=== PATIENT | female | born 1965 | race Caucasian/White ===

== ENCOUNTER 2020-07-26 12:52 | Outpatient (CLI) | payer OTHER, SELFPAY ==
--- NOTE | ~2020-07-26 | XR_ITS ---
EXAMINATION: XR chest 2V EXAM DATE: 07/26/2020 13:35 INDICATION: Post COVID. TECHNIQUE: Frontal and lateral projections of the chest obtained and reviewed. Comparison is made to prior examination from 02/17/2018. FINDINGS: The lungs are clear. There are no pleural effusions. The cardiomediastinal silhouette is within normal limits. There is no pneumothorax suspected. Patient has diffuse idiopathic skeletal h yperostosis (DISH). IMPRESSION: No acute cardiopulmonary findings. Reviewed, dictated and finalized at location A. YTICAL ENGINEER
== END 2020-07-26 12:53 | disposition home or self-care (01) ==
LOC: CHSIMG 12:56
PROVIDERS: PCP Internal Medicine; Visit Provider Internal Medicine
DX: R06.00 Dyspnea, unspecified (principal); Z09 Encounter for follow-up examination after completed treatment for conditions other than malignant neoplasm; Z86.16 Personal history of COVID-19; R52 Pain, unspecified
CPT/HCPCS: 71046

== ENCOUNTER 2020-07-27 08:25 | Outpatient (CLI) | payer OTHER, SELFPAY ==
[2020-07-27 10:32] LABS: Estimated Glomerular Filt Rate > 60
== END 2020-07-27 08:26 | disposition home or self-care (01) ==
PROVIDERS: PCP Internal Medicine; Visit Provider Internal Medicine
DX: R06.02 Shortness of breath (principal); R79.1 Abnormal coagulation profile; Z86.16 Personal history of COVID-19
CPT/HCPCS: 94060; 94726; 94729; 95012

== ENCOUNTER 2020-07-27 14:29 | Emergency (ER) | payer OTHER, SELFPAY ==
--- NOTE | ~2020-07-27 | CT_ITS ---
EXAMINATION: CTA chest PE protocol DATE: 07/27/2020 16:47 INDICATION: Shortness of breath TECHNIQUE: Computed tomography angiography (CTA) of the chest was performed with 100 mL Omnipaque-350 intravenous contrast timed to evaluate the pulmonary arteries. Coronal maximum intensity projection 3D-reconstructions were created by the technologist. The dose-length product (DLP) was 1160.04 mGy-cm . Automated exposure control and iterative reconstruction technique were employed. COMPARISON: None. FINDINGS: The pulmonary arteries are poorly opacified limiting sensitivity for pulmonary embolism. No central pulmonary emboli are identified. There is mild dependent atelectasis. A 3 mm nodule of the l eft lower lobe likely reflects old granulomatous disease. There is no pleural effusion or pneumothora x. No pathologically enlarged thoracic lymph nodes are identified. The heart size is normal. There is moderate thoracic spondylosis. IMPRESSION: 1. No pulmonary embolism identified, sensitivity limited by poor opacification of the pulmonary arter ies. No acute cardiopulmonary abnormality identified. Reviewed, dictated and finalized at location A. E ATTENDANT IMPRESSION: 1. No pulmonary embolism identified, sensitivity limited by poor opacification of the pulmonary arteries. No acute cardiopulmonary abnormality identified.
[2020-07-27] MEDS: LORazepam INJ (*CRX) 2 MG/ML VIAL 1 MG IV PUSH (15:02)
[2020-07-27 15:05] VITALS: BP 116/105; PULSE 72; RESP 20; TEMP 36.3; O2SAT 100
[2020-07-27 15:06] LABS: Basophils Absolute Auto 0.04 K/mm3 (0.00-0.10); Basophils Percent Auto 0.6 % (0.0-1.0); Eosinophils Absolute Auto 0.04 K/mm3 (0.02-0.50); Eosinophils Percent Auto 0.6 % (1.0-6.0); Hematocrit 37.4 % (35.0-49.0); Hemoglobin 12.3 g/dL (12.0-15.0); Immature Granulocyte Absolute 0.02 K/mm3 (0.00-0.00); Immature Granulocyte Percent A 0.3 % (0.0-0.0); Lymphocytes Absolute Auto 1.55 K/mm3 (1.10-4.50); Lymphocytes Percent Auto 23.9 % (18.0-42.0); Mean Corpuscular HGB Conc 32.9 g/dL (32.0-36.0); Mean Corpuscular Hemoglobin 29.5 pg (27.0-31.0); Mean Corpuscular Volume 89.7 fL (78.0-102.0); Mean Platelet Volume 10.8 fl (9.2-11.8); Monocytes Absolute Auto 0.37 K/mm3 (0.10-0.90); Monocytes Percent Auto 5.7 % (2.0-11.0); Neutrophils Absolute Auto 4.5 K/mm3 (1.7-7.2); Neutrophils Percent Auto 68.9 % (50.0-70.0); Platelet Count Result 321 K/mm3 (150-420); Red Blood Count 4.17 M/mm3 (4.20-5.40); Red Cell Distribution Width 13.3 % (11.6-14.4); White Blood Count 6.5 K/mm3 (4.8-10.8)
[2020-07-27 15:20] LABS: Partial Thromboplastin Time 25.5 SEC (23.90-30.70); Prothrombin Time 11.1 Seconds (9.50-12.10)
--- NOTE | 2020-07-27 17:19 | ED.ANXIETY ---
HPI - Anxiety General Chief Complaint: Anxiety Stated Complaint: ?blood clot Source: patient Mode of arrival: wheelchair Limitations: no limitations History of Present Illness HPI narrative: this is a 55 old female that presents with shortness of breath and sharp pain in her right mid back area patient is status post COVID was diagnosed back in approximately 2 months ago and was in [facility] and treated currently has seen her primary care physician and was having episodes of shortness of breath her primary care physician ordered a D-dimer and was sent for a CT a. The patient during the CT I had developed severe anxiety and was unable to go through with the procedure even though she was given p.o. Ativan. Her primary care physician was concerned and sent to the emergency room for further evaluation. Patient appears stable O2 sats 100% on room air, patient is afebrile and her blood pressure is 116/105, currently there is no cough no congestion no chest tightness no chest pain no fever chills no nausea vomiting. Patient has pain in her right mid back area is reproducible with palpation, patient is also having some numbness and tingling radiating down into her right arm. No neurological deficits patient appears comfortable at this time was given 1 mg Ativan IV and was able to perform the CT to rule out a pulmonary embolism. complaint: anxiety and shortness of breath Onset (ago): day(s) Symptoms: dyspnea Severity: moderate Quality: constant Place: home History of similar episodes: Yes Provoking factors: emotional stress Relieving factors: nothing Exacerbating factors: thinking about event Associated symptoms: shortness of breath Related Data Allergies Allergy/AdvReac Type Severity Reaction Status Date / Time No Known Allergies Allergy Mild Unverified 08/22/06 13:30 Review of Systems Review of Systems: All systems reviewed & are unremarkable except as noted in HPI and below PMFSH Past Medical History Medical History Anxiety Fibromyalgia HTN (hypertension) Family History Family History Other Family history of arthritis Hypertension Social History Social History Smoking status: Never smoker Alcohol intake: current Gender identity (if verbalized by the patient): Male Exam Const: General: no acute distress and alert Orientation/consciousness: patient oriented x3 HENMT: Head: normal to inspection Eyes: Conjunctivae: conjunctivae normal Pupils: Equal, round and reactive pupils present EOM: EOMs intact bilaterally Neck: Neck: normal visual inspection, no lymphadenopathy and no meningeal signs Chest: Chest palpation & inspection: normal inspection of the chest Resp: Effort & Inspection: normal respiratory effort Auscultation: clear to auscultation bilaterally Cardio: Rate: regular rate Rhythm: regular rhythm GI: GI Palp: Yes Soft to palpation : General: Yes no CVA tenderness Urinary Catheter: Urinary Catheter: patent and draining Back/Spine/Pelvis: Back: no CVA tenderness Skin: General skin exam: normal color Rashes: no rashes Neuro: General: moves all extremities, no meningeal signs and no focal motor deficits Extrem: General: normal to inspection Course Course Emergency Course: reassessment patient doing well currently minimal shortness of breath no cough no chest pain her anxiety is has improved with some IV Ativan, reviewed CT scan which showed no pulmonary embolism, advised patient to follow-up with primary care physician and will prescribed Xanax for anxiety. Vital Signs Vital signs: Vital Signs Temperature 36.3 C L 07/27/20 15:05 Pulse Rate 72 07/27/20 15:05 Respiratory Rate 20 07/27/20 15:05 Blood Pressure 116/105 H 07/27/20 15:05 Pulse Oximetry 100 07/27/20 15:05 Temperature 36
[2020-07-27 17:50] VITALS: BP 140/88; PULSE 79; RESP 20; O2SAT 95
== END 2020-07-27 17:50 | disposition home or self-care (01) ==
PROVIDERS: Emergency Provider Emergency Medicine; PCP Internal Medicine
DX: F41.9 Anxiety disorder, unspecified (principal)
CPT/HCPCS: 36415; 71275; 85025; 85610; 85730; 96374; 99283; 99284; J2060; Q9967

== ENCOUNTER 2022-08-27 15:35 | Outpatient (CLI) | payer OTHER, SELFPAY ==
--- NOTE | ~2022-08-27 | XR_ITS ---
EXAMINATION: XR chest 2V Exam Date/Time: 08/27/2022 16:15 WORKERS COMPENSATION LEGAL SECRETARY HISTORY: Dyspnea, HTN, elevated pulse rate today. Comparison: 07/26/2020, CTPA 07/27/2020. RESULT: Lines, tubes, and devices: None. Lungs and pleura: Clear. Cardiomediastinal silhouette: Stable. Dilated central pulmonary arteries as can be seen with pulmona ry arterial hypertension. Other: No acute osseous or upper abdominal finding. 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 IMPRESSION: No acute cardiopulmonary process. Findings suggestive of pulmonary arterial hypertension Reviewed, dictated and finalized at location K. ERS COMPENSATION LEGAL SECRETARY IMPRESSION: No acute cardiopulmonary process. Findings suggestive of pulmonary arterial hyp ertension
--- NOTE | ~2022-08-27 | XR_ITS ---
EXAM: XR knee RT 3V DATE: 08/27/2022 17:02 HISTORY: Chronic right knee pain, no injury. . COMPARISON: 02/17/2018. FINDINGS: Normal mineralization. No fracture or dislocation. No lytic or blastic lesion. Severe medi al and lateral joint space narrowing. Severe tricompartmental osteophytosis. No erosion or periosteal change. Soft tissues within normal limits. IMPRESSION: Severe right knee osteoarthritis. Reviewed, dictated and finalized at location K. GER PAYROLL
[2022-08-27 16:30] LABS: Add Urine Microscopic? NO; Appearance Urine Clear (Clear); Basophils Absolute Auto 0.06 K/mm3 (0.00-0.10); Basophils Percent Auto 0.9 % (0.0-1.0); Bilirubin Urine Negative (Negative); Blood Urine Negative (Negative); Color Urine Yellow (Yellow); Eosinophils Absolute Auto 0.11 K/mm3 (0.02-0.50); Eosinophils Percent Auto 1.6 % (1.0-6.0); Glucose Urine UA Negative (Negative); Hematocrit 38.1 % (35.0-49.0); Hemoglobin 12.5 g/dL (12.0-15.0); Immature Granulocyte Absolute 0.02 K/mm3 (0.00-0.00); Immature Granulocyte Percent A 0.3 % (0.0-0.0); Ketones Urine Negative (Negative); Leukocyte Esterase Ur Negative (Negative); Lymphocytes Absolute Auto 1.73 K/mm3 (1.10-4.50); Lymphocytes Percent Auto 24.7 % (18.0-42.0); Mean Corpuscular HGB Conc 32.8 g/dL (32.0-36.0); Mean Corpuscular Hemoglobin 30.5 pg (27.0-31.0); Mean Corpuscular Volume 92.9 fL (78.0-102.0); Mean Platelet Volume 11.3 fl (9.2-11.8); Monocytes Absolute Auto 0.49 K/mm3 (0.10-0.90); Neutrophils Absolute Auto 4.6 K/mm3 (1.7-7.2); Neutrophils Percent Auto 65.5 % (50.0-70.0); Nitrate Urine Negative (Negative); Platelet Count Result 266 K/mm3 (150-420); Protein Urine Negative (Negative); Red Cell Distribution Width 13.3 % (11.6-14.4); Specific Grav Ur >= 1.030 (1.010-1.020); Urobilinogen Urine 0.2 mg/dL (0.2-1.0); pH Urine 5.5 (5.0-8.0)
[2022-08-27 16:57] LABS: Alanine Aminotransferase 34 U/L (14-59); Alkaline Phosphatase 70 U/L (46-116); Anion Gap 11 mmol/L (8-16); Aspartate Amino Transferase 18 U/L (15-37); Bilirubin,Total 0.7 mg/dL (0.00-1.00); Blood Urea Nitrogen 12 mg/dL (7-18); Calcium 9.4 mg/dL (8.5-10.1); Carbon Dioxide 27 mmol/L (21-32); Chloride 103 mmol/L (98-108); Cholesterol 229 mg/dL (0-200); Estimated Glomerular Filt Rate > 60; Free T3 2.24 pg/mL (2.18-3.98); Free T4 Free Thyroxine 0.99 ng/dL (0.76-1.46); Glucose 96 mg/dL (70-99); HDL Direct 53 mg/dL (40-60); LDL Cholesterol Calculated 144 mg/dL (<130); NT Pro B Type Natriuretic Pept 109 pg/mL (0-125); Osmolality Calculated 291 mOsm/kg (285-295); Sodium 141 mmol/L (136-145); Thyroid Stimulating Hormone 2.69 uIU/mL (0.36-3.74); Total Protein 7.7 g/dL (6.4-8.2); Triglycerides 159 mg/dL (0-150)
[2022-08-27 17:01] LABS: CRP < 0.5 mg/dL (0.0-0.9)
== END 2022-08-27 15:36 | disposition home or self-care (01) ==
PROVIDERS: PCP Internal Medicine; Visit Provider Internal Medicine
DX: R06.00 Dyspnea, unspecified (principal); I10 Essential (primary) hypertension; M25.561 Pain in right knee; M17.11 Unilateral primary osteoarthritis, right knee
CPT/HCPCS: 36415; 71046; 73562; 80053; 80061; 81003; 83880; 84439; 84443; 84481; 84550; 85025; 86140

== ENCOUNTER 2022-09-09 12:10 | Outpatient (CLI) | payer OTHER, SELFPAY ==
--- NOTE | 2022-09-09 01:00 | ECHO_ITS ---
Patient Info Name: Olga Kong Age: 57 years : 1965 Gender: Female Ht: 64 in Wt: 407 lbs BSA: 3.02 m2 HR: 76 bpm BP: 191 / 110 mmHg Heart Rhythm: Sinus Rhythm Technical Quality: Fair Exam Date: 09/09/2022 1:06 PM Exam Location: [facility] Patient Status: Outpatient Admit Date: 09/09/2022 Staff Ordering Physician: Tushar West MD Customer Service Assistant: Malika Rodriguez RDCS Attending Provider: Tushar West MD Exam Type: CA echo doppler color flow Study Info Indications - pulmonary arterial HTN Complete two-dimensional, color flow and Doppler transthoracic echocardiogram is performed. Summary 1. Complete two-dimensional, color flow and Doppler transthoracic echocardiogram is performed. 2. Left ventricular chamber dimension is normal. 3. Left ventricular systolic function is normal, estimated at 60-65%. 4. The left ventricular diastolic function is grade II diastolic dysfunction. 5. There is trace mitral valve regurgitation. 6. No pulmonary hypertension, estimated pulmonary arterial systolic pressure is 21 mmHg. 7. There is mild pulmonic regurgitation. Left Ventricle Tissue doppler E/e' was not calculated. Left ventricular chamber dimension is normal. Left ventricular systolic function is normal, estimated at 60-65%. The left ventricular diastolic function is grade II diastolic dysfunction. Right Ventricle Right ventricular systolic function is normal and with normal TAPSE 2.2 cm. Right ventricular chamber dimension is normal. Left Atria Left atrial chamber dimension is normal. Right Atria Right atrial chamber dimension is normal. Aortic Valve The aortic valve is trileaflet. There is no aortic valve stenosis. There is no aortic valve regurgitation. Pulmonic Valve There is mild pulmonic regurgitation. Mitral Valve There is no mitral valve stenosis. There is trace mitral valve regurgitation. Tricuspid Valve There is no tricuspid valve regurgitation. No pulmonary hypertension, estimated pulmonary arterial systolic pressure is 21 mmHg. Pericardium/Pleural There is no pericardial effusion. Inferior Vena Cava Normal inferior vena cava with >50% collapse upon inspiration consistent with normal right atrial pressure, 5 mmHg. Aorta The aortic root size at the sinus of Valsalva is normal. Left Ventricular Outflow Tract Name Value Normal LVOT 2D LVOT Diameter 2.0 cm LVOT Doppler LVOT Peak Velocity 87 cm/s LVOT Peak Gradient 3 mmHg LVOT Mean Gradient 2 mmHg LVOT VTI 21 cm LVOT VTI/AV VTI Ratio 0.6 LVOT Stroke Volume 64 ml Pulmonic Valve Name Value Normal RVOT Doppler RVOT Peak Gradient 2 mmHg PV Doppler --------
--- NOTE | 2022-09-09 12:27 | ECG_ITS ---
Measurements Intervals [place] Rate: 58 P: 28 [place]: 184 QRS: -38 QRSD: 105 T: 49 QT: 429 QTc: 422 Interpretive Statements SINUS BRADYCARDIA LEFT AXIS DEVIATION BASELINE ARTIFACT- II, III, AVL, AVF BORDERLINE ECG NO PREVIOUS ECG AVAILABLE FOR COMPARISON Electronically Signed On 09-09-2022 13:19:28 LOCAL TELEPHONE OPERATOR by Surinder Young D.O.
== END 2022-09-09 12:11 | disposition home or self-care (01) ==
LOC: CHSIMG 12:13
PROVIDERS: PCP Internal Medicine; Visit Provider Internal Medicine
DX: I27.0 Primary pulmonary hypertension (principal); R00.1 Bradycardia, unspecified; I37.1 Nonrheumatic pulmonary valve insufficiency
CPT/HCPCS: 93005; 93306

== ENCOUNTER 2022-09-30 08:26 | Outpatient (CLI) | payer OTHER, SELFPAY ==
--- NOTE | 2022-10-14 20:33 | WPDHOMESLEEP ---
Sleep Study - Home Unattended Date of Study: 09/30/22 Ordering Provider: Tushar West MD Interpreting Provider: Olga Yusuf MD Home Sleep Study Type: Apnea Link Air Height: 1.63 m Weight: 179.623 kg Body Mass Index: 67.9 Neck Circumference (inches): 18.5 [place]: 4 Reason for Sleep Study Obstructive sleep apnea on BiPAP, needs repeat testing, equipment is old. Sleep History Olga Kong is a 57-year-old woman who has sleep apnea, currently on BiPAP. She is having retesting due her diagnosis of obstructive sleep apnea in 2006, need for new equipment and possibly oxygen. She is having some intolerance with her BiPAP machine. She has increasing dyspnea which she attributes to her COVID-19 illness in 2019. At that time she spent 12 days in an ICU but was not on a ventilator. She use BiPAP and was treated with remdesivir and convalescent plasma. She has long-haul COVID. She has fatigue, paresthesias and anxiety. There is a family history of sleep disordered breathing. She frequently has trouble sleeping with a cold. She occasionally wakes up gasping for breath at night. She frequently has breathing problems at night observed by others. She rarely sweats excessively at night. She rarely notices her heart pounding or beating irregularly at night. She rarely falls asleep during the day, never involuntarily or while driving. She occasionally has loss of muscle tone with strong emotion. She frequently has daytime difficulties due to excessive sleepiness. she is unable to work and is applying for disability. She rarely feels paralyzed on waking or falling asleep. She does not have vivid dreamlike scenes on waking or falling asleep. She is always afraid to go to sleep. She rarely has nightmares. She frequently remembers her dreams. She constantly has racing thoughts. She constantly has feelings of sadness, depression and anxiety. She occasionally has muscular tension. She occasionally notices parts of her body jerking. She occasionally kicks at night. She frequently has crawling and aching feelings in her legs and leg pain during the night. She does not have morning jaw pain. She does not grind her teeth during sleep. She constantly is bothered by pain during the day. She frequently is awakened by pain at night. She constantly wakes up feeling stiff in the morning with sore achy muscles and pain in the neck and spine. She has fatigue, memory problems, concentration difficulties, depression and insomnia. Normal bedtime is 10:00 p.m.. On some nights it may take hours to fall asleep. She typically wakes 2-3 times at night to go to the bathroom and get a drink. She is able to return to sleep usually within 15-30 minutes. She wakes the morning between 7 and 8:00 a.m.. On weekends bedtime is later, between 10:00 p.m. and 12 midnight, waking later, between 8:00 a.m. and 10:00 a.m.. She sometimes takes a nap in the afternoon or evening. A short nap is not refreshing. She is usually drowsy for an hour or longer after waking. She feels better in the evening compared to other times of day. Habits: Never smoked tobacco. Caffeine 2-3 servings a day, hot or cold T. No alcohol or recreational substances. [facility] Past Medical History Medical History (Updated 10/14/22 @ 20:58 by Olga Yusuf MD) Anxiety COVID-19 long hauler Fibromyalgia HTN (hypertension) Obstructive sleep apnea Primary osteoarthritis of right knee Seasonal asthma Surgical History Surgical History (Updated 10/14/22 @ 20:46 by Olga Yusuf MD) History of section Family History Family History Other Family history of arthritis Hypertension Social History Social History Smoking status: Never smoker Alcohol intake: current Gender identity (if verbalized by the patient): Male Medications Home Medications
[2022-10-14 20:59] VITALS: BMI 67.9
--- NOTE | 2022-11-08 17:20 | P.SLEEP_ITS ---
Sleep Study Date of Study: 11/03/2022 Ordering Provider: Tushar West MD Interpreting Physician: Olga Yusuf MD Sleep Study Type: CPAP Titration Height: 1.63 m Weight: 179.623 kg Body Mass Index: 67.9 Neck Circumference (inches): 18.5 [place]: 4 PMFSH Past Medical History Medical History (Updated 10/14/22 @ 20:58 by Olga Yusuf MD) Anxiety COVID-19 long hauler Fibromyalgia HTN (hypertension) Obstructive sleep apnea Primary osteoarthritis of right knee Seasonal asthma Surgical History Surgical History (Updated 10/14/22 @ 20:46 by Olga Yusuf MD) History of section Family History Family History Other Family history of arthritis Hypertension Social History Social History Smoking status: Never smoker Alcohol intake: current Gender identity (if verbalized by the patient): Male Medications Home Medications Medication Instructions Recorded Confirmed Type alprazolam 0.5 mg tablet (Xanax) 0.5 mg PO BID PRN anxiety #20 tabs 07/27/20 Rx Assessment and Plan Data The data obtained during this sleep study is adequate for interpretation. Certification This sleep study has been reviewed by a board certified sleep medicine physician.
== END 2022-10-02 09:50 | disposition home or self-care (01) ==
PROVIDERS: PCP Internal Medicine; Visit Provider Internal Medicine
DX: G47.33 Obstructive sleep apnea (adult) (pediatric) (principal)
CPT/HCPCS: 95806

== ENCOUNTER 2022-11-03 19:35 | Outpatient (CLI) | payer OTHER, SELFPAY ==
--- NOTE | 2022-11-11 19:34 | WPDSLEEPSTUD ---
Sleep Study Date of Study: 11/03/22 Ordering Provider: Tushar West MD Interpreting Physician: Olga Yusuf MD Sleep Study Type: CPAP Titration Height: 1.63 m Weight: 179.623 kg Body Mass Index: 67.9 Neck Circumference (inches): 19 [place]: 4 Reason for Sleep Study * 09/30/2022 Home sleep test with ApneaLink showing severe obstructive sleep apnea, apnea-hypopnea index is 36.9, with mild central sleep apnea.?Patient desaturated 83% and spent 4 minutes below 88%.? Snoring was present.? The patient had a central apnea index of 5.3 which is mild but it is greater than 5, elevated. She presents for a CPAP titration. She had an echocardiogram 09/09/2022 with a normal left ventricular ejection fraction of 60-65%.? Sleep History Olga Kong is a 57-year-old woman who has sleep apnea, currently on BiPAP.? She is having retesting due her diagnosis of obstructive sleep apnea in 2006, need for new equipment and possibly oxygen. ? She is having some intolerance with her BiPAP machine.? She has increasing dyspnea which she attributes to her COVID-19 illness in 2019.? ? At that time ,she spent 12 days in an ICU but was not on a ventilator.? She use BiPAP and was treated with remdesivir and convalescent plasma.? She has long-haul COVID. ? She has fatigue, paresthesias and anxiety.? There is a family history of sleep disordered breathing.? She frequently has trouble sleeping with a cold.? She occasionally wakes up gasping for breath at night.? She frequently has breathing problems at night observed by others.? She rarely sweats excessively at night.? She rarely notices her heart pounding or beating irregularly at night.? She rarely falls asleep during the day, never involuntarily or while driving.? She occasionally has loss of muscle tone with strong emotion.? She frequently has daytime difficulties due to excessive sleepiness.? she is unable to work and is applying for disability. ? She rarely feels paralyzed on waking or falling asleep.? She does not have vivid dreamlike scenes on waking or falling asleep.? She is always afraid to go to sleep.? She rarely has nightmares.? She frequently remembers her dreams.? She constantly has racing thoughts.? She constantly has feelings of sadness, depression and anxiety.? She occasionally has muscular tension.? She occasionally notices parts of her body jerking.? She occasionally kicks at night.??She frequently has crawling and aching feelings in her legs and leg pain during the night.? She does not have morning jaw pain.? She does not grind her teeth during sleep.? She constantly is bothered by pain during the day.? She frequently is awakened by pain at night.? She constantly wakes up feeling stiff in the morning with sore achy muscles and pain in the neck and spine.? She has fatigue, memory problems, concentration difficulties, depression and insomnia. Normal bedtime is 10:00 p.m..? On some nights it may take hours to fall asleep.? She typically wakes 2-3 times at night to go to the bathroom and get a drink.? She is able to return to sleep usually within 15-30 minutes.? She wakes the morning between 7 and 8:00 a.m..? On weekends bedtime is later, between 10:00 p.m. and 12 midnight, waking later, between 8:00 a.m. and 10:00 a.m..? She sometimes takes a nap in the afternoon or evening.? A short nap is not refreshing.? She is usually drowsy for an hour or longer after waking.? She feels better in the evening compared to other times of day. Habits: ? Never smoked tobacco.? Caffeine 2-3 servings a day, hot or cold tea. No alcohol or recreational substances. [facility] Past Medical History Medical History Anxiety COVID-19 long hauler Fibromyalgia HTN (hypertension) Obstructive sleep apnea Primary osteoarthritis of right knee Seasonal asthma Surgical History Surgical History History of section Family History Fam
[2022-11-11 19:37] VITALS: BMI 67.9
== END 2022-11-04 06:44 | disposition home or self-care (01) ==
PROVIDERS: PCP Internal Medicine; Visit Provider Internal Medicine
DX: G25.81 Restless legs syndrome (principal); G47.33 Obstructive sleep apnea (adult) (pediatric); Z68.44 Body mass index [BMI] 60.0-69.9, adult
CPT/HCPCS: 95811

== ENCOUNTER 2024-07-02 10:16 | Outpatient (CLI) | payer MEDICARE, SELFPAY ==
--- NOTE | ~2024-07-02 | XR_ITS ---
XR chest 2V Ordering provider: Tushar West MD History: 59 years Female with . htn, dyspnea/sob x1 week . Comparison: August 27, 2022 FINDINGS: MEDIASTINUM: The cardiac silhouette is not enlarged. LUNGS: No infiltrates, effusions or pneumothorax. OTHER: No free air under the diaphragm. Degenerative changes of the spine patent hepatic. IMPRESSION: No acute cardiopulmonary pathology. Reviewed, dictated and finalized at location A. AL TRAM OPERATOR
--- NOTE | 2024-07-02 10:36 | ECG_ITS ---
Test Date: 2024-07-02 11:01:22 Measurements Intervals [place] Rate: 62 P: 40 AL: 178 QRS: -19 QRSD: 101 T: 78 QT: 388 QTc: 396 Interpretive Statements SINUS RHYTHM WITH MARKED SINUS ARRHYTHMIA NONSPECIFIC T-WAVE ABNORMALITY ABNORMAL ECG Electronically Signed On 07-02-2024 17:31:14 EXPLOSIVES HANDLER by Rashid Godoy M.D.
[2024-07-02 10:53] LABS: Basophils Absolute Auto 0.05 K/mm3 (0.00-0.10); Eosinophils Absolute Auto 0.07 K/mm3 (0.02-0.50); Eosinophils Percent Auto 1.4 % (1.0-6.0); Hemoglobin 12.5 g/dL (12.0-15.0); Immature Granulocyte Absolute 0.01 K/mm3 (0.00-0.00); Immature Granulocyte Percent A 0.2 % (0.0-0.0); Lymphocytes Absolute Auto 1.54 K/mm3 (1.10-4.50); Lymphocytes Percent Auto 30.4 % (18.0-42.0); Mean Corpuscular HGB Conc 32.9 g/dL (32-36); Mean Corpuscular Hemoglobin 30.3 pg (27.0-31.0); Mean Corpuscular Volume 92.2 fL (78.0-102.0); Mean Platelet Volume 10.7 fl (9.2-11.8); Monocytes Absolute Auto 0.36 K/mm3 (0.10-0.90); Monocytes Percent Auto 7.1 % (2.0-11.0); Neutrophils Absolute Auto 3.04 K/mm3 (1.70-7.20); Neutrophils Percent Auto 59.9 % (50.0-70.0); Platelet Count Result 244 K/mm3 (150-420); Red Blood Count 4.12 M/mm3 (4.20-5.40); Red Cell Distribution Width 13.2 % (11.6-14.4); White Blood Count 5.1 K/mm3 (4.8-10.8)
[2024-07-02 10:57] LABS: Bilirubin Urine Negative (Negative); Blood Urine Negative (Negative); Color Urine Light Yellow (Yellow); Glucose Urine UA Negative (Negative); Ketones Urine Negative (Negative); Leukocyte Esterase Ur Negative (Negative); Nitrate Urine Negative (Negative); Protein Urine Negative (Negative); Specific Grav Ur 1.025 (1.010-1.020); Urobilinogen Urine 0.2 mg/dL (0.2-1.0)
[2024-07-02 11:09] LABS: Add Urine Microscopic? NO; Appearance Urine Clear (Clear)
[2024-07-02 12:01] LABS: Alanine Aminotransferase 34 U/L (14-59); Albumin Level 3.6 g/dL (3.4-5.0); Alkaline Phosphatase 57 U/L (46-116); Anion Gap 12 mmol/L (4-12); Aspartate Amino Transferase 11 U/L (15-37); Bilirubin,Total 0.8 mg/dL (0.00-1.00); Blood Urea Nitrogen 12 mg/dL (7-18); Calcium 9.2 mg/dL (8.5-10.1); Carbon Dioxide 27 mmol/L (21-32); Chloride 101 mmol/L (98-108); Cholesterol 245 mg/dL (0-200); Creatine Kinase 51 U/L (26-192); Estimated Glomerular Filt Rate > 60; Glucose 99 mg/dL (70-99); HDL Direct 57 mg/dL (40-60); LDL Cholesterol Calculated 166 mg/dL (<130); NT Pro B Type Natriuretic Pept 65 pg/mL (0-125); Osmolality Calculated 289 mOsm/kg (285-295); Potassium 3.7 mmol/L (3.5-5.1); Sodium 140 mmol/L (136-145); Thyroid Stimulating Hormone 4.03 uIU/mL (0.36-3.74); Total Protein 6.8 g/dL (6.4-8.2); Triglycerides 112 mg/dL (0-150); Troponin I 7.7 ng/L (0.00-60.4)
[2024-07-02 12:05] LABS: CRP < 0.5 mg/dL (0.0-0.9); Creatine Kinase MB < 0.50 ng/mL (0.00-5.00)
== END 2024-07-02 10:17 | disposition home or self-care (01) ==
LOC: CHSLAB 10:21
PROVIDERS: PCP Internal Medicine; Visit Provider Internal Medicine
DX: I10 Essential (primary) hypertension (principal); R06.00 Dyspnea, unspecified; R00.1 Bradycardia, unspecified; R94.31 Abnormal electrocardiogram [ECG] [EKG]
CPT/HCPCS: 36415; 71046; 80053; 80061; 81003; 82550; 82553; 83880; 84443; 84484; 85025; 86140; 93005

== ENCOUNTER 2024-07-08 09:40 | Outpatient (CLI) | payer MEDICARE, SELFPAY ==
--- OUTSIDE RECORDS SUMMARY | 2024-07-15 23:56 | XMS_ITS | Encounter Summary ---
Author Organization [facility] Address [facility] [facility] [address] [place] [address] Care Team Providers Care Information Coder Name Role Phone Tushar West MD Primary Care Provider [phone] Nsa Arndt MD Unavailable Pascual Mccullough MD Unavailable [phone] Reason for Visit * Reason Comments Edema * Physical Therapy (Routine) - Closed Specialty Diagnoses / Procedures Referred By Contrenato schwartz Referred To Contact [facility] Physical Therapy Diagnoses Lipedema Lymphedema of left lower extremity Procedures OFFICE/OUTPT VISIT,NEW,LEVL III OFFICE/OUTPT VISIT,NEW,LEVL IV OFFICE/OUTPT VISIT,NEW,LEVL V OFFICE/OUTPT VISIT,EST,LEVL III OFFICE/OUTPT VISIT,EST,LEVL IV OFFICE/OUTPT VISIT,EST,LEVL V Mariola Mo, FAMILY PRACTICE MEDICAL DOCTOR-BC [address] [facility] [place] [address] Phone: tel: fax: [facility] [address] [place] [address] Phone: tel: fax: Referral ID Status Reason Start Date Expiration Date Visits Re quested Visits Authorized [id number] Closed 09/06/2022 10/06/2023 30 30 Encounter Details Date Type Department Care Team (Late st Contact Info) Description 10/21/2022 2:30 PM CDT - 10/21/2022 11:59 PM CDT Hospital Encounter [facility] [address] [place] [address] Mariola Mo, [facility]- [address] [place] [address] Nia Hale, VICE CHAIR Edema Discharge Disposition: Home or Self Care (Routine Discharge) Social History Tobacco Use Types Packs/Day Years Used Date Smoking Tobacco: Never Smokeless Tobacco: Never Alcohol Use Standard Drinks/Week Comments Never 0 (1 standard drink = 0.6 oz pur e alcohol) AUDIT-C Answer Date Recorded Frequency of Alcohol Consumption Never 11/21/2019 Average Number of Drinks Not on file 020 Frequency of Binge Drinking Not on file 11/04 Comments No Sex and Gender Information Value Date Recorded Sex Assigned at Not on file 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 No / Unsure 10/21/2022 2:30 PM CDT documented as of this encounter Functional Status * RETIRED Are you deaf or do you have serious difficulty hearing Answer Date of Assessment Author Status No 11/21/2019 9:39 AM CDT Activ e * RETIRED Are you blind or do you have serious difficulty seeing, even when wearing glasses? Answer Date of Assessment Author Status No 11/21/2019 9:39 AM CDT Activ e * Do you have serious difficulty walking or climbing stairs? Answer Date of Assessment Author Status No 11/21/2019 9:39 AM CDT Corrina Gordon RN Active * Do you have difficulty dressing or bathing? Answer Date of Assessment Author Status No 11/21/2019 9:39 AM CDT Corrina Gordon RN Active * Because of a physical, mental, or emotional condition, do you have difficulty doing errands alone such as visiting a doctor's office or shopping? Answer Date of Assessment Author Status No 11/21/2019 9:39 AM Corrina Arteaga RN Active documented as of this encounter Mental Status * Because of a physical, mental, or emotional condition, do you have serious difficulty concentrating, remembering, or making decisions? Answer Entry Date Author Status No 11/21/2019 9:39 AM Corrina Arteaga RN Active documented in this encounter Medications at Time of Discharge albuterol sulfate HFA 108 (90 Base) MCG/ACT inhaler inhale 1 to 2 puffs by mouth every 4 hours as needed 08/27/2022 aspirin 81 MG chewable tablet Chew 1 tablet (81 mg total) by mouth daily. busPIRone (BUSPAR) 10 MG tablet Take 1 tablet (10 mg total) by mouth 3 (three) times daily. 08/31/2022 trpyuxp-[id number]-fm nc 333-133-5 MG Tab Take 1 tablet by mouth daily. escitalopram (LEXAPRO) 10 MG tablet Take 1 tablet (10 mg total) by mouth daily. 08/31/2022 gabapentin 300 MG capsule Take 1 capsule (300 mg total) by mouth 2 (two) times a day. losartan-hydroCHLORO thiazide (HYZAAR) 100-12.5 MG tablet Take 1 tablet by mouth daily. 08/31/2022 omega-3 fatty acid (FISH OIL) 500 MG capsule Take 1 capsule (500 mg total) by mouth daily. vitamin D2, ergocalciferol, (DRISDOL) 1.25 mg capsule Take 1 capsule (1.25 mg total) by mouth. carvedilol (COREG) 12.5 MG tablet Take 12.5 mg by mouth 2 (two) times daily with meals. 08/31/2022 3 diclofenac EC (VOLTAREN) 75 MG tabletIndications:Pr imary osteoarthritis of right knee Take 1 tablet (75 mg total) by mouth 2 (two) times daily. 60 tablet 2 09/06/2022 3 LORazepam 0.5 MG tablet Take 1-2 tablets (0.5-1 mg total) by mouth nightly as needed for Anxiety. 07/30/202 4 oxybutynin 5 MG tablet Take 2 tablets (10 mg total) by mouth 2 (two) times daily. 4 traMADol (ULTRAM) 50 MG tabletIndications:Ac danyelle Pain < 3 Day Supply Take 1 tablet (50 mg total) by mouth every 6 (six) hours as needed for Pain. Indications: Acute Pain < 3 Day Supply 10 tablet 10/05/2022 3 documented as of this encounter Progress Notes * Nia Hale, VICE CHAIR - 10/21/2022 3:00 PM CDT PHYSICAL THERAPY TREATMENT NOTE Time In: 1500 Time Out: 1553 Total Time: 53 minutes Name: Olga Kong : 1965 Past Medical History: Diagnosis Date ??? Allergies ??? Anxiety ??? Depression ??? Hypertension ??? Lipedema ??? Lymphedema ??? Neuropathy ??? Obesity ??? Sleep apnea ??? Urinary bladder incontinence Past Surgical History: Procedure Laterality Date ??? SECTION, CLASSIC ??? HYSTERECTOMY Subjective: Diagnosis:Secondary LLE Lymphedema/ B Lipidemia Referring Physician: VILMA Su-BC Onset Date: Chronic-Childhood Treatment Day: 10 Total Approved Visits: 20 Therapy Plan of Care: 5x/week with decreasing frequency as patient becomes more independent with self-MLD and applying SS bandaging. Return to MD: As needed Subjective Note: Pt states that her right leg is hurting today from the colder weather. Pt states that her left leg continues to feel good. Pt states that they called her about her garments and that they would cost close to $350 and patient states that she is going to see if she can get them elsewhere for cheaper. Location of Pain: BLEs Pre-treatment Pain: 0/10 Post-treatment Pain: 0/10 Restriction/Precaution: No short neck sequence unable to tolerate prone Objective: Treatment Performed: Therapeutic Exercise - 50600 Minutes Performed: Intervention: Manual Therapy - 54224 Minutes Performed: 53 minutes Intervention: -Opened left inguinal lymph nodes, followed by MLD down L LE in recumbent -SS multi-layered wrap applied to LLE following MLD -kathya H-rosidal soft H-6in artiflex H-2 kidney foam -8cm, 10cm, 12cm SS bandage Neuromuscular Reeducation - 51897 Minutes Performed: Intervention: Therapeutic Activities - 06359 Minutes Performed: H-Measurement of L LE and trunk for garments H-Self-MLD H- Measuring for garments and pump trial Modalities Minutes Performed: Intervention: Total Treatment Time: 53 minutes Education Performed: ASSESSMENT: Note: Pt continues to tolerate MLD well without any reverse reactions or pain this date. Pt presents with decrease in edema and softer skin. Pt then wrapped with SS bandages for the continuation of lymphatic drainage. Pt states that she was approved for the lymphatic pump from [employer], so patient will await for that and until then will continue with self MLD and wrapping at home. Will see patientone more time next week so see how things are going and then will probably discharge from therapy. PLAN: Pt will complete one more visit in [facility] for further education on HEP, review of self-MLD, and wrapping. documented in this encounter Plan of Treatment Not on file documented as of this encounter Visit Diagnoses Diagnosis Lipedema- Primary Lymphedema of left leg Other lymphedema documented in this encounter Care Teams Information Coder Relationship Specialty Start Date End Date Tushar West MD [address] [place] [address] PCP - General INTERNAL MEDICINE 11/21/19 Nas Arndt MD [address] [place] [address] Consulting Physician INTERNAL MEDICINE 09/13/22 Pascual Mccullough MD [address] [place] [address] [place] [address] ORTHOPAEDIC SURGERY 09/13/22 documented as of this encounter
--- OUTSIDE RECORDS SUMMARY | 2024-07-15 23:56 | XMS_ITS | Encounter Summary ---
Author Organization [facility] Address [facility] [place] [address] [place] [address] Care Team Providers Care Chief Petroleum Engineer Name Role Phone Tushar West MD Primary Care Provider [phone] Nas Arndt MD Unavailable Pascual Mccullough MD Unavailable [phone] Reason for Visit * Reason Comments Injection RIGHT knee Encounter Details Date Type Department Care Team (Late st Contact Info) Description 04/14/2023 10:15 AM CDT Office Visit [facility] [address] [address] Mariola Mo, [facility] [address] [place] [place] [address] Injection (RIGHT knee) Social History Tobacco Use Types Packs/Day Years Used Date Smoking Tobacco: Never Smokeless Tobacco: Never Tobacco Cessation:Counseling Given: Not Answered Alcohol Use Standard Drinks/Week Comments Not Currently 0 (1 standard drink = 0.6 oz pur e alcohol) AUDIT-C Answer Date Recorded Frequency of Alcohol Consumption Never 11/21/2019 Average Number of Drinks Not on file 020 Frequency of Binge Drinking Not on file 11/04 Comments No Sex and Gender Information Value Date Recorded Sex Assigned at Not on file 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 Gender Identity Not on file Sexual Orientation Not on file documented as of this encounter Last Filed Vital Signs Vital Sign Reading Time Taken Comments Blood Pressure - - Pulse - - Temperature - - Respiratory Rate - - Oxygen Saturation - - Inhaled Oxygen Concentration - - Weight 169.6 kg (374 lb) 04/14/2023 10:24 AM CDT Height 154.9 cm (5' 1 ) 04/14/2023 10:24 AM CDT Body Mass Index 70.67 04/14/2023 10:24 AM CDT documented in this encounter Functional Status * RETIRED Are [...] 9:39 AM CDT Corrina Gordon RN Active documented as of this encounter Mental Status * Because of a physical, mental, or emotional condition, do you have serious difficulty concentrating, remembering, or making decisions? Answer Entry Date Author Status No 11/21/2019 9:39 AM MADDYT Corrina Gordon RN Active documented in this encounter Progress Notes * Pearl Molina MA - 04/14/2023 10:15 AM CDT Olga is a 58-year-old female who presents for Injection (RIGHT knee) Patient reports to office today for RIGHT knee injection. Patients last injection was 12/13/22 withwith good relief for 4 months. Patient reports pain above the patella and to the medial knee. She reports some swelling. Denies numbness, tingling and bruising. Patient reports pain worsens with prolonged standing. She does report night pain. Patient takes ibuprofen for pain with some relief. Patient does not us ice.heat. Patient uses rolling walker. Patient has not been to physical therapy for RIGHT knee. Patient is not employed. No additional nursing task documentation needed. Vitals: 04/14/23 1024 Weight: (!) 169.6 kg (374 lb) Height: 5' 1 (1.549 m) Current Outpatient Medications Medication Sig albuterol sulfate HFA 108 (90 Base) MCG/ACT inhaler inhale 1 to 2 puffs by mouth every 4 hours as needed aspirin 81 MG chewable tablet Chew 1 tablet (81 mg total) by mouth daily. busPIRone (BUSPAR) 10 MG tablet Take 1 tablet (10 mg total) by mouth 3 (three) times daily. bsjkoai-oehwwrsza-dqvb 333-133-5 MG Tab Take 1 tablet by mouth daily. carvedilol (COREG) 25 MG tablet COMPRESSION STOCKINGS 20-30 MMHG Compression stockings, knee-high, open or closed toe Dx: I83.893 escitalopram (LEXAPRO) 10 MG tablet Take 1 tablet (10 mg total) by mouth daily. gabapentin 300 MG capsule Take 1 capsule (300 mg total) by mouth 2 (two) times a day. LORazepam 0.5 MG tablet Take 1-2 tablets (0.5-1 mg total) by mouth nightly as needed for Anxiety. losartan-hydroCHLOROthiazide (HYZAAR) 100-12.5 MG tablet Take 1 tablet by mouth daily. omega-3 fatty acid (FISH OIL) 500 MG capsule Take 1 capsule (500 mg total) by mouth daily. oxybutynin 5 MG tablet Take 2 tablets (10 mg total) by mouth 2 (two) times daily. vitamin D2, ergocalciferol, (DRISDOL) 1.25 mg capsule Take 1 capsule (1.25 mg total) by mouth. Past Surgical History: Procedure Laterality Date SECTION, CLASSIC HYSTERECTOMY Allergies Patient has no known allergies. [x] Total Ecyc-xv-Eeay Assessment Time: 0-15 minutes Additional Contributory Factors NONE * Mariola Mo, CARTON CATCHER-BC - 04/14/2023 10:15 AM CDT Chief Complaint: Injection (RIGHT knee) History of Present Illness: Olga Kong is a 58-year-old female who presents to the office for Injection (RIGHT knee) Patient reports to office today for RIGHT knee injection. Patients last injection was 12/13/22 withwith good relief for 4 months. Patient reports pain above the patella and to the medial knee. She reports some swelling. Denies numbness, tingling and bruising. Patient reports pain worsens with prolonged standing. She does report night pain. Patient takes ibuprofen for pain with some relief. Patient does not us ice.heat. Patient uses rolling walker. Patient has not been to physical therapy for RIGHT knee. Patient is not employed. While speaking with patient she voices that she is also starting to have increased LEFT knee pain and is wanting to know if she can receive an injection on her LEFT today as well. She states that LEFT is not as bad as her RIGHT but is starting to increase with activities and prolonged weight bearing. She denies any injury to LEFT knee. She also has seen good results with her lower leg swelling and has been using compression socks and also working on weight loss. PREVIOUS HPI:12/13/22 Patient in clinic today with RIGHT knee pain. Denies injury. Patient denies radiation, numbness, tingling, or swelling. Pain worse with weight bearing. Describes the pain above the patella. Pain disrupts sleep. Patient takes diclofenac along with ice, with good relief. Patient had cortisone injection on last visit with good results, lasting approx. 2 months. Patient is not employed. PREVIOUS HPI: 09/06/2022 Patient is in clinic today for pain in the RIGHT knee. She locates the pain in the medial aspect ofthe RIGHT knee without radiation. She is having occasional night pain. She states that it is Hot to the touch. She states swelling noted at times. She states no numbness or tingling noted. She states that she has had prior injections to the RIGHT knee but it has been approximately more than 10 years ago. She has not had any PT for the RIGHT knee. She is in clinic today with a wheeled walker forambulation. During discussion she does report chronic lower leg swelling and having difficulty with weight loss. She reports that she has always had lower leg swelling for as long as she can remember and her mother had struggled with lower leg swelling as well. She has tried weight loss diets without success. She reports no treatment of her lower leg swelling. She denies any known injury and states she was just recently diagnosed with pulmonary edema. ROS: See HPI for pertinent positives Problem List: Patient Active Problem List Diagnosis Elevated CO2 level Respiratory failure (HHS/HCC) ([facility]) Primary osteoarthritis of right knee Lymphedema of right lower extremity Lipedema Lymphedema Class 3 severe obesity due to excess calories without serious comorbidity with body mass index (BMI) of 60.0 to 69.9 in adult ([facility]) Primary osteoarthritis of left knee History: Past Medical History: Diagnosis Date Allergies Anxiety Depression Hypertension Lipedema Lymphedema Neuropathy Obesity Sleep apnea Urinary bladder incontinence Past Surgical History: Procedure Laterality Date SECTION, CLASSIC HYSTERECTOMY Family History Problem Relation Name Age of Onset Heart Disease Mother Kidney Disease Mother Heart Disease Father Diabetes Brother Family Status Relation Name Status Mother Alive Father Brother (Not Specified) MGM MGF PGM PGF Social History Socioeconomic History Marital status: Tobacco Use Smoking status: Never Smokeless tobacco: Never Vaping Use Vaping Use: Never used Substance and Sexual Activity Alcohol use: Not Currently Drug use: Never Sexual activity: Not Currently Other Topics Concern Exercise No Special Diet No Caffeine Concern No Service No Blood Transfusions No Occupational Exposure No Hobby Hazards No Sleep Concern No Stress Concern No Weight Concern No Back Care No Bike Helmet No Seat Belt Yes Self-Exams Yes Wheelchair No Walker No Upper extremity braces/slings No Lower extermity braces/slings No Self Care No Medications: Current Outpatient Medications: albuterol sulfate HFA 108 (90 Base) MCG/ACT inhaler, inhale 1 to 2 puffs by mouth every 4 hours as needed, Disp: , Rfl: aspirin 81 MG chewable tablet, Chew 1 tablet (81 mg total) by mouth daily., Disp: , Rfl: busPIRone (BUSPAR) 10 MG tablet, Take 1 tablet (10 mg total) by mouth 3 (three) times daily., Disp:, Rfl: eingafo-srknvbglc-znqn 333-133-5 MG Tab, Take 1 tablet by mouth daily., Disp: , Rfl: carvedilol (COREG) 25 MG tablet, , Disp: , Rfl: COMPRESSION STOCKINGS, 20-30 MMHG Compression stockings, knee-high, open or closed toe Dx: I83.893,Disp: 2 Container, Rfl: 5 escitalopram (LEXAPRO) 10 MG tablet, Take 1 tablet (10 mg total) by mouth daily., Disp: , Rfl: gabapentin 300 MG capsule, Take 1 capsule (300 mg total) by mouth 2 (two) times a day., Disp: , Rfl: LORazepam 0.5 MG tablet, Take 1-2 tablets (0.5-1 mg total) by mouth nightly as needed for Anxiety.,Disp: , Rfl: losartan-hydroCHLOROthiazide (HYZAAR) 100-12.5 MG tablet, Take 1 tablet by mouth daily., Disp: , Rfl: omega-3 fatty acid (FISH OIL) 500 MG capsule, Take 1 capsule (500 mg total) by mouth daily., Disp: , Rfl: oxybutynin 5 MG tablet, Take 2 tablets (10 mg total) by mouth 2 (two) times daily., Disp: , Rfl: vitamin D2, ergocalciferol, (DRISDOL) 1.25 mg capsule, Take 1 capsule (1.25 mg total) by mouth., Disp: , Rfl: Current Facility-Administered Medications: lidocaine (XYLOCAINE) 1 % injection SOLN 8 mL, 8 mL, Other, Once, PRINCE MiP-SRIRAM methylPREDNISolone acetate (DEPO-Medrol) injection 80 mg, 80 mg, Other, Once, VILMA Mi-BC Review of patient's allergies indicates: No Known Allergies Objective: Body mass index is 70.67 kg/m??. Last Recorded Weight 04/14/23 1024 Weight: (!) 169.6 kg (374 lb) Physical exam: Constitutional: Alert and in no acute distress. Neurological: The patient was oriented to person, place, and time. Eyes: The sclera and conjunctiva were normal ENT: Hearing was normal. Neck: The appearance of the neck was normal. Cardiovascular: Normal pulses. Pulmonary: No respiratory distress. Skin: No injuries or skin lesion. Musculoskeletal: EXAM of BILATERAL knees today reveal medial joint line tenderness with palpation, no groin pain with hip rotation, range of motion 0-95 on RIGHT and 0-100 on LEFT, range of motion islimited secondary to body habitus, improved lower swelling compared to previous visit, antalgic gait, palpable pedal pulses. Results: X-ray of bilateral knees today demonstrate rvbc-cf-jyvy medial compartment space narrowing osteoarthritis consistent with end-stage osteoarthritis and mild varus deformity and no acute or healing bony injury or dislocation. Procedure: Procedure: Injection of the Knee Joint on the bilateral. Indications for the procedure include Osteoarthritis and Joint Pain. The procedure's were discussed with the patient. Verbal consent was obtained prior to the procedure. Procedure Note: Olga was prepped and draped in the usual sterile fashion using alcohol and usingbetadine. Anesthesia: Ethyl chloride spray was used as a topical anesthetic. A 22 gauge and 1.5 Inch needle was used to inject 8 mL lidocaine 1% and 1 mL methylprednisolone 80 mg/mL. Dressing: A bandage was applied. Post-Procedure: the patient tolerated the procedure well. Complications: there were no complications. Follow-up in the office prn. Assessment: Encounter Diagnose(s) ICD-10-CM SNOMED CT(R) 1. Primary osteoarthritis of right knee M17.11 OSTEOARTHRITIS OF RIGHT KNEE JOINT methylPREDNISolone acetate (DEPO-Medrol) injection 80 mg lidocaine (XYLOCAINE) 1 % injection SOLN 8 mL methylPREDNISolone acetate (DEPO-Medrol) injection 80 mg lidocaine (XYLOCAINE) 1 % injection SOLN 8 mL 2. Primary osteoarthritis of left knee M17.12 OSTEOARTHRITIS OF LEFT KNEE JOINT XR KNEE LT 2V methylPREDNISolone acetate (DEPO-Medrol) injection 80 mg lidocaine (XYLOCAINE) 1 % injection SOLN 8 mL Plan: Reviewed images with patient in the office today. She is working on her weight loss as well as her lower leg swelling which has improved and has been compliant with wearing a compression style socks which she reports does feel better after prolonged activities. To provide her some relief in her knee pain she was given bilateral knee injections in the office today and tolerated well. Patient is aware that she may receive these injections every 3 months as needed for pain. Activity as tolerated. She will continue to work on her weight loss and keep her mobility. She will follow up as needed forher knee pain. Follow up: Return if symptoms worsen or fail to improve. DONNA MI documented in this encounter Plan of Treatment Not on file documented as of this encounter Results * XR KNEE LT 2V (04/14/2023 1:28 PM CDT) Anatomical Region Laterality Modality Knee Radiographic Kathleen ging 04/15/2023 6:57 AM CDT Impressions 04/15/2023 6:59 AM CDT IMPRESSION: Severe medial femoral tibial compartment osteoarthritis Referred By: ?? Interpreted By: Mio Brooks MD, 04/15/2023 6:57 AM Narrative 04/15/2023 6:59 AM CDT Indication: Knee pain FINDINGS: 3 views left knee demonstrate tricompartmental osteophytes. ??There is a small joint effusion. ??No acute fracture, dislocation, or subluxation is seen. ??Chondrocalcinosis is noted with severe osteoarthritic changes in the medial femoral tibial compartment. Procedure Note Terell Brooks MD - 04/15/2023 Indication: Knee pain FINDINGS: 3 views left knee demonstrate tricompartmental osteophytes.There is a small joint effusion. No acute fracture, dislocation, orsubluxation is seen. Chondrocalcinosis is noted with severeosteoarthritic changes in the medial femoral tibial compartment. IMPRESSION: Severe medial femoral tibial compartment osteoarthritis Referred By: Interpreted By: Mio Brooks MD, 04/15/2023 6:57 AM Mariola Mo CARTON CATCHER-BC GENERAL IMAGING Final Resu lt documented in this encounter Visit Diagnoses Diagnosis Primary osteoarthritis of right knee- Primary Primary localized osteoarthrosis, lower leg Primary osteoarthritis of left knee Primary localized osteoarthrosis, lower leg documented in this encounter Administered Medications Inactive Administered Medications - up to 3 most recent administrations Medication Order MAR Action Action Date Dose Rate Site lidocaine (XYLOCAINE) 1 % injection SOLN 8 mL 8 mL, Other, Once, 1 dose, On 04/14/23 at 1130Indications:Primary osteoarthritis of right knee Given 04/14/2023 11:05 AM CDT 8 mLs lidocaine (XYLOCAINE) 1 % injection SOLN 8 mL 8 mL, Other, Once, 1 dose, On Fri04/14/23 at 1145Indications:Primary osteoarthritis of right knee Given 04/14/2023 11:45 AM CDT 8 mLs methylPREDNISolone acetate (DEPO-Medrol) injection 80 mg 80 mg, Other, Once, 1 dose, On Fri04/14/23 at 1130, Shake WellIndications:Primary osteoarthritis of right knee Given 04/14/2023 11:06 AM CDT 80 mg methylPREDNISolone acetate (DEPO-Medrol) injection 80 mg 80 mg, Other, Once, 1 dose, On Fri04/14/23 at 1145, Shake WellIndications:Primary osteoarthritis of right knee Given 04/14/2023 11:45 AM CDT 80 mg documented in this encounter Care Teams Chief Petroleum Engineer Relationship Specialty Start Date End Date Tushar West MD [address] [place] [address] PCP - General INTERNAL MEDICINE 11/21/19 Nas Arndt MD [address] [place] [address] Consulting Physician INTERNAL MEDICINE 09/13/22 Pascual Mccullough MD [address] [facility] [place] [address] ORTHOPAEDIC SURGERY 09/13/22 documented as of this encounter
--- OUTSIDE RECORDS SUMMARY | 2024-07-15 23:56 | XMS_ITS | Encounter Summary ---
Author Organization [facility] Address [facility] [place] [address] [place] [address] Care Team Providers Care Machine Marker Name Role Phone Tushar West MD Primary Care Provider [phone] aNs Arndt MD Unavailable Pascual Mccullough MD Unavailable [phone] Encounter Details Date Type Department Care Team (Late st Contact Info) Description 10/06/2023 General Cyberneticst Message Enc [facility] [address] [address] Mariola Mo, DIRECTOR UTILIZATION MANAGEMENT- [address] [facility] [place] [id number] Visit Follow Up Social History Tobacco Use Types Packs/Day Years Used Date Smoking Tobacco: Never Smokeless Tobacco: Never Alcohol Use Standard Drinks/Week Comments Not Currently 0 (1 standard drink = 0.6 oz pur e alcohol) AUDIT-C Answer Date Recorded Frequency of Alcohol Consumption Never 11/21/2019 Average Number of Drinks Not on file 020 Frequency of Binge Drinking Not on file 11/04 Comments No Sex and Gender Information Value Date Recorded Sex Assigned at Not on file Legal Sex Female 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 Answer Date of Assessment Author Status No 11/21/2019 9:39 AM Corrina Arteaga RN Active * Because of a physical, [...] Arteaga RN Active documented in this encounter Plan of Treatment Not on file documented as of this encounter Visit Diagnoses Not on filedocumented in this encounter Care Teams Machine Marker Relationship Specialty Start Date End Date Tushar West MD [address] [place] [address] PCP - General INTERNAL MEDICINE 11/21/19 Nas Arndt MD [address] [place] [address] Consulting Physician INTERNAL MEDICINE 09/13/22 Pascual Mccullough MD [address] [facility] [place] [address] ORTHOPAEDIC SURGERY 09/13/22 documented as of this encounter
--- OUTSIDE RECORDS SUMMARY | 2024-07-15 23:56 | XMS_ITS | Encounter Summary ---
Author Organization [facility] Address [facility] [facility] [place] [address] [place] [address] Care Team Providers Care Record Press Tender Name Role Phone Tushar West MD Primary Care Provider [phone] Nas Arndt MD Unavailable Pascual Mccullough MD Unavailable [phone] Reason for Visit * Reason Comments Edema * Physical Therapy (Routine) - Closed Specialty Diagnoses / Procedures Referred By Contrenato schwartz Referred To Contact [facility] Physical Therapy Diagnoses Lipedema Lymphedema of left lower extremity Procedures OFFICE/OUTPT VISIT,NEW,LEVL III OFFICE/OUTPT VISIT,NEW,LEVL IV OFFICE/OUTPT VISIT,NEW,LEVL V OFFICE/OUTPT VISIT,EST,LEVL III OFFICE/OUTPT VISIT,EST,LEVL IV OFFICE/OUTPT VISIT,EST,LEVL V Mariola Mo, SOCIAL SECURITY BENEFITS INTERVIEWER-BC [address] [facility] [place] [address] Phone: tel: fax: [facility] [address] [place] [address] Phone: tel: fax: Referral ID Status Reason Start Date Expiration Date Visits Re quested Visits Authorized [id number] Closed 09/06/2022 10/06/2023 30 30 Encounter Details Date Type Department Care Team (Late st Contact Info) Description 10/02/2022 4:00 PM CDT - 10/02/2022 11:59 PM CDT Hospital Encounter [facility] [address] [place] [address] Mariola Mo, SOCIAL SECURITY BENEFITS INTERVIEWER- [address] [facility] [place] [address] Ania Awan, PT [address] [place] [address] Edema Discharge Disposition: Home or Self Care [...] on file 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 No / Unsure 10/02/2022 4:05 PM CDT documented as of this encounter [...] by mouth 3 (three) times daily. 08/31/2022 fexjaub-rygirekrd-nc nc 333-133-5 MG Tab Take 1 tablet [...] by mouth nightly as needed for Anxiety. 4 oxybutynin 5 MG tablet Take 2 tablets (10 mg total) by mouth 2 (two) times daily. 4 documented as of this encounter Progress Notes * Ania Roper Awan, PT - 10/02/2022 4:00 PM CDT PHYSICAL THERAPY TREATMENT NOTE Time In: 1430 Time Out: 1525 Total Time: 55 minutes Name: Olga Kong : 1965 Past Medical History: Diagnosis Date ??? Allergies ??? Anxiety ??? Depression ??? Hypertension ??? Lipedema ??? Lymphedema ??? Neuropathy ??? Obesity ??? Sleep apnea ??? Urinary bladder incontinence Past Surgical History: Procedure Laterality Date ??? SECTION, CLASSIC ??? HYSTERECTOMY Subjective: Diagnosis: LLE Lymphedema/ B Lipidemia Referring Physician: DONNA Su Onset Date: Chronic-Childhood Treatment Day: 7 Total Approved Visits: 20 Therapy Plan of Care: 5x/week with decreasing frequency as patient becomes more independent with self-MLD and applying SS bandaging. Return to MD: As needed Subjective Note: Pt states that her left leg was hurting a little yesterday, but is feeling fine today and denies any pain pre treatment. Location of Pain: BLEs Pre-treatment Pain: 0/10 Post-treatment Pain: 0/10 Restriction/Precaution: No short neck sequence unable to tolerate prone Objective: Treatment Performed: Therapeutic Exercise - 47333 Minutes Performed: Intervention: Manual Therapy - 76129 Minutes Performed: 45 minutes Intervention: -Opened left inguinal lymph nodes, followed by MLD down L LE in recumbent -SS multi-layered wrap applied to LLE following MLD -stockinemartell H-rosidal soft H-6in artiflex H-2 kidney foam -8cm, 10cm, 12cm SS bandage Neuromuscular Reeducation - 09433 Minutes Performed: Intervention: Therapeutic Activities - 93552 Minutes Performed: 10 -Self-MLD - Measuring for garments and pump trial Modalities Minutes Performed: Intervention: Total Treatment Time: 55 minutes Education Performed: ASSESSMENT: Note: Pt presents with noticeable softness present in entire LLE. She will be decreases to once a week starting next week. PT issued instructions for patient to perform self MLD on days she is not attherapy and to continue wrapping leg throughout the day. PLAN: Plan for next visit: MLD with abdominal sequence, opening left inguinal lymph nodes followed by MLDdown LLE. SS multi layered wrap applied after MLD to lower left leg. Measure for compression garments and assess for tactile medical vaso pump after completion of 4 weeks of treatment. documented in this encounter Plan of Treatment Not on file documented as of this encounter Visit Diagnoses Diagnosis Lipedema- Primary Lymphedema of left leg Other lymphedema documented in this encounter Care Teams Record Press Tender Relationship Specialty Start Date End Date Tushar West MD [address] [place] [address] PCP - General INTERNAL MEDICINE 11/21/19 Nas Arndt MD [address] [place] [address] Consulting Physician INTERNAL MEDICINE 09/13/22 Pascual Mccullough MD [address] [facility] [place] [address] ORTHOPAEDIC SURGERY 09/13/22 documented as of this encounter
--- OUTSIDE RECORDS SUMMARY | 2024-07-15 23:56 | XMS_ITS | Clinical Summary ---
Author Organization [facility] Address [facility] [place] [address] [place] [address] Care Team Providers Care Rehabilitation Therapist Name Role Phone Tushar West MD Primary Care Provider [phone] Nas Arndt MD Unavailable Pascual Mccullough MD Unavailable [phone] Allergies No known active allergies Medications gabapentin 300 MG capsule Take 1 capsule (300 mg total) by mouth 2 (two) times a day. Active aspirin 81 MG chewable tablet Chew 1 tablet (81 mg total) by mouth daily. Active busPIRone (BUSPAR) 10 MG tablet Take 1 tablet (10 mg total) by mouth 3 (three) times daily. 3 Active albuterol sulfate HFA 108 (90 Base) MCG/ACT inhaler inhale 1 to 2 puffs by mouth every 4 hours as needed 3 Active losartan-hydroC HLOROthiazide (HYZAAR) 100-12.5 MG tablet Take 1 tablet by mouth daily. 3 Active escitalopram (LEXAPRO) 10 MG tablet Take 1 tablet (10 mg total) by mouth daily. 3 Active omega-3 fatty acid (FISH OIL) 500 MG capsule Take 1 capsule (500 mg total) by mouth daily. Active vitamin D2, ergocalciferol, (DRISDOL) 1.25 mg capsule Take 1 capsule (1.25 mg total) by mouth. Active calcium-magnesi um-zinc 333-133-5 MG Tab Take 1 tablet by mouth daily. Active carvedilol (COREG) 25 MG tablet 3 Active COMPRESSION STOCKINGSIndica tions:Lipedema 20-30 MMHG Compression stockings, knee-high, open or closed toe Dx: I83.893 2 Container 5 3 Active oxybutynin XL (DITROPAN-XL) 10 MG 24 hr tablet Take 1 tablet (10 mg total) by mouth 2 (two) times daily. 3 Active LORazepam (ATIVAN) 1 MG tablet Take 1 tablet (1 mg total) by mouth. 4 Active Hospital, Clinic, or Other Facility Administered Medication Ordered Dose Route Frequency Start Date End Date Status methylPREDNISolone acetate (DEPO-Medrol) injection 80 mgIndications:Primary osteoarthritis of left knee 80 mg Other Once 04/14/2023 Active lidocaine (XYLOCAINE) 1 % injection SOLN 8 mLIndications:Primary osteoarthritis of left knee 8 mL Other Once 04/14/2023 Active Active Problems Problem Noted Date Diagnosed Date Primary osteoarthritis of left knee 04/22/2023 Class 3 severe obesity due t o excess calories without serious comorbidity with body mass index (BMI) of 60.0 to 69.9 in adult ([facility]) 10/01/2022 Lymphedema 09/16/2022 Primary osteoarthritis of right knee 09/06/2022 Lymphedema of right lower extremity 09/06/2022 Lipedema 09/06/2022 Respiratory failure ([facility]) 02/29/2020 Elevated CO2 level 11/23/2019 Resolved Problems Problem Noted Date Diagnosed Date Resolved Date Gastroenteritis 11/21/2019 11/23/2019 Lactic acid acidosis 11/21/2019 020 Positive D dimer 11/21/2019 11/23/2019 Dizziness of unknown cause 11/21/2019 0 11/23/2019 Diarrhea 11/21/2019 11/23/2019 Vomiting 11/21/2019 11/23/2019 EKG, abnormal 11/21/2019 11/23/2019 Overview (11/21/2019): Left axis deviation reported as unchange from a prior ekg. Possible normal variant. Encounters Date Type Department Care Team Description 06/07/2024 9:45 AM PET CARE ATTENDANT Office Visit [address] [address] Mariola Mo, DRYWALL TAPER-BC Injection (BILATERAL #2 Euflexxa) 06/07/2024 Travel 05/28/2024 9:45 AM PET CARE ATTENDANT Office Visit [address] [address] Mariola Mo DRYWALL TAPER-BC Injection; Knee Pain (BILATERAL) 05/28/2024 Travel 05/14/2024 10:00 AM PET CARE ATTENDANT Office Visit [address] [address] Mariola Mo, DRYWALL TAPER-BC Knee Pain (BILATERAL) 05/14/2024 Travel from Last 3 Months Family History Medical History Relation Comments Diabetes Brother Heart Disease Father Heart Disease Mother Kidney Disease Mother Relation Status Comments Brother Father Maternal Grandfather Maternal Grandmother Mother Alive Paternal Grandfather Paternal Grandmother Social History Tobacco Use Types Packs/Day Years [...] on file Legal Sex Female 5:52 PM PET CARE ATTENDANT Gender Identity Not on file Sexual Orientation Not on file Last Filed Vital Signs Vital Sign Reading Time Taken Comments Blood Pressure 138/82 12/10/2022 8:59 AM CDT Pulse 69 12/10/2022 8:59 AM CDT Temperature 36.6 ??C (97.8 ??F) 10/05/2022 4:43 PM CD T Respiratory Rate 16 12/10/2022 8:59 AM CDT Oxygen Saturation 97% 10/05/2022 4:43 PM CDT Inhaled Oxygen Concentration - - Weight 176.9 kg (390 lb) 06/07/2024 9:37 AM PET CARE ATTENDANT Height 165.1 cm (5' 5 ) 06/07/2024 9:37 AM PET CARE ATTENDANT Body Mass Index 64.9 06/07/2024 9:37 AM PET CARE ATTENDANT Plan of Treatment Health Maintenance Due Date Last Done Comments Colorectal Cancer Screening Colonoscopy (10 Years) 1965 Annual Physical 1968 Hepatitis C 1983 DTaP, Tdap and Td Vaccines ( 1 - Tdap) 1984 Mammogram Screening 2005 Zoster Vaccines (1 of 2) 2015 COVID-19 Vaccine (2023-2 5 season) 2024 Influenza Adult (#1) 2024 Meningococcal Vaccine Aged Out No yaa iris eligible based on patient's age to complete this topic Pneumococcal Vaccine: Pediat rics (0 to 5 Years) and At-Risk Patients (6 to 64 Years) Aged Out No longer eligible b ased on patient's age to complete this topic RSV Immunizations Under 20 Months Aged Out No longer eligible based on patient's age to complete this topic Insurance [facility] Advance Directives * Full Code (Latest Code Status on File) Date Activated Date Inactivated Comments 03/03/2020 10:14 AM 03/12/2020 4:48 PM * Full Code Date Activated Date Inactivated Comments 02/29/2020 4:28 PM 03/03/2020 10:14 AM * Full Code Date Activated Date Inactivated Comments 11/21/2019 11:56 AM 11/23/2019 4:51 PM Care Teams Rehabilitation Therapist Relationship Specialty Start Date End Date Tushar West MD [address] [place] [address] PCP - General INTERNAL MEDICINE 11/21/19 Nas Arndt MD [address] [place] [address] Consulting Physician INTERNAL MEDICINE 09/13/22 Pascual Mccullough MD [address] [place] [address] ORTHOPAEDIC SURGERY 09/13/22
--- OUTSIDE RECORDS SUMMARY | 2024-07-15 23:56 | XMS_ITS | Encounter Summary ---
Author Organization [facility] Address Critical access hospital6 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
--- OUTSIDE RECORDS SUMMARY | 2024-07-15 23:56 | XMS_ITS | Encounter Summary ---
Author Organization [facility] Address [facility] 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 No / Unsure 09/25/2022 3:02 PM CDT documented as of this encounter [...] on filedocumented in this encounter Care Teams Pet Care Worker Relationship Specialty Start Date End Date Tushar West MD [address] [place] [address] PCP - General INTERNAL MEDICINE 11/21/19 Nas Arndt MD [address] [place] [address] Consulting Physician INTERNAL MEDICINE 09/13/22 Pascual Mccullough MD [address] [place] [address] ORTHOPAEDIC SURGERY 09/13/22 documented as of this encounter
--- OUTSIDE RECORDS SUMMARY | 2024-07-15 23:56 | XMS_ITS | Encounter Summary ---
Author Organization [facility] Address [facility]6 [facility] 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 No / Unsure 09/30/2022 2:25 PM CDT documented as of this encounter [...] on filedocumented in this encounter Care Teams Rn Clinical Appeals Relationship Specialty Start Date End Date Tushar West MD [address] [place] [address] PCP - General INTERNAL MEDICINE 11/21/19 Nas Arndt MD [address] [place] [address] Consulting Physician INTERNAL MEDICINE 09/13/22 Pascual Mccullough MD [address] [place] [address] ORTHOPAEDIC SURGERY 09/13/22 documented as of this encounter
--- OUTSIDE RECORDS SUMMARY | 2024-07-15 23:56 | XMS_ITS | Encounter Summary ---
Author Organization [facility] Address [facility]6 [facility] [place] [address] [place] [address] Care Team Providers Care Statistical Secretary Name Role Phone Tushar West MD Primary Care Provider [phone] Nas Arndt MD Unavailable Pascual Mccullough MD Unavailable Reason for Visit * Reason Comments Edema * Physical Therapy (Routine) - Closed Specialty Diagnoses / Procedures Referred By Contrenato schwartz Referred To Contact [facility] Physical Therapy Diagnoses Lipedema Lymphedema of left lower extremity Procedures OFFICE/OUTPT VISIT,NEW,LEVL III OFFICE/OUTPT VISIT,NEW,LEVL IV OFFICE/OUTPT VISIT,NEW,LEVL V OFFICE/OUTPT VISIT,EST,LEVL III OFFICE/OUTPT VISIT,EST,LEVL IV OFFICE/OUTPT VISIT,EST,LEVL V Mariola Mo, TRAINING DEVELOPMENT MANAGER-BC [address] [facility] [place] [address] Phone: tel: fax: [facility] [address] [place] [address] Phone: tel: fax: Referral ID Status Reason Start Date Expiration Date Visits Re quested Visits Authorized [id number] Closed 09/06/2022 10/06/2023 30 30 Encounter Details Date Type Department Care Team (Late st Contact Info) Description 09/26/2022 3:30 PM CDT - 09/26/2022 11:59 PM CDT Hospital Encounter [facility] [address] [place] [address] Ania Awan, PT [address] [place] [address] Mariola Mo, TRAINING DEVELOPMENT MANAGER- [address] [facility] [place] [address] Edema Discharge Disposition: Home or Self Care [...] on file Legal Sex Female 5: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 No / Unsure 09/26/2022 3:32 PM CDT documented as of this encounter [...] by mouth 3 (three) times daily. 08/31/2022 escitalopram (LEXAPRO) 10 MG tablet Take 1 tablet (10 mg total) by mouth daily. 08/31/2022 gabapentin 300 MG capsule Take 1 capsule (300 mg total) by mouth 2 (two) times a day. losartan-hydroCHLORO thiazide (HYZAAR) 100-12.5 MG tablet Take 1 tablet by mouth daily. 08/31/2022 atenolol (TENORMIN) 50 MG tablet Take 1 tablet (50 mg total) by mouth nightly at bedtime. at bedtime. 08/05/2022 3 carvedilol (COREG) 12.5 MG tablet Take 12.5 mg by mouth 2 (two) times daily with meals. 08/31/2022 3 diclofenac EC (VOLTAREN) 75 MG tabletIndications:Pr imary osteoarthritis of right knee Take 1 tablet (75 mg total) by mouth 2 (two) times daily. 60 tablet 2 09/06/2022 3 escitalopram 5 MG tablet Take 5 mg by mouth daily. 3 LORazepam 0.5 MG tablet Take 1-2 tablets (0.5-1 mg total) by mouth nightly as needed for Anxiety. 4 losartan 100 MG tablet Take 100 mg by mouth daily. 3 oxybutynin 5 MG tablet Take 2 tablets (10 mg total) by mouth 2 (two) times daily. 4 documented as of this encounter Progress Notes * Ania Awan, PT - 09/26/2022 3:30 PM CDT .. PHYSICAL THERAPY TREATMENT NOTE Time In: 1531 Time Out: 163 Total Time: 60 minutes Name: Olga Kong : 1965 Past Medical History: Diagnosis Date ??? Allergies ??? Anxiety ??? Depression ??? Hypertension ??? Lipedema ??? Lymphedema ??? Neuropathy ??? Obesity ??? Sleep apnea ??? Urinary bladder incontinence Past Surgical History: Procedure Laterality Date ??? SECTION, CLASSIC ??? HYSTERECTOMY Subjective: Diagnosis: LLE Lymphedema/ B Lipidemia Referring Physician: VILMA Su- Onset Date: Chronic-Childhood Treatment Day: 5 Total Approved Visits: 20 Therapy Plan of Care: 5x/week with decreasing frequency as patient becomes more independent with self-MLD and applying SS bandaging. Return to MD: As needed Subjective Note: Pt reports her bandaging stayed on until about 3:00 am. She woke up and they had fallen down. Pt does feel her edema has improved. She has noticed Location of Pain: BLEs Pre-treatment Pain: 0/10 Post-treatment Pain: 0/10 Restriction/Precaution: No short neck sequence unable to tolerate prone Objective: Treatment Performed: Therapeutic Exercise - 87735 Minutes Performed: Intervention: Manual Therapy - 51302 Minutes Performed: 60 minutes Intervention: -Opened left inguinal lymph nodes, followed by MLD down L LE in recumbent -SS multi-layered wrap applied to LLE following MLD -kathya H-rosidal soft H-6in artiflex H-2 kidney foam -8cm, 10cm, 12cm SS bandage Neuromuscular Reeducation - 24439 Minutes Performed: Intervention: Therapeutic Activities - 41132 Minutes Performed: 0 -Pt educated on a Jobst Farrow Wrap Classic to be worn instead of SS multi layered bandaging as it fell down last night. Will see how bandage stays up after this session. Modalities Minutes Performed: Intervention: Total Treatment Time: 60 minutes Education Performed: Pt instructed to keep SS multi layered bandage on until two hours prior to next visit unless it became too tight or if patient wasn't able to tolerate it. ASSESSMENT: Note: Pt presents with improving edema this date. There is noticeable improvement in her tendernesswith palpation in her lower leg. PT again used only SS bandaging during wrapping at end of treatment. PLAN: Plan for next visit: MLD with [...] lymphedema documented in this encounter Care Teams Statistical Secretary Relationship Specialty Start Date End Date Tushar West MD [address] [place] [phone] PCP - General INTERNAL MEDICINE 11/21/19 Nas Arndt MD [address] [place] [address] Consulting Physician INTERNAL MEDICINE 09/13/22 Pascual Mccullough MD [address] [facility] [address] ORTHOPAEDIC SURGERY 09/13/22 documented as of this encounter
--- OUTSIDE RECORDS SUMMARY | 2024-07-15 23:56 | XMS_ITS | Encounter Summary ---
Author Organization [facility] Address [facility]6 [facility] 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 No / Unsure 10/05/2022 4:48 PM CDT documented as of this encounter [...] on filedocumented in this encounter Care Teams Ocean Export Agent Relationship Specialty Start Date End Date Tushar West MD [address] [place] [address] PCP - General INTERNAL MEDICINE 11/21/19 Nas Arndt MD [address] [place] [address] Consulting Physician INTERNAL MEDICINE 09/13/22 Pascual Mccullough MD [address] [place] [address] ORTHOPAEDIC SURGERY 09/13/22 documented as of this encounter
--- OUTSIDE RECORDS SUMMARY | 2024-07-15 23:56 | XMS_ITS | Encounter Summary ---
Author Organization [facility] Address [facility]6 [place] [address] [place] [address] Care Team Providers Care Speech Teacher Name Role Phone Tushar West MD Primary Care Provider [phone] Nas Arndt MD Unavailable Pascual Mccullough MD Unavailable [phone] Reason for Visit * Reason Onset Date Comments Question 08/27/2023 Encounter Details Date Type Department Care Team (Late st Contact Info) Description 08/27/2023 Telephone [facility] [address] [address] Mariola Mo, [facility] [address] [facility] [place] [id number] Question Social History Tobacco Use Types Packs/Day Years [...] on file 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 Answer Date of Assessment Author Status No 11/21/2019 9:39 AM CDCorrina Posada RN Active documented as of this encounter Mental Status * Because of a physical, mental, or emotional condition, do you have serious difficulty concentrating, remembering, or making decisions? 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 ING MACHINE OPERATOR * Amy Segal RN - 08/27/2023 8:36 AM CST Rosmery's Brendan called in wanting to talk to Mariola. He said Rosmery's insurance has and will not be active again until October. In the meantime she is in pretty bad shape without getting theshots Mariola typically gives her. They were wanting to know if there is anything else that they could do in the meantime or another place they could go to try and get some shots that does not cost asmuch. The said that Mariola and Rosmery have similar leg issues and Mariola has spent a lot of time talking to her about it. Rosmery -[phone] Brendan -[phone] ING MACHINE OPERATOR documented in this encounter Plan of Treatment Not on file documented as of this encounter Visit Diagnoses Not on filedocumented in this encounter Care Teams Speech Teacher Relationship Specialty Start Date End Date Tushar West MD [address] [place] [address] PCP - General INTERNAL MEDICINE 11/21/19 Nas Arndt MD [address] [place] [address] Consulting Physician INTERNAL MEDICINE 09/13/22 Pascual Mccullough MD [address] [facility] [place] [address] ORTHOPAEDIC SURGERY 09/13/22 documented as of this encounter
--- OUTSIDE RECORDS SUMMARY | 2024-07-15 23:56 | XMS_ITS | Encounter Summary ---
Author Organization [facility] Address [facility] [place] [address] [place] [address] Care Team Providers Care Mold Sprayer Name Role Phone Tushar Guan MD Primary Care Provider [phone] Nas Arndt MD Unavailable Pascual Mccullough MD Unavailable [phone] Reason for Visit * Reason Comments Follow Up Lipedema Encounter Details Date Type Department Care Team (Latest Contact Info) Description 12/10/2022 9:00 AM CDT Office Visit [facility] [place] [address] Nas Arndt MD [address] 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 No / Unsure 12/10/2022 8:50 AM CDT documented as of this encounter Last Filed Vital Signs Vital Sign Reading Time Taken Comments Blood Pressure 138/82 12/10/2022 8:59 AM CDT Pulse 69 12/10/2022 8:59 AM CDT Temperature - - Respiratory Rate 16 12/10/2022 8:59 AM CDT Oxygen Saturation - - Inhaled Oxygen Concentration - - Weight 177.3 kg (390 lb 12.8 oz) 12/10/2022 8:59 AM CDT Height 162.6 cm (5' 4 ) 12/10/2022 8:59 AM CDT Body Mass Index 67.08 12/10/2022 8:59 AM CDT documented in this encounter Functional [...] Date Author Status No 11/21/2019 9:39 AM CDT Corrina Gordon RN Active documented in this encounter Progress Notes * Nas Arndt MD - 12/10/2022 9:00 AM CDT Reason for Visit: Follow Up (Lipedema ) History of Present Illness: 57-year-old female whose cardiovascular history consists of: 1. Bilateral lipo-lymphedema. 2. Morbid obesity. 3. Hypertension. 4. Advanced osteoarthritis. Patient is doing better though still not wearing the right stockings as she cannot afford $400 Jobst Elvarex. Lymphedema pump denied by insurance. Has lost approximately 20 pounds since last visit. The patient tells me that she has been having swelling in her legs for many years, in fact, since her teenager years. She tells me that she used to weigh 150 pounds, but had big legs at that time also. She would not wear shorts or skirts due to embarrassment of having big legs. She recently startedgoing to physical therapy and has started receiving it seems lymphedema treatment and her legs are getting wrapped and has come 2 cm down on left leg. She has had kind of tender legs for many years. She has unfortunately gained weight for a long time. She also tells me that she has family members who especially involving bigger legs since their younger years. She does not have any large varicose veins. ASSESSMENT AND PLAN: 1. Bilateral lipo-lymphedema. I suspect the patient has lipedema and early progression to lymphedema. I discussed with the patient that the main issue with lipedema treatments are somewhat limited further exacerbated by the effects of obesity. Discussed with her regarding swelling and water-based aerobic exercises, cycling, but I was upfront with her regarding lipedema. Continue daily stockings and I discussed with her that she may use 20-30 mmHg compression stockings. 2. Morbid obesity. Patient has lost close to 20 pounds since last visit and I congratulated her that. She is also on some Voltaren and Diclofenac, which could be also causing issues. 3. Hypertension. Blood pressure is well controlled. 4. Advanced osteoarthritis. Weight loss would be significantly helpful. Still weighs 390 pounds. Follow up in 3 months. Medications: Current Outpatient Medications: COMPRESSION STOCKINGS, 20-30 MMHG Compression stockings, knee-high, open or closed toe Dx: I83.893,Disp: 2 Container, Rfl: 5 albuterol sulfate HFA 108 (90 Base) MCG/ACT inhaler, inhale 1 to 2 puffs by mouth every 4 hours as needed, Disp: , Rfl: aspirin 81 MG chewable tablet, Chew 81 mg by mouth daily., Disp: , Rfl: busPIRone (BUSPAR) 10 MG tablet, Take 10 mg by mouth 3 (three) times daily., Disp: , Rfl: zeeecuy-barozpsgl-hxhf 333-133-5 MG Tab, Take 1 tablet by mouth daily., Disp: , Rfl: carvedilol (COREG) 25 MG tablet, , Disp: , Rfl: diclofenac EC (VOLTAREN) 75 MG tablet, Take 1 tablet (75 mg total) by mouth 2 (two) times daily., Disp: 60 tablet, Rfl: 2 escitalopram (LEXAPRO) 10 MG tablet, Take 1 tablet (10 mg total) by mouth daily., Disp: , Rfl: gabapentin 300 MG capsule, Take 1 capsule (300 mg total) by mouth 2 (two) times a day., Disp: , Rfl: LORazepam 0.5 MG tablet, Take 0.5-1 mg by mouth nightly as needed for Anxiety. , Disp: , Rfl: losartan-hydroCHLOROthiazide (HYZAAR) 100-12.5 MG tablet, Take 1 tablet by mouth daily., Disp: , Rfl: omega-3 fatty acid (FISH OIL) 500 MG capsule, Take 1 capsule (500 mg total) by mouth daily., Disp: , Rfl: oxybutynin 5 MG tablet, Take 10 mg by mouth 2 (two) times daily., Disp: , Rfl: vitamin D2, ergocalciferol, (DRISDOL) 1.25 mg capsule, Take 1 capsule (1.25 mg total) by mouth., Disp: , Rfl: Review of patient's allergies indicates: No Known Allergies Past Medical History: Diagnosis Date Allergies Anxiety Depression Hypertension Lipedema Lymphedema Neuropathy Obesity Sleep apnea Urinary bladder incontinence Past Surgical History: Procedure Laterality Date SECTION, CLASSIC HYSTERECTOMY Social History Tobacco Use Smoking status: Never Smokeless tobacco: Never Substance Use Topics Alcohol use: Never Drug use: Never Family History Problem Relation Name Age of Onset Heart Disease Mother Kidney Disease Mother Heart Disease Father Diabetes Brother Family Status Relation Name Status Mother Alive Father Brother (Not Specified) MGM MGF PGM PGF Review of Systems Constitutional: Negative for recent unintentional weight gain, recent unintentional weight loss andnew or significant fatigue. HENT: Negative for new or significant hearing loss. Eyes: Negative for blurred vision and double vision. Respiratory: Negative for cough, new or significant shortness of breath and snoring. Cardiovascular: See HPI. Positive for leg swelling. Gastrointestinal: Negative for blood in stool and melena. Genitourinary: Negative for dysuria. Musculoskeletal: Negative for myalgias and new or worsening joint stiffness/pain. Skin: Negative for rash. Neurological: Positive for dizziness. Negative for tingling/numbness and focal weakness. Endo/Heme/Allergies: Negative for new or significant bruising/bleeding and polydipsia. Psychiatric/Behavioral: Negative for depression and new or significant memory loss. Vitals: 12/10/22 0859 BP: 138/82 BP Location: Right arm Pulse: 69 Weight: (!) 177.3 kg (390 lb 12.8 oz) Height: 5' 4 (1.626 m) Body mass index is 67.08 kg/m??. Cardiac Exam Rate/Rhythm: Normal rate and regular rhythm. PMI: PMI is not displaced. Pulses: Normal pulses. Femoral pulses are 2+ on the right side and 2+ on the left side. Heart Sounds: Normal heart sounds. Normal S1 sounds. Normal S2 sounds. No gallop present. No S3. NoS4. Murmurs: Physical Exam Constitutional: No distress. Healthy Appearance. HENT: Oropharynx clear. Eyes: Pupils equal, round, and reactive to light. Conjunctivae normal. Neck: Neck supple. No JVD. Abdomen: Abdomen soft. Bowel sounds normal. No tenderness. No mass. No hepatomegaly. No splenomegaly. Abdominal aorta not palpably enlarged. No abdominal bruit present. Pulmonary: Effort normal. Breath sounds normal. Skin: No rash. No cyanosis. No clubbing. No xanthoma. Musculoskeletal: No kyphosis. Normal ROM. Neurological: Alert. Oriented x 3. Appropriate mood and affect. Normal motor skills. Normal gait. Comments: Bilateral lower extremity 2-3+ nonpitting edema with fibrofatty feel to both legs with somewhat hard to feel to bilateral calves. Swelling stops at ankle and some amount of swelling noted at foot with mild dorsal hump though negative Stemmer sign. Mild tenderness on palpation of fibrofatty tissue in legs. No large varicose veins noted. Diagnoses/Impression: 1. Lipedema COMPRESSION STOCKINGS 2. Lymphedema Referring Provider: No ref. provider found PCP: TUSHAR GUAN MD documented in this encounter Plan of Treatment Not on file documented as of this encounter Visit Diagnoses Diagnosis Lipedema- Primary Lymphedema Other lymphedema documented in this encounter Care Teams Mold Sprayer Relationship Specialty Start Date End Date Tushar Guan MD [address] [place] [id number] PCP - General INTERNAL MEDICINE 11/21/19 Nas Arndt MD [address] [place] [address] Consulting Physician INTERNAL MEDICINE 09/13/22 Pascual Mccullough MD [address] [facility] [place] [address] ORTHOPAEDIC SURGERY 09/13/22 documented as of this encounter
--- OUTSIDE RECORDS SUMMARY | 2024-07-15 23:56 | XMS_ITS | Encounter Summary ---
Author Organization [facility] Address Counts include 234 beds at the [facility] [place] [address] [place] [address] Care Team Providers Care Coding And Reimbursement Specialist Name Role Phone Cristy Guan MD Primary Care Provider [phone] Nas Arndt MD Unavailable Pascual Mccullough MD Unavailable [phone] Reason for Visit * Reason Onset Date Comments Called To Cancel Office Appt. 08/13/2023 Encounter Details Date Type Department Care Team (Late st Contact Info) Description 08/13/2023 Telephone [facility] [address] [place] [address] Nas Arndt MD [address] [place], [place] [address] Called To Cancel Office Appt. 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 APPT PROV/DATE/TIME: Dr. Hair Leach - 12/02/2023 at 1100 TESTING NEEDED/SCHEDULED: n/a STAFF MSG SENT: no COVID+TEST/EXPOSURE IN LAST 14 DAYS: n/a RECORDS NEEDED: no MYCHART OFFERED: active LETTER SENT: yes CARE TEAM: notified Patient expresses understanding, questions answered. * Shayna Carpenter - 08/13/2023 9:54 AM CST ----- Message from Nik Weaver RN sent at 08/04/2023 7:03 AM CURTAIN DRIER ----- Regarding: FW: Appointment canceled Contact: ----- Message ----- From: Olga Kong Sent: 08/02/2023 10:24 AM CURTAIN DRIER To: [facility] Subject: Appointment canceled Appointment canceled for Olga Pan Luann ([id number]) Visit Type: FOLLOW UP Date Time Length Provider Department 08/05/2023 10:[address] Nas Arndt MD [facility] Reason for Cancellation: Patient Cancelled Insurance Reasons Patient Comments: I have no insurance until October 05 AIN DRIER documented in this encounter Plan of Treatment Not on file documented as of this encounter Visit Diagnoses Not on filedocumented in this encounter Care Teams Coding And Reimbursement Specialist Relationship Specialty Start Date End Date Cristy Guan MD [address] [place] [phone] PCP - General INTERNAL MEDICINE 11/21/19 Nas Arndt MD [address] [place] [address] Consulting Physician INTERNAL MEDICINE 09/13/22 Pascual Mccullough MD [address] [facility] [place] [address] ORTHOPAEDIC SURGERY 09/13/22 documented as of this encounter
--- OUTSIDE RECORDS SUMMARY | 2024-07-15 23:56 | XMS_ITS | Encounter Summary ---
Author Organization [facility] Address [facility] 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
--- OUTSIDE RECORDS SUMMARY | 2024-07-15 23:56 | XMS_ITS | Encounter Summary ---
Author Organization [facility] Address [facility], [id number] [facility] 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
--- OUTSIDE RECORDS SUMMARY | 2024-07-15 23:56 | XMS_ITS | Encounter Summary ---
Author Organization [facility] Address [facility] 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
--- OUTSIDE RECORDS SUMMARY | 2024-07-15 23:56 | XMS_ITS | Encounter Summary ---
Author Organization [facility] Address [facility]6 [facility] [place] [address] [place] [address] Care Team Providers Care Pit Steward Name Role Phone Tushar West MD Primary Care Provider [phone] Nas Arndt MD Unavailable Pascual Mccullough MD Unavailable [phone] Reason for Visit * Reason Comments Dental Pain Encounter Details Date Type Department Care Team (Late st Contact Info) Description 10/05/2022 4:35 PM CDT - 10/05/2022 5:28 PM T Emergency [facility] [address] [place] [address] [place] [address] Johanna Wolf MD [address] [place] [address] Dental Pain Discharge Disposition: Home or Self Care (Routine [...] on file 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 No / Unsure 10/05/2022 4:48 PM CDT documented as of this encounter Last Filed Vital Signs Vital Sign Reading Time Taken Comments Blood Pressure 159/66 10/05/2022 4:43 PM CDT Pulse 80 10/05/2022 4:43 PM CDT Temperature 36.6 ??C (97.8 ??F) 10/05/2022 4:43 PM CD T Respiratory Rate 16 10/05/2022 4:43 PM CDT Oxygen Saturation 97% 10/05/2022 4:43 PM CDT Inhaled Oxygen Concentration - - Weight 183.5 kg (404 lb 8.7 oz) 10/05/2022 4:43 PM CDT Height 162.6 cm (5' 4 ) 10/05/2022 4:43 PM CDT Body Mass Index 69.44 10/05/2022 4:43 PM CDT documented in this encounter Functional Status [...] Gordon RN Active documented in this encounter Discharge Instructions * Discharge Instructions* Johanna Wolf MD - 10/05/2022 5:12 PM CDT Take antibiotics as prescribed. Take tramadol for severe pain. Continue your routine medications. Follow-up with a dentist soon as within 1-2 days. * Attachments The following attachments cannot be sent through Care Everywhere. * Tooth Abscess ED ([place]imbabwean) documented in this encounter Medications at Time of Discharge albuterol sulfate HFA 108 (90 Base) MCG/ACT inhaler inhale 1 to 2 puffs by mouth every 4 hours as needed 08/27/2022 aspirin 81 MG chewable tablet Chew 1 tablet (81 mg total) by mouth daily. busPIRone (BUSPAR) 10 MG tablet Take 1 tablet (10 mg total) by mouth 3 (three) times daily. 08/31/2022 akrrnuv-wxxborggp-zv nc 333-133-5 MG Tab Take 1 tablet [...] 10/05/2022 3 documented as of this encounter ED Notes * Johanna Wolf MD - 10/05/2022 5:02 PM CDT Chief Complaint Chief Complaint Patient presents with ??? Dental Pain History of Present Illness Patient is a 57 yo female who presents with complaints of pain and swelling to the right lower jaw which began today. Her last visit to the dentist was about a year ago. Since then she has developed a broken molar tooth in the right lower jaw area. Medical History ALLERGIES: No Known Allergies MEDICATIONS: Prior to Admission medications Medication Sig Start Date End Date Taking? Authorizing Provider amoxicillin-clavulanate (AUGMENTIN) 875-125 MG tablet Take 1 tablet (875 mg total) by mouth 2 (two)times daily for 10 days. 10/05/22 10/15/22 Yes Johanna Heller MD traMADol (ULTRAM) 50 MG tablet Take 1 tablet (50 mg total) by mouth every 6 (six) hours as needed for Pain. Indications: Acute Pain < 3 Day Supply 10/05/22 Yes Johanna Wolf MD albuterol sulfate HFA 108 (90 Base) MCG/ACT inhaler inhale 1 to 2 puffs by mouth every 4 hours as needed 08/27/22 GENERICPROVIDER, DEFAULT HISTORY aspirin 81 MG chewable tablet Chew 81 mg by mouth daily. Doc [facility] busPIRone (BUSPAR) 10 MG tablet Take 10 mg by mouth 3 (three) times daily. 08/31/22 GENERICPROVIDER,DEFAULT HISTORY cvjozks-ndxxbziic-vwqd 333-133-5 MG Tab Take 1 tablet by mouth daily. GENERICPROVIDER, DEFAULT HISTORY carvedilol (COREG) 12.5 MG tablet Take 12.5 mg by mouth 2 (two) times daily with meals. 08/31/22 GENERICPROVIDER, DEFAULT HISTORY diclofenac EC (VOLTAREN) 75 MG tablet Take 1 tablet (75 mg total) by mouth 2 (two) times daily. 09/06/22 Mariola Mo, INDOOR LANDSCAPE ARCHITECT- escitalopram (LEXAPRO) 10 MG tablet Take 1 tablet (10 mg total) by mouth daily. 08/31/22 GENERICPROVIDER, DEFAULT HISTORY gabapentin 300 MG capsule Take 1 capsule (300 mg total) by mouth 2 (two) times a day. Doc [facility] LORazepam 0.5 MG tablet Take 0.5-1 mg by mouth nightly as needed for Anxiety. Doc [facility] losartan-hydroCHLOROthiazide (HYZAAR) 100-12.5 MG tablet Take 1 tablet by mouth daily. 08/31/22 GENERICPROVIDER, DEFAULT HISTORY omega-3 fatty acid (FISH OIL) 500 MG capsule Take 1 capsule (500 mg total) by mouth daily. GENERICPROVIDER, DEFAULT HISTORY oxybutynin 5 MG tablet Take 10 mg by mouth 2 (two) times daily. Doc [facility] vitamin D2, ergocalciferol, (DRISDOL) 1.25 mg capsule Take 1 capsule (1.25 mg total) by mouth. GENERICPROVIDER, DEFAULT HISTORY PAST MEDICAL HISTORY: Past Medical History: Diagnosis Date ??? Allergies ??? Anxiety ??? Depression ??? Hypertension ??? Lipedema ??? Lymphedema ??? Neuropathy ??? Obesity ??? Sleep apnea ??? Urinary bladder incontinence PAST SURGICAL HISTORY: Past Surgical History: Procedure Laterality Date ??? SECTION, CLASSIC ??? HYSTERECTOMY FAMILY HISTORY: Family History Problem Relation Name Age of Onset ??? Heart Disease Mother ??? Kidney Disease Mother ??? Heart Disease Father ??? Diabetes Brother SOCIAL HISTORY: Social History Tobacco Use ??? Smoking status: Never ??? Smokeless tobacco: Never Substance Use Topics ??? Alcohol use: Never ??? Drug use: Never Review of Systems Review of Systems HENT: Positive for dental problem. All other systems reviewed and are negative. Physical Exam Filed Vitals: 10/05/22 1643 BP: (!) 159/66 Pulse: 80 Resp: 16 Temp: 97.8 ??F (36.6 ??C) SpO2: 97% Weight: (!) 183.5 kg (404 lb 8.7 oz) Height: 5' 4 (1.626 m) Physical Exam Vitals and nursing note reviewed. Constitutional: Appearance: Normal appearance. HENT: Head: Normocephalic. Mouth/Throat: Mouth: Mucous membranes are moist. Comments: Large cavitation of molar in the right lower jaw. Eyes: Conjunctiva/sclera: Conjunctivae normal. Cardiovascular: Rate and Rhythm: Normal rate. Pulmonary: Effort: Pulmonary effort is normal. Musculoskeletal: General: Normal range of motion. Cervical back: Normal range of motion. Neurological: General: No focal deficit present. Mental Status: She is alert. Psychiatric: Mood and Affect: Mood normal. Diagnostic Studies / Procedures ELECTROCARDIOGRAMS: No results found for this visit on 10/05/22. LABORATORY STUDIES: No results found for this visit on 10/05/22. IMAGING STUDIES No orders to display ED Course / Medical Decision Making Patient will be commenced on antibiotic therapy and strongly encouraged to follow-up with a dentist. MDM Clinical Impression Dental abscess (Primary) Disposition: Discharge Johanna Wolf MD 10/10/22 1304 * Nelida Diaz RN - 10/05/2022 4:42 PM CDT Pt arrives per pov from home. Pt c/o r sided mouth pain and swelling x 2 days. documented in this encounter Plan of Treatment Not on file documented as of this encounter Visit Diagnoses Diagnosis Dental abscess- Primary Periapical abscess without sinus documented in this encounter Administered Medications Inactive Administered Medications - up to 3 most recent administrations Medication Order MAR Action Action Date Dose Rate Site amoxicillin-clavulanate (AUGMENTIN) 875-125 MG tablet 875 mg 875 mg, Oral, Once, 1 dose, On 10/05/22 at 1715 Given 10/05/2022 5:24 PM CDT 875 mg HYDROmorphone (DILAUDID) injection 1 mg 1 mg, Intramuscular, Once, 1 dose, On 10/05/22 at 1715, Administer slowly over at least 2-3 minutes. Given 10/05/2022 5:23 PM CDT 1 mg Left Deltoid documented in this encounter Active and Recently Administered Medications Times are shown in CDT. Scheduled Medication Order 10/03/2022 10/04/2022 10/05/2022 amoxicillin-clavulanate (AUGMENTIN) 875-125 MG tablet 875 mg (COMPLETED) 875 mg, Oral, Once, 1 dose, On 10/05/22 at 1715 1724 (Given - Provid er: Yoselin Harrington RN) HYDROmorphone (DILAUDID) injection 1 mg (COMPLETED) 1 mg, Intramuscular, Once, 1 dose, On 10/05/22 at 1715, Administer slowly over at least 2-3 minutes. 1723 (Given - Provid er: Yoselin Harrington RN) documented in this encounter Care Teams Pit Steward Relationship Specialty Start Date End Date Tushar West MD [address] [place] [phone] PCP - General INTERNAL MEDICINE 11/21/19 Nas Arndt MD [address] [place] [address] Consulting Physician INTERNAL MEDICINE 09/13/22 Pascual Mccullough MD [facility] [place] [address] ORTHOPAEDIC SURGERY 09/13/22 documented as of this encounter
--- OUTSIDE RECORDS SUMMARY | 2024-07-15 23:56 | XMS_ITS | Encounter Summary ---
Author Organization [facility] Address [facility] [place] [address] [place] [address] Care Team Providers Care Mechanical Maintenance Engineer Name Role Phone Tushar West MD Primary Care Provider [phone] Nas Arndt MD Unavailable Pascual Mccullough MD Unavailable [phone] Reason for Visit * Reason Comments Edema * Physical Therapy (Routine) - Closed Specialty Diagnoses / Procedures Referred By Contrenato schwartz Referred To Contact [facility] Physical Therapy Diagnoses Lipedema Lymphedema of left lower extremity Procedures OFFICE/OUTPT VISIT,NEW,LEVL III OFFICE/OUTPT VISIT,NEW,LEVL IV OFFICE/OUTPT VISIT,NEW,LEVL V OFFICE/OUTPT VISIT,EST,LEVL III OFFICE/OUTPT VISIT,EST,LEVL IV OFFICE/OUTPT VISIT,EST,LEVL V Mariola Mo, FLOATING DERRICK OPERATOR-BC [address] [facility] [place] [address] Phone: tel: fax: [facility] [address] [place] [address] Phone: tel: fax: Referral ID Status Reason Start Date Expiration Date Visits Re quested Visits Authorized [id number] Closed 09/06/2022 10/06/2023 30 30 Encounter Details Date Type Department Care Team (Late st Contact Info) Description 10/30/2022 3:54 PM CDT - 10/30/2022 11:59 PM CDT Hospital Encounter [facility] [address] [place] [address] Ania Awan, PT [address] [place] [address] Mariola Mo, FLOATING DERRICK OPERATOR- [address] [place] [address] Edema Discharge Disposition: Home or Self Care [...] on file 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 No / Unsure 10/30/2022 3:53 PM CDT documented as of this encounter [...] by mouth 3 (three) times daily. 08/31/2022 bscfiqs-pukkjwfin-la nc 333-133-5 MG Tab Take 1 tablet [...] daily. 4 traMADol (ULTRAM) 50 MG tabletIndications:Ac tul[place] Pain < 3 Day Supply Take 1 tablet (50 mg total) by mouth every 6 (six) hours as needed for Pain. Indications: Acute Pain < 3 Day Supply 10 tablet 10/05/2022 3 documented as of this encounter Progress Notes * Ania Awan, PT - 10/30/2022 4:00 PM CDT PHYSICAL THERAPY TREATMENT NOTE Time In: 1500 Time Out: 1530 Total Time: 30 minutes Name: Olga Kong : 1965 Past Medical History: Diagnosis Date Allergies Anxiety Depression Hypertension Lipedema Lymphedema Neuropathy Obesity Sleep apnea Urinary bladder incontinence Past Surgical History: Procedure Laterality Date SECTION, CLASSIC HYSTERECTOMY Subjective: Diagnosis:Secondary LLE Lymphedema/ B Lipidemia Referring Physician: VILMA Su-BC Onset Date: Chronic-Childhood Treatment Day: 12 Total Approved Visits: 20 Therapy Plan of Care: 5x/week with decreasing frequency as patient becomes more independent with self-MLD and applying SS bandaging. Return to MD: As needed Subjective Note: Pt reports overall improvement in her lymphedema in her LLE. She decreased sensitivity and improved fatigue as well. She no longer as the heavy feeling in her leg and reports it just feels good . She plans to purchase a single custom compression garment for her LLE. She attempted to use OTC garments but they were very uncomfortable for her. She is still waiting for her pump to be approved by her insurance but feels comfortable to perform self MLD. Location of Pain: BLEs Pre-treatment Pain: 0/10 Post-treatment Pain: 0/10 Restriction/Precaution: No short neck sequence unable to tolerate prone Objective: LE Circumference Right Left 10/30/22 Left 10/15/22 Left Eval 09/16/22 MTPs 24.5 cm 24.5 cm 25 25 cm Dorsum Of Foot 25 cm 24.5 26 26 cm Lat Malleoli 1 30.5 cm 29 cm 31 31.5 cm 2 31 33 37.5 38 3 37.5 41.5 43.5 44 4 47 46.5 49 50 5 54 52 54 54 6 57 57 58.5 60.5 7 64 65 64 65.5 8 68 67.5 67 68 9 68.5 67 67 68 10 67 67 68 69 Treatment Performed: Therapeutic Exercise - 42250 Minutes Performed: Intervention: Manual Therapy - 50515 Minutes Performed: 0 minutes Intervention: -Opened left inguinal lymph nodes, followed by MLD down L LE in recumbent -SS multi-layered wrap applied to LLE following MLD -stockinette H-rosidal soft H-6in artiflex H-2 kidney foam -8cm, 10cm, 12cm SS bandage Neuromuscular Reeducation - 11454 Minutes Performed: Intervention: Therapeutic Activities - 04037 Minutes Performed: 30' H-Measurement of L LE and trunk for garments H-Self-MLD H- Measuring for garments and pump trial - Patient education - Objective measurements Modalities Minutes Performed: Intervention: Total Treatment Time: 30 minutes Education Performed: ASSESSMENT: Note: Ms. Kong has completed 12 PT visits in her current POC. She objectively demonstrates significant improvement in her LLE circumference, making her lower leg almost equivalent to her RLE. She has improved sensitivity to touch and increased softness in her LLE. Pt is independent with donning her SS banding, compression garments, and performing MLD. PLAN: Cont independently with self-MLD, SS bandagig, compression garment and pump use once received. GOALS: 1. Patient will understand lymphedema precautions to decrease the risk of infection and acerbation of lymphedema in left lower leg after first week of treatment. MET 2. Patient will develop tolerance for wearing short-strethc multi-layered bandaging between treatments for up to 22 of 24 hours a day after one week of treatment. MET 3. Patient and spouse will be independent with short-stretch compression bandaging for continued volume reduction and prevention of re-accumulation of edema fluid in two weeks. MET 4. Patient will be independent with donning and doffing of compression garments which will enable regular daily garment wear. MET 5. Patient will achieve maximum lymphedema reduction to enable functional improvements such as fitting in to closed back shoes, start size clothing, improved balance and mobility. MET documented in this encounter Plan of Treatment Not on file documented as of this encounter Visit Diagnoses Diagnosis Lipedema- Primary Lymphedema of left leg Other lymphedema documented in this encounter Care Teams Mechanical Maintenance Engineer Relationship Specialty Start Date End Date Tushar West MD [address] [place] [address] PCP - General INTERNAL MEDICINE 11/21/19 Nas Arndt MD [address] [place] [address] Consulting Physician INTERNAL MEDICINE 09/13/22 Pascual Mccullough MD [address] [facility] [place] [address] ORTHOPAEDIC SURGERY 09/13/22 documented as of this encounter
--- OUTSIDE RECORDS SUMMARY | 2024-07-15 23:56 | XMS_ITS | Encounter Summary ---
Author Organization [facility] Address [facility] [place] [address] [place] [address] Care Team Providers Care Lockstitch Lining Setter Name Role Phone Tushar West MD Primary Care Provider [phone] Nas Arndt MD Unavailable KerseyPascual ho MD Unavailable [phone] Reason for Visit * Reason Comments Injection Knee Pain BILATERAL Encounter Details Date Type Department Care Team (Late st Contact Info) Description 05/28/2024 9:45 AM FABRIC WORKER Office Visit [address] [address] Mariola Mo, [facility] [address] [facility] [place] [id number] Injection; Knee Pain (BILATERAL) Social History Tobacco Use Types Packs/Day Years [...] on file Legal Sex Female 5:52 PM FABRIC WORKER Gender Identity Not on file Sexual Orientation Not on file documented as of this encounter Last Filed Vital Signs Vital Sign Reading Time Taken Comments Blood Pressure - - Pulse - - Temperature - - Respiratory Rate - - Oxygen Saturation - - Inhaled Oxygen Concentration - - Weight 176.9 kg (390 lb) 05/28/2024 9:54 AM FABRIC WORKER Height 165.1 cm (5' 5 ) 05/28/2024 9:54 AM FABRIC WORKER Body Mass Index 64.9 05/28/2024 9:54 AM FABRIC WORKER documented in this encounter Functional Status * [...] Arteaga RN Active documented in this encounter Progress Notes * Maribell Kolb MA - 05/28/2024 9:45 AM CST Olga is a 59-year-old female who presents for Injection and Knee Pain (BILATERAL) Patient in clinic today for BILATERAL knee injection of 1st dose of Euflexxa . Patient had last BILATERAL injection on 05/14/24. She states she has pain when standing and her knees give out. She reports pain Lateral aspect of BILATERAL knee. She takes Ibuprofen PRN. She uses a wheeled walker. No additional nursing task documentation needed. Vitals: 05/28/24 0954 Weight: (!) 176.9 kg (390 lb) Height: 1.651 m (5' 5 ) Current Outpatient Medications Medication Sig albuterol sulfate HFA 108 (90 Base) MCG/ACT inhaler inhale 1 to 2 puffs by mouth every 4 hours as needed aspirin 81 MG chewable tablet Chew 1 tablet (81 mg total) by mouth daily. busPIRone (BUSPAR) 10 MG tablet Take 1 tablet (10 mg total) by mouth 3 (three) times daily. fcckton-tqsutemzl-mgot 333-133-5 MG Tab Take 1 tablet by mouth daily. carvedilol (COREG) 25 MG tablet COMPRESSION STOCKINGS 20-30 MMHG Compression stockings, knee-high, open or closed toe Dx: I83.893 escitalopram (LEXAPRO) 10 MG tablet Take 1 tablet (10 mg total) by mouth daily. gabapentin 300 MG capsule Take 1 capsule (300 mg total) by mouth 2 (two) times a day. LORazepam (ATIVAN) 1 MG tablet Take 1 tablet (1 mg total) by mouth. losartan-hydroCHLOROthiazide (HYZAAR) 100-12.5 MG tablet Take 1 tablet by mouth daily. omega-3 fatty acid (FISH OIL) 500 MG capsule Take 1 capsule (500 mg total) by mouth daily. oxybutynin XL (DITROPAN-XL) 10 MG 24 hr tablet Take 1 tablet (10 mg total) by mouth 2 (two) times daily. vitamin D2, ergocalciferol, (DRISDOL) 1.25 mg capsule Take 1 capsule (1.25 mg total) by mouth. Past Surgical History: Procedure Laterality Date SECTION, CLASSIC HYSTERECTOMY Allergies Patient has no known allergies. [x] Total Glcn-al-Ugzg Assessment Time: 0-15 minutes Additional Contributory Factors NONE IC WORKER * Mariola Mo, POWDER BLENDER-BC - 05/28/2024 9:45 AM CST Images from the original note were not included. Chief Complaint: Injection and Knee Pain (BILATERAL) History of Present Illness: Olga Kong is a 59-year-old female who presents to the office for Injection and Knee Pain (BILATERAL) Patient in clinic today for BILATERAL knee injection of 1st dose of Euflexxa . Patient had last BILATERAL injection on 05/14/24. She states she has pain when standing and her knees give out. She reports pain Lateral aspect of BILATERAL knee. She takes Ibuprofen PRN. She uses a wheeled walker. ROS: See HPI for pertinent positives Problem List: Patient Active Problem List Diagnosis Elevated CO2 level Respiratory failure ([facility]) Primary osteoarthritis of right knee Lymphedema of right lower extremity Lipedema Lymphedema Class 3 severe obesity due to excess calories without serious comorbidity with body mass index (BMI) of 60.0 to 69.9 in adult ([facility]) Primary osteoarthritis of left knee History: Past [...] Brother (Not Specified) MGM MGF PGM PGF No partnership data on file Social History Socioeconomic History Marital status: Tobacco Use Smoking status: Never Smokeless tobacco: Never Vaping Use Vaping status: Never Used Substance and Sexual Activity Alcohol use: Not [...] mouth 3 (three) times daily., Disp:, Rfl: cnglaru-sxhqfkrfw-runi 333-133-5 MG Tab, Take 1 tablet by [...] times a day., Disp: , Rfl: LORazepam (ATIVAN) 1 MG tablet, Take 1 tablet (1 mg total) by mouth., Disp: , Rfl: losartan-hydroCHLOROthiazide (HYZAAR) 100-12.5 MG tablet, Take 1 tablet by mouth daily., Disp: , Rfl: omega-3 fatty acid (FISH OIL) 500 MG capsule, Take 1 capsule (500 mg total) by mouth daily., Disp: , Rfl: oxybutynin XL (DITROPAN-XL) 10 MG 24 hr tablet, Take 1 tablet (10 mg total) by mouth 2 (two) times daily., Disp: , Rfl: vitamin D2, ergocalciferol, (DRISDOL) 1.25 mg capsule, Take 1 capsule (1.25 mg total) by mouth., Disp: , Rfl: Current Facility-Administered Medications: lidocaine (XYLOCAINE) 1 % injection SOLN 8 mL, 8 mL, Other, Once, VILMA Mi-SRIRAM methylPREDNISolone acetate (DEPO-Medrol) injection 80 mg, 80 mg, Other, Once, VILMA Mi-BC Allergies: Review of patient's allergies indicates: No Known Allergies Objective: There were no vitals filed for this visit. Vitals Height: 165.1 cm (5' 5 ) Weight: (!) 176.9 kg (390 lb) BMI (Calculated): (!) 64.9 Physical exam: Constitutional: Alert and in no acute distress. Neurological: The patient was oriented to person, place, and time. Eyes: The sclera and conjunctiva were normal ENT: Hearing was normal. Neck: The appearance of the neck was normal. Cardiovascular: Normal pulses. Pulmonary: No respiratory distress. Skin: No injuries or skin lesion. Musculoskeletal: EXAM of BILATERAL knees is unchanged. Diagnostic Imaging: Labs: ESR Date Value Ref Range Status 11/23/2019 15 0 - 30 MM/HR Final C-REACTIVE PROTEIN Date Value Ref Range Status 03/12/2020 <0.29 <0.80 mg/dL Final No results found for: MRSPCR No data to display Cell Count W Diff Body Fluid: No results found for: SOURCEFLD , FLWC , FLRBC , SEGSFLD , LYMPHSFL , MONOFL Assessment: Encounter Diagnose(s) ICD-10-CM SNOMED CT(R) 1. Primary osteoarthritis of left knee M17.12 OSTEOARTHRITIS OF LEFT KNEE JOINT hyaluronate sodium injection 20 mg 2. Primary osteoarthritis of right knee M17.11 OSTEOARTHRITIS OF RIGHT KNEE JOINT hyaluronate sodium injection 20 mg Procedure: Procedure: Injection of the knee joint on the bilateral. Indications for the procedure include osteoarthritis. The procedure's were discussed with the patient. Verbal consent was obtained prior to the procedure. Procedure Note: Olga was prepped and draped in the usual sterile fashion using alcohol and usingbetadine. Anesthesia: Ethyl chloride spray was used as a topical anesthetic. A 18-gauge was used to inject 2 mL Euflexxa Lot # [id number]. Dressing: A bandage was applied. Post-Procedure: the patient tolerated the procedure well. Complications: there were no complications. Follow-up in the office 1 week. Plan: She has had previous Depo-Medrol injections with short term relief in her symptoms. Since she is still not a surgical candidate at this time we will continue to keep her conservative. I have recommended proceeding with Euflexxa in hopes to provide her relief with her symptoms. She was given her first BILATERAL knee injections in the office today and tolerated well. Activity as tolerated. She is aware that this is a total of 3 injections 1 week apart. She will follow up in 1 week to proceed withher 2nd Euflexxa injection. Follow up: Return in about 1 week (around 06/04/2024) for Injection (BILATERAL knees). DONNA MI IC WORKER documented in this encounter Plan of Treatment Not on file documented as of this encounter Visit Diagnoses Diagnosis Primary osteoarthritis of left knee- Primary Primary localized osteoarthrosis, lower leg Primary osteoarthritis of right knee Primary localized osteoarthrosis, lower leg documented in this encounter Administered Medications Inactive Administered Medications - up to 3 most recent administrations Medication Order MAR Action Action Date Dose Rate Site hyaluronate sodium injection 20 mg 20 mg, Intra-articular, Once, 1 dose, On Fri05/28/24 at 1030Indications:Primary osteoarthritis of left knee Given 05/28/2024 10:15 AM FABRIC WORKER 20 mg Left Knee hyaluronate sodium injection 20 mg 20 mg, Intra-articular, Once, 1 dose, On Fri05/28/24 at 1030Indications:Primary osteoarthritis of right knee Given 05/28/2024 10:14 AM FABRIC WORKER 20 mg Right Knee documented in this encounter Care Teams Lockstitch Lining Setter Relationship Specialty Start Date End Date Tushar West MD [address] [place] [address] PCP - General INTERNAL MEDICINE 11/21/19 Nas Arndt MD [address] [place] [address] Consulting Physician INTERNAL MEDICINE 09/13/22 Pascual Mccullough MD [address] [facility] [place] [address] ORTHOPAEDIC SURGERY 09/13/22 documented as of this encounter
--- OUTSIDE RECORDS SUMMARY | 2024-07-15 23:56 | XMS_ITS | Encounter Summary ---
Author Organization [facility] Address [facility] [place] [address] [place] [address] Care Team Providers Care Dog Or Horse Racing Official Name Role Phone Tushar West MD Primary Care Provider [phone] Nas Arndt MD Unavailable Pascual Mccullough MD Unavailable [phone] Reason for Visit * Reason Comments Edema * Physical Therapy (Routine) - Closed Specialty Diagnoses / Procedures Referred By Contrenato schwartz Referred To Contact [facility] Physical Therapy Diagnoses Lipedema Lymphedema of left lower extremity Procedures OFFICE/OUTPT VISIT,NEW,LEVL III OFFICE/OUTPT VISIT,NEW,LEVL IV OFFICE/OUTPT VISIT,NEW,LEVL V OFFICE/OUTPT VISIT,EST,LEVL III OFFICE/OUTPT VISIT,EST,LEVL IV OFFICE/OUTPT VISIT,EST,LEVL V Mariola Mo, RETAIL OPERATIONS SPECIALIST-BC [address] [facility] [place] [address] Phone: tel: fax: [facility] [address] [place] [address] Phone: tel: fax: Referral ID Status Reason Start Date Expiration Date Visits Re quested Visits Authorized [id number] Closed 09/06/2022 10/06/2023 30 30 Encounter Details Date Type Department Care Team (Late st Contact Info) Description 10/07/2022 3:27 PM CDT - 10/07/2022 11:59 PM CDT Hospital Encounter [facility] [address] [place] [address] Mariola Mo, [facility]- [address] [facility] [place] [id number] Nia Hale, LAMP INSPECTOR Edema Discharge Disposition: Home or Self Care [...] on file Legal Sex Female 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 No / Unsure 10/07/2022 3:26 PM CDT documented as of this encounter [...] by mouth 3 (three) times daily. 08/31/2022 ycpfpkr-qvnwykptj-ox nc 333-133-5 MG Tab Take 1 tablet [...] 1 capsule (1.25 mg total) by mouth. amoxicillin-clavulan ate (AUGMENTIN) 875-125 MG tablet Take 1 tablet (875 mg total) by mouth 2 (two) times daily for 10 days. 20 tablet 10/05/2022 3 carvedilol (COREG) 12.5 MG tablet Take [...] daily. 4 traMADol (ULTRAM) 50 MG tabletIndications:Ac [place] Pain < 3 Day Supply Take 1 tablet (50 mg total) by mouth every 6 (six) hours as needed for Pain. Indications: Acute Pain < 3 Day Supply 10 tablet 10/05/2022 3 documented as of this encounter Progress Notes * Nia Hale, LAMP INSPECTOR - 10/07/2022 3:30 PM CDT PHYSICAL THERAPY TREATMENT NOTE Time In: 1530 Time Out: 1620 Total Time: 50 minutes Name: Olga Kong : 1965 Past Medical History: Diagnosis Date ??? Allergies ??? Anxiety ??? Depression ??? Hypertension ??? Lipedema ??? Lymphedema ??? Neuropathy ??? Obesity ??? Sleep apnea ??? Urinary bladder incontinence Past Surgical History: Procedure Laterality Date ??? SECTION, CLASSIC ??? HYSTERECTOMY Subjective: Diagnosis: LLE Lymphedema/ B Lipidemia Referring Physician: DONNA Su Onset Date: Chronic-Childhood Treatment Day: 8 Total Approved Visits: 20 Therapy Plan of Care: 5x/week with decreasing frequency as patient becomes more independent with self-MLD and applying SS bandaging. Return to MD: As needed Subjective Note: Pt states that her left leg is getting caterer's aide and feeling better. Pt denies any pain pre treatment. Location of Pain: BLEs Pre-treatment Pain: 0/10 Post-treatment Pain: 0/10 Restriction/Precaution: No short neck sequence unable to tolerate prone Objective: Treatment Performed: Therapeutic Exercise - 21437 Minutes Performed: Intervention: Manual Therapy - 03896 Minutes Performed: 50 minutes Intervention: -Opened left inguinal lymph nodes, followed by MLD down L LE in recumbent -SS multi-layered wrap applied to LLE following MLD -stockinette H-rosidal soft H-6in artiflex H-2 kidney foam -8cm, 10cm, 12cm SS bandage Neuromuscular Reeducation - 27511 Minutes Performed: Intervention: Therapeutic Activities - 27987 Minutes Performed: H-Self-MLD H- Measuring for garments and pump trial Modalities Minutes Performed: Intervention: Total Treatment Time: 50 minutes Education Performed: ASSESSMENT: Note: Pt continues to present with decrease in edema in left LE pre and post MLD treatment. SS bandage only applied to left LE for continuation of lymphatic drainage. Pt then re-educated on self MLD and wrapping herself the rest of the week as she doesn't attend therapy until next Friday. PLAN: Plan for next visit: MLD with [...] lymphedema documented in this encounter Care Teams Dog Or Horse Racing Official Relationship Specialty Start Date End Date Tushar West MD [address] [place] [id number] PCP - General INTERNAL MEDICINE 11/21/19 Nas Arndt MD [address] [place] [address] Consulting Physician INTERNAL MEDICINE 09/13/22 Pascual Mccullough MD [address] [facility] [place] [address] ORTHOPAEDIC SURGERY 09/13/22 documented as of this encounter
--- OUTSIDE RECORDS SUMMARY | 2024-07-15 23:56 | XMS_ITS | Encounter Summary ---
Author Organization [facility] Address [facility] [place] [address] [place] [address] Care Team Providers Care Room Cooler Installer Name Role Phone Tushar West MD Primary Care Provider [phone] Nas Arndt MD Unavailable [place] CastlePascual ho MD Unavailable [phone] Reason for Visit * Reason Comments Knee Pain RIGHT Encounter Details Date Type Department Care Team (Late st Contact Info) Description 12/13/2022 9:30 AM CDT Office Visit [address] [address] Mariola Mo, [facility]- [address] 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 No / Unsure 12/13/2022 9:11 AM CDT documented as of this encounter Last Filed Vital Signs Vital Sign Reading Time Taken Comments Blood Pressure - - Pulse - - Temperature - - Respiratory Rate - - Oxygen Saturation - - Inhaled Oxygen Concentration - - Weight 176.9 kg (390 lb) 12/13/2022 9:13 AM CDT Height 162.6 cm (5' 4 ) 12/13/2022 9:13 AM CDT Body Mass Index 66.94 12/13/2022 9:13 AM CDT documented in this encounter Functional [...] documented in this encounter Progress Notes * Lima Anguiano LPN - 12/13/2022 9:30 AM CDT Olga is a 57-year-old female who presents for Knee Pain (RIGHT) Patient in clinic today with RIGHT knee pain. Denies injury. Patient denies radiation, numbness, tingling, or swelling. Pain worse with weight bearing. Describes the pain above the patella. Pain disrupts sleep. Patient takes diclofenac along with ice, with good relief. Patient had cortisone injection on last visit with good results, lasting approx. 2 months. Patient is not employed. No additional nursing task documentation needed. Vitals: 12/13/22 0913 Weight: (!) 176.9 kg (390 lb) Height: 5' 4 (1.626 m) Current Outpatient Medications Medication Sig albuterol sulfate HFA 108 (90 Base) MCG/ACT inhaler inhale 1 to 2 puffs by mouth every 4 hours as needed aspirin 81 MG chewable tablet Chew 1 tablet (81 mg total) by mouth daily. busPIRone (BUSPAR) 10 MG tablet Take 1 tablet (10 mg total) by mouth 3 (three) times daily. iesiene-dejhjwevx-spcj 333-133-5 MG Tab Take 1 tablet by mouth daily. carvedilol (COREG) 25 MG tablet COMPRESSION STOCKINGS 20-30 MMHG Compression stockings, knee-high, open or closed toe Dx: I83.893 diclofenac EC (VOLTAREN) 75 MG tablet Take 1 tablet (75 mg total) by mouth 2 (two) times daily. escitalopram (LEXAPRO) 10 MG tablet Take [...] Patient has no known allergies. [x] Total Vpbt-ko-Yqij Assessment Time: 0-15 minutes Additional Contributory Factors NONE * Mariola Mo, AIR DRILL OPERATOR-BC - 12/13/2022 9:30 AM CDT Chief Complaint: Knee Pain (RIGHT) History of Present Illness: Olga Kong is a 57-year-old female who presents to the office for Knee Pain (RIGHT) Patient in clinic today with RIGHT knee [...] List Diagnosis Elevated CO2 level Respiratory failure ([facility]) Primary osteoarthritis of right knee Lymphedema of right lower extremity Lipedema Lymphedema Class 3 severe obesity due to excess calories without serious comorbidity with body mass index (BMI) of 60.0 to 69.9 in adult (CMS/[facility]) History: Past Medical History: Diagnosis Date Allergies [...] Smoking status: Never Smokeless tobacco: Never Substance and Sexual Activity Alcohol use: Never Drug use: Never Other Topics Concern Exercise No Special Diet [...] mouth 3 (three) times daily., Disp:, Rfl: bfvbtte-uldhmnkql-ybxu 333-133-5 MG Tab, Take 1 tablet by mouth daily., Disp: , Rfl: carvedilol (COREG) 25 MG tablet, , Disp: , Rfl: COMPRESSION STOCKINGS, 20-30 MMHG Compression stockings, knee-high, open or closed toe Dx: I83.893,Disp: 2 Container, Rfl: 5 diclofenac EC (VOLTAREN) 75 MG tablet, Take [...] Known Allergies Objective: Body mass index is 66.94 kg/m??. Last Recorded Weight 12/13/22 09 Weight: (!) 176.9 kg (390 lb) Physical exam: Constitutional: Alert and in no acute distress. Neurological: The patient was oriented to person, place, and time. Eyes: The sclera and conjunctiva were normal ENT: Hearing was normal. Neck: The appearance of the neck was normal. Cardiovascular: Normal pulses. Pulmonary: No respiratory distress. Skin: No injuries or skin lesion. Musculoskeletal: EXAM of RIGHT knee today reveals medial joint line tenderness with palpation, no groin pain with hip rotation, range of motion 0-95 and limited secondary to body habitus, neurovascularly intact, continued lower leg swelling that has greatly improved since her last visit without redness or warmth. Procedure: Procedure: Injection of the Knee Joint on the right. Indications for the procedure include Osteoarthritis and [...] the office prn. Assessment: Encounter Diagnose(s) ICD-10-CM ICD-9-CM SNOMED CT(R) 1. Primary osteoarthritis of right knee M17.11 715.16 OSTEOARTHRITIS OF RIGHT KNEE JOINT Plan: Patient has had previous injections with some relief with her symptoms. She is not a surgical candidate due to her BMI but she has been working on her weight currently. She has already lost 17 lbs and is making progress slowly but heading in the right direction. She is also continuing to try to remain active with her mobility as well as continue to wear the compression socks to assist with her lower leg swelling. She was told to stop the diclofenac for concern for swelling but overall she is doing well and not having increased swelling and she is seeing relief with her joint pain so she can remain active. I have recommended that she may continue with the diclofenac and if she see increased swelling to notify our office. She is also awaiting for insurance approval for her compress garments. She was given another injection in the office today and tolerated well. Activity as tolerated. Sheis aware she may have injections every 3 months as needed for her pain. She will follow up as needed for her pain. Follow up: Return if symptoms worsen or fail to improve. DONNA MI documented in this encounter Plan of Treatment Not on file documented as of this encounter Visit Diagnoses Diagnosis Primary osteoarthritis of right knee- Primary Primary localized osteoarthrosis, lower leg documented in this encounter Administered Medications Inactive Administered Medications - up to 3 most recent administrations Medication Order MAR Action Action Date Dose Rate Site lidocaine (XYLOCAINE) 1 % injection SOLN 8 mL 8 mL, Other, Once, 1 dose, On Fri12/13/22 at 1015Indications:Primary osteoarthritis of right knee Given 12/13/2022 9:50 AM CDT 8 mLs methylPREDNISolone acetate (DEPO-Medrol) injection 80 mg 80 mg, Other, Once, 1 dose, On Fri12/13/22 at 1015, Shake WellIndications:Primary osteoarthritis of right knee Given 12/13/2022 9:50 AM CDT 80 mg documented in this encounter Care Teams Room Cooler Installer Relationship Specialty Start Date End Date Tushar West MD [address] [place] [address] PCP - General INTERNAL MEDICINE 11/21/19 Nas Arndt MD [address] [place] [address] Consulting Physician INTERNAL MEDICINE 09/13/22 Pascual Mccullough MD [address] [address] ORTHOPAEDIC SURGERY 09/13/22 documented as of this encounter
--- OUTSIDE RECORDS SUMMARY | 2024-07-15 23:56 | XMS_ITS | Encounter Summary ---
Author Organization [facility] Address [facility] [facility] 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 RN contacted patient in order to check her progress and to determine if she needs to proceed with injection. Authorization was done in case patient did not get relief with steroid injection. No answer, left message. documented in this encounter Plan of Treatment Not on file documented as of this encounter Visit Diagnoses Not on filedocumented in this encounter Care Teams Sonoscope Operator Relationship Specialty Start Date End Date Tushar West MD [address] [place] [place] [phone] PCP - General INTERNAL MEDICINE 11/21/19 Nas Arndt MD [address] [place] [address] Consulting Physician INTERNAL MEDICINE 09/13/22 Pascual Mccullough MD [address] [facility] [place] [address] ORTHOPAEDIC SURGERY 09/13/22 documented as of this encounter
--- OUTSIDE RECORDS SUMMARY | 2024-07-15 23:56 | XMS_ITS | Encounter Summary ---
Author Organization [facility] Address [facility] [facility] [place] [address] [place] [address] Care Team Providers Care Addiction Treatment Counselor Name Role Phone Tushar West MD Primary Care Provider [phone] Nas Arndt MD Unavailable Pascual Mccullough MD Unavailable [phone] Encounter Details Date Type Department Care Team (Late st Contact Info) Description 04/15/2023 Orders Only [facility] [address] [place] [id number] Nas Arndt MD [address] 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
--- OUTSIDE RECORDS SUMMARY | 2024-07-15 23:56 | XMS_ITS | Encounter Summary ---
Author Organization [facility] Address [facility]6 [facility] [place] [address] [place] [address] Care Team Providers Care Mother Helper Name Role Phone Tushar Guan MD Primary Care Provider [phone] Nas Arndt MD Unavailable Pascual Mccullough MD Unavailable [phone] Reason for Visit * Reason Comments Consult Lower extremity man a Encounter Details Date Type Department Care Team (Latest Contact Info) Description 10/01/2022 8:30 AM CDT Office Visit [facility]-[address] [place] [address] Nas Arndt MD [address] 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 No / Unsure 09/30/2022 2:25 PM CDT documented as of this encounter Last Filed Vital Signs Vital Sign Reading Time Taken Comments Blood Pressure 134/89 10/01/2022 8:38 AM CDT Pulse 77 10/01/2022 8:38 AM CDT Temperature - - Respiratory Rate - - Oxygen Saturation - - Inhaled Oxygen Concentration - - Weight 181.7 kg (400 lb 9.6 oz) 10/01/2022 8:38 AM CDT Height 162.6 cm (5' 4 ) 10/01/2022 8:38 AM CDT Body Mass Index 68.76 10/01/2022 8:38 AM CDT documented in this encounter Functional [...] Assessment Author Status No 11/21/2019 9:39 AM MADDYT Corrina Gordon RN Active documented as of this encounter Mental Status * Because of a physical, mental, or emotional condition, do you have serious difficulty concentrating, remembering, or making decisions? Answer Entry Date Author Status No 11/21/2019 9:39 AM CDT Corrina Gordon RN Active documented in this encounter Progress Notes * Nas Arndt MD - 10/01/2022 8:30 AM CDT Reason for Visit: Consult (Lower extremity edema) History of Present Illness: 57-year-old female who has been referred to me by your office. Patient's cardiovascular history consists of: 1. Bilateral lower extremity swelling for many years. 2. Morbid obesity. 3. Hypertension. 4. Advanced osteoarthritis. The patient tells me that she has [...] varicose veins. ASSESSMENT AND PLAN: 1. Bilateral lipedema. I suspect the patient has lipedema and some early progression to lymphedema,strongly agree with compression and lymphedema therapy that she is receiving, but I discussed with the patient that the main issue with lipedema treatments are somewhat limited. Discussed with her regarding swelling and water-based aerobic exercises, cycling, but I was upfront with her regarding lipedema. 2. Morbid obesity. Majority of her issues are also obesity-related with limited walking and significant knee arthritis. I spoke to her and her at length regarding weight loss and proper therapy for weight loss and treatment and calorie counting, etc., and diet being the main issue. She is also on some Voltaren and Diclofenac, which could be also causing issues. 3. Hypertension. Blood pressure is well controlled. 4. Advanced osteoarthritis. Weight loss would be significantly helpful. Her BMI is 58.76. Thank you very much. Follow up in 3 months. #[id number] /KACEY/ASS Medications: Current Outpatient Medications: ??? dlfedpv-wkroflrpd-rooa 333-133-5 MG Tab, Take 1 tablet by mouth daily., Disp: , Rfl: ??? omega-3 fatty acid (FISH OIL) 500 MG capsule, Take 1 capsule (500 mg total) by mouth daily., Disp: , Rfl: ??? vitamin D2, ergocalciferol, (DRISDOL) 1.25 mg capsule, Take 1 capsule (1.25 mg total) by mouth., Disp: , Rfl: ??? albuterol sulfate HFA 108 (90 Base) MCG/ACT inhaler, inhale 1 to 2 puffs by mouth every 4 hoursas needed, Disp: , Rfl: ??? aspirin 81 MG chewable tablet, Chew 81 mg by mouth daily., Disp: , Rfl: ??? busPIRone (BUSPAR) 10 MG tablet, Take 10 mg by mouth 3 (three) times daily., Disp: , Rfl: ??? carvedilol (COREG) 12.5 MG tablet, Take 12.5 mg by mouth 2 (two) times daily with meals., Disp: , Rfl: ??? diclofenac EC (VOLTAREN) 75 MG tablet, Take 1 tablet (75 mg total) by mouth 2 (two) times daily., Disp: 60 tablet, Rfl: 2 ??? escitalopram (LEXAPRO) 10 MG tablet, Take 1 tablet (10 mg total) by mouth daily., Disp: , Rfl: ??? gabapentin 300 MG capsule, Take 300 mg by mouth nightly., Disp: , Rfl: ??? LORazepam 0.5 MG tablet, Take 0.5-1 mg by mouth nightly as needed for Anxiety. , Disp: , Rfl: ??? losartan-hydroCHLOROthiazide (HYZAAR) 100-12.5 MG tablet, Take 1 tablet by mouth daily., Disp: , Rfl: ??? oxybutynin 5 MG tablet, Take 10 mg by mouth 2 (two) times daily., Disp: , Rfl: No Known Allergies Past Medical History: Diagnosis Date ??? Allergies ??? Anxiety ??? Depression ??? Hypertension ??? Lipedema ??? Lymphedema ??? Neuropathy ??? Obesity ??? Sleep apnea ??? Urinary bladder incontinence Past Surgical History: Procedure Laterality Date ??? SECTION, CLASSIC ??? HYSTERECTOMY Social History Tobacco Use ??? Smoking status: Never ??? Smokeless tobacco: Never Substance Use Topics ??? Alcohol use: Never ??? Drug use: Never Family History Problem Relation Name Age of Onset ??? Heart Disease Mother ??? Kidney Disease Mother ??? Heart Disease Father ??? Diabetes Brother Family Status Relation Name Status ??? Mother Alive ??? Father ??? Brother (Not Specified) ??? MGM ??? MGF ??? PGM ??? PGF Review of Systems Constitutional: Negative for [...] joint stiffness/pain. Skin: Negative for rash. Neurological: Negative for tingling/numbness and focal weakness. Endo/Heme/Allergies: Negative for new or significant bruising/bleeding and polydipsia. Psychiatric/Behavioral: Negative for depression and new or significant memory loss. Vitals: 10/01/22 0838 BP: 134/89 BP Location: Right arm Pulse: 77 Weight: (!) 181.7 kg (400 lb 9.6 oz) Height: 5' 4 (1.626 m) Body mass index is 68.76 kg/m??. Cardiac Exam Rate/Rhythm: Normal rate and [...] large varicose veins noted. Diagnoses/Impression: 1. Lipedema 2. Lymphedema of right lower extremity 3. Class 3 severe obesity due to excess calories without serious comorbidity with body mass index (BMI) of 60.0 to 69.9 in adult ([facility]) Referring Provider: No ref. provider found PCP: TUSHAR GUAN MD documented in this encounter Plan of Treatment Not on file documented as of this encounter Visit Diagnoses Diagnosis Lipedema- Primary Lymphedema of right lower extremity Class 3 severe obesity due to excess calories without serious comorbidity with body mass index (BMI) of 60.0 to 69.9 in adult ([facility]) documented in this encounter Care Teams Mother Helper Relationship Specialty Start Date End Date Tushar Guan MD [address] [place] [address] PCP - General INTERNAL MEDICINE 11/21/19 Nas Arndt MD [address] [place] [address] Consulting Physician INTERNAL MEDICINE 09/13/22 Pascual Mccullough MD [address] [facility] [place] [address] ORTHOPAEDIC SURGERY 09/13/22 documented as of this encounter
--- OUTSIDE RECORDS SUMMARY | 2024-07-15 23:56 | XMS_ITS | Encounter Summary ---
Author Organization [facility] Address [facility] 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
--- OUTSIDE RECORDS SUMMARY | 2024-07-15 23:56 | XMS_ITS | Encounter Summary ---
Author Organization [facility] Address [facility] 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
--- OUTSIDE RECORDS SUMMARY | 2024-07-15 23:56 | XMS_ITS | Encounter Summary ---
Author Organization [facility] Address [facility] [place] [address] [place] [address] Care Team Providers Care Patent Clerk Name Role Phone Tushar West MD Primary Care Provider [phone] Nas Arndt MD Unavailable Pascual Mccullough MD Unavailable [phone] Encounter Details Date Type Department Care Team (Late st Contact Info) Description 04/14/2023 10:15 AM CDT - 04/14/2023 11:59 PM CDT Hospital Encounter [facility] Diagnostic Imaging [address] [place] [address] Conrad Mo, [facility] [address] [facility] [place] [address] Discharge Disposition: Home or Self Care (Routine [...] on file 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 08/31/2022 calcium-magnesiu m-zinc 333-133-5 MG Tab Take 1 tablet by mouth daily. carvedilol (COREG) 25 MG tablet 12/04/2022 COMPRESSION STOCKINGSIndicat ions:Lipedema 20-30 MMHG Compression stockings, knee-high, open or closed toe Dx: I83.893 2 Container 5 12/10/2022 escitalopram (LEXAPRO) 10 MG tablet Take 1 tablet (10 mg total) by mouth daily. 08/31/2022 gabapentin 300 MG capsule Take 1 capsule (300 mg total) by mouth 2 (two) times a day. losartan-hydroCH LOROthiazide (HYZAAR) 100-12.5 MG tablet Take 1 tablet by mouth daily. 08/31/2022 omega-3 fatty acid (FISH OIL) 500 MG capsule Take 1 capsule (500 mg total) by mouth daily. vitamin D2, ergocalciferol, (DRISDOL) 1.25 mg capsule Take 1 capsule (1.25 mg total) by mouth. LORazepam 0.5 MG tablet Take 1-2 tablets (0.5-1 mg total) by mouth nightly as needed for Anxiety. 4 oxybutynin 5 MG tablet Take 2 tablets (10 mg total) by mouth 2 (two) times daily. 4 documented as of this encounter Plan of Treatment Not on file documented as of this encounter Procedures Procedure Name Priority Date/Time Associated Diagnosis Comments XR KNEE LT 2V Routine 04/14/2023 1:28 PM CDT Primary osteoarthritis of left knee XR KNEE STAND AP KEKE ONLY Routine 04/14/2023 10:35 AM CDT Primary osteoarthritis of right knee XR KNEE RT 2V Routine 04/14/2023 10:35 AM CDT Primary osteoarthritis of right knee documented in this encounter Results * XR KNEE LT [...] By: Mio Brooks MD, 04/15/2023 6:57 AM us Conrad Mo ELECTRONIC ORGAN TECHNICIAN-BC GENERAL IMAGING Final Resu lt * XR KNEE RT 2V (04/14/2023 10:35 AM CDT) Anatomical Region Laterality Modality Knee Radiographic Kathleen ging 04/14/2023 10:5 4 AM CDT Impressions 04/14/2023 10:55 AM CDT IMPRESSION: Xlhe-gp-dgfi contact in the medial compartment right knee and medial compartment of the left knee. No significant progression from earlier this year. Ordered By: CONRAD MO Interpreted By: Venkata Gil MD, 04/14/2023 10:54 AM Narrative 04/14/2023 10:55 AM CDT Examination: XR KNEE RT 2V, XR KNEE STAND AP KEKE ONLY Exam time: 04/14/2023 10:35 AM Clinical history: Chronic right knee pain. Left knee is for comparison. Comparison: 09/06/2022 Technique: 2 view right knee. Standing AP bilateral one view knee. Findings: There is uhzr-so-vaqe contact in the medial compartment of both knees. Thick marginal osteophytes are present. Subarticular sclerotic changes are seen from the bony contact. X-ray cannot exclude osteonecrosis. Chondrocalcinosis in both knees. Likely small reactive joint fluid of the right knee. No fracture. No significant progression since earlier this year. Procedure Note Venkata Gil MD - 04/14/2023 Examination: XR KNEE RT 2V, XR KNEE STAND AP KEKE ONLY Exam time: 04/14/2023 10:35 AM Clinical history: Chronic right knee pain. Left knee is for comparison. Comparison: 09/06/2022 Technique: 2 view right knee. Standing AP bilateral one view knee. Findings: There is ihbv-wr-zufy contact in the medial compartment of bothknees. Thick marginal osteophytes are present. Subarticular scleroticchanges are seen from the bony contact. X-ray cannot excludeosteonecrosis. Chondrocalcinosis in both knees. Likely small reactivejoint fluid of the right knee. No fracture. No significant progressionsince earlier this year. IMPRESSION: Tage-qu-rpvd contact in the medial compartment right knee and medialcompartment of the left knee. No significant progression from earlier thisyear. Ordered By: CONRAD MO Interpreted By: Venkata Gil MD, 04/14/2023 10:54 AM Conrad Mo ELECTRONIC ORGAN TECHNICIAN-BC GENERAL IMAGING Final Resu lt * XR KNEE STAND AP KEKE ONLY (04/14/2023 10:35 AM CDT) Anatomical Region Laterality Modality Knee Radiographic Kathleen ging 04/14/2023 10:5 4 AM CDT Impressions 04/14/2023 10:55 AM CDT IMPRESSION: Pztg-eh-fzdv contact in the medial compartment right knee and medial compartment of the left knee. No significant progression from earlier this year. Ordered By: CONRAD MO Interpreted By: Venkata Gil MD, 04/14/2023 10:54 AM Narrative 04/14/2023 10:55 AM CDT Examination: XR KNEE RT 2V, XR KNEE STAND AP KEKE ONLY Exam time: 04/14/2023 10:35 AM Clinical history: Chronic right knee pain. Left knee is for comparison. Comparison: 09/06/2022 Technique: 2 view right knee. Standing AP bilateral one view knee. Findings: There is sqgt-ca-wbsq contact in the medial compartment of both knees. Thick marginal osteophytes are present. Subarticular sclerotic changes are seen from the bony contact. X-ray cannot exclude osteonecrosis. Chondrocalcinosis in both knees. Likely small reactive joint fluid of the right knee. No fracture. No significant progression since earlier this year. Procedure Note Venkata Gil MD - 04/14/2023 Examination: XR KNEE RT 2V, XR KNEE STAND AP KEKE ONLY Exam time: 04/14/2023 10:35 AM Clinical history: Chronic right knee pain. Left knee is for comparison. Comparison: 09/06/2022 Technique: 2 view right knee. Standing AP bilateral one view knee. Findings: There is ahtd-zs-ikzp contact in the medial compartment of bothknees. Thick marginal osteophytes are present. Subarticular scleroticchanges are seen from the bony contact. X-ray cannot excludeosteonecrosis. Chondrocalcinosis in both knees. Likely small reactivejoint fluid of the right knee. No fracture. No significant progressionsince earlier this year. IMPRESSION: Cqaq-ay-ckev contact in the medial compartment right knee and medialcompartment of the left knee. No significant progression from earlier thisyear. Ordered By: CONRAD MO Interpreted By: Venkata Gil MD, 04/14/2023 10:54 AM Conrad Mo ELECTRONIC ORGAN TECHNICIAN-BC GENERAL IMAGING Final Resu lt documented in this encounter Visit Diagnoses Diagnosis Primary osteoarthritis of right knee Primary localized osteoarthrosis, lower leg Primary osteoarthritis of left knee Primary localized osteoarthrosis, lower leg documented in this encounter Care Teams Patent Clerk Relationship Specialty Start Date End Date Tushar West MD [address] [place] [id number] PCP - General INTERNAL MEDICINE 11/21/19 Nas Arndt MD [address] [place] [address] Consulting Physician INTERNAL MEDICINE 09/13/22 Pascual Mccullough MD [address] [place] [address] ORTHOPAEDIC SURGERY 09/13/22 documented as of this encounter
--- OUTSIDE RECORDS SUMMARY | 2024-07-15 23:56 | XMS_ITS | Encounter Summary ---
Author Organization [facility] Address [facility] [place] [address] [place] [address] Care Team Providers Care Immigration Judge Name Role Phone Tushar West MD Primary Care Provider [phone] Nas Arndt MD Unavailable Pascual Mccullough MD Unavailable [phone] Reason for Visit * Reason Comments Injection BILATERAL #2 Euflexx a Encounter Details Date Type Department Care Team (Late st Contact Info) Description 06/07/2024 9:45 AM SILVERER Office Visit [facility] [place] [address] [address] Mariola Mo, [facility] [address] [facility] [place] [address] Injection (BILATERAL #2 Euflexxa) Social History Tobacco Use Types Packs/Day Years [...] on file 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 Gender Identity Not on file Sexual Orientation Not on file documented as of this encounter Last Filed Vital Signs Vital Sign Reading Time Taken Comments Blood Pressure - - Pulse - - Temperature - - Respiratory Rate - - Oxygen Saturation - - Inhaled Oxygen Concentration - - Weight 176.9 kg (390 lb) 06/07/2024 9:37 AM SILVERER Height 165.1 cm (5' 5 ) 06/07/2024 9:37 AM SILVERER Body Mass Index 64.9 06/07/2024 9:37 AM SILVERER documented in this encounter Functional Status * [...] documented in this encounter Progress Notes * Elipdio Rodriguez RN - 06/07/2024 9:45 AM CST Olga is a 59-year-old female who presents for Injection (BILATERAL #2 Euflexxa) Patient comes in to clinic today for #2/3 Euflexxa injection to BILATERAL knees. Patient reports LEFT knee is a little more painful than the RIGHT knee, but reports getting some relief from the injection and oral steroid. She is taking Ibuprofen PRN when she anticipates being busy. She is walking with a walker in clinic today. No additional nursing task documentation needed. Vitals: 06/07/24 0937 Weight: (!) 176.9 kg (390 lb) Height: [...] total) by mouth 3 (three) times daily. xovtkil-rgullxhqv-ggca 333-133-5 MG Tab Take 1 tablet by [...] Patient has no known allergies. [x] Total Kujq-al-Caez Assessment Time: 0-15 minutes Additional Contributory Factors NONE ERER * VILMA Mi-SRIRAM - 06/07/2024 9:45 AM CST Images from the original note were not included. Chief Complaint: Injection (BILATERAL #2 Euflexxa) History of Present Illness: Olga Kong is a 59-year-old female who presents to the office for Injection (BILATERAL #2 Euflexxa) Patient comes in to clinic today for #2/3 Euflexxa injection to BILATERAL knees. Patient reports LEFT knee is a little more painful than the RIGHT knee, but reports getting some relief from the injection and oral steroid. She is taking Ibuprofen PRN when she anticipates being busy. She is walking with a walker in clinic today. Previous HPI:05/28/24 Patient in clinic today for BILATERAL knee [...] List Diagnosis Elevated CO2 level Respiratory failure ([facility] HHS/HCC) Primary osteoarthritis of right knee Lymphedema of right lower extremity Lipedema Lymphedema Class 3 severe obesity due to excess calories without serious comorbidity with body mass index (BMI) of 60.0 to 69.9 in adult ([facility] HHS/HCC) Primary osteoarthritis of left knee History: Past [...] mouth 3 (three) times daily., Disp:, Rfl: ojgmqrv-ugqlsakfh-ljfk 333-133-5 MG Tab, Take 1 tablet by [...] injection 80 mg, 80 mg, Other, Once, Mariola Mo, GREEN PLUMBER-BC Allergies: Review of patient's allergies indicates: No [...] skin lesion. Musculoskeletal: EXAM of BILATERAL knees unchanged. Diagnostic Imaging: Labs: ESR Date Value [...] KNEE JOINT hyaluronate sodium injection 20 mg hyaluronate sodium injection 20 mg 2. Primary osteoarthritis of right knee M17.11 OSTEOARTHRITIS OF RIGHT KNEE JOINT hyaluronate sodium injection 20 mg hyaluronate sodium injection 20 mg Procedure: Procedure: [...] to inject 2 mL Euflexxa Lot # [id number]. Dressing: A bandage was applied. Post-Procedure: the patient tolerated the procedure well. Complications: there were no complications. Follow-up in the office 1 week. Plan: She was given her 2nd Euflexxa injection BILATERALLY in the office today and tolerated well. Activity as tolerated. She will follow up in 1 week to receive her 3rd and final set of Euflexxa injections. Follow up: Return for 3rd Euflexxa Injections BILATERALLY . DONNA MI ERER ERER documented in this encounter Plan of Treatment [...] 20 mg, Intra-articular, Once, 1 dose, On Fri06/07/24 at 1015Indications:Primary osteoarthritis of left knee,Primary osteoarthritis of right knee Given 06/07/2024 9:59 AM SILVERER 20 mg Right Knee hyaluronate sodium injection 20 mg 20 mg, Intra-articular, Once, 1 dose, On Fri06/07/24 at 1015Indications:Primary osteoarthritis of left knee,Primary osteoarthritis of right knee Given 06/07/2024 9:59 AM SILVERER 20 mg Left Knee documented in this encounter Care Teams Immigration Judge Relationship Specialty Start Date End Date Tushar West MD [address] [place] [address] PCP - General INTERNAL MEDICINE 11/21/19 Nas Arndt MD [address] [place] [address] Consulting Physician INTERNAL MEDICINE 09/13/22 [place] [address] [place] [address] [place] [address] ORTHOPAEDIC SURGERY 09/13/22 documented as of this encounter
--- OUTSIDE RECORDS SUMMARY | 2024-07-15 23:56 | XMS_ITS | Encounter Summary ---
Author Organization [facility] Address [facility]6 [facility] [place] [address] [place] [address] Care Team Providers Care Air Brush Operator Name Role Phone Tushar West MD Primary Care Provider [phone] Nas Arndt MD Unavailable Pascual Mccullough MD Unavailable [phone] Reason for Referral * Consultation (Routine) - Closed Specialty Diagnoses / Procedures Referred By Luc schwartz Referred To Contact [facility] Orthopaedics Diagnoses Primary osteoarthritis of right knee Procedures OFFICE/OUTPT VISIT,NEW,LEVL III OFFICE/OUTPT VISIT,NEW,LEVL IV OFFICE/OUTPT VISIT,NEW,LEVL V OFFICE/OUTPT VISIT,EST,LEVL III OFFICE/OUTPT VISIT,EST,LEVL IV OFFICE/OUTPT VISIT,EST,LEVL V Maroila Mo, [facility]- [address] [place] [address] Phone: tel: fax: [facility] [address], [address] [address] Phone: tel: fax: Referral ID Status Reason Start Date Expiration Date Visits Re quested Visits Authorized [id number] Closed 10/15/2022 10/16/2023 1 1 Scheduling Instructions Please obtain approval for Synvisc injection and call patient with appointment when approved. 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 No / Unsure 10/14/2022 3:29 PM CDT documented as of this encounter [...] documented in this encounter Plan of Treatment Scheduled Referrals Name Type Priority Associated Diagnoses Orde r Schedule Ambulatory referral for Procedure Referral Routine Primary osteoarthritis of right knee Ordered: 10/15/2022 documented as of this encounter Visit Diagnoses Diagnosis Primary osteoarthritis of right knee- Primary Primary localized osteoarthrosis, lower leg documented in this encounter Care Teams Air Brush Operator Relationship Specialty Start Date End Date Tushar West MD [address] [place] [address] PCP - General INTERNAL MEDICINE 11/21/19 Nas Arndt MD [address] [place] [address] Consulting Physician INTERNAL MEDICINE 09/13/22 Pascual Mccullough MD [address] [facility] [place] [address] ORTHOPAEDIC SURGERY 09/13/22 documented as of this encounter
--- OUTSIDE RECORDS SUMMARY | 2024-07-15 23:56 | XMS_ITS | Encounter Summary ---
Author Organization [facility] Address [facility] 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 Findings: There is asqs-pv-fguf contact in the medial compartment of both [...] bilateral one view knee. Findings: There is puru-ys-klvv contact in the medial compartment of bothknees. Thick marginal osteophytes are present. Subarticular scleroticchanges are seen from the bony contact. X-ray cannot excludeosteonecrosis. Chondrocalcinosis in both knees. Likely small reactivejoint fluid of the right knee. No fracture. No significant progressionsince earlier this year. IMPRESSION: Jmqs-ni-jsxk contact in the medial compartment right knee and medialcompartment of the left knee. No significant progression from earlier thisyear. Ordered By: CONRAD MO Interpreted By: Venkata Gil MD, 04/14/2023 10:54 AM Conrad Mo BEAUTY ARTIST-BC GENERAL IMAGING Final Resu lt * XR KNEE STAND AP KEKE ONLY (04/14/2023 10:35 AM CDT) Anatomical Region Laterality Modality Knee Radiographic Kathleen ging 04/14/2023 10:5 4 AM CDT Impressions 04/14/2023 10:55 AM CDT IMPRESSION: Qibk-wm-eqgf contact in the medial compartment right knee [...] bilateral one view knee. Findings: There is rrgf-gs-zbon contact in the medial compartment of both [...] bilateral one view knee. Findings: There is vdep-tw-btqu contact in the medial compartment of bothknees. Thick marginal osteophytes are present. Subarticular scleroticchanges are seen from the bony contact. X-ray cannot excludeosteonecrosis. Chondrocalcinosis in both knees. Likely small reactivejoint fluid of the right knee. No fracture. No significant progressionsince earlier this year. IMPRESSION: Kkys-ei-xzyx contact in the medial compartment right knee and medialcompartment of the left knee. No significant progression from earlier thisyear. Ordered By: CONRAD MO Interpreted By: Venkata Gil MD, 04/14/2023 10:54 AM Conrad Mo BEAUTY ARTIST-BC GENERAL IMAGING Final Resu lt documented in this encounter Visit Diagnoses Diagnosis Primary osteoarthritis of right knee- Primary Primary localized osteoarthrosis, lower leg Primary osteoarthritis of right knee Primary localized osteoarthrosis, lower leg Primary osteoarthritis of left knee Primary localized osteoarthrosis, lower leg documented in this encounter Care Teams Police Or Patrol Park Officer Relationship Specialty Start Date End Date Tushar West MD [address] [place] [address] PCP - General INTERNAL MEDICINE 11/21/19 Nas Arndt MD [address] [place] [address] Consulting Physician INTERNAL MEDICINE 09/13/22 Pascual Mccullough MD [address] [place] [address] ORTHOPAEDIC SURGERY 09/13/22 documented as of this encounter
--- OUTSIDE RECORDS SUMMARY | 2024-07-15 23:56 | XMS_ITS | Encounter Summary ---
Author Organization [facility] Address [facility]6 [place] [address] [place] [address] Care Team Providers Care Hardware Designer Name Role Phone Tushar West MD Primary Care Provider [phone] Nas Arndt MD Unavailable Pascual Mccullough MD Unavailable [phone] Reason for Visit * Reason Comments Edema * Physical Therapy (Routine) - Closed Specialty Diagnoses / Procedures Referred By Contrenato schwartz Referred To Contact [facility] Physical Therapy Diagnoses Lipedema Lymphedema of left lower extremity Procedures OFFICE/OUTPT VISIT,NEW,LEVL III OFFICE/OUTPT VISIT,NEW,LEVL IV OFFICE/OUTPT VISIT,NEW,LEVL V OFFICE/OUTPT VISIT,EST,LEVL III OFFICE/OUTPT VISIT,EST,LEVL IV OFFICE/OUTPT VISIT,EST,LEVL V Mariola Mo, OCEAN LIFEGUARD SPECIALIST-BC [address] [facility] [place] [address] Phone: tel: fax: [facility] [address] [place] [address] Phone: tel: fax: Referral ID Status Reason Start Date Expiration Date Visits Re quested Visits Authorized [id number] Closed 09/06/2022 10/06/2023 30 30 Encounter Details Date Type Department Care Team (Late st Contact Info) Description 09/27/2022 10:55 AM CDT - 09/27/2022 11:59 PM CDT Hospital Encounter [facility] [address] [place] [address] Ania Awan, PT [address] [place] [address] Mariola Mo, OCEAN LIFEGUARD SPECIALIST- [address] [facility] [place] [address] Edema Discharge Disposition: Home or Self Care [...] on file 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 Allergies ??? Anxiety ??? Depression ??? Hypertension ??? Lipedema ??? Lymphedema ??? Neuropathy ??? Obesity ??? Sleep apnea ??? Urinary bladder incontinence Past Surgical History: Procedure Laterality Date ??? SECTION, CLASSIC ??? HYSTERECTOMY Subjective: Diagnosis: LLE Lymphedema/ B Lipidemia Referring Physician: ALDO SuBC Onset Date: Chronic-Childhood Treatment Day: 6 Total Approved Visits: 20 Therapy Plan of Care: 5x/week with decreasing frequency as patient becomes more independent with self-MLD and applying SS bandaging. Return to MD: As needed Subjective Note: Pt reports her wrap only stayed in place until she went to bed last night. Found apair of tennis shoes but did not get a chance to try them on. Location of Pain: BLEs Pre-treatment Pain: 0/10 Post-treatment Pain: 0/10 Restriction/Precaution: No short neck sequence unable to tolerate prone Objective: Treatment Performed: Therapeutic Exercise - 94708 Minutes Performed: Intervention: Manual Therapy - 49278 Minutes Performed: 55 minutes Intervention: -Opened left inguinal lymph nodes, followed by MLD down L LE in recumbent -SS multi-layered wrap applied to LLE following MLD -kathya H-rosidal soft H-6in artiflex H-2 kidney foam -8cm, 10cm, 12cm SS bandage Neuromuscular Reeducation - 11363 Minutes Performed: Intervention: Therapeutic Activities - 45515 Minutes Performed: 0 -Pt educated on a Jobst Farrow Wrap Classic to be worn instead of SS multi layered bandaging as it fell down last night. Will see how bandage stays up after this session. Modalities Minutes Performed: Intervention: Total Treatment Time: 55 minutes Education Performed: Pt instructed to keep SS multi layered bandage on until two hours prior to next visit unless it became too tight or if patient wasn't able to tolerate it. ASSESSMENT: Note: Discussed with patient custom garment options this date. Pt presents with continued edema improvement with minimal tenderness noted. Will decrease frequency of patient to 3 times next week. PLAN: Plan for next visit: MLD with [...] lymphedema documented in this encounter Care Teams Hardware Designer Relationship Specialty Start Date End Date Tushar West MD [address] [place] [address] PCP - General INTERNAL MEDICINE 11/21/19 Nas Arndt MD [address] [place] [address] Consulting Physician INTERNAL MEDICINE 09/13/22 Pascual Mccullough MD [address] [facility] [place] [address] ORTHOPAEDIC SURGERY 09/13/22 documented as of this encounter
--- OUTSIDE RECORDS SUMMARY | 2024-07-15 23:56 | XMS_ITS | Encounter Summary ---
Author Organization [facility] Address [facility] [place] [address] [place] [address] Care Team Providers Care Assembler Truck Trailer Name Role Phone Tushar West MD Primary Care Provider [phone] Nas Arndt MD Unavailable Pascual Mccullough MD Unavailable [phone] Encounter Details Date Type Department Care Team (Late st Contact Info) Description 02/03/2024 2:08 PM CDT - 02/03/2024 11:59 PM CDT Hospital Encounter [facility] Diagnostic Imaging [address] [place] [address] Conrad Mo, [facility] [address] [facility] [address] Discharge Disposition: Home or Self Care (Routine [...] on file 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 01/09/2024 losartan-hydroCH LOROthiazide (HYZAAR) 100-12.5 MG tablet Take 1 tablet by mouth daily. 08/31/2022 omega-3 fatty acid (FISH OIL) 500 MG capsule Take 1 capsule (500 mg total) by mouth daily. oxybutynin XL (DITROPAN-XL) 10 MG 24 hr tablet Take 1 tablet (10 mg total) by mouth 2 (two) times daily. 05/12/2023 vitamin D2, ergocalciferol, (DRISDOL) 1.25 mg capsule Take 1 capsule (1.25 mg total) by mouth. documented as of this encounter Plan of Treatment Not on file documented as of this encounter Procedures Procedure Name Priority Date/Time Associated Diagnosis Comments XR KNEE KEKE 3V Routine 02/03/2024 2:55 PM CDT Primary osteoarthritis of right knee Primary osteoarthritis of left knee XR KNEE STAND AP KEKE ONLY Routine 02/03/2024 2:55 PM CDT Primary osteoarthritis of right knee Primary osteoarthritis of left knee documented in this encounter Results * XR KNEE STAND AP KEKE ONLY (02/03/2024 2:55 PM CDT) Anatomical Region Laterality Modality Knee Radiographic Kathleen ging 02/03/2024 5:55 PM CDT Impressions 02/03/2024 5:57 PM CDT IMPRESSION: 1) Bilateral severe degenerative changes with marked narrowing of the medial compartments with mild varus worse in the right knee. There is perhaps mild progression of degenerative changes. 2. No acute bony abnormalities. Ordered By: CONRAD MO Interpreted By: Aaron Weller MD, 02/03/2024 5:55 PM Narrative 02/03/2024 5:57 PM CDT Examination: XR KNEE KEKE 3V, XR KNEE STAND AP KEKE ONLY Exam time: 02/03/2024 2:52 PM Clinical history: Bilateral knee pain. The symptoms are worse on the right. Comparison: Prior radiographs are from April 2023. Technique: 3 views of the right and left knee and bilateral weightbearing radiographs. Findings: Right knee: Severe degenerative changes especially in the medial compartment with mild varus deformity. Chronic calcifications along the medial aspect of the medial femoral condyle. There are also severe degenerative changes in the anterior joint. Surrounding soft tissues of unremarkable. Left knee: There are also advanced degenerative changes worse in the medial compartment with mild varus. No acute bony abnormalities. There are also at least moderate degenerative changes in the anterior joint. Surrounding soft tissues of unremarkable. Procedure Note Aaron Weller MD - 02/03/2024 Examination: XR KNEE KEKE 3V, XR KNEE STAND AP KEKE ONLY Exam time: 02/03/2024 2:52 PM Clinical history: Bilateral knee pain. The symptoms are worse on theright. Comparison: Prior radiographs are from April 2023. Technique: 3 views of the right and left knee and bilateral weightbearingradiographs. Findings: Right knee: Severe degenerative changes especially in the medialcompartment with mild varus deformity. Chronic calcifications along themedial aspect of the medial femoral condyle. There are also severedegenerative changes in the anterior joint. Surrounding soft tissues ofunremarkable. Left knee: There are also advanced degenerative changes worse in themedial compartment with mild varus. No acute bony abnormalities. There arealso at least moderate degenerative changes in the anterior joint.Surrounding soft tissues of unremarkable. IMPRESSION: 1) Bilateral severe degenerative changes with marked narrowing of themedial compartments with mild varus worse in the right knee. There isperhaps mild progression of degenerative changes. 2. No acute bony abnormalities. Ordered By: CONRAD MO Interpreted By: Aaron Weller MD, 02/03/2024 5:55 PM us Conrad Mo SYSTEM ARCHIVE ANALYST-BC GENERAL IMAGING Final Resu lt * XR KNEE KEKE 3V (02/03/2024 2:55 PM CDT) Anatomical Region Laterality Modality Knee Radiographic Kathleen ging 02/03/2024 5:55 PM CDT Impressions 02/03/2024 5:57 PM CDT IMPRESSION: 1) Bilateral severe degenerative changes with marked narrowing of the medial compartments with mild varus worse in the right knee. There is perhaps mild progression of degenerative changes. 2. No acute bony abnormalities. Ordered By: CONRAD MO Interpreted By: Aaron Weller MD, 02/03/2024 5:55 PM Narrative 02/03/2024 5:57 PM CDT Examination: XR KNEE KEKE 3V, XR KNEE STAND AP KEKE ONLY Exam time: 02/03/2024 2:52 PM Clinical history: Bilateral knee pain. The symptoms are worse on the right. Comparison: Prior radiographs are from April 2023. Technique: 3 views of the right and left knee and bilateral weightbearing radiographs. Findings: Right knee: Severe degenerative changes especially in the medial compartment with mild varus deformity. Chronic calcifications along the medial aspect of the medial femoral condyle. There are also severe degenerative changes in the anterior joint. Surrounding soft tissues of unremarkable. Left knee: There are also advanced degenerative changes worse in the medial compartment with mild varus. No acute bony abnormalities. There are also at least moderate degenerative changes in the anterior joint. Surrounding soft tissues of unremarkable. Procedure Note Aaron Weller MD - 02/03/2024 Examination: XR KNEE KEKE 3V, XR KNEE STAND AP KEKE ONLY Exam time: 02/03/2024 2:52 PM Clinical history: Bilateral knee pain. The symptoms are worse on theright. Comparison: Prior radiographs are from April 2023. Technique: 3 views of the right and left knee and bilateral weightbearingradiographs. Findings: Right knee: Severe degenerative changes especially in the medialcompartment with mild varus deformity. Chronic calcifications along themedial aspect of the medial femoral condyle. There are also severedegenerative changes in the anterior joint. Surrounding soft tissues ofunremarkable. Left knee: There are also advanced degenerative changes worse in themedial compartment with mild varus. No acute bony abnormalities. There arealso at least moderate degenerative changes in the anterior joint.Surrounding soft tissues of unremarkable. IMPRESSION: 1) Bilateral severe degenerative changes with marked narrowing of themedial compartments with mild varus worse in the right knee. There isperhaps mild progression of degenerative changes. 2. No acute bony abnormalities. Ordered By: CONRAD MO Interpreted By: Aaron Weller MD, 02/03/2024 5:55 PM us Conrad Mo SYSTEM ARCHIVE ANALYST-BC GENERAL IMAGING Final Resu lt documented in this encounter Visit Diagnoses Diagnosis Primary osteoarthritis of right knee Primary localized osteoarthrosis, lower leg Primary osteoarthritis of left knee Primary localized osteoarthrosis, lower leg documented in this encounter Care Teams Assembler Truck Trailer Relationship Specialty Start Date End Date Tushar West MD [address] [place] [address] PCP - General INTERNAL MEDICINE 11/21/19 Nas Arndt MD [address] [place] [address] Consulting Physician INTERNAL MEDICINE 09/13/22 Pascual Mccullough MD [address] [place] [address] ORTHOPAEDIC SURGERY 09/13/22 documented as of this encounter
--- OUTSIDE RECORDS SUMMARY | 2024-07-15 23:56 | XMS_ITS | Encounter Summary ---
Author Organization [facility] Address [facility] [place] [address] [place] [address] Care Team Providers Care Tentering Machine Feeder Name Role Phone Tushar West MD Primary Care Provider [phone] Nas Arndt MD Unavailable Pascual Mccullough MD Unavailable [phone] Reason for Visit * Reason Comments Edema * Physical Therapy (Routine) - Closed Specialty Diagnoses / Procedures Referred By Contrenato schwartz Referred To Contact [facility] Physical Therapy Diagnoses Lipedema Lymphedema of left lower extremity Procedures OFFICE/OUTPT VISIT,NEW,LEVL III OFFICE/OUTPT VISIT,NEW,LEVL IV OFFICE/OUTPT VISIT,NEW,LEVL V OFFICE/OUTPT VISIT,EST,LEVL III OFFICE/OUTPT VISIT,EST,LEVL IV OFFICE/OUTPT VISIT,EST,LEVL V Mariola Mo, MECHANICAL INTEGRITY SPECIALIST-BC [address] [facility] [place] [address] Phone: tel: fax: [facility] [address] [place] [address] Phone: tel: fax: Referral ID Status Reason Start Date Expiration Date Visits Re quested Visits Authorized [id number] Closed 09/06/2022 10/06/2023 30 30 Encounter Details Date Type Department Care Team (Late st Contact Info) Description 10/14/2022 3:29 PM CDT - 10/14/2022 11:59 PM CDT Hospital Encounter [facility] [address] [place] [address] Mariola Mo, [facility] [address] [facility] [place] [id number] Nia Hale, RADIOGRAPHER TECHNOLOGIST Edema Discharge Disposition: Home or Self Care [...] on file 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 08/31/2022 [id number]-iydwykwfb-[id number] nc 333-133-5 MG Tab Take 1 tablet [...] daily. 4 traMADol (ULTRAM) 50 MG tabletIndications:Ac [place] Pain < 3 Day Supply Take 1 tablet (50 mg total) by mouth every 6 (six) hours as needed for Pain. Indications: Acute Pain < 3 Day Supply 10 tablet 10/05/2022 3 documented as of this encounter Progress Notes * Ania Awan, PT - 10/14/2022 3:45 PM CDTEncounter addended by: Ania Awan, PT on: 10/14/2022 7:26 PM Actions taken: Visit diagnoses modified * Ania Awan, PT - 10/14/2022 3:45 PM CDTEncounter addended by: Ania Awan, PT on: 10/15/2022 6:55 AM Actions taken: Clinical Note Signed * Ania Awan, PT - 10/14/2022 3:45 PM CDT PHYSICAL THERAPY TREATMENT NOTE Time In: 1545 Time Out: 1640 Total Time: 55 minutes Name: Olga Kong : 1965 Past Medical History: Diagnosis Date ??? Allergies ??? Anxiety ??? Depression ??? Hypertension ??? Lipedema ??? Lymphedema ??? Neuropathy ??? Obesity ??? Sleep apnea ??? Urinary bladder incontinence Past Surgical History: Procedure Laterality Date ??? SECTION, CLASSIC ??? HYSTERECTOMY Subjective: Diagnosis:Secondary LLE Lymphedema/ B Lipidemia Referring Physician: DONNA Su Onset Date: Chronic-Childhood Treatment Day: 9 Total Approved Visits: 20 Therapy Plan of Care: 5x/week with decreasing frequency as patient becomes more independent with self-MLD and applying SS bandaging. Return to MD: As needed Subjective Note: Pt states that she has been performing her self MLD and wrapping at home. Pt has no new complaints pre treatment. Pt has previously reported improved tenderness in her LLE since starting treatments. She is still unable to don a closed back shoe at this time. Location of Pain: BLEs Pre-treatment Pain: 0/10 Post-treatment Pain: 0/10 Restriction/Precaution: No short neck sequence unable to tolerate prone Objective: LE Circumference Right Left 10/15/22 Left Eval 09/16/22 MTPs 24.5 cm 25 25 cm Dorsum Of Foot 25 cm 26 26 cm Lat Malleoli 1 30.5 cm 31 31.5 cm 2 31 37.5 38 3 37.5 43.5 44 4 47 49 50 5 54 54 54 6 57 58.5 60.5 7 64 64 65.5 8 68 67 68 9 68.5 67 68 10 67 68 69 11 66 77 78.5 12 75.5 80 81 13 82 82 90 14 90 92 100.5 Trunk 170 cm 170 cm Treatment Performed: Therapeutic Exercise - 70282 Minutes Performed: Intervention: Manual Therapy - 45361 Minutes Performed: 45 minutes Intervention: -Opened left inguinal lymph nodes, followed by MLD down L LE in recumbent -SS multi-layered wrap applied to LLE following MLD -stockinette H-rosidal soft H-6in artiflex H-2 kidney foam -8cm, 10cm, 12cm SS bandage Neuromuscular Reeducation - 75854 Minutes Performed: Intervention: Therapeutic Activities - 41484 Minutes Performed: 10 minutes -Measurement of L LE and trunk for garments H-Self-MLD H- Measuring for garments and pump trial Modalities Minutes Performed: Intervention: Total Treatment Time: 55 minutes Education Performed: ASSESSMENT: Ms. Kong has completed 4 weeks of conservative treatment for her secondary LLE lymphedema due to trauma to her LLE as well as lipidemia. She has been elevating, performing a home exercise program, using compression bandaging system, and self-MLD over the past 4 weeks. Despite an objective improvement in her lymphedema measurements, she continues to have tissue sensitivity, hyperpigmentation, difficulty wearing normal clothing, and continued used of an AD due to decreased endurance of her LLE. She would greatly benefit from an entre pump by [facility] for further management of her secondary lymphedema in her LLE to return to her baseline mobility and independence. PLAN: Pt will complete one more visit in POC for further education on HEP, review of self-MLD, and wrapping. ?? GOALS: ?? 1. Patient will understand lymphedema precautions to decrease the risk of infection and acerbation of lymphedema in left lower leg after first week of treatment. MET ?? 2. Patient will develop tolerance for wearing short-strethc multi-layered bandaging between treatments for up to 22 of 24 hours a day after one week of treatment. MET ?? 3. Patient and spouse will be independent with short-stretch compression bandaging for continued volume reduction and prevention of re-accumulation of edema fluid in two weeks. MET ?? 4. Patient will be independent with donning and doffing of compression garments which will enable regular daily garment wear. PROGRESSING ?? 5. Patient will achieve maximum lymphedema reduction to enable functional improvements such as fitting in to closed back shoes, start size clothing, improved balance and mobility. PROGRESSING documented in this encounter Plan of Treatment Not on file documented as of this encounter Visit Diagnoses Diagnosis Lipedema- Primary Lymphedema of left leg Other lymphedema documented in this encounter Care Teams Tentering Machine Feeder Relationship Specialty Start Date End Date Tushar West MD [address] [place] [id number] PCP - General INTERNAL MEDICINE 11/21/19 Nas Arndt MD [address] [place] [address] Consulting Physician INTERNAL MEDICINE 09/13/22 Pascual Mccullough MD [address] [place] [address] [place] [address] ORTHOPAEDIC SURGERY 09/13/22 documented as of this encounter
--- OUTSIDE RECORDS SUMMARY | 2024-07-15 23:56 | XMS_ITS | Encounter Summary ---
Author Organization [facility] Address [facility] [facility] [place] [address] [place] [address] Care Team Providers Care Straightener Hand Name Role Phone Tushar West MD Primary Care Provider [phone] Nas Arndt MD Unavailable Pascual Mccullough MD Unavailable [phone] Reason for Visit * Reason Comments Injection BILATERAL Knee Encounter Details Date Type Department Care Team (Late st Contact Info) Description 02/03/2024 2:15 PM CDT Office Visit [facility] [address] [address] Mariola Mo, [facility]- [address] [facility] [place] [address] Injection (BILATERAL Knee) Social History Tobacco Use Types Packs/Day Years [...] on file 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 Gender Identity Not on file Sexual Orientation Not on file documented as of this encounter Last Filed Vital Signs Vital Sign Reading Time Taken Comments Blood Pressure - - Pulse - - Temperature - - Respiratory Rate - - Oxygen Saturation - - Inhaled Oxygen Concentration - - Weight 172.4 kg (380 lb) 02/03/2024 2:12 PM CDT Height 162.6 cm (5' 4 ) 02/03/2024 2:12 PM CDT Body Mass Index 65.23 02/03/2024 2:12 PM CDT documented in this encounter Functional [...] Progress Notes * Pearl Molina MA - 02/03/2024 2:15 PM CDT Olga is a 58-year-old female who presents for Injection (BILATERAL Knee) Patient presents to clinic today for BILATERAL knee injections. Patient reports pain to the lateralaspect of BILATERAL knees. She reports swelling and tingling in her lower legs. She reports pain worsens when standing for periods of time. She reports night pain. She takes Ibuprofen for pain. She does not use ice or heat. She uses rolling walker to ambulate. Patient last had BILATERAL knee injections on 10/06/2023 with good relief for 3 months. She denies any prior surgeries to BILATERAL knees.She is retired. No additional nursing task documentation needed. Vitals: 02/03/24 1412 Weight: (!) 172.4 kg (380 lb) Height: 1.626 m (5' 4 ) Current Outpatient Medications Medication Sig albuterol sulfate HFA 108 (90 Base) MCG/ACT inhaler inhale 1 to 2 puffs by mouth every 4 hours as needed aspirin 81 MG chewable tablet Chew 1 tablet (81 mg total) by mouth daily. busPIRone (BUSPAR) 10 MG tablet Take 1 tablet (10 mg total) by mouth 3 (three) times daily. vijahkq-tnflrrhrk-liqd 333-133-5 MG Tab Take 1 tablet by [...] Patient has no known allergies. [x] Total Lkzz-sf-Wgqh Assessment Time: 0-15 minutes Additional Contributory Factors NONE * Mariola Mo, CYLINDER PRESS OPERATOR HELPER-BC - 02/03/2024 2:15 PM CDT Images from the original note were not included. Chief Complaint: Injection (BILATERAL Knee) History of Present Illness: Olga Kong is a 58-year-old female who presents to the office for Injection (BILATERAL Knee) Patient presents to clinic today for BILATERAL knee injections. Patient reports pain to the lateralaspect of BILATERAL knees. She reports swelling and tingling in her lower legs. She reports pain worsens when standing for periods of time. She reports night pain. She takes Ibuprofen for pain. She does not use ice or heat. She uses rolling walker to ambulate. Patient last had BILATERAL knee injections on 10/06/2023 with good relief for 3 months. She denies any prior surgeries to BILATERAL knees.She is retired. ROS: See HPI for pertinent positives Problem List: Patient Active Problem List Diagnosis Elevated CO2 level Respiratory failure ([facility]) Primary osteoarthritis of right knee Lymphedema of right lower extremity Lipedema Lymphedema Class 3 severe obesity due to excess calories without serious comorbidity with body mass index (BMI) of 60.0 to 69.9 in adult ([facility] HHS/HCC) Primary osteoarthritis of left knee History: [...] mouth 3 (three) times daily., Disp:, Rfl: uvgtame-ieyaxgwgc-vnff 333-133-5 MG Tab, Take 1 tablet by [...] 80 mg, 80 mg, Other, Once, VILMA Mi-SRIRAM Allergies: Review of patient's allergies indicates: No Known Allergies Objective: There were no vitals filed for this visit. Vitals Height: 162.6 cm (5' 4 ) Weight: (!) 172.4 kg (380 lb) BMI (Calculated): (!) 65.19 Physical exam: Constitutional: Alert and in no acute distress. Neurological: The patient was oriented to person, place, and time. Eyes: The sclera and conjunctiva were normal ENT: Hearing was normal. Neck: The appearance of the neck was normal. Cardiovascular: Normal pulses. Pulmonary: No respiratory distress. Skin: No injuries or skin lesion. Musculoskeletal: EXAM of BILATERAL knees today reveals medial joint line tenderness with palpation,positive crepitus with palpation, no redness or warmth, minimal joint effusion, antalgic gait, range of motion RIGHT 3-95 LEFT 0-105, range of motion is restricted secondary to body habitus, neurovascularly intact. Diagnostic Imaging: XRAY of BILATERAL knees today reveals bone on bone medial compartment space narrowing osteoarthritis consistent with end stage osteoarthritis and no acute or healing bony injury or dislocation. Labs: ESR Date Value Ref Range Status [...] knee M17.12 OSTEOARTHRITIS OF LEFT KNEE JOINT methylPREDNISolone acetate (DEPO-Medrol) injection 80 mg lidocaine (XYLOCAINE) 1 % injection SOLN 8 mL Procedure: Procedure: Injection of the Knee Joint [...] procedure well. Complications: there were no complications. Follow-up: in the office prn. Plan: Reviewed imaging with patient in the office today. She has had good relief with her injections previously. She was given another injection to BILATERAL knees in the office today and tolerated well. She is aware that she may have injections every 3 months as needed for her pain. If she starts seeingless relief with the Depo-Medrol injections we can proceed with getting authorization for a viscussu pplementation. Activity as tolerated. She will follow up as needed for her knee pain. She will continue to work on weight loss. She will also continue with compressions to her lower extremities whichshe has made great progress with her lower leg swelling. Follow up: Return if symptoms worsen or [...] 8 mL, Other, Once, 1 dose, On Fri02/03/24 at 1530Indications:Primary osteoarthritis of left knee Given 02/03/2024 3:00 PM CDT 8 mLs Right Knee lidocaine (XYLOCAINE) 1 % injection SOLN 8 mL 8 mL, Other, Once, 1 dose, On Fri02/03/24 at 1530Indications:Primary osteoarthritis of right knee Given 02/03/2024 3:00 PM CDT 8 mLs Left Knee methylPREDNISolone acetate (DEPO-Medrol) injection 80 mg 80 mg, Other, Once, 1 dose, On Fri02/03/24 at 1530, Chris WellIndications:Primary osteoarthritis of left knee Given 02/03/2024 3:00 PM CDT 80 mg Right Knee methylPREDNISolone acetate (DEPO-Medrol) injection 80 mg 80 mg, Other, Once, 1 dose, On Fri02/03/24 at 1530, Chris WellIndications:Primary osteoarthritis of right knee Given 02/03/2024 3:00 PM CDT 80 mg Left Knee documented in this encounter Care Teams Straightener Hand Relationship Specialty Start Date End Date Tushar West MD [address] [place] [address] PCP - General INTERNAL MEDICINE 11/21/19 Nas Arndt MD [address] [place] [address] Consulting Physician INTERNAL MEDICINE 09/13/22 Pascual Mccullough MD [address] [facility] [place] [address] ORTHOPAEDIC SURGERY 09/13/22 documented as of this encounter
--- OUTSIDE RECORDS SUMMARY | 2024-07-15 23:56 | XMS_ITS | Encounter Summary ---
Author Organization [facility] Address [facility] 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 No / Unsure 12/10/2022 8:50 AM CDT documented as of this encounter Functional [...] on filedocumented in this encounter Care Teams Horticulture Supervisor Relationship Specialty Start Date End Date Tushar West MD [address] [place] [address] PCP - General INTERNAL MEDICINE 11/21/19 Nas Arndt MD [address] [place] [address] Consulting Physician INTERNAL MEDICINE 09/13/22 Pascual Mccullough MD [address] [place] [address] ORTHOPAEDIC SURGERY 09/13/22 documented as of this encounter
--- OUTSIDE RECORDS SUMMARY | 2024-07-15 23:56 | XMS_ITS | Encounter Summary ---
Author Organization [facility] Address [facility]6 [facility] 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
--- OUTSIDE RECORDS SUMMARY | 2024-07-15 23:56 | XMS_ITS | Encounter Summary ---
Author Organization [facility] Address [facility]6 [facility] 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
--- OUTSIDE RECORDS SUMMARY | 2024-07-15 23:56 | XMS_ITS | Encounter Summary ---
Author Organization [facility] Address [facility]6 [facility] 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
--- OUTSIDE RECORDS SUMMARY | 2024-07-15 23:56 | XMS_ITS | Encounter Summary ---
Author Organization [facility] Address [facility]6 [facility] 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
--- OUTSIDE RECORDS SUMMARY | 2024-07-15 23:56 | XMS_ITS | Encounter Summary ---
Author Organization [facility] Address [facility]6 [facility] [address] [place] [address] Care Team Providers Care Customer Business Manager Name Role Phone Tushar West MD Primary Care Provider [phone] Nas Arndt MD Unavailable Pascual Mccullough MD Unavailable [phone] Encounter Details Date Type Department Care Team (Late st Contact Info) Description 02/03/2024 Orders Only [facility] [address] [address] Conrad Mo, [facility]- [address] 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 Gender Identity Not on file Sexual [...] of this encounter Results * XR KNEE STAND [...] MD, 02/03/2024 5:55 PM us Conrad Mo LEARNING SUPPORT TEACHER-BC GENERAL IMAGING Final Resu lt * XR [...] MD, 02/03/2024 5:55 PM us Conrad Mo LEARNING SUPPORT TEACHER-BC GENERAL IMAGING Final Resu lt documented in this encounter Visit Diagnoses Diagnosis Primary osteoarthritis of right knee- Primary Primary localized osteoarthrosis, lower leg Primary osteoarthritis of left knee Primary localized osteoarthrosis, lower leg Primary osteoarthritis of right knee Primary localized osteoarthrosis, lower leg Primary osteoarthritis of left knee Primary localized osteoarthrosis, lower leg documented in this encounter Care Teams Customer Business Manager Relationship Specialty Start Date End Date Tushar West MD [address] [place] [address] PCP - General INTERNAL MEDICINE 11/21/19 Nas Arndt MD [address] [place] [address] Consulting Physician INTERNAL MEDICINE 09/13/22 Pascual Mccullough MD [address] [facility] [place] [address] ORTHOPAEDIC SURGERY 09/13/22 documented as of this encounter
--- OUTSIDE RECORDS SUMMARY | 2024-07-15 23:56 | XMS_ITS | Encounter Summary ---
Author Organization [facility] Address [facility]6 [facility] [place] [address] [place] [address] Care Team Providers Care Propagator Name Role Phone Tushar West MD Primary Care Provider [phone] Nas Arndt MD Unavailable Pascual Mccullough MD Unavailable [phone] Reason for Referral * Consultation (Routine) - Authorized Specialty Diagnoses / Procedures Referred By Contac t Referred To Contact Diagnoses Primary osteoarthritis of left knee Primary osteoarthritis of right knee Procedures OFFICE/OUTPATIENT MARIAJOSE LOW MDM 30-44 MINUTES OFFICE/OUTPT VISIT,NEW,LEVL IV OFFICE/OUTPT VISIT,NEW,LEVL V OFFICE/OUTPT VISIT,EST,LEVL III OFFICE/OUTPT VISIT,EST,LEVL IV OFFICE/OUTPT VISIT,EST,LEVL V Mariola Mo, SQUEEGEE TENDER- [address] [place] [address] Phone: tel: fax: [facility] [address], [address] [address] Phone: tel: fax: Referral ID Status Reason Start Date Expiration Date V isits Requested Visits Authorized [id number] Authorized 05/15/2024 05/14/2025 1 1 Scheduling Instructions Please authorize patient for BILATERAL EUFLEXXA injections S AND LEASING AGENT Reason for Visit * Reason Comments Knee Pain BILATERAL Encounter Details Date Type Department Care Team (Late st Contact Info) Description 05/14/2024 10:00 AM SALES AND LEASING AGENT Office Visit [facility] [address] [facility] 1 [place] [address] Mariola Mo FNP-BC [address] [facility] [place] [address] Knee Pain (BILATERAL) Social History Tobacco Use [...] on file Legal Sex Female 5:52 PM SALES AND LEASING AGENT Gender Identity Not on file Sexual Orientation Not on file documented as of this encounter Last Filed Vital Signs Vital Sign Reading Time Taken Comments Blood Pressure - - Pulse - - Temperature - - Respiratory Rate - - Oxygen Saturation - - Inhaled Oxygen Concentration - - Weight 176.9 kg (390 lb) 05/14/2024 10:03 AM SALES AND LEASING AGENT Height 165.1 cm (5' 5 ) 05/14/2024 10:03 AM SALES AND LEASING AGENT Body Mass Index 64.9 05/14/2024 10:03 AM SALES AND LEASING AGENT documented in this encounter Functional Status * [...] Progress Notes * Maribell Kolb MA - 05/14/2024 10:00 AM CST Olga is a 59-year-old female who presents for Knee Pain (BILATERAL) Patient in clinic today for BILATERAL knee injections. Patient reports pain to lateral aspect of BILATERAL knees. She reports tingling and swelling in lower legs. She reports pain is worse when walking or prolonged standing. She reports night pain. She takes Ibuprofen PRN. She does not use ice or heat. She states RIGHT knee pain is worse and she has a knot on her RIGHT knee. She had last injection BILATERAL knee on 02/03/2024 and has had good relief for 6 weeks. She uses a rolling walker and wheelchair. No additional nursing task documentation needed. Vitals: 05/14/24 1003 Weight: (!) 176.9 kg (390 lb) Height: [...] total) by mouth 3 (three) times daily. zzcrbnk-svmuwahhr-pgtf 333-133-5 MG Tab Take 1 tablet by [...] Patient has no known allergies. [x] Total Uivh-xh-Fdvz Assessment Time: 0-15 minutes Additional Contributory Factors NONE S AND LEASING AGENT * Mariola Mo, SQUEEGEE TENDER-BC - 05/14/2024 10:00 AM CST Images from the original note were not included. Chief Complaint: Knee Pain (BILATERAL) History of Present Illness: Olga Kong is a 59-year-old female who presents to the office for Knee Pain (BILATERAL) Patient in clinic today for BILATERAL knee injections. Patient reports pain to lateral aspect of BILATERAL knees. She reports tingling and swelling in lower legs. She reports pain is worse when walking or prolonged standing. She reports night pain. She takes Ibuprofen PRN. She does not use ice or heat. She states RIGHT knee pain is worse and she has a knot on her RIGHT knee. She had last injection BILATERAL knee on 02/03/2024 and has had good relief for 6 weeks. She uses a rolling walker and wheelchair. ROS: See HPI for pertinent positives Problem List: Patient Active Problem List Diagnosis Elevated CO2 level Respiratory failure ([facility]/H[facility] HHS/HCC) Primary osteoarthritis of right knee Lymphedema of right lower extremity Lipedema Lymphedema Class 3 severe obesity due to excess calories without serious comorbidity with body mass index (BMI) of 60.0 to 69.9 in adult ([facility]) Primary osteoarthritis of left knee [...] mouth 3 (three) times daily., Disp:, Rfl: rplzcxl-wlnjpdwjd-idqs 333-133-5 MG Tab, Take 1 tablet by [...] mg, 80 mg, Other, Once, Mariola Mo, VILMA-BC Allergies: Review of patient's allergies indicates: No [...] Musculoskeletal: EXAM of BILATERAL knees today reveals diffuse tenderness with palpation to medial and lateral joint line, positive crepitus with movement, range of motion to LEFT near full extensionwith flexion to near 110 with RIGHT near full extension with flexion to 95, no groin pain with hip rotation BILATERALLY, no redness or warmth, BILATERAL lower leg lymphedema, palpable pedal pulses. Diagnostic Imaging: Labs: ESR Date Value Ref [...] (XYLOCAINE) 1 % injection SOLN 8 mL Ambulatory referral for Procedure 2. Primary osteoarthritis of right knee M17.11 OSTEOARTHRITIS OF RIGHT KNEE JOINT methylPREDNISolone acetate (DEPO-Medrol) injection 80 mg lidocaine (XYLOCAINE) 1 % injection SOLN 8 mL methylPREDNISolone acetate (DEPO-Medrol) injection 80 mg lidocaine (XYLOCAINE) 1 % injection SOLN 8 mL Ambulatory referral for Procedure Procedure: Procedure: Injection of the Knee Joint [...] complications. Follow-up: in the office prn. Plan: Patient only received short term relief with her last injection but had been very active since she has recently moved. I have recommended proceeding with another injection to BILATERAL knees that were given in the office today and tolerated well. Activity as tolerated. She will follow up in 2 weeksfor reevaluation. During that time I recommend proceeding with getting authorization for Euflexxa in hopes to assist with better pain control. Follow up: Return in 2 weeks (on 05/28/2024) for Injection Euflexxa . DONNA MI S AND LEASING AGENT documented in this encounter Plan of Treatment Scheduled Referrals Name Type Priority Associated Diagnoses Orde r Schedule Ambulatory referral for Procedure Referral Routine Primary osteoarthritis of left knee Primary osteoarthritis of right knee Ordered: 05/15/2024 documented as of this encounter Visit Diagnoses [...] 8 mL, Other, Once, 1 dose, On Fri05/14/24 at 1130Indications:Primary osteoarthritis of left knee,Primary osteoarthritis of right knee Given 05/14/2024 11:07 AM SALES AND LEASING AGENT 8 mLs Right Knee lidocaine (XYLOCAINE) 1 % injection SOLN 8 mL 8 mL, Other, Once, 1 dose, On Fri05/14/24 at 1130Indications:Primary osteoarthritis of left knee,Primary osteoarthritis of right knee Given 05/14/2024 11:07 AM SALES AND LEASING AGENT 8 mLs Left Knee methylPREDNISolone acetate (DEPO-Medrol) injection 80 mg 80 mg, Other, Once, 1 dose, On Fri05/14/24 at 1130, Shake WellIndications:Primary osteoarthritis of left knee,Primary osteoarthritis of right knee Given 05/14/2024 11:08 AM SALES AND LEASING AGENT 80 mg Right Knee methylPREDNISolone acetate (DEPO-Medrol) injection 80 mg 80 mg, Other, Once, 1 dose, On Fri05/14/24 at 1130, Shake WellIndications:Primary osteoarthritis of left knee,Primary osteoarthritis of right knee Given 05/14/2024 11:07 AM SALES AND LEASING AGENT 80 mg Left Knee documented in this encounter Care Teams Propagator Relationship Specialty Start Date End Date Tushar West MD [address] [place] [address] PCP - General INTERNAL MEDICINE 11/21/19 Nas Arndt MD [address] [place] [address] Consulting Physician INTERNAL MEDICINE 09/13/22 Pascual Mccullough MD [address] [facility] [place] [address] ORTHOPAEDIC SURGERY 09/13/22 documented as of this encounter
--- OUTSIDE RECORDS SUMMARY | 2024-07-15 23:56 | XMS_ITS | Encounter Summary ---
Author Organization [facility] Address [facility]6 [facility] 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
--- OUTSIDE RECORDS SUMMARY | 2024-07-15 23:56 | XMS_ITS | Encounter Summary ---
Author Organization [facility] Address [facility]6 [facility] [place] [address] [place] [address] Care Team Providers Care Director Of Claims Name Role Phone Tushar West MD Primary Care Provider [phone] Nas Arndt MD Unavailable Pascual Mccullough MD Unavailable [phone] Reason for Visit * Reason Onset Date Comments Appointment Request 10/06/2023 Encounter Details Date Type Department Care Team (Late st Contact Info) Description 10/06/2023 Telephone [facility] [address] [place] [address] Nas Arndt MD [address] 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
--- OUTSIDE RECORDS SUMMARY | 2024-07-15 23:56 | XMS_ITS | Encounter Summary ---
Author Organization [facility] Address [facility]6 [facility] 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 BOTTLE WASHER Gender Identity Not on file Sexual Orientation Not on file documented as of this encounter Last Filed Vital Signs Vital Sign Reading Time Taken Comments Blood Pressure - - Pulse - - Temperature - - Respiratory Rate - - Oxygen Saturation - - Inhaled Oxygen Concentration - - Weight 169.6 kg (374 lb) 10/06/2023 1:10 PM CDT Height 154.9 cm (5' 1 ) 10/06/2023 1:10 PM CDT Body Mass Index 70.67 10/06/2023 1:10 PM CDT documented in this encounter Functional [...] documented in this encounter Progress Notes * Priscilla Esposito MA - 10/06/2023 1:30 PM CDT Olga is a 58-year-old female who presents for Knee Pain (BILATERAL) Patient is being seen in the office today for BILATERAL knee pain. Patient locates the pain in the RIGHT knee on the lateral and posterior aspect of the knee and the LEFT is on the anterior and lateral aspect of the knee. Patient denies numbness and tingling. Patient is having issues with swelling in BILATERAL knees. Patient states everyday activity makes the pain worse. Patient states she does have night time pain that interrupts her sleep. Patient is using Tylenol and Ibuprofen for pain with little relief. Patient states her pain is a 10/10 today in the office. Patient does use a Rolator walker most of the time to help with ambulation. Patient has had injections on BILATERAL knees in the past that have helped about 75% for a couple months at a time. Patient is right hand dominant. No additional nursing task documentation needed. Vitals: 10/06/23 1310 Weight: (!) 169.6 kg (374 lb) Height: 1.549 m (5' 1 ) Current Outpatient Medications Medication Sig albuterol sulfate HFA 108 (90 Base) MCG/ACT inhaler inhale 1 to 2 puffs by mouth every 4 hours as needed aspirin 81 MG chewable tablet Chew 1 tablet (81 mg total) by mouth daily. busPIRone (BUSPAR) 10 MG tablet Take 1 tablet (10 mg total) by mouth 3 (three) times daily. xkszomj-gcqfwqccs-eahh 333-133-5 MG Tab Take 1 tablet by [...] Patient has no known allergies. [x] Total Oyyc-da-Xrwj Assessment Time: 0-15 minutes Additional Contributory Factors NONE * Mariola Mo, SAND SYSTEM OPERATOR-BC - 10/06/2023 1:30 PM CDT Chief Complaint: Knee Pain (BILATERAL) History of Present Illness: Olga Kong is a 58-year-old female who presents to the office for Knee Pain (BILATERAL) Patient is being seen in the office today for BILATERAL knee pain. Patient locates the pain in the RIGHT knee on the lateral and posterior aspect of the knee and the LEFT is on the anterior and lateral aspect of the knee. Patient denies numbness and tingling. Patient is having issues with swelling in BILATERAL knees. Patient states everyday activity makes the pain worse. Patient states she does have night time pain that interrupts her sleep. Patient is using Tylenol and Ibuprofen for pain with little relief. Patient states her pain is a 10/10 today in the office. Patient does use a Rolator walker most of the time to help with ambulation. Patient has had injections on BILATERAL knees in the p ast that have helped about 75% for a couple months at a time. Patient is right hand dominant. ROS: See HPI for pertinent positives Problem List: Patient Active Problem List Diagnosis Elevated CO2 level Respiratory failure ([facility]HCC) Primary osteoarthritis of right knee Lymphedema of right lower extremity Lipedema Lymphedema Class 3 severe obesity due to excess calories without serious comorbidity with body mass index (BMI) of 60.0 to 69.9 in adult ([facility]/HCC) Primary osteoarthritis of left knee History: [...] mouth 3 (three) times daily., Disp:, Rfl: mylzhqb-lqrahwipz-zver 333-133-5 MG Tab, Take 1 tablet by [...] SOLN 8 mL, 8 mL, Other, Once, DONNA Mi methylPREDNISolone acetate (DEPO-Medrol) injection 80 mg, 80 mg, Other, Once, VILMA Mi-SRIRAM Review of patient's allergies indicates: No Known Allergies Objective: Body mass index is 70.67 kg/m??. Last Recorded Weight 10/06/23 1310 Weight: (!) 169.6 kg (374 lb) Physical [...] reveals medial joint line tenderness with palpation,positive crepitus, no groin pain with hip rotation, antalgic gait, range of motion to right lacking3 degrees full extension with flexion to 90 and left lacking 3 degrees full extension with flexion to near 110, range of motion restricted due to pain and body habitus, palpable pedal pulses. Procedure: Procedure: Injection of the Knee Joint [...] 1 % injection SOLN 8 mL Plan: Patient has had previous injections to bilateral knees with good relief in her symptoms. She will continue to work on weight loss while keeping her activities to maintain her range of motion. She wasgiven bilateral knee injections in the office today and tolerated well. Activity as tolerated. She is aware that she may receive injections every 3 months as needed for pain. She will follow-up as needed. Follow up: Return if symptoms worsen or [...] 8 mL, Other, Once, 1 dose, On Fri10/06/23 at 1400Indications:Primary osteoarthritis of left knee Given 10/06/2023 1:37 PM CDT 8 mLs Left Knee lidocaine (XYLOCAINE) 1 % injection SOLN 8 mL 8 mL, Other, Once, 1 dose, On Fri10/06/23 at 1400Indications:Primary osteoarthritis of right knee Given 10/06/2023 1:36 PM CDT 8 mLs Right Knee methylPREDNISolone acetate (DEPO-Medrol) injection 80 mg 80 mg, Other, Once, 1 dose, On Fri10/06/23 at 1400, Randyke WellIndications:Primary osteoarthritis of left knee Given 10/06/2023 1:37 PM CDT 80 mg Left Knee methylPREDNISolone acetate (DEPO-Medrol) injection 80 mg 80 mg, Other, Once, 1 dose, On Fri10/06/23 at 1400, Shachris WellIndications:Primary osteoarthritis of right knee Given 10/06/2023 1:35 PM CDT 80 mg Right Knee documented in this encounter Care Teams Restaurant Cashier Relationship Specialty Start Date End Date Tushar West MD [address] [place] [address] PCP - General INTERNAL MEDICINE 11/21/19 Nas Arndt MD [address] [place] [address] Consulting Physician INTERNAL MEDICINE 09/13/22 Pascual Mccullough MD [address] [place] [address] ORTHOPAEDIC SURGERY 09/13/22 documented as of this encounter
--- OUTSIDE RECORDS SUMMARY | 2024-07-15 23:56 | XMS_ITS | Encounter Summary ---
Author Organization [facility] Address [facility]6 [facility] 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
--- OUTSIDE RECORDS SUMMARY | 2024-07-15 23:56 | XMS_ITS | Encounter Summary ---
Author Organization [facility] Address [facility]6 [facility] [place] [address] [place] [address] Care Team Providers Care Marketing Program Manager Name Role Phone Tushar West MD Primary Care Provider [phone] Nas Arndt MD Unavailable Pascual Mccullough MD Unavailable [phone] Encounter Details Date Type Department Care Team (Latest Contact Info) Description 10/14/2022 Travel Social History Tobacco Use Types Packs/Day [...] on file Legal Sex Female 5:52 PM PATIENT MANAGER Gender Identity Not on file Sexual [...] on filedocumented in this encounter Care Teams Marketing Program Manager Relationship Specialty Start Date End Date Tushar West MD [address] [place] [address] PCP - General INTERNAL MEDICINE 11/21/19 Nas Arndt MD [address] [place] [address] Consulting Physician INTERNAL MEDICINE 09/13/22 Pascual Mccullough MD [address] [place] [address] ORTHOPAEDIC SURGERY 09/13/22 documented as of this encounter
--- OUTSIDE RECORDS SUMMARY | 2024-07-15 23:56 | XMS_ITS | Encounter Summary ---
Author Organization [facility] Address [facility]6 [facility] [place] [address] [place] [address] Care Team Providers Care Instrument Maintenance Supervisor Name Role Phone Tushar West MD Primary Care Provider [phone] Nas Arndt MD Unavailable Pascual Mccullough MD Unavailable [phone] Reason for Visit * Reason Comments Edema * Physical Therapy (Routine) - Closed Specialty Diagnoses / Procedures Referred By Contrenato schwartz Referred To Contact [facility] Physical Therapy Diagnoses Lipedema Lymphedema of left lower extremity Procedures OFFICE/OUTPT VISIT,NEW,LEVL III OFFICE/OUTPT VISIT,NEW,LEVL IV OFFICE/OUTPT VISIT,NEW,LEVL V OFFICE/OUTPT VISIT,EST,LEVL III OFFICE/OUTPT VISIT,EST,LEVL IV OFFICE/OUTPT VISIT,EST,LEVL V Mariola Mo, MECHANICAL OXIDIZER-BC [address] [facility] [place] [address] Phone: tel: fax: [facility] [address] [place] [address] Phone: tel: fax: Referral ID Status Reason Start Date Expiration Date Visits Re quested Visits Authorized [id number] Closed 09/06/2022 10/06/2023 30 30 Encounter Details Date Type Department Care Team (Late st Contact Info) Description 09/30/2022 2:25 PM CDT - 09/30/2022 11:59 PM CDT Hospital Encounter [facility] [address] [place] [address] Mariola Mo, [facility]- [address] [place] [address] Nia Hale, PLATING TANK OPERATOR Edema Discharge Disposition: Home or Self Care [...] on file Legal Sex Female 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 Gender Identity Not on file Sexual [...] this encounter Progress Notes * Nia Hale, PLATING TANK OPERATOR - 09/30/2022 2:30 PM CDT PHYSICAL THERAPY TREATMENT NOTE Time [...] VILMA Su-BC Onset Date: Chronic-Childhood Treatment Day: 7 Total [...] prone Objective: Treatment Performed: Therapeutic Exercise - 69522 Minutes Performed: Intervention: Manual Therapy - 78416 Minutes Performed: 55 minutes Intervention: -Opened left inguinal lymph nodes, followed by MLD down L LE in recumbent -SS multi-layered wrap applied to LLE following MLD -stockinelisae H-rosidal soft H-6in artiflex H-2 kidney foam -8cm, 10cm, 12cm SS bandage Neuromuscular Reeducation - 37640 Minutes Performed: Intervention: Therapeutic Activities - 89289 Minutes Performed: 0 -Pt educated on a [...] able to tolerate it. ASSESSMENT: Note: Pt tolerated treatment well this date without any adverse reactions with MLD and denies any pain throughout. Pt continues to present with decrease in edema post MLD. SS bandaging applied post MLD to promote the continuation of lymphatic drainage from the manual therapy. PLAN: Plan for next visit: MLD with [...] lymphedema documented in this encounter Care Teams Instrument Maintenance Supervisor Relationship Specialty Start Date End Date Tushar West MD [address] [place] [address] PCP - General INTERNAL MEDICINE 11/21/19 Nas Arndt MD [address] [place] [address] Consulting Physician INTERNAL MEDICINE 09/13/22 Pascual Mccullough MD [address] [place] [address] ORTHOPAEDIC SURGERY 09/13/22 documented as of this encounter
--- OUTSIDE RECORDS SUMMARY | 2024-07-15 23:57 | XMS_ITS | Encounter Summary ---
Author Organization [facility] Address [facility]6 [facility] [place] [address] [place] [address] Care Team Providers Care Gas Distribution Plant Operator Name Role Phone Tushar West MD Primary Care Provider [phone] Nas Arndt MD Unavailable Pascual Mccullough MD Unavailable [phone] Reason for Visit * Reason Onset Date Comments Hospital Follow Up 03/15/2020 Encounter Details Date Type Department Care Team (Late st Contact Info) Description 03/15/2020 Hospital Follow-up Call [facility] [address] [place] [address] Wilbur Huber, RN Hospital Follow Up Social History Tobacco Use Types [...] on file Legal Sex Female 5:52 PM VACATION PLANNER Gender Identity Not on file Sexual Orientation Not on file COVID-19 Exposure Response Date Recorded In the last month, have you been in contact with someone who was confirmed or suspected to have Coronavirus / COVID-19? Yes 02/29/2020 10:11 AM CDT documented as of this encounter [...] Diagnoses Not on filedocumented in this encounter Additional Health Concerns Infection Onset Date Last Indicated Resolved Time COVID-19 Confirmed 02/29/2020 02/29/2020 0 12:33 AM CDT documented as of this encounter Care Teams Gas Distribution Plant Operator Relationship Specialty Start Date End Date Tushar West MD [address] [place] [address] PCP - General INTERNAL MEDICINE 11/21/19 Nas Arndt MD [address] [place] [address] Consulting Physician INTERNAL MEDICINE 09/13/22 Pascual Mccullough MD [address] [facility] [place] [address] ORTHOPAEDIC SURGERY 09/13/22 documented as of this encounter
--- OUTSIDE RECORDS SUMMARY | 2024-07-15 23:57 | XMS_ITS | Encounter Summary ---
Author Organization [facility] Address [facility]6 [facility] [place] [address] [place] [address] Care Team Providers Care Senior Program Analyst Name Role Phone Tushar West MD Primary Care Provider [phone] Nas Arndt MD Unavailable Pascual Mccullough MD Unavailable [phone] Reason for Visit * Reason Onset Date Comments Appointment Reminder 09/13/2022 Encounter Details Date Type Department Care Team (Late st Contact Info) Description 09/13/2022 Telephone [facility] [address] [place] [address] Nas Arndt MD [address] 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 No / Unsure 09/06/2022 9:56 AM V BELT MOLD ASSEMBLER AND CURER documented as of this encounter Functional Status [...] documented in this encounter Progress Notes * Lorena Vicente LPN - 09/13/2022 8:44 AM CST Sissy may/Dr Mccullough request an appointment to [facility] care for Lymphedema Lipedema . Scheduled To se Dr Arndt October 01, 2022 [facility] Reminder letter mailed with BIO card Thanked Sissy for the referral V BELT MOLD ASSEMBLER AND CURER documented in this encounter Plan of Treatment Not on file documented as of this encounter Visit Diagnoses Not on filedocumented in this encounter Care Teams Senior Program Analyst Relationship Specialty Start Date End Date Tushar West MD [address] [place] [address] PCP - General INTERNAL MEDICINE 11/21/19 Nas Arndt MD [address] [place] [address] Consulting Physician INTERNAL MEDICINE 09/13/22 Pascual Mccullough MD [address] [place] [address] ORTHOPAEDIC SURGERY 09/13/22 documented as of this encounter
--- OUTSIDE RECORDS SUMMARY | 2024-07-15 23:57 | XMS_ITS | Encounter Summary ---
Author Organization [facility] Address [facility]6 [facility] [place] [address] [place] [address] Care Team Providers Care Animal Anatomy Teacher Name Role Phone Tushar West MD Primary Care Provider [phone] Encounter Details Date Type Department Care Team (Latest Contact Info) Description 09/06/2022 Travel Social History Tobacco Use Types Packs/Day [...] on file Legal Sex Female 5:52 PM CIRCLE BEVELER Gender Identity Not on file Sexual Orientation Not on file COVID-19 Exposure Response Date Recorded In the last 10 days, have yo u been in contact with someone who was confirmed or suspected to have Coronavirus/COVID-19? No / Unsure 09/06/2022 9:56 AM CIRCLE BEVELER documented as of this encounter Functional Status * RETIRED Are you deaf or do you have serious difficulty hearing Answer Date of Assessment Author Status No 11/21/2019 9:39 AM CDT Activ e * RETIRED Are you blind or do you have serious difficulty seeing, even when wearing glasses? Answer Date of Assessment Author Status No 11/21/2019 9:39 AM DIVYA Activ e * Do you have serious [...] on filedocumented in this encounter Care Teams Animal Anatomy Teacher Relationship Specialty Start Date End Date Tushar West MD [address] [place] [address] PCP - General INTERNAL MEDICINE 11/21/19 documented as of this encounter
--- OUTSIDE RECORDS SUMMARY | 2024-07-15 23:57 | XMS_ITS | Encounter Summary ---
Author Organization [facility] Address [facility]6 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 No / Unsure 09/16/2022 8:25 AM CDT documented as of this encounter [...] on filedocumented in this encounter Care Teams Pipe Washer Relationship Specialty Start Date End Date Tushar West MD [address] [place] [address] PCP - General INTERNAL MEDICINE 11/21/19 Nas Arndt MD [address] [place] [address] Consulting Physician INTERNAL MEDICINE 09/13/22 Pascual Mccullough MD [address] [place] [address] ORTHOPAEDIC SURGERY 09/13/22 documented as of this encounter
--- OUTSIDE RECORDS SUMMARY | 2024-07-15 23:57 | XMS_ITS | Encounter Summary ---
Author Organization [facility] Address [facility]6 [facility] [place] [address] [place] [address] Care Team Providers Care Meter Shop Supervisor Name Role Phone Tushar West MD Primary Care Provider [phone] Encounter Details Date Type Department Care Team (Late st Contact Info) Description 09/06/2022 9:57 AM SAP BUSINESS OBJECTS CONSULTANT - 09/06/2022 11:59 PM SAP BUSINESS OBJECTS CONSULTANT Hospital Encounter [facility] [address] [place] [address] Conrad Mo, CLINICAL DERMATOLOGIST- [address] [facility] [place] [address] Discharge Disposition: Home or Self Care (Routine [...] on file Legal Sex Female 5:52 PM SAP BUSINESS OBJECTS CONSULTANT Gender Identity Not on file Sexual Orientation Not on file COVID-19 Exposure Response Date Recorded In the last 10 days, have yo u been in contact with someone who was confirmed or suspected to have Coronavirus/COVID-19? No / Unsure 09/06/2022 9:56 AM SAP BUSINESS OBJECTS CONSULTANT documented as of this encounter Functional Status [...] Take 5 mg by mouth daily. 3 lidocaine 4 % patch Place 1 patch onto the skin daily. Remove & Discard patch within 12 hours or as directed by 30 patch 03/12/2020 3 LORazepam 0.5 MG tablet Take 1-2 tablets (0.5-1 mg total) by mouth nightly as needed for Anxiety. 4 losartan 100 MG tablet Take 100 mg by mouth daily. 3 omeprazole 40 MG capsule Take 40 mg by mouth daily. 3 oxybutynin 5 MG tablet Take 2 tablets (10 mg total) by mouth 2 (two) times daily. 4 sucralfate 1 G tablet Take 1 g by mouth 4 (four) times daily. 3 documented as of this encounter Plan of Treatment Not on file documented as of this encounter Procedures Procedure Name Priority Date/Time Associated Diagnosis Comments XR KNEE STAND AP KEKE ONLY Routine 09/06/2022 10:18 AM SAP BUSINESS OBJECTS CONSULTANT Acute pain of right knee XR KNEE RT 1V Routine 09/06/2022 10:18 AM SAP BUSINESS OBJECTS CONSULTANT Acute pain of right knee documented in this encounter Results * XR KNEE RT 1V (09/06/2022 10:18 AM SAP BUSINESS OBJECTS CONSULTANT) Anatomical Region Laterality Modality Knee Radiographic Kathleen ging 09/06/2022 11:2 4 AM SAP BUSINESS OBJECTS CONSULTANT Impressions 09/06/2022 11:26 AM SAP BUSINESS OBJECTS CONSULTANT IMPRESSION: Severe osteoarthritis of the right knee as above and other findings as above. Ordered By: CONRAD MO Interpreted By: Gurinder Mclaughlin DO, 09/06/2022 11:24 AM Narrative 09/06/2022 11:26 AM SAP BUSINESS OBJECTS CONSULTANT Examination: XR KNEE RT 1V, XR KNEE STAND AP KEKE ONLY Exam time: 09/06/2022 10:02 AM Clinical history: Severe chronic right knee pain. Comparison: Right knee radiographs 08/27/2022. Technique: PA weightbearing view of both knees with additional sunrise view of the right knee. Findings: [place] view of the right knee is suboptimal due to patient body habitus and limited range of motion. Severe osteoarthritis affects the right knee with near fanr-hh-owqr apposition in the medial compartment mild to moderate patellofemoral compartment joint space narrowing and mild lateral compartment joint space narrowing as well as tricompartmental osteophyte formation. No evidence is seen to suggest acute fracture or malalignment of the bones of the right knee as seen on the PA and sunrise views. Severe osteoarthritis affects the contralateral left knee as seen on the PA view. Procedure Note Gurinder Mclaughlin DO - 09/06/2022 Examination: XR KNEE RT 1V, XR KNEE STAND AP KEKE ONLY Exam time: 09/06/2022 10:02 AM Clinical history: Severe chronic right knee pain. Comparison: Right knee radiographs 08/27/2022. Technique: PA weightbearing view of both knees with additional sunriseview of the right knee. Findings: [place] view of the right knee is suboptimal due to patient body habitusand limited range of motion. Severe osteoarthritis affects the right kneewith near wcee-jz-livt apposition in the medial compartment mild tomoderate patellofemoral compartment joint space narrowing and mild lateralcompartment joint space narrowing as well as tricompartmental osteophyteformation. No evidence is seen to suggest acute fracture or malalignmentof the bones of the right knee as seen on the PA and sunrise views. Severe osteoarthritis affects the contralateral left knee as seen on thePA view. IMPRESSION: Severe osteoarthritis of the right knee as above and other findings asabove. Ordered By: CONRAD MO Interpreted By: Gurinder Mclaughlin DO, 09/06/2022 11:24 AM us Conrad Mo CLINICAL DERMATOLOGIST-BC GENERAL IMAGING Final Resu lt * XR KNEE STAND AP KEKE ONLY (09/06/2022 10:18 AM SAP BUSINESS OBJECTS CONSULTANT) Anatomical Region Laterality Modality Knee Radiographic Kathleen ging 09/06/2022 11:2 4 AM SAP BUSINESS OBJECTS CONSULTANT Impressions 09/06/2022 11:26 AM SAP BUSINESS OBJECTS CONSULTANT IMPRESSION: Severe osteoarthritis of the right knee as above and other findings as above. Ordered By: CONRAD MO Interpreted By: Gurinder Mclaughlin DO, 09/06/2022 11:24 AM Narrative 09/06/2022 11:26 AM SAP BUSINESS OBJECTS CONSULTANT Examination: XR KNEE RT 1V, XR KNEE STAND AP KEKE ONLY Exam time: 09/06/2022 10:02 AM Clinical history: Severe chronic right knee pain. Comparison: Right knee radiographs 08/27/2022. Technique: PA weightbearing view of both knees with additional sunrise view of the right knee. Findings: [place] view of the right knee is suboptimal due to patient body habitus and limited range of motion. Severe osteoarthritis affects the right knee with near cvfj-nw-qkzv apposition in the medial compartment mild to moderate patellofemoral compartment joint space narrowing and mild lateral compartment joint space narrowing as well as tricompartmental osteophyte formation. No evidence is seen to suggest acute fracture or malalignment of the bones of the right knee as seen on the PA and sunrise views. Severe osteoarthritis affects the contralateral left knee as seen on the PA view. Procedure Note Gurinder Mclaughlin DO - 09/06/2022 Examination: XR KNEE RT 1V, XR KNEE STAND AP KEKE ONLY Exam time: 09/06/2022 10:02 AM Clinical history: Severe chronic right knee pain. Comparison: Right knee radiographs 08/27/2022. Technique: PA weightbearing view of both knees with additional sunriseview of the right knee. Findings: [place] view of the right knee is suboptimal due to patient body habitusand limited range of motion. Severe osteoarthritis affects the right kneewith near yihb-ae-qlji apposition in the medial compartment mild tomoderate patellofemoral compartment joint space narrowing and mild lateralcompartment joint space narrowing as well as tricompartmental osteophyteformation. No evidence is seen to suggest acute fracture or malalignmentof the bones of the right knee as seen on the PA and sunrise views. Severe osteoarthritis affects the contralateral left knee as seen on thePA view. IMPRESSION: Severe osteoarthritis of the right knee as above and other findings asabove. Ordered By: CONRAD MO Interpreted By: Gurinder Mclaughlin DO, 09/06/2022 11:24 AM us Conrad Mo CLINICAL DERMATOLOGIST-BC GENERAL IMAGING Final Resu lt documented in this encounter Visit Diagnoses Diagnosis Acute pain of right knee documented in this encounter Care Teams Meter Shop Supervisor Relationship Specialty Start Date End Date Tushar West MD [address] [place] [address] PCP - General INTERNAL MEDICINE 11/21/19 documented as of this encounter
--- OUTSIDE RECORDS SUMMARY | 2024-07-15 23:57 | XMS_ITS | Encounter Summary ---
Author Organization [facility] Address [facility]6 [place] [address] [place] [address] Care Team Providers Care Lay Out Drafter Name Role Phone Tushar West MD Primary Care Provider [phone] Nas Arndt MD Unavailable Pascual Mccullough MD Unavailable [phone] Reason for Visit * Reason Onset Date Comments Referral 09/10/2022 Dr. Arndt Encounter Details Date Type Department Care Team (Late st Contact Info) Description 09/10/2022 Telephone [facility] [address] [address] Sissy Orosco RNFA Referral (Dr. 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 No / Unsure 09/06/2022 9:56 AM CORPORATE BANKING OFFICER documented as of this encounter Functional Status [...] encounter Progress Notes * NIECY Baltazar - 09/13/2022 8:44 AM CST RN contacted Dr. Arndt's office and spoke with Lorena. Patient scheduled with Dr. Arndt on 10/01/22 at 0830am. RN attempted to notify patient, no answer left message with details and asking for call back. ORATE BANKING OFFICER * Marnie Jimenez - 09/10/2022 12:22 PM CST Sissy called and lvm stating she needs to get this pt a apt to see Dr. Arndt. Sent to the nruse ORATE BANKING OFFICER * NIECY Baltazar - 09/10/2022 10:57 AM CST RN contacted Dr. Arndt's office for referral. No answer, left message. ORATE BANKING OFFICER documented in this encounter Plan of Treatment Not on file documented as of this encounter Visit Diagnoses Not on filedocumented in this encounter Care Teams Lay Out Drafter Relationship Specialty Start Date End Date Tushar West MD [address] [place] [id number] PCP - General INTERNAL MEDICINE 11/21/19 Nas Arndt MD [address] [place] [address] Consulting Physician INTERNAL MEDICINE 09/13/22 Pascual Mccullough MD [address] [place] [address] ORTHOPAEDIC SURGERY 09/13/22 documented as of this encounter
--- OUTSIDE RECORDS SUMMARY | 2024-07-15 23:57 | XMS_ITS | Encounter Summary ---
Author Organization [facility] Address [facility]6 [facility] [place] [address] [place] [address] Care Team Providers Care Rest Room Maid Name Role Phone Tushar West MD Primary Care Provider [phone] Nas Arndt MD Unavailable Pascual Mccullough MD Unavailable [phone] Reason for Visit * Physical Therapy (Routine) - Closed Specialty Diagnoses / Procedures Referred By Luc schwartz Referred To Contact [facility] Physical Therapy Diagnoses Lipedema Lymphedema of left lower extremity Procedures OFFICE/OUTPT VISIT,NEW,LEVL III OFFICE/OUTPT VISIT,NEW,LEVL IV OFFICE/OUTPT VISIT,NEW,LEVL V OFFICE/OUTPT VISIT,EST,LEVL III OFFICE/OUTPT VISIT,EST,LEVL IV OFFICE/OUTPT VISIT,EST,LEVL V Mariola Mo, MOLD CAPPER HELPER-BC [address] [place] [address] Phone: tel: fax: [facility] [address] [place] [address] Phone: tel: fax: Referral ID Status Reason Start Date Expiration Date Visits Re quested Visits Authorized [id number] Closed 09/06/2022 10/06/2023 30 30 Encounter Details Date Type Department Care Team (Late st Contact Info) Description 09/24/2022 2:52 PM CDT - 09/24/2022 11:59 PM CDT Hospital Encounter [facility] [address] [place] [address] Mariola Mo, 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 No / Unsure 09/23/2022 3:04 PM CDT documented as of this encounter [...] of this encounter Progress Notes * Nia Ozuna Geoffrey, PATIENT TRANSPORT ORDERLY - 09/24/2022 3:00 PM CDT .. PHYSICAL THERAPY TREATMENT NOTE Time In: 1500 Time Out: 1610 Total Time: 70 minutes Name: Olga Kong : 1965 Past Medical History: Diagnosis Date ??? Allergies ??? Anxiety ??? Depression ??? Hypertension ??? Lipedema ??? Lymphedema ??? Neuropathy ??? Obesity ??? Sleep apnea ??? Urinary bladder incontinence Past Surgical History: Procedure Laterality Date ??? SECTION, CLASSIC ??? HYSTERECTOMY Subjective: Diagnosis: LLE Lymphedema/ B Lipidemia Referring Physician: DONNA Su Onset Date: Chronic-Childhood Treatment Day: 3 Total Approved Visits: 20 Therapy Plan of Care: 5x/week with decreasing frequency as patient becomes more independent with self-MLD and applying SS bandaging. Return to MD: As needed Subjective Note: Pt states that her wrap fell down right before bed and her fixed it as best as he could. Pt also states that she had some leg cramping, but that is normal with her. Pt doesn't complain of any pain pre treatment. Location of Pain: BLEs Pre-treatment Pain: 0/10 Post-treatment Pain: 0/10 Restriction/Precaution: No short neck sequence unable to tolerate prone Objective: Treatment Performed: Therapeutic Exercise - 59196 Minutes Performed: Intervention: Manual Therapy - 41071 Minutes Performed: 60 minutes Intervention: -Opened left inguinal lymph nodes, followed by MLD down L LE in recumbent -SS multi-layered wrap applied to LLE following MLD -stockinette -rosidal soft -6in artiflex -2 kidney foam -8cm, 10cm, 12cm SS bandage Neuromuscular Reeducation - 72558 Minutes Performed: Intervention: Therapeutic Activities - 36471 Minutes Performed: 10 N-Pt educated on a Jobst Farrow Wrap Classic to be worn instead of SS multi layered bandaging as itfell down last night. Will see how bandage stays up after this session. Modalities Minutes Performed: Intervention: Total Treatment Time: 70 minutes Education Performed: Pt instructed to keep SS multi layered bandage on until two hours prior to next visit unless it became too tight or if patient wasn't able to tolerate it. ASSESSMENT: Note: Again patient tolerated MDL without any adverse reactions or pain. Continue to focus on L LE with opening of left inguinal lymph node followed by MLD of L LE proximal to distal. Applied SS multi layered bandage to L LE. Also educated patient on possibly ordering a Jobst Farrow Wrap Classic towear if the SS bandaging keep falling down. PLAN: Plan for next visit: MLD with [...] lymphedema documented in this encounter Care Teams Rest Room Maid Relationship Specialty Start Date End Date Tushar West MD [address] [place] [address] PCP - General INTERNAL MEDICINE 11/21/19 Nas Arndt MD [address] [place] [address] Consulting Physician INTERNAL MEDICINE 09/13/22 Pascual Mccullough MD [address] [facility] [place] [address] ORTHOPAEDIC SURGERY 09/13/22 documented as of this encounter
--- OUTSIDE RECORDS SUMMARY | 2024-07-15 23:57 | XMS_ITS | Encounter Summary ---
Author Organization [facility] Address [facility] [place] [address] [place] [address] Care Team Providers Care General Production Worker Name Role Phone Tushar West MD Primary Care Provider [phone] Nas Arndt MD Unavailable Pascual Mccullough MD Unavailable [phone] Reason for Visit * Reason Comments Edema * Physical Therapy (Routine) - Closed Specialty Diagnoses / Procedures Referred By Contrenato schwartz Referred To Contact [facility] Physical Therapy Diagnoses Lipedema Lymphedema of left lower extremity Procedures OFFICE/OUTPT VISIT,NEW,LEVL III OFFICE/OUTPT VISIT,NEW,LEVL IV OFFICE/OUTPT VISIT,NEW,LEVL V OFFICE/OUTPT VISIT,EST,LEVL III OFFICE/OUTPT VISIT,EST,LEVL IV OFFICE/OUTPT VISIT,EST,LEVL V Mariola Mo, MANUFACTURING TECHNICIAN-BC [address] [place] [address] Phone: tel: fax: [facility] [address] [place] [address] Phone: tel: fax: Referral ID Status Reason Start Date Expiration Date Visits Re quested Visits Authorized [id number] Closed 09/06/2022 10/06/2023 30 30 Encounter Details Date Type Department Care Team (Late st Contact Info) Description 09/16/2022 8:15 AM CDT - 09/16/2022 11:59 PM CDT Hospital Encounter [facility] [address] [place] [address] Ania Awan, PT [address] [place] [address] Mariola Mo, MANUFACTURING TECHNICIAN- [address] 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 Allergies ??? Anxiety ??? Depression ??? Hypertension ??? Lipedema ??? Lymphedema ??? Neuropathy ??? Obesity ??? Sleep apnea ??? Urinary bladder incontinence Past Surgical History: Procedure Laterality Date ??? SECTION, CLASSIC ??? HYSTERECTOMY Subjective: Diagnosis: LLE Lymphedema/ B Lipidemia Referring Physician: VILMA Su- Onset Date: Chronic-Childhood Mechanism Of Injury: Insidious Onset Prior Treatment For Diagnosis: None Return to MD: As Needed Pt reports since she was young she has always had bigger lower legs. She reports over the past few years her left lower leg became more swollen. 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 This occurred 8 years ago. She has a softball size area that is still very tender and painful from the incident. She reports a history of multiple c-sections as well. She is scheduled with a vascular specialiston 10/01. She reports difficulty with dressing, stairs, genreal mobility, wearing shoes with backs, and her baseline pants. Location of Pain: Stabbing/Throbbing in BLEs, (Lt>Rt) Restriction/Precaution: No Short Neck Sequence, unable to tolerated prone. Patient Goals: Decreased edema in LLE and improve pain. Objective: LE Circumference Right Left MTPs 24.5 cm 25 cm Dorsum Of Foot 25 cm 26 cm Lat Malleoli 1 30.5 cm 31.5 cm 2 31 38 3 37.5 44 4 47 50 5 54 54 6 57 60.5 7 64 65.5 8 68 68 9 68.5 68 10 67 69 11 66 78.5 12 75.5 81 13 82 90 14 90 100.5 Trunk 170 cm Pt presents with tissue discoloration, softball size in diameter, along anterior lower leg. Pt reports increased tenderness with light and deep palpation in this area. Pt has no fibrotic tissue changes present at this time. Education Performed: PT POC, HEP, MLD, Compression garments, management of lymphedema. Treatment Performed: Therapeutic Activity 64225: Time: 40' - Pt Education on lymphedema, precautions, management, vasopneumatic pump, garments. Assessment Assessment/Impressions: Olga Kong is a 57-year-old female who presents today with BLE lipidemia and LLE secondary lymphedema. Patient presents with lymphedema present in her LLE with objective measurements taken showing this. She reports difficulty wearing non-slip on shoes, her baseline clothing bottoms and increased difficulty with daily mobility due to her lymphedema and lipidemia. She would benefit from MLD and application of multi-layered SS bandaging to decrease edema present, decrease risk of fibrotic tissue changes, and improve above functional limitations. Rehab Potential: GOOD Personal Factors/Co-Morbidities Affecting Care: 3-4+ Examination of Body Systems: Low (1-2) Clinical Presentation of Patient: Stable Uncomplicated Eval Complexity: Low PLAN: PT Plan for next visit: MLD with abdominal sequence, opening of left inguinal lymph nodes followed by MLD down LLE. SS multi layered wrap applied after MLD to lower left leg. Measure for compression garments and assess for tactile medical vaso pump after completion of 4 weeks treatment. Treatment/Interventions: Therapeutic Exercise - 81014, Therapeutic Activity - 60887 and Manual Therapy - 31086 Frequency: 5x/week with decreasing frequency as patient becomes more independent with self-MLD and applying SS bandaging. GOALS: 1. Patient will understand lymphedema precautions to decrease the risk of infection and acerbation of lymphedema in left lower leg after first week of treatment. 2. Patient will develop tolerance for wearing short-strethc multi-layered bandaging between treatments for up to 22 of 24 hours a day after one week of treatment. 3. Patient and spouse will be independent with short-stretch compression bandaging for continued volume reduction and prevention of re-accumulation of edema fluid in two weeks. 4. Patient will be independent with donning and doffing of compression garments which will enable regular daily garment wear. 5. Patient will achieve maximum lymphedema reduction to enable functional improvements such as fitting in to closed back shoes, start size clothing, improved balance and mobility. Cosigned by DONNA Mi at 09/25/2022 11:44 AM CDT documented in this encounter Plan of Treatment Not on file documented as of this encounter Visit Diagnoses Diagnosis Lymphedema of left leg- Primary Other lymphedema Lipedema documented in this encounter Care Teams General Production Worker Relationship Specialty Start Date End Date Tushar West MD [address] [place] [address] PCP - General INTERNAL MEDICINE 11/21/19 Nas Arndt MD [address] [place] [address] Consulting Physician INTERNAL MEDICINE 09/13/22 Pascual Mccullough MD [address] [place] [address] ORTHOPAEDIC SURGERY 09/13/22 documented as of this encounter
--- OUTSIDE RECORDS SUMMARY | 2024-07-15 23:57 | XMS_ITS | Encounter Summary ---
Author Organization [facility] Address [facility]6 [facility] [place] [address] [place] [address] Care Team Providers Care Hand Flatwork Finisher Name Role Phone Tushar West MD Primary Care Provider [phone] Nas Arndt MD Unavailable Pascual Mccullough MD Unavailable [phone] Reason for Visit * Reason Comments Edema * Physical Therapy (Routine) - Closed Specialty Diagnoses / Procedures Referred By Contrenato schwartz Referred To Contact [facility] Physical Therapy Diagnoses Lipedema Lymphedema of left lower extremity Procedures OFFICE/OUTPT VISIT,NEW,LEVL III OFFICE/OUTPT VISIT,NEW,LEVL IV OFFICE/OUTPT VISIT,NEW,LEVL V OFFICE/OUTPT VISIT,EST,LEVL III OFFICE/OUTPT VISIT,EST,LEVL IV OFFICE/OUTPT VISIT,EST,LEVL V Mariola Mo, POWDERED SUGAR SUPERVISOR-BC [address] [facility] [place] [address] Phone: tel: fax: [facility] [address] [place] [address] Phone: tel: fax: Referral ID Status Reason Start Date Expiration Date Visits Re quested Visits Authorized [id number] Closed 09/06/2022 10/06/2023 30 30 Encounter Details Date Type Department Care Team (Late st Contact Info) Description 09/23/2022 3:05 PM CDT - 09/23/2022 11:59 PM CDT Hospital Encounter [facility] [address] [place] [address] Mariola Mo, [facility]- [address] 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 PHYSICAL THERAPY TREATMENT NOTE Time In: 1515 Time Out: 1615 Total Time: 60 minutes Name: Olga Kong : 1965 Past Medical History: Diagnosis Date ??? Allergies ??? Anxiety ??? Depression ??? Hypertension ??? Lipedema ??? Lymphedema ??? Neuropathy ??? Obesity ??? Sleep apnea ??? Urinary bladder incontinence Past Surgical History: Procedure Laterality Date ??? SECTION, CLASSIC ??? HYSTERECTOMY Subjective: Diagnosis: LLE Lymphedema/ B Lipidemia Referring Physician: VILMA Su-BC Onset Date: Chronic-Childhood Treatment Day: 2 Total Approved Visits: 20 Therapy Plan of Care: 5x/week with decreasing frequency as patient becomes more independent with self-MLD and applying SS bandaging. Return to MD: As needed Subjective Note: Pt states that she is feeling pretty good this afternoon, just a little nervous about today. Pt denies any pain pre treatment. Pt also states that her and her have been doinga low carb diet and has lost about 11 pounds. Location of Pain: BLEs Pre-treatment Pain: 0/10 Post-treatment Pain: 0/10 Restriction/Precaution: No short neck sequence unable to tolerate prone Objective: Treatment Performed: Therapeutic Exercise - 09318 Minutes Performed: Intervention: Manual Therapy - 80183 Minutes Performed: 60 minutes Intervention: -Opened left inguinal lymph nodes, followed by MLD down L LE in recumbent -SS multi-layered wrap applied to LLE following MLD -stockinette -rosidal soft -6in artiflex -2 kidney foam -8cm, 2(12 cm) SS bandage Neuromuscular Reeducation - 39068 Minutes Performed: Intervention: Therapeutic Activities - 98183 Minutes Performed: Modalities Minutes Performed: Intervention: Total Treatment Time: 60 minutes Education Performed: Pt instructed to keep SS multi layered bandage on until two hours prior to next visit unless it became too tight or if patient wasn't able to tolerate it. ASSESSMENT: Note: Pt tolerated MLD to L LE without any adverse reactions and denied any pain throughout treatment. Therapy began with opening of left inguinal lymph nodes followed by MLD down LLE in a recumbent position as patient is unable to lay on side or prone. SS multi layered bandaging applied to L LE tocontinue the lymph drainage. Pt instructed to keep wrap on L LE until two hours prior to her next visit and patient verbalizes understanding. Pt also advised to take wrap off if it becomes too tight or if patient cannot tolerate it. Pt will continue to benefit from MLD to LLE to decrease edema thatis present. PLAN: Plan for next visit: MLD with [...] lymphedema documented in this encounter Care Teams Hand Flatwork Finisher Relationship Specialty Start Date End Date Tushar West MD [address] [place] [address] PCP - General INTERNAL MEDICINE 11/21/19 Nas Arndt MD [address] [place] [address] Consulting Physician INTERNAL MEDICINE 09/13/22 [place] [address] [place] [address] [place] [address] ORTHOPAEDIC SURGERY 09/13/22 documented as of this encounter
--- OUTSIDE RECORDS SUMMARY | 2024-07-15 23:57 | XMS_ITS | Encounter Summary ---
Author Organization [facility] Address [facility]6 [facility] [place] [address] [place] [address] Care Team Providers Care Installers Mechanical Name Role Phone Tushar West MD Primary Care Provider [phone] Nas Arndt MD Unavailable Pascual Mccullough MD Unavailable [phone] Encounter Details Date Type Department Care Team (Late st Contact Info) Description 09/13/2022 Abstract [facility] [address] [place] [address] Nas Arndt MD [address] 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 No / Unsure 09/06/2022 9:56 AM NATIONAL PARK TOUR GUIDE documented as of this encounter Functional Status [...] Author Status No 11/21/2019 9:39 AM Corrina Arteaag RN Active * Because of a physical, [...] on filedocumented in this encounter Care Teams Installers Mechanical Relationship Specialty Start Date End Date Tushar West MD [address] [place] [address] PCP - General INTERNAL MEDICINE 11/21/19 Nas Arndt MD [address] [place] [address] Consulting Physician INTERNAL MEDICINE 09/13/22 Pascual Mccullough MD [address] [facility] [place] [address] ORTHOPAEDIC SURGERY 09/13/22 documented as of this encounter
--- OUTSIDE RECORDS SUMMARY | 2024-07-15 23:57 | XMS_ITS | Encounter Summary ---
Author Organization [facility] Address [facility] [place] [address] [place] [address] Care Team Providers Care Bulk Sugar Handler Name Role Phone Tushar West MD Primary Care Provider [phone] Nas Arndt MD Unavailable Pascual Mccullough MD Unavailable [phone] Reason for Visit * Reason Comments Edema * Physical Therapy (Routine) - Closed Specialty Diagnoses / Procedures Referred By Contrenato schwartz Referred To Contact [facility] Physical Therapy Diagnoses Lipedema Lymphedema of left lower extremity Procedures OFFICE/OUTPT VISIT,NEW,LEVL III OFFICE/OUTPT VISIT,NEW,LEVL IV OFFICE/OUTPT VISIT,NEW,LEVL V OFFICE/OUTPT VISIT,EST,LEVL III OFFICE/OUTPT VISIT,EST,LEVL IV OFFICE/OUTPT VISIT,EST,LEVL V Mariola Mo, CORPORATE PARALEGAL-BC [address] [facility] [place] [address] Phone: tel: fax: [facility] [address] [place] [address] Phone: tel: fax: Referral ID Status Reason Start Date Expiration Date Visits Re quested Visits Authorized [id number] Closed 09/06/2022 10/06/2023 30 30 Encounter Details Date Type Department Care Team (Late st Contact Info) Description 09/25/2022 3:00 PM CDT - 09/25/2022 11:59 PM CDT Hospital Encounter [facility] [address] [place] [address] Mariola Mo, 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 PHYSICAL THERAPY TREATMENT NOTE Time In: 1505 Time Out: 1615 Total Time: 70 minutes Name: Olga Kong : 1965 Past Medical History: Diagnosis Date ??? Allergies ??? Anxiety ??? Depression ??? Hypertension ??? Lipedema ??? Lymphedema ??? Neuropathy ??? Obesity ??? Sleep apnea ??? Urinary bladder incontinence Past Surgical History: Procedure Laterality Date ??? SECTION, CLASSIC ??? HYSTERECTOMY Subjective: Diagnosis: LLE Lymphedema/ B Lipidemia Referring Physician: ALDO SuBC Onset Date: Chronic-Childhood Treatment Day: 4 Total Approved Visits: 20 Therapy Plan of Care: 5x/week with decreasing frequency as patient becomes more independent with self-MLD and applying SS bandaging. Return to MD: As needed Subjective Note: Pt states that she had very bad calf spasms last night that made her cry and had to remove her bandages. Pt states that then reapplied the SS only and didn't have any spasms.Pt states that her legs are feeling fine pre treatment. Location of Pain: BLEs Pre-treatment Pain: 0/10 Post-treatment Pain: 0/10 Restriction/Precaution: No short neck sequence unable to tolerate prone Objective: Measurements for a FarrowWrap Classic L ankle 34 cm; Widest calf 68 cm; 2 finger widths below crease 67 cm; Length 42 cm Foot: base of toes to heel 17.5 cm; MTP 25 cm Treatment Performed: Therapeutic Exercise - 56914 Minutes Performed: Intervention: Manual Therapy - 02029 Minutes Performed: 45 minutes Intervention: -Opened left inguinal lymph nodes, followed by MLD down L LE in recumbent -SS multi-layered wrap applied to LLE following MLD -kathya H-rosidal soft H-6in artiflex H-2 kidney foam -8cm, 10cm, 12cm SS bandage Neuromuscular Reeducation - 17182 Minutes Performed: Intervention: Therapeutic Activities - 66330 Minutes Performed: 25 minutes -Pt educated on a Jobst Farrow Wrap Classic to be worn instead of SS multi layered bandaging as it fell down last night. Will see how bandage stays up after this session. -Measurements taken and discussed insurance cover for FarrowWrap Classic Modalities Minutes Performed: Intervention: Total Treatment Time: 70 minutes Education Performed: Pt instructed to keep SS multi layered bandage on until two hours prior to next visit unless it became too tight or if patient wasn't able to tolerate it. ASSESSMENT: Note: Pt measured and educated on the FarrowWrap Classic again this visit. Discussion on insurance cover and will send off to see if insurance will cover any of it. Pt continues to tolerate MLD without complaint of pain. MLD again performed on L LE and left truncal region. Pt continues to have difficulties keeping the bandage to stay up, so the rosidal soft not used this date, just the SS bandages to see if that would help stay up and to help her calf from cramping later on throughout the day. Pt also given a HEP to be done twice a day while SS bandaging applied to L LE. Patient's informationwill be sent off to [employer] to see if she has coverage on garments if not patient will have to pay out of pocket. PLAN: Plan for next visit: MLD with [...] lymphedema documented in this encounter Care Teams Bulk Sugar Handler Relationship Specialty Start Date End Date Tushar West MD [address] [place] [address] PCP - General INTERNAL MEDICINE 11/21/19 Nas Arndt MD [address] [place] [address] Consulting Physician INTERNAL MEDICINE 09/13/22 Pascual Mccullough MD [address] [facility] [place] [address] ORTHOPAEDIC SURGERY 09/13/22 documented as of this encounter
--- OUTSIDE RECORDS SUMMARY | 2024-07-15 23:57 | XMS_ITS | Encounter Summary ---
Author Organization [facility] Address [facility] 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
--- OUTSIDE RECORDS SUMMARY | 2024-07-15 23:57 | XMS_ITS | Encounter Summary ---
Author Organization [facility] Address [facility]6 [facility] [place] [address] [place] [address] Care Team Providers Care Fashion Coordinator Name Role Phone Tushar West MD Primary Care Provider [phone] Nas Arndt MD Unavailable Pascual Mccullough MD Unavailable [phone] Reason for Referral * Physical Therapy (Routine) - Closed Specialty Diagnoses / Procedures Referred By Luc schwartz Referred To Contact [facility] Physical Therapy Diagnoses Lipedema Lymphedema of left lower extremity Procedures OFFICE/OUTPT VISIT,NEW,LEVL III OFFICE/OUTPT VISIT,NEW,LEVL IV OFFICE/OUTPT VISIT,NEW,LEVL V OFFICE/OUTPT VISIT,EST,LEVL III OFFICE/OUTPT VISIT,EST,LEVL IV OFFICE/OUTPT VISIT,EST,LEVL V Mariola Mo, REGISTER REPAIRER-BC [address] [place] [address] Phone: tel: fax: [facility] [address] [place] [address] Phone: tel: fax: Referral ID Status Reason Start Date Expiration Date Visits Re quested Visits Authorized [id number] Closed 09/06/2022 10/06/2023 30 30 AINABLE DEVELOPMENT POLICY ANALYST * Surgical (Routine) - Closed Specialty Diagnoses / Procedures Referred By Contact Referred To Contact VASCULAR SURGERY / [facility] Orthopaedics Diagnoses Lipedema Lymphedema of left lower extremity Procedures OFFICE/OUTPT VISIT,NEW,LEVL III OFFICE/OUTPT VISIT,NEW,LEVL IV OFFICE/OUTPT VISIT,NEW,LEVL V OFFICE/OUTPT VISIT,EST,LEVL III OFFICE/OUTPT VISIT,EST,LEVL IV OFFICE/OUTPT VISIT,EST,LEVL V Mariola Mo FNP-BC [address] [place] [id number] Phone: tel: fax: [place] [address] Phone: tel: fax: Referral ID Status Reason Start Date Expiration Date V isits Requested Visits Authorized [id number] Closed Specialty Services 09/06/2022 09/07/20[address] Arndt please evaluate and treat. AINABLE DEVELOPMENT POLICY ANALYST Reason for Visit * Reason Comments Knee Pain RIGHT Encounter Details Date Type Department Care Team (Late st Contact Info) Description 09/06/2022 10:15 AM SUSTAINABLE DEVELOPMENT POLICY ANALYST Office Visit [address] [address] Mariola Mo FNP-BC [address] [place] [id number] Knee Pain (RIGHT) Social History Tobacco Use [...] on file Legal Sex Female 5:52 PM SUSTAINABLE DEVELOPMENT POLICY ANALYST Gender Identity Not on file Sexual Orientation [...] - Inhaled Oxygen Concentration - - Weight 184.6 kg (407 lb) 09/06/2022 9:58 AM SUSTAINABLE DEVELOPMENT POLICY ANALYST Height 162.6 cm (5' 4 ) 09/06/2022 9:58 AM SUSTAINABLE DEVELOPMENT POLICY ANALYST Body Mass Index 69.86 09/06/2022 9:58 AM SUSTAINABLE DEVELOPMENT POLICY ANALYST documented in this encounter Functional Status * [...] documented in this encounter Progress Notes * Mariola Mo REGISTER REPAIRER-BC - 09/06/2022 10:15 AM CST Chief Complaint: Knee Pain (RIGHT) History of Present Illness: Olga Kong is a 57-year-old female who presents to the office for Knee Pain (RIGHT) Patient is in clinic today for pain [...] Problem List: Patient Active Problem List Diagnosis ??? Elevated CO2 level ??? Respiratory failure (CMS/HCC) ??? Primary osteoarthritis of right knee ??? Lymphedema of right lower extremity ??? Lipedema ??? Lymphedema of left leg History: Past Medical History: Diagnosis Date ??? Allergies ??? Anxiety ??? Depression ??? Hypertension ??? Lipedema ??? Lymphedema ??? Neuropathy ??? Obesity ??? Sleep apnea ??? Urinary bladder incontinence Past Surgical History: Procedure Laterality Date ??? SECTION, CLASSIC ??? HYSTERECTOMY Family History Problem Relation Name Age of Onset ??? Heart Disease Mother ??? Kidney Disease Mother ??? Heart Disease Father ??? Diabetes Brother Family Status Relation Name Status ??? Mother Alive ??? Father ??? Brother (Not Specified) Social History Socioeconomic History ??? Marital status: Tobacco Use ??? Smoking status: Never ??? Smokeless tobacco: Never Substance and Sexual Activity ??? Alcohol use: Never ??? Drug use: Never Other Topics Concern ??? Exercise No ??? Special Diet No ??? Caffeine Concern No Medications: Current Outpatient Medications: ??? aspirin 81 MG chewable tablet, Chew 81 mg by mouth daily., Disp: , Rfl: ??? busPIRone (BUSPAR) 10 MG tablet, Take 10 mg by mouth 3 (three) times daily., Disp: , Rfl: ??? carvedilol (COREG) 12.5 MG tablet, Take 12.5 mg by mouth 2 (two) times daily with meals., Disp:, Rfl: ??? diclofenac EC (VOLTAREN) 75 MG tablet, Take 1 tablet (75 mg total) by mouth 2 (two) times daily., Disp: 60 tablet, Rfl: 2 ??? escitalopram 5 MG tablet, Take 5 mg by mouth daily. , Disp: , Rfl: ??? gabapentin 300 MG capsule, Take 300 mg by mouth nightly., Disp: , Rfl: ??? LORazepam 0.5 MG tablet, Take 0.5-1 mg by mouth nightly as needed for Anxiety. , Disp: , Rfl: ??? losartan 100 MG tablet, Take 100 mg by mouth daily., Disp: , Rfl: ??? oxybutynin 5 MG tablet, Take 10 mg by mouth 2 (two) times daily., Disp: , Rfl: ??? albuterol sulfate HFA 108 (90 Base) MCG/ACT inhaler, inhale 1 to 2 puffs by mouth every 4 hoursas needed, Disp: , Rfl: ??? atenolol (TENORMIN) 50 MG tablet, Take 1 tablet (50 mg total) by mouth nightly at bedtime. at bedtime., Disp: , Rfl: ??? escitalopram (LEXAPRO) 10 MG tablet, Take 1 tablet (10 mg total) by mouth daily., Disp: , Rfl: ??? losartan-hydroCHLOROthiazide (HYZAAR) 100-12.5 MG tablet, Take 1 tablet by mouth daily., Disp: , Rfl: No Known Allergies Objective: Body mass index is 69.86 kg/m??. Last Recorded Weight 09/06/22 0958 Weight: (!) 184.6 kg (407 lb) Physical exam: Constitutional: Alert and in [...] pain with hip rotation, range of motion 0-90 and restricted due to body habitus, antalgic gait,positive crepitus, diffuse lower leg swelling LEFT slightly greater than RIGHT, the edema stops at the distal calves and resumes at the ankles creating a cuff appearance consistent with lipedema, no redness or warmth, no open areas, palpable pedal pulses. Results: XRAY of RIGHT knee today reveals bone on bone medial compartment space narrowing osteoarthritis consistent with end-stage osteoarthritis and large osteophytes to the medial femoralcondyle with varus deformity and no acute or healing bony injury or dislocation. Incidental finding of bone bone medialcompartment space narrowing osteoarthritis to LEFT knee as well. Procedure: Procedure: Injection of the Knee Joint [...] M17.11 715.16 OSTEOARTHRITIS OF RIGHT KNEE JOINT methylPREDNISolone acetate (DEPO-Medrol) injection 80 mg lidocaine (XYLOCAINE) 1 % injection SOLN 8 mL diclofenac EC (VOLTAREN) 75 MG tablet 2. Lipedema R60.9 782.3 LIPEDEMA Ambulatory referral to Vascular Surgery Ambulatory referral to Lymphedema 3. Lymphedema of left lower extremity I89.0 457.1 LYMPHEDEMA OF LEFT LOWER LIMB Ambulatory referralto Vascular Surgery Ambulatory referral to Lymphedema Plan: Reviewed imaging with patient in the office today. She has severe osteoarthritis and will require total knee arthroplasty but given her BMI of 69 we need to remain conservative at this point. I have recommended starting off with an injection which was given in the office today and tolerated well. She is aware that she may have these injections every 3 months as needed for her pain. If she does not see significant relief we can try a Synvisc injection and the last being RFA treatment. She does have end stage osteoarthritis of her LEFT knee and will notify the office if wanting to proceed with an injection. I have also recommended starting her on Diclofenac to assist with her osteoarthritis. I discussed with patient the need to work on her weight loss to get her BMI down to 40 which would require to get her weight down to roughly 240. I did discuss with her regarding increasing protein and water intake to decrease hunger but not loose muscle mass. She will start working on watching herintake especially since her has been recently diagnosed with diabetes. Lastly on examination and after discuss with patient in regards to her lower extremity swelling. She is showing signs of lipedema BILATERALLY with signs of possible lymphedema of her LEFT lower extremity. I have recommended getting her an appointment with Dr. Arndt for evaluation and treatment ofher lower extremity swelling. We will go ahead and get her started in physical therapy while we areawaiting for an appointment with Dr. Arndt. Follow up: Return if symptoms worsen or fail to improve. DONNA MI AINABLE DEVELOPMENT POLICY ANALYST documented in this encounter Plan of Treatment Scheduled Referrals Name Type Priority Associated Diagnoses Orde r Schedule Ambulatory referral to Vascular Surgery Referral Routine Lipedema Lymphedema of left lower extremity Ordered: 09/06/2022 Ambulatory referral to Lymphedema Referral Routine Lipedema Lymphedema of left lower extremity Ordered: 09/06/2022 documented as of this encounter Visit Diagnoses Diagnosis Primary osteoarthritis of right knee- Primary Primary localized osteoarthrosis, lower leg Lipedema Lymphedema of left lower extremity documented in this encounter Administered Medications Inactive Administered Medications - up to 3 most recent administrations Medication Order MAR Action Action Date Dose Rate Site lidocaine (XYLOCAINE) 1 % injection SOLN 8 mL 8 mL, Other, Once, 1 dose, On Fri09/06/22 at 1100Indications:Primary osteoarthritis of right knee Given 09/06/2022 11:06 AM SUSTAINABLE DEVELOPMENT POLICY ANALYST 8 mLs Right Knee methylPREDNISolone acetate (DEPO-Medrol) injection 80 mg 80 mg, Other, Once, 1 dose, On Fri09/06/22 at 1100, Shake WellIndications:Primary osteoarthritis of right knee Given 09/06/2022 11:07 AM SUSTAINABLE DEVELOPMENT POLICY ANALYST 80 mg Right Knee documented in this encounter Care Teams Fashion Coordinator Relationship Specialty Start Date End Date Tushar West MD [address] [place] [phone] PCP - General INTERNAL MEDICINE 11/21/19 Nas Arndt MD [address] [place] [address] Consulting Physician INTERNAL MEDICINE 09/13/22 Pascual Mccullough MD [address] [facility] [place] [address] ORTHOPAEDIC SURGERY 09/13/22 documented as of this encounter
--- OUTSIDE RECORDS SUMMARY | 2024-07-15 23:57 | XMS_ITS | Encounter Summary ---
Author Organization [facility] Address [facility] [facility] [place] [address] [place] [address] Care Team Providers Care Real Estate Loan Processor Name Role Phone Tushar West MD Primary Care Provider [phone] Encounter Details Date Type Department Care Team (Late st Contact Info) Description 08/29/2022 Orders Only [facility] [place] [id number] [address] [id number] Conrad Mo, [facility]- [address] [facility] [place] [id number] Social History Tobacco Use Types Packs/Day Years [...] on file Legal Sex Female 5:52 PM DEMAND GENERATION MANAGER Gender Identity Not on file Sexual [...] Author Status No 11/21/2019 9:39 AM Corrina Artegaa RN Active * Because of a physical, [...] STAND AP KEKE ONLY (09/06/2022 10:18 AM DEMAND GENERATION MANAGER) Anatomical Region Laterality Modality Knee Radiographic Kathleen ging 09/06/2022 11:2 4 AM DEMAND GENERATION MANAGER Impressions 09/06/2022 11:26 AM DEMAND GENERATION MANAGER IMPRESSION: Severe osteoarthritis of the right knee as above and other findings as above. Ordered By: CONRAD MO Interpreted By: Gurinder Mclaughlin DO, 09/06/2022 11:24 AM Narrative 09/06/2022 11:26 AM DEMAND GENERATION MANAGER Examination: XR KNEE RT 1V, XR KNEE STAND AP KEKE ONLY Exam time: 09/06/2022 10:02 AM Clinical history: Severe chronic right knee pain. Comparison: Right knee radiographs 08/27/2022. Technique: PA weightbearing view of both knees with additional sunrise view of the right knee. Findings: [place] view of the right knee is suboptimal due to patient body habitus and limited range of motion. Severe osteoarthritis affects the right knee with near [id number] apposition in the medial compartment mild to [...] additional sunriseview of the right knee. Findings: [place] view of the right knee is suboptimal due to patient body habitusand limited range of motion. Severe osteoarthritis affects the right kneewith near [id number] apposition in the medial compartment mild tomoderate [...] DO, 09/06/2022 11:24 AM us Conrad Mo FLIGHT/TRANSPORT NURSE-BC GENERAL IMAGING Final Resu lt documented in this encounter Visit Diagnoses Diagnosis Acute pain of right knee- Primary Acute pain of right knee documented in this encounter Care Teams Real Estate Loan Processor Relationship Specialty Start Date End Date Tushar West MD [address] [place] [address] PCP - General INTERNAL MEDICINE 11/21/19 documented as of this encounter
--- OUTSIDE RECORDS SUMMARY | 2024-07-15 23:58 | XMS_ITS | Encounter Summary ---
Author Organization [facility] Address [facility] [facility] [place] [address] [place] [address] Care Team Providers Care Service Trainer Name Role Phone Unavailable Primary Care Provider Unavailabl e Encounter Details Date Type Department Care Team (Late st Contact Info) Description 04/22/2002 Abstract [facility] CONVERSION [address] [place] [address] , Generic Conversion, Social History Tobacco Use Types Packs/Day Years Used Date Smoking Tobacco: Never Assessed Comments Unknown Sex and Gender Information Value Date Recorded Sex Assigned at Not on file Legal Sex Female 5:52 PM DIRECTOR OF REGIONAL SALES Gender Identity Not on file Sexual Orientation Not on file documented as of this encounter Plan of Treatment Not on file documented as of this encounter Visit Diagnoses Not on filedocumented in this encounter
--- OUTSIDE RECORDS SUMMARY | 2024-07-15 23:58 | XMS_ITS | Encounter Summary ---
Author Organization [facility] Address [facility] [place] [address] [place] [address] Care Team Providers Care Seasonal Recruiter Name Role Phone Unavailable Primary Care Provider Unavailabl e Encounter Details Date Type Department Care Team (Late st Contact Info) Description 05/15/2005 Abstract [facility] CONVERSION [address] [place] [address] [place] [address] [place] [address] Social History Tobacco Use Types Packs/Day Years Used Date Smoking Tobacco: Never Assessed Comments Unknown Sex and Gender Information Value Date Recorded Sex Assigned at Not on file Legal Sex Female 5:52 PM EMERGENCY VETERINARY ASSISTANT Gender Identity Not on file Sexual Orientation Not on file documented as of this encounter Plan of Treatment Not on file documented as of this encounter Visit Diagnoses Not on filedocumented in this encounter
--- OUTSIDE RECORDS SUMMARY | 2024-07-15 23:58 | XMS_ITS | Encounter Summary ---
Author Organization [facility] Address [facility] [facility] [place] [address] [place] [address] Care Team Providers Care S Iron Worker Name Role Phone Unavailable Primary Care Provider Unavailabl e Encounter Details Date Type Department Care Team (Late st Contact Info) Description 05/10/2005 Abstract [facility]FL CONVERSION [address] [place] [address] [place] [address] [place] [address] Social History Tobacco Use Types Packs/Day Years Used Date Smoking Tobacco: Never Assessed Comments Unknown Sex and Gender Information Value Date Recorded Sex Assigned at Not on file Legal Sex Female 5:52 PM JIG INSPECTOR Gender Identity Not on file Sexual Orientation Not on file documented as of this encounter Plan of Treatment Not on file documented as of this encounter Visit Diagnoses Not on filedocumented in this encounter
--- OUTSIDE RECORDS SUMMARY | 2024-07-15 23:58 | XMS_ITS | Encounter Summary ---
Author Organization [facility] Address [facility] [facility] [place] [address] [place] [address] Care Team Providers Care Sales Trainer Name Role Phone Unavailable Primary Care Provider Unavailabl e Encounter Details Date Type Department Care Team (Late st Contact Info) Description 07/25/2018 Abstract [facility] [address] [place] [address] Shane Morales MD [address] [address] Social History Tobacco Use Types Packs/Day Years Used Date Smoking Tobacco: Never Assessed Comments Unknown Sex and Gender Information Value Date Recorded Sex Assigned at Not on file Legal Sex Female 5:52 PM FLORAL DESIGNER Gender Identity Not on file Sexual Orientation Not on file documented as of this encounter Plan of Treatment Not on file documented as of this encounter Procedures Procedure Name Priority Date/Time Associated Diagnosis Comments COMPREHENSIVE METABOLIC PANEL TIMED 07/26/2018 6:17 AM FLORAL DESIGNER COMPREHENSIVE METABOLIC PANEL TIMED 07/26/2018 2:08 AM FLORAL DESIGNER URINALYSIS WI REFLEX TO CULTURE STAT 07/26/2018 12:25 AM FLORAL DESIGNER CLOSTRIDIUM DIFFICILE STAT 07/26/2018 12:25 AM FLORAL DESIGNER URINE BACTERIA CULTURE Routine 9 12:25 AM FLORAL DESIGNER COMPREHENSIVE METABOLIC PANEL STAT 07/26/2018 12:00 AM FLORAL DESIGNER CBC W/DIFF AUTOMATED Routine 07/26/2018 12:00 AM FLORAL DESIGNER documented in this encounter Results * (ABNORMAL) COMPREHENSIVE METABOLIC PANEL (07/26/2018 6:17 AM FLORAL DESIGNER) SODIUM S/P/B 141 136 - 145 MMOL/L 07/26/2018 7:39 AM [facility] POTASSIUM S/P/B 3.0(L) 3.5 - 5.1 MMOL/L 07/26/2018 7:39 AM [facility] CHLORIDE S/P/B 104 98 - 107 MMOL/L 07/26/2018 7:39 AM [facility] CO2 24.4 21.0 - 32.0 MMOL/L 07/26/2018 7:39 AM [facility] GLUCOSE 109 70 - 140 MG/DL 07/26/2018 7:39 AM [facility] BUN 9 6 - 24 MG/DL 07/26/2018 7:39 AM [facility] CREATININE S/P/B 0.63 0.55 - 1.02 MG/DL 07/26/2018 7:39 AM [facility] CALCIUM S/P/B 8.8 8.4 - 10.5 MG/DL 07/26/2018 7:39 AM [facility] BILIRUBIN TOTAL S/P/B 0.5 0.2 - 1.0 MG/DL 07/26/2018 7:39 AM [facility] ALKALINE PHOSPHATASE S/P/B 59 41 - 108 U/L 07/26/2018 7:39 AM [facility] AST 35 15 - 37 U/L 07/26/2018 7:39 AM [facility] ALT 58 14 - 59 U/L 07/26/2018 7:39 AM FLORAL DESIGNER [facility] TOTAL PROTEIN S/P/B 7.6 6.4 - 8.2 G/DL 07/26/2018 7:39 AM [facility] ALBUMIN S/P/B 3.3(L) 3.4 - 5.0 G/DL 07/26/2018 7:39 AM [facility] ANION GAP 12.6 MMOL/L 07/26/2018 7:39 AM [facility] Comment:REFERENCE RANGE NOT ESTABLISHED OSMOLALITY (CALC) 291 MOSM/KG 07/26/2018 7:39 AM [facility] Comment:REFERENCE RANGE NOT ESTABLISHED EGFR NON-AFR. AMER. >90 >89 ML/MIN/1 .73 M2 07/26/2018 7:39 AM [facility] EGFR AFR. AMER. >90 >89 ML/MIN/1 .73 M2 07/26/2018 7:39 AM [facility] GFR NOTES THE ESTIMATED GFR IS CALCULATED USING THE 2009 CKD-EPI EQUATION. THE FOLLOWING CATEGORIES FOR GRADING RENAL FUNCTION ARE RECOMMENDED BY THE INTERNATIONAL SOCIETY OF NEPHROLOGY (KDIGO 2012 CLINICAL PRACTICE GUIDELINE). 07/26/2018 7:39 AM [facility] Comment: G1,NORMAL OR HIGH: >89 ml/min/1.73 m2G2,MILDLY DECREASED: 60-89 ml/min/1.73 m2G3A,MILDLY TO MODERATELY DECREASED: 45-59 ml/min/1.73 m2G3B,MODERATELY TO SEVERELY DECREASED: 30-44 ml/min/1.73 m2G4,SEVERELY DECREASED: 15-29 ml/min/1.73 m2G5,KIDNEY FAILURE: <15 ml/min/1.73 m2 PLASMA SPECIMEN / Unknown 07/26/2018 6:17 AM FLORAL DESIGNER 07/26/2018 7:21 AM FLORAL DESIGNER us Generic Conversion Md [facility] Final R esult [facility] [address] [place] [address], * (ABNORMAL) COMPREHENSIVE METABOLIC PANEL (07/26/2018 2:08 AM FLORAL DESIGNER) SODIUM S/P/B 141 136 - 145 MMOL/L 07/26/2018 3:42 AM [facility] POTASSIUM S/P/B 2.7(LL) 3.5 - 5.1 MMOL/L 07/26/2018 3:42 AM [facility] Comment:EKDK CALLED CRITICAL RESULTS AT 26Jul2018 TO AND READ BACK BY YAMILE CHLORIDE S/P/B 103 98 - 107 MMOL/L 07/26/2018 3:42 AM [facility] CO2 27.0 21.0 - 32.0 MMOL/L 07/26/2018 3:42 AM [facility] GLUCOSE 111 70 - 140 MG/DL 07/26/2018 3:42 AM [facility] BUN 10 6 - 24 MG/DL 07/26/2018 3:42 AM [facility] CREATININE S/P/B 0.69 0.55 - 1.02 MG/DL 07/26/2018 3:42 AM [facility] CALCIUM S/P/B 8.9 8.4 - 10.5 MG/DL 07/26/2018 3:42 AM [facility] BILIRUBIN TOTAL S/P/B 0.5 0.2 - 1.0 MG/DL 07/26/2018 3:42 AM [facility] ALKALINE PHOSPHATASE S/P/B 59 41 - 108 U/L 07/26/2018 3:42 AM [facility] AST 41(H) 15 - 37 U/L 07/26/2018 3:42 AM [facility] ALT 58 14 - 59 U/L 07/26/2018 3:42 AM [facility] TOTAL PROTEIN S/P/B 7.5 6.4 - 8.2 G/DL 07/26/2018 3:42 AM [facility] ALBUMIN S/P/B 3.2(L) 3.4 - 5.0 G/DL 07/26/2018 3:42 AM [facility] ANION GAP 11.0 MMOL/L 07/26/2018 3:42 AM [facility] Comment:REFERENCE RANGE NOT ESTABLISHED OSMOLALITY (CALC) 292 MOSM/KG 07/26/2018 3:42 AM [facility] Comment:REFERENCE RANGE NOT ESTABLISHED EGFR NON-AFR. AMER. >90 >89 ML/MIN/1 .73 M2 07/26/2018 3:42 AM [facility] EGFR AFR. AMER. >90 >89 ML/MIN/1 .73 M2 07/26/2018 3:42 AM [facility] GFR NOTES THE ESTIMATED GFR IS CALCULATED USING THE 2009 CKD-EPI EQUATION. THE FOLLOWING CATEGORIES FOR GRADING RENAL FUNCTION ARE RECOMMENDED BY THE INTERNATIONAL SOCIETY OF NEPHROLOGY (KDIGO 2012 CLINICAL PRACTICE GUIDELINE). 07/26/2018 3:42 AM [facility] Comment: G1,NORMAL OR HIGH: >89 ml/min/1.73 m2G2,MILDLY DECREASED: 60-89 ml/min/1.73 m2G3A,MILDLY TO MODERATELY DECREASED: 45-59 ml/min/1.73 m2G3B,MODERATELY TO SEVERELY DECREASED: 30-44 ml/min/1.73 m2G4,SEVERELY DECREASED: 15-29 ml/min/1.73 m2G5,KIDNEY FAILURE: <15 ml/min/1.73 m2 PLASMA SPECIMEN / Unknown 07/26/2018 2:08 AM FLORAL DESIGNER 07/26/2018 3:10 AM FLORAL DESIGNER us Generic Conversion Md [facility] Final R esult [facility] [place] [address], * CULTURE URINE (07/26/2018 12:25 AM FLORAL DESIGNER) SPEC DESCRIPTION URINE CLEAN CATCH 07/26/2018 2:23 AM [facility] SPECIAL REQUESTS NO SPECIAL REQUEST 07/26/2018 2:23 AM [facility] CULTURE RESULT FEW CONTAMINANTS 07/08 10:[address] [facility] URINE SPECIMEN OBTAINED BY CLEAN CATCH PROCEDURE / Unknown 07/26/2018 12:25 AM FLORAL DESIGNER 07/26/2018 2:23 AM FLORAL DESIGNER us Generic Conversion Md [facility] MICROBIOLOGY - GENERAL ORDERABLES Final Result Performing Organization Address [facility]/ZIP Co de Phone Number [facility] [address] [place] [address], [place] [phone] [facility] [address] [place] [address], [place] [phone] * CLOSTRIDIUM DIFFICILE (07/26/2018 12:25 AM FLORAL DESIGNER) SPEC DESCRIPTION STOOL 07/26/2018 1:38 AM [facility] SPECIAL REQUESTS NO SPECIAL REQUEST 07/26/2018 1:38 AM [facility] MOLECULAR ASSAY NEGATIVE 9 3:45 AM [facility] STOOL SPECIMEN / Unknown 07/26/2018 12:25 AM FLORAL DESIGNER 07/26/2018 2:35 AM FLORAL DESIGNER us Generic Conversion Md [facility] BODY FLUIDS AND STOOLS ORDERABLES Final Result Performing Organization Address [facility] Co de Phone Number [facility] [address] [place] [address], [place] [phone] * (ABNORMAL) URINALYSIS WI REFLEX TO CULTURE (07/26/2018 12:25 AM FLORAL DESIGNER) COLOR (U) AVIVA 07/26/2018 2:22 AM [facility] TRANSPARENCY CLOUDY 07/26/2018 2:22 AM [facility] SPECIFIC GRAVITY (U) 1.020 1.000 - 1.025 07/26/2018 2:22 AM [facility] U PH 6.0 5.0 - 8.0 07/26/2018 2:22 AM [facility] LEUKOCYTES (U) NEGATIVE NEGATIVE 07/26/2018 2:22 AM [facility] NITRITES NEGATIVE NEGATIVE 07/26/2018 2:22 AM [facility] PROTEIN (U) 1+(A) NEGATIVE 07/26/2018 2:22 AM [facility] URINE GLUCOSE NEGATIVE NEGATIVE 07/26/2018 2:22 AM [facility] KETONES MG/DL (U) TRACE(A) NEGATIVE 07/26/2018 2:22 AM [facility] UROBILINOGEN 0.2 <1.0 EU/DL 07/26/2018 2:22 AM [facility] BLOOD (U) TRACE(A) NEGATIVE 07/26/2018 2:22 AM [facility] WBC/HPF 0-5 0 - 5 /HPF 07/26/2018 2:22 AM [facility] RBC/HPF 0-5 0 - 5 /HPF 07/26/2018 2:22 AM [facility] EPI/HPF MANY /LPF 07/26/2018 2:22 AM [facility] BACTERIA (U) 3+ /HPF 07/26/2018 2:22 AM [facility] MUCUS PRESENT 07/26/2018 2:22 AM [facility] CRYSTALS (U) CA OXALATE /HPF 07/26/2018 2:22 AM [facility] BILIRUBIN (U) NEGATIVE NEGATIVE 07/26/2018 2:22 AM [facility] CULTURE & SENSITIVITY INDICATED? SPECIMEN SETUP FOR CULTURE 07/26/2018 2:22 AM [facility] OTHER (type in comments) 07/26/2018 12:25 AM FLORAL DESIGNER 07/26/2018 1:50 AM [facility] Comment:URINE SPECIMEN~URINE SPECIMEN us Generic Conversion Md [facility] URINE ORDERABLES Final Result [facility] [address] [place] [address], * (ABNORMAL) COMPREHENSIVE METABOLIC PANEL (07/26/2018 12:00 AM FLORAL DESIGNER) SODIUM S/P/B 140 136 - 145 MMOL/L 07/26/2018 1:36 AM [facility] POTASSIUM S/P/B 2.6(LL) 3.5 - 5.1 MMOL/L 07/26/2018 1:36 AM [facility] Comment:EKDK CALLED CRITICAL RESULTS AT 26Jul2018 TO AND READ BACK BY JENNIFER CHLORIDE S/P/B 101 98 - 107 MMOL/L 07/26/2018 1:36 AM [facility] CO2 23.8 21.0 - 32.0 MMOL/L 07/26/2018 1:36 AM [facility] GLUCOSE 135 70 - 140 MG/DL 07/26/2018 1:36 AM [facility] BUN 9 6 - 24 MG/DL 07/26/2018 1:36 AM [facility] CREATININE S/P/B 0.62 0.55 - 1.02 MG/DL 07/26/2018 1:36 AM [facility] CALCIUM S/P/B 9.2 8.4 - 10.5 MG/DL 07/26/2018 1:36 AM [facility] BILIRUBIN TOTAL S/P/B 0.6 0.2 - 1.0 MG/DL 07/26/2018 1:36 AM [facility] ALKALINE PHOSPHATASE S/P/B 66 41 - 108 U/L 07/26/2018 1:36 AM [facility] AST 42(H) 15 - 37 U/L 07/26/2018 1:36 AM [facility] ALT 63(H) 14 - 59 U/L 07/26/2018 1:36 AM [facility] TOTAL PROTEIN S/P/B 8.1 6.4 - 8.2 G/DL 07/26/2018 1:36 AM [facility] ALBUMIN S/P/B 3.4 3.4 - 5.0 G/DL 07/26/2018 1:36 AM [facility] ANION GAP 15.2 MMOL/L 07/26/2018 1:36 AM [facility] Comment:REFERENCE RANGE NOT ESTABLISHED OSMOLALITY (CALC) 291 MOSM/KG 07/26/2018 1:36 AM [facility] Comment:REFERENCE RANGE NOT ESTABLISHED EGFR NON-AFR. AMER. >90 >89 ML/MIN/1 .73 M2 07/26/2018 1:36 AM [facility] EGFR AFR. AMER. >90 >89 ML/MIN/1 .73 M2 07/26/2018 1:36 AM [facility] GFR NOTES THE ESTIMATED GFR IS CALCULATED USING THE 2009 CKD-EPI EQUATION. THE FOLLOWING CATEGORIES FOR GRADING RENAL FUNCTION ARE RECOMMENDED BY THE INTERNATIONAL SOCIETY OF NEPHROLOGY (KDIGO 2012 CLINICAL PRACTICE GUIDELINE). 07/26/2018 1:36 AM [facility] Comment: G1,NORMAL OR HIGH: >89 ml/min/1.73 m2G2,MILDLY DECREASED: 60-89 ml/min/1.73 m2G3A,MILDLY TO MODERATELY DECREASED: 45-59 ml/min/1.73 m2G3B,MODERATELY TO SEVERELY DECREASED: 30-44 ml/min/1.73 m2G4,SEVERELY DECREASED: 15-29 ml/min/1.73 m2G5,KIDNEY FAILURE: <15 ml/min/1.73 m2 PLASMA SPECIMEN / Unknown 07/26/2018 07/26/2018 1:03 AM FLORAL DESIGNER us Generic Conversion Md [facility] Final R esult [facility] [place] [address], * CBC W/DIFF AUTOMATED (07/26/2018 12:00 AM FLORAL DESIGNER) WBC 6.0 4.5 - 10.8 x10'3/uL 07/26/2018 1:16 AM [facility] RBC 4.11 4.10 - 5.40 x10'6/uL 07/26/2018 1:16 AM [facility] HGB 12.4 12.0 - 16.0 G/DL 07/26/2018 1:16 AM [facility] HCT 37.2 36.0 - 47.0 % 07/26/2018 1:16 AM [facility] MCV 90.5 78.0 - 100.0 FL 07/26/2018 1:16 AM FLORAL DESIGNER [facility] MCH 30.2 27.0 - 31.0 PG 07/26/2018 1:16 AM [facility] MCHC 33.3 33.0 - 36.0 G/DL 07/26/2018 1:16 AM [facility] RDW 13.3 11.5 - 14.5 % 07/26/2018 1:16 AM [facility] PLT 262 150 - 350 x10'3/uL 07/26/2018 1:16 AM [facility] MPV 10.3 7.4 - 10.4 FL 07/26/2018 1:16 AM [facility] SEG NEUTROPHILS 68 % 9 1:41 AM [facility] LYMPHOCYTES 21 % 07/26/2018 1:41 AM [facility] MONOCYTES 11 % 07/26/2018 1:41 AM [facility] ABS. NEUTROPHILS CALCULATED 4.08 1.60 - 8.30 x10'3/uL 07/26/2018 1:41 AM FLORAL DESIGNER [facility] ABS. LYMPHOCYTES 1.26 0.80 - 4.70 x10'3/uL 07/26/2018 1:41 AM [facility] ABS. MONOCYTES 0.66 0.10 - 1.50 x10'3/uL 07/26/2018 1:41 AM [facility] PLT MORPH. NORMAL 07/26/2018 1:41 AM [facility] RBC MORPHOLOGY NORMAL 07/26/2018 1:41 AM [facility] OTHER (type in comments) 07/26/2018 07/26/2018 1:03 AM FLORAL DESIGNER Comment:WHOLE BLOOD SAMPLE us Generic Conversion Md [facility] Final R esult [facility] [address] [place] [address], documented in this encounter Visit Diagnoses Diagnosis Diarrhea documented in this encounter
--- OUTSIDE RECORDS SUMMARY | 2024-07-15 23:58 | XMS_ITS | Encounter Summary ---
Author Organization [facility] Address [facility] [place] [address] [place] [address] Care Team Providers Care Workforce Advisor Name Role Phone Cristy Guan MD Primary Care Provider [phone] Reason for Referral * Imaging (Emergency) - Closed Specialty Diagnoses / Procedures Referred By Contac t Referred To Contact RADIOLOGY Procedures CTA CHEST+CT ABD+PEL W Russell Olivares MD Phone: tel: fax: Referral ID Status Reason Start Date Expiration Date Visits Re quested Visits Authorized [id number] Closed 11/21/2019 12/21/2020 1 1 * Imaging (Emergency) - Closed Specialty Diagnoses / Procedures Referred By Contac t Referred To Contact RADIOLOGY Procedures CT HEAD WO CON Russell Grimaldo MD Phone: tel: fax: Referral ID Status Reason Start Date Expiration Date Visits Re quested Visits Authorized [id number] Closed 11/21/2019 12/21/2020 1 1 Reason for Visit * Reason Comments Vomiting Headache * Auth/Cert Specialty Diagnoses / Procedures Referred By Contac t Referred To Contact Diagnoses Dehydration Lactic acidosis Gastroenteritis Vomiting Gastroenteritis Lactic acid acidosis Referral ID Status Reason Start Date Expiration Date Visits Re quested Visits Authorized [id number] 1 1 Encounter Details Date Type Department Care Team (Late st Contact Info) Description 11/21/2019 6:01 AM CDT - 11/23/2019 2:45 PM CDT Hospital Encounter [facility] [address] [facility] [place] [place] [address] Russell Grimaldo MD [address] [place] [address] Delilah Thompson MD [address], [place] [id number] Vamsi Degroot MD [address] [facility] [place] [address] Vomiting; Headache Discharge Disposition: Home or Self Care (Routine [...] Binge Drinking Not on file 11/04 Comments Unknown Sex and Gender Information Value Date Recorded Sex Assigned at Not on file Legal 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 No / Unsure 11/21/2019 6:50 AM CDT documented as of this encounter Last Filed Vital Signs Vital Sign Reading Time Taken Comments Blood Pressure 128/73 11/23/2019 2:25 PM CDT Pulse 69 11/23/2019 2:25 PM CDT Temperature 37.3 ??C (99.1 ??F) 11/23/2019 2:25 PM CD T Respiratory Rate 18 11/23/2019 2:25 PM CDT Oxygen Saturation 94% 11/23/2019 2:25 PM CDT Inhaled Oxygen Concentration - - Weight 189.1 kg (417 lb) 11/23/2019 6:46 AM CDT Height 162.6 cm (5' 4 ) 11/21/2019 9:27 AM CDT Body Mass Index 71.58 11/21/2019 9:27 AM CDT documented in this encounter Functional Status * Question Answer Date of Assessment Author Status Do you have serious difficulty walking or climbing stairs? No 11/21/2019 9:39 AM CDT Marco Gordon RN Active * Question Answer Date of Assessment Author Status Do you have difficulty dressing or bathing? No 11/21/2019 9:39 AM MADDYT Ruddy Gordon RN Active Because of a physical, mental, or emotional condition, do you have difficulty doing errands alone such as visiting a doctor's office or shopping? No 11/21/2019 9:39 AM MADDYT Marco Gordon RN Active * RETIRED Are you deaf or do [...] 9:39 AM MADDYT Corrina Gordon RN Active * Do you [...] as of this encounter Mental Status * Question Answer Entry Date Author Status Because of a physical, mental, or emotional condition, do you have serious difficulty concentrating, remembering, or making decisions? No 11/21/2019 9:39 AM Carla Arteaga RN Active * Because of a physical, mental, or emotional condition, do you have serious difficulty concentrating, remembering, or making decisions? Answer Entry Date Author Status No 11/21/2019 9:39 AM CDT Corrina Gordon RN Active documented in this encounter Discharge Summaries * Vamsi Degroot MD - 11/23/2019 1:13 PM CDT Physician Discharge Summary Patient ID: Althea Kong. female. 1965. Admit date: 11/21/2019 6:01 AM Discharge date and time: 11/23/19 Admitting Physician: Vamsi Degroot MD Primary Care Physician: CRISTY GUAN MD Attending Provider: Vamsi Degroot MD Discharge Physician: Dr. Degroot Primary Diagnoses: Carbon Monoxide poisoning Secondary Diagnosis: Lactic acidosis Hypertension Elevated CO level Natural gas exposure Nausea vomiting Headache Admission Condition: good Discharged Condition: Good Code Status: Full Code Indication for Admission: Chief Complaint Patient presents with ??? Vomiting ??? Headache Reason for hospitalization: Nausea, vomiting, and diarrhea Hospital Course: Mr. Althea Kong was admitted on 11/21/2019 6:01 AM for complaints of nausea, vomiting, and diarrhea. Initial assessment in ER showed a lactic acid of 4.6 therefore she was admitted for further observation and IV hydration. She also had intermittent headache while hospitalized. Her CT abdomen/pelvis was negative. C. difficile negative. Head CT negative for any acute issues. Laboratory findings unremarkable. Dr. Diaz seen the patient and given her history underwent a EGD today showed gastritis and multiple healing ulcers. She was placed on omeprazole and Carafate. On interview this a.m. she discovered from her that they had a gas and Freon leak from their furnace. CO level was checked and was slightly elevated at 2.2% (normal 0 to 1.5%). No ABG was performed on admission givenher lack of respiratory symptoms. Her symptoms of headache, nausea, vomiting, and dizziness are likely result of the carbon monoxide. She reports that her gases been shut off in the heating gentlemanis taking care of the Freon issue. She was also tested for COVID per nasopharyngeal swab for her GIsymptoms and it was negative. She is being discharged in stable condition is to follow-up with her primary care in 1 week. Consults: none Significant Diagnostic Studies: Radiology Results (Last 30 days) 11/21/[address] HEAD WO CON Final result Impression: IMPRESSION: No acute intracranial abnormality is identified. Alfonso Tripathi M.D. Neuroradiologist Electronically signed by: Alfonso Tripathi M.D. 11/21/2019 6:22:00 AM 11/21/19 0610 CTA CHEST+CT ABD+PEL W CON Final result Impression: IMPRESSION: No acute abnormalities in the chest, abdomen or pelvis. Vascular structures are normal without aneurysm or dissection. Electronically signed by: Reza Avery M.D. 11/21/2019 6:33:00 AM Vital Signs at Discharge: Filed Vitals: 11/23/19 1200 11/23/19 1215 11/23/19 1230 11/23/19 1245 BP: 138/65 (!) 143/61 (!) 151/73 (!) 150/72 Pulse: 73 67 65 62 Resp: 18 16 18 18 Temp: 98.3 ??F (36.8 ??C) TempSrc: Tympanic SpO2: 98% 96% 96% 99% Weight: Height: Last labs past 24 hours: Recent Results (from the past 24 hour(s)) C-REACTIVE PROTEIN Collection Time: 11/23/19 5:25 AM Result Value Ref Range C-REACTIVE PROTEIN <0.05 <0.30 mg/dL SED RATE, ERYTHROCYTE (ESR) Collection Time: 11/23/19 5:25 AM Result Value Ref Range ESR 15 0 - 30 MM/HR CBC W/DIFF AUTOMATED Collection Time: 11/23/19 5:25 AM Result Value Ref Range WBC 4.4 (L) 4.5 - 10.8 x10'3/uL RBC 3.52 (L) 4.10 - 5.40 x10'6/uL HGB 10.7 (L) 12.0 - 16.0 G/DL HCT 32.9 (L) 36.0 - 47.0 % MCV 93.5 78.0 - 100.0 FL MCH 30.4 27.0 - 31.0 PG MCHC 32.5 (L) 33.0 - 36.0 G/DL RDW 12.8 11.5 - 14.5 % PLT 219 150 - 350 x10'3/uL MPV 10.9 (H) 7.4 - 10.4 FL Differential Comment NORMAL REFERENCE RANGE NOT ESTABLISHED FOR THE PROPORTIONAL LEUKOCYTE DIFFERENTIAL. SEG NEUTROPHILS 59.0 % LYMPHOCYTES 29.1 % MONOCYTES 9.6 % EOSINOPHILS 1.4 % BASOPHILS 0.7 % IMMATURE GRANS 0.2 % NRBC 0.0 % ABS. NEUTROPHILS 2.57 1.60 - 8.30 x10'3/uL ABS. LYMPHOCYTES 1.27 0.80 - 4.70 x10'3/uL ABS. MONOCYTES 0.42 0.00 - 1.50 x10'3/uL ABS. EOSINOPHILS 0.06 0.00 - 0.40 x10'3/uL ABS. BASOPHILS 0.03 0.00 - 0.20 x10'3/uL ABS. IMMATURE GRANULOCYTES 0.01 0.00 - 0.03 x10'3/uL ABS. NUCLEATED RBC'S 0.00 0.00 x10'3/uL COMPREHENSIVE METABOLIC PANEL Collection Time: 11/23/19 5:25 AM Result Value Ref Range SODIUM 143 136 - 145 MMOL/L POTASSIUM 3.6 3.5 - 5.1 MMOL/L CHLORIDE S/P/B 106 98 - 107 MMOL/L CO2 31.1 21.0 - 32.0 MMOL/L GLUCOSE 100 (H) 70 - 99 MG/DL BUN 6 6 - 24 MG/DL CREATININE S/P/B 0.65 0.55 - 1.02 MG/DL CALCIUM 8.6 8.4 - 10.5 MG/DL BILIRUBIN TOTAL S/P/B 0.6 0.2 - 1.0 MG/DL ALK PHOS 43 41 - 108 U/L AST 20 15 - 37 U/L ALT 33 14 - 59 U/L TOTAL PROTEIN 6.6 6.4 - 8.2 G/DL ALBUMIN S/P/B 3.3 (L) 3.4 - 5.0 G/DL ANION GAP 5.9 5.0 - 15.0 MMOL/L OSMOLALITY (CALC) 294 MOSM/KG eGFR Non-Afr. Amer. >90 >89 ML/MIN/1.73 M2 eGFR Afr. Amer. >90 >89 ML/MIN/1.73 M2 GFR NOTES GFR REFERENCES: CARBON MONOXIDE, QNT Collection Time: 11/23/19 12:00 PM Result Value Ref Range Carbon Monoxide/COHB 2.2 (H) 0.0 - 1.5 % Discharge Medications: Medication List START taking these medications omeprazole 40 MG capsule Commonly known as: PriLOSEC Take 1 capsule (40 mg total) by mouth 2 (two) times a day for 30 days. sucralfate 1 G tablet Commonly known as: Carafate Take 1 tablet (1 g total) by mouth 4 (four) times daily for 30 days. CONTINUE taking these medications aspirin 81 MG chewable tablet atenolol 100 MG tablet Commonly known as: TENORMIN Notes to patient: Already had dose today- start tomorrow escitalopram 10 MG tablet Commonly known as: LEXAPRO gabapentin 300 MG capsule Commonly known as: NEURONTIN hydroCHLOROthiazide 25 MG tablet Commonly known as: HYDRODIURIL LORazepam 0.5 MG tablet Commonly known as: ATIVAN losartan 100 MG tablet Commonly known as: COZAAR oxybutynin XL 5 MG 24 hr tablet Commonly known as: DITROPAN-XL Where to Get Your Medications These medications were sent to [id number] [address] [facility] [address] [id number] ?? omeprazole 40 MG capsule ?? sucralfate 1 G tablet Medications Discontinued during this hospitalization: None Disposition: discharged to home Safety of home heating AC system is being managed by patient's heating ac repair Durable Medical Equipment Needed: Patient Instructions: Activity: activity as tolerated Diet: regular diet Wound Care: none needed Follow-up appointments: Follow-up with PCP in 1 week. Findings that require further workup: Followup Lab Orders: Colon cancer screening recommended to her to be done as an outpatient Time Spent on Discharge Less than 30 minutes Signed: RIKKI STEEL documented in this encounter Discharge Instructions * Attachments The following attachments cannot be sent through Care Everywhere. * Upper GI Endoscopy Discharge Instructions (Swedish) * Gastritis Discharge Instructions (Swedish) documented in this encounter Medications at Time of Discharge aspirin 81 MG chewable tablet Chew 1 tablet (81 mg total) by mouth daily. gabapentin 300 MG capsule Take 1 capsule (300 mg total) by mouth 2 (two) times a day. atenolol 100 MG tablet Take 100 mg by mouth nightly. 03/12/2020 escitalopram 5 MG tablet Take 5 mg by mouth daily. 10/01/2022 hydroCHLOROthiazi de 25 MG tablet Take 25 mg by mouth every morning. 03/12/2020 LORazepam 0.5 MG tablet Take 1-2 tablets (0.5-1 mg total) by mouth nightly as needed for Anxiety. 02/03/2024 losartan 100 MG tablet Take 100 mg by mouth daily. 10/01/2022 omeprazole 40 MG capsule Take 1 capsule (40 mg total) by mouth 2 (two) times a day for 30 days. 60 capsule 3 11/23/2019 12/23/2019 oxybutynin XL 5 MG 24 hr tablet Take 10 mg by mouth 2 (two) times a day. 03/06/2020 sucralfate (CARAFATE) 1 G tablet Take 1 tablet (1 g total) by mouth 4 (four) times daily for 30 days. 120 tablet 3 11/23/2019 12/23/2019 documented as of this encounter Progress Notes * Jessica Parra RN - 11/23/2019 10:34 AM CDT See notes under each care plan * VIANNEY Steel- - 11/23/2019 9:58 AM CDT Daily Progress Note Althea Kong is a 54-year-old female patient. Primary Care Provider: CRISTY GUAN MD Attending Provider: Vamsi Degroot MD LOS: 2 Days Reason for admission: 11/21/2019 6:01 AM nausea, diarrhea, and abdominal pain Subjective: No headache today. Still has some upper left quadrant reproducible abdominal pain. No diarrhea since admission. Patient reports she found out this morning that she has a gas and Freon leak in her home through her furnace. Assessment/Plan: 1. Gastroenteritis - Had dry heaves yesterday. Bowel movements have returned to normal no further diarrhea. Dr. Diaz evaluated patient's morning and plans for EGD today. 2. Lactic acidosis -resolved. We will stop IV fluids. 3. Abdominal pain - still has left upper quadrant abdominal pain. CT abd/pelvis was normal. WBC normal. Getting EGD today. COVID testing negative. 4. Headache -no headache today. Head CT negative. Continue with supportive tylenol. Possibly related to gas exposure from home prior to admission. Will check carbon monoxide level however this will likely be negative given her lack of symptoms and 2 days out from last exposure. 5. Elevated lipids -ASCVD 10 year risk estimated is 4.8% Would not benefit from statin at this time. Plan: EGD today Check carbon monoxide level. Likely discharge home. Patient Active Problem List Diagnosis ??? Gastroenteritis ??? Lactic acid acidosis ??? Positive D dimer ??? Dizziness of unknown cause ??? Diarrhea ??? Vomiting ??? EKG, abnormal ??? [MAR Hold] aspirin 81 mg Oral Daily ??? [MAR Hold] carvedilol 12.5 mg Oral BID ??? [MAR Hold] citalopram 10 mg Oral Daily ??? [MAR Hold] gabapentin 300 mg Oral nightly ??? [MAR Hold] hydroCHLOROthiazide 25 mg Oral QAM ??? [MAR Hold] losartan 100 mg Oral Daily ??? [MAR Hold] oxybutynin 5 mg Oral BID ??? lactated ringers [MAR Hold] acetaminophen, [MAR Hold] LORazepam, [MAR Hold] ondansetron, [MAR Hold] traMADol No Known Allergies Review of Systems: No shortness of breath No chest pain Objective: Blood pressure 136/60, pulse 73, temperature 99 ??F (37.2 ??C), temperature source Tympanic, resp. rate 18, height 5' 4 (1.626 m), weight (!) 189.1 kg (417 lb), SpO2 95 %. Last 5 Recorded Weights 11/21/19 0927 11/22/19 0435 11/23/19 0646 Weight: (!) 188.6 kg (415 lb 12.8 oz) (!) 190.1 kg (419 lb) (!) 189.1 kg (417 lb) Recent Labs Lab 11/23/19 0525 WBC 4.4* HGB 10.7* PLT 219 Recent Labs Lab 11/22/19 0605 11/23/19 0525 NA 142 143 K 3.8 3.6 CL 107 106 CO2 27.6 31.1 AGAP 7.4 5.9 BUN 9 6 CR 0.63 0.65 CHOL 192 -- TRI 192* -- HDL 35* -- LDL 119* -- GFRNON >90 >90 GFR >90 >90 GLU 101* 100* CA 8.5 8.6 ALB 3.1* 3.3* TBIL 0.6 0.6 ALKP 41 43 AST 19 20 ALT 28 33 Recent Labs Lab 11/21/19 0250 INR 1.0 Results for orders placed or performed during the hospital encounter of 11/21/19 (from the past 8736 hour(s)) CULTURE, BACTERIA, BLOOD Collection Time: 11/21/19 2:50 AM Result Value Ref Range Spec. Description BLOOD Special Requests: NO SPECIAL REQUEST Culture Result: NO GROWTH 1 DAY CULTURE, BACTERIA, BLOOD Collection Time: 11/21/19 2:40 AM Result Value Ref Range Spec. Description BLOOD Special Requests: NO SPECIAL REQUEST Culture Result: NO GROWTH 1 DAY No results found for this visit on 11/21/19 (from the past 8736 hour(s)). TROPONIN I Date Value Ref Range Status 11/21/2019 <0.017 0.000 - 0.056 ng/mL. Final Comment: ALTHOUGH VALUES OVER 0.056 ARE CONSIDERED ABNORMAL AND REPRESENT MYOCARDIAL DAMAGE,A CUTOFF OF 0.600 HAS BEEN RECOMMENDED REPRESENTING ACUTE MYOCARDIAL INFARCTION. 11/21/2019 <0.017 0.000 - 0.056 ng/mL. Final Comment: ALTHOUGH VALUES OVER 0.056 ARE CONSIDERED ABNORMAL AND REPRESENT MYOCARDIAL DAMAGE,A CUTOFF OF 0.600 HAS BEEN RECOMMENDED REPRESENTING ACUTE MYOCARDIAL INFARCTION. estimated creatinine clearance is 169.5 mL/min (based on SCr of 0.65 mg/dL). Intake/Output Summary (Last 24 hours) at 11/23/2019 0958 Last data filed at 11/23/2019 0858 Gross per 24 hour Intake 4100 ml Output 4875 ml Net -775 ml Physical Exam Rate/Rhythm: regular rhythm . Heart Sounds: normal heart sounds, normal S1 and normal S2 no murmur. . PMI: . Pulses: Right Carotid pulses 2+, Left Carotid pulses 2+, Right Radial pulses 2+, Left Radial pulses2+, Right DP pulses 1+, Left DP pulses 1+, negative for edema Constitutional: healthy appearance . Neck: normal range of motion . Pulmonary/Chest Wall: effort normal and breath sounds normal . HEENT: no nasal discharge. . Abdomen: abdomen soft and bowel sounds normal . Eyes: pupils equal, round, and reactive to light and conjunctivae normal. Neurological: alert and oriented x 3, . Skin: dry and warm . Musculoskeletal: normal ROM Cardiovascular Comments: RIKKI STEEL 11/23/2019 Cosigned by Vamsi Degroot MD at 11/24/2019 9:21 AM CDT Associated attestation - Vamsi Degroot MD - 11/24/2019 9:21 AM CDT Add to diagnosis: Carbon Monoxide poisoning. I interviewed and performed an examination of the patient. I reviewed test results, and discussed care, management, and the orders to be entered with the Advanced Practice Provider (ALIX). Signed: Vamsi Degroot M.D. * Hiral Hunt RN - 11/22/2019 10:26 PM CDT IV infusing, monitor I & O, daily wt, no N/V, H/A pain present, ice applied to head and neck. * RIKKI Steel - 11/22/2019 10:37 AM CDT Daily Progress Note Althea Kong is a 54-year-old female patient. Primary Care Provider: CRISTY GUAN MD Attending Provider: Vamsi Degroot MD LOS: 1 Days Reason for admission: 11/21/2019 6:01 AM nausea, diarrhea, and abdominal pain Subjective: Has great headache this AM. Still has some abdominal pain. Assessment/Plan: 1. Gastroenteritis - Has not had any further bowel movements since 11/20/19 at 6pm. Nausea has also resolved as of yesterday evening. 2. Lactic acidosis - elevated on admission at 4.6, repeat was down to 2 yesterday. She did receive 3 L IVFs plus remains on continuous LR at 125ml/hr. 3. Abdominal pain - still has left upper quadrant abdominal pain. CT abd/pelvis was normal. WBC normal. No obvious cause for pain. Consider GI eval if COVID 19 testing negative. 4. Headache - Head CT negative. Continue with supportive tylenol 5. Elevated lipids -ASCVD 10 year risk estimated is 4.8% Would not benefit from statin at this time. Plan: Continue IVFs Transfer if COVID positive Likely DC tomorrow if COVID 19 negative. Patient Active Problem List Diagnosis ??? Gastroenteritis ??? Lactic acid acidosis ??? Positive D dimer ??? Dizziness of unknown cause ??? Diarrhea ??? Vomiting ??? EKG, abnormal ??? aspirin 81 mg Oral Daily ??? carvedilol 12.5 mg Oral BID ??? citalopram 10 mg Oral Daily ??? enoxaparin 40 mg Subcutaneous Q24H ??? gabapentin 300 mg Oral nightly ??? hydroCHLOROthiazide 25 mg Oral QAM ??? losartan 100 mg Oral Daily ??? oxybutynin 5 mg Oral BID ??? lactated ringers 125 mL/hr at 11/22/19 0506 acetaminophen, LORazepam, ondansetron No Known Allergies Review of Systems: Headache No shortness of breath No chest pain Objective: Blood pressure (!) 144/67, pulse 66, temperature 98.1 ??F (36.7 ??C), temperature source Tympanic, resp. rate 20, height 5' 4 (1.626 m), weight (!) 190.1 kg (419 lb), SpO2 100 %. Last 5 Recorded Weights 11/21/19 0927 11/22/19 0435 Weight: (!) 188.6 kg (415 lb 12.8 oz) (!) 190.1 kg (419 lb) Recent Labs Lab 11/22/19 0605 WBC 4.2* HGB 10.4* PLT 204 Recent Labs Lab 11/22/19 0605 NA 142 K 3.8 CL 107 CO2 27.6 AGAP 7.4 BUN 9 CR 0.63 CHOL 192 TRI 192* HDL 35* LDL 119* GFRNON >90 GFR >90 GLU 101* CA 8.5 ALB 3.1* TBIL 0.6 ALKP 41 AST 19 ALT 28 Recent Labs Lab 11/21/19 0250 INR 1.0 No results found for this visit on 11/21/19 (from the past 8736 hour(s)). No results found for this visit on 11/21/19 (from the past 8736 hour(s)). TROPONIN I Date Value Ref Range Status 11/21/2019 <0.017 0.000 - 0.056 ng/mL. Final Comment: ALTHOUGH VALUES OVER 0.056 ARE CONSIDERED ABNORMAL AND REPRESENT MYOCARDIAL DAMAGE,A CUTOFF OF 0.600 HAS BEEN RECOMMENDED REPRESENTING ACUTE MYOCARDIAL INFARCTION. 11/21/2019 <0.017 0.000 - 0.056 ng/mL. Final Comment: ALTHOUGH VALUES OVER 0.056 ARE CONSIDERED ABNORMAL AND REPRESENT MYOCARDIAL DAMAGE,A CUTOFF OF 0.600 HAS BEEN RECOMMENDED REPRESENTING ACUTE MYOCARDIAL INFARCTION. estimated creatinine clearance is 175.5 mL/min (based on SCr of 0.63 mg/dL). Intake/Output Summary (Last 24 hours) at 11/22/2019 1038 Last data filed at 11/22/2019 0955 Gross per 24 hour Intake 1850 ml Output 1750 ml Net 100 ml Physical Exam Rate/Rhythm: regular rhythm . Heart Sounds: normal heart sounds, normal S1 and normal S2 no murmur. . PMI: . Pulses: Right Carotid pulses 2+, Left Carotid pulses 2+, Right Radial pulses 2+, Left Radial pulses2+, Right DP pulses 1+, Left DP pulses 1+, negative for edema Constitutional: healthy appearance . Neck: normal range of motion . Pulmonary/Chest Wall: effort normal and breath sounds normal . HEENT: no nasal discharge. . Abdomen: abdomen soft and bowel sounds normal . Eyes: pupils equal, round, and reactive to light and conjunctivae normal. Neurological: alert and oriented x 3, . Skin: dry and warm . Musculoskeletal: normal ROM Cardiovascular Comments: RIKKI STEEL 11/22/2019 Cosigned by Vamsi Degroot MD at 11/23/2019 8:37 AM CDT Associated attestation - Vamsi Degroot MD - 11/23/2019 8:37 AM CDT I interviewed and performed an examination of the patient. I reviewed test results, and discussed care, management, and the orders to be entered with the Advanced Practice Provider (ALIX). Signed: Vamsi Degroot M.D. * Shonna Us - 11/22/2019 9:34 AM CDT Patient lives at home with her . She is independent at home and still works. She does not use any DME's. She has a CPAP machine. There is no additional help in the home. Patient's willtransport home at discharge. No other discharge needs at this time. SW will continue to follow. 11/22/19 0928 Referral Data Referral Reason Discharge Planning Source of Information Patient Patient Information OB Patient < 19 yrs old No Primary Caregiver Self Support System Immediate family Baseline ADL's Functional Status Independent Living Arrangements Spouse/significant other Type of Residence Private residence Ambulation Assistance No Bathing/Grooming Assistance No Dressing Assistance No Behavior Oriented Communication Talks;Understands speaking;Understands Swedish Socioeconomic Needs Caregiver Needed No At Risk of Abuse or Neglect No Adequate Resources Yes Psychological Needs: Mental health concerns No Suspected Drug or Alcohol Abuse No Inappropriate Patient/Family Behaviors No Difficult Adjustment to Diagnosis No Recent Hospitalization Recent Hospitalization within 30 days No Anticipated Discharge Needs Change in Living Arrangements No In-Home Care or Equipment No Vocational and/or Role Loss No Inability to Complete ADL's No Anticipated DC Plan Living Arrangements Spouse/significant other Support Systems Spouse/significant other Type of Residence Private residence Assistance Needed No Patient expects to be discharged to: Home * Carla Gordon RN - 11/21/2019 1:51 PM CDT Resting in bed wearing home c-pap. documented in this encounter H&P Notes * Caroline Diaz MD - 11/23/2019 10:27 AM CDT HISTORY AND PHYSICAL INTERVAL NOTE: I have reviewed Althea Kong History & Physical which was performed within the past 30 days.After examining Althea Kong, no change has occurred in the patient's condition since the H&P was completed. Informed Consent Discussion: Potential benefits, risks, and side effects of the patient's procedure/surgery; the likelihood of the patient achieving his or her goals; and any potential problems that might occur during recuperation were discussed with the patient/family/personal bilingual call center representative. Reasonable alternatives to the patient's proposed procedure/surgery including benefits, risks, and side effects related to the alternatives and the risks related to not receiving the proposed care were also discussed with the patient/family/personal bilingual call center representative. Questions were answered and the patient/family/personal bilingual call center representative verbalized understanding and desires to proceed. Source Note - Caroline Diaz MD - 11/23/2019 7:35 AM CDT Consults Attending Provider: Vamsi Degroot MD PCP: CRISTY GUAN MD Althea Kong is an 54-year-old female. Reason for Admission: Lactic acid acidosis Gastroenteritis Positive D dimer Dizziness of unknown cause Diarrhea Vomiting EKG, abnormal History of Present Illness: Vomiting This is a new problem. The current episode started in the past 7 days. The problem occurs 5 to 10 times per day. The problem has been gradually improving. There has been no fever. Associated symptomsinclude abdominal pain, diarrhea and headaches. Headache Associated symptoms include abdominal pain, nausea and vomiting. Past Medical History: Diagnosis Date ??? Allergies ??? Anxiety ??? Depression ??? Hypertension ??? Neuropathy ??? Obesity ??? Sleep apnea ??? Urinary bladder incontinence Allergies: No Known Allergies Social History Tobacco Use ??? Smoking status: Never Smoker ??? Smokeless tobacco: Never Used Substance Use Topics ??? Alcohol use: Never Frequency: Never Past Surgical History: Procedure Laterality Date ??? SECTION, CLASSIC ??? HYSTERECTOMY Family History Problem Relation Name Age of Onset ??? Heart Disease Mother ??? Kidney Disease Mother ??? Heart Disease Father ??? Diabetes Brother Travel Exposure: No current facility-administered medications on file prior to encounter. Current Outpatient Medications on File Prior to Encounter Medication Sig ??? aspirin 81 MG chewable tablet Chew 81 mg by mouth daily. ??? atenolol 100 MG tablet Take 100 mg by mouth nightly. ??? escitalopram 10 MG tablet Take 5 mg by mouth daily. ??? gabapentin 300 MG capsule Take 300 mg by mouth nightly. ??? hydroCHLOROthiazide 25 MG tablet Take 25 mg by mouth every morning. ??? LORazepam 0.5 MG tablet Take 0.5 mg by mouth every 6 (six) hours as needed for Anxiety. ??? losartan 100 MG tablet Take 100 mg by mouth daily. ??? oxybutynin XL 5 MG 24 hr tablet Take 10 mg by mouth 2 (two) times a day. Principal Problem: Lactic acid acidosis SNOMED CT(R): LACTIC ACIDOSIS Active Problems: Gastroenteritis SNOMED CT(R): GASTROENTERITIS Positive D dimer SNOMED CT(R): D-DIMER ABOVE REFERENCE RANGE Dizziness of unknown cause SNOMED CT(R): DIZZINESS OF UNKNOWN CAUSE Diarrhea SNOMED CT(R): DIARRHEA Vomiting SNOMED CT(R): VOMITING EKG, abnormal SNOMED CT(R): ELECTROCARDIOGRAM ABNORMAL Blood pressure 137/59, pulse 65, temperature 98.2 ??F (36.8 ??C), temperature source Tympanic, resp. rate 16, height 5' 4 (1.626 m), weight (!) 189.1 kg (417 lb), SpO2 98 %. Review of Systems Constitutional: Negative. Respiratory: Negative. Cardiovascular: Negative. Gastrointestinal: Positive for abdominal pain, constipation, diarrhea, nausea and vomiting. Neurological: Positive for headaches. Physical Exam Constitutional: She appears well-developed. Cardiovascular: Normal rate. Pulmonary/Chest: Effort normal. Abdominal: There is tenderness. Assessment: Discussed with patient and reviewed chart. Covid swab negative. Discussed risks and benefits of EGDand patient would like to proceed. Has not had lovenox shot this morning. Had a cracker 1 hour ago.Should be able to perform EGD at the end of morning cases this morning. Plan: Proceed with EGD as soon as possible. CAROLINE DIAZ MD 11/23/2019 * Vamsi Degroot MD - 11/21/2019 12:45 PM CDT Hospital History & Physical - VAMSI DEGROOT MD Provider: VAMSI DEGROOT MD PCP: CRISTY GUAN MD SUBJECTIVE: Chief Complaint: Dizziness, headache, diarrhea and vomiting HPI: Althea Kong is 54-year-old female, who presented to the ER with severe vomiting, which started around 11:30 pm last night. She also had associated dizziness and headache and diarrhea that startedyesterday around 2 pm.. She says she vomited around 10-20 times. She denies any travel history, arthropod exposure, Covid known exposure. 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 She said she was not aware of any Covid positive patients in any of those facilities. She did take amoxacillin for a sinus infection about a month ago. The ER doctors (two with overlapping change of shift) called me for admission. and Dr. Thompson were both requested by me to confirm that neither they, nor the [facility] Covid Command Team felt that this patient is a PUI such that the patient should be transferred to [place] for care. They all agreed that she was not a PUI and that she could and should remain at [facility] for care. Her usual primary care physician is in [place], but she did not want to got to that hospital for care. No Known Allergies Prior to Admission medications Medication Sig Start Date End Date Taking? Authorizing Provider aspirin 81 MG chewable tablet Chew 81 mg by mouth daily. Yes Doc Abstract atenolol 100 MG tablet Take 100 mg by mouth nightly. Yes Doc Abstract escitalopram 10 MG tablet Take 5 mg by mouth daily. Yes Doc Abstract gabapentin 300 MG capsule Take 300 mg by mouth nightly. Yes Doc Abstract hydroCHLOROthiazide 25 MG tablet Take 25 mg by mouth every morning. Yes Doc Abstract LORazepam 0.5 MG tablet Take 0.5 mg by mouth every 6 (six) hours as needed for Anxiety. Yes Doc Abstract losartan 100 MG tablet Take 100 mg by mouth daily. Yes Doc Abstract oxybutynin XL 5 MG 24 hr tablet Take 10 mg by mouth 2 (two) times a day. Yes Doc Abstract Past Medical History: Diagnosis Date ??? Allergies ??? Anxiety ??? Depression ??? Hypertension ??? Neuropathy ??? Obesity ??? Sleep apnea ??? Urinary bladder incontinence Past Surgical History: Procedure Laterality Date ??? SECTION, CLASSIC ??? HYSTERECTOMY Social History Tobacco Use ??? Smoking status: Never Smoker ??? Smokeless tobacco: Never Used Substance Use Topics ??? Alcohol use: Never Frequency: Never Family History Problem Relation Name Age of Onset ??? Heart Disease Mother ??? Kidney Disease Mother ??? Heart Disease Father ??? Diabetes Brother Mother lived to be 78 and with dementia related complications. Her father at age 72 with strokes. Social. She is , lives with her , she has children, and grandchildren. She works as an education administrator for three facilities that care for people with developmental She does not and has never smoked. She does not use alcohol. She does not know what her cholesterol is. ROS: She has had no colon cancer screening and no prior colonoscopy. Ten point review of system is negative unless otherwise addressed in HPI or listed below. OBJECTIVE: Blood pressure 135/80, pulse 74, temperature 98.3 ??F (36.8 ??C), temperature source Tympanic, resp. rate 20, height 5' 4 (1.626 m), weight (!) 188.6 kg (415 lb 12.8 oz), SpO2 100 %. Physical Exam: ?? Constitutional: Well developed, well nourished, large woman. No acute distress, non-toxic appearance. ?? Eyes: PERRL, conjunctivae normal. ?? HEENT: Atraumatic. No obvious deformities. ?? Neck: Normal range of motion. No tenderness. Supple. No adenopathy. ?? Respiratory: No respiratory distress, normal breath sounds. No rales. No wheezing. No rhonchi. ?? Cardiovascular: Normal rate, normal rhythm. No murmurs, gallops, or rubs. No chest wall tenderness. Breast: No breast mass(es) identified on a limited exam. ?? Abdomen: Soft. Left upper quadrant tender. Bowel sounds present. No hepatomegaly, splenomegaly, mass, rebound or guarding. No suprapubic tenderness. ?? : Deferred. ?? Rectal: Deferred. ?? Back: No CVA tenderness. No back tenderness. ?? Musculoskeletal: Normal active range of motion. No edema, tenderness, or deformities. ?? Skin: Well hydrated, no rash. ?? Neurologic: Alert & oriented x3. Normal motor function. Normal sensory function. No focal deficits noted. ?? Psychiatric: Speech and behavior appropriate. Mood normal. Labs: Recent Results (from the past 24 hour(s)) CBC W/DIFF AUTOMATED Collection Time: 11/21/19 2:50 AM Result Value Ref Range WBC 8.4 4.5 - 10.8 x10'3/uL RBC 4.26 4.10 - 5.40 x10'6/uL HGB 13.0 12.0 - 16.0 G/DL HCT 39.0 36.0 - 47.0 % MCV 91.5 78.0 - 100.0 FL MCH 30.5 27.0 - 31.0 PG MCHC 33.3 33.0 - 36.0 G/DL RDW 12.9 11.5 - 14.5 % PLT 298 150 - 350 x10'3/uL MPV 11.0 (H) 7.4 - 10.4 FL Differential Comment NORMAL REFERENCE RANGE NOT ESTABLISHED FOR THE PROPORTIONAL LEUKOCYTE DIFFERENTIAL. SEG NEUTROPHILS 80.5 % LYMPHOCYTES 13.7 % MONOCYTES 4.9 % EOSINOPHILS 0.1 % BASOPHILS 0.6 % IMMATURE GRANS 0.2 % NRBC 0.0 % ABS. NEUTROPHILS 6.76 1.60 - 8.30 x10'3/uL ABS. LYMPHOCYTES 1.15 0.80 - 4.70 x10'3/uL ABS. MONOCYTES 0.41 0.00 - 1.50 x10'3/uL ABS. EOSINOPHILS 0.01 0.00 - 0.40 x10'3/uL ABS. BASOPHILS 0.05 0.00 - 0.20 x10'3/uL ABS. IMMATURE GRANULOCYTES 0.02 0.00 - 0.03 x10'3/uL ABS. NUCLEATED RBC'S 0.00 0.00 x10'3/uL LIPASE Collection Time: 11/21/19 2:50 AM Result Value Ref Range LIPASE 126 73 - 393 UNITS/L TROPONIN, QUANT Collection Time: 11/21/19 2:50 AM Result Value Ref Range TROPONIN I <0.017 0.000 - 0.056 ng/mL. D-DIMER, QUANTITATIVE Collection Time: 11/21/19 2:50 AM Result Value Ref Range D-DIMER 575 (H) <501 ng[FEU]/mL COMPREHENSIVE METABOLIC PANEL Collection Time: 11/21/19 2:50 AM Result Value Ref Range SODIUM 140 136 - 145 MMOL/L POTASSIUM 3.5 3.5 - 5.1 MMOL/L CHLORIDE S/P/B 103 98 - 107 MMOL/L CO2 23.1 21.0 - 32.0 MMOL/L GLUCOSE 132 (H) 70 - 99 MG/DL BUN 16 6 - 24 MG/DL CREATININE S/P/B 0.91 0.55 - 1.02 MG/DL CALCIUM 9.9 8.4 - 10.5 MG/DL BILIRUBIN TOTAL S/P/B 0.5 0.2 - 1.0 MG/DL ALK PHOS 55 41 - 108 U/L AST 14 (L) 15 - 37 U/L ALT 30 14 - 59 U/L TOTAL PROTEIN 8.4 (H) 6.4 - 8.2 G/DL ALBUMIN S/P/B 4.1 3.4 - 5.0 G/DL ANION GAP 13.9 5.0 - 15.0 MMOL/L OSMOLALITY (CALC) 293 MOSM/KG eGFR Non-Afr. Amer. 72 (L) >89 ML/MIN/1.73 M2 eGFR Afr. Amer. 83 (L) >89 ML/MIN/1.73 M2 GFR NOTES GFR REFERENCES: LACTIC ACID Collection Time: 11/21/19 2:50 AM Result Value Ref Range LACTIC ACID 4.6 (HH) 0.4 - 2.0 MMOL/L PROTIME/INR, VENOUS Collection Time: 11/21/19 2:50 AM Result Value Ref Range Protime 11.5 10.8 - 13.2 SEC INR 1.0 0.9 - 1.1 PARTIAL THROMBOPLASTIN TIME,PTT Collection Time: 11/21/19 2:50 AM Result Value Ref Range PTT 36.9 27.5 - 38.9 SEC URINALYSIS Collection Time: 11/21/19 7:27 AM Result Value Ref Range COLOR (U) YELLOW TRANSPARENCY CLEAR Specific [place] (U) 1.025 1.000 - 1.025 U PH 5.5 5.0 - 8.0 LEUKOCYTE ESTERASE NEGATIVE NEGATIVE NITRITES NEGATIVE NEGATIVE PROTEIN(U) NEGATIVE NEGATIVE URINE GLUCOSE NEGATIVE NEGATIVE U KETONES NEGATIVE NEGATIVE UROBILINOGEN 0.2 <1.0 EU/DL BILIRUBIN (U) NEGATIVE NEGATIVE BLOOD NEGATIVE NEGATIVE WBC/HPF RARE (A) 0 - 5 /HPF EPI/HPF OCCASIONAL /LPF BACTERIA (URINE) TRACE /HPF MUCOUS PRESENT TROPONIN, QUANT Collection Time: 11/21/19 7:37 AM Result Value Ref Range TROPONIN I <0.017 0.000 - 0.056 ng/mL. LACTIC ACID - SINGLE Collection Time: 11/21/19 7:37 AM Result Value Ref Range LACTIC ACID 2.6 (H) 0.4 - 2.0 MMOL/L Imaging: Results for orders placed or performed during the hospital encounter of 11/21/19 CT HEAD WO CON Narrative EXAMINATION: CT HEAD WITHOUT CONTRAST DATE: 11/21/2019 3:35 AM INDICATION: Dizziness. Nausea and vomiting. COMPARISON: None. TECHNIQUE: Noncontrast CT imaging through the brain was performed in the axial plane. CT dose lowering techniques were used, to include: automated exposure control, adjustment for patient size, and or use of iterative reconstruction. FINDINGS: Intracranial contents: The ventricles and sulci are normal in size and configuration. There is no midline shift or mass effect. There is no abnormal extra-axial fluid collection or acute intracranial hemorrhage. Grant-white interface appears distinct, with no evidence of large territory ischemic change. Bones and extracranial soft tissues: The calvarium is intact. The visualized paranasal sinuses and mastoid air cells are clear. Impression IMPRESSION: No acute intracranial abnormality is identified. Alfonso Tripathi M.D. Neuroradiologist Electronically signed by: Alfonso Tripathi M.D. 11/21/2019 6:22:00 AM CTA CHEST+CT ABD+PEL W CON Narrative EXAMINATION: CT SCAN OF THE CHEST, ABDOMEN AND PELVIS WITH INTRAVENOUS CONTRAST DATE OF EXAM: 11/21/2019 3:35 AM HISTORY: Pain COMPARISON: None. TECHNIQUE: CT examination of the chest, abdomen and pelvis was performed before and following the intravenous administration of [address] dose lowering techniques were used, to include: automated exposure control, adjustment for patient size, and/or use of iterative reconstruction. FINDINGS: CHEST: Lungs: Normal. Pleura: Normal. Mediastinum And More[place]: Normal. Cardiovascular: Normal. Chest Wall: Normal. ABDOMEN/PELVIS: Liver: Normal. Gallbladder/Billary: Normal. Pancreas: Normal. Spleen: Normal. Adrenal Glands: Normal. Kidneys: Normal. GI Tract: Normal. Mesentery/Peritoneum: Normal. Vasculature: Normal. Lymph Nodes: Normal. Abdominal Wall: Normal. Bladder: Normal. Reproductive: Normal. MUSCULOSKELETAL: Normal. Impression IMPRESSION: No acute abnormalities in the chest, abdomen or pelvis. Vascular structures are normal without aneurysm or dissection. Electronically signed by: Reza Avery M.D. 11/21/2019 6:33:00 AM EKG: Results for orders placed or performed during the hospital encounter of 11/21/19 ECG 12 lead Narrative [place] [id number] 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 Gastroenteritis ??? Lactic acid acidosis ??? Positive D dimer ??? Dizziness of unknown cause ??? Diarrhea ??? Vomiting ??? EKG, abnormal Etiology uncertain. I suspect a viral syndrome or gastroenteritis PLAN: IV fluids seem to be bringing her lactic acid down. Additional evaluation as ordered. Signed VAMSI DEGROOT MD 11/21/2019 documented in this encounter Consult Notes * Caroline Diaz MD - 11/23/2019 7:35 AM CDT Consults Attending Provider: Vamsi Degroot MD PCP: CRISTY GUAN MD Althea Kong is an 54-year-old female. Reason for Admission: Lactic acid acidosis Gastroenteritis Positive D dimer Dizziness of unknown cause Diarrhea Vomiting EKG, abnormal History of Present Illness: Vomiting This is a new problem. The current episode started in the past 7 days. The problem occurs 5 to 10 times per day. The problem has been gradually improving. There has been no fever. Associated symptomsinclude abdominal pain, diarrhea and headaches. Headache Associated symptoms include abdominal pain, nausea and vomiting. Past Medical History: Diagnosis Date ??? Allergies ??? Anxiety ??? Depression ??? Hypertension ??? Neuropathy ??? Obesity ??? Sleep apnea ??? Urinary bladder incontinence Allergies: No Known Allergies Social History Tobacco Use ??? Smoking status: Never Smoker ??? Smokeless tobacco: Never Used Substance Use Topics ??? Alcohol use: Never Frequency: Never Past Surgical History: Procedure Laterality Date ??? SECTION, CLASSIC ??? HYSTERECTOMY Family History Problem Relation Name Age of Onset ??? Heart Disease Mother ??? Kidney Disease Mother ??? Heart Disease Father ??? Diabetes Brother Travel Exposure: No current facility-administered medications on file prior to encounter. Current Outpatient Medications on File Prior to Encounter Medication Sig ??? aspirin 81 MG chewable tablet Chew 81 mg by mouth daily. ??? atenolol 100 MG tablet Take 100 mg by mouth nightly. ??? escitalopram 10 MG tablet Take 5 mg by mouth daily. ??? gabapentin 300 MG capsule Take 300 mg by mouth nightly. ??? hydroCHLOROthiazide 25 MG tablet Take 25 mg by mouth every morning. ??? LORazepam 0.5 MG tablet Take 0.5 mg by mouth every 6 (six) hours as needed for Anxiety. ??? losartan 100 MG tablet Take 100 mg by mouth daily. ??? oxybutynin XL 5 MG 24 hr tablet Take 10 mg by mouth 2 (two) times a day. Principal Problem: Lactic acid acidosis SNOMED CT(R): LACTIC ACIDOSIS Active Problems: Gastroenteritis SNOMED CT(R): GASTROENTERITIS Positive D dimer SNOMED CT(R): D-DIMER ABOVE REFERENCE RANGE Dizziness of unknown cause SNOMED CT(R): DIZZINESS OF UNKNOWN CAUSE Diarrhea SNOMED CT(R): DIARRHEA Vomiting SNOMED CT(R): VOMITING EKG, abnormal SNOMED CT(R): ELECTROCARDIOGRAM ABNORMAL Blood pressure 137/59, pulse 65, temperature 98.2 ??F (36.8 ??C), temperature source Tympanic, resp. rate 16, height 5' 4 (1.626 m), weight (!) 189.1 kg (417 lb), SpO2 98 %. Review of Systems Constitutional: Negative. Respiratory: Negative. Cardiovascular: Negative. Gastrointestinal: Positive for abdominal pain, constipation, diarrhea, nausea and vomiting. Neurological: Positive for headaches. Physical Exam Constitutional: She appears well-developed. Cardiovascular: Normal rate. Pulmonary/Chest: Effort normal. Abdominal: There is tenderness. Assessment: Discussed with patient and reviewed chart. Covid swab negative. Discussed risks and benefits of EGDand patient would like to proceed. Has not had lovenox shot this morning. Had a cracker 1 hour ago.Should be able to perform EGD at the end of morning cases this morning. Plan: Proceed with EGD as soon as possible. CAROLINE DIAZ MD 11/23/2019 documented in this encounter ED Notes * Russell Grimaldo MD - 11/21/2019 7:48 AM CDTAssociated Order(s): EKG Reading Chief Complaint No chief complaint on file. History of Present Illness 54-year-old female presents the ER with severe vomiting. Patient said her symptoms started 2PM yesterday with dizziness and headache. At 11:30 PM she started having vomiting. Patient vomited between 10-20 times. She also started developing upper abdominal pain which radiated to the back. Patient also complains of being anxious. Pain has been constant since 11:30 PM Medical History ALLERGIES: Not on File MEDICATIONS: Prior to Admission medications Not on File PAST MEDICAL HISTORY: Hypertension Asthma PAST SURGICAL HISTORY: No past surgical history on file. FAMILY HISTORY: No family history on file. SOCIAL HISTORY: Social History Tobacco Use ??? Smoking status: Not on file Substance Use Topics ??? Alcohol use: Not on file ??? Drug use: Not on file Denies alcohol Review of Systems Review of Systems Constitutional: Negative for chills and fever. HENT: Negative for voice change. Respiratory: Negative for cough and wheezing. Cardiovascular: Negative for chest pain. Gastrointestinal: Positive for abdominal pain and vomiting. Skin: Negative for color change. Neurological: Positive for dizziness. Negative for speech difficulty. Psychiatric/Behavioral: Negative for agitation. The patient is nervous/anxious. All other systems reviewed and are negative. Physical Exam Filed Vitals: 11/21/19 0645 11/21/19 0700 11/21/19 0715 05/17/20 0730 BP: 116/69 135/67 134/65 Pulse: 61 65 61 65 Resp: 16 21 12 18 SpO2: 99% 100% 96% 98% Physical Exam Constitutional: She is oriented to person, place, and time. She appears well- developed. She appearsdistressed. HENT: Head: Atraumatic. Eyes: Pupils are equal, round, and reactive to light. EOM are normal. Neck: Normal inspection Cardiovascular: Normal rate and regular rhythm. No murmur heard. Pulmonary/Chest: Breath sounds normal. No stridor. No respiratory distress. She has no wheezes. Abdominal: She exhibits no mass. There is tenderness. There is no rebound. Tender in left upper quadrant Musculoskeletal: She exhibits no edema. Left CVA tenderness Neurological: She is alert and oriented to person, place, and time. No cranial nerve deficit or sensory deficit. She exhibits normal muscle tone. Skin: Skin is dry. Psychiatric: anxious Diagnostic Studies / Procedures ELECTROCARDIOGRAMS: No results found for this visit on 11/21/19. LABORATORY STUDIES: Results for orders placed or performed during the hospital encounter of 11/21/19 CBC W/DIFF AUTOMATED Result Value Ref Range WBC 8.4 4.5 - 10.8 x10'3/uL RBC 4.26 4.10 - 5.40 x10'6/uL HGB 13.0 12.0 - 16.0 G/DL HCT 39.0 36.0 - 47.0 % MCV 91.5 78.0 - 100.0 FL MCH 30.5 27.0 - 31.0 PG MCHC 33.3 33.0 - 36.0 G/DL RDW 12.9 11.5 - 14.5 % PLT 298 150 - 350 x10'3/uL MPV 11.0 (H) 7.4 - 10.4 FL Differential Comment NORMAL REFERENCE RANGE NOT ESTABLISHED FOR THE PROPORTIONAL LEUKOCYTE DIFFERENTIAL. SEG NEUTROPHILS 80.5 % LYMPHOCYTES 13.7 % MONOCYTES 4.9 % EOSINOPHILS 0.1 % BASOPHILS 0.6 % IMMATURE GRANS 0.2 % NRBC 0.0 % ABS. NEUTROPHILS 6.76 1.60 - 8.30 x10'3/uL ABS. LYMPHOCYTES 1.15 0.80 - 4.70 x10'3/uL ABS. MONOCYTES 0.41 0.00 - 1.50 x10'3/uL ABS. EOSINOPHILS 0.01 0.00 - 0.40 x10'3/uL ABS. BASOPHILS 0.05 0.00 - 0.20 x10'3/uL ABS. IMMATURE GRANULOCYTES 0.02 0.00 - 0.03 x10'3/uL ABS. NUCLEATED RBC'S 0.00 0.00 x10'3/uL LIPASE Result Value Ref Range LIPASE 126 73 - 393 UNITS/L TROPONIN, QUANT Result Value Ref Range TROPONIN I <0.017 0.000 - 0.056 ng/mL. D-DIMER, QUANTITATIVE Result Value Ref Range D-DIMER 575 (H) <501 ng[FEU]/mL COMPREHENSIVE METABOLIC PANEL Result Value Ref Range SODIUM 140 136 - 145 MMOL/L POTASSIUM 3.5 3.5 - 5.1 MMOL/L CHLORIDE S/P/B 103 98 - 107 MMOL/L CO2 23.1 21.0 - 32.0 MMOL/L GLUCOSE 132 (H) 70 - 99 MG/DL BUN 16 6 - 24 MG/DL CREATININE S/P/B 0.91 0.55 - 1.02 MG/DL CALCIUM 9.9 8.4 - 10.5 MG/DL BILIRUBIN TOTAL S/P/B 0.5 0.2 - 1.0 MG/DL ALK PHOS 55 41 - 108 U/L AST 14 (L) 15 - 37 U/L ALT 30 14 - 59 U/L TOTAL PROTEIN 8.4 (H) 6.4 - 8.2 G/DL ALBUMIN S/P/B 4.1 3.4 - 5.0 G/DL ANION GAP 13.9 5.0 - 15.0 MMOL/L OSMOLALITY (CALC) 293 MOSM/KG eGFR Non-Afr. Amer. 72 (L) >89 ML/MIN/1.73 M2 eGFR Afr. Amer. 83 (L) >89 ML/MIN/1.73 M2 GFR NOTES GFR REFERENCES: IMAGING STUDIES CT HEAD WO CON Final Result by User, [email or web address] (11/20 622) EXAMINATION: CT HEAD WITHOUT CONTRAST DATE: 11/21/2019 3:35 AM INDICATION: Dizziness. Nausea and vomiting. COMPARISON: None. TECHNIQUE: Noncontrast CT imaging through the brain was performed in the axial plane. CT dose lowering techniques were used, to include: automated exposure control, adjustment for patient size, and or use of iterative reconstruction. FINDINGS: Intracranial contents: The ventricles and sulci are normal in size and configuration. There is no midline shift or mass effect. There is no abnormal extra-axial fluid collection or acute intracranial hemorrhage. Grant-white interface appears distinct, with no evidence of large territory ischemic change. Bones and extracranial soft tissues: The calvarium is intact. The visualized paranasal sinuses and mastoid air cells are clear. IMPRESSION: No acute intracranial abnormality is identified. Alfonso Tripathi M.D. Neuroradiologist Electronically signed by: Alfonso Tripathi M.D. 11/21/2019 6:22:00 AM CTA CHEST+CT ABD+PEL W CON Final Result by User, [email or web address] (11/20 633) EXAMINATION: CT SCAN OF THE CHEST, ABDOMEN AND PELVIS WITH INTRAVENOUS CONTRAST DATE OF EXAM: 11/21/2019 3:35 AM HISTORY: Pain COMPARISON: None. TECHNIQUE: CT examination of the chest, abdomen and pelvis was performed before and following the intravenous administration of [address] dose lowering techniques were used, to include: automated exposure control, adjustment for patient size, and/or use of iterative reconstruction. FINDINGS: CHEST: Lungs: Normal. Pleura: Normal. Mediastinum And More[place]: Normal. Cardiovascular: Normal. Chest Wall: Normal. ABDOMEN/PELVIS: Liver: Normal. Gallbladder/Billary: Normal. Pancreas: Normal. Spleen: Normal. Adrenal Glands: Normal. Kidneys: Normal. GI Tract: Normal. Mesentery/Peritoneum: Normal. Vasculature: Normal. Lymph Nodes: Normal. Abdominal Wall: Normal. Bladder: Normal. Reproductive: Normal. MUSCULOSKELETAL: Normal. IMPRESSION: No acute abnormalities in the chest, abdomen or pelvis. Vascular structures are normal without aneurysm or dissection. Electronically signed by: Reza Avery M.D. 11/21/2019 6:33:00 AM EKG Reading Date/Time: 11/21/2019 7:55 AM Performed by: Russell Grimaldo MD Authorized by: Russell Grimaldo MD Rhythm: sinus rhythm Rate: normal Clinical impression comment: No significant change from previous EKG ED Course / Medical Decision Making 7 AM patient improved, no vomiting, still with mild abdominal pain in the left upper quadrant, CT scan of the head chest and belly was unremarkable, CT of the head was done to rule out cerebellar infarct due to patient's dizziness, CTA chest and belly was done to rule out dissection due to elevatedd-dimer and patient's complaint of belly pain going to the back 7:[address] [facility] was contacted for possible transfer 7:[address] Degroot was called for possible admission, he wanted [facility] to be consulted in case the patient needs COVID-[address] Thompson taking over MDM Number of Diagnoses or Management Options Amount and/or Complexity of Data Reviewed Clinical lab tests: ordered and reviewed Tests in the radiology section of CPT??: ordered and reviewed Risk of Complications, Morbidity, and/or Mortality Presenting problems: high Diagnostic procedures: high Management options: high Patient Progress Patient progress: improved ED Course as of Nov 22 2218 Sun November 21, [address] Ta, hospitalist at [facility]. We discussed the patient's lab work and symptoms. She did not feel the patient required COVID testing nor transfer. Therefore the patient will be admitted to the hospital under the care of Dr. Degroot. She has continued stable condition under my care. [DL] ED Course User Index [DL] Delilah Thompson MD Clinical Impression Lactic acidosis (Primary) Dehydration Gastroenteritis Disposition: Transfer to Another Facility Russell Grimaldo MD 11/21/19 0803 Russell Grimaldo MD 11/23/192219 * Ella Salas RN - 11/21/2019 6:01 AM CDT See downtime forms. Charted on paper chart. documented in this encounter Plan of Treatment Not on file documented as of this encounter Procedures Procedure Name Priority Date/Time Associated Diagnosis Comments CARBON MONOXIDE, QNT Routine 11/23/2019 12:00 PM CDT ENDOSCOPY (SCAN ORDER) 0 10:52 AM CDT H PYLORI UREASE Routine 11/23/2019 10:49 AM CDT EGD 11/23/2019 10:34 AM CDT vomiting SED RATE, ERYTHROCYTE (ESR) Routine 11/23/2019 5:25 AM CDT COMPREHENSIVE METABOLIC PANEL Routine 11/23/2019 5:25 AM CDT C-REACTIVE PROTEIN Routine 11/23/2019 5: 25 AM CDT CBC W/DIFF AUTOMATED Routine 11/23/2019 5:25 AM CDT PATHOLOGY Routine 11/23/2019 12:00 AM CDT HC CLOSTRIDUM DIFFICILE Routine 11/22/19 20 9:30 AM CDT MISCELLANEOUS LAB TEST Routine 0 9:30 AM CDT MISCELLANEOUS LAB TEST Routine 0 9:30 AM CDT COMPREHENSIVE METABOLIC PANEL Routine 11/22/2019 6:05 AM CDT LIPID PANEL Routine 11/22/2019 6:05 AM CDT CBC W/DIFF AUTOMATED Routine 11/22/2019 6:05 AM CDT CORONAVIRUS (COVID 19) PCR Routine 11/21/2019 12:34 PM CDT LACTIC ACID Routine 11/21/2019 12:30 PM CDT ELECTROCARDIOGRAM REPORT Routine 020 7:48 AM CDT LACTIC ACID STAT 11/21/2019 7:37 AM CDT TROPONIN, QUANT STAT 11/21/2019 7:37 AM CDT HC URINALYSIS AUTO W/MICRO STAT 11/21/2019 7:[address] HEAD WO CON STAT 11/21/2019 6:10 AM CDT CTA CHEST+CT ABD+PEL W CON STAT 11/21/2019 6:10 AM CDT ECG 12-LEAD Routine 11/21/2019 3:08 AM CDT PARTIAL THROMBOPLASTIN TIME,PTT Routine 11/21/2019 2:50 AM CDT PROTHROMBIN TIME, VENOUS Routine 020 2:50 AM CDT COMPREHENSIVE METABOLIC PANEL STAT 11/21/2019 2:50 AM CDT LACTIC ACID Routine 11/21/2019 2:50 AM CDT D-DIMER, QUANTITATIVE STAT 11/21/2019 2:50 AM CDT CULTURE, BACTERIA, BLOOD STAT 020 2:50 AM CDT CBC W/DIFF AUTOMATED STAT 11/21/2019 2:50 AM CDT TROPONIN, QUANT STAT 11/21/2019 2:50 AM CDT LIPASE STAT 11/21/2019 2:50 AM CDT CULTURE, BACTERIA, BLOOD STAT 020 2:40 AM CDT documented in this encounter Results * (ABNORMAL) CARBON MONOXIDE, QNT (11/23/2019 12:00 PM CDT) CARBON MONOXIDE/COHB 2.2(H) 0.0 - 1.5 % 11/23/2019 12:07 PM CDT [facility] Comment:SMOKER: 0.0-10.0% 11/23/2019 12:0 0 PM CDT Rosy Malagon [facility] Final Res ult [facility] [address] [place] [address], * ENDOSCOPY (11/23/2019 10:52 AM CDT) us Caroline Diaz MD SCANNING Final Result * H PYLORI UREASE (11/23/2019 10:49 AM CDT) SPEC DESCRIPTION GASTRIC BIOPSY 11/23/2019 10:58 AM CDT [facility] SPECIAL REQUESTS NO SPECIAL REQUEST 11/23/2019 10:58 AM CDT [facility] DIRECT EXAM PRESUMPTIVE NEGATIVE FOR H. PYLORI 11/23/2019 3:20 PM CDT [facility] Tissue specimen (specimen) GASTRIC BIOPSY SPECIMEN / Unknown 11/23/2019 10:49 AM CDT us Caroline Diaz MD MICROBIOLOGY - GENERAL ORDERA BLES Final Result Performing Organization Address [facility]/ZIP Co de Phone Number [facility] [address] [place] [address], * (ABNORMAL) COMPREHENSIVE METABOLIC PANEL (11/23/2019 5:25 AM CDT) SODIUM S/P/B 143 136 - 145 MMOL/L 11/23/2019 6:22 AM CDT [facility] POTASSIUM S/P/B 3.6 3.5 - 5.1 MMOL/L 11/23/2019 6:22 AM CDT [facility] CHLORIDE S/P/B 106 98 - 107 MMOL/L 11/23/2019 6:22 AM CDT [facility] CO2 31.1 21.0 - 32.0 MMOL/L 11/23/2019 6:22 AM CDT [facility] GLUCOSE 100(H) 70 - 99 MG/DL 11/23/2019 6:22 AM CDT [facility] Comment: FASTING GLUCOSE 100 TO 125 MG/DL IS CONSISTENT WITH IMPAIRED FASTING GLUCOSE. FASTING GLUCOSE >125 MG/DL IS CONSISTENT WITH DIABETES. RANDOM GLUCOSE >200 MG/DL WITH HYPERGLYCEMIC SYMPTOMS IS CONSISTENT WITH DIABETES. PER ADA GUIDELINES BUN 6 6 - 24 MG/DL 11/23/2019 6:22 AM [facility] CREATININE S/P/B 0.65 0.55 - 1.02 MG/DL 11/23/2019 6:22 AM [facility] CALCIUM S/P/B 8.6 8.4 - 10.5 MG/DL 11/23/2019 6:22 AM [facility] BILIRUBIN TOTAL S/P/B 0.6 0.2 - 1.0 MG/DL 11/23/2019 6:22 AM [facility] Comment: THIS ASSAY IS NOT RECOMMENDED FOR PATIENTS UNDERGOING TREATMENT WITH ELTROMBOPAG DUE TO THE POTENTIAL FOR FALSELY ELEVATED RESULTS. ALKALINE PHOSPHATASE S/P/B 43 41 - 108 U/L 11/23/2019 6:22 AM [facility] AST 20 15 - 37 U/L 11/23/2019 6:22 AM [facility] ALT 33 14 - 59 U/L 11/23/2019 6:22 AM [facility] TOTAL PROTEIN S/P/B 6.6 6.4 - 8.2 G/DL 11/23/2019 6:22 AM [facility] ALBUMIN S/P/B 3.3(L) 3.4 - 5.0 G/DL 11/23/2019 6:22 AM [facility] ANION GAP 5.9 5.0 - 15.0 MMOL/L 11/23/2019 6:22 AM [facility] OSMOLALITY (CALC) 294 MOSM/KG 020 6:22 AM [facility] Comment:REFERENCE RANGE NOT ESTABLISHED EGFR NON-AFR. AMER. >90 >89 ML/MIN/1. 73 M2 11/23/2019 6:22 AM [facility] EGFR AFR. AMER. >90 >89 ML/MIN/1. 73 M2 11/23/2019 6:22 AM CDT [facility] GFR NOTES GFR REFERENCE S: 11/23/2019 6:22 AM CDT [facility] Comment: THE ESTIMATED GFR IS CALCULATED USING THE 2009 CKD-EPI EQUATION. THE FOLLOWING CATEGORIES FOR GRADING RENAL FUNCTION ARE RECOMMENDED BY THE INTERNATIONAL SOCIETY OF NEPHROLOGY (KDIGO 2012 CLINICAL PRACTICE GUIDELINE). G1,NORMAL OR HIGH: >89 ml/min/1.73 m2 G2,MILDLY DECREASED: 60-89 ml/min/1.73 m2 G3A,MILDLY TO MODERATELY DECREASED: 45-59 ml/min/1.73 m2 G3B,MODERATELY TO SEVERELY DECREASED: 30-44 ml/min/1.73 m2 G4,SEVERELY DECREASED: 15-29 ml/min/1.73 m2 G5,KIDNEY FAILURE: <15 ml/min/1.73 m2 11/23/2019 5:25 AM CDT Rosy Malagon [facility] Final Res ult [facility] [address] [place] [address], * (ABNORMAL) CBC W/DIFF AUTOMATED (11/23/2019 5:25 AM CDT) WBC 4.4(L) 4.5 - 10.8 x10'3/uL 11/23/2019 5:59 AM CDT [facility] RBC 3.52(L) 4.10 - 5.40 x10'6/uL 11/23/2019 5:59 AM CDT [facility] HGB 10.7(L) 12.0 - 16.0 G/DL 11/23/2019 5:59 AM CDT [facility] HCT 32.9(L) 36.0 - 47.0 % 11/23/2019 5:59 AM CDT [facility] MCV 93.5 78.0 - 100.0 FL 11/23/2019 5:59 AM CDT [facility] MCH 30.4 27.0 - 31.0 PG 11/23/2019 5:59 AM CDT [facility] MCHC 32.5(L) 33.0 - 36.0 G/DL 11/23/2019 5:59 AM CDT [facility] RDW 12.8 11.5 - 14.5 % 11/23/2019 5:59 AM CDT [facility] PLT 219 150 - 350 x10'3/uL 11/23/2019 5:59 AM CDT [facility] MPV 10.9(H) 7.4 - 10.4 FL 11/23/2019 5:59 AM CDT [facility] DIFFERENTIAL COMMENT NORMAL REFERENCE RANGE NOT ESTABLISHED FOR THE PROPORTIONAL LEUKOCYTE DIFFERENTIAL. 11/23/2019 5:59 AM CDT [facility] SEG NEUTROPHILS 59.0 % 0 5:59 AM CDT [facility] LYMPHOCYTES 29.1 % 11/23/2019 5:59 AM CDT [facility] MONOCYTES 9.6 % 11/23/2019 5:59 AM CDT [facility] EOSINOPHILS 1.4 % 11/23/2019 5:59 AM CDT [facility] BASOPHILS 0.7 % 11/23/2019 5:59 AM CDT [facility] IMMATURE GRANS % 0.2 % 11/23/19 20 5:59 AM CDT [facility] NRBC 0.0 % 11/23/2019 5:59 AM CDT [facility] ABS. NEUTROPHILS 2.57 1.60 - 8.30 x10'3/uL 11/23/2019 5:59 AM CDT [facility] ABS. LYMPHOCYTES 1.27 0.80 - 4.70 x10'3/uL 11/23/2019 5:59 AM CDT [facility] ABS. MONOCYTES 0.42 0.00 - 1.50 x10'3/uL 11/23/2019 5:59 AM CDT [facility] ABS. EOSINOPHILS 0.06 0.00 - 0.40 x10'3/uL 11/23/2019 5:59 AM CDT [facility] ABS. BASOPHILS 0.03 0.00 - 0.20 x10'3/uL 11/23/2019 5:59 AM CDT [facility] ABS. IMMATURE GRANULOCYTES 0.01 0.00 - 0.03 x10'3/uL 11/23/2019 5:59 AM CDT [facility] ABS. NUCLEATED RBC'S 0.00 0.00 x10'3/uL 11/23/2019 5:59 AM CDT [facility] 11/23/2019 5:25 AM CDT us [facility] [place] [place] [address], * SED RATE, ERYTHROCYTE (ESR) (11/23/2019 5:25 AM CDT) ESR 15 0 - 30 MM/HR 11/23/2019 6:26 AM CDT [facility] 11/23/2019 5:25 AM CDT us Rosy [facility] Final Res ult Performing Organization Address [facility] Co de Phone Number [facility] [address] [place] [address], [place] [phone] * C-REACTIVE PROTEIN (11/23/2019 5:25 AM CDT) C-REACTIVE PROTEIN <0.05 <0.30 mg/dL 11/23/2019 6:22 AM CDT [facility] 11/23/2019 5:25 AM CDT us Rosy [facility] Final Res ult [facility] [address] [place] [address], [place] [phone] * Pathology (11/23/2019 12:00 AM CDT) PATHOLOGY [facility] ? Department of Laboratory Medicine ?[address] ?[place] [address] ? , extension [phone] ? Pathology Report ? Surgical Pathology Report Name: ALTHEA KONG ?Specimen #: [id number] Age: 9 1965 (Age: 54) ?Location: [id number] Sex: F ?Procedure Date: 11/23/2019 Hospital #: [id number] ?Date Received: 11/24/2019 Date Reported: 11/25/2019 Provider: CAROLINE DIAZ MD ?DELILAH THOMPSON MD ?VAMSI DEGROOT MD Source: A: Duodenum, biopsy B: Antrum, biopsy Clinical History: Vomiting. Gross Description: Received in two parts: A) Received in formalin, labeled with a patient label and as duodenum biopsy are two pieces of yanez tissue, each 0.3 cm. ??The specimen is entirely submitted in cassette A1. B) Received in formalin, labeled with a patient label and as antrum biopsy is a 0.3 cm piece of white-yanez tissue which is entirely submitted in cassette B1. FINAL DIAGNOSIS: A) DUODENUM, ENDOSCOPIC BIOPSY: ? - SMALL BOWEL MUCOSA WITHOUT DIAGNOSTIC ABNORMALITY. B) STOMACH, ANTRUM, ENDOSCOPIC BIOPSY: ? - ANTRAL MUCOSA WITHOUT DIAGNOSTIC ABNORMALITY. ? - NO HELICOBACTER PYLORI ORGANISMS IDENTIFIED. Electronically Signed Out ? Mateo Hogan M.D. [facility] Tissue specimen (specimen) DUODENAL STRUCTURE / Unknown 11/23/2019 10:51 AM CDT Tissue specimen (specimen) STOMACH STRUCTURE / Unknown 11/23/2019 10:52 AM CDT Caroline Diaz MD PATHOLOGY/CYTOLOGY ORDERABLES Final Result [facility] [address] [place] [address], [id number] * MISCELLANEOUS LAB TEST (11/22/2019 9:30 AM CDT) TEST NAME: [id number] OVA AND PARASITE 11/22/2019 10:00 AM CDT [facility] SPECIMEN TYPE STOOL 11/22/2019 10:00 AM CDT [facility] TEST RESULT: Flexitest 1 11/27/2019 5:10 PM CDT [facility]Visit MILTON JIMENEZ Comment: Flexitest 1 Cryptosporidium Antigen, DFA SOURCE : Result/Comment: ? Not Detected Reference range: Not Detected NOTE: Due to intermittent shedding, one negative sample does not necessarily rule out the presence of a parasitic infection. Giardia Ag, EIA, Stool ? Not Detected Reference range: ??Not Detected NOTE: Due to intermittent shedding, one negative sample does not necessarily rule out the presence of a parasitic infection. Test Performed by Shauna Joyce, [facility], [address] [place] [address] Mateo London M.D., Ph.D., Director of Laboratories , [facility] [id number] OTHER (type in comments) 11/22/2019 9:30 AM CDT Vamsi Degroot MD LABORATORY Final Resul t Performing Organization Address [facility]/ZIP Co de Phone Number dVisit [address] , [place] [phone] [facility] [address] [place] [address], * CLOSTRIDIUM DIFFICILE (11/22/2019 9:30 AM CDT) SPEC DESCRIPTION STOOL 11/22/2019 9:40 AM CDT [facility] SPECIAL REQUESTS NO SPECIAL REQUEST 11/22/2019 9:40 AM CDT [facility] RESULT NEGATIVE 11/22/2019 11:01 AM CDT [facility] STOOL SPECIMEN / Unknown 11/22/2019 9:30 AM CDT 11/22/2019 9:51 AM CDT Vamsi Degroot MD BODY FLUIDS AND STOOLS ORDE BHARAT Final Result Performing Organization Address City/[facility]/ZIP Co de Phone Number [facility] [address] [place] [address], [place] [phone] * MISCELLANEOUS LAB TEST (11/22/2019 9:30 AM CDT) TEST NAME: [id number] SALMONELLA/SH IGELLA/CAMPY 11/22/2019 9:59 AM CDT [facility] SPECIMEN TYPE STOOL 11/22/2019 9:59 AM CDT [facility] TEST RESULT: Flexitest 1 11/27/2019 6:58 PM CDT dVisit MILTON JIMENEZ Comment: Flexitest 1 Salmonella and Shigella, Culture SOURCE : Result/Comment: Salmonella or Shigella not isolated. Campylobacter, Culture SOURCE : Result/Comment: Campylobacter not isolated. Shiga Toxins, EIA ?Not Detected Reference range: ??Not Detected Additional Testing ?Not indicated Test Performed by ArkadinShauna Arkadin [facility], [id number] [place] [address] Mateo London M.D., Ph.D., Director of Laboratories , [facility] [id number] 11/22/2019 9:30 AM CDT Rosy Malagon [facility] Final Res ult [address] [address], [place] [phone] [facility] [place] [address], * (ABNORMAL) LIPID PANEL (11/22/2019 6:05 AM CDT) CHOLESTEROL 192 <200 MG/DL 11/22/2019 6:39 AM CDT [facility] Comment: THE NATIONAL LIPID ASSOCIATION AND THE NATIONAL CHOLESTEROL EDUCATION PROGRAM (NCEP) HAVE SET THE FOLLOWING GUIDELINES FOR TOTAL CHOLESTEROL IN ADULTS AGES 18 AND UP. DESIRABLE: <200 BORDERLINE HIGH: 200-239 HIGH: > OR = 240 TRIGLYCERIDES 192(H) <150 MG/DL 11/22/2019 6:39 AM CDT [facility] Comment: THE NATIONAL LIPID ASSOCIATION AND THE NATIONAL CHOLESTEROL EDUCATION PROGAM (NCEP) HAVE SET THE FOLLOWING GUIDELINES FOR TRIGLYCERIDES IN ADULTS AGES 18 AND UP. NORMAL: <150 BORDERLINE HIGH: 150 TO 199 HIGH: 200 TO 499 VERY HIGH: >499 HDL 35(L) >49 MG/DL 11/22/2019 6:39 AM CDT [facility] Comment: THE NATIONAL LIPID ASSOCIATION AND THE NATIONAL CHOLESTEROL EDUCATION PROGAM (NCEP) HAVE SET THE FOLLOWING GUIDELINES FOR HDL CHOLESTEROL IN ADULTS AGES 18 AND UP. MALES: >39 FEMALES: >49 LDL (CALCULATED) 119(H) <100 MG/DL 11/22/19 6:39 AM CDT [facility] Comment: THE NATIONAL LIPID ASSOCIATION AND THE NATIONAL CHOLESTEROL EDUCATION PROGAM (NCEP) HAVE SET THE FOLLOWING GUIDELINES FOR LDL CHOLESTEROL IN ADULTS AGES 18 AND UP. DESIRABLE: <100 ABOVE DESIRABLE: 100 TO 129 BORDERLINE HIGH: 130 TO 159 HIGH: 160 TO 189 VERY HIGH: >189 VLDL CALCULATION 38 MG/DL 11/22/19 6:39 AM CDT [facility] Comment:REFERENCE RANGE NOT ESTABLISHED CHOL/HDL RATIO 5.5 11/22/2019 6:39 AM CDT [facility] Comment:REFERENCE RANGE NOT ESTABLISHED LDL/HDL 3.4 11/22/2019 6:39 AM CDT [facility] Comment:REFERENCE RANGE NOT ESTABLISHED NON HDL CHOLESTEROL 157 MG/DL 11/22/2019 6:39 AM CDT [facility] Comment:REFERENCE RANGE NOT ESTABLISHED 11/22/2019 6:05 AM CDT Rosy Malagon [facility] Final Res ult [facility] [address] [place] [address], * (ABNORMAL) COMPREHENSIVE METABOLIC PANEL (11/22/2019 6:05 AM CDT) SODIUM S/P/B 142 136 - 145 MMOL/L 11/22/2019 6:40 AM CDT [facility] POTASSIUM S/P/B 3.8 3.5 - 5.1 MMOL/L 11/22/2019 6:40 AM CDT [facility] CHLORIDE S/P/B 107 98 - 107 MMOL/L 11/22/2019 6:40 AM CDT [facility] CO2 27.6 21.0 - 32.0 MMOL/L 11/22/2019 6:40 AM T [facility] GLUCOSE 101(H) 70 - 99 MG/DL 11/22/2019 6:40 AM [facility] Comment: FASTING GLUCOSE 100 TO 125 MG/DL IS CONSISTENT WITH IMPAIRED FASTING GLUCOSE. FASTING GLUCOSE >125 MG/DL IS CONSISTENT WITH DIABETES. RANDOM GLUCOSE >200 MG/DL WITH HYPERGLYCEMIC SYMPTOMS IS CONSISTENT WITH DIABETES. PER ADA GUIDELINES BUN 9 6 - 24 MG/DL 11/22/2019 6:40 AM T [facility] CREATININE S/P/B 0.63 0.55 - 1.02 MG/DL 11/22/2019 6:40 AM T [facility] CALCIUM S/P/B 8.5 8.4 - 10.5 MG/DL 11/22/2019 6:40 AM [facility] BILIRUBIN TOTAL S/P/B 0.6 0.2 - 1.0 MG/DL 11/22/2019 6:40 AM [facility] Comment: THIS ASSAY IS NOT RECOMMENDED FOR PATIENTS UNDERGOING TREATMENT WITH ELTROMBOPAG DUE TO THE POTENTIAL FOR FALSELY ELEVATED RESULTS. ALKALINE PHOSPHATASE S/P/B 41 41 - 108 U/L 11/22/2019 6:40 AM [facility] AST 19 15 - 37 U/L 11/22/2019 6:40 AM [facility] ALT 28 14 - 59 U/L 11/22/2019 6:40 AM [facility] TOTAL PROTEIN S/P/B 6.2(L) 6.4 - 8.2 G/DL 11/22/2019 6:40 AM [facility] ALBUMIN S/P/B 3.1(L) 3.4 - 5.0 G/DL 11/22/2019 6:40 AM [facility] ANION GAP 7.4 5.0 - 15.0 MMOL/L 11/22/2019 6:40 AM [facility] OSMOLALITY (CALC) 293 MOSM/KG 020 6:40 AM [facility] Comment:REFERENCE RANGE NOT ESTABLISHED EGFR NON-AFR. AMER. >90 >89 ML/MIN/1. 73 M2 11/22/2019 6:40 AM CDT [facility] EGFR AFR. AMER. >90 >89 ML/MIN/1. 73 M2 11/22/2019 6:40 AM CDT [facility] GFR NOTES GFR REFERENCE S: 11/22/2019 6:40 AM CDT [facility] Comment: THE ESTIMATED GFR IS CALCULATED USING THE 2009 CKD-EPI EQUATION. THE FOLLOWING CATEGORIES FOR GRADING RENAL FUNCTION ARE RECOMMENDED BY THE INTERNATIONAL SOCIETY OF NEPHROLOGY (KDIGO 2012 CLINICAL PRACTICE GUIDELINE). G1,NORMAL OR HIGH: >89 ml/min/1.73 m2 G2,MILDLY DECREASED: 60-89 ml/min/1.73 m2 G3A,MILDLY TO MODERATELY DECREASED: 45-59 ml/min/1.73 m2 G3B,MODERATELY TO SEVERELY DECREASED: 30-44 ml/min/1.73 m2 G4,SEVERELY DECREASED: 15-29 ml/min/1.73 m2 G5,KIDNEY FAILURE: <15 ml/min/1.73 m2 11/22/2019 6:05 AM CDT Rosy Malagon [facility] Final Res ult [facility] [address] [place] [address], * (ABNORMAL) CBC W/DIFF AUTOMATED (11/22/2019 6:05 AM CDT) WBC 4.2(L) 4.5 - 10.8 x10'3/uL 11/22/2019 6:29 AM CDT [facility] RBC 3.46(L) 4.10 - 5.40 x10'6/uL 11/22/2019 6:29 AM CDT [facility] HGB 10.4(L) 12.0 - 16.0 G/DL 11/22/2019 6:29 AM CDT [facility] HCT 32.4(L) 36.0 - 47.0 % 11/22/2019 6:29 AM CDT [facility] MCV 93.6 78.0 - 100.0 FL 11/22/2019 6:29 AM CDT [facility] MCH 30.1 27.0 - 31.0 PG 11/22/2019 6:29 AM CDT [facility] MCHC 32.1(L) 33.0 - 36.0 G/DL 11/22/2019 6:29 AM CDT [facility] RDW 13.2 11.5 - 14.5 % 11/22/2019 6:29 AM CDT [facility] PLT 204 150 - 350 x10'3/uL 11/22/2019 6:29 AM CDT [facility] MPV 11.0(H) 7.4 - 10.4 FL 11/22/2019 6:29 AM CDT [facility] DIFFERENTIAL COMMENT NORMAL REFERENCE RANGE NOT ESTABLISHED FOR THE PROPORTIONAL LEUKOCYTE DIFFERENTIAL. 11/22/2019 6:29 AM CDT [facility] SEG NEUTROPHILS 53.8 % 0 6:29 AM CDT [facility] LYMPHOCYTES 36.0 % 11/22/2019 6:29 AM CDT [facility] MONOCYTES 7.6 % 11/22/2019 6:29 AM CDT [facility] EOSINOPHILS 1.4 % 11/22/2019 6:29 AM CDT [facility] BASOPHILS 1.0 % 11/22/2019 6:29 AM CDT [facility] IMMATURE GRANS % 0.2 % 11/22/19 20 6:29 AM CDT [facility] NRBC 0.0 % 11/22/2019 6:29 AM CDT [facility] ABS. NEUTROPHILS 2.25 1.60 - 8.30 x10'3/uL 11/22/2019 6:29 AM CDT [facility] ABS. LYMPHOCYTES 1.51 0.80 - 4.70 x10'3/uL 11/22/2019 6:29 AM CDT [facility] ABS. MONOCYTES 0.32 0.00 - 1.50 x10'3/uL 11/22/2019 6:29 AM CDT [facility] ABS. EOSINOPHILS 0.06 0.00 - 0.40 x10'3/uL 11/22/2019 6:29 AM CDT [facility] ABS. BASOPHILS 0.04 0.00 - 0.20 x10'3/uL 11/22/2019 6:29 AM CDT [facility] ABS. IMMATURE GRANULOCYTES 0.01 0.00 - 0.03 x10'3/uL 11/22/2019 6:29 AM CDT [facility] ABS. NUCLEATED RBC'S 0.00 0.00 x10'3/uL 11/22/2019 6:29 AM CDT [facility] 11/22/2019 6:05 AM CDT Rosy Malagon [facility] Final Res ult Performing Organization Address City/[facility]/[place] [address], * CORONAVIRUS (COVID 19) PCR (11/21/2019 12:34 PM CDT) SPEC DESCRIPTION NASOPHARYNGEAL SWAB 11/21/2019 12:43 PM CDT [facility] CORONAVIRUS SARS COV 2 PCR (RESP) NEGATIVE NEGATIVE 11/22/2019 4:[address] [facility] Comment: NEGATIVE RESULTS DO NOT PRECLUDE SARS-CoV-2 INFECTION AND SHOULD NOT BE USED THE SOLE BASIS FOR PATIENT MANAGEMENT DECISIONS. NEGATIVE RESULTS MUST BE COMBINED WITH CLINICAL OBSERVATIONS, PATIENT HISTORY, AND EPIDEMIOLOGICAL INFORMATION. 11/21/2019 12:3 4 PM CDT Vamsi Degroot MD MICROBIOLOGY - [facility] Final Result [facility] [address] [place] [address], [place] [phone] [id number] [facility] [address] [place] [id number], * LACTIC ACID (11/21/2019 12:30 PM CDT) LACTIC ACID VENOUS 2.0 0.4 - 2.0 MMOL/L 11/21/2019 1:01 PM CDT [facility] 11/21/2019 12:3 0 PM CDT Rosy Malagon [facility] Final Res ult Performing Organization Address City/[facility]/ZIP Co de Phone Number [facility] [address] [place] [address], [place] [phone] * EKG Reading (11/21/2019 7:48 AM CDT) Narrative Russell Grimaldo MD - 11/21/2019 7:48 AM CDT Russell Grimaldo MD ? 11/21/2019 ??8:03 AM EKG Reading Date/Time: 11/21/2019 7:55 AM Performed by: Russell Grimaldo MD Authorized by: Russell Grimaldo MD Rhythm: sinus rhythm Rate: normal Clinical impression comment: No significant change from previous EKG Russell Grimaldo MD [facility] Final Result * (ABNORMAL) LACTIC ACID - SINGLE (11/21/2019 7:37 AM CDT) LACTIC ACID VENOUS 2.6(H) 0.4 - 2.0 MMOL/L 11/21/2019 8:07 AM CDT [facility] Comment: AN ORDER FOR A REPEAT LACTIC ACID TEST IS REQUIRED WITHIN 6 HOURS OF DIAGNOSIS ON A PATIENT WITH SEVERE SEPSIS. 11/21/2019 7:37 AM CDT Russell Grimaldo MD LABORATORY Final Result Performing Organization Address [facility]/ZIP Co de Phone Number [facility] [address] [place] [id number], [place] [phone] * TROPONIN, QUANT (11/21/2019 7:37 AM CDT) TROPONIN I <0.017 0.000 - 0.056 ng/mL. 11/21/2019 8:07 AM CDT [facility] Comment: ALTHOUGH VALUES OVER 0.056 ARE CONSIDERED ABNORMAL AND REPRESENT MYOCARDIAL DAMAGE,A CUTOFF OF 0.600 HAS BEEN RECOMMENDED REPRESENTING ACUTE MYOCARDIAL INFARCTION. 11/21/2019 7:37 AM CDT us Russell Grimaldo MD LABORATORY Final Result [facility] [address] [place] [address], * (ABNORMAL) URINALYSIS (11/21/2019 7:27 AM CDT) COLOR (U) YELLOW 11/21/2019 8:03 AM CDT [facility] TRANSPARENCY CLEAR 11/21/2019 8:03 AM CDT [facility] SPECIFIC GRAVITY (U) 1.025 1.000 - 1.025 11/21/2019 8:03 AM CDT [facility] U PH 5.5 5.0 - 8.0 11/21/2019 8:03 AM CDT [facility] LEUKOCYTES (U) NEGATIVE NEGATIVE 11/21/2019 8:03 AM CDT [facility] NITRITES NEGATIVE NEGATIVE 11/21/2019 8:03 AM CDT [facility] PROTEIN (U) NEGATIVE NEGATIVE 11/21/2019 8:03 AM CDT [facility] URINE GLUCOSE NEGATIVE NEGATIVE 11/21/2019 8:03 AM CDT [facility] KETONES MG/DL (U) NEGATIVE NEGATIVE 11/21/2019 8:03 AM CDT [facility] UROBILINOGEN 0.2 <1.0 EU/DL 11/21/2019 8:03 AM CDT [facility] BILIRUBIN (U) NEGATIVE NEGATIVE 11/21/2019 8:03 AM CDT [facility] BLOOD (U) NEGATIVE NEGATIVE 11/21/2019 8:03 AM CDT [facility] WBC/HPF RARE(A) 0 - 5 /HPF 11/21/2019 8:03 AM CDT [facility] EPI/HPF OCCASIONAL /LPF 11/21/2019 8:03 AM CDT [facility] BACTERIA (U) TRACE /HPF 11/21/2019 8:03 AM CDT [facility] MUCUS PRESENT 11/21/2019 8:03 AM CDT [facility] URINE SPECIMEN OBTAINED BY CLEAN CATCH PROCEDURE / Unknown 11/21/2019 7:27 AM CDT Russell Grimaldo MD URINE ORDERABLES Final Result [facility] [address] [place] [address], * CTA CHEST+CT ABD+PEL W CON (11/21/2019 6:10 AM CDT) Anatomical Region Laterality Modality Abdomen, Chest Computed Tomogra phy 11/21/2019 6:27 AM CDT Impressions 11/21/2019 6:33 AM CDT IMPRESSION: No acute abnormalities in the chest, abdomen or pelvis. Vascular structures are normal without aneurysm or dissection. Electronically signed by: ??Reza Avery M.D. 11/21/2019 6:33:00 AM Narrative 11/21/2019 6:33 AM CDT EXAMINATION: CT SCAN OF THE CHEST, ABDOMEN AND PELVIS WITH INTRAVENOUS CONTRAST DATE OF EXAM: 11/21/2019 3:35 AM HISTORY: Pain COMPARISON: None. TECHNIQUE: CT examination of the chest, abdomen and pelvis was performed before and following the intravenous administration of [address] dose lowering techniques were used, to include: automated exposure control, adjustment for patient size, and/or use of iterative reconstruction. FINDINGS: CHEST: Lungs: ??Normal. Pleura: Normal. Mediastinum And Morenita: Normal. Cardiovascular: Normal. Chest Wall: ??Normal. ABDOMEN/PELVIS: Liver: Normal. Gallbladder/Billary: Normal. Pancreas: Normal. Spleen: Normal. Adrenal Glands: Normal. Kidneys: Normal. GI Tract: Normal. Mesentery/Peritoneum: Normal. Vasculature: Normal. Lymph Nodes: Normal. Abdominal Wall: Normal. Bladder: Normal. Reproductive: Normal. MUSCULOSKELETAL: Normal. Procedure Note Gena, Christopher R, MD - 11/21/2019 EXAMINATION: CT SCAN OF THE CHEST, ABDOMEN AND PELVIS WITH INTRAVENOUSCONTRAST DATE OF EXAM: 11/21/2019 3:35 AM HISTORY: Pain COMPARISON: None. TECHNIQUE: CT examination of the chest, abdomen and pelvis was performedbefore and following the intravenous administration of 95 mL Isovue 300.CT dose lowering techniques were used, to include: automated exposurecontrol, adjustment for patient size, and/or use of iterativereconstruction. FINDINGS: CHEST: Lungs: Normal. Pleura: Normal. Mediastinum And Morenita: Normal. Cardiovascular: Normal. Chest Wall: Normal. ABDOMEN/PELVIS: Liver: Normal. Gallbladder/Billary: Normal. Pancreas: Normal. Spleen: Normal. Adrenal Glands: Normal. Kidneys: Normal. GI Tract: Normal. Mesentery/Peritoneum: Normal. Vasculature: Normal. Lymph Nodes: Normal. Abdominal Wall: Normal. Bladder: Normal. Reproductive: Normal. MUSCULOSKELETAL: Normal. IMPRESSION: No acute abnormalities in the chest, abdomen or pelvis. Vascularstructures are normal without aneurysm or dissection. Electronically signed by: Reza Avery M.D. 11/21/2019 6:33:00 AM Russell Grimaldo MD CT Final Result * CT HEAD WO CON (11/21/2019 6:10 AM CDT) Anatomical Region Laterality Modality Head Computed Tomogra phy 11/21/2019 6:17 AM CDT Impressions 11/21/2019 6:22 AM CDT IMPRESSION: No acute intracranial abnormality is identified. Alfonso Tripathi M.D. Neuroradiologist Electronically signed by: ??Alfonso Tripathi M.D. 11/21/2019 6:22:00 AM Narrative 11/21/2019 6:22 AM CDT EXAMINATION: CT HEAD WITHOUT CONTRAST DATE: 11/21/2019 3:35 AM INDICATION: Dizziness. Nausea and vomiting. COMPARISON: None. TECHNIQUE: Noncontrast CT imaging through the brain was performed in the axial plane. CT dose lowering techniques were used, to include: automated exposure control, adjustment for patient size, and or use of iterative reconstruction. FINDINGS: Intracranial contents: The ventricles and sulci are normal in size and configuration. ??There is no midline shift or mass effect. ??There is no abnormal extra-axial fluid collection or acute intracranial hemorrhage. Grant-white interface appears distinct, with no evidence of large territory ischemic change. Bones and extracranial soft tissues: The calvarium is intact. The visualized paranasal sinuses and mastoid air cells are clear. Procedure Note Alfonso Tripathi MD - 11/21/2019 EXAMINATION: CT HEAD WITHOUT CONTRAST DATE: 11/21/2019 3:35 AM INDICATION: Dizziness. Nausea and vomiting. COMPARISON: None. TECHNIQUE: Noncontrast CT imaging through the brain was performed in theaxial plane. CT dose lowering techniques were used, to include: automatedexposure control, adjustment for patient size, and or use of iterativereconstruction. FINDINGS: Intracranial contents: The ventricles and sulci are normal in size and configuration. There isno midline shift or mass effect. There is no abnormal extra-axial fluidcollection or acute intracranial hemorrhage. Grant-white interface appears distinct, with no evidence of large territoryischemic change. Bones and extracranial soft tissues: The calvarium is intact. The visualized paranasal sinuses and mastoid aircells are clear. IMPRESSION: No acute intracranial abnormality is identified. Alfonso Tripathi M.D. Neuroradiologist Electronically signed by: Alfonso Tripathi M.D. 11/21/2019 6:22:00 AM Russell Grimaldo MD CT Final Result * ECG 12 lead (11/21/2019 3:08 AM CDT) 11/21/2019 3:08 AM CDT Narrative [facility] - 11/21/2019 12:55 PM CDT ? [facility] ?[address] [place], [place] ??[address] ? Test Date: ?2019-11-21 Pat Name: ? ALTHEA TO ?Department: ? Room: ? 301 Gender: ? Female ? 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 : ?1965 ? Requested By: RUSSELL TAYLOR Order Number: [id number] ? Reading MD: ?? Misbah Garcia ? Measurements Intervals ?[place] ? Rate: ? 63 ? P: ?46 GA: ? 177 ?QRS: ?-25 QRSD: ? 101 ?T: ?23 QT: ? 386 ? QTc: ?398 ? 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: : 1965 Requested By: RUSSELL GRIMALDO Order Number: [id number] Reading MD: Misbah Garcia Measurements Intervals [place] Rate: 63 P: 46 GA: 177 QRS: -25 QRSD: 101 T: 23 QT: 386 QTc: 398 Interpretive Statements SINUS RHYTHM BORDERLINE LEFT AXIS DEVIATION MINIMAL VOLTAGE CRITERIA FOR LVH, CONSIDER NORMAL VARIANT Russell Grimaldo MD ECG ORDERABLES Final Result Performing Organization Address [facility]/ZIP Co de Phone Number [facility] * PARTIAL THROMBOPLASTIN TIME,PTT (11/21/2019 2:50 AM CDT) PTT 36.9 27.5 - 38.9 SEC 11/21/2019 8:09 AM CDT [facility] Comment:THERAPEUTIC RANGE: 4 9.8-83.0 SEC 11/21/2019 2:50 AM CDT Russell Grimaldo MD LABORATORY Final Result Performing Organization Address [facility]/ZIP Co de Phone Number [facility] [address] [place] [id number], * PROTIME/INR, VENOUS (11/21/2019 2:50 AM CDT) PROTIME 11.5 10.8 - 13.2 SEC 11/21/2019 8:09 AM CDT [facility] INR 1.0 0.9 - 1.1 11/21/2019 8:09 AM CDT [facility] 11/21/2019 2:50 AM CDT us Russell Grimaldo MD LABORATORY Final Result Performing Organization Address [facility] Co de Phone Number [facility] [address] [place] [address], * (ABNORMAL) LACTIC ACID (11/21/2019 2:50 AM CDT) LACTIC ACID VENOUS 4.6(HH) 0.4 - 2.0 MMOL/L 11/21/2019 8:11 AM CDT [facility] Comment: AN ORDER FOR A REPEAT LACTIC ACID TEST IS REQUIRED WITHIN 6 HOURS OF DIAGNOSIS ON A PATIENT WITH SEVERE SEPSIS. CALLED TO [facility] R and V CRITICAL VALUE 11/21/2019 2:50 AM CDT us Russell Grimaldo MD LABORATORY Final Result Performing Organization Address [facility] Co de Phone Number [facility] [address] [place] [address], * (ABNORMAL) COMPREHENSIVE METABOLIC PANEL (11/21/2019 2:50 AM CDT) SODIUM S/P/B 140 136 - 145 MMOL/L 11/21/2019 7:47 AM CDT [facility] POTASSIUM S/P/B 3.5 3.5 - 5.1 MMOL/L 11/21/2019 7:47 AM CDT [facility] CHLORIDE S/P/B 103 98 - 107 MMOL/L 11/21/2019 7:47 AM CDT [facility] CO2 23.1 21.0 - 32.0 MMOL/L 11/21/2019 7:47 AM CDT [facility] GLUCOSE 132(H) 70 - 99 MG/DL 11/21/2019 7:47 AM CDT [facility] Comment: FASTING GLUCOSE 100 TO 125 MG/DL IS CONSISTENT WITH IMPAIRED FASTING GLUCOSE. FASTING GLUCOSE >125 MG/DL IS CONSISTENT WITH DIABETES. RANDOM GLUCOSE >200 MG/DL WITH HYPERGLYCEMIC SYMPTOMS IS CONSISTENT WITH DIABETES. PER ADA GUIDELINES BUN 16 6 - 24 MG/DL 11/21/2019 7:47 AM T [facility] CREATININE S/P/B 0.91 0.55 - 1.02 MG/DL 11/21/2019 7:47 AM T [facility] CALCIUM S/P/B 9.9 8.4 - 10.5 MG/DL 11/21/2019 7:47 AM [facility] BILIRUBIN TOTAL S/P/B 0.5 0.2 - 1.0 MG/DL 11/21/2019 7:47 AM [facility] Comment: THIS ASSAY IS NOT RECOMMENDED FOR PATIENTS UNDERGOING TREATMENT WITH ELTROMBOPAG DUE TO THE POTENTIAL FOR FALSELY ELEVATED RESULTS. ALKALINE PHOSPHATASE S/P/B 55 41 - 108 U/L 11/21/2019 7:47 AM [facility] AST 14(L) 15 - 37 U/L 11/21/2019 7:47 AM [facility] ALT 30 14 - 59 U/L 11/21/2019 7:47 AM [facility] TOTAL PROTEIN S/P/B 8.4(H) 6.4 - 8.2 G/DL 11/21/2019 7:47 AM [facility] ALBUMIN S/P/B 4.1 3.4 - 5.0 G/DL 11/21/2019 7:47 AM [facility] ANION GAP 13.9 5.0 - 15.0 MMOL/L 11/21/2019 7:47 AM [facility] OSMOLALITY (CALC) 293 MOSM/KG 020 7:47 AM [facility] Comment:REFERENCE RANGE NOT ESTABLISHED EGFR NON-AFR. AMER. 72(L) >89 ML/MIN/1. 73 M2 11/21/2019 7:47 AM T [facility] EGFR AFR. AMER. 83(L) >89 ML/MIN/1. 73 M2 11/21/2019 7:47 AM CDT [facility] GFR NOTES GFR REFERENCE S: 11/21/2019 7:47 AM CDT [facility] Comment: THE ESTIMATED GFR IS CALCULATED USING THE 2009 CKD-EPI EQUATION. THE FOLLOWING CATEGORIES FOR GRADING RENAL FUNCTION ARE RECOMMENDED BY THE INTERNATIONAL SOCIETY OF NEPHROLOGY (KDIGO 2012 CLINICAL PRACTICE GUIDELINE). G1,NORMAL OR HIGH: >89 ml/min/1.73 m2 G2,MILDLY DECREASED: 60-89 ml/min/1.73 m2 G3A,MILDLY TO MODERATELY DECREASED: 45-59 ml/min/1.73 m2 G3B,MODERATELY TO SEVERELY DECREASED: 30-44 ml/min/1.73 m2 G4,SEVERELY DECREASED: 15-29 ml/min/1.73 m2 G5,KIDNEY FAILURE: <15 ml/min/1.73 m2 11/21/2019 2:50 AM CDT us Russell Grimaldo MD LABORATORY Final Result Performing Organization Address City/[facility] Co de Phone Number [facility] [place] [address], * (ABNORMAL) D-DIMER, QUANTITATIVE (11/21/2019 2:50 AM CDT) [facility] D-DIMER 575(H) <501 ng{FEU}/mL 11/21/2019 7:45 AM CDT [facility] Comment: A D DIMER RESULT LESS THAN OR EQUAL TO 500 NG/ML FEU HAS A NEGATIVE PREDICTIVE VALUE GREATER THAN 96% FOR THE EXCLUSION OF ACUTE PULMONARY EMBOLISM OR DEEP VEIN THROMBOSIS WHEN THERE IS LOW TO MODERATE PRETEST PROBABILITY. 11/21/2019 2:50 AM CDT us Russell Grimaldo MD LABORATORY Final Result Performing Organization Address City/[facility]/ZIP Co de Phone Number [facility] [address] [place] [address], * CULTURE, BACTERIA, BLOOD (11/21/2019 2:50 AM CDT) SPEC DESCRIPTION BLOOD 11/21/2019 7:14 AM CDT [facility] SPECIAL REQUESTS NO SPECIAL REQUEST 11/21/2019 7:14 AM CDT [facility] CULTURE RESULT NO GROWTH 5 DAYS 11/26/2019 1:08 PM CDT [facility] BLOOD SPECIMEN OBTAINED FOR BLOOD CULTURE / Unknown 11/21/2019 2:50 AM CDT 11/21/2019 7:40 AM CDT us Russell Grimaldo MD MICROBIOLOGY - GENERAL ORDERABLE S Final Result [facility] [address] [place] [address], * TROPONIN, QUANT (11/21/2019 2:50 AM CDT) TROPONIN I <0.017 0.000 - 0.056 ng/mL. 11/21/2019 7:47 AM CDT [facility] Comment: ALTHOUGH VALUES OVER 0.056 ARE CONSIDERED ABNORMAL AND REPRESENT MYOCARDIAL DAMAGE,A CUTOFF OF 0.600 HAS BEEN RECOMMENDED REPRESENTING ACUTE MYOCARDIAL INFARCTION. 11/21/2019 2:50 AM CDT us Russell Grimaldo MD LABORATORY Final Result Performing Organization Address City/[facility]/ZIP Co de Phone Number [facility] [place] [address], * LIPASE (11/21/2019 2:50 AM CDT) LIPASE 126 73 - 393 UNITS/L 11/21/2019 7:47 AM CDT [facility] 11/21/2019 2:50 AM CDT us Russell Grimaldo MD LABORATORY Final Result Performing Organization Address [facility]/ZIP Co de Phone Number [facility] [address] [place] [address], * (ABNORMAL) CBC W/DIFF AUTOMATED (11/21/2019 2:50 AM CDT) WBC 8.4 4.5 - 10.8 x10'3/uL 11/21/2019 7:46 AM CDT [facility] RBC 4.26 4.10 - 5.40 x10'6/uL 11/21/2019 7:46 AM CDT [facility] HGB 13.0 12.0 - 16.0 G/DL 11/21/2019 7:46 AM CDT [facility] HCT 39.0 36.0 - 47.0 % 11/21/2019 7:46 AM CDT [facility] MCV 91.5 78.0 - 100.0 FL 11/21/2019 7:46 AM CDT [facility] MCH 30.5 27.0 - 31.0 PG 11/21/2019 7:46 AM CDT [facility] MCHC 33.3 33.0 - 36.0 G/DL 11/21/2019 7:46 AM CDT [facility] RDW 12.9 11.5 - 14.5 % 11/21/2019 7:46 AM CDT [facility] PLT 298 150 - 350 x10'3/uL 11/21/2019 7:46 AM CDT [facility] MPV 11.0(H) 7.4 - 10.4 FL 11/21/2019 7:46 AM CDT [facility] DIFFERENTIAL COMMENT NORMAL REFERENCE RANGE NOT ESTABLISHED FOR THE PROPORTIONAL LEUKOCYTE DIFFERENTIAL. 11/21/2019 7:46 AM CDT [facility] SEG NEUTROPHILS 80.5 % 0 7:46 AM CDT [facility] LYMPHOCYTES 13.7 % 11/21/2019 7:46 AM CDT [facility] MONOCYTES 4.9 % 11/21/2019 7:46 AM CDT [facility] EOSINOPHILS 0.1 % 11/21/2019 7:46 AM CDT [facility] BASOPHILS 0.6 % 11/21/2019 7:46 AM CDT [facility] IMMATURE GRANS % 0.2 % 11/21/19 7:46 AM CDT [facility] NRBC 0.0 % 11/21/2019 7:46 AM CDT [facility] ABS. NEUTROPHILS 6.76 1.60 - 8.30 x10'3/uL 11/21/2019 7:46 AM CDT [facility] ABS. LYMPHOCYTES 1.15 0.80 - 4.70 x10'3/uL 11/21/2019 7:46 AM CDT [facility] ABS. MONOCYTES 0.41 0.00 - 1.50 x10'3/uL 11/21/2019 7:46 AM CDT [facility] ABS. EOSINOPHILS 0.01 0.00 - 0.40 x10'3/uL 11/21/2019 7:46 AM CDT [facility] ABS. BASOPHILS 0.05 0.00 - 0.20 x10'3/uL 11/21/2019 7:46 AM CDT [facility] ABS. IMMATURE GRANULOCYTES 0.02 0.00 - 0.03 x10'3/uL 11/21/2019 7:46 AM CDT [facility] ABS. NUCLEATED RBC'S 0.00 0.00 x10'3/uL 11/21/2019 7:46 AM CDT [facility] 11/21/2019 2:50 AM CDT Russell Grimaldo MD LABORATORY Final Result [facility] [address] [place] [address], * CULTURE, BACTERIA, BLOOD (11/21/2019 2:40 AM CDT) SPEC DESCRIPTION BLOOD 11/21/2019 7:14 AM CDT [facility] SPECIAL REQUESTS NO SPECIAL REQUEST 11/21/2019 7:14 AM CDT [facility] CULTURE RESULT NO GROWTH 5 DAYS 11/26/2019 1:08 PM CDT [facility] BLOOD SPECIMEN OBTAINED FOR BLOOD CULTURE / Unknown 11/21/2019 2:40 AM CDT 11/21/2019 7:41 AM CDT Russell Grimaldo MD MICROBIOLOGY - GENERAL ORDERABLE S Final Result [facility] [address] [place] [address], documented in this encounter Visit Diagnoses Diagnosis Lactic acid acidosis- Primary Acidosis Lactic acidosis Acidosis Dehydration Gastroenteritis Other and unspecified noninfectious gastroenteritis and colitis Gastroenteritis Other and unspecified noninfectious gastroenteritis and colitis Positive D dimer Abnormal coagulation profile Dizziness of unknown cause Dizziness and giddiness Diarrhea Vomiting Vomiting alone EKG, abnormal Nonspecific abnormal electrocardiogram (ECG) (EKG) Elevated CO2 level Abnormal arterial blood gases documented in this encounter Admitting Diagnoses Diagnosis Gastroenteritis Other and unspecified noninfectious gastroenteritis and colitis Vomiting Vomiting alone documented in this encounter Administered Medications Inactive Administered Medications - up to 3 most recent administrations Medication Order MAR Action Action Date Dose Rate Site acetaminophen (TYLENOL) tablet 650 mg 650 mg, Oral, Every 4 hours PRN, Mild pain (Scale 1 - 3), Starting on Fri11/21/19 at 1309, Until Tu11/23/19 at 1651, Maximum dose of acetaminophen is 4000 mg from all sources in 24 hours. Given 11/23/2019 6:18 AM CDT 650 mg Given 11/22/2019 11:37 PM CDT 650 mg Given 11/22/2019 6:34 PM CDT 650 mg aspirin chewable tablet 81 mg 81 mg, Oral, Daily, First dose on Fri11/21/19 at 1300, Until Discontinued Given 11/22/2019 8:47 AM CDT 81 mg Given 11/21/2019 1:01 PM CDT 81 mg carvedilol (COREG) tablet 12.5 mg 12.5 mg, Oral, 2 times daily, First dose on Fri11/21/19 at 2100, Until Discontinued, Auto-sub for atenolol 100mg daily Take with meal or snack Given 11/23/2019 8:39 AM CDT 12.5 mg Given 11/22/2019 8:25 PM CDT 12.5 mg Given 11/22/2019 8:47 AM CDT 12.5 mg citalopram (CeleXA) tablet 10 mg 10 mg, Oral, Daily, First dose on Fri11/21/19 at 1300, Until Discontinued, Auto-sub for lexapro 5mg Given 11/23/2019 8:39 AM CDT 10 mg Given 11/22/2019 8:48 AM CDT 10 mg Given 11/21/2019 1:01 PM CDT 10 mg enoxaparin (LOVENOX) 40 MG/0.4ML syringe 40 mg 40 mg, Subcutaneous, Every 24 hours, First dose on Fri11/21/19 at 1215, Until Discontinued, Administer by deep SubQ injection alternating between the left or right anterolateral and left or right posterolateral abdominal wall. Given 11/22/2019 11:30 AM CDT 40 mg Right Lower Abdomen Given 11/21/2019 12:11 PM CDT 40 mg R ight Lower Abdomen gabapentin (NEURONTIN) capsule 300 mg 300 mg, Oral, Nightly, First dose on Fri11/21/19 at 2100, Until Discontinued Given 11/22/2019 8:25 PM CDT 300 mg Given 11/21/2019 8:52 PM CDT 300 mg hydroCHLOROthiazide (HYDRODIURIL) tablet 25 mg 25 mg, Oral, Every morning, First dose on Fri11/22/19 at 0700, Until Discontinued Given 11/23/2019 6:17 AM CDT 25 mg Given 11/22/2019 6:08 AM CDT 25 mg iopamidol (ISOVUE-370) 76 % injection 95 mL 95 mL, Intravenous, IMG once as needed, Contrast, 1 dose, Starting on Fri11/21/19 at 0611, Until Fri11/21/19 at 0611 Given 11/21/2019 6:11 AM CDT 95 mLs lactated ringers infusion at 125 mL/hr, Intravenous, Continuous, Starting on Fri11/21/19 at 1715, Until Fri11/21/19 at 1323 New Bag 11/21/2019 1:02 PM CDT 125 mL/hr lactated ringers infusion at 125 mL/hr, Intravenous, Continuous, Starting on Fri11/21/19 at 1345, Until Fri11/23/19 at 0957 New Bag 11/23/2019 6:18 AM CDT 125 mL/hr New Bag 11/22/2019 9:52 PM CDT 125 mL/hr New Bag 11/22/2019 1:39 PM CDT 125 mL/hr LORazepam (ATIVAN) tablet 0.5 mg 0.5 mg, Oral, Every 6 hours PRN, Anxiety, Starting on Fri11/21/19 at 1232, Until Fri11/23/19 at 1651 Given 11/22/2019 8:25 PM CDT 0.5 mg Given 11/22/2019 2:16 AM CDT 0.5 mg losartan (COZAAR) tablet 100 mg 100 mg, Oral, Daily, First dose on Fri11/21/19 at 1300, Until Discontinued Given 11/23/2019 8:39 AM CDT 100 mg Given 11/22/2019 8:48 AM CDT 100 mg Given 11/21/2019 1:01 PM CDT 100 mg ondansetron (ZOFRAN) injection 4 mg 4 mg, Intravenous, Once, 1 dose, On Fri11/21/19 at 0815, IV push over 2-5 minutes. Given 11/21/2019 8:20 AM CDT 4 mg Left Arm ondansetron (ZOFRAN) injection 4 mg 4 mg, Intravenous, Every 8 hours PRN, Nausea, Vomiting, Starting on Fri11/21/19 at 1155, Until Fri11/23/19 at 1651, IV push over 2-5 minutes. Given 11/22/2019 6:34 PM CDT 4 mg Given 11/21/2019 3:51 PM CDT 4 mg oxybutynin (DITROPAN) tablet 5 mg 5 mg, Oral, 2 times daily, First dose on Fri11/21/19 at 2100, Until Discontinued, Auto-sub for oxybutynin 10mg xl daily Given 11/23/2019 8:39 AM CDT 5 mg Given 11/22/2019 8:25 PM CDT 5 mg Given 11/22/2019 8:48 AM CDT 5 mg sodium chloride 0.9% infusion at 200 mL/hr, Intravenous, Once, 1 dose, On Fri11/21/19 at 0815 New Bag 11/21/2019 8:19 AM CDT 1,000 mLs 200 mL/hr Left Arm traMADol (ULTRAM) tablet 50 mg 50 mg, Oral, Every 6 hours PRN, Moderate pain (Scale 4 - 7), Starting on Fri11/22/19 at 1133, Until Fri11/23/19 at 1651 Given 11/22/2019 11:51 AM CDT 50 mg documented in this encounter Active and Recently Administered Medications Times are shown in CDT. Scheduled Medication Order 11/21/2019 11/22/2019 11/23/2019 aspirin chewable tablet 81 mg 81 mg, Oral, Daily, First dose on 11/21/19 at 1300, Until Discontinued 1301 (Given - Provider: Carla Gordon RN) 0847 (Given - Provider: Lima Wilson RN) 0838 (Not Given - Provider: Jessica Parra RN - Reason: Other - Comment: procedure)0952 (MAR Hold - Provider: User Epic - Reason: Unreviewed Transfer Orders)1137 (MAR Unhold - Provider: User Epic) carvedilol (COREG) tablet 12.5 mg 12.5 mg, Oral, 2 times daily, First dose on 11/21/19 at 2100, Until Discontinued, Auto-sub for atenolol 100mg daily Take with meal or snack 2051 (Given - Provider: Elvira Wilkinson RN) 0847 (Given - Provider: Lima Wilson, CHARLEY)2024 (Given - Provider: Hiral Hunt RN) 0839 (Given - Provider: Jessica Parra RN)0952 (MAR Hold - Provider: User Epic - Reason: Unreviewed Transfer Orders)1137 (MAR Unhold - Provider: User Epic) citalopram (CeleXA) tablet 10 mg 10 mg, Oral, Daily, First dose on 11/21/19 at 1300, Until Discontinued, Auto-sub for lexapro 5mg 1301 (Given - Provider: Carla Gordon RN) 0848 (Given - Provider: Lima Wilson RN) 0839 (Given - Provider: Jessica Parra, CHARLEY)0952 (MAR Hold - Provider: User Epic - Reason: Unreviewed Transfer Orders)1137 (MAR Unhold - Provider: User Epic) enoxaparin (LOVENOX) 40 MG/0.4ML syringe 40 mg (CANCELED)(Linked Group 1) 40 mg, Subcutaneous, Every 24 hours, First dose on 11/21/19 at 1215, Until Discontinued, Administer by deep SubQ injection alternating between the left or right anterolateral and left or right posterolateral abdominal wall. 1211 (Given - Provider: Carla Gordon RN) 1130 (Given - Provider: Lima Wilson RN) gabapentin (NEURONTIN) capsule 300 mg 300 mg, Oral, Nightly, First dose on 11/21/19 at 2100, Until Discontinued 2051 (Given - Provider: Elvira Wilkinson RN) 2024 (Given - Provider: Hiral Hunt RN) 0952 (MAR Hold - Provider: User Epic - Reason: Unreviewed Transfer Orders)1137 (MAR Unhold - Provider: User Epic) hydroCHLOROthiazide (HYDRODIURIL) tablet 25 mg 25 mg, Oral, Every morning, First dose on Fri11/22/19 at 0700, Until Discontinued 0608 (Given - Provider: Elvira Wilkinson RN) 06 (Given - Provider: Hiral Hunt RN)0952 (MAR Hold - Provider: User Epic - Reason: Unreviewed Transfer Orders)1137 (MAR Unhold - Provider: User Epic) losartan (COZAAR) tablet 100 mg 100 mg, Oral, Daily, First dose on 11/21/19 at 1300, Until Discontinued 1301 (Given - Provider: Carla Gordon RN) 0848 (Given - Provider: Lima Wilson RN) 0839 (Given - Provider: Jessica Parra RN)0952 (MAR Hold - Provider: User Epic - Reason: Unreviewed Transfer Orders)1137 (MAR Unhold - Provider: User Epic) ondansetron (ZOFRAN) injection 4 mg (COMPLETED) 4 mg, Intravenous, Once, 1 dose, On 11/21/19 at 0815, IV push over 2-5 minutes. 0820 (Given - Provider: Laurie Serrano RN) oxybutynin (DITROPAN) tablet 5 mg 5 mg, Oral, 2 times daily, First dose on 11/21/19 at 2100, Until Discontinued, Auto-sub for oxybutynin 10mg xl daily 2051 (Given - Provider: Elvira Wilkinson RN) 0848 (Given - Provider: Lima Wilson RN)2024 (Given - Provider: Hiral Hunt RN) 0839 (Given - Provider: Jessica Parra RN)0952 (SEP Hold - Provider: User Epic - Reason: Unreviewed Transfer Orders)1137 (SEP Unhold - Provider: User Epic) sodium chloride 0.9% infusion (COMPLETED) at 200 mL/hr, Intravenous, Once, 1 dose, On 11/21/19 at 0815 0819 (New Bag - Provider: Laurie Serrano, CHARLEY)1301 (Infusion Stop Time - Provider: Carla Gordon, CHARLEY) Continuous Medication Order 11/21/2019 11/22/2019 11/23/2019 lactated ringers infusion (CANCELED) at 125 mL/hr, Intravenous, Continuous, Starting on 11/21/19 at 1715, Until 11/21/19 at 1323 1302 (New Bag - Provider: Carla Gordon, CHARLEY) lactated ringers infusion (CANCELED) at 125 mL/hr, Intravenous, Continuous, Starting on 11/21/19 at 1345, Until 11/23/19 at 0957 1346 (Not Given - Provider: Carla Gordon RN - Reason: Contraindicated)2050 (New Bag - Provider: Elvira Wilkinson RN) 0505 (Infusion Stop Time - Provider: Elvira Wilkinson RN)0506 (New Bag - Provider: Elvira Wilkinson RN)1330 (Infusion Stop Time - Provider: Lima Wilson, CHARLEY)1339 (New Bag - Provider: Lima Wilson, CHARLEY)2151 (Infusion Stop Time - Provider: Hiral Hunt RN)2152 (New Bag - Provider: Hiral Hunt RN) 0617 (Infusion Stop Time - Provider: Hiral Hunt RN)0618 (New Bag - Provider: Hiral Hunt RN)0952 (SEP Hold - Provider: User Epic - Reason: Unreviewed Transfer Orders)0957 (SEP Unhold - Provider: VIANNEY Steel-) PRN Medication Order 11/21/2019 11/22/2019 11/23/2019 acetaminophen (TYLENOL) tablet 650 mg 650 mg, Oral, Every 4 hours PRN, Mild pain (Scale 1 - 3), Starting on 11/21/19 at 1309, Until Tu11/23/19 at 1651, Maximum dose of acetaminophen is 4000 mg from all sources in 24 hours. 1547 (Given - Provider: Carla Gordon RN) 0215 (Given - Provider: Elvira Wilkinson RN)0847 (Given - Provider: Lima Wilson, CHARLEY)1834 (Given - Provider: Lima Wilson, CHARLEY)2337 (Given - Provider: Hiral Hunt, CHARLEY) 0618 (Given - Provider: Hiral Hunt RN)0952 (MAR Hold - Provider: User Epic - Reason: Unreviewed Transfer Orders)1137 (MAR Unhold - Provider: User Epic) iopamidol (ISOVUE-370) 76 % injection 95 mL (COMPLETED) 95 mL, Intravenous, IMG once as needed, Contrast, 1 dose, Starting on 11/21/19 at 0611, Until 11/21/19 at 0611 0611 (Given - Provider: Maribell Jose, RTR) LORazepam (ATIVAN) tablet 0.5 mg 0.5 mg, Oral, Every 6 hours PRN, Anxiety, Starting on 11/21/19 at 1232, Until Tu11/23/19 at 1651 0216 (Given - Provider: Elvira Wilkinson RN)2025 (Given - Provider: Hiral Hunt RN) 0952 (MAR Hold - Provider: User Epic - Reason: Unreviewed Transfer Orders)1137 (MAR Unhold - Provider: User Epic) ondansetron (ZOFRAN) injection 4 mg 4 mg, Intravenous, Every 8 hours PRN, Nausea, Vomiting, Starting on 11/21/19 at 1155, Until Tu11/23/19 at 1651, IV push over 2-5 minutes. 1551 (Given - Provider: Carla Gordon RN) 1834 (Given - Provider: Lima Wilson RN) 0952 (MAR Hold - Provider: User Epic - Reason: Unreviewed Transfer Orders)1137 (MAR Unhold - Provider: User Epic) traMADol (ULTRAM) tablet 50 mg 50 mg, Oral, Every 6 hours PRN, Moderate pain (Scale 4 - 7), Starting on 11/22/19 at 1133, Until 11/23/19 at 1651 1151 (Given - Provider: Lima Wilson RN) 0952 (SEP Hold - Provider: User Epic - Reason: Unreviewed Transfer Orders)1137 (SEP Unhold - Provider: User Epic) Linked Groups Order Group 1: enoxaparin (LOVENOX) 40 MG/0.4ML syringe 40 mg (CANCELED)Jump to med 40 mg, Subcutaneous, Every 24 hours, First dose on 11/21/19 at 1215, Until Discontinued, Administer by deep SubQ injection alternating between the left or right anterolateral and left or right posterolateral abdominal wall. And Moderate Risk for VTE (COMPLETED) documented in this encounter Additional Health Concerns Infection Onset Date Last Indicated Resolved Time COVID-19 Rule Out 11/21/2019 11/21/2019 11/22/2019 4:35 PM CDT documented as of this encounter Care Teams Workforce Advisor Relationship Specialty Start Date End Date Cristy Guan MD [address] [place] [address] PCP - General INTERNAL MEDICINE 11/21/19 documented as of this encounter
--- OUTSIDE RECORDS SUMMARY | 2024-07-15 23:58 | XMS_ITS | Encounter Summary ---
Author Organization [facility] Address [facility] [facility] 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 No / Unsure 11/21/2019 6:50 AM CDT documented as of this encounter Functional Status * Question Answer Date of Assessment Author Status Do you have serious difficulty walking or climbing stairs? No 11/21/2019 9:39 AM CDT ReMarco jim RN Active * Question Answer Date of Assessment Author Status Do you have difficulty dressing or bathing? No 11/21/2019 9:39 AM CDT Ruddy Gordon RN Active Because of a physical, mental, or emotional condition, do you have difficulty doing errands alone such as visiting a doctor's office or shopping? No 11/21/2019 9:39 AM Marco Arteaga RN Active * RETIRED Are you deaf [...] documented as of this encounter Care Teams Principal Consulting Engineer Relationship Specialty Start Date End Date Tushar West MD [address] [place] [address] PCP - General INTERNAL MEDICINE 11/21/19 documented as of this encounter
--- OUTSIDE RECORDS SUMMARY | 2024-07-15 23:58 | XMS_ITS | Encounter Summary ---
Author Organization [facility] Address [facility] [facility] [place] [place] [address] [place] [address] Care Team Providers Care Security Orderly Name Role Phone Tushar West MD Primary Care Provider [phone] Reason for Visit * Auth/Cert Specialty Diagnoses / Procedures Referred By Contac t Referred To Contact Diagnoses Dehydration Lactic acidosis Gastroenteritis Vomiting Gastroenteritis Lactic acid acidosis Referral ID Status Reason Start Date Expiration Date Visits Re quested Visits Authorized [id number] 1 1 Encounter Details Date Type Department Care Team (Late st Contact Info) Description 11/23/2019 10:43 AM CDT Anesthesia Event [address] [place] [address] Elvin Beasley MD [facility] [place] [address] Anesthesia Record Procedure Summary Procedure Name Responsible Anesthesiologist Anesthesia Start Time Anesthesia Stop Time EGD WITH BIOPSIES (Esophagus) 11/23/19 1043 11/23/19 1056 Events Date Time Event Comment 11/23/2019 1040 1043 An Start Patient ID and consent checked and patient reassessed. 1043 An Start Data 1044 Nasal Cannula Applied 1046 Anesthesia Ready 1053 Face Mask Applied 1055 an stop data 1055 Post Anesthetic Care Handoff I completed my handoff to the receiving nurse during which we: 1. Identified the patient 2. Identified the responsible provider 3. Reviewed the pertinent medical history 4. Discussed the surgical course 5. Reviewed intra-op anesthesia management and issues during anesthesia 6. Set expectations for post-procedure period 7. Allowed opportunity for questions and acknowledgement of understanding. 1056 An Stop Meds Name Total propofol (DIPRIVAN) 500 mg/50 mL injecti on 94.6 mg lidocaine (PF) (XYLOCAINE) 1% injection 100 mg propofol (DIPRIVAN) 500 mg/50 mL IV bolu s from infusion 100 mg lactated ringers infusion 100 mL * Agents Name O2 Ancillary O2 * Blood No blood administrations on file. 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 Gender Identity Not on file Sexual Orientation [...] Arteaga RN Active documented in this encounter OR Notes * Anesthesia Postprocedure Evaluation - Elvin Beasley MD - 11/23/2019 2:09 PM CDT Anesthesia Post-op Note Olga Kong Procedure(s): EGD WITH BIOPSIES (N/A Esophagus) Anesthesia type: MAC Vitals: 11/23/19 1315 BP: 133/54 Vitals: 11/23/19 1315 Pulse: 64 Vitals: 11/23/19 1315 Resp: 18 Vitals: 11/23/19 1315 Temp: 37.4 ??C Vitals: 11/23/19 1315 SpO2: 96% Patient Location: Phase II/Outpatient Level of Consciousness: awake, alert and oriented Pain Management: adequate analgesia Airway Patency: patent Respiratory Status: spontaneous ventilation and acceptable Cardiovascular Status: acceptable, stable and hemodynamically stable Post-Op Nausea: none Postoperative Hydration: euvolemic Complications: no anesthesia complication * Anesthesia Preprocedure Evaluation - Elvin Beasley MD - 11/23/2019 10:29 AM CDT Anesthesia ROS/MED History Reviewed: Patient summary , ECG, Family history anesthesia, Anesthesia history , Medications , Labs Pre-Anesthetic State: alert, awake and responds appropriately Pulmonary (+) sleep apnea, (CPAP) Cardiovascular Exercise tolerance:good (+) hypertension ROS comment: EKG with borderline LAD Neuro/Psych neg neuro/psych ROS (+) depression GI/Hepatic/Renal neg GI/hepatic/renal ROS Endo/Other (+) obese, (Super Morbid) Comments: BMI 72 Physical Evaluation Airway Mallampati: II TM Distance: >3 FB Neck ROM: normal Dental No notable dental history Pulmonary Pulmonary exam normal Breath sounds clear to auscultation Cardiovascular Rhythm: regular Rate: normal Cardiovascular exam normal Anesthesia Plan ASA 4 Intravenous Induction Anesthesia type: MAC Informed Consent Anesthetic plan and risks discussed with patient of whom consent was obtained. . documented in this encounter Plan of Treatment Not on file documented as of this encounter Visit Diagnoses Not on filedocumented in this encounter Administered Medications Inactive Administered Medications - up to 3 most recent administrations Medication Order MAR Action Action Date Dose Rate Site lactated ringers infusion Continuous PRN, Starting on Fri11/23/19 at 1043, Until Fri11/23/19 at 1057, Anesthesia Intra-Op New Bag 11/23/2019 10:43 AM CDT lidocaine (PF) (XYLOCAINE) 1 % injection PRN, Starting on Fri11/23/19 at 1045, Until Fri11/23/19 at 1057, Anesthesia Intra-Op Given 11/23/2019 10:45 AM CDT 100 mg propofol (DIPRIVAN) 500 mg/50 mL bolus PRN, Starting on Fri11/23/19 at 1047, Until Fri11/23/19 at 1057, Anesthesia Intra-Op Given 11/23/2019 10:47 AM CDT 100 mg propofol (DIPRIVAN) IV bolus Intravenous, Continuous PRN, Starting on Fri11/23/19 at 1047, Until Fri11/23/19 at 1057, Anesthesia Intra-Op New Bag 11/23/2019 10:47 AM CDT 100 mcg/kg/min 113.5 mL/hr documented in this encounter Care Teams Security Orderly Relationship Specialty Start Date End Date Tushar West MD [address] [place] [address] PCP - General INTERNAL MEDICINE 11/21/19 documented as of this encounter
--- OUTSIDE RECORDS SUMMARY | 2024-07-15 23:58 | XMS_ITS | Encounter Summary ---
Author Organization [facility] Address [facility] [facility] 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
--- OUTSIDE RECORDS SUMMARY | 2024-07-15 23:58 | XMS_ITS | Encounter Summary ---
Author Organization [facility] Address [facility] [facility] 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
--- OUTSIDE RECORDS SUMMARY | 2024-07-15 23:58 | XMS_ITS | Encounter Summary ---
Author Organization [facility] Address [facility] [place] [address] [place] [address] Care Team Providers Care Golf Manager Name Role Phone Cristy Guan MD Primary Care Provider [phone] Reason for Referral * (Routine) - Canceled Specialty Diagnoses / Procedures Referred By Luc schwartz Referred To Contact Procedures PT Eval and Treat [facility] 4[facility] [address] [place] [address] Phone: tel: Referral ID Status Reason Start Date Expiration Date V isits Requested Visits Authorized [id number] Canceled 03/11/2020 04/10/2021 1 1 * (Routine) - Canceled Specialty Diagnoses / Procedures Referred By Luc t Referred To Contact Procedures OT Eval and Treat Heber Lorenzana MD Phone: tel: fax: Referral ID Status Reason Start Date Expiration Date V isits Requested Visits Authorized [id number] Canceled 03/11/2020 04/10/2021 1 1 * (Routine) - Canceled Specialty Diagnoses / Procedures Referred By Contac t Referred To Contact Procedures PT Eval and Treat Heber Lorenzana MD Phone: tel: fax: Referral ID Status Reason Start Date Expiration Date V isits Requested Visits Authorized [id number] Canceled 03/11/2020 04/10/2021 1 1 * Imaging (Routine) - Closed Specialty Diagnoses / Procedures Referred By Contac t Referred To Contact RADIOLOGY Procedures USE ECHOCARDIOGRAM W CON USE ECHOCARDIOGRAM Jayda Patel DO Referral ID Status Reason Start Date Expiration Date Visits Re quested Visits Authorized [id number] Closed 03/03/2020 04/03/2021 1 1 * Imaging (Urgent) - Closed Specialty Diagnoses / Procedures Referred By Contac t Referred To Contact Procedures IR REPLACE PICC WO PORT PUMP [address] [facility] [address] [place] [address] Phone: tel: Referral ID Status Reason Start Date Expiration Date Visits Re quested Visits Authorized [id number] Closed 03/03/2020 04/03/2021 1 1 * Imaging (Urgent) - Closed Specialty Diagnoses / Procedures Referred By Contac t Referred To Contact RADIOLOGY Procedures CTA CHEST Clarence Gil MD Phone: tel: fax: Referral ID Status Reason Start Date Expiration Date Visits Re quested Visits Authorized [id number] Closed 03/02/2020 04/02/2021 1 1 * Imaging (Urgent) - Closed Specialty Diagnoses / Procedures Referred By Contac t Referred To Contact Procedures IR PICC PLC GREATER [address]YR [address] [place] [address] Phone: tel: Referral ID Status Reason Start Date Expiration Date Visits Re quested Visits Authorized [id number] Closed 03/01/2020 04/01/2021 1 1 Reason for Visit * Auth/Cert Specialty Diagnoses / Procedures Referred By Contac t Referred To Contact Diagnoses ACUTE HYPOXIC RESPIRATORY FAILURE RO COVID Respiratory failure (CMS/HCC) Procedures GENERAL Referral ID Status Reason Start Date Expiration Date Visits Re quested Visits Authorized [id number] 1 1 Encounter Details Date Type Department Care Team (Latest Contact Info) Description 02/29/2020 4:09 PM CDT - 03/12/2020 2:38 PM CDT Hospital Encounter [address] [place] [address] Isela Fitzpatrick MD [address] [place] [address] Clarence Gil MD [address] [place] [id number] Jayda Patel DO Saha, Debdoot, MD Yousuf, Muhammad S, MD [address] [place] [address] Discharge Disposition: Home or Self Care (Routine [...] on file Legal Sex Female 5:52 PM 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 Yes 02/29/2020 10:11 AM CDT documented as of this encounter Last Filed Vital Signs Vital Sign Reading Time Taken Comments Blood Pressure 94/61 03/12/2020 11:58 AM CDT Pulse 70 03/12/2020 11:58 AM CDT Temperature 36.6 ??C (97.9 ??F) 03/12/2020 1 1:58 AM CDT Respiratory Rate 20 03/12/2020 11:5 8 AM CDT Oxygen Saturation 95% 03/12/2020 11: 58 AM CDT Inhaled Oxygen Concentration - - Weight 184.9 kg (407 lb 9.6 oz) 03/01/2020 5:00 AM CDT Height 162.6 cm (5' 4 ) 02/29/2020 4:19 PM CDT Body Mass Index 69.96 02/29/2020 4:19 PM CDT documented in this encounter Functional [...] documented in this encounter Discharge Summaries * Heber Lorenzana MD - 03/12/2020 11:13 AM CDT Physician Discharge Summary Patient ID: Althea Kong [id number] 54-year-old 1965 Admit date: 02/29/2020 Expected Discharge Date: 03/12/2020 Primary care Physician: CRISTY GUAN MD Admitting Physician: Heber Lorenzana MD Discharge Physician: Heber Lorenzana MD Admission Diagnoses: ACUTE HYPOXIC RESPIRATORY FAILURE RO COVID Respiratory failure ([facility]) Discharge Diagnoses: Acute hypoxic respiratory failure COVID-19 pneumonia Low-grade fevers Leukocytosis Anxiety/depression OHS on CPAP Hypertension Discharged Condition: stable Hospital Course: 54 years old female with past medical history of GERD, hypertension, anxiety/depression, OHS on CPAP at night, admitted with acute hypoxic respiratory failure due to COVID-19 pneumonia. She finished IV azithromycin on 03/04/2020, IV ceftriaxone 02/24/2020. She finished 5 days of Remdesevir on 03/06/2020. She got IV dexamethasone during her inpatient stay and will be discharged on a tapering dose due to prolonged course. He was initially on IV heparin drip due to elevated D-dimers and was switched to DVT prophylaxis Lovenox once her D-dimers trended down. Her oxygen requirements improved from high flow nasal cannula to low flow nasal cannula to room air during hospitalization. She remained comfortable on room air with saturation above 90% for more than 24 hours prior to discharge. Her low-grade fevers and leukocytosis had resolved prior to discharge and she was afebrile for morethan 24 hours prior to discharge. She had anxiety/panic attacks initially requiring Precedex and ICU but had remained calm on the floor after being downgraded from the ICU. Patient is medically stable to be discharged to home today. COVID-19 instructions provided. Consults: ID Code Status: Full Code Procedures/Significant Diagnostic Studies: XR CHEST PORTABLE Final Result by User, [id number] (03/10 112) SINGLE VIEW OF THE CHEST Clinical history: Fever Comparison: March 08, 2020 A single view of the chest demonstrates the cardiac silhouette and mediastinal contours to be within normal limits for size and appear stable. The pulmonary vessels are normally distributed. Minimal patchy groundglass opacities are noted throughout the lungs. These have not changed significantly in the interval. No consolidation or pleural fluid is seen IMPRESSION: Stable chest Interpreted By: Isaiah Castro MD, 03/10/2020 11:20 AM XR CHEST PORTABLE Final Result by User, [id number] (03/08 1403) SINGLE VIEW OF THE CHEST Clinical history: Hypoxia Comparison: March 05, 2020 A single view of the chest demonstrates mild cardiomegaly which is stable. Patchy bilateral groundglass opacities throughout the lungs are slightly improved in the interval. No airspace consolidation is seen. No pleural fluid is noted IMPRESSION: Improving chest Interpreted By: Isaiah Castro MD, 03/08/2020 2:02 PM XR CHEST PORTABLE Final Result by User, [id number] (03/05 1110) SINGLE VIEW OF THE CHEST Clinical history: Shortness of breath Comparison: February 29, 2020 A single view of the chest demonstrates the cardiac silhouette and mediastinal contours to be within normal limits for size and appears stable. Patchy bilateral groundglass opacities have not changed appreciably from the previous exam. No areas of dense airspace consolidation are seen. No significant pleural fluid is seen IMPRESSION: Persistent patchy bilateral groundglass opacities consistent with viral pneumonia Interpreted By: Isaiah Castro MD, 03/05/2020 11:08 AM USE ECHOCARDIOGRAM W CON Final Result by User, [id number] (03/04 1944) Echocardiography Report Pat.Name: ALTHEA KONG Pat.ID: [id number] St.Date: 03/04/2020 Refer.MD: JAYDA PATEL Exam Time: 2:32:00 PM Study Type:ECHO W/CONTRAST COMPLETE Height: 63.78in Weight: 407lb BSA: 2.64 m2 Age: 9 1965,54Y Sex: FEMALE HR: 65 bpm Sonogrphr: [facility] Pat. 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 ++++++++++++++++++++++++++++++++++++ SUMMARY: ++++++++++++++++++++++++++++++++++++ The left ventricular size is normal. The left ventricular systolic function is normal. The calculated ejection fraction is 66%. Left ventricular diastolic function is abnormal (grade 2 - pseudonormal pattern). Right ventricular systolic function is normal. The left atrial volume is normal ( less than 34 ml/M2). The aortic valve is trileaflet. No evidence of aortic valve stenosis. Structurally normal mitral valve. Structurally normal tricuspid valve. ++++++++++++++++++++++++++++++++++++ FINDINGS: ++++++++++++++++++++++++++++++++++++ LV: The left ventricular size is normal. The left ventricular systolic function is normal. The calculated ejection fraction is 66%. Left ventricular diastolic function is abnormal (grade 2 - pseudonormal pattern). Left ventricular filling pressure is elevated. LVOT: The left ventricular outflow tract size is normal. RV: The right ventricular size is normal. Right ventricular systolic function is normal. IVS: Intraventricular septum is normal. LA: The left atrial volume is normal ( less than 34 ml/M2). RA: The right atrial size is normal. RYAN: No evidence of pericardial effusion. AO: Normal aortic root. PA: Unable to reliably quantitate pulmonary systolic pressure. PVn: Pulmonary vein velocity is consistent with normal left atrial pressures. SVn: Systemic veins not well visualized. AV: The aortic valve is trileaflet. No evidence of aortic valve stenosis. Trace aortic regurgitation. MV: Structurally normal mitral valve. Trace mitral regurgitation. No evidence of mitral stenosis. PV: Structurally normal pulmonic valve. Trace pulmonic regurgitation. No evidence of pulmonic valve stenosis. TV: Structurally normal tricuspid valve. A trace of tricuspid regurgitation. No evidence of tricuspid valve stenosis. ++++++++++++++++++++++++++++++++++++ MEASUREMENTS: ++++++++++++++++++++++++++++++++++++ DOPPLER LVOT LVOTpkPG 4 mmHg LVOTmnPG 2 mmHg LVOTpkVel 97.3 cm/s (70-110) LVOT SV 62 ml LVOT TVI 19.8 cm AV Forward Flow AV TVI 26.7 cm AV pkPG 10 mmHg AV pkVel 159 cm/s (100-170) Area (TVI) 2.33 cm2 (3-5)* AV mnVel 88.9 cm/s Area (Cody) 1.92 cm2 (3-5)* AV mnPG 4 mmHg MV Forward Flow MV DeTm 254 ms MV E/A 1.3 MVA P1/2t 2.97 cm2 (4-6)* MV pkE 96.8 cm/s (60-130) MV P1/2t 74 ms (30-60)+* MV pkA 75.8 cm/s Lat E' Lat e 8.74 cm/s Lat E/E' Lat E/e 11.1 Med E' Med e 6.56 cm/s Med E/E' Med E/e 14.8 Aortic Valve Aortic Valve Ar 0.88 Aortic Valve Ve 0.61 AV DI Value 0.7 ALLAN (VTI) Index Value 0.88 LV Mass 2D Value 364 g LV Mass [id number] Value 138 g/m2 2D Left Ventricle LVIDd 5.82 cm (3.6-5.2)* LV EF(Bi-Plane) 65.9 % (55-75) LVIDs 4.99 cm (2.3-3.9)* LVPW LVPWd 1.19 cm Ventricular Septum IVSd 1.58 cm LVOT LVOT 2 cm Ratios IVS LA Biplane LAVol I BP 34.5 ml/m2 MMODE Left Atrium LAID 4.7 cm (1.9-4)* Ratios LA/Ao 1.15 (0.87-1.1)* Aorta Ao Rt 4.1 cm (2-3.7)* Signed 03/04/2020 07:44 PM Larisa Velazquez M.D. IR REPLACE PICC WO PORT PUMP Final Result by User, [id number] (03/04 0950) IR Procedure Note Pre op diagnosis: Larger bore PICC needed for CTA chest. Post Op Diagnosis: same Procedure: Attempted PICC exchange with placement of midline. Grafts/Implants: none Radiologist: Lizbeth Amado, Efrain Marc PA-C Finger Waver: none Technique /Findings: Procedure and risks were discussed with patient including risks of bleeding, infection, thrombosis, possible injury to artery or nerve etc. Informed consent was obtained. The left arm was prepped and draped in sterile fashion; including indwelling PICC line. All elements of maximal sterile barrier technique as well as all elements of sterile ultrasound technique were utilized during this procedure. Timeout was performed. A guidewire was placed through the indwelling dual-lumen PICC line. The indwelling dual-lumen PICC line was gently removed over the guidewire. Peel-away sheath was placed. Multiple attempts were made to place a 5 Fijian dual-lumen PICC line over the guidewire; however due to vasospasm a 5 Fijian dual-lumen PICC line was unable to be placed over the guidewire. A 4 Fijian single lumen 20 cm midline was then placed over the guidewire. Ultrasound was used to visualize the midline within the left basilic vein. Midline flushed freely. Midline was secured in place with Stat Lock device and sterile dressing applied. No complications. Permanent ultrasound image was recorded. Drains: none Complications: none Estimated Blood Loss: <5 ml Specimens removed: none Condition: good Impression: Procedure note for attempted PICC exchange with placement of midline. The attending radiologist, Dr. Nieves, was in the department for all critical portions of the procedure, has reviewed the images, and agrees with the content of this report. Dictated By: NACHO Conn on 03/03/2020 9:31 PM Interpreted By: NACHO Conn, 03/03/2020 9:31 PM CTA CHEST Final Result by User, [id number] (03/03 8783) Examination: CTA CHEST Exam time: 03/02/2020 9:32 PM Clinical history: Covid 19 related pneumonia, respiratory failure. Comparison: 11/21/2019 Technique: Axial images obtained from the lung apices to the adrenal glands with intravenous injection of 80 mL Isovue 370 contrast using low-dose CT technique. Sagittal and coronal MIP reconstruction. Findings: No evidence of axillary nor supraclavicular lymphadenopathy. Small mediastinal lymph nodes are visible. No significant mediastinal nor hilar lymphadenopathy. Thoracic aortic arch is normal in caliber. Pulmonary arteries are fairly well opacified. There is no CT evidence for acute pulmonary embolus. Cardiac chambers are at the upper limits of normal for size to slightly enlarged. No pericardial thickening or pericardial effusion. No hiatal hernia. Lung parenchymal images demonstrate extensive mixed groundglass and airspace consolidation opacities involving predominantly the mid and lower lung regions bilaterally. Findings consistent with pneumonia and would be consistent with Covid 19 infection. No significant pleural effusion. No evidence of pneumothorax. IMPRESSION: 1) No CT evidence for acute pulmonary embolism. 2. Extensive mixed groundglass and airspace consolidation mid and lower lung bilaterally consistent with pneumonia. No significant pleural effusion. Interpreted By: Roverto Rodriguez MD, 03/03/2020 6:56 PM IR PICC PLC GREATER 5YR Final Result by User, [id number] (03/02 2613) PROCEDURE: Left upper extremity double lumen peripherally inserted central venous catheter (PICC). DATE : 03/02/2020 2:34 PM INDICATION: IV antibiotics needed. PHYSICIANS: Sandi Andersen M.D., Efrain Macr PA-C MEDICATIONS: Local lidocaine anesthesia only. FLUOROSCOPY TIME: 0.25 minutes and 1 fluoroscopic image sent to PACS. TECHNIQUE AND FINDINGS: The patient was brought to the fluoroscopy suite, placed in the supine position, and a timeout was performed. The patient's Left upper extremity was then sterilely prepped and draped. Maximal sterile barrier techniques were utilized throughout the procedure; including hand cleaning with alcohol based hand rub. Sterile ultrasound barrier techniques were utilized throughout the procedure. Ultrasound evaluation of potential access sites was performed. Following local anesthesia with 1% lidocaine, a 21 gauge needle was used to puncture the patent brachial vein several centimeters above the antecubital fossa under ultrasound guidance, with image saved for the permanent record. An 0.018 inch wire was advanced through the needle into the central veins, as confirmed fluoroscopically. The needle was then exchanged over the wire for a peel-away sheath. A 4 Fijian double lumen PICC was cut to an appropriate length of 52 cm and advanced through the peel-away sheath. The wire and peel-away sheath were removed. The tip of the PICC tip was located at the cavoatrial junction on final recorded fluoroscopic image. The PICC aspirated and flushed well and was flushed with heparinized saline. The catheter was secured to the skin at the exit site and a sterile dressing was applied. The patient appeared to tolerate the procedure well. IMPRESSION: Placement of a Left upper extremity 4 Fijian double lumen peripherally inserted central venous catheter, as detail above. PLAN: The catheter is ready for immediate use. The attending radiologist, Dr. Andersen, was in the department for all critical portions of the procedure, has reviewed the images, and agrees with the content of this report. Dictated By: NACHO Conn on 03/02/2020 2:34 PM Interpreted By: NACHO Conn, 03/02/2020 2:34 PM Discharge Exam: Patient was seen and examined on day of discharge, vitals were stable. Disposition: Home Patient Instructions: Current Discharge Medication List START taking these medications Details dexamethasone 2 MG tablet Take 3 tablets (6 mg total) by mouth 2 (two) times daily with meals for 3days. DEXAMETHASONWE TAPER INSTRUCTIONS: Take 6 mg every day for 3 days, then Take 4 mg every day for 3 days, then Take 2 mg every day for 3 days, then Take 1 mg every day for 3 days, then stop. Qty: 15 tablet, Refills: 0 furosemide 40 MG tablet Take 1 tablet (40 mg total) by mouth daily for 30 days. Qty: 30 tablet, Refills: 0 lidocaine 4 % patch Place 1 patch onto the skin daily. Remove & Discard patch within 12 hours or as directed by Qty: 30 patch, Refills: 0 CONTINUE these medications which have NOT CHANGED Details omeprazole 40 MG capsule Take 40 mg by mouth daily. oxybutynin 5 MG tablet Take 10 mg by mouth 2 (two) times daily. sucralfate 1 G tablet Take 1 g by mouth 4 (four) times daily. aspirin 81 MG chewable tablet Chew 81 mg by mouth daily. escitalopram 5 MG tablet Take 5 mg by mouth daily. gabapentin 300 MG capsule Take 300 mg by mouth nightly. LORazepam 0.5 MG tablet Take 0.5-1 mg by mouth nightly as needed for Anxiety. losartan 100 MG tablet Take 100 mg by mouth daily. STOP taking these medications atenolol 100 MG tablet hydroCHLOROthiazide 25 MG tablet oxybutynin XL 5 MG 24 hr tablet Wound Care: none needed No follow-up provider specified. Total time spent on discharge was more than 30 minutes. Thank you for allowing [facility] hospitalist service to take care of your patient, Please call [phone] ext [phone] if you have any questions or concern. Signed: Heber Lorenzana MD 03/12/2020 11:13 AM documented in this encounter Discharge Instructions * Discharge Instructions* Heber Lorenzana MD - 03/12/2020 11:13 AM CDT What to do if you are sick with coronavirus disease 2019 (COVID-19) Since you have tested positive for COVID19, please follow the steps below to help prevent the disease from spreading to people in your home and community. Stay home except to get medical care You should restrict activities outside your home, except for getting medical care. Do not go to work, school, or public areas. Avoid using public transportation, ride-sharing, or taxis. Separate yourself from other people and animals in your home People: As much as possible, you should stay in a specific room and away from other people in your home. Also, you should use a separate bathroom, if available. Animals: Do not handle pets or other animals while sick. See COVID-19 and Animals for more information. Call ahead before visiting your doctor If you have a medical appointment, call the healthcare provider and tell them that you recently tested positive for COVID-19. This will help the healthcare provider's office take steps to keep other people from getting infected or exposed. Wear a facemask You should wear a facemask when you are around other people (e.g., sharing a room or vehicle) or pets and before you enter a healthcare provider's office. If you are not able to wear a facemask (for example, because it causes trouble breathing), then people who live with you should not stay in the same room with you, or they should wear a facemask if they enter your room. Cover your coughs and sneezes Cover your mouth and nose with a tissue when you cough or sneeze. Throw used tissues in a lined trash can; immediately wash your hands with soap and water for at least 20 seconds or clean your hands with an alcohol-based hand diamond finishing supervisor that contains at least 60-95% alcohol covering all surfaces of your hands and rubbing them together until they feel dry. Soap and water should be used preferentially if hands are visibly dirty. Avoid sharing personal household items You should not share dishes, drinking glasses, cups, eating utensils, towels, or bedding with otherpeople or pets in your home. After using these items, they should be washed thoroughly with soap and water. Clean your hands often Wash your hands often with soap and water for at least 20 seconds. If soap and water are not available, clean your hands with an alcohol-based hand diamond finishing supervisor that contains at least 60% alcohol, covering all surfaces of your hands and rubbing them together until they feel dry. Soap and water should be used preferentially if hands are visibly dirty. Avoid touching your eyes, nose, and mouth with unwashed hands. Clean all high-touch surfaces every day High touch surfaces include counters, tabletops, doorknobs, bathroom fixtures, toilets, phones, keyboards, tablets, and bedside tables. Also, clean any surfaces that may have blood, stool, or body fluids on them. Use a household cleaning spray or wipe, according to the label instructions. Labels contain instructions for safe and effective use of the cleaning product including precautions you should take when applying the product, such as wearing gloves and making sure you have good ventilation during use of the product. Monitor your symptoms Seek prompt medical attention if your illness is worsening (e.g., difficulty breathing).Increased or thicker phlegm/mucous, coughing more than usual and/or shortness of breath. Call 911 for: ?? Severe shortness of breath even at rest ?? not able to do activity or sleep due to breathing problem ?? fever or shaking chills ?? drowsiness or confusion ?? coughing up blood If you have a medical emergency and need to call 911, notify the dispatch personnel that you have, or are being evaluated for COVID-19. If possible, put on a facemask before emergency medical services arrive. Discuss use of emergency pack [like prednisone and antibiotics] during your follow-up appointment with your primary care physician. Avoid inhaled irritants. Do not smoke. Continue activities as instructed by Pulmonary rehab. Before seeking care, call your healthcare provider and tell them that you have recently tested positive for COVID-19. Put on a facemask before you enter the facility. These steps will help the healthcare provider's office to keep other people in the office or waiting room from getting infected or exposed. Persons who are placed under active monitoring or facilitated self-monitoring should follow instructions provided by their local health department or occupational health professionals, as appropriate. Discontinuing home isolation Patients with confirmed COVID-19 should remain under home isolation precautions until the risk of secondary transmission to others is thought to be low. The decision to discontinue home isolation precautions should be made on a [id number] basis, in consultation with healthcare providers and [facility] the [facility] health departments. [place] Department of Public Health will follow up with you. Their phone number is [phone] For more information: www.cdc.gov/COVID19 YOUR TEST WAS POSITIVE ON 02/29/2020, YOU need to SELF ISOLATE YOURSELF UNTILL 03/21/2020 -Follow-up with your PCP after your self-isolation is over for further management of her health issues -I have discontinued your atenolol and hydrochlorothiazide and started you on oral Lasix 40 mg daily. documented in this encounter Medications at Time of Discharge aspirin 81 MG chewable tablet Chew 1 tablet (81 mg total) by mouth daily. gabapentin 300 MG capsule Take 1 capsule (300 mg total) by mouth 2 (two) times a day. dexamethasone 2 MG tablet Take 3 tablets (6 mg total) by mouth 2 (two) times daily with meals for 3 days. DEXAMETHASONWE TAPER INSTRUCTIONS: Take 6 mg every day for 3 days, then Take 4 mg every day for 3 days, then Take 2 mg every day for 3 days, then Take 1 mg every day for 3 days, then stop. 15 tablet 03/12/2020 0 escitalopram 5 MG tablet Take 5 mg by mouth daily. 3 furosemide 40 MG tablet Take 1 tablet (40 mg total) by mouth daily for 30 days. 30 tablet 03/12/2020 0 lidocaine 4 % patch Place 1 patch onto the skin daily. Remove & Discard patch within 12 hours or as directed by 30 patch 03/12/2020 3 LORazepam 0.5 MG tablet Take 1-2 tablets (0.5-1 mg total) by mouth nightly as needed for Anxiety. 02/03/20 2 4 losartan 100 MG tablet Take 100 mg by mouth daily. 3 omeprazole 40 MG capsule Take 40 mg by mouth daily. 3 oxybutynin 5 MG tablet Take 2 tablets (10 mg total) by mouth 2 (two) times daily. 4 sucralfate 1 G tablet Take 1 g by mouth 4 (four) times daily. 09/11/19 2 3 documented as of this encounter Progress Notes * Heber Lorenzana MD - 03/11/2020 11:04 AM CDT COVID Progress note SUBJECTIVE: Patient seen via withdrawal conference call She is off oxygen on room air, appears comfortable Upset that she could not use her CPAP overnight We will plan for PT evaluation today. Chief Complaint: COVID-19 pneumonia, acute hypoxic respiratory failure Review of Systems Constitutional: Negative for chills and fever. Respiratory: Negative for cough and shortness of breath. Cardiovascular: Negative for chest pain and leg swelling. Gastrointestinal: Negative for abdominal pain, nausea and vomiting. Genitourinary: Negative for dysuria, frequency and urgency. OBJECTIVE Vital signs: Blood pressure (!) 142/90, pulse 76, temperature 97 ??F (36.1 ??C), temperature sourceOral, resp. rate 20, height 5' 4 (1.626 m), weight (!) 184.9 kg (407 lb 9.6 oz), SpO2 95 %. Physical examination; Head: Atraumatic, normocephalic Constitutional: Morbidly obese Eyes: sclera; no icterus, no pallor, EOMI. , no lid-lag or proptosis Heart: regular rate and rhythm on tele monitor Respiratory: normal effort, no respiratory distress Abdomen: not distended Musculoskeletal : no cyanosis or gross edema Skin: No rash, lesion or ulcer Neuro: cranial nerves, intake, patient is alert, Oriented *3. Moves all extremities Psych: mood and affect appropriate. LABS:. Recent Labs 03/09/2049903/10/20 0400 WBC 10.9* 11.0* HGB 12.6 13.3 HCT 38.6 41.0 MCV 91.7 93.6 PLT 401* 406* RBC 4.21 4.38 Recent Labs Lab 03/08/2049903/09/20 05003/10/20 0400 NA 136 135* 135* K 3.9 3.1* 3.7 CL 99 97* 98 CO2 31.1 32.0 27.8 AGAP 5.9 6.0 9.2 BUN 23* 24* 28* CR 0.73 0.70 0.85 GFRNON >90 >90 78* GFR >90 >90 >90 GLU 136* 141* 142* CA 8.8 9.4 9.6 TP 8.1 8.6* 8.7* ALB 4.1 4.7 4.8 TBIL 1.0 1.0 1.2* ALKP 51 52 53 AST 42* 31 32 ALT 76* 77* 80* Recent Labs Lab 03/08/20 05003/09/20 0500 03/10/20 0400 INR 1.1 1.2* 1.2* Intake/Output Summary (Last 24 hours) at 03/11/2020 1104 Last data filed at 03/10/2020 2300 Gross per 24 hour Intake 240 ml Output 1 ml Net 239 ml RADIOLOGY : REVIEWED MEDICATIONS Scheduled medications ??? acetaminophen 650 mg Oral 4 times per day ??? aspirin 81 mg Oral Daily ??? citalopram 20 mg Oral Daily ??? clonazePAM 0.5 mg Oral BID ??? cyclobenzaprine 10 mg Oral 2 times per day ??? dexamethasone 6 mg Intravenous Q12H ??? enoxaparin 40 mg Subcutaneous 2 times per day ??? famotidine 20 mg Intravenous 2 times per day Or ??? famotidine 20 mg Oral 2 times per day ??? furosemide 40 mg Oral BID ??? gabapentin 300 mg Oral Nightly at bedtime ??? guaiFENesin ER 600 mg Oral BID ??? lidocaine 1 patch Transdermal Q24H ??? losartan 50 mg Oral Daily ??? oxybutynin 10 mg Oral BID ??? pantoprazole 40 mg Intravenous Daily ??? potassium chloride 40 mEq Oral Once Infusion PRN albuterol sulfate HFA, guaiFENesin, LORazepam, melatonin, naLOXone, ondansetron, polyethylene glycol, Senna, traMADol ASSESSMENT /PLAN Althea Kong is a 54-year-old female Admitted with Respiratory failure ([facility]) PLAN: #Acute hypoxic respiratory failure #COVID-19 pneumonia -Saturations have remained above 90% on room air. -Finished IV azithromycin on 03/04/2020, IV ceftriaxone on 03/05/2020 -Remdesevir finished on 03/06/2020. Getting IV dexamethasone 6 mg daily. -Overall inflammatory markers have improved. Her IV heparin drip has been stopped and she is on subcutaneous Lovenox for DVT prophylaxis -ID has signed off. #Low-grade fevers #Leukocytosis -T-max of 100.2 in the last 24 hours. -Patient is hemodynamically stable, has no active signs of infection -Her UA is negative, urine cultures are pending. Chest x-ray does not show any consolidation. -We will hold off on restarting antibiotics for now #OHS on CPAP at night -Continue with CPAP at bedtime and during naps #Anxiety/depression -Severe anxiety/panic attacks requiring Precedex drip in ICU -On clonazepam 0.5 mg twice daily and IV Ativan 0.5 mg every 6 hours as needed -Appears calm, will clinically monitor and taper down the benzos as allowed. #History of hypertension -Blood pressure is trending up, will start losartan 50 mg p.o. daily. Keep holding atenolol/hydrochlorothiazide #History of GERD -IV Protonix DVT Prophylaxis: Subcutaneous Lovenox Code status: Full Code Disposition We will keep the patient on room air today. Have PT come and see the patient. Tentative discharge tomorrow if doing well. This encounter was conducted through teleconference due to patient's COVID-19 suspected status to minimize exposure and protect PPE's. I introduced and identified myself, received verbal consent?from the patient to proceed with this video visit and made the patient aware that the same confidentiality and health information provider practices apply. The patient joined the video visit from room??476??at [facility]. I completed the virtual visit from??my office??on the fourth floor of [facility].?The following clinical staff Amy??helped with this visit. Heber Lorenzana MD 11:04 AM 03/11/2020 * Jaquan Graves RN - 03/11/2020 2:59 AM CDT Problem: Pain Goal: Patient's pain/discomfort is manageable Description Assess and monitor patient's pain using appropriate pain scale. Collaborate with interdisciplinary team and initiate plan and interventions as ordered. Re-assess patient's pain level 30 - 60 minutes after pain management intervention. Outcome: Progressing Problem: Safety Goal: Patient will be injury free during hospitalization Description Assess and monitor vitals signs, neurological status including level of consciousness and orientation. Assess patient's risk for falls and implement fall prevention plan of care and interventions perhospital policy. Ensure arm band on, uncluttered walking paths in room, adequate room lighting, call light and overbed table within reach, bed in low position, wheels locked, side rails up per policy, and non-skid footwear provided. Outcome: Progressing Problem: Daily Care Goal: Daily care needs are met Description Assess and monitor ability to perform self care and identify potential discharge needs. Outcome: Progressing Problem: Psychosocial Needs Goal: Demonstrates ability to cope with hospitalization/illness Description Assess and monitor patients ability to cope with his/her illness. Outcome: Progressing Goal: Collaborate with patient/family/caregiver to identify patient specific goals for this hospitalization Outcome: Progressing Problem: Discharge Barriers Goal: Patient's discharge needs are met Description Collaborate with interdisciplinary team and initiate plans and interventions as needed. Outcome: Progressing Problem: Reduced risk for falls/injury Goal: Reduced Risk for Falls/Injury Outcome: Progressing * Heber Lorenzana MD - 03/10/2020 1:51 PM CDT COVID Progress note SUBJECTIVE: Patient seen via withdrawal conference call Was using BiPAP, reports episodic anxiety but calm this morning Encouraged to be up in the chair Nurse advised to taper down oxygen Chief Complaint: COVID-19 pneumonia, acute hypoxic respiratory failure Review of Systems Constitutional: Positive for fever. Negative for chills. Respiratory: Negative for cough and shortness of breath. Cardiovascular: Negative for chest pain and leg swelling. Gastrointestinal: Negative for abdominal pain, nausea and vomiting. Genitourinary: Negative for dysuria, frequency and urgency. OBJECTIVE Vital signs: Blood pressure (!) 147/89, pulse 71, temperature 97 ??F (36.1 ??C), temperature sourceOral, resp. rate 23, height 5' 4 (1.626 m), weight (!) 184.9 kg (407 lb 9.6 oz), SpO2 96 %. Physical examination; Head: Atraumatic, normocephalic Constitutional: Morbidly obese Eyes: sclera; no icterus, no pallor, EOMI. , no lid-lag or proptosis Heart: regular rate and rhythm on tele monitor Respiratory: Oxygen via nasal cannula, normal effort, no respiratory distress Abdomen: not distended Musculoskeletal : no cyanosis or gross edema Skin: No rash, lesion or ulcer Neuro: cranial nerves, intake, patient is alert, Oriented *3. Moves all extremities Psych: mood and affect appropriate. LABS:. Recent Labs 03/08/2049903/09/2049903/10/20 0400 WBC 11.8* 10.9* 11.0* HGB 12.0 12.6 13.3 HCT 36.9 38.6 41.0 MCV 92.5 91.7 93.6 PLT 406* 401* 406* RBC 3.99* 4.21 4.38 Recent Labs Lab 03/08/2049903/09/200 03/10/20 0400 NA 136 135* 135* K 3.9 3.1* 3.7 CL 99 97* 98 CO2 31.1 32.0 27.8 AGAP 5.9 6.0 9.2 BUN 23* 24* 28* CR 0.73 0.70 0.85 GFRNON >90 >90 78* GFR >90 >90 >90 GLU 136* 141* 142* CA 8.8 9.4 9.6 TP 8.1 8.6* 8.7* ALB 4.1 4.7 4.8 TBIL 1.0 1.0 1.2* ALKP 51 52 53 AST 42* 31 32 ALT 76* 77* 80* Recent Labs Lab 03/08/20 0500 03/09/20 0500 03/10/20 0400 INR 1.1 1.2* 1.2* Intake/Output Summary (Last 24 hours) at 03/10/2020 1351 Last data filed at 03/09/2020 1600 Gross per 24 hour Intake 400 ml Output 1000 ml Net -600 ml RADIOLOGY : REVIEWED MEDICATIONS Scheduled medications ??? acetaminophen 650 mg Oral 4 times per day ??? aspirin 81 mg Oral Daily ??? citalopram 20 mg Oral Daily ??? clonazePAM 0.5 mg Oral BID ??? cyclobenzaprine 10 mg Oral 2 times per day ??? dexamethasone 6 mg Intravenous Q12H ??? enoxaparin 40 mg Subcutaneous 2 times per day ??? famotidine 20 mg Intravenous 2 times per day Or ??? famotidine 20 mg Oral 2 times per day ??? furosemide 40 mg Oral BID ??? gabapentin 300 mg Oral Nightly at bedtime ??? guaiFENesin ER 600 mg Oral BID ??? lidocaine 1 patch Transdermal Q24H ??? oxybutynin 10 mg Oral BID ??? pantoprazole 40 mg Intravenous Daily ??? potassium chloride 40 mEq Oral Once Infusion PRN albuterol sulfate HFA, guaiFENesin, LORazepam, melatonin, naLOXone, ondansetron, polyethylene glycol, Senna, traMADol ASSESSMENT /PLAN Althea Kong is a 54-year-old female Admitted with Respiratory failure ([facility]) PLAN: #Acute hypoxic respiratory failure #COVID-19 pneumonia -Using 2 L oxygen via nasal cannula, advised the nurse to taper off to room air if able to maintainsaturation above 90% -Finished IV azithromycin on 03/04/2020, IV ceftriaxone on 03/05/2020 -Remdesevir finished on 03/06/2020. Still getting IV dexamethasone 6 mg twice daily, plan to taper down to 6 mg daily tomorrow if improving -Overall inflammatory markers have improved. D-dimer is down to 1158 today. We will stop IV heparindrip and start the patient on Lovenox 40 mg twice daily for prophylaxis. -ID has signed off. #Low-grade fevers #Leukocytosis -Low-grade fevers of around 100 ??F, low-grade leukocytosis with neutrophilia -Patient is hemodynamically stable, has no active signs of infection -I will check UA/urine cultures, blood cultures and chest x-ray -We will hold off on restarting antibiotics for now #OHS on CPAP at night -Continue with CPAP at bedtime and during naps #Anxiety/depression -Severe anxiety/panic attacks requiring Precedex drip in ICU -On clonazepam 0.5 mg twice daily and IV Ativan 0.5 mg every 6 hours as needed -Appears calm, will clinically monitor and taper down the benzos as allowed. #History of hypertension -All antihypertensives have been held. Will restart if blood pressure starts trending up. #History of GERD -IV Protonix DVT Prophylaxis: Subcutaneous Lovenox Code status: Full Code This encounter was conducted through teleconference due to patient's COVID-19 suspected status to minimize exposure and protect PPE's. I introduced and identified myself, received verbal consent?from the patient to proceed with this video visit and made the patient aware that the same confidentiality and health information provider practices apply. The patient joined the video visit from room??476??at [facility]. I completed the virtual visit from??my office??on the fourth floor of [facility].?The following clinical staff Amy??helped with this visit. Heber Lorenzana MD 1:51 PM 03/10/2020 * Jaquan Graves RN - 03/10/2020 2:51 AM CDT Problem: Daily Care Goal: Daily care needs are met Description Assess and monitor ability to perform self care and identify potential discharge needs. Outcome: Progressing Problem: Psychosocial Needs Goal: Demonstrates ability to cope with hospitalization/illness Description Assess and monitor patients ability to cope with his/her illness. Outcome: Progressing Goal: Collaborate with patient/family/caregiver to identify patient specific goals for this hospitalization Outcome: Progressing Problem: Infection - Risk of, Urinary Catheter-Associated Urinary Tract Infection Goal: Absence of infection signs and symptoms Outcome: Progressing Problem: Reduced risk for falls/injury Goal: Reduced Risk for Falls/Injury Outcome: Progressing Goal: Reduced Risk of Confusion (Acute vs Chronic) Outcome: Progressing Goal: Reduced Risk of Symptomatic Depression Outcome: Progressing Goal: Reduced Risk of Altered Elimination Outcome: Progressing Goal: Reduced Risk of Dizziness/Vertigo/Balance Outcome: Progressing Goal: Reduced Risk of Polypharmacy Outcome: Progressing * Shelton Ospina MD - 03/09/2020 5:11 PM CDT Critical Care Medicine [facility], [place], [place] [address]01 Pager: [phone] Daily Progress Note Reason for ICU admission: resp failure Principal Problem: ARDS ICU Timeline: Hospital day: 9 ICU day: 6d 3h Assessment and Plan: Althea Kong is a 54-year-old female admitted 02/29/2020 with Severe COVID PNA ?? Obesity hypoventilation syndrome??on CPAP at night Anxiety / Depression HTN Anxiety disorder? PLAN: -??On??klonopin for anxiety , PRN ativan -Pain control optimized , flexeril , tramadol - improved reps status with BIPAP , on 2-3 L / NC , wean as tolerated , steroids ,??received?C plasma and on??remdesivir , diuresis with lasix 60 TID , repleted Potassium .??Monitor inflammatory markers , CPAP at night and with naps ??.??Elevated Ddimer - full dose anticoagulation?? with heparin. -c/w aguilar , electrolyte replacement protocol - ISS .?? - C/W BPAP with naps and HS DVT Prophylaxis: heparin gtt Code Status: Full Code Disposition: transfer to [facility] Critical Care time spent in evaluation and management of a critically ill or injured patient is 45 minutes, such that the critical illness or injury acutely impairs one or more organ system: resp , cvs ,mortgage closer such that there is a high probability of imminent or life-threatening deterioration in the patient's condition needing immediate attention or presence of critical care physician near bedside for the above time . Complex decisions were made to manipulate and support multiple organ systems. The time listed is exclusive of any procedures which may have been performed. Critical care time includes time spent at bedside performing history and physical exam, time spent researching patient prior to interaction with patient, time spent discussing findings and treatment plan with patient and/or family, time spent discussing patient with consultants and colleagues, time spent reviewing pertinent laboratory and radiographic evaluations, time spent re-evaluating patient, or time spent discussing patient with nursing staff. All of the patient's and his family's questions were answered, and the plan of care going forward was outlined to them. SHELTON OSPINA MD 03/09/2020 5:12 PM Current inpatient medications: Current Facility-Administered Medications: ??? acetaminophen (TYLENOL) tablet 650 mg, 650 mg, Oral, 4 times per day, Shelton Ospina MD, 650 mg at 03/09/20 1500 ??? albuterol sulfate HFA 108 (90 Base) MCG/ACT inhaler 2 puff, 2 puff, Inhalation, Q4H PRN, Isela Fitzpatrick MD, 2 puff at 03/06/20 0944 ??? aspirin chewable tablet 81 mg, 81 mg, Oral, Daily, Isela Fitzpatrick MD, 81 mg at 03/09/20 0932 ??? citalopram (CeleXA) tablet 20 mg, 20 mg, Oral, Daily, Shelton Ospina MD, 20 mg at 03/09/20 0933 ??? clonazePAM (klonoPIN) tablet 0.5 mg, 0.5 mg, Oral, BID, Shelton Ospina MD, 0.5 mg at 03/09/20 0933 ??? cyclobenzaprine (FLEXERIL) tablet 10 mg, 10 mg, Oral, 2 times per day, Shelton Ospina MD, 10 mg at 03/09/20932 ??? dexamethasone (DECADRON) injection 6 mg, 6 mg, Intravenous, Q12H, Clarence Gil MD, 6 mg at 03/09/20 0600 ??? famotidine (PEPCID) injection 20 mg, 20 mg, Intravenous, 2 times per day, 20 mg at 03/03/204 OR famotidine (PEPCID) tablet 20 mg, 20 mg, Oral, 2 times per day, Isela Fitzpatrick MD, 20mg at 03/09/20 0932 ??? furosemide (LASIX) injection 60 mg, 60 mg, Intravenous, TID, Shelton Ospina MD ??? gabapentin (NEURONTIN) capsule 300 mg, 300 mg, Oral, Nightly at bedtime, Clarence Gil MD, 300 mg at 03/08/202007 ??? guaiFENesin (ROBITUSSIN) 100 MG/5ML solution 5 mL, 5 mL, Oral, Q6H PRN, Isela Fitzpatrick MD ??? guaiFENesin ER (MUCINEX) 12 hr tablet 600 mg, 600 mg, Oral, BID, Clarence Gil MD, 600 mg at 03/09/20932 ??? heparin (porcine) injection 10,000 Units, 10,000 Units, Intravenous, PRN, Shelton Ospina MD, 10,000 Units at 03/09/20 1517 ??? heparin (porcine) injection 7,400 Units, 40 Units/kg, Intravenous, PRN, Shelton Ospina MD ??? heparin 25,000 units/250 mL infusion, 0-20 Units/kg/hr, Intravenous, Continuous, Shelton Ospina MD, Last Rate: 21.8 mL/hr at 03/09/20 0704, 11.8 Units/kg/hr at 03/09/20 0704 ??? lidocaine 4 % patch 1 patch, 1 patch, Transdermal, Q24H, Shelton Ospina MD ??? LORazepam (ATIVAN) injection 0.5 mg, 0.5 mg, Intravenous, Q6H PRN, Jayda Patel, , 0.5 mg at03/08/20 2338 ??? melatonin tablet 5 mg, 5 mg, Oral, Nightly PRN, Clarence Gil MD, 5 mg at 03/04/20 2030 ??? naLOXone (NARCAN) injection 0.4 mg, 0.4 mg, Intravenous, PRN, Jayda Patel DO ??? ondansetron (ZOFRAN) injection 4 mg, 4 mg, Intravenous, Q8H PRN, Isela Fitzpatrick MD, 4 mg at 03/02/20 1416 ??? oxybutynin (DITROPAN) tablet 10 mg, 10 mg, Oral, BID, Clarence Gil MD, 10 mg at 03/09/20 0932 ??? polyethylene glycol (GLYCOLAX) packet 17 g, 17 g, Oral, Daily PRN, Jayda Patel DO ??? potassium chloride CR (KLOR-CON M) tablet 40 mEq, 40 mEq, Oral, Once, Shelton Ospina MD ??? Senna (SENOKOT) 8.6 MG tablet 8.6 mg, 8.6 mg, Oral, Daily PRN, Isela Fitzpatrick MD ??? traMADol (ULTRAM) tablet 50 mg, 50 mg, Oral, Q6H PRN, Shelton Ospina MD Subjective: 12 point review of systems was completed and negative except findings reported above in ICU timeline and HPI. Objective: Body mass index is 69.96 kg/m??. Current vital signs Blood pressure (!) 143/97, pulse 74, temperature 99.7 ??F (37.6 ??C), resp. rate 26, height 5' 4 (1.626 m), weight (!) 184.9 kg (407 lb 9.6 oz), SpO2 97 %. Vitals: 03/09/20 1705 BP: Pulse: Resp: Temp: SpO2: 97% 24 hour BP and temperature range @[id number]@ Temp (24hrs), Av.9 ??F (37.2 ??C), Min:97.5 ??F (36.4 ??C), Max:99.9 ??F (37.7 ??C) Input/Output 03/08 1500 - 03/09 1459 In: 1658 [P.O.:800; I.V.:858] Out: 2750 [Urine:2750] Intake/Output Summary (Last 24 hours) at 03/09/2020 1712 Last data filed at 03/09/2020 1600 Gross per 24 hour Intake 2058 ml Output 2550 ml Net -492 ml Physical exam: ?? Gen: Patient alert and awake, anxious ?? Neuro: Moving all extremities, no deficit appreciated ?? Head: Atraumatic and normocephalic ?? Eyes: Pupils equal round and reactive, no jaundice ?? ENT: Moist mucous membrane ?? Neck: No JVD. No CVC ?? Cardiac: S1, S2, no added sounds ?? Pulm: Bilateral air entry, no wheezing or crackles ?? Abdomen: Soft and nontender, bowel sounds present ?? Skin: No rash or erythema ?? Extremities: No edema Data Review: Recent Labs 03/07/20 0500 03/08/20 0500 03/09/20 0500 WBC 8.0 11.8* 10.9* HGB 12.4 12.0 12.6 HCT 38.4 36.9 38.6 MCV 93.0 92.5 91.7 PLT 338 406* 401* RBC 4.13 3.99* 4.21 Recent Labs Lab 03/07/20 0500 03/08/20 0500 03/09/20 0500 NA 137 136 135* K 3.9 3.9 3.1* CL 99 99 97* CO2 31.5 31.1 32.0 AGAP 6.5 5.9 6.0 BUN 19* 23* 24* CR 0.79 0.73 0.70 GFRNON 85* >90 >90 GFR >90 >90 >90 GLU 139* 136* 141* CA 8.7 8.8 9.4 TP 7.7 8.1 8.6* ALB 3.3* 4.1 4.7 TBIL 0.6 1.0 1.0 ALKP 54 51 52 AST 40* 42* 31 ALT 69* 76* 77* Coagulation: Recent Labs 03/07/20 0500 03/08/20 0500 03/09/20 0500 INR 1.2* 1.1 1.2* No results for input(s): TROP, TROPIWB in the last 168 hours. ABG: No results found for: BASEEXCESS VBG: No components found for: PHMIXEDVEN, [id number], [id number], [id number], YA3NDLM Lactic acid: No components found for: LACTATE Invalid input(s): CARDIACPROFILE Results for orders placed or performed during the hospital encounter of 02/29/20 ECG 12 lead Narrative [facility] [address] [place] [address] Test Date: 2020-03-03 Pat Name: ALTHEA ESCALONARY Department: Room: [facility] Gender: Female Scraper Burrer: KATIE : 1965 Requested By: JAYDA PATEL Order Number: [id number] Reading MD: Manish Solomon Measurements Intervals [place] Rate: 56 P: -45 TN: 159 QRS: -22 QRSD: 98 T: 18 QT: 447 QTc: 433 Interpretive Statements SINUS BRADYCARDIA BORDERLINE LEFT AXIS DEVIATION ECG 12 lead Narrative [place] [address] [place] [address] Test Date: 2020-03-05 Pat Name: ALTHEA ESCALONARY Department: Room: [facility] Gender: Female Scraper Burrer: Abundio : 1965 Requested By: JAYDA PATEL Order Number: [id number] Reading MD: Larisa Velazquez Measurements Intervals [place] Rate: 64 P: -22 TN: 157 QRS: -20 QRSD: 102 T: 20 QT: 422 QTc: 438 Interpretive Statements SINUS RHYTHM MINIMAL VOLTAGE CRITERIA FOR LVH, CONSIDER NORMAL VARIANT # Portions of this chart may have been created with voice recognition software. Occasional wrong-word or ???sound-alike?? substitutions may have occurred due to the inherent limitations of voice recognition software. Read the chart carefully and recognize, using context, where these substitutions have occurred. # Part of the above documentation may contains notes/studies/informations copied forward from priornotes, all data reconfirmed and physical examination performed, plans were reconfirmed and new orders entered as needed on the day of this service. ------ SHELTON OSPINA MD 03/09/2020 5:12 PM * Shaquille Chilel RN - 03/09/2020 3:18 AM CDT Problem: Infection/Colonization Infection/Isolation Goal: Absence of infection signs and symptoms Infection/Isolation Outcome: Progressing Problem: Infection - Risk of, Urinary Catheter-Associated Urinary Tract Infection Goal: Absence of infection signs and symptoms Outcome: Progressing Problem: Reduced risk for falls/injury Goal: Reduced Risk for Falls/Injury Outcome: Progressing * Sabrina Cross RD - 03/08/2020 12:39 PM CDT CLINICAL DIETITIAN RESCREEN Patient is a 54-year-old female admitted secondary to ACUTE HYPOXIC RESPIRATORY FAILURE RO COVID Respiratory failure ([facility]). COVID positive Past Medical History: Diagnosis Date ??? Allergies ??? Anxiety ??? Depression ??? Hypertension ??? Neuropathy ??? Obesity ??? Sleep apnea ??? Urinary bladder incontinence Current diet order: Diet cardiac Appropriate; Low Cholesterol; 2 GM NA Current diet appropriate? Na restriction appropriate for HTN. No PMH for hypercholesterolemia / hyperlipidemia noted so may consider d/c this restriction. Appetite adequate? Only 1 meal documented, which was on 02/28 dinner with 20% intake.; Junior scale noted to be probably inadequate for nutrition per nurse documentation. Unable to complete 3-day review due to limited intake data available. Fluid intake - no po intake documented. Na level WNL. Patient receiving EN or TPN? No Admission weight: 181.4 kg (Date: 02/29/20; Method: Stated). Weight on 03/01/20 (bed scale): 184.9 kg Weight stable? No new weight to assess since 03/01/20, which was first actual weight recorded. Last 5 Recorded Weights 02/29/20 1619 03/01/20 0500 Weight: (!) 181.4 kg (399 lb 14.6 oz) (!) 184.9 kg (407 lb 9.6 oz) Body mass index is 69.96 kg/m??. (Obesity Class III) Skin (stage 2 or greater pressure ulcer or other significant non-healing wound)? No Summary: Nutrition risk identified? Will monitor PO intake over the next 3 days to determine need for complete nutrition assessment. Plan: [] Provide basic nutrition services [x] Rescreen for nutrition risk per protocol [] Monitor NPO/clear liquid status [x] Monitor oral intake [] Assess education needs [] Start nutrition assessment Sabrina Cross RD, LDN * Shelton Ospina MD - 03/08/2020 11:26 AM CDT Critical Care Medicine [facility], [place], [place] [address] Pager: [phone] Daily Progress Note Reason for ICU admission: resp failure Principal Problem: Resp failure ICU Timeline: Hospital day: 8 ICU day: 4d 21h Assessment and Plan: Althea Kong is a 54-year-old female admitted 02/29/2020 with Severe COVID PNA ?? Obesity hypoventilation syndrome??on CPAP at night Anxiety / Depression HTN Anxiety disorder? PLAN: - On klonopin for anxiety , PRN ativan , consider low dose precdex in worsens - improved reps status with CPAP , on 5 L / NC , wean as tolerated , steroids ,??received?C plasma and on??remdesivir , antibiotics per ID , diuresis with lasix .??Monitor inflammatory markers , CPAP at night and with naps ??. Elevated Ddimer - full dose anticoagulation -c/w aguilar , electrolyte replacement protocol - heparin drip started with elevated d dimer . - ISS .?? DVT Prophylaxis: full dose heparin Code Status: Full Code Disposition: Continue ICU Status Critical Care time spent in evaluation and management of a critically ill or injured patient is 56 minutes, such that the critical illness or injury acutely impairs one or more organ system: such that there is a high probability of imminent or life-threatening deterioration in the patient's condition needing immediate attention or presence of critical care physician near bedside for the above time . Complex decisions were made to manipulate and support multiple organ systems. The time listed is exclusive of any procedures which may have been performed. Critical care time includes time spent at bedside performing history and physical exam, time spent researching patient prior to interaction with patient, time spent discussing findings and treatment plan with patient and/or family, time spent discussing patient with consultants and colleagues, time spent reviewing pertinent laboratory and radiographic evaluations, time spent re-evaluating patient, or time spent discussing patient with nursing staff. All of the patient's and his family's questions were answered, and the plan of care going forward was outlined to them. SHELTON OSPINA MD 03/08/2020 11:26 AM Current inpatient medications: Current Facility-Administered Medications: ??? acetaminophen (TYLENOL) tablet 650 mg, 650 mg, Oral, 4 times per day, Shelton Ospina MD ??? albumin human 25 % solution 25 g, 25 g, Intravenous, Q6H, Shelton Ospina MD, 25 g at 03/08/20 0603 ??? albuterol sulfate HFA 108 (90 Base) MCG/ACT inhaler 2 puff, 2 puff, Inhalation, Q4H PRN, Isela Fitzpatrick MD, 2 puff at 03/06/20 0944 ??? aspirin chewable tablet 81 mg, 81 mg, Oral, Daily, Isela Fitzpatrick MD, 81 mg at 03/08/2050 ??? citalopram (CeleXA) tablet 20 mg, 20 mg, Oral, Daily, Shelton Ospina MD, 20 mg at 03/08/2050 ??? clonazePAM (klonoPIN) tablet 0.5 mg, 0.5 mg, Oral, BID, Shelton Ospina MD, 0.5 mg at 03/08/20 0950 ??? cyclobenzaprine (FLEXERIL) tablet 10 mg, 10 mg, Oral, 2 times per day, Shelton Ospina MD ??? dexamethasone (DECADRON) injection 6 mg, 6 mg, Intravenous, Q12H, Clarence Gil MD, 6 mg at 03/08/2050 ??? dexmedetomidine (PRECEDEX) 4 mcg/mL in sodium chloride 0.9 % 200 mL infusion, 0.1-1.4 mcg/kg/hr, Intravenous, Continuous, Shelton Ospina MD, Stopped at 03/07/20 1220 ??? famotidine (PEPCID) injection 20 mg, 20 mg, Intravenous, 2 times per day, 20 mg at 03/03/20 2114 OR famotidine (PEPCID) tablet 20 mg, 20 mg, Oral, 2 times per day, Isela Fitzpatrick MD, 20mg at 03/08/2050 ??? furosemide (LASIX) injection 80 mg, 80 mg, Intravenous, TID, Shelton Ospina MD, 80 mg at 03/08/20 0951 ??? gabapentin (NEURONTIN) capsule 300 mg, 300 mg, Oral, Nightly at bedtime, Clarence Gil MD, 300 mg at 03/07/202050 ??? guaiFENesin (ROBITUSSIN) 100 MG/5ML solution 5 mL, 5 mL, Oral, Q6H PRN, Isela Fitzpatrick MD ??? guaiFENesin ER (MUCINEX) 12 hr tablet 600 mg, 600 mg, Oral, BID, Clarence Gil MD, 600 mg at 03/08/20 0950 ??? heparin (porcine) injection 10,000 Units, 10,000 Units, Intravenous, PRN, Shelton Ospina MD, 10,000 Units at 09/02/20 0950 ??? heparin (porcine) injection 7,400 Units, 40 Units/kg, Intravenous, PRN, Shelton Ospina MD ??? heparin 25,000 units/250 mL infusion, 0-20 Units/kg/hr, Intravenous, Continuous, Shelton Ospina MD, Last Rate: 8.9 mL/hr at 03/07/202056, 4.8 Units/kg/hr at 03/07/202056 ??? LORazepam (ATIVAN) injection 0.5 mg, 0.5 mg, Intravenous, Q6H PRN, Jayda Patel, DO, 0.5 mg at03/07/202050 ??? melatonin tablet 5 mg, 5 mg, Oral, Nightly PRN, Clarence Gil MD, 5 mg at 03/04/202029 ??? naLOXone (NARCAN) injection 0.4 mg, 0.4 mg, Intravenous, PRN, Jayda Patel, DO ??? ondansetron (ZOFRAN) injection 4 mg, 4 mg, Intravenous, Q8H PRN, Isela Fitzpatrick MD, 4 mg at 03/02/20 1416 ??? oxybutynin (DITROPAN) tablet 10 mg, 10 mg, Oral, BID, Clarence Gil MD, 10 mg at 03/08/20 0950 ??? polyethylene glycol (GLYCOLAX) packet 17 g, 17 g, Oral, Daily PRN, Jayda Patel, DO ??? potassium chloride 40 mEq in SW 100 mL IVPB, 40 mEq, Intravenous, Once, Shelton Ospina MD ??? Senna (SENOKOT) 8.6 MG tablet 8.6 mg, 8.6 mg, Oral, Daily PRN, Isela Fitzpatrick MD ??? traMADol (ULTRAM) tablet 50 mg, 50 mg, Oral, Q6H PRN, Shelton Ospina MD Subjective: 12 point review of systems was completed and negative except findings reported above in ICU timeline and HPI. Objective: Body mass index is 69.96 kg/m??. Current vital signs Blood pressure 127/74, pulse 60, temperature 98.1 ??F (36.7 ??C), resp. rate 19, height 5' 4 (1.626 m), weight (!) 184.9 kg (407 lb 9.6 oz), SpO2 96 %. Vitals: 03/08/20 0700 BP: 127/74 Pulse: 60 Resp: 19 Temp: 98.1 ??F (36.7 ??C) SpO2: 96% 24 hour BP and temperature range @[id number]@ Temp (24hrs), Av.8 ??F (37.1 ??C), Min:97.5 ??F (36.4 ??C), Max:99.9 ??F (37.7 ??C) Input/Output 03/07 07 - 03/08 0659 In: 531.6 [I.V.:531.6] Out: 3925 [Urine:3925] Intake/Output Summary (Last 24 hours) at 03/08/2020 1126 Last data filed at 03/08/2020 0949 Gross per 24 hour Intake 531.56 ml Output 3950 ml Net -3418.44 ml Physical exam: ?? Gen: Patient alert and awake ?? Neuro: Moving all extremities, no deficit appreciated ?? Head: Atraumatic and normocephalic ?? Eyes: Pupils equal round and reactive, no jaundice ?? ENT: Moist mucous membrane ?? Neck: No JVD. No CVC ?? Cardiac: S1, S2, no added sounds ?? Pulm: Bilateral air entry, no wheezing or crackles ?? Abdomen: Soft and nontender, bowel sounds present ?? Skin: No rash or erythema ?? Extremities: No edema Data Review: Recent Labs 03/06/2030403/07/20 0500 03/08/20 0500 WBC 7.9 8.0 11.8* HGB 11.1* 12.4 12.0 HCT 33.8* 38.4 36.9 MCV 91.6 93.0 92.5 PLT 392* 338 406* RBC 3.69* 4.13 3.99* Recent Labs Lab 03/06/2030403/07/20 0500 03/08/20 0500 NA 138 137 136 K 3.4* 3.9 3.9 CL 102 99 99 CO2 31.2 31.5 31.1 AGAP 4.8* 6.5 5.9 BUN 15 19* 23* CR 0.70 0.79 0.73 GFRNON >90 85* >90 GFR >90 >90 >90 GLU 131* 139* 136* CA 8.4* 8.7 8.8 TP 7.2 7.7 8.1 ALB 3.1* 3.3* 4.1 TBIL 0.5 0.6 1.0 ALKP 52 54 51 AST 36 40* 42* ALT 64* 69* 76* Coagulation: Recent Labs 03/06/20 0305 03/07/20 0500 03/08/20 0500 INR 1.1 1.2* 1.1 No results for input(s): TROP, TROPIWB in the last 168 hours. ABG: No results found for: BASEEXCESS VBG: No components found for: PHMIXEDVEN, UJ7XFQVJQV, CES7IAZNSY, AXE6EYYST, WV6PEZM Lactic acid: No components found for: LACTATE Invalid input(s): CARDIACPROFILE Results for orders placed or performed during the hospital encounter of 02/29/20 ECG 12 lead Narrative [facility] [address] [place] [address] Test Date: 2020-03-03 Pat Name: ALTHEA ESCALONARY Department: Room: [facility] Gender: Female Scraper Burrer: KATIE : 1965 Requested By: JAYDA PATEL Order Number: [id number] Reading MD: Manish Solomon Measurements Intervals [place] Rate: 56 P: -45 TN: 159 QRS: -22 QRSD: 98 T: 18 QT: 447 QTc: 433 Interpretive Statements SINUS BRADYCARDIA BORDERLINE LEFT AXIS DEVIATION ECG 12 lead [facility] [address] [place] [address] Test Date: 2020-03-05 Pat Name: ALTHEA ROCHESTER Department: Room: [facility] Gender: Female Scraper Burrer: Abundio : 1965 Requested By: JAYDA PATEL Order Number: [id number] Reading MD: Larisa Velazquez Measurements Intervals [place] Rate: 64 P: -22 TN: 157 QRS: -20 QRSD: 102 T: 20 QT: 422 QTc: 438 Interpretive Statements SINUS RHYTHM MINIMAL VOLTAGE CRITERIA FOR LVH, CONSIDER NORMAL VARIANT # Portions of this chart may have been created with voice recognition software. Occasional wrong-word or ???sound-alike?? substitutions may have occurred due to the inherent limitations of voice recognition software. Read the chart carefully and recognize, using context, where these substitutions have occurred. # Part of the above documentation may contains notes/studies/informations copied forward from priornotes, all data reconfirmed and physical examination performed, plans were reconfirmed and new orders entered as needed on the day of this service. ------ SHELTON OSPINA MD 03/08/2020 11:26 AM * Zoe Gordillo RN - 03/08/2020 10:31 AM CDT LOS #8 Heparin precedex gtt Remains ICU status Will need PT/OT eval when able to participate * Shelton Ospina MD - 03/07/2020 5:04 PM CDT Critical Care Medicine [facility], [place], [place] [address] Pager: [phone] Daily Progress Note Reason for ICU admission: ARDS Moderate Principal Problem: ARDS , resp failure ICU Timeline: Hospital day: 7 ICU day: 4d 2h Assessment and Plan: Althea Kong is a 54-year-old female admitted 02/29/2020 with Severe COVID PNA ?? Obesity hypoventilation syndrome??on CPAP at night Anxiety / Depression HTN Anxiety disorder? PLAN: - On klonopin for anxiety , PRN ativan , consider low dose precdex in worsens - improved reps status with CPAP , on 4 L / NC , wean as tolerated , steroids , received C plasma and on remdesivir , antibiotics per ID , diuresis with lasix . Monitor inflammatory markers , CPAP atnight and with naps . Elevated Ddimer - full dose anticoagulation -c/w aguilar , electrolyte replacement protocol - heparin drip started with elevated d dimer . - ISS . DVT Prophylaxis: full dose anticoagulation with heparin Code Status: Full Code I participated in multidisciplinary rounds with RN, RT, pharmacist and ran the following checklist: Disposition: Continue ICU Status Critical Care time spent in evaluation and management of a critically ill or injured patient is 55 minutes, such that the critical illness or injury acutely impairs one or more organ system: resp ,cvs ,mortgage closer such that there is a high probability of imminent or life-threatening deterioration in the patient's condition needing immediate attention or presence of critical care physician near bedside for the above time . Complex decisions were made to manipulate and support multiple organ systems. The time listed is exclusive of any procedures which may have been performed. Critical care time includes time spent at bedside performing history and physical exam, time spent researching patient prior to interaction with patient, time spent discussing findings and treatment plan with patient and/or family, time spent discussing patient with consultants and colleagues, time spent reviewing pertinent laboratory and radiographic evaluations, time spent re-evaluating patient, or time spent discussing patient with nursing staff. All of the patient's and his family's questions were answered, and the plan of care going forward was outlined to them. SHLETON OSPINA MD 03/07/2020 5:04 PM Current inpatient medications: Current Facility-Administered Medications: ??? acetaminophen (TYLENOL) tablet 650 mg, 650 mg, Oral, Q6H PRN, Isela Fitzpatrick MD, 650 mg at 03/05/20 0837 ??? albuterol sulfate HFA 108 (90 Base) MCG/ACT inhaler 2 puff, 2 puff, Inhalation, Q4H PRN, Isela Fitzpatrick MD, 2 puff at 03/06/20 0944 ??? aspirin chewable tablet 81 mg, 81 mg, Oral, Daily, Isela Fitzpatrick MD, 81 mg at 03/07/20 0813 ??? citalopram (CeleXA) tablet 20 mg, 20 mg, Oral, Daily, Shelton Ospina MD, 20 mg at 03/07/20 08 ??? clonazePAM (klonoPIN) tablet 0.5 mg, 0.5 mg, Oral, BID, Shelton Ospina MD, 0.5 mg at 03/07/20811 ??? dexamethasone (DECADRON) injection 6 mg, 6 mg, Intravenous, Q12H, Clarence Gil MD, 6 mg at 03/07/20812 ??? dexmedetomidine (PRECEDEX) 4 mcg/mL in sodium chloride 0.9 % 200 mL infusion, 0.1-1.4 mcg/kg/hr, Intravenous, Continuous, Shelton Ospina MD, Stopped at 03/07/20 1220 ??? famotidine (PEPCID) injection 20 mg, 20 mg, Intravenous, 2 times per day, 20 mg at 03/03/204 OR famotidine (PEPCID) tablet 20 mg, 20 mg, Oral, 2 times per day, Isela Fitzpatrick MD, 20mg at 03/07/20811 ??? furosemide (LASIX) injection 80 mg, 80 mg, Intravenous, TID, Shelton Ospina MD, 80 mg at 03/07/20812 ??? gabapentin (NEURONTIN) capsule 300 mg, 300 mg, Oral, Nightly at bedtime, Clarence Gil MD, 300 mg at 03/06/203 ??? guaiFENesin (ROBITUSSIN) 100 MG/5ML solution 5 mL, 5 mL, Oral, Q6H PRN, Isela Fitzpatrick MD ??? guaiFENesin ER (MUCINEX) 12 hr tablet 600 mg, 600 mg, Oral, BID, Clarence Gil MD, 600 mg at 03/07/20 0812 ??? heparin (porcine) injection 10,000 Units, 10,000 Units, Intravenous, PRN, Shelton Ospina MD ??? heparin (porcine) injection 7,400 Units, 40 Units/kg, Intravenous, PRN, Shelton Ospina MD ??? heparin 25,000 units/250 mL infusion, 0-20 Units/kg/hr, Intravenous, Continuous, Shelton Ospina MD, Last Rate: 14.4 mL/hr at 03/07/20 0900, 7.8 Units/kg/hr at 03/07/20 0900 ??? LORazepam (ATIVAN) injection 0.5 mg, 0.5 mg, Intravenous, Q6H PRN, Jayda Patel, DO, 0.5 mg at03/06/20 1651 ??? melatonin tablet 5 mg, 5 mg, Oral, Nightly PRN, Clarence Gil MD, 5 mg at 03/04/20 2030 ??? naLOXone (NARCAN) injection 0.4 mg, 0.4 mg, Intravenous, PRN, Jayda Patel DO ??? ondansetron (ZOFRAN) injection 4 mg, 4 mg, Intravenous, Q8H PRN, Isela Fitzpatrick MD, 4 mg at 03/02/20 1416 ??? oxybutynin (DITROPAN) tablet 10 mg, 10 mg, Oral, BID, Clarence Gil MD, 10 mg at 03/07/20 0812 ??? polyethylene glycol (GLYCOLAX) packet 17 g, 17 g, Oral, Daily PRN, Jayda Patel DO ??? potassium chloride 40 mEq in SW 100 mL IVPB, 40 mEq, Intravenous, Once, Shelton Ospina MD ??? Senna (SENOKOT) 8.6 MG tablet 8.6 mg, 8.6 mg, Oral, Daily PRN, Isela Fitzpatrick MD Subjective: 12 point review of systems was completed and negative except findings reported above in ICU timeline and HPI. Objective: Body mass index is 69.96 kg/m??. Current vital signs Blood pressure 123/86, pulse 58, temperature 97.5 ??F (36.4 ??C), resp. rate 20, height 5' 4 (1.626 m), weight (!) 184.9 kg (407 lb 9.6 oz), SpO2 96 %. Vitals: 03/07/20 1300 BP: 123/86 Pulse: 58 Resp: 20 Temp: 97.5 ??F (36.4 ??C) SpO2: 96% 24 hour BP and temperature range @[id number]@ Temp (24hrs), Av.6 ??F (37 ??C), Min:97.5 ??F (36.4 ??C), Max:99.9 ??F (37.7 ??C) Input/Output 03/06 1500 - 03/07 1459 In: - Out: 5425 [Urine:5425] Intake/Output Summary (Last 24 hours) at 03/07/2020 1704 Last data filed at 03/07/2020 1600 Gross per 24 hour Intake -- Output 4875 ml Net -4875 ml Physical exam: ?? Gen: Patient alert and awake, anxious ?? Neuro: Moving all extremities, no deficit appreciated ?? Head: Atraumatic and normocephalic ?? Eyes: Pupils equal round and reactive, no jaundice ?? ENT: Moist mucous membrane ?? Neck: No JVD. No CVC ?? Cardiac: S1, S2, no added sounds ?? Pulm: coarse breath sounds b/l ?? Abdomen: Soft and nontender, bowel sounds present ?? Skin: No rash or erythema Extremities: 1+ edema Data Review: Recent Labs 03/05/20 0500 03/06/20 0305 03/07/20 0500 WBC 6.1 7.9 8.0 HGB 9.9* 11.1* 12.4 HCT 30.8* 33.8* 38.4 MCV 93.9 91.6 93.0 PLT 333 392* 338 RBC 3.28* 3.69* 4.13 Recent Labs Lab 03/05/20 0500 03/06/20 0305 03/07/20 0500 NA 140 138 137 K 3.5 3.4* 3.9 CL 104 102 99 CO2 29.5 31.2 31.5 AGAP 6.5 4.8* 6.5 BUN 15 15 19* CR 0.63 0.70 0.79 GFRNON >90 >90 85* GFR >90 >90 >90 GLU 144* 131* 139* CA 8.3* 8.4* 8.7 TP 6.9 7.2 7.7 ALB 2.9* 3.1* 3.3* TBIL 0.4 0.5 0.6 ALKP 52 52 54 AST 36 36 40* ALT 61* 64* 69* Coagulation: Recent Labs 03/05/20 0500 03/06/20 0305 03/07/20 0500 INR 1.1 1.1 1.2* No results for input(s): TROP, TROPIWB in the last 168 hours. ABG: No results found for: BASEEXCESS VBG: No components found for: PHMIXEDVEN, CK2JZOAOAA, NTV6NZDKVS, ILC7HYHCM, RK7XXJW Lactic acid: No components found for: LACTATE Invalid input(s): CARDIACPROFILE Results for orders placed or performed during the hospital encounter of 02/29/20 ECG [place] [address] Test Date: 2020-03-03 Pat Name: ALTHEA ROCHESTER Department: Room: [facility] Gender: Female Scraper Burrer: KATIE : 1965 Requested By: JAYDA PATEL Order Number: [id number] Reading MD: Manish Solomon Measurements Intervals [place] Rate: 56 P: -45 TN: 159 QRS: -22 QRSD: 98 T: 18 QT: 447 QTc: 433 Interpretive Statements SINUS BRADYCARDIA BORDERLINE LEFT AXIS DEVIATION ECG 12 lead Narrative [place] [id number] Test Date: 2020-03-05 Pat Name: [facility] Department: Room: [facility] Gender: Female Scraper Burrer: Cl : 1965 Requested By: JAYDA PATEL Order Number: [id number] Reading MD: Larisa Velazquez Measurements Intervals [place] Rate: 64 P: -22 TN: 157 QRS: -20 QRSD: 102 T: 20 QT: 422 QTc: 438 Interpretive Statements SINUS RHYTHM MINIMAL VOLTAGE CRITERIA FOR LVH, CONSIDER NORMAL VARIANT # Portions of this chart may have been created with voice recognition software. Occasional wrong-word or ???sound-alike?? substitutions may have occurred due to the inherent limitations of voice recognition software. Read the chart carefully and recognize, using context, where these substitutions have occurred. # Part of the above documentation may contains notes/studies/informations copied forward from priornotes, all data reconfirmed and physical examination performed, plans were reconfirmed and new orders entered as needed on the day of this service. ------ SHELTON OSPINA MD 03/07/2020 5:04 PM * Shelton Ospina MD - 03/06/2020 2:47 PM CDT Critical Care Medicine [facility], [place], [place] [address] Pager: [phone] Daily Progress Note Reason for ICU admission: resp failure , COVID PNA Principal Problem: <principal problem not specified> ICU Timeline: Hospital day: 6 ICU day: 3d Assessment and Plan: Althea Kong is a 54-year-old female admitted 02/29/2020 with Severe COVID PNA Obesity hypoventilation syndrome on CPAP at night Anxiety / Depression HTN Anxiety disorder ?? PLAN: ?? - Added klonopin for anxiety , PRN ativan , consider low dose precdex in worsens - improved reps status with CPAP , on 4 L / NC , wean as tolerated , steroids , received C plasma and on remdesivir , antibiotics per ID , diuresis with lasix . Monitor inflammatory markers , CPAP atnight and with naps . -c/w aguilar , electrolyte replacement protocol - heparin drip started with elevated d dimer . - ISS . PLAN: DVT Prophylaxis: Code Status: Full Code I participated in multidisciplinary rounds with RN, RT, pharmacist and ran the following checklist: Disposition: Continue ICU Status Critical Care time spent in evaluation and management of a critically ill or injured patient is 57 minutes, such that the critical illness or injury acutely impairs one or more organ system: reps ,cvs ,mortgage closer such that there is a high probability of imminent or life-threatening deterioration in the patient's condition needing immediate attention or presence of critical care physician near bedside for the above time . Complex decisions were made to manipulate and support multiple organ systems. The time listed is exclusive of any procedures which may have been performed. Critical care time includes time spent at bedside performing history and physical exam, time spent researching patient prior to interaction with patient, time spent discussing findings and treatment plan with patient and/or family, time spent discussing patient with consultants and colleagues, time spent reviewing pertinent laboratory and radiographic evaluations, time spent re-evaluating patient, or time spent discussing patient with nursing staff. All of the patient's and his family's questions were answered, and the plan of care going forward was outlined to them. SHELTON OSPINA MD 03/06/2020 2:47 PM Current inpatient medications: Current Facility-Administered Medications: ??? acetaminophen (TYLENOL) tablet 650 mg, 650 mg, Oral, Q6H PRN, Isela Fitzpatrick MD, 650 mg at 03/05/20 0837 ??? albuterol sulfate HFA 108 (90 Base) MCG/ACT inhaler 2 puff, 2 puff, Inhalation, Q4H PRN, Isela Fitzpatrick MD, 2 puff at 03/06/20 0944 ??? aspirin chewable tablet 81 mg, 81 mg, Oral, Daily, Isela Fitzpatrick MD, 81 mg at 03/06/20 0940 ??? [START ON 03/07/2020] citalopram (CeleXA) tablet 20 mg, 20 mg, Oral, Daily, Shelton Ospina MD ??? clonazePAM (klonoPIN) tablet 0.5 mg, 0.5 mg, Oral, BID, Shelton Ospina MD ??? dexamethasone (DECADRON) injection 6 mg, 6 mg, Intravenous, Q12H, Clarence Gil MD, 6 mg at 03/06/20 0940 ??? famotidine (PEPCID) injection 20 mg, 20 mg, Intravenous, 2 times per day, 20 mg at 03/03/204 OR famotidine (PEPCID) tablet 20 mg, 20 mg, Oral, 2 times per day, Isela Fitzpatrick MD, 20mg at 03/06/20 0940 ??? furosemide (LASIX) injection 80 mg, 80 mg, Intravenous, TID, Shelton Ospina MD ??? gabapentin (NEURONTIN) capsule 300 mg, 300 mg, Oral, Nightly at bedtime, Clarence Gil MD, 300 mg at 03/05/20 2200 ??? guaiFENesin (ROBITUSSIN) 100 MG/5ML solution 5 mL, 5 mL, Oral, Q6H PRN, Isela Fitzpatrick MD ??? guaiFENesin ER (MUCINEX) 12 hr tablet 600 mg, 600 mg, Oral, BID, Clarence Gil MD, 600 mg at 03/06/20 0940 ??? heparin (porcine) injection 10,000 Units, 10,000 Units, Intravenous, PRN, Shelton Ospina MD ??? heparin (porcine) injection 7,400 Units, 40 Units/kg, Intravenous, PRN, Shelton Ospina MD ??? heparin 25,000 units/250 mL infusion, 0-20 Units/kg/hr, Intravenous, Continuous, Shelton Ospina MD ??? LORazepam (ATIVAN) injection 0.5 mg, 0.5 mg, Intravenous, Q6H PRN, Jayda Patel DO, 0.5 mg at03/05/20 2252 ??? melatonin tablet 5 mg, 5 mg, Oral, Nightly PRN, Clarence Gil MD, 5 mg at 03/04/20 2030 ??? naLOXone (NARCAN) injection 0.4 mg, 0.4 mg, Intravenous, PRN, Jayda Patel, DO ??? ondansetron (ZOFRAN) injection 4 mg, 4 mg, Intravenous, Q8H PRN, Isela Fitzpatrick MD, 4 mg at 03/02/20 1416 ??? oxybutynin (DITROPAN) tablet 10 mg, 10 mg, Oral, BID, Clarence Gil MD, 10 mg at 03/06/20 0940 ??? polyethylene glycol (GLYCOLAX) packet 17 g, 17 g, Oral, Daily PRN, Jayda Patel, DO ??? potassium chloride 40 mEq in SW 100 mL IVPB, 40 mEq, Intravenous, Once, Shelton Opsina MD ??? potassium chloride 40 mEq in SW 100 mL IVPB, 40 mEq, Intravenous, Once, Shelton Ospina MD ??? Senna (SENOKOT) 8.6 MG tablet 8.6 mg, 8.6 mg, Oral, Daily PRN, Isela Fitzpatrick MD Subjective: 12 point review of systems was completed and negative except findings reported above in ICU timeline and HPI. Objective: Body mass index is 69.96 kg/m??. Current vital signs Blood pressure 137/90, pulse 60, temperature 99.7 ??F (37.6 ??C), resp. rate 30, height 5' 4 (1.626 m), weight (!) 184.9 kg (407 lb 9.6 oz), SpO2 98 %. Vitals: 03/06/20 1209 BP: Pulse: Resp: Temp: SpO2: 98% 24 hour BP and temperature range @[id number]@ Temp (24hrs), Av.4 ??F (37.4 ??C), Min:99.1 ??F (37.3 ??C), Max:99.7 ??F (37.6 ??C) Input/Output 03/05 0700 - 03/06 0659 In: - Out: 2650 [Urine:2650] Intake/Output Summary (Last 24 hours) at 03/06/2020 1447 Last data filed at 03/06/2020 0948 Gross per 24 hour Intake -- Output 1475 ml Net -1475 ml Physical exam: ?? Gen: Patient alert and awake ?? Neuro: Moving all extremities, no deficit appreciated ?? Head: Atraumatic and normocephalic ?? Eyes: Pupils equal round and reactive, no jaundice ?? ENT: Moist mucous membrane ?? Neck: No JVD. No CVC ?? Cardiac: S1, S2, no added sounds ?? Pulm: Bilateral air entry, no wheezing or crackles ?? Abdomen: Soft and nontender, bowel sounds present ?? Skin: No rash or erythema ?? Extremities: No edema Data Review: Recent Labs 03/04/20 0400 03/05/20 0500 03/06/20 0305 WBC 6.3 6.1 7.9 HGB 10.0* 9.9* 11.1* HCT 30.7* 30.8* 33.8* MCV 93.3 93.9 91.6 PLT 324 333 392* RBC 3.29* 3.28* 3.69* Recent Labs Lab 03/04/20 04003/05/20 0500 03/06/20 0305 NA 139 140 138 K 3.2* 3.5 3.4* CL 105 104 102 CO2 29.5 29.5 31.2 AGAP 4.5* 6.5 4.8* BUN 15 15 15 CR 0.52* 0.63 0.70 GFRNON >90 >90 >90 GFR >90 >90 >90 GLU 125* 144* 131* CA 8.4* 8.3* 8.4* TP 6.9 6.9 7.2 ALB 2.9* 2.9* 3.1* TBIL 0.4 0.4 0.5 ALKP 54 52 52 AST 42* 36 36 ALT 56 61* 64* Coagulation: Recent Labs 03/04/20 0400 03/05/20 0500 03/06/20 0305 INR 1.1 1.1 1.1 Recent Labs Lab 02/29/20 1120 TROP <0.017 ABG: No results found for: BASEEXCESS VBG: No components found for: PHMIXEDVEN, [id number], KEO8YIQZVB, PQT9TMYCC, BE6AZWL Lactic acid: No components found for: LACTATE Invalid input(s): CARDIACPROFILE Results for orders placed or performed during the hospital encounter of 02/29/20 ECG 12 lead Narrative [facility] [address] [place] [address] Test Date: 2020-03-03 Pat Name: ALTHEA KONG Department: Room: [facility] Gender: Female Scraper Burrer: KATIE : 1965 Requested By: JAYDA PATEL Order Number: [id number] Reading MD: Manish Solomon Measurements Intervals [place] Rate: 56 P: -45 TN: 159 QRS: -22 QRSD: 98 T: 18 QT: 447 QTc: 433 Interpretive Statements SINUS BRADYCARDIA BORDERLINE LEFT AXIS DEVIATION ECG 12 lead Narrative [facility] [address] [place] [address] Test Date: 2020-03-05 Pat Name: ALTHEA KONG Department: Room: [facility] Gender: Female Scraper Burrer: Abundio : 1965 Requested By: JAYDA PATEL Order Number: [id number] Reading MD: Measurements Intervals [place] Rate: 64 P: -22 TN: 157 QRS: -20 QRSD: 102 T: 20 QT: 422 QTc: 438 Interpretive Statements SINUS RHYTHM MINIMAL VOLTAGE CRITERIA FOR LVH, CONSIDER NORMAL VARIANT # Portions of this chart may have been created with voice recognition software. Occasional wrong-word or ???sound-alike?? substitutions may have occurred due to the inherent limitations of voice recognition software. Read the chart carefully and recognize, using context, where these substitutions have occurred. # Part of the above documentation may contains notes/studies/informations copied forward from priornotes, all data reconfirmed and physical examination performed, plans were reconfirmed and new orders entered as needed on the day of this service. ------ SHELTON OSPINA MD 03/06/2020 2:47 PM * Zoe Gordillo RN - 03/06/2020 2:05 PM CDT LOS #6 Weaned to NC, uses CPAP at home Currently ICU status, possible downgrade if remains stable Will continue to follow. * Magda Estes MD - 03/06/2020 11:10 AM CDT ASSESSMENT: Althea Kong is an 54-year-old female with a PMH of hypertension, obesity, MART on CPAP, anxiety and depression who is admitted to the hospital with COVID- 19 pneumonia. ?? #COVID-19 pneumonia. ? Infectious work-up: ?? Respiratory PCR (02/29/2020): Positive for SARS-CoV-2. ?? Blood culture (02/29/2020): No growth so far. ?? Sputum culture (03/01/2020): GNR's, alpha Streptococcus and Micrococcus. ? Imaging: ?? Chest x-ray (02/29/2020): Bilateral pulmonary infiltrates. ?? CTA chest (03/03/2020): In process. ?PLAN/ RECOMMENDATIONS: ? Discontinue azithromycin 500 mg every 24 hours and ceftriaxone 2 g IV every 24 hours. ?? Continue dexamethasone per primary. ?? Discontinue remdesivir 100 mg IV every 24 hours. ?? Continue to monitor oxygen status and inflammatory markers including CRP, LDH, ferritin, d-dimeretc. ?? Thank you for consulting LOI ID, we will now sign off on this patient. Please do not hesitate to call us if you have any additional questions or concerns. Patient discussed with resident, medical record and pertinent laboratory and radiographic studies independently reviewed, agree with the above. Subjective/Interval Events: Unable to obtain subjective due to limit COVID-19 exposure. Chart reviewed this AM. Continues to remain stable, satting appropriately on 4L NC in the upper 90s. Vitals sign stable. CRP downtrending from 0.33 to 0.29. D dimer [place] 459[address] to 1395. Patient Active Problem List Diagnosis Date Noted ??? Respiratory failure (CMS/HCC) 02/29/2020 ??? Elevated CO2 level 11/23/2019 Past Medical History: Diagnosis Date ??? Allergies ??? Anxiety ??? Depression ??? Hypertension ??? Neuropathy ??? Obesity ??? Sleep apnea ??? Urinary bladder incontinence No Known Allergies Althea's height is 5' 4 (1.626 m) and weight is 184.9 kg (407 lb 9.6 oz) (abnormal). Her temperature is 99.7 ??F (37.6 ??C). Her blood pressure is 137/90 and her pulse is 60. Her respiration is 30 and oxygen saturation is 98%. Objective Unable to perform physical exam due to limit COVID-19 exposure. Samantha Byers MD 03/06/2020 * Naomi Pelayo RN - 03/05/2020 5:10 PM CDT Problem: Infection/Colonization Infection/Isolation Goal: Absence of infection signs and symptoms Infection/Isolation Outcome: Progressing Problem: Infection - Risk of, Urinary Catheter-Associated Urinary Tract Infection Goal: Absence of infection signs and symptoms Outcome: Progressing * Jayda Patel DO - 03/05/2020 4:39 PM CDT Images from the original note were not included. Critical Care Medicine [facility], [place], [place] [address] Pager: [phone] Progress Note Reason for ICU admission: Worsening respiratory failure Reason for consult: Hypoxemia Consulting MD: Jeffery Principal Problem: <principal problem not specified> HPI: History is obtained from patient and chart History is limited due to intermittent respiratory distress Althea Kong is a 54-year-old female admitted 02/29/2020 with shortness of breath, found to have acute hypoxemic respiratory failure due to cold with pneumonia Patient was transferred to ICU due to increasing oxygen requirements with work of breathing 03/04: Weaned down to 4 L NC with intermittent episodes of desats into 88% spo2 03/05: Continues to desat while sleeping at night, unable to have home CPAP as family unable to bring it. Assessment and Plan: Althea Kong is a 54-year-old female with past medical history of morbid obesity, obesity hypoventilation syndrome, anxiety/depression, hypertension, admitted 02/29/2020 with acute hypoxemic respiratory failure, COVID pneumonia, hypokalemia and cytokines storm PLAN: Hospital day: 5 ICU day: 2d 2h Neuro: ? -Per protocol neuro assessment -Use benzodiazepine at home dose -Monitor for ICU acquired delirium -Continue home antidepressant and antianxiety medication ? CV: ? -Maintain MAP above 65 -Diurese as needed EP negative balance -Continue aspirin but hold all antihypertensives for now Lung: -Wean FiO2 to keep sats above 92% -Continue dexamethasone, IV antibiotics and remdesivir per ID -Follow inflammatory markers -Bronchodilators prn, pulmonary toilet, aspiration precautions -Heparin drip started given high D-Dimer ? GI: -Nutrition: Cardiac diet -Aspiration precautions ? Renal: ? -Strict i/o measurement, replete K, Phos and Mg as needed for hypokalemia, hypophosphatemia and hypomagnesemia -Target UOP >0.5-1ml/kg/hr -Aguilar Catheter as indicated ? ID: -Infectious disease managing antibiotics and remdesivir pending blood, sputum and urine cultures Heme: -Transfuse PRBC as needed to maintain a hemoglobin above 7 ? Endo: -Target BS below 180, insulin protocol as needed ? Msk/Skin: -Wound/Surgical Site checks daily. ? Misc: -Pain Control PRN, antiemetics prn -OOB to chair, PT/OT, ambulation if tolerated. -Pressure Ulcer prophylaxis DVT Prophylaxis: Heparin drip GI Prophylaxis: Home PPI Code Status: Full Code LINES and TUBES: PIVs ETT: No ? Disposition: Continue ICU status. Critical Care time spent in evaluation and management of a critically ill or injured patient is 48 minutes, such that the critical illness or injury acutely impairs one or more organ system: Cardiovascular, Neurologic, Renal, Pulmonary, Gastrointestinal, Endocrine, Infectious diseases such that there is a high probability of imminent or life-threatening deterioration in the patient's condition needing immediate attention or presence of critical care physician near bedside for the above time . The time listed is exclusive of any procedures which may have been performed. Critical care time includes time spent at bedside performing history and physical exam, time spent researching patient prior to interaction with patient, time spent discussing findings and treatment plan with patient and/or family, time spent discussing patient with consultants and colleagues, timespent reviewing pertinent laboratory and radiographic evaluations, time spent re- evaluating patient, or time spent discussing patient with nursing staff. All of the patient's and his family's questions were answered, and the plan of care going forward was outlined to them. JAYDA PATEL DO 03/05/2020 4:39 PM Current inpatient medications: Current Facility-Administered Medications: ??? acetaminophen (TYLENOL) tablet 650 mg, 650 mg, Oral, Q6H PRN, Isela Fitzpatrick MD, 650 mg at 03/05/20 0837 ??? albuterol sulfate HFA 108 (90 Base) MCG/ACT inhaler 2 puff, 2 puff, Inhalation, Q4H PRN, Isela Fitzpatrick MD, 2 puff at 03/05/20 0000 ??? aspirin chewable tablet 81 mg, 81 mg, Oral, Daily, Isela Fitzpatrick MD, 81 mg at 03/05/20 0839 ??? cefTRIAXone (ROCEPHIN) 2 g in sodium chloride 0.9 % 50 mL IVPB, 2 g, Intravenous, Q24H, Judith Clements MD, Stopped at 03/04/20 2313 ??? citalopram (CeleXA) tablet 10 mg, 10 mg, Oral, Daily, Clarence Gil MD, 10 mg at 03/05/20 0838 ??? dexamethasone (DECADRON) injection 6 mg, 6 mg, Intravenous, Q12H, Clarence Gil MD, 6 mg at 03/05/20 0839 ??? famotidine (PEPCID) injection 20 mg, 20 mg, Intravenous, 2 times per day, 20 mg at 03/03/204 OR famotidine (PEPCID) tablet 20 mg, 20 mg, Oral, 2 times per day, Isela Fitzpatrick MD, 20mg at 03/05/20 0838 ??? furosemide (LASIX) injection 40 mg, 40 mg, Intravenous, BID, Jayda Patel DO, 40 mg at 03/05/20 0839 ??? gabapentin (NEURONTIN) capsule 300 mg, 300 mg, Oral, Nightly at bedtime, Clarence Gil MD, 300 mg at 03/04/20 2030 ??? guaiFENesin (ROBITUSSIN) 100 MG/5ML solution 5 mL, 5 mL, Oral, Q6H PRN, Isela Fitzpatrick MD ??? guaiFENesin ER (MUCINEX) 12 hr tablet 600 mg, 600 mg, Oral, BID, Clarence Gil MD, 600 mg at 03/05/20 0838 ??? heparin (porcine) injection 10,000 Units, 10,000 Units, Intravenous, PRN, Jayda Patel DO ??? heparin (porcine) injection 7,400 Units, 40 Units/kg, Intravenous, PRN, Jayda Patel DO, 7,400 Units at 03/05/20 0340 ??? heparin 25,000 units/250 mL infusion, 0-20 Units/kg/hr, Intravenous, Continuous, Jayda Patel DO, Last Rate: 23.7 mL/hr at 03/05/20 0339, 12.8 Units/kg/hr at 03/05/20 0339 ??? LORazepam (ATIVAN) injection 0.5 mg, 0.5 mg, Intravenous, Q6H PRN, Jayda Patel DO, 0.5 mg at03/05/20 0129 ??? melatonin tablet 5 mg, 5 mg, Oral, Nightly PRN, Clarence Gil MD, 5 mg at 03/04/20 2030 ??? naLOXone (NARCAN) injection 0.4 mg, 0.4 mg, Intravenous, PRN, Jayda Patel, DO ??? ondansetron (ZOFRAN) injection 4 mg, 4 mg, Intravenous, Q8H PRN, Isela Fitzpatrick MD, 4 mg at 03/02/20 1416 ??? oxybutynin (DITROPAN) tablet 10 mg, 10 mg, Oral, BID, Clarence Gil MD, 10 mg at 03/05/20 0838 ??? polyethylene glycol (GLYCOLAX) packet 17 g, 17 g, Oral, Daily PRN, Jayda Patel, DO ??? remdesivir 100 mg in sodium chloride 0.9 % 250 mL IVPB, 100 mg, Intravenous, Q24H, Clarence Gil MD, Stopped at 03/05/20 0512 ??? Senna (SENOKOT) 8.6 MG tablet 8.6 mg, 8.6 mg, Oral, Daily PRN, Isela Fitzpatrick MD ??? sodium chloride 0.9% bolus infusion SOLN 30 mL, 30 mL, Intravenous, See Admin Instructions, Judith Byers MD, Stopped at 03/02/20 0405 Subjective: 12 point review of systems was completed and negative except findings reported above in ICU timeline and HPI. Objective: Body mass index is 69.96 kg/m??. Current vital signs Blood pressure (!) 144/83, pulse 61, temperature 98.6 ??F (37 ??C), resp. rate 27, height 5' 4 (1.626 m), weight (!) 184.9 kg (407 lb 9.6 oz), SpO2 93 %. Vitals: 03/05/20 0700 BP: (!) 144/83 Pulse: 61 Resp: 27 Temp: 98.6 ??F (37 ??C) SpO2: 93% 24 hour BP and temperature range Filed Vitals: 03/05/20 0400 03/05/20 0500 03/05/20 0600 03/05/20 0700 BP: (!) 162/143 (!) 163/94 128/80 (!) 144/83 Pulse: 59 64 70 61 Resp: (!) 36 (!) 37 (!) 35 27 Temp: 98.4 ??F (36.9 ??C) 98.6 ??F (37 ??C) 98.6 ??F (37 ??C) 98.6 ??F (37 ??C) TempSrc: Bladder SpO2: 96% 94% (!) 88% 93% Weight: Height: Temp (24hrs), Av ??F (37.2 ??C), Min:98.4 ??F (36.9 ??C), Max:100 ??F (37.8 ??C) Input/Output 03/04 1500 - 03/05 1459 In: 35 [I.V.:35] Out: 4815 [Urine:4815] Intake/Output Summary (Last 24 hours) at 03/05/2020 1639 Last data filed at 03/05/2020 1330 Gross per 24 hour Intake 35 ml Output 3015 ml Net -2980 ml Physical exam: General: Alert oriented ??3, mild distress with intermittent accessory muscle use, morbidly obese Neck: Supple, no JVD Head ear nose and throat: Moist oral mucosa, no pharyngeal erythema Pupils: Equal and reactive to light, no jaundice is appreciated Skin: Warm and no significant rashes seen Cardiovascular: Regular rate and rhythm, no murmur rubs or gallops. Lungs: Decreased breath sounds bilaterally. Abdomen: Soft, nontender non distended, bowel sounds are normal in all 4 quadrants Extremities: Minimal bilateral lower extremity edema Neurological: Patient is able to move all 4 extremities antigravity by herself. Data Review: Recent Labs 03/03/20 1250 03/04/20 0400 03/05/20 0500 WBC 6.1 6.3 6.1 HGB 10.7* 10.0* 9.9* HCT 32.7* 30.7* 30.8* MCV 91.9 93.3 93.9 PLT 337 324 333 RBC 3.56* 3.29* 3.28* Recent Labs Lab 03/03/20 0904 03/04/20 0400 03/05/20 0500 NA 139 139 140 K 3.8 3.2* 3.5 CL 109* 105 104 CO2 23.1 29.5 29.5 AGAP 6.9 4.5* 6.5 BUN 10 15 15 CR 0.41* 0.52* 0.63 GFRNON >90 >90 >90 GFR >90 >90 >90 GLU 121* 125* 144* CA 7.6* 8.4* 8.3* TP 6.2* 6.9 6.9 ALB 2.6* 2.9* 2.9* TBIL 0.4 0.4 0.4 ALKP 49 54 52 AST 44* 42* 36 ALT 52 56 61* Coagulation: Recent Labs 03/04/20 0400 03/05/20 0500 INR 1.1 1.1 Troponins: Recent Labs Lab 02/29/20 1120 TROP <0.017 ABG: No results found for: BASEEXCESS VBG: No components found for: PHMIXEDVEN, XX6OUDEHSO, ZNS3UASOHI, VYJ2ATMLV, GW2UHTU Lactic acid: No components found for: LACTATE EKG: Results for orders placed or performed during the hospital encounter of 02/29/20 ECG 12 lead Narrative [facility] [address] [place] [address] Test Date: 2020-03-03 Pat Name: ALTHEA KONG Department: Room: [facility] Gender: Female Scraper Burrer: KATIE : 1965 Requested By: JAYDA PATEL Order Number: [id number] Reading MD: Manish Solomon Measurements Intervals [place] Rate: 56 P: -45 TN: 159 QRS: -22 QRSD: 98 T: 18 QT: 447 QTc: 433 Interpretive Statements SINUS BRADYCARDIA BORDERLINE LEFT AXIS DEVIATION ECG 12 lead Narrative [facility] [address] [place] [id number] Test Date: 2020-03-05 Pat Name: ALTHEA TO Department: Room: [facility] Gender: Female Scraper Burrer: Abundio : 1965 Requested By: JAYDA PATEL Order Number: [id number] Reading MD: Measurements Intervals [place] Rate: 64 P: -22 TN: 157 QRS: -20 QRSD: 102 T: 20 QT: 422 QTc: 438 Interpretive Statements SINUS RHYTHM MINIMAL VOLTAGE CRITERIA FOR LVH, CONSIDER NORMAL VARIANT ECHO: Pending Microbiology: No results found for this or any previous visit. Results for orders placed or performed during the hospital encounter of 02/29/20 (from the past 168hour(s)) CULTURE, BACTERIA, BLOOD Collection Time: 02/29/20 8:30 PM Result Value Ref Range Spec. Description BLOOD Special Requests: NO SPECIAL REQUEST Culture Result: NO GROWTH 4 DAYS and No results found for this visit on 02/29/20 (from the past 168 hour(s)). Microbiology Results (last 14 days) Procedure Component Value Units Date/Time CULTURE RESPIRATORY W/ GRAM STAIN [[id number]] Collected: 03/01/20 1400 Order Status: Completed Lab Status: Final result Updated: 03/03/20 1219 Specimen: SPUTUM, EXPECTORATED Spec. Description SPUTUM, EXPECTORATED Special Requests: NO SPECIAL REQUEST Gram Stain Result 10-25 NEUTROPHILS PER LPF Gram Stain Result <10 EPITHELIAL CELLS PER LPF Gram Stain Result -- MANY GRAM NEGATIVE RODS Gram Stain Result -- FEW GRAM POSITIVE COCCI IN PAIRS Culture Result: -- MODERATE ALPHA STREPTOCOCCUS Culture Result: -- FEW MICROCOCCUS SPECIES Culture Result: NORMAL RESPIRATORY VINAY PRESENT CULTURE, BACTERIA, BLOOD [[id number]] Collected: 02/29/20 2030 Order Status: Completed Lab Status: Preliminary result Updated: 03/04/20 2349 Specimen: BLOOD Spec. Description BLOOD Special Requests: NO SPECIAL REQUEST Culture Result: NO GROWTH 4 DAYS BIOFIRE PCR UPPER RESPIRATORY PROFILE (RESPIRATORY PCR PANEL 2) [[id number]] (Abnormal) Collected: 02/29/20 1628 Order Status: Completed Lab Status: Final result Updated: 02/29/20 1759 Specimen: NASOPHARYNX Adenovirus PCR: NOT DETECTED Coronavirus 229E PCR: NOT DETECTED Coronavirus HKU1 PCR: NOT DETECTED Coronavirus NL63 PCR: NOT DETECTED Coronavirus OC43 PCR: NOT DETECTED Metapneumovirus PCR: NOT DETECTED Rhinovirus/Enterovirus PCR: NOT DETECTED Influenza A PCR: NOT DETECTED Influenza B PCR: NOT DETECTED Parainfluenza 1 PCR: NOT DETECTED Parainfluenza 2 PCR: NOT DETECTED Parainfluenza 3 PCR: NOT DETECTED Parainfluenza 4 PCR: NOT DETECTED RSV PCR: NOT DETECTED B PARAPERTUSIS PCR NOT DETECTED Bordtella Pertussis PCR: NOT DETECTED CHLAMYDOPHILA PNEUMONIAE PCR NOT DETECTED Mycoplasma Pneumoniae PCR: NOT DETECTED Coronavirus SARS CoV 2 PCR DETECTED Comment: RESULTS PHONED TO AND READ BACK BY: Jacquelin PEREZLIFE SCIENCES INSTRUCTOR @1929 02/29/20 [place] THE SARS-CoV-2 TEST HAS BEEN AUTHORIZED BY THE FDA UNDER AN EUA FOR USE BY AUTHORIZED LABORATORIES. CULTURE, BACTERIA, BLOOD [[id number]] Collected: 02/29/20 1626 Order Status: Canceled Lab Status: No result Specimen: BLOOD CULTURE, BACTERIA, BLOOD [[id number]] Collected: 02/29/20 1120 Order Status: Completed Lab Status: Final result Updated: 03/05/20 1223 Specimen: BLOOD Spec. Description BLOOD Special Requests: NO SPECIAL REQUEST Culture Result: NO GROWTH 5 DAYS CULTURE, BACTERIA, BLOOD [[id number]] Collected: 02/29/20 1120 Order Status: Completed Lab Status: Final result Updated: 03/05/20 1223 Specimen: BLOOD Spec. Description BLOOD Special Requests: NO SPECIAL REQUEST Culture Result: NO GROWTH 5 DAYS Radiology: Imaging: Ir Picc Plc Greater 5yr Result Date: 03/02/2020 PROCEDURE: Left upper extremity double lumen peripherally inserted central venous catheter (PICC). DATE : 03/02/2020 2:34 PM INDICATION: IV antibiotics needed. PHYSICIANS: Sandi Andersen M.D., Efrain Marc PA-C MEDICATIONS: Local lidocaine anesthesia only. FLUOROSCOPY TIME: 0.25 minutes and 1 flu oroscopic image sent to PACS. TECHNIQUE AND FINDINGS: The patient was brought to the fluoroscopy suite, placed in the supine position, and a timeout was performed. The patient's Left upper extremity was then sterilely prepped and draped. Maximal sterile barrier techniques were utilized throughout the procedure; including hand cleaning with alcohol based hand rub. Sterile ultrasound barrier techniques were utilized throughout the procedure. Ultrasound evaluation of potential access sites was performed. Following local anesthesia with 1% lidocaine, a 21 gauge needle was used to puncture the patent brachial vein several centimeters above the antecubital fossa under ultrasound guidance, with image saved for the permanent record. An 0.018 inch wire was advanced through the needle into the central veins, as confirmed fluoroscopically. The needle was then exchanged over the wire for a peel-away sheath. A 4 [place]ij[place] double lumen PICC was cut to an appropriate length of 52 cm and advanced through the peel-away sheath. The wire and peel-away sheath were removed. The tip of the PICC tip was located at the cavoatrial junction on final recorded fluoroscopic image. The PICC aspirated and flushed well and was flushed with heparinized saline. The catheter was secured to the skin at the exit site and a sterile dressing was applied. The patient appeared to tolerate the procedure well. IMPRESSION: Placement of a Left upper extremity 4 [place] double lumen peripherally inserted centralvenous catheter, as detail above. PLAN: The catheter is ready for immediate use. The attending radiologist, Dr. Andersen, was in the department for all critical portions of the procedure, has reviewed the images, and agrees with the content of this report. Dictated By: NACHO Conn on 03/02/2020 2:34 PM Interpreted By: NACHO Conn, 03/02/2020 2:34 PM Xr Chest Portable Result Date: 02/29/2020 02/29/2020, 1135 hours. HISTORY: Short of breath. Cough. Body aches and fever for one week. History of hypertension. EXAM: Erect portable AP chest. No comparison. FINDINGS: Patchy infiltrate or less likely congestion in the mid and lower lungs bilaterally. The heart size is upper normal. No central vascular distention. Slight blurring of the right diaphragm, cannot exclude tiny right pleural effusion. No evidence of left pleural effusion. No pneumothorax. IMPRESSION: Pulmonary opacities suggesting bilateral pulmonary infiltrates, less likely congestion. Interpreted By: Jed Poe MD, 02/29/2020 11:58 AM # Portions of this chart may have been created with voice recognition software. Occasional wrong-word or ???sound-alike?? substitutions may have occurred due to the inherent limitations of voice recognition software. Read the chart carefully and recognize, using context, where these substitutions have occurred. # Part of the above documentation may contains notes/studies/informations copied forward from priornotes, all data reconfirmed and physical examination performed, plans were reconfirmed and new orders entered as needed on the day of this service. JAYDA PATEL DO 03/05/2020 4:39 PM * Mine Krause RN - 03/05/2020 1:01 AM CDT Pt states she is not having any pain * Jayda Patel DO - 03/04/2020 5:04 PM CDT Images from the original note were not included. Critical Care Medicine [facility], [place], [place] [address] Pager: [phone] Progress Note Reason for ICU admission: Worsening respiratory failure Reason for consult: Hypoxemia Consulting MD: Jeffery Principal Problem: <principal problem not specified> HPI: History is obtained from patient and chart History is limited due to intermittent respiratory distress Althea Kong is a 54-year-old female admitted 02/29/2020 with shortness of breath, found to have acute hypoxemic respiratory failure due to cold with pneumonia Patient was transferred to ICU due to increasing oxygen requirements with work of breathing 03/04: Weaned down to 4 L NC with intermittent episodes of desats into 88% spo2 Assessment and Plan: Althea Kong is a 54-year-old female with past medical history of morbid obesity, obesity hypoventilation syndrome, anxiety/depression, hypertension, admitted 02/29/2020 with acute hypoxemic respiratory failure, COVID pneumonia, hypokalemia and cytokines storm PLAN: Hospital day: 4 ICU day: 1d 2h Neuro: ? -Per protocol neuro assessment -Use benzodiazepine at home dose -Monitor for ICU acquired delirium -Continue home antidepressant and antianxiety medication ? CV: ? -Maintain MAP above 65 -Diurese as needed EP negative balance -Continue aspirin but hold all antihypertensives for now Lung: -Wean FiO2 to keep sats above 92% -Continue dexamethasone, IV antibiotics and remdesivir per ID -Follow inflammatory markers -Bronchodilators prn, pulmonary toilet, aspiration precautions -Heparin drip started given high D-Dimer ? GI: -Nutrition: Cardiac diet -Aspiration precautions ? Renal: ? -Strict i/o measurement, replete K, Phos and Mg as needed for hypokalemia, hypophosphatemia and hypomagnesemia -Target UOP >0.5-1ml/kg/hr -Aguilar Catheter as indicated ? ID: -Infectious disease managing antibiotics and remdesivir pending blood, sputum and urine cultures -Patient received 1 dose of convalescent plasma today Heme: -Transfuse PRBC as needed to maintain a hemoglobin above 7 ? Endo: -Target BS below 180, insulin protocol as needed ? Msk/Skin: -Wound/Surgical Site checks daily. ? Misc: -Pain Control PRN, antiemetics prn -OOB to chair, PT/OT, ambulation if tolerated. -Pressure Ulcer prophylaxis DVT Prophylaxis: Heparin drip GI Prophylaxis: Home PPI Code Status: Full Code LINES and TUBES: PIVs ETT: No ? Disposition: Continue ICU status. Critical Care time spent in evaluation and management of a critically ill or injured patient is 51 minutes, such that the critical illness or injury acutely impairs one or more organ system: Cardiovascular, Neurologic, Renal, Pulmonary, Gastrointestinal, Endocrine, Infectious diseases such that there is a high probability of imminent or life-threatening deterioration in the patient's condition needing immediate attention or presence of critical care physician near bedside for the above time . The time listed is exclusive of any procedures which may have been performed. Critical care time includes time spent at bedside performing history and physical exam, time spent researching patient prior to interaction with patient, time spent discussing findings and treatment plan with patient and/or family, time spent discussing patient with consultants and colleagues, timespent reviewing pertinent laboratory and radiographic evaluations, time spent re- evaluating patient, or time spent discussing patient with nursing staff. All of the patient's and his family's questions were answered, and the plan of care going forward was outlined to them. JAYDA PATEL DO 03/04/2020 5:04 PM Current inpatient medications: Current Facility-Administered Medications: ??? acetaminophen (TYLENOL) tablet 650 mg, 650 mg, Oral, Q6H PRN, Isela Fitzpatrick MD, 650 mg at 03/02/20 1416 ??? albuterol sulfate HFA 108 (90 Base) MCG/ACT inhaler 2 puff, 2 puff, Inhalation, Q4H PRN, Isela Fitzpatrick MD ??? aspirin chewable tablet 81 mg, 81 mg, Oral, Daily, Isela Fitzpatrick MD, 81 mg at 03/04/20 0935 ??? azithromycin (ZITHROMAX) 500 mg in sodium chloride 0.9 % 250 mL IVPB, 500 mg, Intravenous, Q24H, Isela Fitzpatrick MD, Stopped at 03/03/206 ??? cefTRIAXone (ROCEPHIN) 2 g in sodium chloride 0.9 % 50 mL IVPB, 2 g, Intravenous, Q24H, Judith Clements MD, Stopped at 03/03/20 2219 ??? citalopram (CeleXA) tablet 10 mg, 10 mg, Oral, Daily, Clarence Gil MD, 10 mg at 03/04/2035 ??? dexamethasone (DECADRON) injection 6 mg, 6 mg, Intravenous, Q12H, Clarence Gil MD, 6 mg at 03/04/2042 ??? famotidine (PEPCID) injection 20 mg, 20 mg, Intravenous, 2 times per day, 20 mg at 03/03/202113 OR famotidine (PEPCID) tablet 20 mg, 20 mg, Oral, 2 times per day, Isela Fitzpatrick MD, 20mg at 03/04/2034 ??? furosemide (LASIX) injection 40 mg, 40 mg, Intravenous, BID, Jayda Patel DO, 40 mg at 03/04/20936 ??? gabapentin (NEURONTIN) capsule 300 mg, 300 mg, Oral, Nightly at bedtime, Clarence Gil MD, 300 mg at 03/03/202114 ??? guaiFENesin (ROBITUSSIN) 100 MG/5ML solution 5 mL, 5 mL, Oral, Q6H PRN, Isela Fitzpatrick MD ??? guaiFENesin ER (MUCINEX) 12 hr tablet 600 mg, 600 mg, Oral, BID, Clarence Gil MD, 600 mg at 03/04/20934 ??? heparin (porcine) injection 10,000 Units, 10,000 Units, Intravenous, PRN, Jayda Patel, DO ??? heparin (porcine) injection 7,400 Units, 40 Units/kg, Intravenous, PRN, Jayda Patel, DO ??? heparin 25,000 units/250 mL infusion, 0-20 Units/kg/hr, Intravenous, Continuous, Jayda Patel,DO ??? LORazepam (ATIVAN) injection 0.5 mg, 0.5 mg, Intravenous, Q6H PRN, Jayad Patel, DO, 0.5 mg at03/03/202111 ??? melatonin tablet 5 mg, 5 mg, Oral, Nightly PRN, Clarence Gil MD, 5 mg at 03/02/202055 ??? naLOXone (NARCAN) injection 0.4 mg, 0.4 mg, Intravenous, PRN, Jayda Patel, DO ??? ondansetron (ZOFRAN) injection 4 mg, 4 mg, Intravenous, Q8H PRN, Isela Fitzpatrick MD, 4 mg at 03/02/20 1416 ??? oxybutynin (DITROPAN) tablet 10 mg, 10 mg, Oral, BID, Clarence Gil MD, 10 mg at 03/04/20 0934 ??? polyethylene glycol (GLYCOLAX) packet 17 g, 17 g, Oral, Daily PRN, Jayda Patel, DO ??? remdesivir 100 mg in sodium chloride 0.9 % 250 mL IVPB, 100 mg, Intravenous, Q24H, Clarence Gil MD, Stopped at 03/04/20 0512 ??? Senna (SENOKOT) 8.6 MG tablet 8.6 mg, 8.6 mg, Oral, Daily PRN, Isela Fitzpatrick MD ??? sodium chloride 0.9% bolus infusion SOLN 30 mL, 30 mL, Intravenous, See Admin Instructions, Judith Byers MD, Stopped at 03/02/20 0405 Subjective: 12 point review of systems was completed and negative except findings reported above in ICU timeline and HPI. Objective: Body mass index is 69.96 kg/m??. Current vital signs Blood pressure 131/89, pulse 61, temperature 99 ??F (37.2 ??C), resp. rate 22, height 5' 4 (1.626 m), weight (!) 184.9 kg (407 lb 9.6 oz), SpO2 94 %. Vitals: 03/04/20 1101 BP: Pulse: Resp: Temp: SpO2: 94% 24 hour BP and temperature range Filed Vitals: 03/04/20 0800 03/04/20 1000 03/04/20 1100 03/04/20 1101 BP: (!) 141/91 140/89 131/89 Pulse: 64 66 61 Resp: 19 18 22 Temp: 99 ??F (37.2 ??C) 99 ??F (37.2 ??C) 99 ??F (37.2 ??C) TempSrc: SpO2: 96% (!) 89% 94% Weight: Height: Temp (24hrs), Av.1 ??F (37.3 ??C), Min:98.6 ??F (37 ??C), Max:99.9 ??F (37.7 ??C) Input/Output 03/03 1500 - 03/04 1459 In: 870.8 Out: 545 [Urine:545] Intake/Output Summary (Last 24 hours) at 03/04/2020 1704 Last data filed at 03/04/2020 0900 Gross per 24 hour Intake 870.83 ml Output 545 ml Net 325.83 ml Physical exam: General: Alert oriented ??3, mild distress with intermittent accessory muscle use, morbidly obese Neck: Supple, no JVD Head ear nose and throat: Moist oral mucosa, no pharyngeal erythema Pupils: Equal and reactive to light, no jaundice is appreciated Skin: Warm and no significant rashes seen Cardiovascular: Regular rate and rhythm, no murmur rubs or gallops. Lungs: Decreased breath sounds bilaterally. Abdomen: Soft, nontender non distended, bowel sounds are normal in all 4 quadrants Extremities: Minimal bilateral lower extremity edema Neurological: Patient is able to move all 4 extremities antigravity by herself. Data Review: Recent Labs 03/02/20 0350 03/03/20 1250 03/04/20 0400 WBC 4.4 6.1 6.3 HGB 10.5* 10.7* 10.0* HCT 32.0* 32.7* 30.7* MCV 92.5 91.9 93.3 PLT 238 337 324 RBC 3.46* 3.56* 3.29* Recent Labs Lab 03/02/20 0350 03/03/20 0904 03/04/20 0400 NA 138 139 139 K 3.1* 3.8 3.2* CL 103 109* 105 CO2 28.5 23.1 29.5 AGAP 6.5 6.9 4.5* BUN 5* 10 15 CR 0.49* 0.41* 0.52* GFRNON >90 >90 >90 GFR >90 >90 >90 GLU 148* 121* 125* CA 8.0* 7.6* 8.4* TP 7.2 6.2* 6.9 ALB 2.9* 2.6* 2.9* TBIL 0.5 0.4 0.4 ALKP 59 49 54 AST 50* 44* 42* ALT 62* 52 56 Coagulation: Recent Labs 03/04/20 0400 INR 1.1 Troponins: Recent Labs Lab 02/29/20 1120 TROP <0.017 ABG: No results found for: BASEEXCESS VBG: No components found for: PHMIXEDVEN, [id number], [id number], RNV9VMLIN, IX4OLPX Lactic acid: No components found for: LACTATE EKG: Results for orders placed or performed during the hospital encounter of 02/29/20 ECG 12 lead Narrative [address] [place] [address] Test Date: 2020-03-03 Pat Name: ALTHEA KONG Department: Room: [facility] Gender: Female Scraper Burrer: KATIE : 1965 Requested By: JAYDA PATEL Order Number: [id number] Reading MD: Manish Solomon Measurements Intervals [place] Rate: 56 P: -45 TN: 159 QRS: -22 QRSD: 98 T: 18 QT: 447 QTc: 433 Interpretive Statements SINUS BRADYCARDIA BORDERLINE LEFT AXIS DEVIATION ECHO: Pending Microbiology: No results found for this or any previous visit. Results for orders placed or performed during the hospital encounter of 02/29/20 (from the past 168hour(s)) CULTURE, BACTERIA, BLOOD Collection Time: 02/29/20 8:30 PM Result Value Ref Range Spec. Description BLOOD Special Requests: NO SPECIAL REQUEST Culture Result: NO GROWTH 3 DAYS and No results found for this visit on 02/29/20 (from the past 168 hour(s)). Microbiology Results (last 14 days) Procedure Component Value Units Date/Time CULTURE RESPIRATORY W/ GRAM STAIN [[id number]] Collected: 03/01/20 1400 Order Status: Completed Lab Status: Final result Updated: 03/03/20 1219 Specimen: SPUTUM, EXPECTORATED Spec. Description SPUTUM, EXPECTORATED Special Requests: NO SPECIAL REQUEST Gram Stain Result 10-25 NEUTROPHILS PER LPF Gram Stain Result <10 EPITHELIAL CELLS PER LPF Gram Stain Result -- MANY GRAM NEGATIVE RODS Gram Stain Result -- FEW GRAM POSITIVE COCCI IN PAIRS Culture Result: -- MODERATE ALPHA STREPTOCOCCUS Culture Result: -- FEW MICROCOCCUS SPECIES Culture Result: NORMAL RESPIRATORY VINAY PRESENT CULTURE, BACTERIA, BLOOD [[id number]] Collected: 02/29/20 2030 Order Status: Completed Lab Status: Preliminary result Updated: 03/03/20 235 Specimen: BLOOD Spec. Description BLOOD Special Requests: NO SPECIAL REQUEST Culture Result: NO GROWTH 3 DAYS BIOFIRE PCR UPPER RESPIRATORY PROFILE (RESPIRATORY PCR PANEL 2) [[id number]] (Abnormal) Collected: 02/29/20 1628 Order Status: Completed Lab Status: Final result Updated: 02/29/201758 Specimen: NASOPHARYNX Adenovirus PCR: NOT DETECTED Coronavirus 229E PCR: NOT DETECTED Coronavirus HKU1 PCR: NOT DETECTED Coronavirus NL63 PCR: NOT DETECTED Coronavirus OC43 PCR: NOT DETECTED Metapneumovirus PCR: NOT DETECTED Rhinovirus/Enterovirus PCR: NOT DETECTED Influenza A PCR: NOT DETECTED Influenza B PCR: NOT DETECTED Parainfluenza 1 PCR: NOT DETECTED Parainfluenza 2 PCR: NOT DETECTED Parainfluenza 3 PCR: NOT DETECTED Parainfluenza 4 PCR: NOT DETECTED RSV PCR: NOT DETECTED B PARAPERTUSIS PCR NOT DETECTED Bordtella Pertussis PCR: NOT DETECTED CHLAMYDOPHILA PNEUMONIAE PCR NOT DETECTED Mycoplasma Pneumoniae PCR: NOT DETECTED Coronavirus SARS CoV 2 PCR DETECTED Comment: RESULTS PHONED TO AND READ BACK BY: Jacquelin PEREZLIFE SCIENCES INSTRUCTOR @[facility] 02/29/20 [place] THE SARS-CoV-2 TEST HAS BEEN AUTHORIZED BY THE FDA UNDER AN EUA FOR USE BY AUTHORIZED LABORATORIES. CULTURE, BACTERIA, BLOOD [[id number]] Collected: 02/29/20 1626 Order Status: Canceled Lab Status: No result Specimen: BLOOD CULTURE, BACTERIA, BLOOD [[id number]] Collected: 02/29/20 112 Order Status: Completed Lab Status: Preliminary result Updated: 03/04/20 120 Specimen: BLOOD Spec. Description BLOOD Special Requests: NO SPECIAL REQUEST Culture Result: NO GROWTH 4 DAYS CULTURE, BACTERIA, BLOOD [[id number]] Collected: 02/29/20 112 Order Status: Completed Lab Status: Preliminary result Updated: 03/04/20 120 Specimen: BLOOD Spec. Description BLOOD Special Requests: NO SPECIAL REQUEST Culture Result: NO GROWTH 4 DAYS Radiology: Imaging: Ir Picc Plc Greater 5yr Result Date: 03/02/2020 PROCEDURE: Left upper extremity double lumen peripherally inserted central venous catheter (PICC). DATE : 03/02/2020 2:34 PM INDICATION: IV antibiotics needed. PHYSICIANS: Sandi Andersen M.D., Efrain Marc PA-C MEDICATIONS: Local lidocaine anesthesia only. FLUOROSCOPY TIME: 0.25 minutes and 1 flu oroscopic image sent to PACS. TECHNIQUE AND FINDINGS: The patient was brought to the fluoroscopy suite, placed in the supine position, and a timeout was performed. The patient's Left upper extremity was then sterilely prepped and draped. Maximal sterile barrier techniques were utilized throughout the procedure; including hand cleaning with alcohol based hand rub. Sterile ultrasound barrier techniques were utilized throughout the procedure. Ultrasound evaluation of potential access sites was performed. Following local anesthesia with 1% lidocaine, a 21 gauge needle was used to puncture the patent brachial vein several centimeters above the antecubital fossa under ultrasound guidance, with image saved for the permanent record. An 0.018 inch wire was advanced through the needle into the central veins, as confirmed fluoroscopically. The needle was then exchanged over the wire for a peel-away sheath. A 4 Fijian double lumen PICC was cut to an appropriate length of 52 cm and advanced through the peel-away sheath. The wire and peel-away sheath were removed. The tip of the PICC tip was located at the cavoatrial junction on final recorded fluoroscopic image. The PICC aspirated and flushed well and was flushed with heparinized saline. The catheter was secured to the skin at the exit site and a sterile dressing was applied. The patient appeared to tolerate the procedure well. IMPRESSION: Placement of a Left upper extremity 4 Fijian double lumen peripherally inserted centralvenous catheter, as detail above. PLAN: The catheter is ready for immediate use. The attending radiologist, Dr. Andersen, was in the department for all critical portions of the procedure, has reviewed the images, and agrees with the content of this report. Dictated By: NACHO Conn on 03/02/2020 2:34 PM Interpreted By: NACHO Conn, 03/02/2020 2:34 PM Xr Chest Portable Result Date: 02/29/2020 02/29/2020, 1135 hours. HISTORY: Short of breath. Cough. Body aches and fever for one week. History of hypertension. EXAM: Erect portable AP chest. No comparison. FINDINGS: Patchy infiltrate or less likely congestion in the mid and lower lungs bilaterally. The heart size is upper normal. No central vascular distention. Slight blurring of the right diaphragm, cannot exclude tiny right pleural effusion. No evidence of left pleural effusion. No pneumothorax. IMPRESSION: Pulmonary opacities suggesting bilateral pulmonary infiltrates, less likely congestion. Interpreted By: Jed Poe MD, 02/29/2020 11:58 AM # Portions of this chart may have been created with voice recognition software. Occasional wrong-word or ???sound-alike?? substitutions may have occurred due to the inherent limitations of voice recognition software. Read the chart carefully and recognize, using context, where these substitutions have occurred. # Part of the above documentation may contains notes/studies/informations copied forward from priornotes, all data reconfirmed and physical examination performed, plans were reconfirmed and new orders entered as needed on the day of this service. JAYDA PATEL DO 03/04/2020 5:04 PM * Mine Krause RN - 03/03/2020 11:13 PM CDT Pt has had no falls while in my care. O2 was increased to 10L again but will continue to decrease because she is tolerating O2 great. Peir and aguilar care being done Q4H and PRN. * Shelia Ling MD - 03/03/2020 5:03 PM CDT LOI ID PROGRESS NOTE: Althea Kong is a 54-year-old female patient with a PMH of hypertension, obesity, MART on CPAP, anxiety and depression who is admitted to the hospital with COVID-19 pneumonia. SUBJECTIVE/Interval Events: Patient was in CT when called on the phone. Noted to have an increase in her oxygen requirements to10 L from 3 L today. CRP down to 1.04 from 2.35. OBJECTIVE: Filed Vitals: 03/02/20 2150 03/03/20 0500 03/03/20 0700 03/03/20 0852 BP: 130/77 117/74 Pulse: 65 67 Resp: 21 22 Temp: 98.6 ??F (37 ??C) 98.3 ??F (36.8 ??C) TempSrc: Oral Oral SpO2: 96% 97% (!) 85% (!) 89% Weight: Height: Physical Exam The patient was not examined to limit exposure to COVID-19. ASSESSMENT: Althea Kong is an 54-year-old female with a PMH of hypertension, obesity, MART on CPAP, anxiety and depression who is admitted to the hospital with COVID- 19 pneumonia. #COVID-19 pneumonia. ?? Infectious work-up: Respiratory PCR (02/29/2020): Positive for SARS-CoV-2. Blood culture (02/29/2020): No growth so far. Sputum culture (03/01/2020): GNR's, alpha Streptococcus and Micrococcus. ?? Imaging: Chest x-ray (02/29/2020): Bilateral pulmonary infiltrates. CTA chest (03/03/2020): In process. ?? Procedures: PLAN/ RECOMMENDATIONS: ?? Continue azithromycin 500 mg every 24 hours and ceftriaxone 2 g IV every 24 hours. ?? Continue dexamethasone per primary. ?? Continue remdesivir 100 mg IV every 24 hours. Will treat for a total of 5 days. ?? Ordered 1 unit of COVID-19 convalescent plasma today. ?? Continue to monitor oxygen status and inflammatory markers including CRP, LDH, ferritin, d-dimeretc. LOI ID will continue to follow. Please call for questions. Thanks. Judith Byers MD [facility] Infectious Diseases Fellow Pager # [phone] 03/03/2020 Teaching physician note:??Infectious Diseases Attending Physician:? Labs and vitals reviewed. LOI Infectious Disease Fellow/Resident note reviewed and findings verified.?? Case discussed with theInfectious Disease team * Clarence Gil MD - 03/03/2020 10:10 AM CDT Proper PPE equipment used and proper precaution was taken before while evaluating patient. Chief Complaint: COVID, respiratory failure SUBJECTIVE: Reports not feeling well Breathing seems unchanged Reports anxiety Noticed increased oxygen demand this morning to 10 L Review of Systems All other systems reviewed and are negative. OBJECTIVE Vital signs: Blood pressure 117/74, pulse 67, temperature 98.3 ??F (36.8 ??C), temperature source Oral, resp. rate 22, height 5' 4 (1.626 m), weight (!) 184.9 kg (407 lb 9.6 oz), SpO2 (!) 89 %. Physical examination; Head: Atraumatic, normocephalic, morbidly obese Constitutional: well developed and well nourished Eyes: EOMI. Heart: regular rate and rhythm Respiratory: normal effort, no respiratory distress Abdomen: not distended Musculoskeletal : no cyanosis or gross edema Skin: No rash, lesion or ulcer Neuro: patient is alert, Oriented *3. Moves all extremities Psych: anxious LABS:. Recent Labs 02/29/20 1120 03/01/20 1700 03/02/20 0350 WBC 3.6* 4.6 4.4 HGB 11.3* 10.6* 10.5* HCT 34.4* 32.3* 32.0* MCV 92.5 91.2 92.5 PLT 190 227 238 RBC 3.72* 3.54* 3.46* Recent Labs Lab 03/01/20 1700 03/02/20 0350 03/03/20 0904 NA 138 136 138 139 K 2.7* 2.5* 3.1* 3.8 CL 101 99 103 109* CO2 29.6 29.9 28.5 23.1 AGAP 7.4 7.1 6.5 6.9 BUN 6* 6* 5* 10 CR 0.52* 0.52* 0.49* 0.41* GFRNON >90 >90 >90 >90 GFR >90 >90 >90 >90 GLU 111* 115* 148* 121* CA 8.3* 8.5 8.0* 7.6* TP 7.4 7.2 6.2* ALB 3.0* 2.9* 2.6* TBIL 1.0 0.5 0.4 ALKP 59 59 49 AST 49* 50* 44* ALT 62* 62* 52 Recent Labs Lab 02/29/20 1120 03/01/20 1700 INR 1.1 1.1 No intake or output data in the 24 hours ending 03/03/20 1010 RADIOLOGY : REVIEWED MEDICATIONS Scheduled medications ??? aspirin 81 mg Oral Daily ??? azithromycin 500 mg Intravenous Q24H ??? cefTRIAXone 2 g Intravenous Q24H ??? citalopram 10 mg Oral Daily ??? dexamethasone 6 mg Intravenous Q12H ??? famotidine 20 mg Intravenous 2 times per day Or ??? famotidine 20 mg Oral 2 times per day ??? gabapentin 300 mg Oral Nightly at bedtime ??? guaiFENesin ER 600 mg Oral BID ??? oxybutynin 10 mg Oral BID ??? [START ON 03/04/2020] remdesivir 100 mg Intravenous Q24H ??? sodium chloride 0.9% 30 mL Intravenous See Admin Instructions Infusion ??? dexmedetomidine PRN acetaminophen, albuterol sulfate HFA, guaiFENesin, melatonin, ondansetron, Senna ASSESSMENT /PLAN Althea Kong is a 54-year-old female Admitted with Respiratory failure (CMS/HCC) #Acute hypoxic respiratory failure #Community-acquired pneumonia #COVID-19 infection #Sepsis Breathing treatments and O2 supplementation on IV Rocephin and azithromycin sputum culture pending Continue to monitor procalcitonin, d-dimer, ferritin, lactic acid, blood cultures Continue to monitor infectious disease consulted, plan for diane Choiadron CTA chest #Morbid obesity #MART, uses CPAP at home Counseled on weight reduction Use CPAP in the night Breathing treatments and O2 supplementation ?? #Hypertension #History of anxiety/depression Resume home medications and monitor vitals ?? #Hypokalemia Replace as indicated ?? DVT Prophylaxis: Lovenox Code status: Full Code Discussed with on phone, who agreed with plan of care and management. Clarence Gil MD 10:10 AM 03/03/2020 This morning patient noticed to desaturate to 84% at rest on 3 L. Subsequently oxygen was increasedto 10 L. I discussed this with clinic receptionist. Patient being transferred to ICU for close monitoring. Discussed with her who reports understanding of plan of care and management. * Jaquan Graves RN - 03/02/2020 11:45 PM CDT Problem: Infection/Colonization Infection/Isolation Goal: Absence of infection signs and symptoms Infection/Isolation Outcome: Progressing Problem: Pain Goal: Patient's pain/discomfort is manageable Description Assess and monitor patient's pain using appropriate pain scale. Collaborate with interdisciplinary team and initiate plan and interventions as ordered. Re-assess patient's pain level 30 - 60 minutes after pain management intervention. Outcome: Progressing Problem: Safety Goal: Patient will be injury free during hospitalization Description Assess and monitor vitals signs, neurological status including level of consciousness and orientation. Assess patient's risk for falls and implement fall prevention plan of care and interventions perhospital policy. Ensure arm band on, uncluttered walking paths in room, adequate room lighting, call light and overbed table within reach, bed in low position, wheels locked, side rails up per policy, and non-skid footwear provided. Outcome: Progressing Problem: Daily Care Goal: Daily care needs are met Description Assess and monitor ability to perform self care and identify potential discharge needs. Outcome: Progressing Problem: Psychosocial Needs Goal: Demonstrates ability to cope with hospitalization/illness Description Assess and monitor patients ability to cope with his/her illness. Outcome: Progressing Goal: Collaborate with patient/family/caregiver to identify patient specific goals for this hospitalization Outcome: Progressing * Kirstin Aguilar RN - 03/02/2020 2:59 PM CDT Engine Specialist called and spoke with pt's spouse to obtain TOWER HAND. He states pt uses a CPAP at night and has not been using any ambulation aids. He states pt does normally walk slow as she has 2 bad knees . She has never been to rehab or used services. Spouse states plans to take pt home at discharge,needs unknown at this time. Cm will continue to follow for a safe discharge plan. 03/02/20 3155 Referral Data Referral Reason Discharge Planning Source of Information Family/Significant Other Patient Information Primary Caregiver Self Support System Immediate family Baseline ADL's Functional Status Minimum assistance Living Arrangements Spouse/significant other Type of Residence Private residence Ambulation Assistance No Bathing/Grooming Assistance No Dressing Assistance No Behavior Oriented Communication Talks Psychological Needs: Suspected Drug or Alcohol Abuse No Inappropriate Patient/Family Behaviors No Difficult Adjustment to Diagnosis No Anticipated Discharge Needs In-Home Care or Equipment Not Known at this time Inability to Complete ADL's Not Known at this time Anticipated DC Plan Living Arrangements Spouse/significant other Support Systems Spouse/significant other Type of Residence Private residence Patient expects to be discharged to: Home Psychosocial Needs With Indication for Social Work Consult Family concerns/conflicts No Inadequate social and/or financial supports No Abuse and/or neglect of elder, adult or child No Psychiatric and/or substance abuse issues affecting current hospitalization No Homelessness with lack of safe discharge environment No Need for guardianship petition No * Clarence Gil MD - 03/02/2020 12:03 PM CDT Proper PPE equipment used and proper precaution was taken before while evaluating patient. Chief Complaint: COVID, respiratory failure SUBJECTIVE: Seems comfortable sitting in bed Reports breathing better Reports anxiety No acute event overnight Review of Systems All other systems reviewed and are negative. OBJECTIVE Vital signs: Blood pressure 140/83, pulse 76, temperature 99.1 ??F (37.3 ??C), temperature source Oral, resp. rate 20, height 5' 4 (1.626 m), weight (!) 184.9 kg (407 lb 9.6 oz), SpO2 91 %. Physical examination; Head: Atraumatic, normocephalic, morbidly obese Constitutional: well developed and well nourished Eyes: EOMI. Heart: regular rate and rhythm Respiratory: normal effort, no respiratory distress Abdomen: not distended Musculoskeletal : no cyanosis or gross edema Skin: No rash, lesion or ulcer Neuro: patient is alert, Oriented *3. Moves all extremities Psych: anxious LABS:. Recent Labs 02/29/20111903/01/20 17003/02/20 0350 WBC 3.6* 4.6 4.4 HGB 11.3* 10.6* 10.5* HCT 34.4* 32.3* 32.0* MCV 92.5 91.2 92.5 PLT 190 227 238 RBC 3.72* 3.54* 3.46* Recent Labs Lab 02/29/20 11203/01/20 17003/02/20 0350 NA 142 138 136 138 K 2.9* 2.7* 2.5* 3.1* CL 103 101 99 103 CO2 32.4* 29.6 29.9 28.5 AGAP 6.6 7.4 7.1 6.5 BUN 6 6* 6* 5* CR 0.66 0.52* 0.52* 0.49* GFRNON >90 >90 >90 >90 GFR >90 >90 >90 >90 GLU 130* 111* 115* 148* CA 8.5 8.3* 8.5 8.0* TP 7.4 7.4 7.2 ALB 3.1* 3.0* 2.9* TBIL 0.4 1.0 0.5 ALKP 62 59 59 AST 64* 49* 50* ALT 75* 62* 62* Recent Labs Lab 02/29/20111903/01/20 1700 INR 1.1 1.1 No intake or output data in the 24 hours ending 03/02/20 1203 RADIOLOGY : REVIEWED MEDICATIONS Scheduled medications ??? aspirin 81 mg Oral Daily ??? atenolol 100 mg Oral nightly ??? azithromycin 500 mg Intravenous Q24H ??? cefTRIAXone 2 g Intravenous Q24H ??? citalopram 10 mg Oral Daily ??? dexamethasone 6 mg Intravenous Q12H ??? enoxaparin 40 mg Subcutaneous Q24H ??? famotidine 20 mg Intravenous 2 times per day Or ??? famotidine 20 mg Oral 2 times per day ??? gabapentin 300 mg Oral Nightly at bedtime ??? guaiFENesin ER 600 mg Oral BID ??? oxybutynin 10 mg Oral BID ??? [START ON 03/03/2020] remdesivir 100 mg Intravenous Q24H ??? sodium chloride 0.9% 30 mL Intravenous See Admin Instructions Infusion PRN acetaminophen, albuterol sulfate HFA, guaiFENesin, LORazepam, melatonin, ondansetron, Senna ASSESSMENT /PLAN Althea Kong is a 54-year-old female Admitted with Respiratory failure ([facility]) #Acute hypoxic respiratory failure #Community-acquired pneumonia #COVID-19 infection #Sepsis Breathing treatments and O2 supplementation on IV Rocephin and azithromycin sputum culture pending Continue to monitor procalcitonin, d-dimer, ferritin, lactic acid, blood cultures Continue to monitor infectious disease consulted, plan for ramdesevir Decadron CTA chest #Morbid obesity #MART, uses CPAP at home Counseled on weight reduction Use CPAP in the night Breathing treatments and O2 supplementation ?? #Hypertension #History of anxiety/depression Resume home medications and monitor vitals ?? #Hypokalemia Replace as indicated ?? DVT Prophylaxis: Lovenox Code status: Full Code Discussed with on phone, who agreed with plan of care and management. Clarence Gil MD 12:03 PM 03/02/2020 * Clarence Gil MD - 03/01/2020 2:39 PM CDT This encounter was conducted through teleconference due to patient's COVID-19 suspected status to minimize exposure and protect PPE's. I introduced and identified myself, received verbal consent?from the patient to proceed with this video visit and made the patient aware that the same confidentiality and health information provider practices apply. The patient joined the video visit from room 408 at [facility].??. I completed the virtual visit from??my office.?The following clinical staff helped with this visit RN Chief Complaint: COVID, respiratory failure SUBJECTIVE: Seem to comfortable on 3 liter NC Reports breathing at baseline Reports did not sleep well Cough, shortness of breath, fever Reports significant anxiety and takes Ativan and gabapentin at home No acute event overnight Review of Systems All other systems reviewed and are negative. OBJECTIVE Vital signs: Blood pressure 130/88, pulse 59, temperature 100.3 ??F (37.9 ??C), resp. rate 22, height 5' 4 (1.626 m), weight (!) 184.9 kg (407 lb 9.6 oz), SpO2 93 %. Physical examination; Head: Atraumatic, normocephalic Constitutional: well developed and well nourished Eyes: sclera; no icterus, no pallor, EOMI. , no lid-lag or proptosis Heart: regular rate and rhythm on tele monitor Respiratory: normal effort, no respiratory distress Abdomen: not distended Musculoskeletal : no cyanosis or gross edema Skin: No rash, lesion or ulcer Neuro: cranial nerves, intake, patient is alert, Oriented *3. Moves all extremities Psych: mood and affect appropriate. LABS:. Recent Labs 02/29/20 1120 WBC 3.6* HGB 11.3* HCT 34.4* MCV 92.5 PLT 190 RBC 3.72* Recent Labs Lab 02/29/20 1120 NA 142 K 2.9* CL 103 CO2 32.4* AGAP 6.6 BUN 6 CR 0.66 GFRNON >90 GFR >90 GLU 130* CA 8.5 TP 7.4 ALB 3.1* TBIL 0.4 ALKP 62 AST 64* ALT 75* Recent Labs Lab 02/29/20 1120 INR 1.1 Intake/Output Summary (Last 24 hours) at 03/01/2020 1440 Last data filed at 02/29/2020 1830 Gross per 24 hour Intake 220 ml Output -- Net 220 ml RADIOLOGY : REVIEWED MEDICATIONS Scheduled medications ??? aspirin 81 mg Oral Daily ??? atenolol 100 mg Oral nightly ??? azithromycin 500 mg Intravenous Q24H ??? cefTRIAXone 1 g Intravenous Q24H ??? citalopram 10 mg Oral Daily ??? dexamethasone 6 mg Intravenous Q12H ??? enoxaparin 40 mg Subcutaneous Q24H ??? famotidine 20 mg Intravenous 2 times per day Or ??? famotidine 20 mg Oral 2 times per day ??? gabapentin 300 mg Oral Nightly at bedtime ??? guaiFENesin ER 600 mg Oral BID ??? oxybutynin XL 10 mg Oral BID ??? remdesivir 200 mg Intravenous Q24H Followed by ??? [START ON 03/02/2020] remdesivir 100 mg Intravenous Q24H ??? sodium chloride 0.9% 30 mL Intravenous See Admin Instructions Infusion PRN acetaminophen, albuterol sulfate HFA, guaiFENesin, LORazepam, ondansetron, Senna ASSESSMENT /PLAN Althea Kong is a 54-year-old female Admitted with Respiratory failure ([facility]) #Acute hypoxic respiratory failure #Community-acquired pneumonia #COVID-19 infection #Sepsis Breathing treatments and O2 supplementation on IV Rocephin and azithromycin Get respiratory PCR panel Get sputum culture Continue to monitor procalcitonin, d-dimer, ferritin, lactic acid, blood cultures Continue to monitor infectious disease consulted, plan for ramdesevir Decadron No iv access, will place picc line #Morbid obesity #MART, uses CPAP at home Counseled on weight reduction Use CPAP in the night Breathing treatments and O2 supplementation ?? #Hypertension #History of anxiety/depression Resume home medications and monitor vitals ?? #Hypokalemia Patient was given potassium supplement at [facility], will monitor BMP and replace as needed -lab pending this morning ?? DVT Prophylaxis: Lovenox Code status: Full Code I saw patient via video conference to conserve PPE usage and reduce exposure as patient is positiveof COVID 19 infection or PUI. Discussed with RN regarding plan. Attempted to contact her , unable to reach. Patient gave verbal consent for ramdesevir and plasma, patient understands risk and side effect of therapy. Clarence Gil MD 2:40 PM 03/01/2020 documented in this encounter H&P Notes * Isela Fitzpatrick MD - 02/29/2020 4:39 PM CDT This encounter was conducted through teleconference due to patient's COVID-19 suspected status to minimize exposure and protect PPE's. I introduced and identified myself, received verbal consent from the patient to proceed with this video visit and made the patient aware that the same confidentiality and health information provider practices apply. The patient joined the video visit from room 408 at [facility]. . I completed the virtual visit from my office. The following clinical staff helped with this visit RN, Amy. Attending Provider: Isela Fitzpatrick MD PCP: CRISTY GUAN MD Chief Complaint: Shortness of breath since 1 week History of presenting Illness: 54-year-old female with past medical history of MART, uses CPAP in the night, morbid obesity, hypertension, anxiety/depression comes with complaints of shortness of breath since 1 week. As per patient, patient has been having shortness of breath with fever around a week back, last Friday was testedfor COVID negative and 19. Patient continued to have shortness of breath with fever, cough with mucoid yellow sputum production. Chest congestion from cough present. Patient also states she has some diarrhea, mucus noted. Mild pain in the abdomen present. Patient presented to emergency room in [place] for evaluation, patient had temperature of 101.2 ??F in ER. Patient respirations 35/min, pulse 100/min, blood pressure 159/117, O2 saturations 89% on room air, improved with 2 L nasal cannula oxygen. I personally view chest x-ray done at [facility] ER which shows bilateral infiltrates. Patient transferred to [facility] for further care and evaluation as suspected PUI COVID-19. When I evaluated patient, patient in mild distress, on 2 nasal cannula oxygen, temperature 101 ??F, tachycardic, respirations 28/min, O2 saturations 93% on 3 L nasal cannula oxygen. Labs at [facility] showed sodium 142, potassium 2.9, creatinine 0.6, INR 1.1, lactic acid 1.2, white count 3600, hemoglobin 11.3, platelet 1 90,000 and other labs reviewed. Patient admitted under hospitalist for further care and evaluation Review of systems: 10 systems reviewed and negative except above Physical Exam Head: Atraumatic, normocephalic Constitutional: well developed and well nourished Eyes: sclera; no icterus, no pallor, EOMI. , no lid-lag or proptosis Heart: regular rate and rhythm on tele monitor Respiratory: Mild respiratory distress present Abdomen: not distended, nontender Musculoskeletal : Bilateral leg swelling present Skin: No rash, lesion or ulcer Neuro: cranial nerves, intake, patient is alert, Oriented *3. Moves all extremities Psych: mood and affect appropriate. Past Medical History: Diagnosis Date ??? Allergies ??? Anxiety ??? Depression ??? Hypertension ??? Neuropathy ??? Obesity ??? Sleep apnea ??? Urinary bladder incontinence Social History Tobacco Use ??? Smoking status: Never Smoker ??? Smokeless tobacco: Never Used Substance Use Topics ??? Alcohol use: Never Frequency: Never Past Surgical History: Procedure Laterality Date ??? SECTION, CLASSIC ??? HYSTERECTOMY Family History Problem Relation Name Age of Onset ??? Heart Disease Mother ??? Kidney Disease Mother ??? Heart Disease Father ??? Diabetes Brother Allergies: No Known Allergies No current facility-administered medications on file prior [...] mouth 2 (two) times a day. Active Problems: Respiratory failure (CMS/HCC) SNOMED CT(R): RESPIRATORY FAILURE Blood pressure (!) 134/117, pulse 100, temperature 101 ??F (38.3 ??C), temperature source Oral, resp. rate 28, height 5' 4 (1.626 m), weight (!) 181.4 kg (399 lb 14.6 oz), SpO2 93 %. Recent Labs 02/29/20 1120 WBC 3.6* HGB 11.3* HCT 34.4* MCV 92.5 PLT 190 RBC 3.72* Recent Labs 02/29/20 1120 ALT 75* AST 64* CO2 32.4* CL 103 GLU 130* K 2.9* NA 142 BUN 6 Xr Chest Portable Result Date: 02/29/2020 IMPRESSION: Pulmonary opacities suggesting bilateral pulmonary infiltrates, less likely congestion. Interpreted By: Jed Poe MD, 02/29/2020 11:58 AM Assessment/Plan: #Acute hypoxic respiratory failure #Community-acquired pneumonia #Suspected COVID-19 infection #Sepsis Breathing treatments and O2 supplementation We will start IV Rocephin and azithromycin IV fluids Get respiratory PCR panel Get sputum culture Get CTA chest Get echocardiogram Get procalcitonin, d-dimer, ferritin, lactic acid, blood cultures #Morbid obesity #MART, uses CPAP at home Counseled on weight reduction Use CPAP in the night Breathing treatments and O2 supplementation #Hypertension #History of anxiety/depression Resume home medications and monitor vitals #Hypokalemia Patient was given potassium supplement at [facility], will monitor BMP and replace as needed #DVT/GI prophylaxis Subcu Lovenox/Pepcid Discussed with RN on the plan Total time spent: 72 minutes, more than 50% of time spent in coordination of care, reviewing records and discussing with patient about current medical condition and management ISELA FITZPATRICK MD 02/29/2020 documented in this encounter Procedure Notes * Efrain Marc PA-C - 03/01/2020 4:08 PM CDT Interventional Radiology Post Procedure Note Pre Op Diagnosis: IV antibiotics needed. Post Op Diagnosis: same as pre op. Procedure: Ultrasound and fluoroscopically guided left arm PICC line placement. Radiologist: Sandi Andersen MD, EFRAIN MARC PA-C Finger Waver: none Anesthesia: Local - 1% Lidocaine Findings: Successful ultrasound and fluoroscopically guided left brachial double lumen 52 cm PICC line placement. Complications: None Estimated Blood Loss: nil Implants: 4 Fijian double lumen 52 cm PICC line placement. Condition: Good EFRAIN MARC PA-C 03/01/2020 Cosigned by Sandi Sauceda MD at 03/02/2020 8:54 PM CDT documented in this encounter Consult Notes * Jayda Patel DO - 03/03/2020 5:38 PM CDT Images from the original note were not included. Critical Care Medicine [place], [place] [address]/01 Pager: [phone] H&P/Consult Note Reason for ICU admission: Worsening respiratory failure Reason for consult: Hypoxemia Consulting MD: Jeffery Principal Problem: <principal problem not specified> HPI: History is obtained from patient and chart History is limited due to intermittent respiratory distress Althea Kong is a 54-year-old female admitted 02/29/2020 with shortness of breath, found to have acute hypoxemic respiratory failure due to cold with pneumonia Patient was transferred to ICU due to increasing oxygen requirements with work of breathing Patient currently states that she is not able to take full breaths, feels winded but denies any fevers, chills, nausea, vomiting, diarrhea, frequency, urgency, dysuria Assessment and Plan: Althea Kong is a 54-year-old female with past medical history of morbid obesity, obesity hypoventilation syndrome, anxiety/depression, hypertension, admitted 02/29/2020 with acute hypoxemic respiratory failure, COVID pneumonia, hypokalemia PLAN: Hospital day: 3 ICU day: 3h Neuro: ? -Per protocol neuro assessment -Use benzodiazepine at home dose along with Precedex to maintain a RASS goal of 0 -Monitor for ICU acquired delirium -Continue home antidepressant and antianxiety medication ? CV: ? -Maintain MAP above 65 -Diurese as needed EP negative balance -Continue aspirin but hold all antihypertensives for now Lung: -Wean FiO2 to keep sats above 92% -Continue dexamethasone, IV antibiotics and remdesivir per ID -Follow inflammatory markers -Bronchodilators prn, pulmonary toilet, aspiration precautions -We will obtain a CT AVELAR and treat with heparin drip while results are pending ? GI: -Nutrition: Cardiac diet -Aspiration precautions ? Renal: ? -Strict i/o measurement, replete K, Phos and Mg as needed for hypokalemia, hypophosphatemia and hypomagnesemia -Target UOP >0.5-1ml/kg/hr -Aguilar Catheter as indicated ? ID: -Infectious disease managing antibiotics and remdesivir pending blood, sputum and urine cultures -Patient received 1 dose of convalescent plasma today Heme: -Transfuse PRBC as needed to maintain a hemoglobin above 7 ? Endo: -Target BS below 180, insulin protocol as needed ? Msk/Skin: -Wound/Surgical Site checks daily. ? Misc: -Pain Control PRN, antiemetics prn -OOB to chair, PT/OT, ambulation if tolerated. -Pressure Ulcer prophylaxis DVT Prophylaxis: Heparin drip GI Prophylaxis: Home PPI Code Status: Full Code LINES and TUBES: PIVs ETT: No ? Disposition: Continue ICU status. Critical Care time spent in evaluation and management of a critically ill or injured patient is 55 minutes, such that the critical illness or injury acutely impairs one or more organ system: Cardiovascular, Neurologic, Renal, Pulmonary, Gastrointestinal, Endocrine, Infectious diseases such that there is a high probability of imminent or life-threatening deterioration in the patient's condition needing immediate attention or presence of critical care physician near bedside for the above time . The time listed is exclusive of any procedures which may have been performed. Critical care time includes time spent at bedside performing history and physical exam, time spent researching patient prior to interaction with patient, time spent discussing findings and treatment plan with patient and/or family, time spent discussing patient with consultants and colleagues, timespent reviewing pertinent laboratory and radiographic evaluations, time spent re- evaluating patient, or time spent discussing patient with nursing staff. All of the patient's and his family's questions were answered, and the plan of care going forward was outlined to them. JAYDA PATEL DO 03/03/2020 5:38 PM Past Medical Hx: As below Past surgical Hx: As below Home Medications: As below Family History: As below Personal and social hx: As below Past Medical History: Diagnosis Date ??? Allergies ??? Anxiety ??? Depression ??? Hypertension ??? Neuropathy ??? Obesity ??? Sleep apnea ??? Urinary bladder incontinence Past Surgical History: Procedure Laterality Date ??? SECTION, CLASSIC ??? HYSTERECTOMY Family History Problem Relation Name Age of Onset ??? Heart Disease Mother ??? Kidney Disease Mother ??? Heart Disease Father ??? Diabetes Brother No current facility-administered medications on file prior to encounter. Current Outpatient Medications on File Prior to Encounter Medication Sig Dispense Refill ??? aspirin 81 MG chewable tablet Chew [...] by mouth 2 (two) times a day. No Known Allergies Social History Socioeconomic History ??? Marital status: Spouse name: Not on file ??? Number of children: Not on file ??? Years of education: Not on file ??? Highest education level: Not on file Occupational History ??? Not on file Social Needs ??? Financial resource strain: Not on file ??? Food insecurity: Worry: Not on file Inability: Not on file ??? Transportation needs: Medical: Not on file Non-medical: Not on file Tobacco Use ??? Smoking status: Never Smoker ??? Smokeless tobacco: Never Used Substance and Sexual Activity ??? Alcohol use: Never Frequency: Never ??? Drug use: Never ??? Sexual activity: Not on file Lifestyle ??? Physical activity: Days per week: Not on file Minutes per session: Not on file ??? Stress: Not on file Relationships ??? Social connections: Talks on phone: Not on file Gets together: Not on file Attends jehovah's witness service: Not on file Active member of club or organization: Not on file Attends meetings of clubs or organizations: Not on file Relationship status: Not on file ??? Intimate partner violence: Fear of current or ex partner: Not on file Emotionally abused: Not on file Physically abused: Not on file Forced sexual activity: Not on file Other Topics Concern ??? Not on file Social History Narrative ??? Not on file Current inpatient medications: Current Facility-Administered Medications: ??? acetaminophen (TYLENOL) tablet 650 mg, 650 mg, Oral, Q6H PRN, Isela Fitzpatrick MD, 650 mg at 03/02/20 1416 ??? albuterol sulfate HFA 108 (90 Base) MCG/ACT inhaler 2 puff, 2 puff, Inhalation, Q4H PRN, Isela Fitzpatrick MD ??? alteplase (CATHFLO) injection 2 mg, 2 mg, Intravenous, Once, Jayda Patel, DO ??? aspirin chewable tablet 81 mg, 81 mg, Oral, Daily, Isela Fitzpatrick MD, 81 mg at 03/03/20 0849 ??? azithromycin (ZITHROMAX) 500 mg in sodium chloride 0.9 % 250 mL IVPB, 500 mg, Intravenous, Q24H, Isela Fitzpatrick MD, Stopped at 03/02/20 0623 ??? cefTRIAXone (ROCEPHIN) 2 g in sodium chloride 0.9 % 50 mL IVPB, 2 g, Intravenous, Q24H, Judith Clements MD, Stopped at 03/02/20 2253 ??? citalopram (CeleXA) tablet 10 mg, 10 mg, Oral, Daily, Clarence Gil MD, 10 mg at 03/03/20 0849 ??? dexamethasone (DECADRON) injection 6 mg, 6 mg, Intravenous, Q12H, Clarence Gil MD, 6 mg at 03/03/20 0848 ??? dexmedetomidine (PRECEDEX) 4 mcg/mL in sodium chloride 0.9 % 100 mL infusion, 0.1-1.4 mcg/kg/hr, Intravenous, Continuous, Jayda Patel DO, Last Rate: 27.7 mL/hr at 03/03/20 1421, 0.6 mcg/kg/hr at 03/03/20 1421 ??? famotidine (PEPCID) injection 20 mg, 20 mg, Intravenous, 2 times per day OR famotidine (PEPCID) tablet 20 mg, 20 mg, Oral, 2 times per day, Isela Fitzpatrick MD, 20 mg at 03/03/20 0849 ??? gabapentin (NEURONTIN) capsule 300 mg, 300 mg, Oral, Nightly at bedtime, Clarence Gil MD, 300 mg at 03/02/202055 ??? guaiFENesin (ROBITUSSIN) 100 MG/5ML solution 5 mL, 5 mL, Oral, Q6H PRN, Isela Fitzpatrick MD ??? guaiFENesin ER (MUCINEX) 12 hr tablet 600 mg, 600 mg, Oral, BID, Clarence Gil MD, 600 mg at 03/03/20 0849 ??? heparin (porcine) injection 10,000 Units, 10,000 Units, Intravenous, PRN, Jayda Patel, DO ??? heparin (porcine) injection 7,400 Units, 40 Units/kg, Intravenous, PRN, Jayda Patel, DO ??? heparin 25,000 units/250 mL infusion, 0-20 Units/kg/hr, Intravenous, Continuous, Jayda Patel,DO ??? heparin lock flush 10 UNIT/ML injection, , , , ??? LORazepam (ATIVAN) injection 0.5 mg, 0.5 mg, Intravenous, Q6H PRN, Jayda Patel, DO ??? melatonin tablet 5 mg, 5 mg, Oral, Nightly PRN, Clarence Gil MD, 5 mg at 03/02/202055 ??? naLOXone (NARCAN) injection 0.4 mg, 0.4 mg, Intravenous, PRN, Jayda Patel, DO ??? ondansetron (ZOFRAN) injection 4 mg, 4 mg, Intravenous, Q8H PRN, Isela Fitzpatrick MD, 4 mg at 03/02/20 1416 ??? oxybutynin (DITROPAN) tablet 10 mg, 10 mg, Oral, BID, Clarence Gil MD, 10 mg at 03/03/20 0849 ??? polyethylene glycol (GLYCOLAX) packet 17 g, 17 g, Oral, Daily PRN, Jayda Patel, DO ??? [START ON 03/04/2020] remdesivir 100 mg in sodium chloride 0.9 % 250 mL IVPB, 100 mg, Intravenous, Q24H, Clarence Gil MD ??? Senna (SENOKOT) 8.6 MG tablet 8.6 mg, 8.6 mg, Oral, Daily PRN, Isela Fitzpatrick MD ??? sodium chloride 0.9% bolus infusion SOLN 30 mL, 30 mL, Intravenous, See Admin Instructions, Judith Byers MD, Stopped at 03/02/20 0405 ??? sodium chloride 0.9% infusion, 250 mL, Intravenous, Continuous, Margarita Youssef [facility], Stopped at 03/03/20 1421 Subjective: 12 point review of systems was completed and negative except findings reported above in ICU timeline and HPI. Objective: Body mass index is 69.96 kg/m??. Current vital signs Blood pressure 117/74, pulse 67, temperature 98.3 ??F (36.8 ??C), temperature source Oral, resp. rate 22, height 5' 4 (1.626 m), weight (!) 184.9 kg (407 lb 9.6 oz), SpO2 (!) 89 %. Vitals: 03/03/20 0852 BP: Pulse: Resp: Temp: SpO2: (!) 89% 24 hour BP and temperature range Filed Vitals: 03/02/20 2150 03/03/20 0500 03/03/20 0700 03/03/20 0852 BP: 130/77 117/74 Pulse: 65 67 Resp: 21 22 Temp: 98.6 ??F (37 ??C) 98.3 ??F (36.8 ??C) TempSrc: Oral Oral SpO2: 96% 97% (!) 85% (!) 89% Weight: Height: Temp (24hrs), Av.5 ??F (36.9 ??C), Min:98.3 ??F (36.8 ??C), Max:98.6 ??F (37 ??C) Input/Output No intake/output data recorded. No intake or output data in the 24 hours ending 03/03/20 1968 Physical exam: General: Alert oriented ??3, mild distress with intermittent accessory muscle use, morbidly obese Neck: Supple, no JVD Head ear nose and throat: Moist oral mucosa, no pharyngeal erythema Pupils: Equal and reactive to light, no jaundice is appreciated Skin: Warm and no significant rashes seen Cardiovascular: Regular rate and rhythm, no murmur rubs or gallops. Lungs: Decreased breath sounds bilaterally. Abdomen: Soft, nontender non distended, bowel sounds are normal in all 4 quadrants Extremities: Minimal bilateral lower extremity edema Neurological: Patient is able to move all 4 extremities antigravity by himself. Data Review: Recent Labs 03/01/20 1700 03/02/20 0350 03/03/20 1250 WBC 4.6 4.4 6.1 HGB 10.6* 10.5* 10.7* HCT 32.3* 32.0* 32.7* MCV 91.2 92.5 91.9 PLT 227 238 337 RBC 3.54* 3.46* 3.56* Recent Labs Lab 03/01/20 1700 03/02/20 0350 03/03/20 0904 NA 138 136 138 139 K 2.7* 2.5* 3.1* 3.8 CL 101 99 103 109* CO2 29.6 29.9 28.5 23.1 AGAP 7.4 7.1 6.5 6.9 BUN 6* 6* 5* 10 CR 0.52* 0.52* 0.49* 0.41* GFRNON >90 >90 >90 >90 GFR >90 >90 >90 >90 GLU 111* 115* 148* 121* CA 8.3* 8.5 8.0* 7.6* TP 7.4 7.2 6.2* ALB 3.0* 2.9* 2.6* TBIL 1.0 0.5 0.4 ALKP 59 59 49 AST 49* 50* 44* ALT 62* 62* 52 Coagulation: Recent Labs 03/01/20 1700 INR 1.1 Troponins: Recent Labs Lab 02/29/20 1120 TROP <0.017 ABG: No results found for: BASEEXCESS VBG: No components found for: PHMIXEDVEN, [id number], [id number], [id number], [id number] Lactic acid: No components found for: LACTATE EKG: Results for orders placed or performed during the hospital encounter of 02/29/20 ECG 12 lead Narrative [place] [address] [place], [place] [id number] Test Date: 2020-03-03 Pat Name: ALTHEA KONG Department: Room: [facility] Gender: Female Scraper Burrer: KATIE : 1965 Requested By: JAYDA PATEL Order Number: [id number] Reading MD: Measurements Intervals [place] Rate: 56 P: -45 TN: 159 QRS: -22 QRSD: 98 T: 18 QT: 447 QTc: 433 Interpretive Statements SINUS BRADYCARDIA BORDERLINE LEFT AXIS DEVIATION ECHO: Pending Microbiology: No results found for this or any previous visit. Results for orders placed or performed during the hospital encounter of 02/29/20 (from the past 168hour(s)) CULTURE, BACTERIA, BLOOD Collection Time: 02/29/20 8:30 PM Result Value Ref Range Spec. Description BLOOD Special Requests: NO SPECIAL REQUEST Culture Result: NO GROWTH 2 DAYS and No results found for this visit on 02/29/20 (from the past 168 hour(s)). Microbiology Results (last 14 days) Procedure Component Value Units Date/Time CULTURE RESPIRATORY W/ GRAM STAIN [[id number]] Collected: 03/01/20 1400 Order Status: Completed Lab Status: Final result Updated: 03/03/20 1219 Specimen: SPUTUM, EXPECTORATED Spec. Description SPUTUM, EXPECTORATED Special Requests: NO SPECIAL REQUEST Gram Stain Result 10-25 NEUTROPHILS PER LPF Gram Stain Result <10 EPITHELIAL CELLS PER LPF Gram Stain Result -- MANY GRAM NEGATIVE RODS Gram Stain Result -- FEW GRAM POSITIVE COCCI IN PAIRS Culture Result: -- MODERATE ALPHA STREPTOCOCCUS Culture Result: -- FEW MICROCOCCUS SPECIES Culture Result: NORMAL RESPIRATORY VINAY PRESENT CULTURE, BACTERIA, BLOOD [[id number]] Collected: 02/29/20 2030 Order Status: Completed Lab Status: Preliminary result Updated: 03/02/20 2358 Specimen: BLOOD Spec. Description BLOOD Special Requests: NO SPECIAL REQUEST Culture Result: NO GROWTH 2 DAYS BIOFIRE PCR UPPER RESPIRATORY PROFILE (RESPIRATORY PCR PANEL 2) [[id number]] (Abnormal) Collected: 02/29/20 1628 Order Status: Completed Lab Status: Final result Updated: 02/29/20 175 Specimen: NASOPHARYNX Adenovirus PCR: NOT DETECTED Coronavirus 229E PCR: NOT DETECTED Coronavirus HKU1 PCR: NOT DETECTED Coronavirus NL63 PCR: NOT DETECTED Coronavirus OC43 PCR: NOT DETECTED Metapneumovirus PCR: NOT DETECTED Rhinovirus/Enterovirus PCR: NOT DETECTED Influenza A PCR: NOT DETECTED Influenza B PCR: NOT DETECTED Parainfluenza 1 PCR: NOT DETECTED Parainfluenza 2 PCR: NOT DETECTED Parainfluenza 3 PCR: NOT DETECTED Parainfluenza 4 PCR: NOT DETECTED RSV PCR: NOT DETECTED B PARAPERTUSIS PCR NOT DETECTED Bordtella Pertussis PCR: NOT DETECTED CHLAMYDOPHILA PNEUMONIAE PCR NOT DETECTED Mycoplasma Pneumoniae PCR: NOT DETECTED Coronavirus SARS CoV 2 PCR DETECTED Comment: RESULTS PHONED TO AND READ BACK BY: Jacquelin PEREZLIFE SCIENCES INSTRUCTOR @[id number] 02/29/20 [place] THE SARS-CoV-2 TEST HAS BEEN AUTHORIZED BY THE FDA UNDER AN EUA FOR USE BY AUTHORIZED LABORATORIES. CULTURE, BACTERIA, BLOOD [[id number]] Collected: 02/29/20 1626 Order Status: Canceled Lab Status: No result Specimen: BLOOD CULTURE, BACTERIA, BLOOD [[id number]] Collected: 02/29/20 1120 Order Status: Completed Lab Status: Preliminary result Updated: 03/03/20 1205 Specimen: BLOOD Spec. Description BLOOD Special Requests: NO SPECIAL REQUEST Culture Result: NO GROWTH 3 DAYS CULTURE, BACTERIA, BLOOD [[id number]] Collected: 02/29/20 1120 Order Status: Completed Lab Status: Preliminary result Updated: 03/03/20 1205 Specimen: BLOOD Spec. Description BLOOD Special Requests: NO SPECIAL REQUEST Culture Result: NO GROWTH 3 DAYS Radiology: Imaging: Ir Picc Plc Greater 5yr Result Date: 03/02/2020 PROCEDURE: Left upper extremity double lumen peripherally inserted central venous catheter (PICC). DATE : 03/02/2020 2:34 PM INDICATION: IV antibiotics needed. PHYSICIANS: Sandi Andersen M.D., Efrain Marc PA-C MEDICATIONS: Local lidocaine anesthesia only. FLUOROSCOPY TIME: 0.25 minutes and 1 flu oroscopic image sent to PACS. TECHNIQUE AND FINDINGS: The patient was brought to the fluoroscopy suite, placed in the supine position, and a timeout was performed. The patient's Left upper extremity was then sterilely prepped and draped. Maximal sterile barrier techniques were utilized throughout the procedure; including hand cleaning with alcohol based hand rub. Sterile ultrasound barrier techniques were utilized throughout the procedure. Ultrasound evaluation of potential access sites was performed. Following local anesthesia with 1% lidocaine, a 21 gauge needle was used to puncture the patent brachial vein several centimeters above the antecubital fossa under ultrasound guidance, with image saved for the permanent record. An 0.018 inch wire was advanced through the needle into the central veins, as confirmed fluoroscopically. The needle was then exchanged over the wire for a peel-away sheath. A 4 Fijian double lumen PICC was cut to an appropriate length of 52 cm and advanced through the peel-away sheath. The wire and peel-away sheath were removed. The tip of the PICC tip was located at the cavoatrial junction on final recorded fluoroscopic image. The PICC aspirated and flushed well and was flushed with heparinized saline. The catheter was secured to the skin at the exit site and a sterile dressing was applied. The patient appeared to tolerate the procedure well. IMPRESSION: Placement of a Left upper extremity 4 Fijian double lumen peripherally inserted centralvenous catheter, as detail above. PLAN: The catheter is ready for immediate use. The attending radiologist, Dr. Andersen, was in the department for all critical portions of the procedure, has reviewed the images, and agrees with the content of this report. Dictated By: NACHO Conn on 03/02/2020 2:34 PM Interpreted By: NACHO Conn, 03/02/2020 2:34 PM Xr Chest Portable Result Date: 02/29/2020 02/29/2020, 1135 hours. HISTORY: Short of breath. Cough. Body aches and fever for one week. History of hypertension. EXAM: Erect portable AP chest. No comparison. FINDINGS: Patchy infiltrate or less likely congestion in the mid and lower lungs bilaterally. The heart size is upper normal. No central vascular distention. Slight blurring of the right diaphragm, cannot exclude tiny right pleural effusion. No evidence of left pleural effusion. No pneumothorax. IMPRESSION: Pulmonary opacities suggesting bilateral pulmonary infiltrates, less likely congestion. Interpreted By: Jed Poe MD, 02/29/2020 11:58 AM # Portions of this chart may have been created with voice recognition software. Occasional wrong-word or ???sound-alike?? substitutions may have occurred due to the inherent limitations of voice recognition software. Read the chart carefully and recognize, using context, where these substitutions have occurred. # Part of the above documentation may contains notes/studies/informations copied forward from priornotes, all data reconfirmed and physical examination performed, plans were reconfirmed and new orders entered as needed on the day of this service. JAYDA PATEL DO 03/03/2020 5:38 PM * Shelia Ling MD - 03/01/2020 3:01 PM CDT LOI ID CONSULT NOTE Attending Provider: Clarence Gil MD Reason for Admission: Respiratory failure (CMS/[facility]) SUBJECTIVE History of present illness: Althea Kong is an 54-year-old female with a PMH of hypertension, obesity, MART on CPAP, anxiety and depression who is admitted to the hospital with COVID- 19 pneumonia. The patient reports the onset of her symptoms was about 1 week back. She developed her cough with associated dyspnea and a fever up to a maximum of 104 ??F. She has had progressively worsening shortness of breath and therefore presented to the hospital where she was found to be hypoxic. She reportstan- colored sputum this morning. She reported chest discomfort from excessive coughing. No nausea, vomiting or diarrhea. No changes in her urinary habits. Review of systems: As noted in the HPI. Past medical history: Past Medical History: Diagnosis Date ??? Allergies ??? Anxiety ??? Depression ??? Hypertension ??? Neuropathy ??? Obesity ??? Sleep apnea ??? Urinary bladder incontinence Surgical history: Past Surgical History: Procedure Laterality Date ??? SECTION, CLASSIC ??? HYSTERECTOMY Personal and social history: Social History Tobacco Use ??? Smoking status: Never Smoker ??? Smokeless tobacco: Never Used Substance Use Topics ??? Alcohol use: Never Frequency: Never Family history: Family History Problem Relation Name Age of Onset ??? Heart Disease Mother ??? Kidney Disease Mother ??? Heart Disease Father ??? Diabetes Brother Travel/ exposures/s: Allergies: No Known Allergies Medications: No current facility-administered medications on file prior [...] by mouth 2 (two) times a day. Current Facility-Administered Medications: ??? acetaminophen (TYLENOL) tablet 650 mg, 650 mg, Oral, Q6H PRN, Isela Fitzpatrick MD, 650 mg at 03/01/20 1457 ??? albuterol sulfate HFA 108 (90 Base) MCG/ACT inhaler 2 puff, 2 puff, Inhalation, Q4H PRN, Isela Fitzpatrick MD ??? aspirin chewable tablet 81 mg, 81 mg, Oral, Daily, Isela Fitzpatrick MD, 81 mg at 03/01/20 0936 ??? atenolol (TENORMIN) tablet 100 mg, 100 mg, Oral, nightly, Isela Fitzpatrick MD, 100 mg at 02/29/208 ??? azithromycin (ZITHROMAX) 500 mg in sodium chloride 0.9 % 250 mL IVPB, 500 mg, Intravenous, Q24H, Isela Fitzpatrick MD, Stopped at 03/01/20 0253 ??? cefTRIAXone (ROCEPHIN) 1 g in sodium chloride 0.9 % 50 mL IVPB, 1 g, Intravenous, Q24H, Isela Fitzpatrick MD, Stopped at 03/01/20 0253 ??? citalopram (CeleXA) tablet 10 mg, 10 mg, Oral, Daily, Clarence iGl MD, 10 mg at 03/01/20 1208 ??? dexamethasone (DECADRON) injection 6 mg, 6 mg, Intravenous, Q12H, Clarence Gil MD ??? enoxaparin (LOVENOX) 40 MG/0.4ML syringe 40 mg, 40 mg, Subcutaneous, Q24H, 40 mg at 02/29/209 AND [COMPLETED] Place sequential compression device, , , Once AND [COMPLETED] Intermittent Pneumatic Compression Device Applied, , , Once AND Assess Sequential Compression Device (Assess skin at a minimum of every shift), , , Q Shift AND Maintain Sequential Compression Device, , , Daily AND [COMPLETED] High Risk for VTE, , , Once, Isela Fitzpatrick MD ??? famotidine (PEPCID) injection 20 mg, 20 mg, Intravenous, 2 times per day OR famotidine (PEPCID) tablet 20 mg, 20 mg, Oral, 2 times per day, Isela Fitzpatrick MD, 20 mg at 03/01/20 0936 ??? gabapentin (NEURONTIN) capsule 300 mg, 300 mg, Oral, Nightly at bedtime, Clarence Gil MD ??? guaiFENesin (ROBITUSSIN) 100 MG/5ML solution 5 mL, 5 mL, Oral, Q6H PRN, Isela Fitzpatrick MD ??? guaiFENesin ER (MUCINEX) 12 hr tablet 600 mg, 600 mg, Oral, BID, Clarence Gil MD, 600 mg at 03/01/20 1209 ??? LORazepam (ATIVAN) tablet 0.5 mg, 0.5 mg, Oral, Q6H PRN, Clarence Gil MD, 0.5 mg at 03/01/20 1457 ??? ondansetron (ZOFRAN) injection 4 mg, 4 mg, Intravenous, Q8H PRN, Isela Fitzpatrick MD ??? oxybutynin XL (DITROPAN-XL) 24 hr tablet 10 mg, 10 mg, Oral, BID, Clarence Gil MD ??? remdesivir 200 mg in sodium chloride 0.9 % 250 mL IVPB, 200 mg, Intravenous, Q24H FOLLOWED BY [START ON 03/02/2020] remdesivir 100 mg in sodium chloride 0.9 % 250 mL IVPB, 100 mg, Intravenous,Q24H, Judith Byers MD ??? Senna (SENOKOT) 8.6 MG tablet 8.6 mg, 8.6 mg, Oral, Daily PRN, Isela Fitzpatrick MD ??? sodium chloride 0.9% bolus infusion SOLN 30 mL, 30 mL, Intravenous, See Admin Instructions, Judith Byers MD OBJECTIVE Filed Vitals: 02/29/20 2121 03/01/20 0500 03/01/20 0646 03/01/20 1120 BP: 133/73 126/78 130/88 Pulse: 86 66 59 Resp: Temp: 99.1 ??F (37.3 ??C) 100.3 ??F (37.9 ??C) 100.3 ??F (37.9 ??C) TempSrc: Oral Oral SpO2: 93% 94% 93% Weight: (!) 184.9 kg (407 lb 9.6 oz) Height: Physical Exam The patient was not physically examined to limit exposure to COVID-19. ASSESSMENT AND PLAN Althea Kong is an 54-year-old female with a PMH of hypertension, obesity, MART on CPAP, anxiety and depression who is admitted to the hospital with COVID- 19 pneumonia. #COVID-19 pneumonia. ?? Infectious work-up: Respiratory PCR (02/29/2020): Positive for SARS-CoV-2. Blood culture (02/29/2020): No growth so far. Sputum culture (03/01/2020): Pending ?? Imaging: Chest x-ray (02/29/2020): Bilateral pulmonary infiltrates. ?? Procedures: PLAN/ RECOMMENDATIONS: ?? Continue azithromycin 500 mg every 24 hours and ceftriaxone 2 g IV every 24 hours for now. ?? Continue dexamethasone per primary. ?? Started remdesivir. Will treat for 5 days. 200 mg on day 1 and then 100 mg IV daily for 4 more days. ?? Continue to monitor oxygen status and inflammatory markers including CRP, LDH, ferritin, d-dimeretc. ?? If there is a worsening clinical status, will consider administering COVID-19 convalescent plasma. Thank you for the consult. LOI ID will continue to follow. Please call for questions. Judith Byers MD [facility] Infectious Diseases Fellow Pager # [phone] 03/01/2020 Teaching physician note:??Infectious Diseases Attending Physician:?? Labs and vitals reviewed. [facility] Infectious Disease Fellow/Resident note reviewed and findings verified.?? Case discussed with the Infectious Disease team documented in this encounter Nursing Notes * Jaquan Graves RN - 03/02/2020 9:40 PM CDT Patient became short of breath while lying supine for the CT chest; hence, procedure was not done. * Meron Lowe RN - 03/01/2020 10:49 AM CDT Patient lost IV access this AM. Unable to initiate new IV. New order received to have PICC line place for medications and lab draws. Patient informed of new order and verbal consent to place PICC line received verified with charge nurse Dana. documented in this encounter Plan of Treatment Not on file documented as of this encounter Procedures Procedure Name Priority Date/Time Associated Diagnosis Comments PROTHROMBIN TIME, VENOUS Routine 03/12/2020 6:25 AM CDT COMPREHENSIVE METABOLIC PANEL Routine 03/12/2020 6:25 AM CDT LDH, LACTATE DEHYDROGENASE Routine 03/12/2020 6:25 AM CDT D-DIMER, QUANTITATIVE Routine 03/12/2020 6:25 AM CDT C-REACTIVE PROTEIN Routine 03/12/2020 6: 25 AM CDT CBC W/DIFF AUTOMATED Routine 03/12/2020 6:25 AM CDT PHOSPHORUS, INORGANIC PHOSPHATE STAT 03/12/2020 6:25 AM CDT MAGNESIUM STAT 03/12/2020 6:25 AM CDT FERRITIN Routine 03/12/2020 6:25 AM CDT HC URINALYSIS AUTO W/MICRO Nurse Collected Priority 03/10/2020 11:20 AM CDT XR CHEST PORTABLE Today 03/10/2020 10: 31 AM CDT URINE BACTERIA CULTURE Nurse Collected Priority 03/10/2020 10:20 AM CDT PARTIAL THROMBOPLASTIN TIME,PTT Routine 03/10/2020 6:40 AM CDT PROTHROMBIN TIME, VENOUS Routine 03/10/2020 4:00 AM CDT COMPREHENSIVE METABOLIC PANEL Routine 03/10/2020 4:00 AM CDT LDH, LACTATE DEHYDROGENASE Routine 03/10/2020 4:00 AM CDT D-DIMER, QUANTITATIVE Routine 03/10/2020 4:00 AM CDT C-REACTIVE PROTEIN Routine 03/10/2020 4: 00 AM CDT CBC W/DIFF AUTOMATED Routine 03/10/2020 4:00 AM CDT PHOSPHORUS, INORGANIC PHOSPHATE STAT 03/10/2020 4:00 AM CDT MAGNESIUM STAT 03/10/2020 4:00 AM CDT FERRITIN Routine 03/10/2020 4:00 AM CDT PARTIAL THROMBOPLASTIN TIME,PTT TIMED 03/10/2020 12:30 AM CDT PARTIAL THROMBOPLASTIN TIME,PTT TIMED 03/09/2020 11:15 AM CDT PARTIAL THROMBOPLASTIN TIME,PTT TIMED 03/09/2020 5:00 AM CDT PROTHROMBIN TIME, VENOUS Routine 03/09/2020 5:00 AM CDT COMPREHENSIVE METABOLIC PANEL Routine 03/09/2020 5:00 AM CDT LDH, LACTATE DEHYDROGENASE Routine 03/09/2020 5:00 AM CDT D-DIMER, QUANTITATIVE Routine 03/09/2020 5:00 AM CDT C-REACTIVE PROTEIN Routine 03/09/2020 5: 00 AM CDT CBC W/DIFF AUTOMATED Routine 03/09/2020 5:00 AM CDT PHOSPHORUS, INORGANIC PHOSPHATE STAT 03/09/2020 5:00 AM CDT MAGNESIUM STAT 03/09/2020 5:00 AM CDT FERRITIN Routine 03/09/2020 5:00 AM CDT PARTIAL THROMBOPLASTIN TIME,PTT Routine 03/08/2020 11:45 PM CDT PARTIAL THROMBOPLASTIN TIME,PTT Routine 03/08/2020 3:35 PM CDT XR CHEST PORTABLE Today 03/08/2020 11: 53 AM CDT PARTIAL THROMBOPLASTIN TIME,PTT TIMED 03/08/2020 5:00 AM CDT PROTHROMBIN TIME, VENOUS Routine 03/08/2020 5:00 AM CDT COMPREHENSIVE METABOLIC PANEL Routine 03/08/2020 5:00 AM CDT LDH, LACTATE DEHYDROGENASE Routine 03/08/2020 5:00 AM CDT D-DIMER, QUANTITATIVE Routine 03/08/2020 5:00 AM CDT C-REACTIVE PROTEIN Routine 03/08/2020 5: 00 AM CDT CBC W/DIFF AUTOMATED Routine 03/08/2020 5:00 AM CDT PHOSPHORUS, INORGANIC PHOSPHATE Routine 03/08/2020 5:00 AM CDT MAGNESIUM Routine 03/08/2020 5:00 AM CDT FERRITIN Routine 03/08/2020 5:00 AM CDT PARTIAL THROMBOPLASTIN TIME,PTT Routine 03/07/2020 4:20 PM CDT PARTIAL THROMBOPLASTIN TIME,PTT TIMED 03/07/2020 5:00 AM CDT PROTHROMBIN TIME, VENOUS Routine 03/07/2020 5:00 AM CDT COMPREHENSIVE METABOLIC PANEL Routine 03/07/2020 5:00 AM CDT C-REACTIVE PROTEIN Routine 03/07/2020 5: 00 AM CDT CBC W/DIFF AUTOMATED Routine 03/07/2020 5:00 AM CDT FERRITIN Routine 03/07/2020 5:00 AM CDT PROCALCITONIN (PCT) Routine 03/06/2020 3 :05 AM CDT PROTHROMBIN TIME, VENOUS Routine 03/06/2020 3:05 AM CDT COMPREHENSIVE METABOLIC PANEL Routine 03/06/2020 3:05 AM CDT C-REACTIVE PROTEIN Routine 03/06/2020 3: 05 AM CDT CBC W/DIFF AUTOMATED Routine 03/06/2020 3:05 AM CDT FERRITIN Routine 03/06/2020 3:05 AM CDT CK (CPK) Routine 03/06/2020 3:05 AM CDT PARTIAL THROMBOPLASTIN TIME,PTT TIMED 03/05/2020 1:40 PM CDT ECG 12-LEAD Routine 03/05/2020 11:20 AM CDT XR CHEST PORTABLE Today 03/05/2020 11: 06 AM CDT PROCALCITONIN (PCT) Routine 03/05/2020 5 :00 AM CDT PROTHROMBIN TIME, VENOUS Routine 03/05/2020 5:00 AM CDT COMPREHENSIVE METABOLIC PANEL Routine 03/05/2020 5:00 AM CDT LDH, LACTATE DEHYDROGENASE Routine 03/05/2020 5:00 AM CDT D-DIMER, QUANTITATIVE Routine 03/05/2020 5:00 AM CDT C-REACTIVE PROTEIN Routine 03/05/2020 5: 00 AM CDT CBC W/DIFF AUTOMATED Routine 03/05/2020 5:00 AM CDT FERRITIN Routine 03/05/2020 5:00 AM CDT CK (CPK) Routine 03/05/2020 5:00 AM CDT PARTIAL THROMBOPLASTIN TIME,PTT TIMED 03/05/2020 1:45 AM CDT PARTIAL THROMBOPLASTIN TIME,PTT Routine 03/04/2020 5:05 PM CDT USE ECHOCARDIOGRAM W CON Routine 03/04/2020 3:45 PM CDT PARTIAL THROMBOPLASTIN TIME,PTT Routine 03/04/2020 10:00 AM CDT PROCALCITONIN (PCT) Routine 03/04/2020 4 :00 AM CDT PROTHROMBIN TIME, VENOUS Routine 03/04/2020 4:00 AM CDT COMPREHENSIVE METABOLIC PANEL Routine 03/04/2020 4:00 AM CDT LDH, LACTATE DEHYDROGENASE Routine 03/04/2020 4:00 AM CDT D-DIMER, QUANTITATIVE Routine 03/04/2020 4:00 AM CDT C-REACTIVE PROTEIN Routine 03/04/2020 4: 00 AM CDT CBC W/DIFF AUTOMATED Routine 03/04/2020 4:00 AM CDT FERRITIN Routine 03/04/2020 4:00 AM CDT CK (CPK) Routine 03/04/2020 4:00 AM CDT IR REPLACE PICC WO PORT PUMP Today 03/03/2020 6:14 PM CDT TRANSFUSE CONVALESCENT PLASMA STAT 03/03/2020 5:30 PM CDT CTA CHEST Today 03/03/2020 5:11 PM CDT CBC W/DIFF AUTOMATED Routine 03/03/2020 12:50 PM CDT ECG 12-LEAD STAT 03/03/2020 11:17 AM CDT LDH, LACTATE DEHYDROGENASE Routine 03/03/2020 11:15 AM CDT C-REACTIVE PROTEIN Routine 03/03/2020 11 :15 AM CDT FERRITIN Routine 03/03/2020 11:15 AM CDT PREPARE CONVALESCENT PLASMA FOR COVID-19 STAT 03/03/2020 11:02 AM CDT COMPREHENSIVE METABOLIC PANEL Routine 03/03/2020 9:04 AM CDT POCT GLUCOSE - WAGNER DOCKED DEVICE Routine 03/02/2020 9:07 AM CDT COMPREHENSIVE METABOLIC PANEL Routine 03/02/2020 3:50 AM CDT LDH, LACTATE DEHYDROGENASE Routine 03/02/2020 3:50 AM CDT D-DIMER, QUANTITATIVE Routine 03/02/2020 3:50 AM CDT C-REACTIVE PROTEIN Routine 03/02/2020 3: 50 AM CDT CBC W/DIFF AUTOMATED Routine 03/02/2020 3:50 AM CDT PHOSPHORUS, INORGANIC PHOSPHATE Routine 03/02/2020 3:50 AM CDT MAGNESIUM Routine 03/02/2020 3:50 AM CDT FERRITIN Routine 03/02/2020 3:50 AM CDT CK (CPK) Routine 03/02/2020 3:50 AM CDT ANTIBODY INTERPRETATION TIMED 03/01/2020 5:00 PM CDT PROCALCITONIN (PCT) Routine 03/01/2020 5:00 PM CDT TYPE & SCREEN Routine 03/01/2020 5:00 PM CDT PROTHROMBIN TIME, VENOUS STAT 03/01/2020 5:00 PM CDT COMPREHENSIVE METABOLIC PANEL Routine 03/01/2020 5:00 PM CDT BASIC METABOLIC PANEL Routine 03/01/2020 5:00 PM CDT LDH, LACTATE DEHYDROGENASE Routine 03/01/2020 5:00 PM CDT D-DIMER, QUANTITATIVE Routine 03/01/2020 5:00 PM CDT CBC W/DIFF AUTOMATED Routine 03/01/2020 5:00 PM CDT MAGNESIUM Routine 03/01/2020 5:00 PM CDT CK (CPK) Routine 03/01/2020 5:00 PM CDT IR PICC PLC GREATER 5YR Today 03/01/2020 4:04 PM CDT CULTURE RESPIRATORY W/ GRAM STAIN Nurse Collected Priority 03/01/2020 2:00 PM CDT CULTURE, BACTERIA, BLOOD Routine 02/29/2020 8:30 PM CDT FERRITIN Routine 02/29/2020 8:30 PM CDT RESPIRATORY PCR PANEL 2 Nurse Collected Priority 02/29/2020 4:28 PM CDT documented in this encounter Results * (ABNORMAL) COMPREHENSIVE METABOLIC PANEL (03/12/2020 6:25 AM CDT) SODIUM S/P/B 136 136 - 145 MMOL/L 03/12/2020 7:[address] [facility] POTASSIUM S/P/B 3.9 3.5 - 5.1 MMOL/L 03/12/2020 7:[address] [facility] CHLORIDE S/P/B 99 98 - 107 MMOL/L 03/12/2020 7:[address] [facility] CO2 27.5 21.0 - 32.0 MMOL/L 03/12/2020 7:[address] [facility] GLUCOSE 144(H) 74 - 106 MG/DL 03/12/2020 7:[address] [facility] BUN 22(H) 7 - 18 MG/DL 03/12/2020 7:[address] [facility] CREATININE S/P/B 0.83 0.55 - 1.02 MG/DL 03/12/2020 7:[address] [facility] CALCIUM S/P/B 9.7 8.5 - 10.1 MG/DL 03/12/2020 7:[address] [facility] BILIRUBIN TOTAL S/P/B 0.9 0.2 - 1.0 MG/DL 03/12/2020 7:29 AM [facility] ALKALINE PHOSPHATASE S/P/B 52 41 - 108 U/L 03/12/2020 7:[address] [facility] AST 17 15 - 37 U/L 03/12/2020 7:29 AM [facility] ALT 65(H) 13 - 56 U/L 03/12/2020 7:29 AM [facility] TOTAL PROTEIN S/P/B 8.5(H) 6.4 - 8.2 G/DL 03/12/2020 7:29 AM [facility] ALBUMIN S/P/B 4.6 3.4 - 5.0 G/DL 03/12/2020 7:29 AM [facility] ANION GAP 9.5 5.0 - 15.0 MMOL/L 03/12/2020 7:29 AM [facility] Comment:REFERENCE RANGE NOT ESTABLISHED OSMOLALITY (CALC) 288 MOSM/KG 020 7:29 AM [facility] Comment:REFERENCE RANGE NOT ESTABLISHED EGFR NON-AFR. AMER. 80(L) >90 ML/MIN/1. 73 M2 03/12/2020 7:29 AM [facility] EGFR AFR. AMER. >90 >90 ML/MIN/1. 73 M2 03/12/2020 7:29 AM [facility] GFR NOTES GFR REFERENCE S: 03/12/2020 7:29 AM [facility] Comment: THE ESTIMATED GFR IS CALCULATED [...] ml/min/1.73 m2 G5,KIDNEY FAILURE: <15 ml/min/1.73 m2 03/12/2020 6:25 AM CDT Heber Lorenzana MD LABORATORY Final Resul t [facility] [address] [place] [address], [phone] * (ABNORMAL) CBC W/DIFF AUTOMATED (03/12/2020 6:25 AM CDT) WBC 9.3 4.0 - 10.8 x10'3/uL 03/12/2020 7:[address] [facility] RBC 4.44 4.10 - 5.40 x10'6/uL 03/12/2020 7:[address] [facility] HGB 13.4 12.0 - 16.0 G/DL 03/12/2020 7:[address] [facility] HCT 42.2 36.0 - 47.0 % 03/12/2020 7:[address] [facility] MCV 95.0 78.0 - 100.0 FL 03/12/2020 7:[address] [facility] MCH 30.2 27.0 - 31.0 PG 03/12/2020 7:[address] [facility] MCHC 31.8(L) 33.0 - 36.0 G/DL 03/12/2020 7:[address] [facility] RDW 13.4 11.5 - 14.5 % 03/12/2020 7:[address] [facility] PLT 376(H) 150 - 350 x10'3/uL 03/12/2020 7:[address] [facility] MPV 11.4(H) 7.4 - 10.4 FL 03/12/2020 7:[address] [facility] ABS. NEUTROPHILS TOTAL 7.53 1.60 - 8.30 x10'3/uL 03/12/2020 7:[address] [facility] ABS. LYMPHOCYTES 1.05 0.80 - 4.70 x10'3/uL 03/12/2020 7:[address] [facility] ABS. MONOCYTES 0.61 0.00 - 1.50 x10'3/uL 03/12/2020 7:[address] [facility] ABS. EOSINOPHILS 0.00 0.00 - 0.40 x10'3/uL 03/12/2020 7:[address] [facility] ABS. BASOPHILS 0.01 0.00 - 0.20 x10'3/uL 03/12/2020 7:[address] [facility] ABS. IMMATURE GRANULOCYTES 0.14(H) 0.00 - 0.03 x10'3/uL 03/12/2020 7:[address] [facility] ABS. NUCLEATED RBC'S 0.00 0.0 x10'3/uL 03/12/2020 7:[address] [facility] 03/12/2020 6:25 AM CDT Heber Lorenzana MD LABORATORY Final Resul t [facility] [address] [place] [address], [phone] * PHOSPHORUS, INORGANIC PHOSPHATE (03/12/2020 6:25 AM CDT) PHOSPHORUS 4.6 2.5 - 4.9 MG/DL 03/12/2020 7:[address] [facility] 03/12/2020 6:25 AM CDT us Shelton Ospina MD LABORATORY Final Result Performing Organization Address [facility] [address] [facility] [facility] Co de Phone Number [facility] [address] [place] [address], [place] [phone] * (ABNORMAL) MAGNESIUM (03/12/2020 6:25 AM CDT) MAGNESIUM 2.9(H) 1.6 - 2.6 MG/DL 03/12/2020 7:[address] [facility] 03/12/2020 6:25 AM CDT us Shelton Ospina MD LABORATORY Final Result Performing Organization Address [facility] Phone Number [facility] [address] [place] [place] [id number], [place] [phone] * C-REACTIVE PROTEIN (03/12/2020 6:25 AM CDT) C-REACTIVE PROTEIN <0.29 <0.80 mg/dL 03/12/2020 7:[address] [facility] 03/12/2020 6:25 AM CDT us Shelton Ospina MD LABORATORY Final Result Performing Organization Address [facility] Co de Phone Number [facility] [address] [place] [address], [place] [phone] * LDH, LACTATE DEHYDROGENASE (03/12/2020 6:25 AM CDT) LDH 231 84 - 246 UNITS/L 03/12/2020 7:[address] [facility] 03/12/2020 6:25 AM CDT us Shelton Ospina MD LABORATORY Final Result Performing Organization Address [facility] Co de Phone Number [facility] [address] [place] [address], [phone] * (ABNORMAL) FERRITIN (03/12/2020 6:25 AM CDT) FERRITIN 315.7(H) 8.0 - 252.0 NG/ML 03/12/2020 7:[address] [facility] 03/12/2020 6:25 AM CDT us Shelton Ospina MD LABORATORY Final Result Performing Organization Address [facility] de Phone Number [facility] [address] [place] [address], [phone] * (ABNORMAL) D-DIMER, QUANTITATIVE (03/12/2020 6:25 AM CDT) Pathologist [facility] D-DIMER 773(H) <500 ng{FEU}/m L 03/12/2020 7:[address] [facility] EXCLUSION STATEMENT CUT-OFF FOR EXCLUSION OF DEEP VEIN THROMBOSIS AND PULMONARY EMBOLISM IS <500 NG/ML FEU. 03/12/2020 12:[address] [facility] 03/12/2020 6:25 AM CDT us Shelton Ospina MD LABORATORY Final Result Performing Organization Address [facility] de Phone Number [facility] [address] [place] [address], [phone] * PROTIME/INR, VENOUS (03/12/2020 6:25 AM CDT) PROTIME 11.9 10.2 - 12.9 SEC 03/12/2020 7:[address] [facility] INR 1.0 0.9 - 1.1 03/12/2020 7:[address] [facility] 03/12/2020 6:25 AM CDT Jayda Patel LABORATORY Final Result [facility] [address] [place] [address], [place] [phone] * (ABNORMAL) URINALYSIS (03/10/2020 11:20 AM CDT) COLOR (U) YELLOW 03/10/2020 11:[address] [facility] TRANSPARENCY SLIGHTLY CLOUDY 03/10/2020 11:[address] [facility] SPECIFIC GRAVITY (U) 1.025 1.002 - 1.035 03/10/2020 11:[address] [facility] U PH 5.0 5 - 8 03/10/2020 11:[address] [facility] PROTEIN (U) 30(A) NEGATIVE 03/10/2020 11:[address] [facility] URINE GLUCOSE NEGATIVE NEGATIVE MG/DL 03/10/2020 11:[address] [facility] KETONES MG/DL (U) NEGATIVE NEGATIVE 03/10/2020 11:[address] [facility] BILIRUBIN (U) NEGATIVE NEGATIVE 03/10/2020 11:[address] [facility] BLOOD (U) LARGE(A) NEGATIVE 03/10/2020 11:[address] [facility] NITRITES NEGATIVE NEGATIVE 03/10/2020 11:[address] [facility] UROBILINOGEN NORMAL 0 - 1 EU/DL 03/10/2020 11:[address] [facility] LEUKOCYTES (U) TRACE(A) NEGATIVE 03/10/2020 11:[address] [facility] RBC/HPF >182(H) 0 - 3 /HPF 03/10/2020 11:[address] [facility] Comment:PLEASE CALL THE LAB WITHIN 2 HOURS IF ACTUAL NUMBER OF CELLS IS REQUIRED. WBC/HPF 9(H) 0 - 6 /HPF 03/10/2020 11:[address] [facility] BACTERIA (U) NONE /HPF 03/10/2020 11:[address] [facility] SQUAMOUS EPITHELIALS 2 03/10/2020 11:[address] [facility] URINE SPECIMEN OBTAINED VIA [employer]WELL[employer] URINARY CATHETER / Unknown 03/10/2020 11:20 AM CDT Heber Lorenzana MD URINE ORDERABLES Final Resu lt [facility] [address] [place] [address], [id number] * XR CHEST PORTABLE (03/10/2020 10:31 AM CDT) Anatomical Region Laterality Modality Chest Radiographic Kathleen ging 03/10/2020 11:2 0 AM CDT Impressions 03/10/2020 11:20 AM CDT IMPRESSION: Stable chest Interpreted By: Isaiah Castro MD, 03/10/2020 11:20 AM Narrative 03/10/2020 11:20 AM CDT SINGLE VIEW OF THE CHEST Clinical history: Fever Comparison: March 08, 2020 A single view of the chest demonstrates the cardiac silhouette and mediastinal contours to be within normal limits for size and appear stable. The pulmonary vessels are normally distributed. Minimal patchy groundglass opacities are noted throughout the lungs. These have not changed significantly in the interval. No consolidation or pleural fluid is seen Procedure Note Isaiah Castro MD - 03/10/2020 SINGLE VIEW OF THE CHEST Clinical history: Fever Comparison: March 08, 2020 A single view of the chest demonstrates the cardiac silhouette and mediastinal contours to be within normal limits for size and appearstable. The pulmonary vessels are normally distributed. Minimal patchygroundglass opacities are noted throughout the lungs. These have not changed significantly in the interval. No consolidation or pleural fluid is seen IMPRESSION: Stable chest Interpreted By: Isaiah Castro MD, 03/10/2020 11:20 AM Heber Lorenzana MD GENERAL IMAGING Final Resul t * CULTURE, URINE (03/10/2020 10:20 AM CDT) SPEC DESCRIPTION URINE AGUILAR CATH 03/10/2020 11:[address] [facility] SPECIAL REQUESTS NO SPECIAL REQUEST 03/10/2020 11:[address] [facility] CULTURE RESULT >25,000 TO 50,000 CFU/mL ENTEROCOCCUS FAECALIS 03/12/2020 9:[address] [facility] URINE SPECIMEN OBTAINED VIA [employer] URINARY CATHETER / Unknown 03/10/2020 10:20 AM CDT 03/10/2020 12:04 PM CDT Narrative Organism Antibiotic Method Susceptibility Enterococcus faecalis AMPICILLIN CHAVO (VITEK) Sensitive Enterococcus faecalis NITROFURANTOIN CHAVO (VITEK) Sensitive Enterococcus faecalis GENT. SYNERGY SCREEN CHAVO (VITEK) Sensitive Enterococcus faecalis LINEZOLID CHAVO (VITEK) Sensitive Enterococcus faecalis PENICILLIN G CHAVO (VITEK) Sensitive Enterococcus faecalis STR. SYNERGY SCR CHAVO (VITEK) Sensitive Enterococcus faecalis TETRACYCLINE CHAVO (VITEK) Resistant Enterococcus faecalis TIGECYCLINE CHAVO (VITEK) Sensitive Enterococcus faecalis VANCOMYCIN CHAVO (VITEK) Sensitive Heber Lorenzana MD [facility] Final Result [facility] [address] [place] [address], [phone] * (ABNORMAL) PARTIAL THROMBOPLASTIN TIME,PTT (03/10/2020 6:40 AM CDT) PTT 97.0(H) 25.1 - 36.5 SEC 03/10/2020 8:[address] [facility] 03/10/2020 6:40 AM CDT us Heber Lorenzana MD LABORATORY Final Resul t [facility] [address] [place] [address], [phone] * (ABNORMAL) COMPREHENSIVE METABOLIC PANEL (03/10/2020 4:00 AM CDT) [facility] SODIUM S/P/B 135(L) 136 - 145 MMOL/L 03/10/2020 6:[address] [facility] POTASSIUM S/P/B 3.7 3.5 - 5.1 MMOL/L 03/10/2020 6:[address] [facility] CHLORIDE S/P/B 98 98 - 107 MMOL/L 03/10/2020 6:[address] [facility] CO2 27.8 21.0 - 32.0 MMOL/L 03/10/2020 6:[address] [facility] GLUCOSE 142(H) 74 - 106 MG/DL 03/10/2020 6:[address] [facility] BUN 28(H) 7 - 18 MG/DL 03/10/2020 6:[address] [facility] CREATININE S/P/B 0.85 0.55 - 1.02 MG/DL 03/10/2020 6:[address] [facility] CALCIUM S/P/B 9.6 8.5 - 10.1 MG/DL 03/10/2020 6:[address] [facility] BILIRUBIN TOTAL S/P/B 1.2(H) 0.2 - 1.0 MG/DL 03/10/2020 6:[address] [facility] ALKALINE PHOSPHATASE S/P/B 53 41 - 108 U/L 03/10/2020 6:[address] [facility] AST 32 15 - 37 U/L 03/10/2020 6:[address] [facility] ALT 80(H) 13 - 56 U/L 03/10/2020 6:[address] [facility] TOTAL PROTEIN S/P/B 8.7(H) 6.4 - 8.2 G/DL 03/10/2020 6:[address] [facility] ALBUMIN S/P/B 4.8 3.4 - 5.0 G/DL 03/10/2020 6:[address] [facility] ANION GAP 9.2 5.0 - 15.0 MMOL/L 03/10/2020 6:[address] [facility] Comment:REFERENCE RANGE NOT ESTABLISHED OSMOLALITY (CALC) 288 MOSM/KG 020 6:[address] [facility] Comment:REFERENCE RANGE NOT ESTABLISHED EGFR NON-AFR. AMER. 78(L) >90 ML/MIN/1. 73 M2 03/10/2020 6:[address] [facility] EGFR AFR. AMER. >90 >90 ML/MIN/1. 73 M2 03/10/2020 6:[address] [facility] GFR NOTES GFR REFERENCE S: 03/10/2020 6:[address] [facility] Comment: THE ESTIMATED GFR IS CALCULATED [...] ml/min/1.73 m2 G5,KIDNEY FAILURE: <15 ml/min/1.73 m2 03/10/2020 4:00 AM CDT Shelton Ospina MD LABORATORY Final Result [facility] [address] [place] [address], [phone] * (ABNORMAL) CBC W/DIFF AUTOMATED (03/10/2020 4:00 AM CDT) [facility] WBC 11.0(H) 4.0 - 10.8 x10'3/uL 03/10/2020 6:[address] [facility] RBC 4.38 4.10 - 5.40 x10'6/uL 03/10/2020 6:[address] [facility] HGB 13.3 12.0 - 16.0 G/DL 03/10/2020 6:[address] [facility] HCT 41.0 36.0 - 47.0 % 03/10/2020 6:[address] [facility] MCV 93.6 78.0 - 100.0 FL 03/10/2020 6:[address] [facility] MCH 30.4 27.0 - 31.0 PG 03/10/2020 6:[address] [facility] MCHC 32.4(L) 33.0 - 36.0 G/DL 03/10/2020 6:[address] [facility] RDW 13.2 11.5 - 14.5 % 03/10/2020 6:[address] [facility] PLT 406(H) 150 - 350 x10'3/uL 03/10/2020 6:[address] [facility] MPV 11.7(H) 7.4 - 10.4 FL 03/10/2020 6:[address] [facility] ABS. NEUTROPHILS TOTAL 8.76(H) 1.60 - 8.30 x10'3/uL 03/10/2020 6:[address] [facility] ABS. LYMPHOCYTES 1.29 0.80 - 4.70 x10'3/uL 03/10/2020 6:[address] [facility] ABS. MONOCYTES 0.74 0.00 - 1.50 x10'3/uL 03/10/2020 6:[address] [facility] ABS. EOSINOPHILS 0.00 0.00 - 0.40 x10'3/uL 03/10/2020 6:[address] [facility] ABS. BASOPHILS 0.03 0.00 - 0.20 x10'3/uL 03/10/2020 6:[address] [facility] ABS. IMMATURE GRANULOCYTES 0.13(H) 0.00 - 0.03 x10'3/uL 03/10/2020 6:[address] [facility] ABS. NUCLEATED RBC'S 0.00 0.0 x10'3/uL 03/10/2020 6:[address] [facility] 03/10/2020 4:00 AM CDT us Shelton Ospina MD LABORATORY Final Result Performing Organization Address City/[facility]/ZIP Co de Phone Number [facility] [address] [place] [address], [phone] * PHOSPHORUS, INORGANIC PHOSPHATE (03/10/2020 4:00 AM CDT) PHOSPHORUS 3.1 2.5 - 4.9 MG/DL 03/10/2020 6:[address] [facility] 03/10/2020 4:00 AM CDT us Shelton Ospina MD LABORATORY Final Result [facility] [address] [place] [address], [id number] * (ABNORMAL) MAGNESIUM (03/10/2020 4:00 AM CDT) MAGNESIUM 2.9(H) 1.6 - 2.6 MG/DL 03/10/2020 6:[address] [facility] 03/10/2020 4:00 AM CDT us Shelton Ospina MD LABORATORY Final Result Performing Organization Address [facility] Co de Phone Number [facility] [address] [place] [address], [place] [phone] * C-REACTIVE PROTEIN (03/10/2020 4:00 AM CDT) C-REACTIVE PROTEIN <0.29 <0.80 mg/dL 03/10/2020 6:[address] [facility] 03/10/2020 4:00 AM CDT us Shelton Ospina MD LABORATORY Final Result Performing Organization Address [facility] de Phone Number [facility] [address] [place] [address], [phone] * (ABNORMAL) LDH, LACTATE DEHYDROGENASE (03/10/2020 4:00 AM CDT) LDH 260(H) 84 - 246 UNITS/L 03/10/2020 6:[address] [facility] 03/10/2020 4:00 AM CDT us Shelton Ospina MD LABORATORY Final Result Performing Organization Address [facility] de Phone Number [facility] [address] [place] [address], [place] [phone] * (ABNORMAL) FERRITIN (03/10/2020 4:00 AM CDT) FERRITIN 382.6(H) 8.0 - 252.0 NG/ML 03/10/2020 6:[address] [facility] 03/10/2020 4:00 AM CDT us Shelton Ospina MD LABORATORY Final Result Performing Organization Address [facility] Co de Phone Number [facility] [address] [place] [address], [phone] * (ABNORMAL) D-DIMER, QUANTITATIVE (03/10/2020 4:00 AM CDT) [facility] D-DIMER 1,158(H) <500 ng{FEU}/m L 03/10/2020 7:[address] [facility] EXCLUSION STATEMENT CUT-OFF FOR EXCLUSION OF DEEP VEIN THROMBOSIS AND PULMONARY EMBOLISM IS <500 NG/ML FEU. 03/10/2020 12:[address] [facility] 03/10/2020 4:00 AM CDT us Shelton Ospina MD LABORATORY Final Result Performing Organization Address [facility] Co de Phone Number [facility] [address] [place] [address], [place] [phone] * (ABNORMAL) PROTIME/INR, VENOUS (03/10/2020 4:00 AM CDT) [facility] PROTIME 13.7(H) 10.2 - 12.9 SEC 03/10/2020 6:[address] [facility] INR 1.2(H) 0.9 - 1.1 03/10/2020 6:[address] [facility] 03/10/2020 4:00 AM CDT us Jayda Patel DO LABORATORY Final Result Performing Organization Address [facility] Co de Phone Number [facility] [address] [place] [address], [place] [phone] * (ABNORMAL) PARTIAL THROMBOPLASTIN TIME,PTT (03/10/2020 12:30 AM CDT) [facility] PTT 97.1(H) 25.1 - 36.5 SEC 03/10/2020 1:[address] [facility] 03/10/2020 12:3 0 AM CDT us Heber Lorenzana MD LABORATORY Final Resul t Performing Organization Address [facility] Co de Phone Number [facility] [address] [place] [address], [phone] * (ABNORMAL) PARTIAL THROMBOPLASTIN TIME,PTT (03/09/2020 11:15 AM CDT) PTT 21.5(L) 25.1 - 36.5 SEC 03/09/2020 1:[address] [facility] 03/09/2020 11:1 5 AM CDT us Shelton Ospina MD LABORATORY Final Result Performing Organization Address [facility] Co de Phone Number [facility] [address] [place] [address], [phone] * (ABNORMAL) PARTIAL THROMBOPLASTIN TIME,PTT (03/09/2020 5:00 AM CDT) PTT 43.2(H) 25.1 - 36.5 SEC 03/09/2020 6:[address] [facility] 03/09/2020 5:00 AM CDT us Shelton Ospina MD LABORATORY Final Result Performing Organization Address [facility] Co de Phone Number [facility] [address] [place] [address], [phone] * (ABNORMAL) COMPREHENSIVE METABOLIC PANEL (03/09/2020 5:00 AM CDT) Pathologist [facility] SODIUM S/P/B 135(L) 136 - 145 MMOL/L 03/09/2020 6:[address] [facility] POTASSIUM S/P/B 3.1(L) 3.5 - 5.1 MMOL/L 03/09/2020 6:[address] [facility] CHLORIDE S/P/B 97(L) 98 - 107 MMOL/L 03/09/2020 6:[address] [facility] CO2 32.0 21.0 - 32.0 MMOL/L 03/09/2020 6:[address] [facility] GLUCOSE 141(H) 74 - 106 MG/DL 03/09/2020 6:[address] [facility] BUN 24(H) 7 - 18 MG/DL 03/09/2020 6:[address] [facility] CREATININE S/P/B 0.70 0.55 - 1.02 MG/DL 03/09/2020 6:[address] [facility] CALCIUM S/P/B 9.4 8.5 - 10.1 MG/DL 03/09/2020 6:[address] [facility] BILIRUBIN TOTAL S/P/B 1.0 0.2 - 1.0 MG/DL 03/09/2020 6:[address] [facility] ALKALINE PHOSPHATASE S/P/B 52 41 - 108 U/L 03/09/2020 6:[address] [facility] AST 31 15 - 37 U/L 03/09/2020 6:[address] [facility] ALT 77(H) 13 - 56 U/L 03/09/2020 6:[address] [facility] TOTAL PROTEIN S/P/B 8.6(H) 6.4 - 8.2 G/DL 03/09/2020 6:[address] [facility] ALBUMIN S/P/B 4.7 3.4 - 5.0 G/DL 03/09/2020 6:[address] [facility] ANION GAP 6.0 5.0 - 15.0 MMOL/L 03/09/2020 6:[address] [facility] Comment:REFERENCE RANGE NOT ESTABLISHED OSMOLALITY (CALC) 286 MOSM/KG 020 6:[address] [facility] Comment:REFERENCE RANGE NOT ESTABLISHED EGFR NON-AFR. AMER. >90 >90 ML/MIN/1. 73 M2 03/09/2020 6:[address] [facility] EGFR AFR. AMER. >90 >90 ML/MIN/1. 73 M2 03/09/2020 6:[address] [facility] GFR NOTES GFR REFERENCE S: 03/09/2020 6:[address] [facility] Comment: THE ESTIMATED GFR IS CALCULATED [...] ml/min/1.73 m2 G5,KIDNEY FAILURE: <15 ml/min/1.73 m2 03/09/2020 5:00 AM CDT Shelton Ospina MD LABORATORY Final Result [facility] [address] [place] [address], [phone] * (ABNORMAL) CBC W/DIFF AUTOMATED (03/09/2020 5:00 AM CDT) WBC 10.9(H) 4.0 - 10.8 x10'3/uL 03/09/2020 5:[address] [facility] RBC 4.21 4.10 - 5.40 x10'6/uL 03/09/2020 5:[address] [facility] HGB 12.6 12.0 - 16.0 G/DL 03/09/2020 5:[address] [facility] HCT 38.6 36.0 - 47.0 % 03/09/2020 5:[address] [facility] MCV 91.7 78.0 - 100.0 FL 03/09/2020 5:[address] [facility] MCH 29.9 27.0 - 31.0 PG 03/09/2020 5:[address] [facility] MCHC 32.6(L) 33.0 - 36.0 G/DL 03/09/2020 5:[address] [facility] RDW 13.3 11.5 - 14.5 % 03/09/2020 5:[address] [facility] PLT 401(H) 150 - 350 x10'3/uL 03/09/2020 5:[address] [facility] MPV 11.6(H) 7.4 - 10.4 FL 03/09/2020 5:[address] [facility] ABS. NEUTROPHILS TOTAL 8.38(H) 1.60 - 8.30 x10'3/uL 03/09/2020 5:[address] [facility] ABS. LYMPHOCYTES 1.43 0.80 - 4.70 x10'3/uL 03/09/2020 5:[address] [facility] ABS. MONOCYTES 0.84 0.00 - 1.50 x10'3/uL 03/09/2020 5:[address] [facility] ABS. EOSINOPHILS 0.01 0.00 - 0.40 x10'3/uL 03/09/2020 5:[address] [facility] ABS. BASOPHILS 0.02 0.00 - 0.20 x10'3/uL 03/09/2020 5:[address] [facility] ABS. IMMATURE GRANULOCYTES 0.20(H) 0.00 - 0.03 x10'3/uL 03/09/2020 5:[address] [facility] ABS. NUCLEATED RBC'S 0.00 0.0 x10'3/uL 03/09/2020 5:[address] [facility] 03/09/2020 5:00 AM CDT us Shelton Ospina MD LABORATORY Final Result Performing Organization Address [facility] Co de Phone Number [facility] [address] [place] [address], [phone] * PHOSPHORUS, INORGANIC PHOSPHATE (03/09/2020 5:00 AM CDT) PHOSPHORUS 4.2 2.5 - 4.9 MG/DL 03/09/2020 6:[address] [facility] 03/09/2020 5:00 AM CDT us Shelton Ospina MD LABORATORY Final Result Performing Organization Address [facility] de Phone Number [facility] [address] [place] [address], [place] [phone] * (ABNORMAL) MAGNESIUM (03/09/2020 5:00 AM CDT) MAGNESIUM 2.9(H) 1.6 - 2.6 MG/DL 03/09/2020 6:[address] [facility] 03/09/2020 5:00 AM CDT us Shelton Ospina MD LABORATORY Final Result Performing Organization Address [facility] de Phone Number [facility] [address] [place] [id number], [place] [phone] * C-REACTIVE PROTEIN (03/09/2020 5:00 AM CDT) C-REACTIVE PROTEIN <0.29 <0.80 mg/dL 03/09/2020 6:[address] [facility] 03/09/2020 5:00 AM CDT us Shelton Ospina MD LABORATORY Final Result Performing Organization Address [facility] de Phone Number [facility] [address] [place] [address], [phone] * (ABNORMAL) LDH, LACTATE DEHYDROGENASE (03/09/2020 5:00 AM CDT) LDH 255(H) 84 - 246 UNITS/L 03/09/2020 6:[address] [facility] 03/09/2020 5:00 AM CDT us Shelton Ospina MD LABORATORY Final Result Performing Organization Address [facility] de Phone Number [facility] [address] [place] [address], [place] [phone] [id number] * (ABNORMAL) FERRITIN (03/09/2020 5:00 AM CDT) FERRITIN 350.3(H) 8.0 - 252.0 NG/ML 03/09/2020 6:[address] [facility] 03/09/2020 5:00 AM CDT us Shelton Ospina MD LABORATORY Final Result Performing Organization Address [facility] de Phone Number [facility] [address] [place] [address], [id number] * (ABNORMAL) D-DIMER, QUANTITATIVE (03/09/2020 5:00 AM CDT) D-DIMER 1,173(H) <500 ng{FEU}/m L 03/09/2020 6:[address] [facility] EXCLUSION STATEMENT CUT-OFF FOR EXCLUSION OF DEEP VEIN THROMBOSIS AND PULMONARY EMBOLISM IS <500 NG/ML FEU. 03/09/2020 12:[address] [facility] 03/09/2020 5:00 AM CDT Shelton Ospina MD LABORATORY Final Result Performing Organization Address [facility] [address]/[facility] Co de Phone Number [facility] [address] [place] [address], [id number] * (ABNORMAL) PROTIME/INR, VENOUS (03/09/2020 5:00 AM CDT) PROTIME 13.3(H) 10.2 - 12.9 SEC 03/09/2020 6:[address] [facility] INR 1.2(H) 0.9 - 1.1 03/09/2020 6:[address] [facility] 03/09/2020 5:00 AM CDT Jayda Patel DO LABORATORY Final Result Performing Organization Address [facility] de Phone Number [facility] [address] [place] [address], [id number] * (ABNORMAL) PARTIAL THROMBOPLASTIN TIME,PTT (03/08/2020 11:45 PM CDT) PTT >200.0(HH) 25.1 - 36.5 SEC 03/09/2020 2:[address] [facility] Comment: CRITICAL RESULT, SPECIMEN DATE, TIME WERE READ BACK BY KYUNG WHITEHEAD @ [id number] 03.09.20 BY BRYCE 03/08/2020 11:4 5 PM CDT Shelton Ospina MD LABORATORY Final Result Performing Organization Address [facility] [address]/[facility] de Phone Number [facility] [address] [place] [address], [place] [phone] * PARTIAL THROMBOPLASTIN TIME,PTT (03/08/2020 3:35 PM CDT) PTT 28.2 25.1 - 36.5 SEC 03/08/2020 4:[address] [facility] 03/08/2020 3:35 PM CDT us Shelton Ospina MD LABORATORY Final Result [facility] [address] [place] [address], [id number] * XR CHEST PORTABLE (03/08/2020 11:53 AM CDT) Anatomical Region Laterality Modality Chest Radiographic Kathleen ging 03/08/2020 2:02 PM CDT Impressions 03/08/2020 2:02 PM CDT IMPRESSION: Improving chest Interpreted By: Isaiah Castro MD, 03/08/2020 2:02 PM Narrative 03/08/2020 2:02 PM CDT SINGLE VIEW OF THE CHEST Clinical history: Hypoxia Comparison: March 05, 2020 A single view of the chest demonstrates mild cardiomegaly which is stable. Patchy bilateral groundglass opacities throughout the lungs are slightly improved in the interval. No airspace consolidation is seen. No pleural fluid is noted Procedure Note Isaiah Castro MD - 03/08/2020 SINGLE VIEW OF THE CHEST Clinical history: Hypoxia Comparison: March 05, 2020 A single view of the chest demonstrates mild cardiomegaly which isstable. Patchy bilateral groundglass opacities throughout the lungs are slightly improved in the interval. No airspace consolidation is seen. No pleural fluid is noted IMPRESSION: Improving chest Interpreted By: Isaiah Castro MD, 03/08/2020 2:02 PM us Shelton Ospina MD GENERAL IMAGING Final Result * PHOSPHORUS, INORGANIC PHOSPHATE (03/08/2020 5:00 AM CDT) PHOSPHORUS 4.8 2.5 - 4.9 MG/DL 03/08/2020 7:[address] [facility] 03/08/2020 5:00 AM CDT us Shelton Ospina MD LABORATORY Final Result Performing Organization Address City/[facility] [address] [facility]/ZIP Co de Phone Number [facility] [address] [place] [address], [place] [phone] * (ABNORMAL) MAGNESIUM (03/08/2020 5:00 AM CDT) MAGNESIUM 2.7(H) 1.6 - 2.6 MG/DL 03/08/2020 7:[address] [facility] 03/08/2020 5:0 0 AM CDT us Shelton Ospina MD LABORATORY Final Result Performing Organization Address [facility] [address] [facility] Co de Phone Number [facility] [address] [place] [address], [place] [phone] * (ABNORMAL) LDH, LACTATE DEHYDROGENASE (03/08/2020 5:00 AM CDT) LDH 301(H) 84 - 246 UNITS/L 03/08/2020 7:[address] [facility] 03/08/2020 5:00 AM CDT us Shelton Ospina MD LABORATORY Final Result Performing Organization Address City/[facility] [address] [facility] Co de Phone Number [facility] [address] [place] [address], [place] [phone] * (ABNORMAL) FERRITIN (03/08/2020 5:00 AM CDT) FERRITIN 299.3(H) 8.0 - 252.0 NG/ML 03/08/2020 7:[address] [facility] 03/08/2020 5:00 AM CDT us Shelton Ospina MD LABORATORY Final Result Performing Organization Address [facility] Co de Phone Number [facility] [address] [place] [address], [phone] * C-REACTIVE PROTEIN (03/08/2020 5:00 AM CDT) C-REACTIVE PROTEIN <0.29 <0.80 mg/dL 03/08/2020 7:[address] [facility] 03/08/2020 5:00 AM CDT us Shelton Ospina MD LABORATORY Final Result Performing Organization Address [facility] de Phone Number [facility] [address] [place] [address], [phone] * PARTIAL THROMBOPLASTIN TIME,PTT (03/08/2020 5:00 AM CDT) PTT 34.7 25.1 - 36.5 SEC 03/08/2020 6:[address] [facility] 03/08/2020 5:00 AM CDT us Shelton Ospina MD LABORATORY Final Result Performing Organization Address [facility] [address] [facility] de Phone Number [facility] [address] [place] [address], [phone] * (ABNORMAL) COMPREHENSIVE METABOLIC PANEL (03/08/2020 5:00 AM CDT) SODIUM S/P/B 136 136 - 145 MMOL/L 03/08/2020 7:[address] [facility] POTASSIUM S/P/B 3.9 3.5 - 5.1 MMOL/L 03/08/2020 7:[address] [facility] CHLORIDE S/P/B 99 98 - 107 MMOL/L 03/08/2020 7:[address] [facility] CO2 31.1 21.0 - 32.0 MMOL/L 03/08/2020 7:[address] [facility] GLUCOSE 136(H) 74 - 106 MG/DL 03/08/2020 7:[address] [facility] BUN 23(H) 7 - 18 MG/DL 03/08/2020 7:[address] [facility] CREATININE S/P/B 0.73 0.55 - 1.02 MG/DL 03/08/2020 7:[address] [facility] CALCIUM S/P/B 8.8 8.5 - 10.1 MG/DL 03/08/2020 7:[address] [facility] BILIRUBIN TOTAL S/P/B 1.0 0.2 - 1.0 MG/DL 03/08/2020 7:[address] [facility] ALKALINE PHOSPHATASE S/P/B 51 41 - 108 U/L 03/08/2020 7:07 AM [facility] AST 42(H) 15 - 37 U/L 03/08/2020 7:07 AM [facility] ALT 76(H) 13 - 56 U/L 03/08/2020 7:[address] [facility] TOTAL PROTEIN S/P/B 8.1 6.4 - 8.2 G/DL 03/08/2020 7:[address] [facility] ALBUMIN S/P/B 4.1 3.4 - 5.0 G/DL 03/08/2020 7:[address] [facility] ANION GAP 5.9 5.0 - 15.0 MMOL/L 03/08/2020 7:[address] [facility] Comment:REFERENCE RANGE NOT ESTABLISHED OSMOLALITY (CALC) 288 MOSM/KG 020 7:[address] [facility] Comment:REFERENCE RANGE NOT ESTABLISHED EGFR NON-AFR. AMER. >90 >90 ML/MIN/1. 73 M2 03/08/2020 7:[address] [facility] EGFR AFR. AMER. >90 >90 ML/MIN/1. 73 M2 03/08/2020 7:[address] [facility] GFR NOTES GFR REFERENCE S: 03/08/2020 7:[address] [facility] Comment: THE ESTIMATED GFR IS CALCULATED [...] ml/min/1.73 m2 G5,KIDNEY FAILURE: <15 ml/min/1.73 m2 03/08/2020 5:00 AM CDT Shelton Ospina MD LABORATORY Final Result [facility] [address] [place] [phone], [id number] * (ABNORMAL) CBC W/DIFF AUTOMATED (03/08/2020 5:00 AM CDT) WBC 11.8(H) 4.0 - 10.8 x10'3/uL 03/08/2020 6:[address] [facility] RBC 3.99(L) 4.10 - 5.40 x10'6/uL 03/08/2020 6:[address] [facility] HGB 12.0 12.0 - 16.0 G/DL 03/08/2020 6:[address] [facility] HCT 36.9 36.0 - 47.0 % 03/08/2020 6:[address] [facility] MCV 92.5 78.0 - 100.0 FL 03/08/2020 6:[address] [facility] MCH 30.1 27.0 - 31.0 PG 03/08/2020 6:[address] [facility] MCHC 32.5(L) 33.0 - 36.0 G/DL 03/08/2020 6:[address] [facility] RDW 13.2 11.5 - 14.5 % 03/08/2020 6:[address] [facility] PLT 406(H) 150 - 350 x10'3/uL 03/08/2020 6:[address] [facility] MPV 11.1(H) 7.4 - 10.4 FL 03/08/2020 6:[address] [facility] ABS. NEUTROPHILS TOTAL 9.38(H) 1.60 - 8.30 x10'3/uL 03/08/2020 6:[address] [facility] ABS. LYMPHOCYTES 1.34 0.80 - 4.70 x10'3/uL 03/08/2020 6:[address] [facility] ABS. MONOCYTES 0.78 0.00 - 1.50 x10'3/uL 03/08/2020 6:[address] [facility] ABS. EOSINOPHILS 0.00 0.00 - 0.40 x10'3/uL 03/08/2020 6:[address] [facility] ABS. BASOPHILS 0.02 0.00 - 0.20 x10'3/uL 03/08/2020 6:[address] [facility] ABS. IMMATURE GRANULOCYTES 0.29(H) 0.00 - 0.03 x10'3/uL 03/08/2020 6:[address] [facility] ABS. NUCLEATED RBC'S 0.00 0.0 x10'3/uL 03/08/2020 6:[address] [facility] 03/08/2020 5:00 AM CDT us Shelton Ospina MD LABORATORY Final Result Performing Organization Address [facility] de Phone Number [facility] [address] [place] [address], [id number] * (ABNORMAL) D-DIMER, QUANTITATIVE (03/08/2020 5:00 AM CDT) D-DIMER 1,231(H) <500 ng{FEU}/m L 03/08/2020 6:[address] [facility] EXCLUSION STATEMENT CUT-OFF FOR EXCLUSION OF DEEP VEIN THROMBOSIS AND PULMONARY EMBOLISM IS <500 NG/ML FEU. 03/08/2020 12:[address] [facility] 03/08/2020 5:00 AM CDT us Shelton Ospina MD LABORATORY Final Result Performing Organization Address [facility] de Phone Number [facility] [address] [place] [address], [phone] * (ABNORMAL) PROTIME/INR, VENOUS (03/08/2020 5:00 AM CDT) PROTIME 13.0(H) 10.2 - 12.9 SEC 03/08/2020 6:[address] [facility] INR 1.1 0.9 - 1.1 03/08/2020 6:[address] [facility] 03/08/2020 5:00 AM CDT us Jayda Patel DO LABORATORY Final Result Performing Organization Address [facility] de Phone Number [facility] [address] [place] [address], [id number] * (ABNORMAL) PARTIAL THROMBOPLASTIN TIME,PTT (03/07/2020 4:20 PM CDT) PTT 122.3(HH) 25.1 - 36.5 SEC 03/07/2020 5:[address] [facility] Comment: RESULTS CONFIRMED-TEST REPEATED CRITICAL RESULT, SPECIMEN DATE, TIME WERE READ BACK BY KELLIE WHITEHEAD AT 1726 ON 03/07/20. SP 03/07/2020 4:20 PM CDT Shelton Ospina MD LABORATORY Final Result Performing Organization Address [facility] de Phone Number [facility] [address] [place] [address], [phone] * (ABNORMAL) PARTIAL THROMBOPLASTIN TIME,PTT (03/07/2020 5:00 AM CDT) PTT 121.7(HH) 25.1 - 36.5 SEC 03/07/2020 7:[address] [facility] Comment: CRITICAL RESULT, SPECIMEN DATE, TIME WERE READ BACK BY JARET WHITEHEAD @ 0750. 9.1.20 TW 03/07/2020 5:00 AM CDT Shelton Ospina MD LABORATORY Final Result Performing Organization Address [facility] Co de Phone Number [facility] [address] [place] [address], [phone] * (ABNORMAL) CBC W/DIFF AUTOMATED (03/07/2020 5:00 AM CDT) WBC 8.0 4.0 - 10.8 x10'3/uL 03/07/2020 6:[address] [facility] RBC 4.13 4.10 - 5.40 x10'6/uL 03/07/2020 6:[address] [facility] HGB 12.4 12.0 - 16.0 G/DL 03/07/2020 6:[address] [facility] HCT 38.4 36.0 - 47.0 % 03/07/2020 6:[address] [facility] MCV 93.0 78.0 - 100.0 FL 03/07/2020 6:[address] [facility] MCH 30.0 27.0 - 31.0 PG 03/07/2020 6:[address] [facility] MCHC 32.3(L) 33.0 - 36.0 G/DL 03/07/2020 6:[address] [facility] RDW 13.0 11.5 - 14.5 % 03/07/2020 6:[address] [facility] PLT 338 150 - 350 x10'3/uL 03/07/2020 6:[address] [facility] MPV 11.4(H) 7.4 - 10.4 FL 03/07/2020 6:[address] [facility] ABS. NEUTROPHILS TOTAL 6.32 1.60 - 8.30 x10'3/uL 03/07/2020 7:[address] [facility] ABS. NEUTROPHILS CALCULATED 6.32 1.60 - 7.30 x10'3/uL 03/07/2020 7:[address] [facility] ABS. LYMPHOCYTES 1.12 0.80 - 4.70 x10'3/uL 03/07/2020 7:[address] [facility] ABS. MONOCYTES 0.48 0.00 - 1.50 x10'3/uL 03/07/2020 7:[address] [facility] ABS. EOSINOPHILS 0.00 0.00 - 0.40 x10'3/uL 03/07/2020 7:[address] [facility] ABS. BASOPHILS 0.08 0.00 - 0.20 x10'3/uL 03/07/2020 7:[address] [facility] ABS. NUCLEATED RBC'S 0.00 0.0 x10'3/uL 03/07/2020 7:[address] [facility] RBC MORPHOLOGY POLYCHROMASIA 020 7:[address] [facility] Comment:SLIGHT PLT MORPH. NORMAL 03/07/2020 7:[address] [facility] 03/07/2020 5:00 AM CDT Shelton Ospina MD LABORATORY Final Result [facility] [address] [place] [address], [id number] * (ABNORMAL) COMPREHENSIVE METABOLIC PANEL (03/07/2020 5:00 AM CDT) SODIUM S/P/B 137 136 - 145 MMOL/L 03/07/2020 7:[address] [facility] POTASSIUM S/P/B 3.9 3.5 - 5.1 MMOL/L 03/07/2020 7:[address] [facility] Comment:SLIGHT HEMOLYSIS, RE SULT MAY BE AFFECTED. CHLORIDE S/P/B 99 98 - 107 MMOL/L 03/07/2020 7:[address] [facility] CO2 31.5 21.0 - 32.0 MMOL/L 03/07/2020 7:[address] [facility] GLUCOSE 139(H) 74 - 106 MG/DL 03/07/2020 7:[address] [facility] BUN 19(H) 7 - 18 MG/DL 03/07/2020 7:[address] [facility] CREATININE S/P/B 0.79 0.55 - 1.02 MG/DL 03/07/2020 7:[address] [facility] CALCIUM S/P/B 8.7 8.5 - 10.1 MG/DL 03/07/2020 7:01 AM [facility] BILIRUBIN TOTAL S/P/B 0.6 0.2 - 1.0 MG/DL 03/07/2020 7:01 AM [facility] ALKALINE PHOSPHATASE S/P/B 54 41 - 108 U/L 03/07/2020 7:01 AM [facility] AST 40(H) 15 - 37 U/L 03/07/2020 7:01 AM [facility] ALT 69(H) 13 - 56 U/L 03/07/2020 7:01 AM [facility] TOTAL PROTEIN S/P/B 7.7 6.4 - 8.2 G/DL 03/07/2020 7:01 AM [facility] ALBUMIN S/P/B 3.3(L) 3.4 - 5.0 G/DL 03/07/2020 7:01 AM [facility] ANION GAP 6.5 5.0 - 15.0 MMOL/L 03/07/2020 7:01 AM [facility] Comment:REFERENCE RANGE NOT ESTABLISHED OSMOLALITY (CALC) 289 MOSM/KG 020 7:01 AM [facility] Comment:REFERENCE RANGE NOT ESTABLISHED EGFR NON-AFR. AMER. 85(L) >90 ML/MIN/1. 73 M2 03/07/2020 7:01 AM [facility] EGFR AFR. AMER. >90 >90 ML/MIN/1. 73 M2 03/07/2020 7:01 AM [facility] GFR NOTES GFR REFERENCE S: 03/07/2020 7:01 AM [facility] Comment: THE ESTIMATED GFR IS CALCULATED [...] ml/min/1.73 m2 G5,KIDNEY FAILURE: <15 ml/min/1.73 m2 03/07/2020 5:00 AM CDT us Shelton Ospina MD LABORATORY Final Result Performing Organization Address [facility] de Phone Number [facility] [address] [place] [address], [phone] * (ABNORMAL) PROTIME/INR, VENOUS (03/07/2020 5:00 AM CDT) PROTIME 13.4(H) 10.2 - 12.9 SEC 03/07/2020 7:[address] [facility] INR 1.2(H) 0.9 - 1.1 03/07/2020 7:[address] [facility] 03/07/2020 5:00 AM CDT Jayda Patel DO LABORATORY Final Result Performing Organization Address [facility] de Phone Number [facility] [address] [place] [address], [phone] * C-REACTIVE PROTEIN (03/07/2020 5:00 AM CDT) C-REACTIVE PROTEIN <0.29 <0.80 mg/dL 03/07/2020 7:[address] [facility] 03/07/2020 5:00 AM CDT Jayda Patel LABORATORY Final Result Performing Organization Address [facility] de Phone Number [facility] [address] [place] [address], [place] [phone] * (ABNORMAL) FERRITIN (03/07/2020 5:00 AM CDT) [facility] FERRITIN 315.4(H) 8.0 - 252.0 NG/ML 03/07/2020 7:[address] [facility] 03/07/2020 5:00 AM [facility]T [facility] Final Result [facility] [address] [place] [address], [phone] * (ABNORMAL) COMPREHENSIVE METABOLIC PANEL (03/06/2020 3:05 AM CDT) [facility] SODIUM S/P/B 138 136 - 145 MMOL/L 03/06/2020 4:[address] [facility] POTASSIUM S/P/B 3.4(L) 3.5 - 5.1 MMOL/L 03/06/2020 4:[address] [facility] CHLORIDE S/P/B 102 98 - 107 MMOL/L 03/06/2020 4:[address] [facility] CO2 31.2 21.0 - 32.0 MMOL/L 03/06/2020 4:[address] [facility] GLUCOSE 131(H) 74 - 106 MG/DL 03/06/2020 4:[address] [facility] BUN 15 7 - 18 MG/DL 03/06/2020 4:[address] [facility] CREATININE S/P/B 0.70 0.55 - 1.02 MG/DL 03/06/2020 4:[address] [facility] CALCIUM S/P/B 8.4(L) 8.5 - 10.1 MG/DL 03/06/2020 4:[address] [facility] BILIRUBIN TOTAL S/P/B 0.5 0.2 - 1.0 MG/DL 03/06/2020 4:[address] [facility] ALKALINE PHOSPHATASE S/P/B 52 41 - 108 U/L 03/06/2020 4:59 AM [facility] AST 36 15 - 37 U/L 03/06/2020 4:59 AM [facility] ALT 64(H) 13 - 56 U/L 03/06/2020 4:[address] [facility] TOTAL PROTEIN S/P/B 7.2 6.4 - 8.2 G/DL 03/06/2020 4:[address] [facility] ALBUMIN S/P/B 3.1(L) 3.4 - 5.0 G/DL 03/06/2020 4:59 AM [facility] ANION GAP 4.8(L) 5.0 - 15.0 MMOL/L 03/06/2020 4:59 AM [facility] Comment:REFERENCE RANGE NOT ESTABLISHED OSMOLALITY (CALC) 289 MOSM/KG 020 4:59 AM [facility] Comment:REFERENCE RANGE NOT ESTABLISHED EGFR NON-AFR. AMER. >90 >90 ML/MIN/1. 73 M2 03/06/2020 4:59 AM [facility] EGFR AFR. AMER. >90 >90 ML/MIN/1. 73 M2 03/06/2020 4:59 AM [facility] GFR NOTES GFR REFERENCE S: 03/06/2020 4:59 AM [facility] Comment: THE ESTIMATED GFR IS CALCULATED [...] ml/min/1.73 m2 G5,KIDNEY FAILURE: <15 ml/min/1.73 m2 03/06/2020 3:05 AM CDT Jayda Patel DO LABORATORY Final Result [facility] [address] [place] [address], [phone] * (ABNORMAL) CBC W/DIFF AUTOMATED (03/06/2020 3:05 AM CDT) WBC 7.9 4.0 - 10.8 x10'3/uL 03/06/2020 4:[address] [facility] RBC 3.69(L) 4.10 - 5.40 x10'6/uL 03/06/2020 4:[address] [facility] HGB 11.1(L) 12.0 - 16.0 G/DL 03/06/2020 4:[address] [facility] HCT 33.8(L) 36.0 - 47.0 % 03/06/2020 4:[address] [facility] MCV 91.6 78.0 - 100.0 FL 03/06/2020 4:[address] [facility] MCH 30.1 27.0 - 31.0 PG 03/06/2020 4:[address] [facility] MCHC 32.8(L) 33.0 - 36.0 G/DL 03/06/2020 4:[address] [facility] RDW 13.0 11.5 - 14.5 % 03/06/2020 4:[address] [facility] PLT 392(H) 150 - 350 x10'3/uL 03/06/2020 4:[address] [facility] MPV 10.8(H) 7.4 - 10.4 FL 03/06/2020 4:[address] [facility] ABS. NEUTROPHILS TOTAL 6.64 1.60 - 8.30 x10'3/uL 03/06/2020 5:[address] [facility] ABS. NEUTROPHILS CALCULATED 6.40 1.60 - 7.30 x10'3/uL 03/06/2020 5:[address] [facility] BANDS 0.08 0.00 - 1.00 x10'3/uL 03/06/2020 5:[address] [facility] ABS. LYMPHOCYTES 0.79(L) 0.80 - 4.70 x10'3/uL 03/06/2020 5:[address] [facility] ABS. MONOCYTES 0.47 0.00 - 1.50 x10'3/uL 03/06/2020 5:[address] [facility] ABS. EOSINOPHILS 0.00 0.00 - 0.40 x10'3/uL 03/06/2020 5:[address] [facility] ABS. BASOPHILS 0.00 0.00 - 0.20 x10'3/uL 03/06/2020 5:[address] [facility] ABS. METAMYELOCYTES 0.08(H) 0.00 x10'3/uL 03/06/2020 5:[address] [facility] ABS. MYELOCYTES 0.08(H) 0.00 x10'3/uL 03/06/2020 5:[address] [facility] ABS. NUCLEATED RBC'S 0.00 0.0 x10'3/uL 03/06/2020 5:[address] [facility] RBC MORPHOLOGY HYPOCHROMASIA 020 5:[address] [facility] Comment: SLIGHT POLYCHROMASIA SLIGHT PLT MORPH. HIGH 03/06/2020 5:[address] [facility] 03/06/2020 3:05 AM CDT us Jayda Patel LABORATORY Final Result Performing Organization Address [facility] de Phone Number [facility] [address] [place] [address], [phone] * PROTIME/INR, VENOUS (03/06/2020 3:05 AM CDT) PROTIME 12.7 10.2 - 12.9 SEC 03/06/2020 5:[address] [facility] INR 1.1 0.9 - 1.1 03/06/2020 5:[address] [facility] 03/06/2020 3:05 AM CDT [facility] Final Result Performing Organization Address [facility] de Phone Number [facility] [address] [place] [address], [phone] * C-REACTIVE PROTEIN (03/06/2020 3:05 AM CDT) C-REACTIVE PROTEIN <0.29 <0.80 mg/dL 03/06/2020 4:[address] [facility] 03/06/2020 3:05 AM CDT Jayda Patel LABORATORY Final Result Performing Organization Address [facility] de Phone Number [facility] [address] [place] [address], [phone] * (ABNORMAL) FERRITIN (03/06/2020 3:05 AM CDT) FERRITIN 344.7(H) 8.0 - 252.0 NG/ML 03/06/2020 4:[address] [facility] 03/06/2020 3:05 AM CDT us Jayda Patel DO LABORATORY Final Result Performing Organization Address [facility] Co de Phone Number [facility] [address] [place] [address], [phone] * PROCALCITONIN (PCT) (03/06/2020 3:05 AM CDT) Procalcitonin 0.03 <0.50 NG/ML 03/06/2020 10:[address] [facility] 03/06/2020 3:05 AM CDT us Jayda Patel DO LABORATORY Final Result Performing Organization Address [facility] [address]/[facility] Co de Phone Number [facility] [address] [place] [address], [place] [phone] * CK (CPK) (03/06/2020 3:05 AM CDT) CPK 46 26 - 192 U/L 03/06/2020 4:[address] [facility] 03/06/2020 3:05 AM CDT us Jayda Patel DO LABORATORY Final Result Performing Organization Address [facility] [address]/[facility] de Phone Number [facility] [address] [place] [address], [place] [phone] * (ABNORMAL) PARTIAL THROMBOPLASTIN TIME,PTT (03/05/2020 1:40 PM CDT) PTT 37.7(H) 25.1 - 36.5 SEC 03/05/2020 2:[address] [facility] 03/05/2020 1:40 PM CDT us Jayda Patel DO LABORATORY Final Result Performing Organization Address [facility] [address]/[facility] Co de Phone Number [facility] [address] [place] [address], [phone] * ECG 12 lead (03/05/2020 11:20 AM CDT) 03/05/2020 11:2 0 AM CDT Narrative [facility] - 03/06/2020 8:02 PM CDT ? [facility] ?[address] [place], [place] ??[address] ? Test Date: ?2020-03-05 Pat Name: ? ALTHEA KONG ?Department: ? Room: ? [id number] Gender: ? Female ? Scraper Burrer: ?? Cl : ?1965 ? Requested By: JAYDA PATEL Order Number: [id number] ? Reading MD: ?? Larisa Velazquez ? Measurements Intervals ?[place] ? Rate: ? 64 ? P: ?-22 TN: ? 157 ?QRS: ?-20 QRSD: ? 102 ?T: ?20 QT: ? 422 ? QTc: ?438 ? Interpretive Statements SINUS RHYTHM MINIMAL VOLTAGE CRITERIA FOR LVH, CONSIDER NORMAL VARIANT Procedure Note Larisa Velazquez MD - 03/06/2020 [place] [address] [place] [address] Test Date: 2020-03-05 Pat Name: ALTHEA KONG Department: Room: [facility] Gender: Female Scraper Burrer: Cl : 1965 Requested By: JAYDA PATEL Order Number: [id number] Barbie MD: Larisa Velazquez Measurements Intervals [place] Rate: 64 P: -22 TN: 157 QRS: -20 QRSD: 102 T: 20 QT: 422 QTc: 438 Interpretive Statements SINUS RHYTHM MINIMAL VOLTAGE CRITERIA FOR LVH, CONSIDER NORMAL VARIANT us Jayda Patel DO ECG ORDERABLES Final Result [facility] * XR CHEST PORTABLE (03/05/2020 11:06 AM CDT) Anatomical Region Laterality Modality Chest Radiographic Kathleen ging 03/05/2020 11:0 8 AM CDT Impressions 03/05/2020 11:08 AM CDT IMPRESSION: Persistent patchy bilateral groundglass opacities consistent with viral pneumonia Interpreted By: Isaiah Castro MD, 03/05/2020 11:08 AM Narrative 03/05/2020 11:08 AM CDT SINGLE VIEW OF THE CHEST Clinical history: Shortness of breath Comparison: February 29, 2020 A single view of the chest demonstrates the cardiac silhouette and mediastinal contours to be within normal limits for size and appears stable. Patchy bilateral groundglass opacities have not changed appreciably from the previous exam. No areas of dense airspace consolidation are seen. No significant pleural fluid is seen Procedure Note Isaiah Castro MD - 03/05/2020 SINGLE VIEW OF THE CHEST Clinical history: Shortness of breath Comparison: February 29, 2020 A single view of the chest demonstrates the cardiac silhouette and mediastinal contours to be within normal limits for size and appears stable. Patchy bilateral groundglass opacities have not changedappreciably from the previous exam. No areas of dense airspace consolidation areseen. No significant pleural fluid is seen IMPRESSION: Persistent patchy bilateral groundglass opacities consistent with viral pneumonia Interpreted By: Isaiah Castro MD, 03/05/2020 11:08 AM [facility] GENERAL IMAGING Final Result * (ABNORMAL) COMPREHENSIVE METABOLIC PANEL (03/05/2020 5:00 AM CDT) SODIUM S/P/B 140 136 - 145 MMOL/L 03/05/2020 7:[address] [facility] POTASSIUM S/P/B 3.5 3.5 - 5.1 MMOL/L 03/05/2020 7:[address] [facility] CHLORIDE S/P/B 104 98 - 107 MMOL/L 03/05/2020 7:[address] [facility] CO2 29.5 21.0 - 32.0 MMOL/L 03/05/2020 7:14 AM [facility] GLUCOSE 144(H) 74 - 106 MG/DL 03/05/2020 7:[address] [facility] BUN 15 7 - 18 MG/DL 03/05/2020 7:[address] [facility] CREATININE S/P/B 0.63 0.55 - 1.02 MG/DL 03/05/2020 7:14 AM [facility] CALCIUM S/P/B 8.3(L) 8.5 - 10.1 MG/DL 03/05/2020 7:14 AM [facility] BILIRUBIN TOTAL S/P/B 0.4 0.2 - 1.0 MG/DL 03/05/2020 7:14 AM [facility] ALKALINE PHOSPHATASE S/P/B 52 41 - 108 U/L 03/05/2020 7:14 AM [facility] AST 36 15 - 37 U/L 03/05/2020 7:14 AM [facility] ALT 61(H) 13 - 56 U/L 03/05/2020 7:14 AM [facility] TOTAL PROTEIN S/P/B 6.9 6.4 - 8.2 G/DL 03/05/2020 7:14 AM [facility] ALBUMIN S/P/B 2.9(L) 3.4 - 5.0 G/DL 03/05/2020 7:14 AM [facility] ANION GAP 6.5 5.0 - 15.0 MMOL/L 03/05/2020 7:14 AM [facility] Comment:REFERENCE RANGE NOT ESTABLISHED OSMOLALITY (CALC) 293 MOSM/KG 020 7:14 AM [facility] Comment:REFERENCE RANGE NOT ESTABLISHED EGFR NON-AFR. AMER. >90 >90 ML/MIN/1. 73 M2 03/05/2020 7:[address] [facility] EGFR AFR. AMER. >90 >90 ML/MIN/1. 73 M2 03/05/2020 7:[address] [facility] GFR NOTES GFR REFERENCE S: 03/05/2020 7:[address] [facility] Comment: THE ESTIMATED GFR IS CALCULATED [...] ml/min/1.73 m2 G5,KIDNEY FAILURE: <15 ml/min/1.73 m2 03/05/2020 5:00 AM CDT Jayda Patel DO LABORATORY Final Result [facility] [address] [place] [phone], [id number] * (ABNORMAL) CBC W/DIFF AUTOMATED (03/05/2020 5:00 AM CDT) WBC 6.1 4.0 - 10.8 x10'3/uL 03/05/2020 6:[address] [facility] RBC 3.28(L) 4.10 - 5.40 x10'6/uL 03/05/2020 6:[address] [facility] HGB 9.9(L) 12.0 - 16.0 G/DL 03/05/2020 6:[address] [facility] HCT 30.8(L) 36.0 - 47.0 % 03/05/2020 6:[address] [facility] MCV 93.9 78.0 - 100.0 FL 03/05/2020 6:[address] [facility] MCH 30.2 27.0 - 31.0 PG 03/05/2020 6:[address] [facility] MCHC 32.1(L) 33.0 - 36.0 G/DL 03/05/2020 6:[address] [facility] RDW 12.8 11.5 - 14.5 % 03/05/2020 6:[address] [facility] PLT 333 150 - 350 x10'3/uL 03/05/2020 6:[address] [facility] MPV 11.1(H) 7.4 - 10.4 FL 03/05/2020 6:[address] [facility] ABS. NEUTROPHILS TOTAL 4.58 1.60 - 8.30 x10'3/uL 03/05/2020 6:[address] [facility] ABS. NEUTROPHILS CALCULATED 4.27 1.60 - 7.30 x10'3/uL 03/05/2020 6:[address] [facility] BANDS 0.06 0.00 - 1.00 x10'3/uL 03/05/2020 6:[address] [facility] ABS. LYMPHOCYTES 1.16 0.80 - 4.70 x10'3/uL 03/05/2020 6:[address] [facility] ABS. MONOCYTES 0.37 0.00 - 1.50 x10'3/uL 03/05/2020 6:[address] [facility] ABS. EOSINOPHILS 0.00 0.00 - 0.40 x10'3/uL 03/05/2020 6:[address] [facility] ABS. BASOPHILS 0.00 0.00 - 0.20 x10'3/uL 03/05/2020 6:[address] [facility] ABS. METAMYELOCYTES 0.12(H) 0.00 x10'3/uL 03/05/2020 6:[address] [facility] ABS. MYELOCYTES 0.12(H) 0.00 x10'3/uL 03/05/2020 6:[address] [facility] ABS. NUCLEATED RBC'S 0.00 0.0 x10'3/uL 03/05/2020 6:[address] [facility] RBC MORPHOLOGY NORMAL 03/05/2020 6:[address] [facility] PLT MORPH. NORMAL 03/05/2020 6:[address] [facility] 03/05/2020 5:00 AM CDT [facility] LABORATORY Final Result Performing Organization Address [facility] de Phone Number [facility] [address] [place] [address], [phone] * (ABNORMAL) PROTIME/INR, VENOUS (03/05/2020 5:00 AM CDT) PROTIME 13.1(H) 10.2 - 12.9 SEC 03/05/2020 6:[address] [facility] INR 1.1 0.9 - 1.1 03/05/2020 6:[address] [facility] 03/05/2020 5:00 AM CDT [facility] LABORATORY Final Result Performing Organization Address [facility] Co de Phone Number [facility] [address] [place] [address], [phone] * (ABNORMAL) LDH, LACTATE DEHYDROGENASE (03/05/2020 5:00 AM CDT) LDH 345(H) 84 - 246 UNITS/L 03/05/2020 7:[address] [facility] 03/05/2020 5:00 AM CDT us Clarence Gil MD LABORATORY Final Result Performing Organization Address [facility] Co de Phone Number [facility] [address] [place] [address], [phone] * (ABNORMAL) D-DIMER, QUANTITATIVE (03/05/2020 5:00 AM CDT) D-DIMER 1,395(H) <500 ng{FEU}/m L 03/05/2020 6:[address] [facility] EXCLUSION STATEMENT CUT-OFF FOR EXCLUSION OF DEEP VEIN THROMBOSIS AND PULMONARY EMBOLISM IS <500 NG/ML FEU. 03/05/2020 12:[address] [facility] 03/05/2020 5:00 AM CDT Clarence Gil MD LABORATORY Final Result Performing Organization Address [facility] Co de Phone Number [facility] [address] [place] [address], [phone] * C-REACTIVE PROTEIN (03/05/2020 5:00 AM CDT) C-REACTIVE PROTEIN 0.33 <0.80 mg/dL 03/05/2020 7:[address] [facility] 03/05/2020 5:00 AM CDT Jayda Patel DO LABORATORY Final Result Performing Organization Address [facility] Co de Phone Number [facility] [address] [place] [address], [phone] * (ABNORMAL) FERRITIN (03/05/2020 5:00 AM CDT) FERRITIN 339.3(H) 8.0 - 252.0 NG/ML 03/05/2020 7:[address] [facility] 03/05/2020 5:00 AM CDT us Jayda Patel DO LABORATORY Final Result Performing Organization Address [facility] Co de Phone Number [facility] [address] [place] [address], [place] [phone] * PROCALCITONIN (PCT) (03/05/2020 5:00 AM CDT) Procalcitonin <0.02 <0.50 NG/ML 03/06/2020 10:[address] [facility] 03/05/2020 5:00 AM CDT us Jayda Patel DO LABORATORY Final Result Performing Organization Address [facility] de Phone Number [facility] [address] [place] [address], [place] [phone] * CK (CPK) (03/05/2020 5:00 AM CDT) CPK 62 26 - 192 U/L 03/05/2020 7:[address] [facility] 03/05/2020 5:00 AM CD[facility] Final Result Performing Organization Address [facility] Co de Phone Number [facility] [address] [place] [address], [place] [phone] * (ABNORMAL) PARTIAL THROMBOPLASTIN TIME,PTT (03/05/2020 1:45 AM CDT) PTT 59.0(H) 25.1 - 36.5 SEC 03/05/2020 2:[address] [facility] 03/05/2020 1:45 AM CDT Jayda Patel DO LABORATORY Final Result Performing Organization Address [facility] Co de Phone Number [facility] [address] [place] [address], [phone] * (ABNORMAL) PARTIAL THROMBOPLASTIN TIME,PTT (03/04/2020 5:05 PM CDT) PTT 76.5(H) 25.1 - 36.5 SEC 03/04/2020 6:[address] [facility] 03/04/2020 5:05 PM CDT Jayda Patel DO LABORATORY Final Result Performing Organization Address [facility] de Phone Number [facility] [address] [place] [address], [phone] * USE ECHOCARDIOGRAM W CON (03/04/2020 3:45 PM CDT) Anatomical Region Laterality Modality NA Echocardiogram 03/04/2020 2:32 PM CDT Narrative 03/04/2020 7:44 PM CDT ?Echocardiography Report Pat.Name: ??ALTHEA KONG ?Pat.ID: ?[id number] ? St.Date: ?? 03/04/2020 ? Refer.MD: ??JAYDA PATEL ? Exam Time: 2:32:00 PM ?Study Type:ECHO W/CONTRAST COMPLETE Height: ?63.78in ? Weight: ?407lb ? BSA: ? 2.64 m2 ?Age: ??1965,54Y ? Sex: ? FEMALE ?HR: ?65 bpm ? Sonogrphr: Zane Cuba RDCS ? Pat. Stat.:Inpatient ? Room: ?CCU-03 ?CPT - 4: ?C8929 ? 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 ++++++++++++++++++++++++++++++++++++ SUMMARY: ++++++++++++++++++++++++++++++++++++ The left ventricular size is normal. The left ventricular systolic function is normal. The calculated ejection fraction is 66%. Left ventricular diastolic function is abnormal (grade 2 - pseudonormal pattern). Right ventricular systolic function is normal. The left atrial volume is normal ( less than 34 ml/M2). The aortic valve is trileaflet. No evidence of aortic valve stenosis. Structurally normal mitral valve. Structurally normal tricuspid valve. ++++++++++++++++++++++++++++++++++++ FINDINGS: ++++++++++++++++++++++++++++++++++++ LV: ? The left ventricular size is normal. The left ventricular ?systolic ??function is normal. The calculated ejection ?fraction ??is 66%. Left ventricular diastolic function is ?abnormal ??(grade 2 - pseudonormal pattern). Left ventricular ?filling ??pressure is elevated. LVOT: ? The left ventricular outflow tract size is normal. RV: ? The right ventricular size is normal. Right ventricular ?systolic ??function is normal. IVS: ?Intraventricular septum is normal. LA: ? The left atrial volume is normal ( less than 34 ml/M2). RA: ? The right atrial size is normal. RYAN: ? No evidence of pericardial effusion. AO: ? Normal aortic root. PA: ? Unable to reliably quantitate pulmonary systolic pressure. PVn: ?Pulmonary vein velocity is consistent with normal left ?atrial ??pressures. SVn: ?Systemic veins not well visualized. AV: ? The aortic valve is trileaflet. No evidence of aortic valve ?stenosis. ??Trace aortic regurgitation. MV: ? Structurally normal mitral valve. Trace mitral ?regurgitation. ??No evidence of mitral stenosis. PV: ? Structurally normal pulmonic valve. Trace pulmonic ?regurgitation. ??No evidence of pulmonic valve stenosis. TV: ? Structurally normal tricuspid valve. A trace of tricuspid ?regurgitation. ??No evidence of tricuspid valve stenosis. ++++++++++++++++++++++++++++++++++++ MEASUREMENTS: ++++++++++++++++++++++++++++++++++++ ?DOPPLER LVOT ?? LVOTpkPG ? 4 mmHg ?LVOTmnPG ? 2 mmHg LVOTpkVel ? 97.3 cm/s (70-110) LVOT SV ? 62 ml ?? LVOT TVI ?19.8 cm ? AV Forward Flow AV TVI ?26.7 cm ?AV pkPG ? 10 mmHg AV pkVel ? 159 cm/s (100-170) Area (TVI) ?2.33 cm2 ??(3-5)* AV mnVel ?88.9 cm/s ?Area (Cody) ?1.92 cm2 ??(3-5)* AV mnPG ?4 mmHg ? MV Forward Flow MV DeTm ?254 ms ?MV E/A ? 1.3 ? MVA P1/2t ? 2.97 cm2 ??(4-6)* ?? MV pkE ?96.8 cm/s (60-130) MV P1/2t ?74 ms ?? (30-60)+* MV pkA ?75.8 cm/s Lat E' ?? Lat e ? 8.74 cm/s ? Lat E/E' ?? Lat E/e ? 11.1 ? Med E' ?? Med e ? 6.56 cm/s ? Med E/E' ?? Med E/e ? 14.8 ? Aortic Valve ?? Aortic Valve Ar ??0.88 ?Aortic Valve Ve ??0.61 ? AV DI ?? Value ?0.7 ? ALLAN (VTI) Index ?? Value ? 0.88 ? LV Mass 2D ?? Value ?364 g ? LV Mass [id number] ?? Value ?138 g/m2 ?2D Left Ventricle ?? LVIDd ? 5.82 cm ?? (3.6-5.2)* LV EF(Bi-Plane) ??65.9 % ?(55-75) LVIDs ? 4.99 cm ?? (2.3-3.9)* LVPW ?? LVPWd ? 1.19 cm ? Ventricular Septum ?? IVSd ?1.58 cm ? LVOT ?? LVOT ? 2 cm ? Ratios ?? IVS LA Biplane LAVol I BP ?34.5 ml/m2 ?MMODE Left Atrium ?? LAID ? 4.7 cm ?? (1.9-4)* Ratios ?? LA/Ao ? 1.15 ?(0.87-1.1)* Aorta ?? Ao Rt ?4.1 cm ?? (2-3.7)* Signed 03/04/2020 07:44 PM Larisa Velazquez M.D. Procedure Note Larisa Velazquez MD - 03/04/2020 Echocardiography Report Pat.Name: TO ALTHEA Maxim Pat.ID: [id number] .Date: 03/04/2020 Refer.MD: JAYDA PATEL Exam Time: 2:32:00 PM Study Type:ECHO W/CONTRAST COMPLETE Height: 63.78in Weight: 407lb BSA: 2.64 m2 Age: 9 1965,54Y Sex: FEMALE HR: 65 bpm Sonogrphr: Zane Cuba [facility] Pat. 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 ++++++++++++++++++++++++++++++++++++ SUMMARY: ++++++++++++++++++++++++++++++++++++ The left ventricular size is normal. The left ventricular systolic function is normal. The calculated ejection fraction is 66%. Left ventricular diastolic function is abnormal (grade 2 - pseudonormal pattern). Right ventricular systolic function is normal. The left atrial volume is normal ( less than 34 ml/M2). The aortic valve is trileaflet. No evidence of aortic valve stenosis. Structurally normal mitral valve. Structurally normal tricuspid valve. ++++++++++++++++++++++++++++++++++++ FINDINGS: ++++++++++++++++++++++++++++++++++++ LV: The left ventricular size is normal. The left ventricular systolic function is normal. The calculated ejection fraction is 66%. Left ventricular diastolic function is abnormal (grade 2 - pseudonormal pattern). Left ventricular filling pressure is elevated. LVOT: The left ventricular outflow tract size is normal. RV: The right ventricular size is normal. Right ventricular systolic function is normal. IVS: Intraventricular septum is normal. LA: The left atrial volume is normal ( less than 34 ml/M2). RA: The right atrial size is normal. RYAN: No evidence of pericardial effusion. AO: Normal aortic root. PA: Unable to reliably quantitate pulmonary systolic pressure. PVn: Pulmonary vein velocity is consistent with normal left atrial pressures. SVn: Systemic veins not well visualized. AV: The aortic valve is trileaflet. No evidence of aortic valve stenosis. Trace aortic regurgitation. MV: Structurally normal mitral valve. Trace mitral regurgitation. No evidence of mitral stenosis. PV: Structurally normal pulmonic valve. Trace pulmonic regurgitation. No evidence of pulmonic valve stenosis. TV: Structurally normal tricuspid valve. A trace of tricuspid regurgitation. No evidence of tricuspid valve stenosis. ++++++++++++++++++++++++++++++++++++ MEASUREMENTS: ++++++++++++++++++++++++++++++++++++ DOPPLER LVOT LVOTpkPG 4 mmHg LVOTmnPG 2 mmHg LVOTpkVel 97.3 cm/s (70-110) LVOT SV 62 ml LVOT TVI 19.8 cm AV Forward Flow AV TVI 26.7 cm AV pkPG 10 mmHg AV pkVel 159 cm/s (100-170) Area (TVI) 2.33 cm2 (3-5)* AV mnVel 88.9 cm/s Area (Cody) 1.92 cm2 (3-5)* AV mnPG 4 mmHg MV Forward Flow MV DeTm 254 ms MV E/A 1.3 MVA P1/2t 2.97 cm2 (4-6)* MV pkE 96.8 cm/s (60-130) MV P1/2t 74 ms (30-60)+* MV pkA 75.8 cm/s Lat E' Lat e 8.74 cm/s Lat E/E' Lat E/e 11.1 Med E' Med e 6.56 cm/s Med E/E' Med E/e 14.8 Aortic Valve Aortic Valve Ar 0.88 Aortic Valve Ve 0.61 AV DI Value 0.7 ALLAN (VTI) Index Value 0.88 LV Mass 2D Value 364 g LV Mass [id number] Value 138 g/m2 2D Left Ventricle LVIDd 5.82 cm (3.6-5.2)* LV EF(Bi-Plane) 65.9 % (55-75) LVIDs 4.99 cm (2.3-3.9)* LVPW LVPWd 1.19 cm Ventricular Septum IVSd 1.58 cm LVOT LVOT 2 cm Ratios IVS LA Biplane LAVol I BP 34.5 ml/m2 MMODE Left Atrium LAID 4.7 cm (1.9-4)* Ratios LA/Ao 1.15 (0.87-1.1)* Aorta Ao Rt 4.1 cm (2-3.7)* Signed 03/04/2020 07:44 PM Larisa Velazquez M.D. Jayda Patel DO ECHO Final Result * PARTIAL THROMBOPLASTIN TIME,PTT (03/04/2020 10:00 AM CDT) PTT 26.2 25.1 - 36.5 SEC 03/04/2020 11:[address] [facility] 03/04/2020 10:0 0 AM CDT [facility] LABORATORY Final Result Performing Organization Address [facility] Co de Phone Number [facility] [address] [place] [address], [place] [phone] * PROTIME/INR, VENOUS (03/04/2020 4:00 AM CDT) Pathologist [facility] PROTIME 12.6 10.2 - 12.9 SEC 03/04/2020 7:[address] [facility] INR 1.1 0.9 - 1.1 03/04/2020 7:[address] [facility] 03/04/2020 4:00 AM CDT [facility] LABORATORY Final Result Performing Organization Address [facility] de Phone Number [facility] [address] [place] [address], [place] [phone] * (ABNORMAL) COMPREHENSIVE METABOLIC PANEL (03/04/2020 4:00 AM CDT) Pathologist [facility] SODIUM S/P/B 139 136 - 145 MMOL/L 03/04/2020 6:[address] [facility] POTASSIUM S/P/B 3.2(L) 3.5 - 5.1 MMOL/L 03/04/2020 6:[address] [facility] CHLORIDE S/P/B 105 98 - 107 MMOL/L 03/04/2020 6:[address] [facility] CO2 29.5 21.0 - 32.0 MMOL/L 03/04/2020 6:29 AM [facility] GLUCOSE 125(H) 74 - 106 MG/DL 03/04/2020 6:29 AM [facility] BUN 15 7 - 18 MG/DL 03/04/2020 6:29 AM [facility] CREATININE S/P/B 0.52(L) 0.55 - 1.02 MG/DL 03/04/2020 6:29 AM [facility] CALCIUM S/P/B 8.4(L) 8.5 - 10.1 MG/DL 03/04/2020 6:29 AM [facility] BILIRUBIN TOTAL S/P/B 0.4 0.2 - 1.0 MG/DL 03/04/2020 6:29 AM [facility] ALKALINE PHOSPHATASE S/P/B 54 41 - 108 U/L 03/04/2020 6:29 AM [facility] AST 42(H) 15 - 37 U/L 03/04/2020 6:29 AM [facility] ALT 56 13 - 56 U/L 03/04/2020 6:29 AM [facility] TOTAL PROTEIN S/P/B 6.9 6.4 - 8.2 G/DL 03/04/2020 6:29 AM [facility] ALBUMIN S/P/B 2.9(L) 3.4 - 5.0 G/DL 03/04/2020 6:29 AM [facility] ANION GAP 4.5(L) 5.0 - 15.0 MMOL/L 03/04/2020 6:29 AM [facility] Comment:REFERENCE RANGE NOT ESTABLISHED OSMOLALITY (CALC) 290 MOSM/KG 020 6:29 AM [facility] Comment:REFERENCE RANGE NOT ESTABLISHED EGFR NON-AFR. AMER. >90 >90 ML/MIN/1. 73 M2 03/04/2020 6:29 AM [facility] EGFR AFR. AMER. >90 >90 ML/MIN/1. 73 M2 03/04/2020 6:[address] [facility] GFR NOTES GFR REFERENCE S: 03/04/2020 6:[address] [facility] Comment: THE ESTIMATED GFR IS CALCULATED [...] ml/min/1.73 m2 G5,KIDNEY FAILURE: <15 ml/min/1.73 m2 03/04/2020 4:00 AM CDT Clarence Gil MD LABORATORY Final Result [facility] [address] [place] [address], [phone] * (ABNORMAL) CBC W/DIFF AUTOMATED (03/04/2020 4:00 AM CDT) WBC 6.3 4.0 - 10.8 x10'3/uL 03/04/2020 6:[address] [facility] RBC 3.29(L) 4.10 - 5.40 x10'6/uL 03/04/2020 6:[address] [facility] HGB 10.0(L) 12.0 - 16.0 G/DL 03/04/2020 6:[address] [facility] HCT 30.7(L) 36.0 - 47.0 % 03/04/2020 6:[address] [facility] MCV 93.3 78.0 - 100.0 FL 03/04/2020 6:[address] [facility] MCH 30.4 27.0 - 31.0 PG 03/04/2020 6:[address] [facility] MCHC 32.6(L) 33.0 - 36.0 G/DL 03/04/2020 6:[address] [facility] RDW 13.0 11.5 - 14.5 % 03/04/2020 6:[address] [facility] PLT 324 150 - 350 x10'3/uL 03/04/2020 6:[address] [facility] MPV 11.3(H) 7.4 - 10.4 FL 03/04/2020 6:[address] [facility] ABS. NEUTROPHILS TOTAL 5.42 1.60 - 8.30 x10'3/uL 03/04/2020 7:[address] [facility] ABS. NEUTROPHILS CALCULATED 5.29 1.60 - 7.30 x10'3/uL 03/04/2020 7:[address] [facility] BANDS 0.13 0.00 - 1.00 x10'3/uL 03/04/2020 7:[address] [facility] ABS. LYMPHOCYTES 0.50(L) 0.80 - 4.70 x10'3/uL 03/04/2020 7:[address] [facility] ABS. MONOCYTES 0.38 0.00 - 1.50 x10'3/uL 03/04/2020 7:[address] [facility] ABS. EOSINOPHILS 0.00 0.00 - 0.40 x10'3/uL 03/04/2020 7:[address] [facility] ABS. BASOPHILS 0.00 0.00 - 0.20 x10'3/uL 03/04/2020 7:[address] [facility] ABS. NUCLEATED RBC'S 0.00 0.0 x10'3/uL 03/04/2020 7:[address] [facility] RBC MORPHOLOGY POLYCHROMASIA 020 7:[address] [facility] Comment:SLIGHT PLT MORPH. NORMAL 03/04/2020 7:[address] [facility] 03/04/2020 4:00 AM CDT Clarence Gil MD LABORATORY Final Result Performing Organization Address [facility] de Phone Number [facility] [address] [place] [address], [phone] * (ABNORMAL) LDH, LACTATE DEHYDROGENASE (03/04/2020 4:00 AM CDT) LDH 391(H) 84 - 246 UNITS/L 03/04/2020 6:[address] [facility] 03/04/2020 4:00 AM CDT Clarence Gil MD LABORATORY Final Result Performing Organization Address [facility] de Phone Number [facility] [address] [place] [address], [phone] * (ABNORMAL) D-DIMER, QUANTITATIVE (03/04/2020 4:00 AM CDT) D-DIMER 13,634(H) <500 ng{FEU}/m L 03/04/2020 8:[address] [facility] EXCLUSION STATEMENT CUT-OFF FOR EXCLUSION OF DEEP VEIN THROMBOSIS AND PULMONARY EMBOLISM IS <500 NG/ML FEU. 03/04/2020 12:[address] [facility] 03/04/2020 4:00 AM CDT Clarence Gil MD LABORATORY Final Result Performing Organization Address [facility] de Phone Number [facility] [address] [place] [address], [phone] * PROCALCITONIN (PCT) (03/04/2020 4:00 AM CDT) Procalcitonin <0.02 <0.50 NG/ML 03/06/2020 9:[address] [facility] 03/04/2020 4:00 AM CDT Jayda Patel DO LABORATORY Final Result Performing Organization Address City/[facility] [address]/[facility] Co de Phone Number [facility] [address] [place] [address], [phone] * CK (CPK) (03/04/2020 4:00 AM CDT) CPK 87 26 - 192 U/L 03/04/2020 6:[address] [facility] 03/04/2020 4:00 AM CDT Jayda Patel LABORATORY Final Result Performing Organization Address [facility] de Phone Number [facility] [address] [place] [address], [phone] * (ABNORMAL) FERRITIN (03/04/2020 4:00 AM CDT) FERRITIN 332.1(H) 8.0 - 252.0 NG/ML 03/04/2020 6:[address] [facility] 03/04/2020 4:00 AM CDT us Clarence Gil MD LABORATORY Final Result Performing Organization Address [facility] [address]/[facility] Co de Phone Number [facility] [address] [place] [id number], [phone] * C-REACTIVE PROTEIN (03/04/2020 4:00 AM CDT) C-REACTIVE PROTEIN 0.57 <0.80 mg/dL 03/04/2020 6:[address] [facility] 03/04/2020 4:00 AM CDT us Clarence Gil MD LABORATORY Final Result [facility] [address] [place] [address], [phone] * Transfuse Convalescent Plasma (03/03/2020 8:07 PM CDT) us Margaritajulio Gottliebrl [employer]AT[employer] ORDERAB LES - BLOOD ADMIN Final Result * Transfuse Convalescent Plasma (03/03/2020 8:07 PM CDT) Margaritajulio Gottliebrl [employer] NURSING TREATMENT ORDERAB LES - BLOOD ADMIN Final Result * IR REPLACE PICC WO [place] (03/03/2020 6:14 PM CDT) Anatomical Region Laterality Modality NA Interventional R adiology 03/03/2020 9:31 PM CDT Impressions 03/04/2020 9:48 AM CDT Impression: Procedure note for attempted PICC exchange with placement of midline. The attending radiologist, Dr. Nieves, was in the department for all critical portions of the procedure, has reviewed the images, and agrees with the content of this report. Dictated By: NACHO Conn on 03/03/2020 9:31 PM Interpreted By: NACHO Conn, 03/03/2020 9:31 PM Narrative 03/04/2020 9:48 AM CDT IR Procedure Note Pre op diagnosis: Larger bore PICC needed for CTA chest. Post Op Diagnosis: same Procedure: Attempted PICC exchange with placement of midline. Grafts/Implants: none Radiologist: Lizbeth Amado, Efrain Marc PA-C Finger Waver: none Technique /Findings: ?? Procedure and risks were discussed with patient including risks of bleeding, infection, thrombosis, possible injury to artery or nerve etc. Informed consent was obtained. The left arm was prepped and draped in sterile fashion; including indwelling PICC line. All elements of maximal sterile barrier technique as well as all elements of sterile ultrasound technique were utilized during this procedure. Timeout was performed. A guidewire was placed through the indwelling dual-lumen PICC line. The indwelling dual-lumen PICC line was gently removed over the guidewire. Peel-away sheath was placed. Multiple attempts were made to place a 5 Fijian dual-lumen PICC line over the guidewire; however due to vasospasm a 5 Fijian dual-lumen PICC line was unable to be placed over the guidewire. A 4 Fijian single lumen 20 cm midline was then placed over the guidewire. Ultrasound was used to visualize the midline within the left basilic vein. Midline flushed freely. Midline was secured in place with Stat Lock device and sterile dressing applied. No complications. Permanent ultrasound image was recorded. Drains: none Complications: none Estimated Blood Loss: <5 ml Specimens removed: none Condition: good Procedure Note Jeremias Nieves MD - 03/04/2020 IR Procedure Note Pre op diagnosis: Larger bore PICC needed for CTA chest. Post Op Diagnosis: same Procedure: Attempted PICC exchange with placement of midline. Grafts/Implants: none Radiologist: Lizbeth Amado, Efrain Marc PA-C Finger Waver: none Technique /Findings: Procedure and risks were discussed with patient including risks of bleeding, infection, thrombosis, possible injury to artery or nerve etc. Informed consent was obtained. The left arm was prepped and draped in sterile fashion; including indwelling PICC line. All elements of maximal sterile barrier techniqueas well as all elements of sterile ultrasound technique were utilizedduring this procedure. Timeout was performed. A guidewire was placed through the indwelling dual-lumen PICC line. The indwelling dual-lumen PICC line was gently removed over the guidewire. Peel-away sheath was placed. Multiple attempts were made to place a 5 Fijian dual-lumen PICC line over the guidewire; however due to vasospasma 5 Fijian dual-lumen PICC line was unable to be placed over the guidewire.A 4 Fijian single lumen 20 cm midline was then placed over the guidewire. Ultrasound was used to visualize the midline within the left basilicvein. Midline flushed freely. Midline was secured in place with Stat Lockdevice and sterile dressing applied. No complications. Permanent ultrasoundimage was recorded. Drains: none Complications: none Estimated Blood Loss: <5 ml Specimens removed: none Condition: good Impression: Procedure note for attempted PICC exchange with placement of midline. The attending radiologist, Dr. Nieves, was in the department forall critical portions of the procedure, has reviewed the images, and agrees with the content of this report. Dictated By: NACHO Conn on 03/03/2020 9:31 PM Interpreted By: NACHO Conn, 03/03/2020 9:31 PM [facility] INTERVENTIONAL RADIOLOGY Final Result * CTA CHEST (03/03/2020 5:11 PM CDT) Anatomical Region Laterality Modality Chest Computed Tomogra phy 03/03/2020 6:56 PM CDT Impressions 03/03/2020 7:03 PM CDT IMPRESSION: 1) No CT evidence for acute pulmonary embolism. 2. Extensive mixed groundglass and airspace consolidation mid and lower lung bilaterally consistent with pneumonia. No significant pleural effusion. Interpreted By: Roverto Rodriguez MD, 03/03/2020 6:56 PM Narrative 03/03/2020 7:03 PM CDT Examination: CTA CHEST Exam time: 03/02/2020 9:32 PM Clinical history: Covid 19 related pneumonia, respiratory failure. Comparison: 11/21/2019 Technique: Axial images obtained from the lung apices to the adrenal glands with intravenous injection of 80 mL Isovue 370 contrast using low-dose CT technique. Sagittal and coronal MIP reconstruction. Findings: No evidence of axillary nor supraclavicular lymphadenopathy. Small mediastinal lymph nodes are visible. No significant mediastinal nor hilar lymphadenopathy. Thoracic aortic arch is normal in caliber. Pulmonary arteries are fairly well opacified. There is no CT evidence for acute pulmonary embolus. Cardiac chambers are at the upper limits of normal for size to slightly enlarged. No pericardial thickening or pericardial effusion. No hiatal hernia. Lung parenchymal images demonstrate extensive mixed groundglass and airspace consolidation opacities involving predominantly the mid and lower lung regions bilaterally. Findings consistent with pneumonia and would be consistent with Covid 19 infection. No significant pleural effusion. No evidence of pneumothorax. Procedure Note Roverto Rodriguez MD - 03/03/2020 Examination: CTA CHEST Exam time: 03/02/2020 9:32 PM Clinical history: Covid 19 related pneumonia, respiratory failure. Comparison: 11/21/2019 Technique: Axial images obtained from the lung apices to the adrenalglands with intravenous injection of 80 mL Isovue 370 contrast using low-doseCT technique. Sagittal and coronal MIP reconstruction. Findings: No evidence of axillary nor supraclavicular lymphadenopathy. Small mediastinal lymph nodes are visible. No significant mediastinal norhilar lymphadenopathy. Thoracic aortic arch is normal in caliber. Pulmonary arteries are fairly well opacified. There is no CT evidence for acute pulmonary embolus. Cardiac chambers are at the upper limits of normalfor size to slightly enlarged. No pericardial thickening or pericardial effusion. No hiatal hernia. Lung parenchymal images demonstrate extensive mixed groundglass and airspace consolidation opacities involving predominantly the mid andlower lung regions bilaterally. Findings consistent with pneumonia and wouldbe consistent with Covid 19 infection. No significant pleural effusion. No evidence of pneumothorax. IMPRESSION: 1) No CT evidence for acute pulmonary embolism. 2. Extensive mixed groundglass and airspace consolidation mid and lower lung bilaterally consistent with pneumonia. No significant pleural effusion. Interpreted By: Roverto Rodriguez MD, 03/03/2020 6:56 PM Clarence Gil MD CT Final Result * (ABNORMAL) CBC W/DIFF AUTOMATED (03/03/2020 12:50 PM CDT) WBC 6.1 4.0 - 10.8 x10'3/uL 03/03/2020 1:09 PM CDT [facility] RBC 3.56(L) 4.10 - 5.40 x10'6/uL 03/03/2020 1:[address] [facility] HGB 10.7(L) 12.0 - 16.0 G/DL 03/03/2020 1:[address] [facility] HCT 32.7(L) 36.0 - 47.0 % 03/03/2020 1:[address] [facility] MCV 91.9 78.0 - 100.0 FL 03/03/2020 1:[address] [facility] MCH 30.1 27.0 - 31.0 PG 03/03/2020 1:[address] [facility] MCHC 32.7(L) 33.0 - 36.0 G/DL 03/03/2020 1:[address] [facility] RDW 12.9 11.5 - 14.5 % 03/03/2020 1:[address] [facility] PLT 337 150 - 350 x10'3/uL 03/03/2020 1:[address] [facility] MPV 10.7(H) 7.4 - 10.4 FL 03/03/2020 1:[address] [facility] ABS. NEUTROPHILS TOTAL 4.94 1.60 - 8.30 x10'3/uL 03/03/2020 1:[address] [facility] ABS. NEUTROPHILS CALCULATED 4.76 1.60 - 7.30 x10'3/uL 03/03/2020 1:[address] [facility] BANDS 0.12 0.00 - 1.00 x10'3/uL 03/03/2020 1:[address] [facility] ABS. LYMPHOCYTES 0.43(L) 0.80 - 4.70 x10'3/uL 03/03/2020 1:[address] [facility] ABS. MONOCYTES 0.73 0.00 - 1.50 x10'3/uL 03/03/2020 1:[address] [facility] ABS. EOSINOPHILS 0.00 0.00 - 0.40 x10'3/uL 03/03/2020 1:[address] [facility] ABS. BASOPHILS 0.00 0.00 - 0.20 x10'3/uL 03/03/2020 1:[address] [facility] ABS. MYELOCYTES 0.06(H) 0.00 x10'3/uL 03/03/2020 1:[address] [facility] ABS. NUCLEATED RBC'S 0.06(H) 0.0 x10'3/uL 03/03/2020 1:[address] [facility] RBC MORPHOLOGY HYPOCHROMASIA 020 1:[address] [facility] Comment:SLIGHT PLT MORPH. NORMAL 03/03/2020 1:[address] [facility] 03/03/2020 12:5 0 PM CDT Jayda Patel DO LABORATORY Final Result Performing Organization Address City/State/[facility] Co de Phone Number [facility] [address] [place] [address], [phone] * ECG 12 lead (03/03/2020 11:17 AM CDT) 03/03/2020 11:1 7 AM CDT Narrative [facility] - 03/04/2020 9:29 AM CDT ? [facility] ?[address] [place], [place] ??[address] ? Test Date: ?2020-03-03 Pat Name: ? ALTHEA KONG ?Department: ? Room: ? CCU3 Gender: ? Female ? Scraper Burrer: ?? [place] : ?1965 ? Requested By: JAYDA PATEL Order Number: [id number] ? Reading MD: ?? Manish Solomon ? Measurements Intervals ?[place] ? Rate: ? 56 ? P: ?-45 TN: ? 159 ?QRS: ?-22 QRSD: ? 98 ? T: ?18 QT: ? 447 ? QTc: ?433 ? Interpretive Statements SINUS BRADYCARDIA BORDERLINE LEFT AXIS DEVIATION Procedure Note Manish Solomon MD - 03/04/2020 [facility] [address] [place] [address] Test Date: 2020-03-03 Pat Name: ALTHEA KONG Department: Room: [facility] Gender: Female Scraper Burrer: KATIE : 1965 Requested By: JAYDA PATEL Order Number: [id number] Reading MD: Manish Solomon Measurements Intervals [place] Rate: 56 P: -45 TN: 159 QRS: -22 QRSD: 98 T: 18 QT: 447 QTc: 433 Interpretive Statements SINUS BRADYCARDIA BORDERLINE LEFT AXIS DEVIATION Jayda Patel DO ECG ORDERABLES Final Result Performing Organization Address [facility] Co de Phone Number [facility] * (ABNORMAL) FERRITIN (03/03/2020 11:15 AM CDT) FERRITIN 344.1(H) 8.0 - 252.0 NG/ML 03/03/2020 11:[address] [facility] 03/03/2020 11:1 5 AM CDT Clarence Gil MD LABORATORY Final Result Performing Organization Address [facility] de Phone Number [facility] [address] [place] [address], [phone] * (ABNORMAL) C-REACTIVE PROTEIN (03/03/2020 11:15 AM CDT) C-REACTIVE PROTEIN 1.06(H) <0.80 mg/dL 03/03/2020 11:[address] [facility] 03/03/2020 11:1 5 AM CDT Clarence Gil MD LABORATORY Final Result Performing Organization Address [facility]/ZIP Co de Phone Number [facility] [address] [place] [address], [phone] * (ABNORMAL) LDH, LACTATE DEHYDROGENASE (03/03/2020 11:15 AM CDT) LDH 397(H) 84 - 246 UNITS/L 03/03/2020 11:[address] [facility] 03/03/2020 11:1 5 AM CDT sIela Fitzpatrick MD LABORATORY Final Res ult Performing Organization Address [facility] Co de Phone Number [facility] [address] [place] [address], [phone] * Prepare Convalescent Plasma for COVID-19 (03/03/2020 11:02 AM CDT) UNITS ORDERED 1 03/03/2020 11:[address] [facility] BLOOD UNIT NUMBER [id number] 03/03/2020 4:[address] [facility] PRODUCT: THAW APH CONV PLS COV19 BAG 3 03/03/2020 4:[address] [facility] UNIT DIVISION 00 03/03/2020 4:[address] [facility] BLOOD UNIT STATUS TRANSFUSED,FINAL 03/04/2020 3:[address] [facility] ISSUE DATE/TIME [id number] 020 3:[address] [facility] PRODUCT CODE [id number] 03/04/2020 3:[address] [facility] ABO/RH Unit AB POS 03/04/2020 3:[address] [facility] ABO/RH UNIT ISBT CODE 8400 03/04/2020 3:[address] [facility] BLOOD UNIT EXPIRATION DATE [id number] 03/04/2020 3:[address] [facility] TRANSFUSION STATUS OK TO TRANSFUSE 03/03/2020 4:[address] [facility] 03/03/2020 11:0 2 AM CDT Margarita Thakur [facility] BLOOD BANK PRODUCT ORDERA BLES Final Result [facility] [address] [place] [address], [phone] * (ABNORMAL) COMPREHENSIVE METABOLIC PANEL (03/03/2020 9:04 AM CDT) SODIUM S/P/B 139 136 - 145 MMOL/L 03/03/2020 10:[address] [facility] POTASSIUM S/P/B 3.8 3.5 - 5.1 MMOL/L 03/03/2020 10:[address] [facility] Comment:MILD HEMOLYSIS, RESU LT MAY BE AFFECTED. CHLORIDE S/P/B 109(H) 98 - 107 MMOL/L 03/03/2020 10:[address] [facility] CO2 23.1 21.0 - 32.0 MMOL/L 03/03/2020 10:[address] [facility] GLUCOSE 121(H) 74 - 106 MG/DL 03/03/2020 10:[address] [facility] BUN 10 7 - 18 MG/DL 03/03/2020 10:[address] [facility] CREATININE S/P/B 0.41(L) 0.55 - 1.02 MG/DL 03/03/2020 10:[address] [facility] CALCIUM S/P/B 7.6(L) 8.5 - 10.1 MG/DL 03/03/2020 10:[address] [facility] BILIRUBIN TOTAL S/P/B 0.4 0.2 - 1.0 MG/DL 03/03/2020 10:08 AM [facility] ALKALINE PHOSPHATASE S/P/B 49 41 - 108 U/L 03/03/2020 10:08 AM [facility] AST 44(H) 15 - 37 U/L 03/03/2020 10:08 AM [facility] Comment:RESULT QUESTIONABLE DUE TO HEMOLYSIS, CONSIDER RECOLLECTION. ALT 52 13 - 56 U/L 03/03/2020 10:08 AM [facility] TOTAL PROTEIN S/P/B 6.2(L) 6.4 - 8.2 G/DL 03/03/2020 10:08 AM [facility] ALBUMIN S/P/B 2.6(L) 3.4 - 5.0 G/DL 03/03/2020 10:08 AM [facility] ANION GAP 6.9 5.0 - 15.0 MMOL/L 03/03/2020 10:08 AM [facility] Comment:REFERENCE RANGE NOT ESTABLISHED OSMOLALITY (CALC) 288 MOSM/KG 020 10:08 AM [facility] Comment:REFERENCE RANGE NOT ESTABLISHED EGFR NON-AFR. AMER. >90 >90 ML/MIN/1. 73 M2 03/03/2020 10:08 AM [facility] EGFR AFR. AMER. >90 >90 ML/MIN/1. 73 M2 03/03/2020 10:08 AM [facility] GFR NOTES GFR REFERENCE S: 03/03/2020 10:08 AM [facility] Comment: THE ESTIMATED GFR IS CALCULATED [...] ml/min/1.73 m2 G5,KIDNEY FAILURE: <15 ml/min/1.73 m2 03/03/2020 9:04 AM CDT us Clarence Gil MD LABORATORY Final Result Performing Organization Address [facility]/ZIP Co de Phone Number [facility] [address] [place] [address], [phone] * (ABNORMAL) POCT glucose (03/02/2020 9:07 AM CDT) GLUCOSE POC 164(H) 70 - 109 03/02/2020 9:[address] [facility] 03/02/2020 9:07 AM CDT us Clarence Gil MD POCT ORDERABLES - DEVICE Final Result Performing Organization Address [facility] de Phone Number [facility] [address] [place] [address], [phone] * (ABNORMAL) CBC W/DIFF AUTOMATED (03/02/2020 3:50 AM CDT) WBC 4.4 4.0 - 10.8 x10'3/uL 03/02/2020 6:[address] [facility] RBC 3.46(L) 4.10 - 5.40 x10'6/uL 03/02/2020 6:[address] [facility] HGB 10.5(L) 12.0 - 16.0 G/DL 03/02/2020 6:[address] [facility] HCT 32.0(L) 36.0 - 47.0 % 03/02/2020 6:[address] [facility] MCV 92.5 78.0 - 100.0 FL 03/02/2020 6:[address] [facility] MCH 30.3 27.0 - 31.0 PG 03/02/2020 6:[address] [facility] MCHC 32.8(L) 33.0 - 36.0 G/DL 03/02/2020 6:[address] [facility] RDW 13.0 11.5 - 14.5 % 03/02/2020 6:[address] [facility] PLT 238 150 - 350 x10'3/uL 03/02/2020 6:[address] [facility] MPV 11.1(H) 7.4 - 10.4 FL 03/02/2020 6:[address] [facility] ABS. NEUTROPHILS TOTAL 3.71 1.60 - 8.30 x10'3/uL 03/02/2020 6:[address] [facility] ABS. LYMPHOCYTES 0.44(L) 0.80 - 4.70 x10'3/uL 03/02/2020 6:[address] [facility] ABS. MONOCYTES 0.23 0.00 - 1.50 x10'3/uL 03/02/2020 6:[address] [facility] ABS. EOSINOPHILS 0.00 0.00 - 0.40 x10'3/uL 03/02/2020 6:[address] [facility] ABS. BASOPHILS 0.01 0.00 - 0.20 x10'3/uL 03/02/2020 6:[address] [facility] ABS. IMMATURE GRANULOCYTES 0.03 0.00 - 0.03 x10'3/uL 03/02/2020 6:[address] [facility] ABS. NUCLEATED RBC'S 0.00 0.0 x10'3/uL 03/02/2020 6:[address] [facility] 03/02/2020 3:50 AM CDT us Clarence Gil MD LABORATORY Final Result [facility] [address] [place] [address], [phone] * (ABNORMAL) COMPREHENSIVE METABOLIC PANEL (03/02/2020 3:50 AM CDT) SODIUM S/P/B 138 136 - 145 MMOL/L 03/02/2020 7:[address] [facility] POTASSIUM S/P/B 3.1(L) 3.5 - 5.1 MMOL/L 03/02/2020 7:[address] [facility] CHLORIDE S/P/B 103 98 - 107 MMOL/L 03/02/2020 7:[address] [facility] CO2 28.5 21.0 - 32.0 MMOL/L 03/02/2020 7:[address] [facility] GLUCOSE 148(H) 74 - 106 MG/DL 03/02/2020 7:[address] [facility] BUN 5(L) 7 - 18 MG/DL 03/02/2020 7:[address] [facility] CREATININE S/P/B 0.49(L) 0.55 - 1.02 MG/DL 03/02/2020 7:[address] [facility] CALCIUM S/P/B 8.0(L) 8.5 - 10.1 MG/DL 03/02/2020 7:[address] [facility] BILIRUBIN TOTAL S/P/B 0.5 0.2 - 1.0 MG/DL 03/02/2020 7:[address] [facility] ALKALINE PHOSPHATASE S/P/B 59 41 - 108 U/L 03/02/2020 7:[address] [facility] AST 50(H) 15 - 37 U/L 03/02/2020 7:[address] [facility] ALT 62(H) 13 - 56 U/L 03/02/2020 7:[address] [facility] TOTAL PROTEIN S/P/B 7.2 6.4 - 8.2 G/DL 03/02/2020 7:[address] [facility] ALBUMIN S/P/B 2.9(L) 3.4 - 5.0 G/DL 03/02/2020 7:[address] [facility] ANION GAP 6.5 5.0 - 15.0 MMOL/L 03/02/2020 7:[address] [facility] Comment:REFERENCE RANGE NOT ESTABLISHED OSMOLALITY (CALC) 286 MOSM/KG 020 7:[address] [facility] Comment:REFERENCE RANGE NOT ESTABLISHED EGFR NON-AFR. AMER. >90 >90 ML/MIN/1. 73 M2 03/02/2020 7:[address] [facility] EGFR AFR. AMER. >90 >90 ML/MIN/1. 73 M2 03/02/2020 7:[address] [facility] GFR NOTES GFR REFERENCE S: 03/02/2020 7:[address] [facility] Comment: THE ESTIMATED GFR IS CALCULATED [...] ml/min/1.73 m2 G5,KIDNEY FAILURE: <15 ml/min/1.73 m2 03/02/2020 3:50 AM CDT us Judith Byers MD LABORATORY Final Result [facility] [address] [place] [address], [phone] * MAGNESIUM (03/02/2020 3:50 AM CDT) MAGNESIUM 2.1 1.6 - 2.6 MG/DL 03/02/2020 7:[address] [facility] 03/02/2020 3:50 AM CDT Isela Fitzpatrick MD LABORATORY Final Res ult Performing Organization Address [facility] de Phone Number [facility] [address] [place] [address], [phone] * (ABNORMAL) D-DIMER, QUANTITATIVE (03/02/2020 3:50 AM CDT) D-DIMER 781(H) <500 ng{FEU}/m L 03/02/2020 7:[address] [facility] EXCLUSION STATEMENT CUT-OFF FOR EXCLUSION OF DEEP VEIN THROMBOSIS AND PULMONARY EMBOLISM IS <500 NG/ML FEU. 03/02/2020 12:[address] [facility] 03/02/2020 3:50 AM CDT Isela Fitzpatrick MD LABORATORY Final Res ult Performing Organization Address [facility] de Phone Number [facility] [address] [place] [address], [place] [phone] * CK (CPK) (03/02/2020 3:50 AM CDT) CPK 186 26 - 192 U/L 03/02/2020 7:[address] [facility] 03/02/2020 3:50 AM CDT Isela Fitzpatrick MD LABORATORY Final Res ult Performing Organization Address City/[facility] Co de Phone Number [facility] [address] [place] [address], [place] [phone] * (ABNORMAL) FERRITIN (03/02/2020 3:50 AM CDT) FERRITIN 380.1(H) 8.0 - 252.0 NG/ML 03/02/2020 7:[address] [facility] 03/02/2020 3:50 AM CDT Clarence Gil MD LABORATORY Final Result Performing Organization Address [facility]/ZIP Co de Phone Number [facility] [address] [place] [address], [phone] * (ABNORMAL) C-REACTIVE PROTEIN (03/02/2020 3:50 AM CDT) C-REACTIVE PROTEIN 2.35(H) <0.80 mg/dL 03/02/2020 7:[address] [facility] 03/02/2020 3:50 AM CDT Clarence Gil MD LABORATORY Final Result Performing Organization Address [facility] Co de Phone Number [facility] [address] [place] [address], [phone] * PHOSPHORUS, INORGANIC PHOSPHATE (03/02/2020 3:50 AM CDT) PHOSPHORUS 2.7 2.5 - 4.9 MG/DL 03/02/2020 7:[address] [facility] 03/02/2020 3:50 AM CDT us Clarence Gil MD LABORATORY Final Result Performing Organization Address [facility]/ZIP Co de Phone Number [facility] [address] [place] [address], [place] [phone] * (ABNORMAL) LDH, LACTATE DEHYDROGENASE (03/02/2020 3:50 AM CDT) LDH 419(H) 84 - 246 UNITS/L 03/02/2020 7:[address] [facility] 03/02/2020 3:50 AM CDT Isela Fitzpatrick MD LABORATORY Final Res ult Performing Organization Address [facility] de Phone Number [facility] [address] [place] [address], [place] [phone] * ANTIBODY INTERPRETATION (03/01/2020 5:00 PM CDT) [facility] ANTIBODY INTERPRETAION ANTI-D (RH1) IS IDENTIFIED IN THE SERUM. ANTI-D (RH1) CAN CAUSE HEMOLYTIC TRANSFUSION REACTION AND HEMOLYTIC DISEASE OF FETUS/. 15% OF DONOR BLOOD WILL BE D (RH1) ANTIGEN NEGATIVE. 03/04/2020 1:[address] [facility] Comment: IF TRANSFUSION IS REQUIRED, ADDITIONAL TIME WILL BE NEEDED TO FIND COMPATIBLE UNITS. CONTACT THE TRANSFUSION SERVICE REGARDING AVAILABILITY OF BLOOD. IF THE PATIENT IS TRANSFUSED, FUTURE REQUESTS FOR BLOOD WILL BE INDEPENDENTLY REVIEWED WITH APPROPRIATE RECOMMENDATIONS MADE. FOR FURTHER INFORMATION OR A CONSULTATION CONTACT THE TRANSFUSION SERVICE PHYSICIAN. 03/01/2020 5:00 PM CDT Bakari Parada MD BLOOD BANK TEST ORDERABLES F inal Result Performing Organization Address [facility] de Phone Number [facility] [address] [place] [address], [place] [phone] * (ABNORMAL) COMPREHENSIVE METABOLIC PANEL (03/01/2020 5:00 PM CDT) Pathologist [facility] SODIUM S/P/B 136 136 - 145 MMOL/L 03/01/2020 7:[address] [facility] POTASSIUM S/P/B 2.5(LL) 3.5 - 5.1 MMOL/L 03/01/2020 7:[address] [facility] Comment: CRITICAL RESULT, SPECIMEN DATE, TIME WERE READ BACK BY MERON WHITEHEAD @[id number] 03.01.2020 RC CHLORIDE S/P/B 99 98 - 107 MMOL/L 03/01/2020 7:[address] [facility] CO2 29.9 21.0 - 32.0 MMOL/L 03/01/2020 7:[address] [facility] GLUCOSE 115(H) 74 - 106 MG/DL 03/01/2020 7:[address] [facility] BUN 6(L) 7 - 18 MG/DL 03/01/2020 7:[address] [facility] CREATININE S/P/B 0.52(L) 0.55 - 1.02 MG/DL 03/01/2020 7:[address] [facility] CALCIUM S/P/B 8.5 8.5 - 10.1 MG/DL 03/01/2020 7:[address] [facility] BILIRUBIN TOTAL S/P/B 1.0 0.2 - 1.0 MG/DL 03/01/2020 7:[address] [facility] ALKALINE PHOSPHATASE S/P/B 59 41 - 108 U/L 03/01/2020 7:[address] [facility] AST 49(H) 15 - 37 U/L 03/01/2020 7:[address] [facility] ALT 62(H) 13 - 56 U/L 03/01/2020 7:[address] [facility] TOTAL PROTEIN S/P/B 7.4 6.4 - 8.2 G/DL 03/01/2020 7:[address] [facility] ALBUMIN S/P/B 3.0(L) 3.4 - 5.0 G/DL 03/01/2020 7:[address] [facility] ANION GAP 7.1 5.0 - 15.0 MMOL/L 03/01/2020 7:[address] [facility] Comment:REFERENCE RANGE NOT ESTABLISHED OSMOLALITY (CALC) 281 MOSM/KG 020 7:[address] [facility] Comment:REFERENCE RANGE NOT ESTABLISHED EGFR NON-AFR. AMER. >90 >90 ML/MIN/1. 73 M2 03/01/2020 7:[address] [facility] EGFR AFR. AMER. >90 >90 ML/MIN/1. 73 M2 03/01/2020 7:[address] [facility] GFR NOTES GFR REFERENCE S: 03/01/2020 7:[address] [facility] Comment: THE ESTIMATED GFR IS CALCULATED [...] ml/min/1.73 m2 G5,KIDNEY FAILURE: <15 ml/min/1.73 m2 03/01/2020 5:00 PM CDT Judith Byers MD LABORATORY Final Result [facility] [address] [place] [phone], [id number] * (ABNORMAL) PROTIME/INR, VENOUS (03/01/2020 5:00 PM CDT) PROTIME 13.1(H) 10.2 - 12.9 SEC 03/01/2020 6:[address] [facility] INR 1.1 0.9 - 1.1 03/01/2020 6:[address] [facility] 03/01/2020 5:00 PM CDT Judith Byers MD LABORATORY Final Result [facility] [address] [place] [address], [id number] * TYPE & SCREEN (03/01/2020 5:00 PM CDT) UNITS ORDERED 2 03/01/2020 8:[address] [facility] ABO/RH AB NEGATIVE 03/01/2020 6:[address] [facility] ANTIBODY SCREEN POSITIVE 0 8:[address] [facility] SAMPLE EXPIRATION 03/04/2020,235 9 03/01/2020 5:[address] [facility] ANTIBODY ID ANTI-D 03/01/2020 8:[address] [facility] BLOOD UNIT NUMBER [id number] 03/01/2020 8:[address] [facility] PRODUCT: PC LEUKOPOOR 03/01/2020 8:[address] [facility] UNIT DIVISION 00 03/01/2020 8:[address] [facility] BLOOD UNIT STATUS UNIT RELEASED 03/05/2020 12:[address] [facility] TRANSFUSION STATUS OK TO TRANSFUSE 03/01/2020 8:[address] [facility] CROSSMATCH COMPATIBLE 03/01/2020 8:[address] [facility] BLOOD UNIT NUMBER [id number] 03/01/2020 8:[address] [facility] PRODUCT: PC LEUKOPOOR 03/01/2020 8:[address] [facility] UNIT DIVISION 00 03/01/2020 8:[address] [facility] BLOOD UNIT STATUS UNIT RELEASED 03/05/2020 12:[address] [facility] TRANSFUSION STATUS OK TO TRANSFUSE 03/01/2020 8:[address] [facility] CROSSMATCH COMPATIBLE 03/01/2020 8:[address] [facility] 03/01/2020 5:00 PM CDT Clarence Gil MD BLOOD BANK TEST ORDERABLES Gianna l Result Performing Organization Address [facility] [address] [facility] Co de Phone Number [facility] [address] [place] [address], [id number] * PROCALCITONIN (PCT) (03/01/2020 5:00 PM CDT) Pathologist [facility] Procalcitonin 0.03 <0.50 NG/ML 03/02/2020 11:[address] [facility] 03/01/2020 5:00 PM CDT Isela Fitzpatrick MD LABORATORY Final Res ult Performing Organization Address [facility] Co de Phone Number [facility] [address] [place] [address], [id number] * MAGNESIUM (03/01/2020 5:00 PM CDT) Pathologist [facility] MAGNESIUM 2.0 1.6 - 2.6 MG/DL 03/01/2020 8:[address] [facility] 03/01/2020 5:00 PM CDT Isela Fitzpatrick MD LABORATORY Final Res ult Performing Organization Address [facility] [address] [facility] Co de Phone Number [facility] [address] [place] [address], [id number] * (ABNORMAL) D-DIMER, QUANTITATIVE (03/01/2020 5:00 PM CDT) Pathologist [facility] D-DIMER 856(H) <500 ng{FEU}/m L 03/01/2020 8:[address] [facility] EXCLUSION STATEMENT CUT-OFF FOR EXCLUSION OF DEEP VEIN THROMBOSIS AND PULMONARY EMBOLISM IS <500 NG/ML FEU. 03/01/2020 12:[address] [facility] 03/01/2020 5:00 PM CDT Isela Fitzpatrick MD LABORATORY Final Res ult Performing Organization Address [facility] [address]/ZIP Co de Phone Number [facility] [address] [place] [address], [phone] * CK (CPK) (03/01/2020 5:00 PM CDT) CPK 189 26 - 192 U/L 03/01/2020 8:[address] [facility] 03/01/2020 5:00 PM CDT Isela Fitzpatrick MD LABORATORY Final Res ult Performing Organization Address [facility] [address] [facility] Co de Phone Number [facility] [address] [place] [address], [place] [phone] * (ABNORMAL) LDH, LACTATE DEHYDROGENASE (03/01/2020 5:00 PM CDT) LDH 404(H) 84 - 246 UNITS/L 03/01/2020 8:[address] [facility] 03/01/2020 5:00 PM CDT Isela Fitzpatrick MD LABORATORY Final Res ult Performing Organization Address [facility] [address] [facility] Co de Phone Number [facility] [address] [place] [address], [place] [phone] [id number] * (ABNORMAL) BASIC METABOLIC PANEL (03/01/2020 5:00 PM CDT) SODIUM S/P/B 138 136 - 145 MMOL/L 03/01/2020 8:[address] [facility] POTASSIUM S/P/B 2.7(LL) 3.5 - 5.1 MMOL/L 03/01/2020 8:[address] [facility] Comment: CRITICAL RESULT, SPECIMEN DATE, TIME WERE READ BACK BY JOSEY WHITEHEAD @2018 03.01.2020 TO TGY CHLORIDE S/P/B 101 98 - 107 MMOL/L 03/01/2020 8:[address] [facility] CO2 29.6 21.0 - 32.0 MMOL/L 03/01/2020 8:[address] [facility] GLUCOSE 111(H) 74 - 106 MG/DL 03/01/2020 8:[address] [facility] BUN 6(L) 7 - 18 MG/DL 03/01/2020 8:[address] [facility] CREATININE S/P/B 0.52(L) 0.55 - 1.02 MG/DL 03/01/2020 8:[address] [facility] CALCIUM S/P/B 8.3(L) 8.5 - 10.1 MG/DL 03/01/2020 8:[address] [facility] ANION GAP 7.4 5.0 - 15.0 MMOL/L 03/01/2020 8:[address] [facility] Comment:REFERENCE RANGE NOT ESTABLISHED OSMOLALITY (CALC) 284 MOSM/KG 020 8:[address] [facility] Comment:REFERENCE RANGE NOT ESTABLISHED EGFR NON-AFR. AMER. >90 >90 ML/MIN/1. 73 M2 03/01/2020 8:[address] [facility] EGFR AFR. AMER. >90 >90 ML/MIN/1. 73 M2 03/01/2020 8:[address] [facility] GFR NOTES GFR REFERENCE S: 03/01/2020 8:[address] [facility] Comment: THE ESTIMATED GFR IS CALCULATED [...] ml/min/1.73 m2 G5,KIDNEY FAILURE: <15 ml/min/1.73 m2 03/01/2020 5:00 PM CDT us Isela Fitzpatrick MD LABORATORY Final Res ult [facility] [address] [place] [phone], [id number] * (ABNORMAL) CBC W/DIFF AUTOMATED (03/01/2020 5:00 PM CDT) WBC 4.6 4.0 - 10.8 x10'3/uL 03/01/2020 6:[address] [facility] RBC 3.54(L) 4.10 - 5.40 x10'6/uL 03/01/2020 6:[address] [facility] HGB 10.6(L) 12.0 - 16.0 G/DL 03/01/2020 6:[address] [facility] HCT 32.3(L) 36.0 - 47.0 % 03/01/2020 6:[address] [facility] MCV 91.2 78.0 - 100.0 FL 03/01/2020 6:[address] [facility] MCH 29.9 27.0 - 31.0 PG 03/01/2020 6:[address] [facility] MCHC 32.8(L) 33.0 - 36.0 G/DL 03/01/2020 6:[address] [facility] RDW 12.9 11.5 - 14.5 % 03/01/2020 6:[address] [facility] PLT 227 150 - 350 x10'3/uL 03/01/2020 6:[address] [facility] MPV 10.9(H) 7.4 - 10.4 FL 03/01/2020 6:[address] [facility] ABS. NEUTROPHILS TOTAL 3.59 1.60 - 8.30 x10'3/uL 03/01/2020 6:[address] [facility] ABS. LYMPHOCYTES 0.68(L) 0.80 - 4.70 x10'3/uL 03/01/2020 6:[address] [facility] ABS. MONOCYTES 0.26 0.00 - 1.50 x10'3/uL 03/01/2020 6:[address] [facility] ABS. EOSINOPHILS 0.00 0.00 - 0.40 x10'3/uL 03/01/2020 6:[address] [facility] ABS. BASOPHILS 0.01 0.00 - 0.20 x10'3/uL 03/01/2020 6:[address] [facility] ABS. IMMATURE GRANULOCYTES 0.02 0.00 - 0.03 x10'3/uL 03/01/2020 6:[address] [facility] ABS. NUCLEATED RBC'S 0.00 0.0 x10'3/uL 03/01/2020 6:[address] [facility] 03/01/2020 5:00 PM CDT us Isela Fitzpatrick MD LABORATORY Final Res ult [facility] [address] [place] [address], [place] [phone] * IR PICC PLC GREATER 5YR (03/01/2020 4:04 PM CDT) Anatomical Region Laterality Modality Chest Interventional R adiology 03/02/2020 2:34 PM CDT Impressions 03/02/2020 5:11 PM CDT IMPRESSION: Placement of a Left upper extremity 4 Fijian double lumen peripherally inserted central venous catheter, as detail above. PLAN: The catheter is ready for immediate use. The attending radiologist, Dr. Andersen, was in the department for all critical portions of the procedure, has reviewed the images, and agrees with the content of this report. Dictated By: NACHO Conn on 03/02/2020 2:34 PM Interpreted By: NACHO Conn, 03/02/2020 2:34 PM Narrative 03/02/2020 5:11 PM CDT PROCEDURE: Left upper extremity double lumen peripherally inserted central venous catheter (PICC). DATE : 03/02/2020 2:34 PM INDICATION: ??IV antibiotics needed. PHYSICIANS: Sandi Andersen M.D., Efrain Marc PA-C MEDICATIONS: Local lidocaine anesthesia only. FLUOROSCOPY TIME: 0.25 minutes and 1 fluoroscopic image sent to PACS. TECHNIQUE AND FINDINGS: The patient was brought to the fluoroscopy suite, placed in the supine position, and a timeout was performed. The patient's Left upper extremity was then sterilely prepped and draped. Maximal sterile barrier techniques were utilized throughout the procedure; including hand cleaning with alcohol based hand rub. Sterile ultrasound barrier techniques were utilized throughout the procedure. Ultrasound evaluation of potential access sites was performed. Following local anesthesia with 1% lidocaine, a 21 gauge needle was used to puncture the patent brachial vein several centimeters above the antecubital fossa under ultrasound guidance, with image saved for the permanent record. An 0.018 inch wire was advanced through the needle into the central veins, as confirmed fluoroscopically. The needle was then exchanged over the wire for a peel-away sheath. A 4 Fijian double lumen PICC was cut to an appropriate length of 52 cm and advanced through the peel-away sheath. The wire and peel-away sheath were removed. The tip of the PICC tip was located at the cavoatrial junction on final recorded fluoroscopic image. The PICC aspirated and flushed well and was flushed with heparinized saline. The catheter was secured to the skin at the exit site and a sterile dressing was applied. The patient appeared to tolerate the procedure well. Procedure Note Sandi Andersen MD - 03/02/2020 PROCEDURE: Left upper extremity double lumen peripherally insertedcentral venous catheter (PICC). DATE : 03/02/2020 2:34 PM INDICATION: IV antibiotics needed. PHYSICIANS: Sandi Andersen M.D., Efrain Marc PA-C MEDICATIONS: Local lidocaine anesthesia only. FLUOROSCOPY TIME: 0.25 minutes and 1 fluoroscopic image sent to PACS. TECHNIQUE AND FINDINGS: The patient was brought to the fluoroscopy suite, placed in the supine position, and a timeout was performed. The patient's Left upperextremity was then sterilely prepped and draped. Maximal sterile barriertechniques were utilized throughout the procedure; including hand cleaning with alcohol based hand rub. Sterile ultrasound barrier techniques wereutilized throughout the procedure. Ultrasound evaluation of potential access sites was performed. Following local anesthesia with 1% lidocaine, a 21 gauge needle was used topuncture the patent brachial vein several centimeters above the antecubital fossa under ultrasound guidance, with image saved for the permanent record. An 0.018 inch wire was advanced through the needle into the central veins,as confirmed fluoroscopically. The needle was then exchanged over the wirefor a peel-away sheath. A 4 Fijian double lumen PICC was cut to anappropriate length of 52 cm and advanced through the peel-away sheath. The wire and peel-away sheath were removed. The tip of the PICC tip was located atthe cavoatrial junction on final recorded fluoroscopic image. The PICC aspirated and flushed well and was flushed with heparinized saline. The catheter was secured to the skin at the exit site and asterile dressing was applied. The patient appeared to tolerate the procedure well. IMPRESSION: Placement of a Left upper extremity 4 Fijian double lumen peripherally inserted central venous catheter, as detail above. PLAN: The catheter is ready for immediate use. The attending radiologist, Dr. Andersen, was in the department for all critical portions of the procedure, has reviewed the images, and agrees with the content of this report. Dictated By: NACHO Conn on 03/02/2020 2:34 PM Interpreted By: NACHO Conn, 03/02/2020 2:34 PM us Clarence Gil MD INTERVENTIONAL RADIOLOGY Final Result * CULTURE RESPIRATORY W/ GRAM STAIN (03/01/2020 2:00 PM CDT) SPEC DESCRIPTION SPUTUM, EXPECTORATED 03/01/2020 1:[address] [facility] SPECIAL REQUESTS NO SPECIAL REQUEST 03/01/2020 1:[address] [facility] GRAM STAIN RESULT 10-25 NEUTROPHILS PER LPF 03/01/2020 6:[address] [facility] GRAM STAIN RESULT <10 EPITHELIAL CELLS PER LPF 03/01/2020 6:[address] [facility] GRAM STAIN RESULT MANY GRAM NEGATIVE RODS 03/01/2020 6:[address] [facility] GRAM STAIN RESULT FEW GRAM POSITIVE COCCI IN PAIRS 03/01/2020 6:[address] [facility] CULTURE RESULT MODERATE ALPHA STREPTOCOCCUS 03/03/2020 12:[address] [facility] CULTURE RESULT FEW MICROCOCCUS SPECIES 03/03/2020 12:[address] [facility] CULTURE RESULT NORMAL RESPIRATORY VINAY PRESENT 03/03/2020 12:[address] [facility] SPUTUM SPECIMEN / Unknown 03/01/2020 2:00 PM CDT 03/01/2020 4:31 PM CDT Isela Fitzpatrick MD MICROBIOLOGY - GENERAL OR DERABLES Final Result [facility] [address] [place] [address], [id number] * (ABNORMAL) FERRITIN (02/29/2020 8:30 PM CDT) [facility] FERRITIN 391.1(H) 8.0 - 252.0 NG/ML 02/29/2020 10:[address] [facility] 02/29/2020 8:30 PM CDT us Isela Fitzpatrick MD LABORATORY Final Res ult Performing Organization Address [facility] [address] [facility] de Phone Number [facility] [address] [place] [address], [id number] * CULTURE, BACTERIA, BLOOD (02/29/2020 8:30 PM CDT) [facility] SPEC DESCRIPTION BLOOD 02/29/2020 4:[address] [facility] SPECIAL REQUESTS NO SPECIAL REQUEST 02/29/2020 4:[address] [facility] CULTURE RESULT NO GROWTH 5 DAYS 03/06/2020 1:[address] [facility] BLOOD SPECIMEN OBTAINED FOR BLOOD CULTURE / Unknown 02/29/2020 8:30 PM CDT 02/29/2020 10:09 PM CDT Isela Fitzpatrick MD MICROBIOLOGY - GENERAL OR DERABLES Final Result Performing Organization Address [facility] [address] [facility] de Phone Number [facility] [address] [place] [address], [phone] * (ABNORMAL) BIOFIRE PCR UPPER RESPIRATORY PROFILE (RESPIRATORY PCR PANEL 2) (02/29/2020 4:28 PM CDT) [facility] ADENOVIRUS PCR (RESP) NOT DETECTED NOT DETECTED 02/29/2020 5:[address] [facility] CORONAVIRUS 229E PCR (RESP) NOT DETECTED NOT DETECTED 02/29/2020 5:[address] [facility] CORONAVIRUS HKU1 PCR (RESP) NOT DETECTED NOT DETECTED 02/29/2020 5:[address] [facility] CORONAVIRUS NL63 PCR (RESP) NOT DETECTED NOT DETECTED 02/29/2020 5:[address] [facility] CORONAVIRUS OC43 PCR (RESP) NOT DETECTED NOT DETECTED 02/29/2020 5:[address] [facility] METAPNEUMOVIRUS PCR (RESP) NOT DETECTED NOT DETECTED 02/29/2020 5:[address] [facility] RHINOVIRUS/ENTEROV IRUS PCR (RESP) NOT DETECTED NOT DETECTED 02/29/2020 5:[address] [facility] INFLUENZA A PCR (RESP) NOT DETECTED NOT DETECTED 02/29/2020 5:[address] [facility] INFLUENZA B PCR (RESP) NOT DETECTED NOT DETECTED 02/29/2020 5:[address] [facility] PARAINFLUENZA 1 PCR (RESP) NOT DETECTED NOT DETECTED 02/29/2020 5:[address] [facility] PARAINFLUENZA 2 PCR (RESP) NOT DETECTED NOT DETECTED 02/29/2020 5:[address] [facility] PARAINFLUENZA 3 PCR (RESP) NOT DETECTED NOT DETECTED 02/29/2020 5:[address] [facility] PARAINFLUENZA 4 PCR (RESP) NOT DETECTED NOT DETECTED 02/29/2020 5:[address] [facility] RSV PCR (RESP) NOT DETECTED NOT DETECTED 02/29/2020 5:[address] [facility] B PARAPERTUSIS PCR (RESP) NOT DETECTED NOT DETECTED 02/29/2020 5:[address] [facility] BORDETELLA PERTUSSIS PCR (RESP) NOT DETECTED NOT DETECTED 02/29/2020 5:[address] [facility] CHLAMYDOPHILA PNEUMONIAE PCR (RESP) NOT DETECTED NOT DETECTED 02/29/2020 5:[address] [facility] MYCOPLASMA PNEUMONIAE PCR (RESP) NOT DETECTED NOT DETECTED 02/29/2020 5:[address] [facility] CORONAVIRUS SARS COV 2 PCR (RESP) DETECTED(AA ) NOT DETECTED 02/29/2020 5:[address] [facility] Comment: RESULTS PHONED TO AND READ BACK BY: Jacquelin PEREZLIFE SCIENCES INSTRUCTOR @1730 02/29/20 [place] THE SARS-CoV-2 TEST HAS BEEN AUTHORIZED BY THE FDA UNDER AN EUA FOR USE BY AUTHORIZED LABORATORIES. NASOPHARYNGEAL STRUCTURE / Unknown 02/29/2020 4:28 PM CDT us Isela Fitzpatrick MD MICROBIOLOGY - GENERAL OR DERABLES Final Result [facility] [address] [place] [address], [id number] documented in this encounter Visit Diagnoses Diagnosis Respiratory failure ([facility]) Acute respiratory failure documented in this encounter Administered Medications Inactive Administered Medications - up to 3 most recent administrations Medication Order MAR Action Action Date Dose Rate Site acetaminophen (TYLENOL) tablet 650 mg 650 mg, Oral, Every 6 hours PRN, Mild pain (Scale 1 - 3), Starting on Fri02/29/20 at 1703, Until Fri03/08/20 at 1125, Maximum dose of acetaminophen is 4000 mg from all sources in 24 hours. Given 03/05/2020 8:37 AM CDT 650 mg Given 03/02/2020 2:16 PM CDT 650 mg Given 03/02/2020 4:09 AM CDT 650 mg acetaminophen (TYLENOL) tablet 650 mg 650 mg, Oral, Every 6 hours scheduled (4 times per day), First dose on Fri03/08/20 at 1200, Until Discontinued, Maximum dose of acetaminophen is 4000 mg from all sources in 24 hours. Given 03/12/2020 12:39 PM CDT 650 mg Given 03/12/2020 5:53 AM CDT 650 mg Given 03/11/2020 11:38 PM CDT 650 mg albumin human 25 % solution 25 g 25 g, Intravenous, Every 6 hours, 4 doses, First dose on Fri03/07/20 at 1800, Last dose on Fri03/08/20 at 1200, DAVIS brand REQUIRES albumin tubing and filter. Other brands do NOT require tubing/filter. In emergencies, may administer as rapidly as necessary to improve clinical condition. After initial volume replacement: do not exceed 1 mL/min in patients with normal plasma volume. New Bag 03/08/2020 12:06 PM CDT 25 g New Bag 03/08/2020 6:03 AM CDT 25 g New Bag 03/08/2020 1:00 AM CDT 25 g albuterol sulfate HFA 108 (90 Base) MCG/ACT inhaler 2 puff 2 puff, Inhalation, Every 4 hours PRN, Shortness of breath, Starting on Fri02/29/20 at 1639, Until Fri03/12/20 at 1643 Given 03/06/2020 9:44 AM CDT 2 puffs Given 03/05/2020 4:44 PM CDT 2 puffs Given 03/05/2020 12:00 AM CDT 2 puffs alteplase (CATHFLO) injection 2 mg 2 mg, Intravenous, Once, 1 dose, On Fri03/03/20 at 1100, Reconstitute to a final concentration of 1 mg/mL: 1. Aseptically withdraw 2.2 mL of Sterile Water for Injection. Do not use Bacteriostatic Water for Injection. 2. Inject the 2.2 mL of Sterile Water for Injection into the Cathflo Activase vial, directing the diluent stream into the powder. Slight foaming is not unusual; let the vial stand undisturbed to allow large bubbles to dissipate. 3. Mix by gently swirling until the contents are completely dissolved. Complete dissolution should occur within 3 minutes. DO NOT SHAKE. Given 03/04/2020 12:13 AM CDT 2 mg aspirin chewable tablet 81 mg 81 mg, Oral, Daily, First dose on Fri02/29/20 at 1700, Until Discontinued Given 03/12/2020 9:23 AM CDT 81 mg Given 03/11/2020 9:04 AM CDT 81 mg Given 03/10/2020 9:55 AM CDT 81 mg atenolol (TENORMIN) tablet 100 mg 100 mg, Oral, Nightly, First dose on Fri02/29/20 at 2100, Until Discontinued Given 03/02/2020 8:56 PM CDT 100 mg Given 03/01/2020 8:33 PM CDT 100 mg Given 02/29/2020 9:48 PM CDT 100 mg azithromycin (ZITHROMAX) 500 mg in sodium chloride 0.9 % 250 mL IVPB 500 mg, Intravenous, at 250 mL/hr, Every 24 hours, 5 doses, First dose on Fri02/29/20 at 1900, Last dose on Fri03/04/20 at 2100 [facility] 03/04/2020 8:26 PM CDT 500 mg 250 mL/h r [facility] 03/03/2020 7:53 PM CDT 500 mg 250 mL/hr [facility] 03/02/2020 10:23 PM CDT 500 mg 250 mL/hr cefTRIAXone (ROCEPHIN) 1 g in sodium chloride 0.9 % 50 mL IVPB 1 g, Intravenous, at 100 mL/hr, Every 24 hours, First dose on Fri02/29/20 at 1830, Until Discontinued [facility] 02/29/2020 10:46 PM CDT 1 g 10 0 mL/hr cefTRIAXone (ROCEPHIN) 2 g in sodium chloride 0.9 % 50 mL IVPB 2 g, Intravenous, at 100 mL/hr, Every 24 hours, 6 doses, First dose (after last modification) on Fri03/01/20 at 2100, Last dose on Fri03/06/20 at 2100 [facility] 03/05/2020 10:54 PM CDT 2 g 100 mL/hr [facility] 03/04/2020 8:35 PM CDT 2 g 100 mL/hr [facility] 03/03/2020 9:17 PM CDT 2 g 100 mL/hr citalopram (CeleXA) tablet 10 mg 10 mg, Oral, Daily, First dose on Fri03/01/20 at 1000, Until Discontinued, Therapeutic interchange for escitalopram 5 mg Given 03/06/2020 9:40 AM CDT 10 mg Given 03/05/2020 8:38 AM CDT 10 mg Given 03/04/2020 9:35 AM CDT 10 mg citalopram (CeleXA) tablet 20 mg 20 mg, Oral, Daily, First dose (after last modification) on Fri03/07/20 at 0900, Until Discontinued, Therapeutic interchange for escitalopram 5 mg Given 03/12/2020 9:23 AM CDT 20 mg Given 03/11/2020 9:03 AM CDT 20 mg Given 03/10/2020 9:56 AM CDT 20 mg clonazePAM (klonoPIN) tablet 0.5 mg 0.5 mg, Oral, 2 times daily, First dose on Fri03/06/20 at 1415, Until Discontinued, HAZARDOUS MEDICATION Given 03/12/2020 9:22 AM CDT 0.5 mg Given 03/11/2020 11:37 PM CDT 0.5 mg Given 03/11/2020 9:03 AM CDT 0.5 mg cyclobenzaprine (FLEXERIL) tablet 10 mg 10 mg, Oral, Every 12 hours scheduled (2 times per day), First dose on Fri03/08/20 at 1145, Until Discontinued Given 03/12/2020 9:22 AM CDT 10 mg Given 03/11/2020 11:36 PM CDT 10 mg Given 03/11/2020 9:05 AM CDT 10 mg dexamethasone (DECADRON) injection 6 mg 6 mg, Intravenous, Every 12 hours, First dose on Fri03/01/20 at 0900, Until Discontinued, If giving intravenously, administer slowly over 1-4 minutes. Given 03/12/2020 9:23 AM CDT 6 mg Given 03/11/2020 11:39 PM CDT 6 mg Given 03/11/2020 9:05 AM CDT 6 mg dexmedetomidine (PRECEDEX) 4 mcg/mL in sodium chloride 0.9 % 100 mL infusion 0.1-1.4 mcg/kg/hr ? 184.9 kg (4.6225-64.715 mL/hr, rounded to 4.62-64.72 mL/hr), Intravenous, Continuous, Starting on Fri03/03/20 at 1030, Until 03/04/20 at 0817, INITIAL RATE: 0.2 mcg/kg/hr TITRATE BY: 0.1 mcg/kg/hr every 10 minutes May titrate every 30 minutes to reduce hypotension GOAL: RASS score of -2 MAXIMUM RATE: 1.4 mcg/kg/hr WEAN BY: 0.1 mcg/kg/hr every 10 minutes NOTIFY PROVIDER if HR less than 50 bpm, SBP less than 90 mmHg, respiratory rate less than 10 breaths per min, SpO2 less than 92% - RAPIDLY WEAN DRIP. SPECIAL INSTRUCTIONS: - RASS/CPOT score must be documented for each rate/dose change. Rate/Dose Change 03/03/2020 2:21 PM CDT 0.6 mcg/kg/hr 27.7 mL/hr New Bag 03/03/2020 2:07 PM CDT 0.2 mcg/kg/hr 9.25 mL/hr dexmedetomidine (PRECEDEX) 4 mcg/mL in sodium chloride 0.9 % 100 mL infusion 0.1-1.4 mcg/kg/hr ? 184.9 kg (4.6225-64.715 mL/hr, rounded to 4.62-64.72 mL/hr), Intravenous, Continuous, Starting on Fri03/06/20 at 1930, Until Fri03/06/20 at 2351, INITIAL RATE: 0.2 mcg/kg/hr TITRATE BY: 0.1 mcg/kg/hr every 10 minutes May titrate every 30 minutes to reduce hypotension GOAL: RASS score of -2 MAXIMUM RATE: 1.4 mcg/kg/hr WEAN BY: 0.1 mcg/kg/hr every 10 minutes NOTIFY PROVIDER if HR less than 50 bpm, SBP less than 90 mmHg, respiratory rate less than 10 breaths per min, SpO2 less than 92% - RAPIDLY WEAN DRIP. SPECIAL INSTRUCTIONS: - RASS/CPOT score must be documented for each rate/dose change. Rate/Dose Change 03/06/2020 11:50 PM CDT 1 mcg/kg/hr 46.2 mL/hr Rate/Dose Change 03/06/2020 11:18 PM CDT 0.4 mcg/kg/hr 18. 49 mL/hr Rate/Dose Change 03/06/2020 10:22 PM CDT 0.3 mcg/kg/hr 13. 87 mL/hr dexmedetomidine (PRECEDEX) 4 mcg/mL in sodium chloride 0.9 % 200 mL infusion 0.1-1.4 mcg/kg/hr ? 184.9 kg (4.6225-64.715 mL/hr, rounded to 4.62-64.72 mL/hr), Intravenous, Continuous, Starting on Tu03/07/20 at 0015, Until Valery 03/09/20 at 1608, INITIAL RATE: 0.2 mcg/kg/hr TITRATE BY: 0.1 mcg/kg/hr every 10 minutes May titrate every 30 minutes to reduce hypotension GOAL: RASS score of -2 MAXIMUM RATE: 1.4 mcg/kg/hr WEAN BY: 0.1 mcg/kg/hr every 10 minutes NOTIFY PROVIDER if HR less than 50 bpm, SBP less than 90 mmHg, respiratory rate less than 10 breaths per min, SpO2 less than 92% - RAPIDLY WEAN DRIP. SPECIAL INSTRUCTIONS: - RASS/CPOT score must be documented for each rate/dose change. Rate/Dose Change 03/07/2020 8:19 AM CDT 0.5 mcg/kg/hr 23.1 mL/hr New Bag 03/07/2020 5:45 AM CDT 1 mcg/kg/hr 46.2 mL/hr New Bag 03/07/2020 12:47 AM CDT 1 mcg/kg/hr 46.2 mL/hr enoxaparin (LOVENOX) 40 MG/0.4ML syringe 40 mg 40 mg, Subcutaneous, Every 24 hours, First dose on Fri02/29/20 at 2100, Until Discontinued, Administer by deep SubQ injection alternating between the left or right anterolateral and left or right posterolateral abdominal wall. Given 03/02/2020 8:56 PM CDT 40 mg Right Lower Abdomen Given 03/01/2020 8:33 PM CDT 40 mg Ri ght Lower Abdomen Given 02/29/2020 9:49 PM CDT 40 mg Ri ght Lower Abdomen enoxaparin (LOVENOX) 40 MG/0.4ML syringe 40 mg 40 mg, Subcutaneous, Every 12 hours scheduled (2 times per day), First dose on Fri03/10/20 at 2100, Until Discontinued, Administer by deep SubQ injection alternating between the left or right anterolateral and left or right posterolateral abdominal wall. Given 03/12/2020 9:22 AM CDT 40 mg Left Lower Abdomen Given 03/11/2020 11:39 PM CDT 40 mg L eft Lower Abdomen Given 03/11/2020 9:02 AM CDT 40 mg Ri ght Lower Abdomen famotidine (PEPCID) injection 20 mg 20 mg, Intravenous, Every 12 hours scheduled (2 times per day), First dose on Fri02/29/20 at 2100, Until Discontinued, Give if unable to take PO. IV Push over 2 minutes Given 03/03/2020 9:14 PM CDT 20 mg famotidine (PEPCID) tablet 20 mg 20 mg, Oral, Every 12 hours scheduled (2 times per day), First dose on Fri02/29/20 at 2100, Until Discontinued Given 03/12/2020 9:22 AM CDT 20 mg Given 03/11/2020 11:36 PM CDT 20 mg Given 03/11/2020 9:04 AM CDT 20 mg furosemide (LASIX) injection 40 mg 40 mg, Intravenous, 2 times daily, First dose on Fri03/04/20 at 0930, Until Discontinued, Administer IV push 20-40mg/min. Given 03/05/2020 4:42 PM CDT 40 mg Given 03/05/2020 8:39 AM CDT 40 mg Given 03/04/2020 7:43 PM CDT 40 mg furosemide (LASIX) injection 40 mg 40 mg, Intravenous, 3 times daily, First dose (after last modification) on Fri03/06/20 at 0900, Until Discontinued, Administer IV push 20-40mg/min. Given 03/06/2020 9:39 AM CDT 40 mg furosemide (LASIX) injection 80 mg 80 mg, Intravenous, 3 times daily, First dose (after last modification) on Fri03/06/20 at 1600, Until Discontinued, Administer IV push 20-40mg/min. Given 03/09/2020 3:01 PM CDT 80 mg Given 03/09/2020 9:31 AM CDT 80 mg Given 03/08/2020 8:09 PM CDT 80 mg furosemide (LASIX) tablet 40 mg 40 mg, Oral, 2 times daily, First dose on Fri03/10/20 at 0900, Until Discontinued Given 03/12/2020 9:23 AM CDT 40 mg Given 03/11/2020 5:06 PM CDT 40 mg Given 03/11/2020 9:04 AM CDT 40 mg gabapentin (NEURONTIN) capsule 300 mg 300 mg, Oral, Nightly at bedtime, First dose on Fri03/01/20 at 2100, Until Discontinued Given 03/11/2020 11:39 PM C DT 300 mg Given 03/10/2020 8:55 PM CDT 300 mg Given 03/09/2020 10:59 PM CDT 300 mg guaiFENesin (ROBITUSSIN) 100 MG/5ML solution 5 mL 5 mL, Oral, Every 6 hours PRN, Cough, Starting on Fri02/29/20 at 1639, Until 03/12/20 at 1643 guaiFENesin ER (MUCINEX) 12 hr tablet 600 mg 600 mg, Oral, 2 times daily, First dose on Fri03/01/20 at 1030, Until Discontinued, Do not break, chew, or crush. Given 03/12/2020 9:22 AM CDT 600 mg Given 03/11/2020 11:40 PM CDT 600 mg Given 03/11/2020 9:04 AM CDT 600 mg heparin (porcine) injection 10,000 Units 10,000 Units, Intravenous, As needed, Other, for PTT less than 35 or ANTI - XA activity less than 0.1 units, Starting on 03/06/20 at 1246, Until Fri03/10/20 at 1321, SUBSEQUENT BOLUS doses for PTT less than 35 or ANTI - XA activity less than 0.1 units. Maximum 10,000 units. Given 03/09/2020 3:17 PM CDT 10,000 Units Given 03/08/2020 7:09 PM CDT 10,000 Units Given 03/08/2020 9:50 AM CDT 10,000 Units heparin (porcine) injection 7,400 Units 7,400 Units (rounded from 7,396 Units = 40 Units/kg ? 184.9 kg), Intravenous, As needed, Other, for PTT 35 through 59 or ANTI-XA activity 0.1-0.29 units, Starting on 03/04/20 at 0820, Until 03/05/20 at 2057, SUBSEQUENT BOLUS doses for PTT 35 through 59 or ANTI-XA activity 0.1-0.29 units. Maximum 10,000 units. Given 03/05/2020 4:41 PM CDT 7,400 Units Given 03/05/2020 3:40 AM CDT 7,400 Units heparin 25,000 units/250 mL infusion 0-20 Units/kg/hr ? 184.9 kg (0-36.98 mL/hr, rounded to 0-37 mL/hr), Intravenous, Continuous, Starting on 03/04/20 at 0845, Until 03/05/20 at 2057, Medical Heparin Management for PTT Nomogram (Calculator). MAX Initial Infusion 2,000 units/hr. Use the Protocol button Yes to calculate initial infusion rate of 18 units/kg/hr. Rate/Dose Change 03/05/2020 4:44 PM CDT 14.8 Units/kg/hr 27.4 mL/hr Rate/Dose Change 03/05/2020 3:39 AM CDT 12.8 Units/kg/hr 2 3.7 mL/hr Rate/Dose Verify 03/04/2020 8:29 PM CDT 10.8 Units/kg/hr 2 0 mL/hr heparin 25,000 units/250 mL infusion 0-20 Units/kg/hr ? 184.9 kg (0-36.98 mL/hr, rounded to 0-37 mL/hr), Intravenous, Continuous, Starting on Fri03/06/20 at 1115, Until Fri03/10/20 at 1254, Medical Heparin Management for PTT Nomogram (Calculator). MAX Initial Infusion 2,000 units/hr. Use the Protocol button Yes to calculate initial infusion rate of 18 units/kg/hr. Rate/Dose Change 03/10/2020 2:42 AM CDT 13.8 Units/kg/hr 25.5 mL/hr Rate/Dose Change 03/09/2020 3:18 PM CDT 15.8 Units/kg/hr 2 9.2 mL/hr New Bag 03/09/2020 9:53 AM CDT 11.8 Units/kg/hr 21.8 mL /hr hydroCHLOROthiazide (HYDRODIURIL) tablet 25 mg 25 mg, Oral, Every morning, First dose on Fri03/01/20 at 0700, Until Discontinued Given 03/01/2020 6:32 AM CDT 25 mg HYDROmorphone (DILAUDID) injection 0.3 mg 0.3 mg, Intravenous, Every 2 hours PRN, Severe pain (Scale 8 - 10), Starting on Fri03/06/20 at 2334, Until Fri03/07/20 at 1119, Administer slowly over at least 2-3 minutes. Given 03/06/2020 11:47 PM CDT 0.3 mg HYDROmorphone (DILAUDID) injection 0.3 mg 0.3 mg, Intravenous, Once, 1 dose, On Fri03/08/20 at 0300, Administer slowly over at least 2-3 minutes. Given 03/08/2020 3:12 AM CDT 0.3 mg iopamidol (ISOVUE-370) 76 % injection 80 mL 80 mL, Intravenous, IMG once as needed, Contrast, 1 dose, Starting on Fri03/03/20 at 1712, Until Fri03/03/20 at 1713 Given 03/03/2020 5:13 PM CDT 80 mLs lidocaine 4 % patch 1 patch 1 patch, Transdermal, Administer over 12 Hours, Every 24 hours, First dose on Valery 03/09/20 at 1700, Until Discontinued Patch Applied 03/11/2020 5:06 PM CDT 1 patch Other Patch Applied 03/10/2020 5:04 PM CDT 1 patch Other LORazepam (ATIVAN) injection 0.5 mg 0.5 mg, Intravenous, Every 6 hours PRN, Anxiety, Starting on Fri03/03/20 at 2100, Until 03/12/20 at 1643, For IV use, further dilute with an equal volume of saline. Do not exceed a rate of 2 mg/min. Given 03/10/2020 2:12 PM CDT 0.5 mg Given 03/08/2020 11:38 PM CDT 0.5 mg Given 03/07/2020 8:51 PM CDT 0.5 mg LORazepam (ATIVAN) injection 1 mg 1 mg, Intravenous, Once, 1 dose, On Fri03/03/20 at 1515, For IV use, further dilute with an equal volume of saline. Do not exceed a rate of 2 mg/min. Given 03/03/2020 3:40 PM CDT 1 mg LORazepam (ATIVAN) tablet 0.5 mg 0.5 mg, Oral, Every 6 hours PRN, Anxiety, Starting on Fri03/01/20 at 0944, Until Fri03/03/20 at 1007 Given 03/02/2020 8:55 PM CDT 0.5 mg Given 03/02/2020 8:49 AM CDT 0.5 mg Given 03/01/2020 10:24 PM CDT 0.5 mg LORazepam (ATIVAN) tablet 1 mg 1 mg, Oral, Every 8 hours PRN, Anxiety, Starting on Fri02/29/20 at 2000, Until Fri03/01/20 at 1009 Given 03/01/2020 9:36 AM CDT 1 mg Given 02/29/2020 9:48 PM CDT 1 mg losartan (COZAAR) tablet 50 mg 50 mg, Oral, Daily, First dose on Fri03/11/20 at 0900, Until Discontinued Given 03/12/2020 9:22 AM CDT 50 mg Given 03/11/2020 12:58 PM CDT 50 mg melatonin tablet 5 mg 5 mg, Oral, Nightly PRN, insomnia, Starting on Fri03/01/20 at 1928, Until 03/12/20 at 1643 Given 03/11/2020 11: 35 PM CDT 5 mg Given 03/04/2020 8:30 PM CDT 5 mg Given 03/02/2020 8:56 PM CDT 5 mg naLOXone (NARCAN) injection 0.4 mg 0.4 mg, Intravenous, As needed, Opioid reversal, Starting on Fri03/03/20 at 1009, Until Fri03/12/20 at 1643 ondansetron (ZOFRAN) injection 4 mg 4 mg, Intravenous, Every 8 hours PRN, Nausea, Vomiting, Starting on Fri02/29/20 at 1625, Until Fri03/12/20 at 1643, IV push over 2-5 minutes. Given 03/02/2020 2:16 PM CDT 4 mg Given 03/01/2020 10:24 PM CDT 4 mg oxybutynin (DITROPAN) tablet 10 mg 10 mg, Oral, 2 times daily, First dose on Fri03/01/20 at 2100, Until Discontinued Given 03/12/2020 9:22 AM CDT 10 mg Given 03/11/2020 11:36 PM CDT 10 mg Given 03/11/2020 9:03 AM CDT 10 mg pantoprazole (PROTONIX) 40 mg in sodium chloride (PF) 0.9 % 10 mL IV 40 mg, Intravenous, Daily, First dose on Valery 03/09/20 at 2000, Until Discontinued, Reconstitute each 40 mg vial with 10 mL normal saline to a final concentration of 4 mg/mL. Administer intravenously over a period of a least 2 minutes. Given 03/12/2020 9:22 AM CDT 40 mg Given 03/11/2020 9:03 AM CDT 40 mg Given 03/10/2020 9:55 AM CDT 40 mg perflutren lipid microsphere (DEFINITY) injection 1 mL 1 mL, Intravenous, IMG once as needed, Contrast, 1 dose, Starting on 03/04/20 at 1546, Until 03/04/20 at 1446, Administer over 30-60 seconds. Follow with 10 mL saline flush. Given 03/04/2020 2:46 PM CDT 1 mL polyethylene glycol (GLYCOLAX) packet 17 g 17 g, Oral, Daily as needed, Constipation, Starting on Fri03/03/20 at 1009, Until Fri03/12/20 at 1643 potassium chloride 40 mEq in NS 500 mL IVPB 40 mEq, Intravenous, Administer over 240 Minutes, Once, 1 dose, On Fri03/01/20 at 2000, MAX rate in peripheral line of 10 mEq per hour. New Bag 03/01/2020 8:25 PM CDT 40 mE q 125 mL/hr potassium chloride 40 mEq in SW 100 mL IVPB 40 mEq, Intravenous, Administer over 120 Minutes, Once, 1 dose, On Fri03/06/20 at 1430, CENTRAL LINE ONLY For CENTRAL line only New Bag 03/06/2020 4:19 PM CDT 40 mEq 50 mL/hr potassium chloride 40 mEq in SW 100 mL IVPB 40 mEq, Intravenous, Administer over 120 Minutes, Once, 1 dose, On [place]ery 03/09/20 at 0830, CENTRAL LINE ONLY For CENTRAL line only New Bag 03/09/2020 9:34 AM CDT 40 mEq 50 mL/hr potassium chloride CR (KLOR-CON M) tablet 40 mEq 40 mEq, Oral, Once, 1 dose, On Fri03/01/20 at 2000, Do not chew, crush, or suck on tablet. May break in half. May dissolve whole tablet in 120 mL of water and drink immediately. Given 03/01/2020 8:33 PM CDT 40 mEq potassium chloride CR (KLOR-CON M) tablet 40 mEq 40 mEq, Oral, Once, 1 dose, On [place]ery 03/02/20 at 0745, Do not chew, crush, or suck on tablet. May break in half. May dissolve whole tablet in 120 mL of water and drink immediately. Given 03/02/2020 8:50 AM CDT 40 mEq potassium chloride CR (KLOR-CON M) tablet 40 mEq 40 mEq, Oral, Every 12 hours scheduled (2 times per day), First dose on Fri03/06/20 at 2100, Until Discontinued, Do not chew, crush, or suck on tablet. May break in half. May dissolve whole tablet in 120 mL of water and drink immediately. Given 03/07/2020 8:12 AM CDT 40 mEq Given 03/06/2020 9:12 PM CDT 40 mEq potassium chloride CR (KLOR-CON M) tablet 60 mEq 60 mEq, Oral, Once, 1 dose, On [facility] 03/04/20 at 0900, Do not chew, crush, or suck on tablet. May break in half. May dissolve whole tablet in 120 mL of water and drink immediately. Given 03/04/2020 9:34 AM CDT 60 mEq potassium chloride CR (KLOR-CON M) tablet 60 mEq 60 mEq, Oral, Once, 1 dose, On [place] 03/09/20 at 0800, Do not chew, crush, or suck on tablet. May break in half. May dissolve whole tablet in 120 mL of water and drink immediately. Given 03/09/2020 9:32 AM CDT 60 mEq potassium chloride CR (KLOR-CON M) tablet 60 mEq 60 mEq, Oral, Once, 1 dose, On [place]ery 03/09/20 at 1245, Do not chew, crush, or suck on tablet. May break in half. May dissolve whole tablet in 120 mL of water and drink immediately. Given 03/09/2020 3:00 PM CDT 60 mEq remdesivir 100 mg in sodium chloride 0.9 % 250 mL IVPB 100 mg, Intravenous, Every 24 hours, 4 doses, First dose (after last reorder) on Fri03/03/20 at 0300, Last dose on Fri03/06/20 at 0300, Do not administer simultaneously with any other medications. If signs and symptoms of a clinically significant infusion reaction occur, immediately stop administration and notify provider for further instructions. Flush before and after administration with at least 30 ml NS. New Bag 03/03/2020 3:30 AM CDT 100 mg remdesivir 100 mg in sodium chloride 0.9 % 250 mL IVPB 100 mg, Intravenous, Every 24 hours, 3 doses, First dose (after last reorder) on Fri03/04/20 at 0300, Last dose on Fri03/06/20 at 0300, Must send med message to IV room at least 30 minutes prior to needing next dose due to short stability., Do not administer simultaneously with any other medications. If signs and symptoms of a clinically significant infusion reaction occur, immediately stop administration and notify provider for further instructions. Flush before and after administration with at least 30 ml NS. New Bag 03/06/2020 3:03 AM CDT 100 mg New Bag 03/05/2020 3:37 AM CDT 100 mg 250 mL/hr New Bag 03/04/2020 3:42 AM CDT 100 mg 250 mL/hr remdesivir 200 mg in sodium chloride 0.9 % 250 mL IVPB 200 mg, Intravenous, Every 24 hours, 1 dose, First dose (after last reorder) on Fri03/01/20 at 1400, Do not administer simultaneously with any other medications. If signs and symptoms of a clinically significant infusion reaction occur, immediately stop administration and notify provider for further instructions. Flush before and after administration with at least 30 ml NS. New Bag 03/02/2020 3:00 AM CDT 200 mg Senna (SENOKOT) 8.6 MG tablet 8.6 mg 8.6 mg, Oral, Daily as needed, Constipation, Starting on Fri02/29/20 at 1625, Until Fri03/12/20 at 1643, If both senna and polyethylene glycol are ordered, use as 2nd choice. sodium chloride 0.9% bolus infusion SOLN 30 mL 30 mL, Intravenous, Administer over 15 Minutes, See admin instructions, Starting on Fri03/01/20 at 1400, Until Fri03/06/20 at 1359, Infuse 30 mLs before and after the remdesivir infusion New Bag 03/02/2020 3:00 AM CDT 30 mLs sodium chloride 0.9% bolus infusion SOLN 500 mL 500 mL, Intravenous, Administer over 15 Minutes, Once, 1 dose, On Fri02/29/20 at 1730 New Bag 02/29/2020 9:51 PM CDT 500 mLs sodium chloride 0.9% infusion at 75 mL/hr, Intravenous, Continuous, Starting on Fri02/29/20 at 1645, Until Fri03/01/20 at 0734 New Bag 02/29/2020 10:44 PM CDT 75 mL/hr traMADol (ULTRAM) tablet 50 mg 50 mg, Oral, Every 6 hours PRN, Moderate pain (Scale 4 - 7), Starting on Fri03/08/20 at 1124, Until Fri03/12/20 at 1643 Given 03/11/2020 11:37 PM CDT 50 mg Given 03/10/2020 8:55 PM CDT 50 mg Given 03/10/2020 3:47 AM CDT 50 mg documented in this encounter Active and Recently Administered Medications Times are shown in CDT. Scheduled Medication Order 03/10/2020 03/11/2020 03/12/2020 acetaminophen (TYLENOL) tablet 650 mg 650 mg, Oral, Every 6 hours scheduled (4 times per day), First dose on Fri03/08/20 at 1200, Until Discontinued, Maximum dose of acetaminophen is 4000 mg from all sources in 24 hours. 0659 (Given - Provider: Jaquan Graves RN)1346 (Given - Provider: Amy Carmona RN)1703 (Given - Provider: Amy Carmona RN) 0008 (Given - Provider: Jaquan Graves RN)0600 (Given - Provider: Jaquan Graves RN)1258 (Given - Provider: Amy Carmona RN)1706 (Given - Provider: Amy Carmona RN)2338 (Given - Provider: Josey Lopez, CHARLEY) 0553 (Given - Provider: Josey Lopez RN)1239 (Given - Provider: Yaz Bangura) aspirin chewable tablet 81 mg 81 mg, Oral, Daily, First dose on Fri02/29/20 at 1700, Until Discontinued 0955 (Given - Provider: Amy Carmona RN) 0904 (Given - Provider: Amy Carmona RN) 0923 (Given - Provider: Yaz Bangura) citalopram (CeleXA) tablet 20 mg 20 mg, Oral, Daily, First dose (after last modification) on Fri03/07/20 at 0900, Until Discontinued, Therapeutic interchange for escitalopram 5 mg 0956 (Given - Provider: Amy Carmona RN) 0903 (Given - Provider: Amy Carmona RN) 0923 (Given - Provider: Yaz Bangura) clonazePAM (klonoPIN) tablet 0.5 mg 0.5 mg, Oral, 2 times daily, First dose on Fri03/06/20 at 1415, Until Discontinued, HAZARDOUS MEDICATION 0956 (Given - Provider: Amy Carmona RN)2055 (Given - Provider: Jaquan Graves RN) 09 (Given - Provider: Amy Carmona RN)2337 (Given - Provider: Josey Lopez RN) 0922 (Given - Provider: Yaz Bangura) cyclobenzaprine (FLEXERIL) tablet 10 mg 10 mg, Oral, Every 12 hours scheduled (2 times per day), First dose on Fri03/08/20 at 1145, Until Discontinued 0956 (Given - Provider: Amy Carmona RN)2054 (Given - Provider: Jaquan Graves RN) 904 (Given - Provider: Amy Carmona RN)2335 (Given - Provider: Josey Lopez, CHARLEY) 921 (Given - Provider: Yaz Bangura) dexamethasone (DECADRON) injection 6 mg 6 mg, Intravenous, Every 12 hours, First dose on Fri03/01/20 at 0900, Until Discontinued, If giving intravenously, administer slowly over 1-4 minutes. 09 (Given - Provider: Amy Carmona RN)2054 (Given - Provider: Jaquan Graves RN) 904 (Given - Provider: Aym Carmona RN)2338 (Given - Provider: Josey Lopez, CHARLEY) 922 (Given - Provider: Yaz Bangura) enoxaparin (LOVENOX) 40 MG/0.4ML syringe 40 mg 40 mg, Subcutaneous, Every 12 hours scheduled (2 times per day), First dose on Fri03/10/20 at 2100, Until Discontinued, Administer by deep SubQ injection alternating between the left or right anterolateral and left or right posterolateral abdominal wall. 2056 (Given - Provider: Jaquan Graves RN) 901 (Given - Provider: Amy Carmona RN)2338 (Given - Provider: Josey Lopez, CHARLEY) 921 (Given - Provider: Yaz Bangura) famotidine (PEPCID) injection 20 mg(Linked Group 1) 20 mg, Intravenous, Every 12 hours scheduled (2 times per day), First dose on Fri02/29/20 at 2100, Until Discontinued, Give if unable to take PO. IV Push over 2 minutes 954 (See Alternative - Provider: Amy Carmona RN)2054 (See Alternative - Provider: Jaquan Garves RN) 903 (See Alternative - Provider: Amy Carmona RN)2335 (See Alternative - Provider: Josey Lopez RN) 921 (See Alternative - Provider: Yaz Bangura) famotidine (PEPCID) tablet 20 mg(Linked Group 1) 20 mg, Oral, Every 12 hours scheduled (2 times per day), First dose on Fri02/29/20 at 2100, Until Discontinued 09 (Given - Provider: Amy Carmona RN)2054 (Given - Provider: Jaquan Graves RN) 09 (Given - Provider: Amy Carmona RN)233 (Given - Provider: Josey Lopez RN) 09 (Given - Provider: Yaz Bangura) furosemide (LASIX) tablet 40 mg 40 mg, Oral, 2 times daily, First dose on Fri03/10/20 at 0900, Until Discontinued 955 (Given - Provider: Amy Carmona RN)1704 (Given - Provider: Amy Carmona RN) 09 (Given - Provider: Amy Carmona RN)170 (Given - Provider: Amy Carmona RN) 09 (Given - Provider: Yaz Bangura) gabapentin (NEURONTIN) capsule 300 mg 300 mg, Oral, Nightly at bedtime, First dose on Fri03/01/20 at 2100, Until Discontinued 2054 (Given - Provider: Jaquan Graves RN) 2338 (Given - Provider: Josey Lopez RN) guaiFENesin ER (MUCINEX) 12 hr tablet 600 mg 600 mg, Oral, 2 times daily, First dose on Fri03/01/20 at 1030, Until Discontinued, Do not break, chew, or crush. 09 (Given - Provider: Amy Carmona RN)2054 (Given - Provider: Jaquan Graves RN) 09 (Given - Provider: Amy Carmona RN)2339 (Given - Provider: Josey Lopez RN) 09 (Given - Provider: Yaz Bangura) lidocaine 4 % patch 1 patch 1 patch, Transdermal, Administer over 12 Hours, Every 24 hours, First dose on Fri03/09/20 at 1700, Until Discontinued 170 (Patch Applied - Provider: Amy Carmona RN) 0500 (Patch Removed - Provider: Jaquan Graves RN)170 (Patch Applied - Provider: Amy Carmona RN) 0554 (Patch Removed - Provider: Josey Lopez RN) losartan (COZAAR) tablet 50 mg 50 mg, Oral, Daily, First dose on Fri03/11/20 at 0900, Until Discontinued 1258 (Given - Provider: Amy Carmona RN) 0922 (Given - Provider: Yaz Bangura) oxybutynin (DITROPAN) tablet 10 mg 10 mg, Oral, 2 times daily, First dose on Fri03/01/20 at 2100, Until Discontinued 0956 (Given - Provider: Amy Carmona RN)2054 (Given - Provider: Jaquan Graves RN) 09 (Given - Provider: Amy Carmona RN)233 (Given - Provider: Josey Lopez RN) 0922 (Given - Provider: Yaz Bangura) pantoprazole (PROTONIX) 40 mg in sodium chloride (PF) 0.9 % 10 mL IV 40 mg, Intravenous, Daily, First dose on [place] 03/09/20 at 2000, Until Discontinued, Reconstitute each 40 mg vial with 10 mL normal saline to a final concentration of 4 mg/mL. Administer intravenously over a period of a least 2 minutes. 0955 (Given - Provider: Amy Carmona RN) 09 (Given - Provider: Amy Carmona RN) 0922 (Given - Provider: Yaz Bangura) potassium chloride CR (KLOR-CON M) tablet 40 mEq 40 mEq, Oral, Once, 1 dose, On [place] 03/09/20 at 1630, Do not chew, crush, or suck on tablet. May break in half. May dissolve whole tablet in 120 mL of water and drink immediately. Continuous Medication Order 03/10/2020 03/11/2020 03/12/2020 heparin 25,000 units/250 mL infusion (CANCELED) 0-20 Units/kg/hr ? 184.9 kg (0-36.98 mL/hr, rounded to 0-37 mL/hr), Intravenous, Continuous, Starting on 03/06/20 at 1115, Until Fri03/10/20 at 1254, Medical Heparin Management for PTT Nomogram (Calculator). MAX Initial Infusion 2,000 units/hr. Use the Protocol button Yes to calculate initial infusion rate of 18 units/kg/hr. 0242 (Rate/Dose Change - Provider: Jaquan Graves RN)1345 (Infusion Stop Time - Provider: Amy Carmona RN) PRN Medication Order 03/10/2020 03/11/2020 03/12/2020 albuterol sulfate HFA 108 (90 Base) MCG/ACT inhaler 2 puff 2 puff, Inhalation, Every 4 hours PRN, Shortness of breath, Starting on Fri02/29/20 at 1639, Until Fri03/12/20 at 1643 guaiFENesin (ROBITUSSIN) 100 MG/5ML solution 5 mL 5 mL, Oral, Every 6 hours PRN, Cough, Starting on Fri02/29/20 at 1639, Until Fri03/12/20 at 1643 LORazepam (ATIVAN) injection 0.5 mg 0.5 mg, Intravenous, Every 6 hours PRN, Anxiety, Starting on Fri03/03/20 at 2100, Until Fri03/12/20 at 1643, For IV use, further dilute with an equal volume of saline. Do not exceed a rate of 2 mg/min. 1412 (Given - Provider: Amy Carmona, RN) melatonin tablet 5 mg 5 mg, Oral, Nightly PRN, insomnia, Starting on Fri03/01/20 at 1928, Until Fri03/12/20 at 1643 2335 (Given - Provider: Josey Lopez, CHARLEY) naLOXone (NARCAN) injection 0.4 mg 0.4 mg, Intravenous, As needed, Opioid reversal, Starting on Fri03/03/20 at 1009, Until Fri03/12/20 at 1643 ondansetron (ZOFRAN) injection 4 mg 4 mg, Intravenous, Every 8 hours PRN, Nausea, Vomiting, Starting on Fri02/29/20 at 1625, Until Fri03/12/20 at 1643, IV push over 2-5 minutes. polyethylene glycol (GLYCOLAX) packet 17 g 17 g, Oral, Daily as needed, Constipation, Starting on Fri03/03/20 at 1009, Until Fri03/12/20 at 1643 Senna (SENOKOT) 8.6 MG tablet 8.6 mg 8.6 mg, Oral, Daily as needed, Constipation, Starting on Fri02/29/20 at 1625, Until Fri03/12/20 at 1643, If both senna and polyethylene glycol are ordered, use as 2nd choice. traMADol (ULTRAM) tablet 50 mg 50 mg, Oral, Every 6 hours PRN, Moderate pain (Scale 4 - 7), Starting on Fri03/08/20 at 1124, Until 03/12/20 at 1643 0347 (Given - Provider: Jaquan Graves, CHARLEY)2055 (Given - Provider: Jaquan Graves RN) 2337 (Given - Provider: Josey Lopez, CHARLEY) Linked Groups Order Group 1: famotidine (PEPCID) injection 20 mgJump to med 20 mg, Intravenous, Every 12 hours scheduled (2 times per day), First dose on Fri02/29/20 at 2100, Until Discontinued, Give if unable to take PO. IV Push over 2 minutes Or famotidine (PEPCID) tablet 20 mgJump to med 20 mg, Oral, Every 12 hours scheduled (2 times per day), First dose on Fri02/29/20 at 2100, Until Discontinued documented in this encounter Additional Health Concerns Infection Onset Date Last Indicated Resolved Time COVID-19 Confirmed 02/29/2020 02/29/2020 0 12:33 AM CDT COVID-19 Rule Out 02/29/2020 02/29/2020 02/29/2020 5:59 PM CDT documented as of this encounter Care Teams Golf Manager Relationship Specialty Start Date End Date Cristy Guan MD [address] [place] [address] PCP - General INTERNAL MEDICINE 11/21/19 documented as of this encounter
--- OUTSIDE RECORDS SUMMARY | 2024-07-15 23:58 | XMS_ITS | Encounter Summary ---
Author Organization [facility] Address Formerly [facility] 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 Gender Identity Not on file Sexual Orientation Not on file documented as of this encounter Plan of Treatment Not on file documented as of this encounter Visit Diagnoses Not on filedocumented in this encounter Additional Health Concerns Infection Onset Date Last Indicated Resolved Time COVID-19 Rule Out 11/21/2019 11/21/2019 11/22/2019 4:35 PM CDT COVID-19 Confirmed 02/29/2020 02/29/2020 0 12:33 AM CDT COVID-19 Rule Out 02/29/2020 02/29/2020 02/29/2020 5:59 PM CDT documented as of this encounter Care Teams Laser Beam Cutter Relationship Specialty Start Date End Date Tushar West MD [address] [place] [address] PCP - General INTERNAL MEDICINE 11/21/19 Nas Arndt MD [address] [place] [address] Consulting Physician INTERNAL MEDICINE 09/13/22 Pascual Mccullough MD [address] [place] [address] ORTHOPAEDIC SURGERY 09/13/22 documented as of this encounter
--- OUTSIDE RECORDS SUMMARY | 2024-07-15 23:58 | XMS_ITS | Encounter Summary ---
Author Organization [facility] Address [facility] [place] [address] [place] [address] Care Team Providers Care Vice President Investor Relations Name Role Phone Cristy Guan MD Primary Care Provider [phone] Reason for Visit * Reason Comments Vomiting Headache * Auth/Cert Specialty Diagnoses / Procedures Referred By Luc schwartz Referred To Contact Diagnoses Dehydration Lactic acidosis Gastroenteritis Vomiting Gastroenteritis Lactic acid acidosis Referral ID Status Reason Start Date Expiration Date Visits Re quested Visits Authorized [id number] 1 1 Encounter Details Date Type Department Care Team (Late st Contact Info) Description 11/23/2019 10:46 AM CDT - 11/23/2019 11:17 AM CDT [facility] [place] [address] [place] [address] Caroline Diaz MD [address] [place] [id number] EGD WITH BIOPSIES Surgery Details Date/Time Status Location OR Service Patient Class Case Class Case Type Trauma Case? 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 No / Unsure 11/21/2019 6:50 AM CDT documented as of this encounter Last Filed Vital Signs Vital Sign Reading Time Taken Comments Blood Pressure 133/59 11/23/2019 11:14 AM CDT Pulse 64 11/23/2019 11:14 AM CDT Temperature 36.3 ??C (97.3 ??F) 11/23/2019 11:14 AM C DT Respiratory Rate 16 11/23/2019 11:14 AM CDT Oxygen Saturation 97% 11/23/2019 11:14 AM CDT Inhaled Oxygen Concentration - - [...] office or shopping? No 11/21/2019 9:39 AM CDT Marco Gordon RN Active * RETIRED Are [...] Arteaga RN Active documented in this encounter Discharge [...] Your Medications These medications were sent to [id number] - [place], [place] - [address] [facility] [place] [address] [facility] [id number] ?? omeprazole 40 MG capsule ?? sucralfate [...] Everywhere. * Upper GI Endoscopy Discharge Instructions (Monegasque) * Gastritis Discharge Instructions (Monegasque) documented in this encounter Medications at Time [...] See notes under each care plan * Rosy Malagon, VIANNEY- - 11/23/2019 9:58 AM CDT Daily Progress [...] Hold] carvedilol 12.5 mg Oral BID ??? [SEP Hold] citalopram 10 mg Oral Daily ??? [SEP Hold] gabapentin 300 mg Oral nightly ??? [SEP Hold] hydroCHLOROthiazide 25 mg Oral QAM ??? [SEP Hold] losartan 100 mg Oral Daily ??? [SEP Hold] oxybutynin 5 mg Oral BID ??? lactated ringers [SEP Hold] acetaminophen, [SEP Hold] LORazepam, [SEP Hold] ondansetron, [SEP Hold] traMADol No Known Allergies Review of [...] ice applied to head and neck. * Rosy Malagon, VIANNEY- - 11/22/2019 10:37 AM CDT Daily Progress [...] (ALIX). Signed: Vamsi Degroot M.D. * Shonna Marquita Us - 11/22/2019 9:34 AM CDT Patient lives at home with her . She is independent at home and still works. She does not use any DME's. She has a CPAP machine. There is no additional help in the home. Patient's willtransport home at discharge. No other discharge needs at this time. SW will continue to follow. 11/22/19 0911 Referral Data Referral Reason Discharge Planning Source of Information Patient Patient Information OB Patient < 19 yrs old No Primary Caregiver Self Support System Immediate family Baseline ADL's Functional Status Independent Living Arrangements Spouse/significant other Type of Residence Private residence Ambulation Assistance No Bathing/Grooming Assistance No Dressing Assistance No Behavior Oriented Communication Talks;Understands speaking;Understands Monegasque Socioeconomic Needs Caregiver Needed No At Risk [...] during recuperation were discussed with the patient/family/personal outbound sales representative. Reasonable alternatives to the patient's proposed procedure/surgery including benefits, risks, and side effects related to the alternatives and the risks related to not receiving the proposed care were also discussed with the patient/family/personal outbound sales representative. Questions were answered and the patient/family/personal outbound sales representative verbalized understanding and desires to proceed. [...] known exposure. 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 She said she was not aware of any Covid positive patients in any of those facilities. She did take amoxacillin for a sinus infection about a month ago. The ER doctors (two with overlapping change of shift) called me for admission. and Dr. Thompson were both requested by me to confirm that neither they, nor the [facility] Covid Command Team felt that this patient is a PUI such that the patient should be transferred to [place] for care. They all agreed that she was not a PUI and that she could and should remain at [facility] for care. Her usual primary care physician is in [place], but she did not want to got [...] children, and grandchildren. She works as an clinic administrator for three facilities that care for [...] Range COLOR (U) YELLOW TRANSPARENCY CLEAR Specific [place] (U) 1.025 1.000 - 1.025 U PH [...] encounter of 11/21/19 ECG 12 lead Narrative [address] [place] [address] Test Date: 2019-11-21 Pat Name: ALTHEA KONG Department: Room: 301 Gender: Female Awning Hanger: : 1965 Requested By: RUSSELL GRIMALDO Order Number: [id number] Reading MD: Misbah Garcia Measurements Intervals [place] Rate: 63 P: 46 MA: 177 QRS: -25 QRSD: 101 T: 23 [...] Vitals: 11/21/19 0645 11/21/19 0700 11/21/19 0715 11/21/19 0730 BP: 116/69 135/67 134/65 Pulse: 61 [...] HEAD WO CON Final Result by User, [id number] (11/20 622) EXAMINATION: CT HEAD WITHOUT CONTRAST [...] ABD+PEL W CON Final Result by User, [id number] (11/20 633) EXAMINATION: CT SCAN OF THE [...] pain going to the back 7:30 AM [facility] was contacted for possible transfer 7:[address] Degroot was called for possible admission, he wanted [facility] to be consulted in case the patient [...] Nov 22 2218 Sun November 21, 2019 [address] Ta, hospitalist at [facility]. We discussed the patient's lab work and [...] Grimaldo MD 11/21/19 0803 [place] Grimaldo MD 11/23/190 * Ella Salas RN - 11/21/2019 6:01 [...] - 1.5 % 11/23/2019 12:07 PM CDT [facility] Comment:SMOKER: 0.0-10.0% 11/23/2019 12:0 [address] [facility] Final Res ult [facility] [address] [id number], * ENDOSCOPY (11/23/2019 10:52 AM CDT) Caroline Diaz MD SCANNING Final Result * H PYLORI UREASE (11/23/2019 10:49 AM CDT) SPEC DESCRIPTION GASTRIC BIOPSY 11/23/2019 10:58 AM CDT [facility] SPECIAL REQUESTS NO SPECIAL REQUEST 11/23/2019 10:58 AM CDT [facility] DIRECT EXAM PRESUMPTIVE NEGATIVE FOR H. PYLORI 11/23/2019 3:20 PM CDT [facility] Tissue specimen (specimen) GASTRIC BIOPSY SPECIMEN / Unknown 11/23/2019 10:49 AM CDT Caroline Diaz MD MICROBIOLOGY - GENERAL ORDERA BLES Final Result [facility] [address] [place] [address], * (ABNORMAL) COMPREHENSIVE METABOLIC PANEL (11/23/2019 5:25 AM CDT) SODIUM S/P/B 143 136 - 145 MMOL/L 11/23/2019 6:22 AM CDT [facility] POTASSIUM S/P/B 3.6 3.5 - 5.1 MMOL/L 11/23/2019 6:22 AM CDT [facility] CHLORIDE S/P/B 106 98 - 107 MMOL/L 11/23/2019 6:22 AM CDT [facility] CO2 31.1 21.0 - 32.0 MMOL/L 11/23/2019 6:22 AM CDT [facility] GLUCOSE 100(H) 70 - 99 MG/DL 11/23/2019 6:22 AM CDT [facility] Comment: FASTING GLUCOSE 100 TO 125 MG/DL IS CONSISTENT WITH IMPAIRED FASTING GLUCOSE. FASTING GLUCOSE >125 MG/DL IS CONSISTENT WITH DIABETES. RANDOM GLUCOSE >200 MG/DL WITH HYPERGLYCEMIC SYMPTOMS IS CONSISTENT WITH DIABETES. PER ADA GUIDELINES BUN 6 6 - 24 MG/DL 11/23/2019 6:22 AM CDT [facility] CREATININE S/P/B 0.65 0.55 - 1.02 MG/DL 11/23/2019 6:22 AM CDT [facility] CALCIUM S/P/B 8.6 8.4 - 10.5 MG/DL 11/23/2019 6:22 AM CDT [facility] BILIRUBIN TOTAL S/P/B 0.6 0.2 - 1.0 MG/DL 11/23/2019 6:22 AM CDT [facility] Comment: THIS ASSAY IS NOT RECOMMENDED FOR PATIENTS UNDERGOING TREATMENT WITH ELTROMBOPAG DUE TO THE POTENTIAL FOR FALSELY ELEVATED RESULTS. ALKALINE PHOSPHATASE S/P/B 43 41 - 108 U/L 11/23/2019 6:22 AM CDT [facility] AST 20 15 - 37 U/L 11/23/2019 6:22 AM CDT [facility] ALT 33 14 - 59 U/L 11/23/2019 6:22 AM CDT [facility] TOTAL PROTEIN S/P/B 6.6 6.4 - 8.2 G/DL 11/23/2019 6:22 AM T [facility] ALBUMIN S/P/B 3.3(L) 3.4 - 5.0 G/DL 11/23/2019 6:22 AM CDT [facility] ANION GAP 5.9 5.0 - 15.0 MMOL/L 11/23/2019 6:22 AM CDT [facility] OSMOLALITY (CALC) 294 MOSM/KG 020 6:22 AM T [facility] Comment:REFERENCE RANGE NOT ESTABLISHED EGFR NON-AFR. AMER. >90 >89 ML/MIN/1. 73 M2 11/23/2019 6:22 AM T [facility] EGFR AFR. AMER. >90 >89 ML/MIN/1. 73 M2 11/23/2019 6:22 AM T [facility] GFR NOTES GFR REFERENCE S: 11/23/2019 6:22 AM [facility] Comment: THE ESTIMATED GFR IS [...] m2 11/23/2019 5:25 [address] CD[address] [facility] Final Res ult [facility] [address] [place] [address], * (ABNORMAL) CBC W/DIFF AUTOMATED (11/23/2019 5:25 AM CDT) WBC 4.4(L) 4.5 - 10.8 x10'3/uL 11/23/2019 5:59 AM CDT [facility] RBC 3.52(L) 4.10 - 5.40 x10'6/uL 11/23/2019 5:59 AM CDT [facility] HGB 10.7(L) 12.0 - 16.0 G/DL 11/23/2019 5:59 AM CDT [facility] HCT 32.9(L) 36.0 - 47.0 % 11/23/2019 5:59 AM CDT [facility] MCV 93.5 78.0 - 100.0 FL 11/23/2019 5:59 AM CDT [facility] MCH 30.4 27.0 - 31.0 PG 11/23/2019 5:59 AM CDT [facility] MCHC 32.5(L) 33.0 - 36.0 G/DL 11/23/2019 5:59 AM CDT [facility] RDW 12.8 11.5 - 14.5 % 11/23/2019 5:59 AM CDT [facility] PLT 219 150 - 350 x10'3/uL 11/23/2019 5:59 AM CDT [facility] MPV 10.9(H) 7.4 - 10.4 FL 11/23/2019 5:59 AM CDT [facility] DIFFERENTIAL COMMENT NORMAL REFERENCE RANGE NOT ESTABLISHED FOR THE PROPORTIONAL LEUKOCYTE DIFFERENTIAL. 11/23/2019 5:59 AM CDT [facility] SEG NEUTROPHILS 59.0 % 0 5:59 AM CDT [facility] LYMPHOCYTES 29.1 % 11/23/2019 5:59 AM CDT [facility] MONOCYTES 9.6 % 11/23/2019 5:59 AM CDT [facility] EOSINOPHILS 1.4 % 11/23/2019 5:59 AM CDT [facility] BASOPHILS 0.7 % 11/23/2019 5:59 AM CDT [facility] IMMATURE GRANS % 0.2 % 11/23/19 5:59 AM CDT [facility] NRBC 0.0 % 11/23/2019 5:59 AM CDT [facility] ABS. NEUTROPHILS 2.57 1.60 - 8.30 x10'3/uL 11/23/2019 5:59 AM CDT [facility] ABS. LYMPHOCYTES 1.27 0.80 - 4.70 x10'3/uL 11/23/2019 5:59 AM CDT [facility] ABS. MONOCYTES 0.42 0.00 - 1.50 x10'3/uL 11/23/2019 5:59 AM CDT [facility] ABS. EOSINOPHILS 0.06 0.00 - 0.40 x10'3/uL 11/23/2019 5:59 AM CDT [facility] ABS. BASOPHILS 0.03 0.00 - 0.20 x10'3/uL 11/23/2019 5:59 AM CDT [facility] ABS. IMMATURE GRANULOCYTES 0.01 0.00 - 0.03 x10'3/uL 11/23/2019 5:59 AM CDT [facility] ABS. NUCLEATED RBC'S 0.00 0.00 x10'3/uL 11/23/2019 5:59 AM CDT [facility] 11/23/2019 5:25 AM CDT us Rosy FAITH- LABORATORY Final Res ult [facility] [address] [place] [address], * SED RATE, ERYTHROCYTE (ESR) (11/23/2019 5:25 AM CDT) ESR 15 0 - 30 MM/HR 11/23/2019 6:26 AM CDT [facility] 11/23/2019 5:25 AM CDT us Rosy Malagon [facility] Final Res ult Performing Organization Address [facility] de Phone Number [facility] [address] [place] [address], * C-REACTIVE PROTEIN (11/23/2019 5:25 AM CDT) C-REACTIVE PROTEIN <0.05 <0.30 mg/dL 11/23/2019 6:22 AM CDT [facility] 11/23/2019 5:25 AM CDT Rosy Dory Manas [facility] Final Res ult Performing Organization Address [facility] de Phone Number [facility] [address] [place] [address], * Pathology (11/23/2019 12:00 AM CDT) PATHOLOGY [facility] ? Department of Laboratory Medicine ?[address] [facility] ?[place] [address] ? , extension [phone] ? Pathology Report ? Surgical Pathology Report Name: ALTHEA KONG ?Specimen #: [id number] Age: 9 1965 (Age: 54) ?Location: [id number] Sex: F ?Procedure Date: 11/23/2019 Hospital #: [id number] ?Date Received: 11/24/2019 Date Reported: 11/25/2019 Provider: [...] Electronically Signed Out ? Mateo Hogan M.D. [facility] Tissue specimen (specimen) DUODENAL STRUCTURE / Unknown 11/23/2019 10:51 AM CDT Tissue specimen (specimen) STOMACH STRUCTURE / Unknown 11/23/2019 10:52 AM CDT us aCroline Diaz MD PATHOLOGY/CYTOLOGY ORDERABLES Final Result Performing Organization Address [facility] de Phone Number [facility] [address] [place] [address], [id number] * MISCELLANEOUS LAB TEST (11/22/2019 9:30 AM CDT) TEST NAME: [id number] OVA AND PARASITE 11/22/2019 10:00 AM CDT [facility] SPECIMEN TYPE STOOL 11/22/2019 10:00 AM CDT [facility] TEST RESULT: Flexitest 1 11/27/2019 5:10 PM CDT [employer] MILTON JIMENEZ Comment: Flexitest 1 Cryptosporidium Antigen, [...] of a parasitic infection. Test Performed by [employer], [employer] [facility], [address] [place] [address] Mateo London M.D., Ph.D., Director of Laboratories , [facility] [id number] OTHER (type in comments) 11/22/2019 9:30 AM CDT us Vamsi Degroot MD LABORATORY Final Resul t Performing Organization Address [facility] Co de Phone Number [employer] , [facility] [address] [place] [address], * CLOSTRIDIUM DIFFICILE (11/22/2019 9:30 AM CDT) SPEC DESCRIPTION STOOL 11/22/2019 9:40 AM CDT [facility] SPECIAL REQUESTS NO SPECIAL REQUEST 11/22/2019 9:40 AM CDT [facility] RESULT NEGATIVE 11/22/2019 11:01 AM CDT [facility] STOOL SPECIMEN / Unknown 11/22/2019 9:30 AM CDT 11/22/2019 9:51 AM CDT Vamsi Degroot MD BODY FLUIDS AND STOOLS LUNA NICHOLSON Final Result [facility] [address] [place] [address], * MISCELLANEOUS LAB TEST (11/22/2019 9:30 AM CDT) TEST NAME: [id number] SALMONELLA/SH IGELLA/CAMPY 11/22/2019 9:59 AM CDT [facility] SPECIMEN TYPE STOOL 11/22/2019 9:59 AM CDT [facility] TEST RESULT: Flexitest 1 11/27/2019 6:58 PM CDT [employer] JESSICABEE JIMENEZ Comment: Flexitest 1 Salmonella and Shigella, Culture SOURCE : Result/Comment: Salmonella or Shigella not isolated. Campylobacter, Culture SOURCE : Result/Comment: Campylobacter not isolated. Shiga Toxins, EIA ?Not Detected Reference range: ??Not Detected Additional Testing ?Not indicated Test Performed by [employer], [employer] [facility], [address] [place] [address] Mateo London M.D., Ph.D., Director of Laboratories , [place] [id number] 11/22/2019 9:30 AM CDT [address]y [address] [facility] Final Res ult [facility] [address] [place] [address], [place] [phone] [facility] [address] [place] [address], * (ABNORMAL) LIPID PANEL (11/22/2019 6:05 AM CDT) CHOLESTEROL 192 <200 MG/DL 11/22/2019 6:39 AM CDT [facility] Comment: THE NATIONAL LIPID ASSOCIATION AND THE NATIONAL CHOLESTEROL EDUCATION PROGRAM (NCEP) HAVE SET THE FOLLOWING GUIDELINES FOR TOTAL CHOLESTEROL IN ADULTS AGES 18 AND UP. DESIRABLE: <200 BORDERLINE HIGH: 200-239 HIGH: > OR = 240 TRIGLYCERIDES 192(H) <150 MG/DL 11/22/2019 6:39 AM CDT [facility] Comment: THE NATIONAL LIPID ASSOCIATION AND THE NATIONAL CHOLESTEROL EDUCATION PROGAM (NCEP) HAVE SET THE FOLLOWING GUIDELINES FOR TRIGLYCERIDES IN ADULTS AGES 18 AND UP. NORMAL: <150 BORDERLINE HIGH: 150 TO 199 HIGH: 200 TO 499 VERY HIGH: >499 HDL 35(L) >49 MG/DL 11/22/2019 6:39 AM CDT [facility] Comment: THE NATIONAL LIPID ASSOCIATION AND THE NATIONAL CHOLESTEROL EDUCATION PROGAM (NCEP) HAVE SET THE FOLLOWING GUIDELINES FOR HDL CHOLESTEROL IN ADULTS AGES 18 AND UP. MALES: >39 FEMALES: >49 LDL (CALCULATED) 119(H) <100 MG/DL 11/22/19 20 6:39 AM CDT [facility] Comment: THE NATIONAL LIPID ASSOCIATION AND THE NATIONAL CHOLESTEROL EDUCATION PROGAM (NCEP) HAVE SET THE FOLLOWING GUIDELINES FOR LDL CHOLESTEROL IN ADULTS AGES 18 AND UP. DESIRABLE: <100 ABOVE DESIRABLE: 100 TO 129 BORDERLINE HIGH: 130 TO 159 HIGH: 160 TO 189 VERY HIGH: >189 VLDL CALCULATION 38 MG/DL 11/22/19 20 6:39 AM CDT [facility] Comment:REFERENCE RANGE NOT ESTABLISHED CHOL/HDL RATIO 5.5 11/22/2019 6:39 AM T [facility] Comment:REFERENCE RANGE NOT ESTABLISHED LDL/HDL 3.4 11/22/2019 6:39 AM CDT [facility] Comment:REFERENCE RANGE NOT ESTABLISHED NON HDL CHOLESTEROL 157 MG/DL 11/22/2019 6:39 AM CDT [facility] Comment:REFERENCE RANGE NOT ESTABLISHED 11/22/2019 6:05 [address] CDT [address] [facility] Final Res ult [facility] [address] [place] [address], * (ABNORMAL) COMPREHENSIVE METABOLIC PANEL (11/22/2019 6:05 AM CDT) SODIUM S/P/B 142 136 - 145 MMOL/L 11/22/2019 6:40 AM CDT [facility] POTASSIUM S/P/B 3.8 3.5 - 5.1 MMOL/L 11/22/2019 6:40 AM CDT [facility] CHLORIDE S/P/B 107 98 - 107 MMOL/L 11/22/2019 6:40 AM CDT [facility] CO2 27.6 21.0 - 32.0 MMOL/L 11/22/2019 6:40 AM CDT [facility] GLUCOSE 101(H) 70 - 99 MG/DL 11/22/2019 6:40 AM CDT [facility] Comment: FASTING GLUCOSE 100 TO 125 MG/DL IS CONSISTENT WITH IMPAIRED FASTING GLUCOSE. FASTING GLUCOSE >125 MG/DL IS CONSISTENT WITH DIABETES. RANDOM GLUCOSE >200 MG/DL WITH HYPERGLYCEMIC SYMPTOMS IS CONSISTENT WITH DIABETES. PER ADA GUIDELINES BUN 9 6 - 24 MG/DL 11/22/2019 6:40 AM CDT [facility] CREATININE S/P/B 0.63 0.55 - 1.02 MG/DL 11/22/2019 6:40 AM CDT [facility] CALCIUM S/P/B 8.5 8.4 - 10.5 MG/DL 11/22/2019 6:40 AM CDT [facility] BILIRUBIN TOTAL S/P/B 0.6 0.2 - 1.0 MG/DL 11/22/2019 6:40 AM [facility] Comment: THIS ASSAY IS NOT RECOMMENDED FOR PATIENTS UNDERGOING TREATMENT WITH ELTROMBOPAG DUE TO THE POTENTIAL FOR FALSELY ELEVATED RESULTS. ALKALINE PHOSPHATASE S/P/B 41 41 - 108 U/L 11/22/2019 6:40 AM [facility] AST 19 15 - 37 U/L 11/22/2019 6:40 AM [facility] ALT 28 14 - 59 U/L 11/22/2019 6:40 AM [facility] TOTAL PROTEIN S/P/B 6.2(L) 6.4 - 8.2 G/DL 11/22/2019 6:40 AM [facility] ALBUMIN S/P/B 3.1(L) 3.4 - 5.0 G/DL 11/22/2019 6:40 AM [facility] ANION GAP 7.4 5.0 - 15.0 MMOL/L 11/22/2019 6:40 AM [facility] OSMOLALITY (CALC) 293 MOSM/KG 020 6:40 AM [facility] Comment:REFERENCE RANGE NOT ESTABLISHED EGFR NON-AFR. AMER. >90 >89 ML/MIN/1. 73 M2 11/22/2019 6:40 AM [facility] EGFR AFR. AMER. >90 >89 ML/MIN/1. 73 M2 11/22/2019 6:40 AM [facility] GFR NOTES GFR REFERENCE S: 11/22/2019 6:40 AM [facility] Comment: THE ESTIMATED GFR IS [...] m2 11/22/2019 6:05 AM CDT Rosy Mal[address] [facility] Final Res ult [facility] [address] [place] [address], * (ABNORMAL) CBC W/DIFF AUTOMATED (11/22/2019 6:05 AM CDT) WBC 4.2(L) 4.5 - 10.8 x10'3/uL 11/22/2019 6:29 AM CDT [facility] RBC 3.46(L) 4.10 - 5.40 x10'6/uL 11/22/2019 6:29 AM CDT [facility] HGB 10.4(L) 12.0 - 16.0 G/DL 11/22/2019 6:29 AM CDT [facility] HCT 32.4(L) 36.0 - 47.0 % 11/22/2019 6:29 AM CDT [facility] MCV 93.6 78.0 - 100.0 FL 11/22/2019 6:29 AM CDT [facility] MCH 30.1 27.0 - 31.0 PG 11/22/2019 6:29 AM CDT [facility] MCHC 32.1(L) 33.0 - 36.0 G/DL 11/22/2019 6:29 AM CDT [facility] RDW 13.2 11.5 - 14.5 % 11/22/2019 6:29 AM CDT [facility] PLT 204 150 - 350 x10'3/uL 11/22/2019 6:29 AM CDT [facility] MPV 11.0(H) 7.4 - 10.4 FL 11/22/2019 6:29 AM CDT [facility] DIFFERENTIAL COMMENT NORMAL REFERENCE RANGE NOT ESTABLISHED FOR THE PROPORTIONAL LEUKOCYTE DIFFERENTIAL. 11/22/2019 6:29 AM CDT [facility] SEG NEUTROPHILS 53.8 % 0 6:29 AM CDT [facility] LYMPHOCYTES 36.0 % 11/22/2019 6:29 AM CDT [facility] MONOCYTES 7.6 % 11/22/2019 6:29 AM CDT [facility] EOSINOPHILS 1.4 % 11/22/2019 6:29 AM CDT [facility] BASOPHILS 1.0 % 11/22/2019 6:29 AM CDT [facility] IMMATURE GRANS % 0.2 % 11/22/19 20 6:29 AM CDT [facility] NRBC 0.0 % 11/22/2019 6:29 AM CDT [facility] ABS. NEUTROPHILS 2.25 1.60 - 8.30 x10'3/uL 11/22/2019 6:29 AM CDT [facility] ABS. LYMPHOCYTES 1.51 0.80 - 4.70 x10'3/uL 11/22/2019 6:29 AM CDT [facility] ABS. MONOCYTES 0.32 0.00 - 1.50 x10'3/uL 11/22/2019 6:29 AM CDT [facility] ABS. EOSINOPHILS 0.06 0.00 - 0.40 x10'3/uL 11/22/2019 6:29 AM CDT [facility] ABS. BASOPHILS 0.04 0.00 - 0.20 x10'3/uL 11/22/2019 6:29 AM CDT [facility] ABS. IMMATURE GRANULOCYTES 0.01 0.00 - 0.03 x10'3/uL 11/22/2019 6:29 AM CDT [facility] ABS. NUCLEATED RBC'S 0.00 0.00 x10'3/uL 11/22/2019 6:29 AM CDT [facility] 11/22/2019 6:05 AM CDT us Rosy Malagon [employer] [facility] [employer] Final Res ult [facility] [address] [place] [address], * CORONAVIRUS (COVID 19) PCR (11/21/2019 12:34 PM CDT) SPEC DESCRIPTION NASOPHARYNGEAL SWAB 11/21/2019 12:43 PM CDT [facility] CORONAVIRUS SARS COV 2 PCR (RESP) NEGATIVE NEGATIVE 11/22/2019 4:35 PM CDT [facility] Comment: NEGATIVE RESULTS DO NOT PRECLUDE SARS-CoV-2 INFECTION AND SHOULD NOT BE USED THE SOLE BASIS FOR PATIENT MANAGEMENT DECISIONS. NEGATIVE RESULTS MUST BE COMBINED WITH CLINICAL OBSERVATIONS, PATIENT HISTORY, AND EPIDEMIOLOGICAL INFORMATION. 11/21/2019 12:3 4 PM CDT Vamsi Degroot MD MICROBIOLOGY - [facility] Final Result Performing Organization Address [facility]/ZIP Co de Phone Number [facility] [address] [place] [address], [phone] [facility] [address] [place] [address], * LACTIC ACID (11/21/2019 12:30 PM CDT) LACTIC ACID VENOUS 2.0 0.4 - 2.0 MMOL/L 11/21/2019 1:01 PM CDT [facility] 11/21/2019 12:[address] [facility] LABORATORY Final Res ult Performing Organization Address City/[facility]/ZIP Co de Phone Number [facility] [address] [place] [address], * EKG Reading (11/21/2019 7:48 AM CDT) Narrative Russell Grimaldo MD - 11/21/2019 7:48 AM CDT Russell Grimaldo MD ? 11/21/2019 ??8:03 AM EKG Reading Date/Time: 11/21/2019 7:55 AM Performed by: Russell Grimaldo MD Authorized by: Russell Grimaldo MD Rhythm: sinus rhythm Rate: normal Clinical impression comment: No significant change from previous EKG Russell Grimaldo MD MA CARDIOVASCULAR SYSTEM SERVICE S Final Result * (ABNORMAL) LACTIC ACID - SINGLE (11/21/2019 7:37 AM CDT) LACTIC ACID VENOUS 2.6(H) 0.4 - 2.0 MMOL/L 11/21/2019 8:07 AM CDT [facility] Comment: AN ORDER FOR A REPEAT LACTIC ACID TEST IS REQUIRED WITHIN 6 HOURS OF DIAGNOSIS ON A PATIENT WITH SEVERE SEPSIS. 11/21/2019 7:37 AM CDT Russell Grimaldo MD LABORATORY Final Result Performing Organization Address [facility] Co de Phone Number [facility] [address] [place] [address], * TROPONIN, QUANT (11/21/2019 7:37 AM CDT) TROPONIN I <0.017 0.000 - 0.056 ng/mL. 11/21/2019 8:07 AM CDT [facility] Comment: ALTHOUGH VALUES OVER 0.056 ARE CONSIDERED ABNORMAL AND REPRESENT MYOCARDIAL DAMAGE,A CUTOFF OF 0.600 HAS BEEN RECOMMENDED REPRESENTING ACUTE MYOCARDIAL INFARCTION. 11/21/2019 7:37 AM CDT Russell Grimaldo MD LABORATORY Final Result Performing Organization Address City/[facility]/ZIP Co de Phone Number [facility] [place] [address], [place] [phone] * (ABNORMAL) URINALYSIS (11/21/2019 7:27 AM CDT) COLOR (U) YELLOW 11/21/2019 8:03 AM CDT [facility] TRANSPARENCY CLEAR 11/21/2019 8:03 AM CDT [facility] SPECIFIC GRAVITY (U) 1.025 1.000 - 1.025 11/21/2019 8:03 AM CDT [facility] U PH 5.5 5.0 - 8.0 11/21/2019 8:03 AM CDT [facility] LEUKOCYTES (U) NEGATIVE NEGATIVE 11/21/2019 8:03 AM CDT [facility] NITRITES NEGATIVE NEGATIVE 11/21/2019 8:03 AM CDT [facility] PROTEIN (U) NEGATIVE NEGATIVE 11/21/2019 8:03 AM CDT [facility] URINE GLUCOSE NEGATIVE NEGATIVE 11/21/2019 8:03 AM CDT [facility] KETONES MG/DL (U) NEGATIVE NEGATIVE 11/21/2019 8:03 AM CDT [facility] UROBILINOGEN 0.2 <1.0 EU/DL 11/21/2019 8:03 AM CDT [facility] BILIRUBIN (U) NEGATIVE NEGATIVE 11/21/2019 8:03 AM CDT [facility] BLOOD (U) NEGATIVE NEGATIVE 11/21/2019 8:03 AM CDT [facility] WBC/HPF RARE(A) 0 - 5 /HPF 11/21/2019 8:03 AM CDT [facility] EPI/HPF OCCASIONAL /LPF 11/21/2019 8:03 AM CDT [facility] BACTERIA (U) TRACE /HPF 11/21/2019 8:03 AM CDT [facility] MUCUS PRESENT 11/21/2019 8:03 AM CDT [facility] URINE SPECIMEN OBTAINED BY CLEAN CATCH PROCEDURE / Unknown 11/21/2019 7:27 AM CDT us Russell Grimaldo MD URINE ORDERABLES Final Result [facility] [address] [place] [address], * CTA CHEST+CT ABD+PEL W CON (11/21/2019 [...] Normal. Reproductive: Normal. MUSCULOSKELETAL: Normal. Procedure Note Reza Avery MD - 11/21/2019 EXAMINATION: CT SCAN OF [...] by: Reza Avery M.D. 11/21/2019 6:33:00 AM us Russell Grimaldo MD CT Final Result * [...] by: Alfonso Tripathi M.D. 11/21/2019 6:22:00 AM us Russell Grimaldo MD CT Final Result * ECG 12 lead (11/21/2019 3:08 AM CDT) 11/21/2019 3:08 AM CDT Narrative [facility] - 11/21/2019 12:55 PM CDT ? [facility] ?[address] [place], [place] ??[address] ? Test Date: ?2019-11-21 Pat Name: ? ALTHEA KONG ?Department: ? Room: ? 301 Gender: ? Female ? Awning Hanger: ?? : ?1965 ? Requested By: RUSSELL GRIMALDO Order Number: [id number] ? Reading : ?? Misbah Garcia ? Measurements Intervals ?[place] ? Rate: ? 63 ? P: ?46 MA: ? 177 ?QRS: ?-25 QRSD: ? 101 ?T: ?23 QT: ? 386 ? QTc: ?398 ? Interpretive Statements SINUS RHYTHM BORDERLINE LEFT AXIS DEVIATION MINIMAL VOLTAGE CRITERIA FOR LVH, CONSIDER NORMAL VARIANT Procedure Note Misbah Garcia MD - 11/21/[address] [place] [address] Test Date: 2019-11-21 Pat Name: ALTHEA KONG Department: Room: 301 Gender: Female Awning Hanger: : 1965 Requested By: RUSSELL GRIMALDO Order Number: [id number] Barbie MD: Misbah Garcai Measurements Intervals [place] Rate: 63 P: 46 MA: 177 QRS: -25 QRSD: 101 T: 23 QT: 386 QTc: 398 Interpretive Statements SINUS RHYTHM BORDERLINE LEFT AXIS DEVIATION MINIMAL VOLTAGE CRITERIA FOR LVH, CONSIDER NORMAL VARIANT us Russell Grimaldo MD ECG ORDERABLES Final Result Performing Organization Address [facility]/ZIP Co de Phone Number [facility] * PARTIAL THROMBOPLASTIN TIME,PTT (11/21/2019 2:50 AM CDT) PTT 36.9 27.5 - 38.9 SEC 11/21/2019 8:09 AM CDT [facility] Comment:THERAPEUTIC RANGE: 4 9.8-83.0 SEC 11/21/2019 2:50 AM CDT us Russell Grimaldo MD LABORATORY Final Result Performing Organization Address [facility] de Phone Number [facility] [address] [place] [address], * PROTIME/INR, VENOUS (11/21/2019 2:50 AM CDT) PROTIME 11.5 10.8 - 13.2 SEC 11/21/2019 8:09 AM CDT [facility] INR 1.0 0.9 - 1.1 11/21/2019 8:09 AM CDT [facility] 11/21/2019 2:50 AM CDT us Russell Grimaldo MD LABORATORY Final Result Performing Organization Address [facility] Co de Phone Number [facility] [address] [place] [address], [place] [phone] * (ABNORMAL) LACTIC ACID (11/21/2019 2:50 AM CDT) LACTIC ACID VENOUS 4.6(HH) 0.4 - 2.0 MMOL/L 11/21/2019 8:11 AM CDT [facility] Comment: AN ORDER FOR A REPEAT LACTIC ACID TEST IS REQUIRED WITHIN 6 HOURS OF DIAGNOSIS ON A PATIENT WITH SEVERE SEPSIS. CALLED TO ELLA Crane R and V CRITICAL VALUE 11/21/2019 2:50 AM CDT Russell Grimaldo MD LABORATORY Final Result [facility] [address] [place] [address], * (ABNORMAL) COMPREHENSIVE METABOLIC PANEL (11/21/2019 2:50 AM CDT) SODIUM S/P/B 140 136 - 145 MMOL/L 11/21/2019 7:47 AM CDT [facility] POTASSIUM S/P/B 3.5 3.5 - 5.1 MMOL/L 11/21/2019 7:47 AM CDT [facility] CHLORIDE S/P/B 103 98 - 107 MMOL/L 11/21/2019 7:47 AM CDT [facility] CO2 23.1 21.0 - 32.0 MMOL/L 11/21/2019 7:47 AM CDT [facility] GLUCOSE 132(H) 70 - 99 MG/DL 11/21/2019 7:47 AM CDT [facility] Comment: FASTING GLUCOSE 100 TO 125 MG/DL IS CONSISTENT WITH IMPAIRED FASTING GLUCOSE. FASTING GLUCOSE >125 MG/DL IS CONSISTENT WITH DIABETES. RANDOM GLUCOSE >200 MG/DL WITH HYPERGLYCEMIC SYMPTOMS IS CONSISTENT WITH DIABETES. PER ADA GUIDELINES BUN 16 6 - 24 MG/DL 11/21/2019 7:47 AM CDT [facility] CREATININE S/P/B 0.91 0.55 - 1.02 MG/DL 11/21/2019 7:47 AM CDT [facility] CALCIUM S/P/B 9.9 8.4 - 10.5 MG/DL 11/21/2019 7:47 AM CDT [facility] BILIRUBIN TOTAL S/P/B 0.5 0.2 - 1.0 MG/DL 11/21/2019 7:47 AM CDT [facility] Comment: THIS ASSAY IS NOT RECOMMENDED FOR PATIENTS UNDERGOING TREATMENT WITH ELTROMBOPAG DUE TO THE POTENTIAL FOR FALSELY ELEVATED RESULTS. ALKALINE PHOSPHATASE S/P/B 55 41 - 108 U/L 11/21/2019 7:47 AM CDT [facility] AST 14(L) 15 - 37 U/L 11/21/2019 7:47 AM CDT [facility] ALT 30 14 - 59 U/L 11/21/2019 7:47 AM CDT [facility] TOTAL PROTEIN S/P/B 8.4(H) 6.4 - 8.2 G/DL 11/21/2019 7:47 AM CDT [facility] ALBUMIN S/P/B 4.1 3.4 - 5.0 G/DL 11/21/2019 7:47 AM CDT [facility] ANION GAP 13.9 5.0 - 15.0 MMOL/L 11/21/2019 7:47 AM CDT [facility] OSMOLALITY (CALC) 293 MOSM/KG 020 7:47 AM T [facility] Comment:REFERENCE RANGE NOT ESTABLISHED EGFR NON-AFR. AMER. 72(L) >89 ML/MIN/1. 73 M2 11/21/2019 7:47 AM T [facility] EGFR AFR. AMER. 83(L) >89 ML/MIN/1. 73 M2 11/21/2019 7:47 AM T [facility] GFR NOTES GFR REFERENCE S: 11/21/2019 7:47 AM [facility] Comment: THE ESTIMATED GFR IS [...] <15 ml/min/1.73 m2 11/21/2019 2:50 AM CDT Russell Grimaldo MD LABORATORY Final Result Performing Organization Address [facility] Co de Phone Number [facility] [address] [place] [address], * (ABNORMAL) D-DIMER, QUANTITATIVE (11/21/2019 2:50 AM CDT) Pathologist [facility] D-DIMER 575(H) <501 ng{FEU}/mL 11/21/2019 7:45 AM CDT [facility] Comment: A D DIMER RESULT LESS THAN OR EQUAL TO 500 NG/ML FEU HAS A NEGATIVE PREDICTIVE VALUE GREATER THAN 96% FOR THE EXCLUSION OF ACUTE PULMONARY EMBOLISM OR DEEP VEIN THROMBOSIS WHEN THERE IS LOW TO MODERATE PRETEST PROBABILITY. 11/21/2019 2:50 AM CDT us Russell Grimaldo MD LABORATORY Final Result Performing Organization Address [facility] de Phone Number [facility] [address] [place] [address], * CULTURE, BACTERIA, BLOOD (11/21/2019 2:50 AM CDT) [facility] SPEC DESCRIPTION BLOOD 11/21/2019 7:14 AM CDT [facility] SPECIAL REQUESTS NO SPECIAL REQUEST 11/21/2019 7:14 AM CDT [facility] CULTURE RESULT NO GROWTH 5 DAYS 11/26/2019 1:08 PM CDT [facility] BLOOD SPECIMEN OBTAINED FOR BLOOD CULTURE / Unknown 11/21/2019 2:50 AM CDT 11/21/2019 7:40 AM CDT us Russell Grimaldo MD MICROBIOLOGY - GENERAL ORDERABLE S Final Result Performing Organization Address [facility] Co de Phone Number [facility] [address] [place] [phone], * TROPONIN, QUANT (11/21/2019 2:50 AM CDT) [facility] TROPONIN I <0.017 0.000 - 0.056 ng/mL. 11/21/2019 7:47 AM CDT [facility] Comment: ALTHOUGH VALUES OVER 0.056 ARE CONSIDERED ABNORMAL AND REPRESENT MYOCARDIAL DAMAGE,A CUTOFF OF 0.600 HAS BEEN RECOMMENDED REPRESENTING ACUTE MYOCARDIAL INFARCTION. 11/21/2019 2:50 AM CDT us Russell Grimaldo MD LABORATORY Final Result Performing Organization Address [facility] Co de Phone Number [facility] [address] [place] [address], * LIPASE (11/21/2019 2:50 AM CDT) LIPASE 126 73 - 393 UNITS/L 11/21/2019 7:47 AM CDT [facility] 11/21/2019 2:50 AM CDT us Russell Grimaldo MD LABORATORY Final Result Performing Organization Address [facility] de Phone Number [facility] [address] [place] [address], * (ABNORMAL) CBC W/DIFF AUTOMATED (11/21/2019 2:50 AM CDT) WBC 8.4 4.5 - 10.8 x10'3/uL 11/21/2019 7:46 AM CDT [facility] RBC 4.26 4.10 - 5.40 x10'6/uL 11/21/2019 7:46 AM CDT [facility] HGB 13.0 12.0 - 16.0 G/DL 11/21/2019 7:46 AM CDT [facility] HCT 39.0 36.0 - 47.0 % 11/21/2019 7:46 AM CDT [facility] MCV 91.5 78.0 - 100.0 FL 11/21/2019 7:46 AM CDT [facility] MCH 30.5 27.0 - 31.0 PG 11/21/2019 7:46 AM CDT [facility] MCHC 33.3 33.0 - 36.0 G/DL 11/21/2019 7:46 AM CDT [facility] RDW 12.9 11.5 - 14.5 % 11/21/2019 7:46 AM CDT [facility] PLT 298 150 - 350 x10'3/uL 11/21/2019 7:46 AM CDT [facility] MPV 11.0(H) 7.4 - 10.4 FL 11/21/2019 7:46 AM CDT [facility] DIFFERENTIAL COMMENT NORMAL REFERENCE RANGE NOT ESTABLISHED FOR THE PROPORTIONAL LEUKOCYTE DIFFERENTIAL. 11/21/2019 7:46 AM CDT [facility] SEG NEUTROPHILS 80.5 % 0 7:46 AM CDT [facility] LYMPHOCYTES 13.7 % 11/21/2019 7:46 AM CDT [facility] MONOCYTES 4.9 % 11/21/2019 7:46 AM CDT [facility] EOSINOPHILS 0.1 % 11/21/2019 7:46 AM CDT [facility] BASOPHILS 0.6 % 11/21/2019 7:46 AM CDT [facility] IMMATURE GRANS % 0.2 % 11/21/19 20 7:46 AM CDT [facility] NRBC 0.0 % 11/21/2019 7:46 AM CDT [facility] ABS. NEUTROPHILS 6.76 1.60 - 8.30 x10'3/uL 11/21/2019 7:46 AM CDT [facility] ABS. LYMPHOCYTES 1.15 0.80 - 4.70 x10'3/uL 11/21/2019 7:46 AM CDT [facility] ABS. MONOCYTES 0.41 0.00 - 1.50 x10'3/uL 11/21/2019 7:46 AM CDT [facility] ABS. EOSINOPHILS 0.01 0.00 - 0.40 x10'3/uL 11/21/2019 7:46 AM CDT [facility] ABS. BASOPHILS 0.05 0.00 - 0.20 x10'3/uL 11/21/2019 7:46 AM CDT [facility] ABS. IMMATURE GRANULOCYTES 0.02 0.00 - 0.03 x10'3/uL 11/21/2019 7:46 AM CDT [facility] ABS. NUCLEATED RBC'S 0.00 0.00 x10'3/uL 11/21/2019 7:46 AM CDT [facility] 11/21/2019 2:50 AM CDT us Russell Grimaldo MD LABORATORY Final Result Performing Organization Address [facility] Co de Phone Number [address] [address], * CULTURE, BACTERIA, BLOOD (11/21/2019 2:40 AM CDT) SPEC DESCRIPTION BLOOD 11/21/2019 7:14 AM CDT [facility] SPECIAL REQUESTS NO SPECIAL REQUEST 11/21/2019 7:14 AM CDT [facility] CULTURE RESULT NO GROWTH 5 DAYS 11/26/2019 1:08 PM CDT [facility] BLOOD SPECIMEN OBTAINED FOR BLOOD CULTURE / Unknown 11/21/2019 2:40 AM CDT 11/21/2019 7:41 AM CDT us Russell Grimaldo MD MICROBIOLOGY - GENERAL ORDERABLE S Final Result Performing Organization Address [facility] de Phone Number [address] [address], documented in this encounter Visit Diagnoses Not on filedocumented in this encounter Admitting Diagnoses Diagnosis Gastroenteritis [...] 3), Starting on 11/21/19 at 1309, Until 11/23/19 at 1651, Maximum dose of acetaminophen is 4000 mg from all sources in 24 hours. Given 11/23/2019 6:18 AM CDT 650 mg Given 11/22/2019 11:37 PM CDT 650 mg Given 11/22/2019 6:34 PM CDT 650 mg aspirin chewable tablet 81 mg 81 mg, Oral, Daily, First dose on 11/21/19 at 1300, Until Discontinued Given 11/22/2019 8:47 [...] Given 11/21/2019 1:01 PM CDT 10 mg gabapentin (NEURONTIN) capsule 300 mg 300 mg, Oral, Nightly, First dose on 11/21/19 at 2100, Until Discontinued Given 11/22/2019 8:25 PM CDT 300 mg Given 11/21/2019 8:52 PM CDT 300 mg hydroCHLOROthiazide (HYDRODIURIL) tablet 25 mg 25 mg, Oral, Every morning, First dose on Fri11/22/19 at 0700, Until Discontinued Given 11/23/2019 6:17 AM CDT 25 mg Given 11/22/2019 6:08 AM CDT 25 mg LORazepam (ATIVAN) tablet 0.5 mg 0.5 mg, Oral, Every 6 hours PRN, Anxiety, Starting on Fri11/21/19 at 1232, Until Fri11/23/19 at 1651 Given 11/22/2019 8:25 PM CDT 0.5 mg Given 11/22/2019 2:16 AM CDT 0.5 mg losartan (COZAAR) tablet 100 mg 100 mg, Oral, Daily, First dose on 11/21/19 at 1300, Until Discontinued Given 11/23/2019 8:39 AM CDT 100 mg Given 11/22/2019 8:48 AM CDT 100 mg Given 11/21/2019 1:01 PM CDT 100 mg ondansetron (ZOFRAN) injection 4 mg 4 mg, Intravenous, Every 8 hours PRN, Nausea, Vomiting, Starting on 11/21/19 at 1155, Until Fri11/23/19 at 1651, IV [...] Given 11/22/2019 8:48 AM CDT 5 mg traMADol (ULTRAM) tablet 50 mg 50 mg, Oral, Every 6 hours PRN, Moderate pain (Scale 4 - 7), Starting on 11/22/19 at 1133, Until Fri11/23/19 at 1651 Given [...] Comment: procedure)0952 (MAR Hold - Provider: User AIS - Reason: Unreviewed Transfer Orders)1137 (MAR Unhold - Provider: User Epic) carvedilol (COREG) tablet 12.5 mg 12.5 mg, Oral, 2 times daily, First dose on 11/21/19 at 2100, Until Discontinued, Auto-sub for atenolol 100mg daily Take with meal or snack 2051 (Given - Provider: Elvira Wilkinson RN) 0847 (Given - Provider: Lima Wilson, CHARLEY)2024 (Given - Provider: Hiral Hunt, CHARLEY) 0839 (Given - Provider: Jessica Parra, CHARLEY)0952 (MAR Hold - Provider: User Epic - Reason: Unreviewed Transfer Orders)1137 (MAR Unhold - Provider: User Epic) citalopram (CeleXA) tablet 10 mg 10 mg, Oral, Daily, First dose on 11/21/19 at 1300, Until Discontinued, Auto-sub for lexapro 5mg 1301 (Given - Provider: Carla Gordon RN) 0848 (Given - Provider: Lima Wilson, CHARLEY) 0839 (Given - Provider: Jessica Parra, CHARLEY)0952 [...] Gordon RN) 1130 (Given - Provider: Lima Wilson, CHARLEY) gabapentin (NEURONTIN) capsule 300 mg 300 mg, Oral, Nightly, First dose on 11/21/19 at 2100, Until Discontinued 2051 (Given - Provider: Elvira Wilkinson RN) 2024 (Given - Provider: Hiral Hunt, CHARLEY) 0952 (MAR Hold - Provider: User Epic - Reason: Unreviewed Transfer Orders)1137 (MAR Unhold - Provider: User Epic) hydroCHLOROthiazide (HYDRODIURIL) tablet 25 mg 25 mg, Oral, Every morning, First dose on 11/22/19 at 0700, Until Discontinued 0608 (Given - Provider: Elvira Wilkinson RN) 0617 (Given - Provider: Hiral Hunt, CHARLEY)0952 (MAR Hold - Provider: User Epic - Reason: Unreviewed Transfer Orders)1137 (MAR Unhold - Provider: User Epic) losartan (COZAAR) tablet 100 mg 100 mg, Oral, Daily, First dose on 11/21/19 at 1300, Until Discontinued 1301 (Given - Provider: Carla Gordon, CHARLEY) 0848 (Given - Provider: Lima Wilson, CHARLEY) 0839 (Given - Provider: Jessica Parra, CHARLEY)0952 [...] Wilkinson RN) 0848 (Given - Provider: Lima Wilson, CHARLEY)2024 (Given - Provider: Hiral Hunt RN) 0839 (Given - Provider: Jessica Parra, CHARLEY)0952 (MAR Hold - Provider: User Epic - Reason: Unreviewed Transfer Orders)1137 (MAR Unhold - Provider: User Epic) sodium chloride 0.9% infusion (COMPLETED) at 200 mL/hr, Intravenous, Once, 1 dose, On 11/21/19 at 0815 0819 (New Bag - Provider: Laurie Serrano RN)1301 (Infusion Stop Time - Provider: Carla Gordon, [...] RN)1330 (Infusion Stop Time - Provider: Lima Wilson RN)1339 (New Bag - Provider: Lima Wilson RN)215 (Infusion Stop Time - Provider: Hiral Hunt RN)215 (New Bag - Provider: Hiral Hunt RN) 0617 (Infusion Stop Time - Provider: Hiral Hunt RN)0618 (New Bag - Provider: Hiral Hunt RN)0952 (SEP Hold - Provider: User Epic - Reason: Unreviewed Transfer Orders)0957 (MAR Unhold - Provider: Rosy Malagon, ANP-) PRN Medication Order 11/21/2019 11/22/2019 11/23/2019 acetaminophen [...] Elvira Wilkinson RN)0847 (Given - Provider: Lima Wilson RN)1834 (Given - Provider: Lima Wilson RN)2337 (Given - Provider: Hiral Hunt, CHARLEY) 0618 [...] Anxiety, Starting on 11/21/19 at 1232, Until Fri11/23/19 at 1651 0216 (Given - Provider: Elvira Wilkinson, RN)2024 (Given - Provider: Hiral Hunt RN) 0952 (MAR Hold - Provider: User Epic - Reason: Unreviewed Transfer Orders)1137 (MAR Unhold - Provider: User Epic) ondansetron (ZOFRAN) injection 4 mg 4 mg, Intravenous, Every 8 hours PRN, Nausea, Vomiting, Starting on 11/21/19 at 1155, Until Fri11/23/19 at 1651, IV push over 2-5 minutes. 1551 (Given - Provider: Carla Gordon RN) 1834 (Given - Provider: Lima Wilson RN) 0952 (MAR Hold - Provider: User Epic - Reason: Unreviewed Transfer Orders)1137 ([facility] Unhold - Provider: User Epic) traMADol (ULTRAM) tablet 50 mg 50 mg, Oral, Every 6 hours PRN, Moderate pain (Scale 4 - 7), Starting on 11/22/19 at 1133, Until Fri11/23/19 at 1651 1151 (Given - Provider: Lima Wilson RN) 0952 ([facility] Hold - Provider: User Epic - Reason: Unreviewed Transfer Orders)1137 (MAR Unhold - Provider: User Epic) Linked Groups [...] documented as of this encounter Care Teams Vice President Investor Relations Relationship Specialty Start Date End Date Cristy Guan MD [address] [place] [phone] PCP - General INTERNAL MEDICINE 11/21/19 documented as of this encounter
--- OUTSIDE RECORDS SUMMARY | 2024-07-15 23:58 | XMS_ITS | Encounter Summary ---
Author Organization [facility] Address [facility] [place] [place] [address] [place] [address] Care Team Providers Care [facility] Director Name Role Phone Unavailable Primary Care Provider Unavailabl e Encounter Details Date Type Department Care Team (Late st Contact Info) Description 11/03/[address] [facility] [address] [place] [address] , Tami Treivno MD Social History Tobacco Use Types Packs/Day Years Used Date Smoking Tobacco: Never Assessed Comments Unknown Sex and Gender Information Value Date Recorded Sex Assigned at Not on file Legal Sex Female 5:52 PM [employer] Gender Identity Not on file Sexual Orientation Not on file documented as of this encounter Plan of Treatment Not on file documented as of this encounter Visit Diagnoses Not on filedocumented in this encounter
--- OUTSIDE RECORDS SUMMARY | 2024-07-15 23:58 | XMS_ITS | Encounter Summary ---
Author Organization [facility] Address Critical access hospital6 [facility] [place] [address] [place] [address] Care Team Providers Care Metal Tester Name Role Phone Tushar West MD Primary Care Provider [phone] Reason for Referral * (Routine) - Closed Specialty Diagnoses / Procedures Referred By Contac t Referred To Contact Procedures Critical Care Russell Grimaldo MD Phone: tel: fax: Referral ID Status Reason Start Date Expiration Date Visits Re quested Visits Authorized [id number] Closed 02/29/2020 03/31/2021 1 1 Reason for Visit * Reason Comments Cough Encounter Details Date Type Department Care Team (Late st Contact Info) Description 02/29/2020 10:10 AM CDT - 02/29/2020 3:10 PM CDT Emergency [facility] [address] [place] [address] Russell Grimaldo MD [address] [place] [id number] Cough Discharge Disposition: Transfer to Acute Care Hospital Social History Tobacco Use Types Packs/Day Years [...] on file 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 Yes 02/29/2020 10:11 AM CDT documented as of this encounter Last Filed Vital Signs Vital Sign Reading Time Taken Comments Blood Pressure 140/92 02/29/2020 2:30 PM CDT Pulse 82 02/29/2020 3:00 PM CDT Temperature 38.4 ??C (101.2 ??F) 02/29/2020 10:26 AM CDT Respiratory Rate 29 02/29/2020 3:00 PM CDT Oxygen Saturation 96% 02/29/2020 3:00 PM CDT Inhaled Oxygen Concentration - - Weight 181.4 kg (400 lb) 02/29/2020 10:26 AM CDT Height 162.6 cm (5' 4 ) 02/29/2020 10:26 AM CDT Body Mass Index 68.66 02/29/2020 10:26 AM CDT documented in this encounter Functional [...] tablet Take 100 mg by mouth nightly. 0 dexamethasone 2 MG tablet Take 3 tablets [...] days, then stop. 15 tablet 03/12/2020 0 dexamethasone 2 MG tablet Take 3 tablets [...] for 30 days. 30 tablet 03/12/2020 0 furosemide 40 MG tablet Take 1 tablet (40 mg total) by mouth daily for 30 days. 30 tablet 03/12/2020 0 hydroCHLOROthia zide 25 MG tablet Take 25 mg by mouth every morning. 0 lidocaine 4 % patch Place 1 patch onto the skin daily. Remove & Discard patch within 12 hours or as directed by 30 patch 03/12/2020 0 lidocaine 4 % patch Place [...] by mouth 2 (two) times daily. 4 oxybutynin XL 5 MG 24 hr tablet Take 10 mg by mouth 2 (two) times a day. 0 sucralfate 1 G tablet Take 1 g by mouth 4 (four) times daily. 09/11/19 2 3 documented as of this encounter ED Notes * Jose Ramon Chacko RN - 02/29/2020 2:39 PM CDT Spoke with sunil dysonatch, ambulance is en route * Russell Grimaldo MD - 02/29/2020 1:45 PM CDTAssociated Order(s): Critical Care; EKG Reading Chief Complaint Chief Complaint Patient presents with ??? Cough History of Present Illness 54-year-old female complaining of cough and shortness of breath for 1 week. Patient also complains of fever. Patient was seen in ED in [place] 1 week ago and had a COVID test at urgent care that wasnegative on . Patient complains of some nausea but denies vomiting. Patient also complains of epigastric tenderness. Patient sometimes has substernal pain when she breathes. Symptoms are worsening and is moderate to severe Medical History ALLERGIES: No Known Allergies MEDICATIONS: [...] (two) times a day. Yes Doc Abstract PAST MEDICAL HISTORY: Past Medical History: Diagnosis [...] Topics ??? Alcohol use: Never Frequency: Never ??? Drug use: Never Review of Systems Review of Systems Constitutional: Positive for fever. HENT: Negative for voice change. Respiratory: Positive for cough and shortness of breath. Negative for wheezing. Cardiovascular: Positive for chest pain. Gastrointestinal: Positive for abdominal pain. Skin: Negative for color change. Neurological: Negative for speech difficulty. Psychiatric/Behavioral: Negative for agitation. All other systems reviewed and are negative. Physical Exam Filed Vitals: 02/29/20 1026 02/29/20 1028 02/29/20 1330 BP: (!) 159/97 (!) 141/93 Pulse: 96 85 Resp: 26 29 Temp: 101.2 ??F (38.4 ??C) TempSrc: Oral SpO2: (!) 89% 94% 97% Weight: (!) 181.4 kg (400 lb) Height: 5' 4 (1.626 m) Physical Exam Constitutional: She appears well-developed. HENT: Head: Atraumatic. Eyes: EOM are normal. Neck: Normal inspection Cardiovascular: Normal rate and regular rhythm. Pulmonary/Chest: No stridor. No respiratory distress. She has no wheezes. Decreased breath sounds at the bases Abdominal: She exhibits no mass. There is tenderness. There is no rebound. Epigastric tenderness Musculoskeletal: Lower extremities-no pitting edema Neurological: She is alert. Skin: Skin is dry. Psychiatric: She has a normal mood and affect. Diagnostic Studies / Procedures ELECTROCARDIOGRAMS: Results for orders placed or performed during the hospital encounter of 02/29/20 ECG 12 lead Narrative [address] [place] [address] Test Date: 2020-02-29 Pat Name: ALTHEA KONG Department: Room: Gender: Female Fork Assembler: JUAN R : 1965 Requested By: RUSSELL GRIMALDO Order Number: [id number] Reading MD: Measurements Intervals [place] Rate: 98 P: 26 RI: 152 QRS: -38 QRSD: 98 T: 50 QT: 346 QTc: 444 Interpretive Statements SINUS RHYTHM LEFT AXIS DEVIATION LABORATORY STUDIES: Results for orders placed or performed during the hospital encounter of 02/29/20 CBC W/DIFF AUTOMATED Result Value Ref Range WBC 3.6 (L) 4.5 - 10.8 x10'3/uL RBC 3.72 (L) 4.10 - 5.40 x10'6/uL HGB 11.3 (L) 12.0 - 16.0 G/DL HCT 34.4 (L) 36.0 - 47.0 % MCV 92.5 78.0 - 100.0 FL MCH 30.4 27.0 - 31.0 PG MCHC 32.8 (L) 33.0 - 36.0 G/DL RDW 13.0 11.5 - 14.5 % PLT 190 150 - 350 x10'3/uL MPV 10.8 (H) 7.4 - 10.4 FL Differential Comment NORMAL REFERENCE RANGE NOT ESTABLISHED FOR THE PROPORTIONAL LEUKOCYTE DIFFERENTIAL. SEG NEUTROPHILS 85.7 % LYMPHOCYTES 9.6 % MONOCYTES 4.4 % EOSINOPHILS 0.0 % BASOPHILS 0.0 % IMMATURE GRANS 0.3 % NRBC 0.0 % ABS. NEUTROPHILS 3.11 1.60 - 8.30 x10'3/uL ABS. LYMPHOCYTES 0.35 (L) 0.80 - 4.70 x10'3/uL ABS. MONOCYTES 0.16 0.00 - 1.50 x10'3/uL ABS. EOSINOPHILS 0.00 0.00 - 0.40 x10'3/uL ABS. BASOPHILS 0.00 0.00 - 0.20 x10'3/uL ABS. IMMATURE GRANULOCYTES 0.01 0.00 - 0.03 x10'3/uL ABS. NUCLEATED RBC'S 0.00 0.00 x10'3/uL LACTIC ACID Result Value Ref Range LACTIC ACID 1.2 0.4 - 2.0 MMOL/L COMPREHENSIVE METABOLIC PANEL Result Value Ref Range SODIUM 142 136 - 145 MMOL/L POTASSIUM 2.9 (LL) 3.5 - 5.1 MMOL/L CHLORIDE S/P/B 103 98 - 107 MMOL/L CO2 32.4 (H) 21.0 - 32.0 MMOL/L GLUCOSE 130 (H) 70 - 99 MG/DL BUN 6 6 - 24 MG/DL CREATININE S/P/B 0.66 0.55 - 1.02 MG/DL CALCIUM 8.5 8.4 - 10.5 MG/DL BILIRUBIN TOTAL S/P/B 0.4 0.2 - 1.0 MG/DL ALKALINE PHOSPHATASE S/P/B 62 41 - 108 U/L AST 64 (H) 15 - 37 U/L ALT 75 (H) 14 - 59 U/L TOTAL PROTEIN S/P/B 7.4 6.4 - 8.2 G/DL ALBUMIN S/P/B 3.1 (L) 3.4 - 5.0 G/DL ANION GAP 6.6 5.0 - 15.0 MMOL/L OSMOLALITY (CALC) 293 MOSM/KG eGFR Non-Afr. Amer. >90 >89 ML/MIN/1.73 M2 eGFR Afr. Amer. >90 >89 ML/MIN/1.73 M2 GFR NOTES GFR REFERENCES: Blood gas, venous Result Value Ref Range O2 SAT VENOUS 44 40 - 70 % PH VENOUS 7.48 (H) 7.35 - 7.45 PC02 VENOUS 43.4 41.0 - 51.0 MMHG PO2 VENOUS 32.0 20.0 - 40.0 MM HG VENOUS BASE EXCESS 7.6 MMOL/L BICARB-VENOUS 31.6 (H) 22.0 - 29.0 MMOL/L TCO2 33.0 (H) 25.0 - 29.0 MMOL/L LITER FLOW 2L NASAL TROPONIN, QUANT Result Value Ref Range TROPONIN I <0.017 0.000 - 0.056 ng/mL. C-REACTIVE PROTEIN Result Value Ref Range C-REACTIVE PROTEIN 3.69 (H) <0.30 mg/dL PROTIME/INR, VENOUS Result Value Ref Range Protime 13.0 10.8 - 13.2 SEC INR 1.1 0.9 - 1.1 LIPASE Result Value Ref Range LIPASE 90 73 - 393 UNITS/L MAGNESIUM Result Value Ref Range MAGNESIUM 1.6 (L) 1.8 - 2.4 MG/DL PRO-BRAIN NATRIURETIC PEPTIDE Result Value Ref Range Pro-B TYPE NATRIURETIC PEPTIDE 301 (H) <125 PG/ML IMAGING STUDIES XR CHEST PORTABLE Final Result by User, [id number] (02/28 1200) 02/29/2020, 1135 hours. HISTORY: Short of breath. [...] By: Jed Poe MD, 02/29/2020 11:58 AM EKG Reading Date/Time: 02/29/2020 1:49 PM Performed by: Russell Grimaldo MD Authorized by: Russell Grimaldo MD Interpreted by ED physician: no specific st-t changed. Rhythm: sinus rhythm Rate: normal Clinical impression: non-specific ECG Critical Care Performed by: Russell Grimaldo MD Authorized by: Russell Grimaldo MD Critical care provider statement: Critical care time (minutes): 30 Critical care was necessary to treat or prevent imminent or life-threatening deterioration of the following conditions: Respiratory failure Critical care was time spent personally by me on the following activities: Development of treatmentplan with patient or surrogate, discussions with consultants, evaluation of patient's response to treatment, obtaining history from patient or surrogate, ordering and performing treatments and interventions, ordering and review of laboratory studies, ordering and review of radiographic studies, pulse oximetry and re-evaluation of patient's condition ED Course / Medical Decision Making 12:[address] Block agrees to accept the Sofia MDM Number of Diagnoses or Management Options Pneumonia: new and requires workup Amount and/or Complexity of Data Reviewed Clinical lab tests: reviewed Tests in the radiology section of CPT??: reviewed Obtain history from someone other than the patient: yes Discuss the patient with other providers: yes Risk of Complications, Morbidity, and/or Mortality Presenting problems: high Diagnostic procedures: high Management options: high Critical Care Total time providing critical care: 30-74 minutes Patient Progress Patient progress: stable Clinical Impression Pneumonia (Primary) Hypoxia Disposition: Transfer to Another Facility Russell Grimaldo MD 02/29/20 1352 * Jose Ramon Chacko RN - 02/29/2020 10:12 AM CDT Arrives per w/c qwith c/o trouble breathing, cough, general bodyaches and fever x1 week. Pt reportslast Friday she called her pmd who advised she go to er. Pt went to [place] [facility], was advised they would not see her until she had a covid test. Pt reports she had a covid test at urgent care and gota negative result last . Cont to feel bad and feels sob, having fevers, reports temp was 104 last noc. Has not taken any sx relief meds today. documented in this encounter Plan of Treatment Not on file documented as of this encounter Procedures Procedure Name Priority Date/Time Associated Diagnosis Comments CRITICAL CARE Routine 02/29/2020 1:45 PM CDT ELECTROCARDIOGRAM REPORT Routine 020 1:45 PM CDT XR CHEST PORTABLE STAT 02/29/2020 11: 43 AM CDT PRO-BRAIN NATRIURETIC PEPTIDE STAT 02/29/2020 11:20 AM CDT BLOOD GAS, VENOUS STAT 02/29/2020 11: 20 AM CDT PROTHROMBIN TIME, VENOUS STAT 11:20 AM CDT COMPREHENSIVE METABOLIC PANEL STAT 02/29/2020 11:20 AM CDT LACTIC ACID STAT 02/29/2020 11:20 AM CDT C-REACTIVE PROTEIN STAT 02/29/2020 11 :20 AM CDT CULTURE, BACTERIA, BLOOD STAT 11:20 AM CDT CULTURE, BACTERIA, BLOOD STAT 11:20 AM CDT CBC W/DIFF AUTOMATED STAT 02/29/2020 11:20 AM CDT TROPONIN, QUANT STAT 02/29/2020 11:20 AM CDT MAGNESIUM STAT 02/29/2020 11:20 AM CDT LIPASE STAT 02/29/2020 11:20 AM CDT ECG 12-LEAD Routine 02/29/2020 10:13 AM CDT documented in this encounter Results * Critical Care (02/29/2020 1:45 PM CDT) Narrative Russell Grimaldo MD - 02/29/2020 1:45 PM CDT Russell Grimaldo MD ? 02/29/2020 ??1:52 PM Critical Care Performed by: Russell Grimaldo MD Authorized by: Russell Grimaldo MD Critical care provider statement: ??Critical care time (minutes): ??30 ??Critical care was necessary to treat or prevent imminent or life-threatening deterioration of the following conditions: ??Respiratory failure ??Critical care was time spent personally by me on the following activities: ??Development of treatment plan with patient or surrogate, discussions with consultants, evaluation of patient's response to treatment, obtaining history from patient or surrogate, ordering and performing treatments and interventions, ordering and review of laboratory studies, ordering and review of radiographic studies, pulse oximetry and re-evaluation of patient's condition Russell Grimaldo MD PROCEDURE/MINOR SURGICAL ORDERAB LES Final Result * EKG Reading (02/29/2020 1:45 PM CDT) Russell Hardwick MD - 02/29/2020 1:45 PM CDT Russell Grimaldo MD ? 02/29/2020 ??1:52 PM EKG Reading Date/Time: 02/29/2020 1:49 PM Performed by: Russell Grimaldo MD Authorized by: Russell Grimaldo MD Interpreted by ED physician: no specific st-t changed. Rhythm: sinus rhythm Rate: normal Clinical impression: non-specific ECG Russell Grimaldo MD [facility] CARDIOVASCULAR SYSTEM SERVICE S Final Result * XR CHEST PORTABLE (02/29/2020 11:43 AM CDT) Anatomical Region Laterality Modality Chest Radiographic Kathleen ging 02/29/2020 11:5 8 AM CDT Impressions 02/29/2020 11:59 AM CDT IMPRESSION: Pulmonary opacities suggesting bilateral pulmonary infiltrates, less likely congestion. Interpreted By: Jed Poe MD, 02/29/2020 11:58 AM Narrative 02/29/2020 11:59 AM CDT 02/29/2020, 1135 hours. HISTORY: Short of breath. [...] evidence of left pleural effusion. No pneumothorax. Procedure Note Jed Poe MD - 02/29/2020 02/29/2020, 1135 hours. HISTORY: Short of breath. Cough. Body aches and fever for one week.History of hypertension. EXAM: Erect portable AP chest. No comparison. FINDINGS: Patchy infiltrate or less likely congestion in the mid andlower lungs bilaterally. The heart size is upper normal. No central vascular distention. Slight blurring of the right diaphragm, cannot exclude tiny right pleural effusion. No evidence of left pleural effusion. No pneumothorax. IMPRESSION: Pulmonary opacities suggesting bilateral pulmonary infiltrates, lesslikely congestion. Interpreted By: Jed Poe MD, 02/29/2020 11:58 AM us Russell Grimaldo MD GENERAL IMAGING Final Result * (ABNORMAL) PRO-BRAIN NATRIURETIC PEPTIDE (02/29/2020 11:20 AM CDT) PRO-B TYPE NATRIURETIC PEPTIDE 301(H) <125 PG/ML 02/29/2020 12:31 PM CDT [facility] Comment: CUT POINTS ESTABLISHED BY [employer] ON NT PROBNP (ICON) STUDY (2006). AGE INDEPENDENT: <300 PG/ML HAS A 99% NEGATIVE PREDICTIVE VALUE FOR EXCLUDING ACUTE CHF <50 YEARS: >450 PG/ML IS CONSISTENT WITH ACUTE CHF 50-75 YEARS: >900 PG/ML IS CONSISTENT WITH ACUTE CHF >75 YEARS: >1800 PG/ML IS CONSISTENT WITH ACUTE CHF IN PATIENTS WITH RENAL INSUFFICIENCY (GFR <60), >1200 PG/ML YIELDS A DIAGNOSTIC SENSITIVITY AND SPECIFICITY OF 89% AND 72% FOR ACUTE CHF. 02/29/2020 11:2 0 AM CDT us Russell Grimaldo MD LABORATORY Final Result Performing Organization Address [facility] [place]/[facility] Co de Phone Number [facility] [address] [place] [address], * (ABNORMAL) MAGNESIUM (02/29/2020 11:20 AM CDT) MAGNESIUM 1.6(L) 1.8 - 2.4 MG/DL 02/29/2020 12:31 PM CDT [facility] 02/29/2020 11:2 0 AM CDT us Russell Grimaldo MD LABORATORY Final Result Performing Organization Address [facility] [place]/[facility]/ZIP Co de Phone Number [facility] [address] [place] [id number], * LIPASE (02/29/2020 11:20 AM CDT) LIPASE 90 73 - 393 UNITS/L 02/29/2020 11:59 AM CDT [facility] 02/29/2020 11:2 0 AM CDT us Russell Grimaldo MD LABORATORY Final Result [address] [address], * PROTIME/INR, VENOUS (02/29/2020 11:20 AM CDT) PROTIME 13.0 10.8 - 13.2 SEC 02/29/2020 11:36 AM CDT [facility] INR 1.1 0.9 - 1.1 02/29/2020 11:36 AM CDT [facility] 02/29/2020 11:2 0 AM CDT us Russell Grimaldo MD LABORATORY Final Result Performing Organization Address [facility]/ZIP Co de Phone Number [facility] [address] [place] [phone], * (ABNORMAL) C-REACTIVE PROTEIN (02/29/2020 11:20 AM CDT) C-REACTIVE PROTEIN 3.69(H) <0.30 mg/dL 02/29/2020 11:59 AM CDT [facility] 02/29/2020 11:2 0 AM CDT us Russell Grimaldo MD LABORATORY Final Result Performing Organization Address City/[facility]/ZIP Co de Phone Number [facility] [address] [place] [phone], * TROPONIN, QUANT (02/29/2020 11:20 AM CDT) TROPONIN I <0.017 0.000 - 0.056 ng/mL. 02/29/2020 11:59 AM CDT [facility] Comment: ALTHOUGH VALUES OVER 0.056 ARE CONSIDERED ABNORMAL AND REPRESENT MYOCARDIAL DAMAGE,A CUTOFF OF 0.600 HAS BEEN RECOMMENDED REPRESENTING ACUTE MYOCARDIAL INFARCTION. 02/29/2020 11:2 0 AM CDT us Russell Grimaldo MD LABORATORY Final Result Performing Organization Address [facility] Co de Phone Number [facility] [address] [place] [address], * (ABNORMAL) Blood gas, venous (02/29/2020 11:20 AM CDT) Pathologist [facility] O2 SAT VENOUS 44 40 - 70 % 02/29/2020 11:32 AM CDT [facility] PH VENOUS 7.48(H) 7.35 - 7.45 02/29/2020 11:32 AM CDT [facility] PCO2 VENOUS 43.4 41.0 - 51.0 MMHG 02/29/2020 11:32 AM CDT [facility] PO2 VENOUS 32.0 20.0 - 40.0 MM HG 02/29/2020 11:32 AM CDT [facility] VENOUS BASE EXCESS 7.6 MMOL/L 02/29/2020 11:32 AM CDT [facility] BICARB VENOUS 31.6(H) 22.0 - 29.0 MMOL/L 02/29/2020 11:32 AM CDT [facility] TCO2 33.0(H) 25.0 - 29.0 MMOL/L 02/29/2020 11:32 AM CDT [facility] LITER FLOW 2L NASAL 02/29/2020 11:27 AM CDT [facility] Blood specimen (specimen) 02/29/2020 11:20 AM CDT us Russell Grimaldo MD LABORATORY Final Result [facility] [address] [phone], * (ABNORMAL) COMPREHENSIVE METABOLIC PANEL (02/29/2020 11:20 AM CDT) SODIUM S/P/B 142 136 - 145 MMOL/L 02/29/2020 11:59 AM CDT [facility] POTASSIUM S/P/B 2.9(LL) 3.5 - 5.1 MMOL/L 02/29/2020 11:59 AM CDT [facility] Comment:CRITICAL VALUE MALIN D TO ALONSO 1158 R and V CHLORIDE S/P/B 103 98 - 107 MMOL/L 02/29/2020 11:59 AM CDT [facility] CO2 32.4(H) 21.0 - 32.0 MMOL/L 02/29/2020 11:59 AM CDT [facility] GLUCOSE 130(H) 70 - 99 MG/DL 02/29/2020 11:59 AM CDT [facility] Comment: FASTING GLUCOSE 100 TO 125 MG/DL IS CONSISTENT WITH IMPAIRED FASTING GLUCOSE. FASTING GLUCOSE >125 MG/DL IS CONSISTENT WITH DIABETES. RANDOM GLUCOSE >200 MG/DL WITH HYPERGLYCEMIC SYMPTOMS IS CONSISTENT WITH DIABETES. PER ADA GUIDELINES BUN 6 6 - 24 MG/DL 02/29/2020 11:59 AM CDT [facility] CREATININE S/P/B 0.66 0.55 - 1.02 MG/DL 02/29/2020 11:59 AM CDT [facility] CALCIUM S/P/B 8.5 8.4 - 10.5 MG/DL 02/29/2020 11:59 AM CDT [facility] BILIRUBIN TOTAL S/P/B 0.4 0.2 - 1.0 MG/DL 02/29/2020 11:59 AM CDT [facility] Comment: THIS ASSAY IS NOT RECOMMENDED FOR PATIENTS UNDERGOING TREATMENT WITH ELTROMBOPAG DUE TO THE POTENTIAL FOR FALSELY ELEVATED RESULTS. ALKALINE PHOSPHATASE S/P/B 62 41 - 108 U/L 02/29/2020 11:59 AM CDT [facility] AST 64(H) 15 - 37 U/L 02/29/2020 11:59 AM CDT [facility] ALT 75(H) 14 - 59 U/L 02/29/2020 11:59 AM CDT [facility] TOTAL PROTEIN S/P/B 7.4 6.4 - 8.2 G/DL 02/29/2020 11:59 AM CDT [facility] ALBUMIN S/P/B 3.1(L) 3.4 - 5.0 G/DL 02/29/2020 11:59 AM CDT [facility] ANION GAP 6.6 5.0 - 15.0 MMOL/L 02/29/2020 11:59 AM CDT [facility] OSMOLALITY (CALC) 293 MOSM/KG 020 11:59 AM CDT [facility] Comment:REFERENCE RANGE NOT ESTABLISHED EGFR NON-AFR. AMER. >90 >89 ML/MIN/1. 73 M2 02/29/2020 11:59 AM CDT [facility] EGFR AFR. AMER. >90 >89 ML/MIN/1. 73 M2 02/29/2020 11:59 AM CDT [facility] GFR NOTES GFR REFERENCE S: 02/29/2020 11:59 AM T [facility] Comment: THE ESTIMATED GFR IS [...] ml/min/1.73 m2 G5,KIDNEY FAILURE: <15 ml/min/1.73 m2 02/29/2020 11:2 0 AM CDT Russell Grimaldo MD LABORATORY Final Result [facility] [address] [place] [phone], * LACTIC ACID (02/29/2020 11:20 AM CDT) LACTIC ACID VENOUS 1.2 0.4 - 2.0 MMOL/L 02/29/2020 11:50 AM CDT [facility] 02/29/2020 11:2 0 AM CDT us Russell Grimaldo MD LABORATORY Final Result Performing Organization Address City/[facility]/ZIP Co de Phone Number [facility] [address] [place] [phone], * CULTURE, BACTERIA, BLOOD (02/29/2020 11:20 AM CDT) SPEC DESCRIPTION BLOOD 02/29/2020 10:47 AM CDT [facility] SPECIAL REQUESTS NO SPECIAL REQUEST 02/29/2020 10:47 AM CDT [facility] CULTURE RESULT NO GROWTH 5 DAYS 03/05/2020 12:23 PM CDT [facility] BLOOD SPECIMEN OBTAINED FOR BLOOD CULTURE / Unknown 02/29/2020 11:20 AM CDT 02/29/2020 11:27 AM CDT us Russell Grimaldo MD MICROBIOLOGY - GENERAL ORDERABLE S Final Result Performing Organization Address City/[facility]/ZIP Co de Phone Number [facility] [address] [place] [phone], * CULTURE, BACTERIA, BLOOD (02/29/2020 11:20 AM CDT) SPEC DESCRIPTION BLOOD 02/29/2020 10:47 AM CDT [facility] SPECIAL REQUESTS NO SPECIAL REQUEST 02/29/2020 10:47 AM CDT [facility] CULTURE RESULT NO GROWTH 5 DAYS 03/05/2020 12:23 PM CDT [facility] BLOOD SPECIMEN OBTAINED FOR BLOOD CULTURE / Unknown 02/29/2020 11:20 AM CDT 02/29/2020 11:27 AM CDT us Russell Grimaldo MD MICROBIOLOGY - GENERAL ORDERABLE S Final Result [facility] [address] [place] [address], * (ABNORMAL) CBC W/DIFF AUTOMATED (02/29/2020 11:20 AM CDT) WBC 3.6(L) 4.5 - 10.8 x10'3/uL 02/29/2020 11:33 AM CDT [facility] RBC 3.72(L) 4.10 - 5.40 x10'6/uL 02/29/2020 11:33 AM CDT [facility] HGB 11.3(L) 12.0 - 16.0 G/DL 02/29/2020 11:33 AM CDT [facility] HCT 34.4(L) 36.0 - 47.0 % 02/29/2020 11:33 AM CDT [facility] MCV 92.5 78.0 - 100.0 FL 02/29/2020 11:33 AM CDT [facility] MCH 30.4 27.0 - 31.0 PG 02/29/2020 11:33 AM CDT [facility] MCHC 32.8(L) 33.0 - 36.0 G/DL 02/29/2020 11:33 AM CDT [facility] RDW 13.0 11.5 - 14.5 % 02/29/2020 11:33 AM CDT [facility] PLT 190 150 - 350 x10'3/uL 02/29/2020 11:33 AM CDT [facility] MPV 10.8(H) 7.4 - 10.4 FL 02/29/2020 11:33 AM CDT [facility] DIFFERENTIAL COMMENT NORMAL REFERENCE RANGE NOT ESTABLISHED FOR THE PROPORTIONAL LEUKOCYTE DIFFERENTIAL. 02/29/2020 11:33 AM CDT [facility] SEG NEUTROPHILS 85.7 % 0 11:33 AM CDT [facility] LYMPHOCYTES 9.6 % 02/29/2020 11:33 AM CDT [facility] MONOCYTES 4.4 % 02/29/2020 11:33 AM CDT [facility] EOSINOPHILS 0.0 % 02/29/2020 11:33 AM CDT [facility] BASOPHILS 0.0 % 02/29/2020 11:33 AM CDT [facility] IMMATURE GRANS % 0.3 % 02/29/20 20 11:33 AM CDT [facility] NRBC 0.0 % 02/29/2020 11:33 AM CDT [facility] ABS. NEUTROPHILS 3.11 1.60 - 8.30 x10'3/uL 02/29/2020 11:33 AM CDT [facility] ABS. LYMPHOCYTES 0.35(L) 0.80 - 4.70 x10'3/uL 02/29/2020 11:33 AM CDT [facility] ABS. MONOCYTES 0.16 0.00 - 1.50 x10'3/uL 02/29/2020 11:33 AM CDT [facility] ABS. EOSINOPHILS 0.00 0.00 - 0.40 x10'3/uL 02/29/2020 11:33 AM CDT [facility] ABS. BASOPHILS 0.00 0.00 - 0.20 x10'3/uL 02/29/2020 11:33 AM CDT [facility] ABS. IMMATURE GRANULOCYTES 0.01 0.00 - 0.03 x10'3/uL 02/29/2020 11:33 AM CDT [facility] ABS. NUCLEATED RBC'S 0.00 0.00 x10'3/uL 02/29/2020 11:33 AM CDT [facility] 02/29/2020 11:2 0 AM CDT us Russell Grimaldo MD LABORATORY Final Result [facility] [address] [place] [address], * ECG 12 lead (02/29/2020 10:13 AM CDT) 02/29/2020 10:1 3 AM CDT Narrative [facility] [place] [facility] - 03/01/2020 3:12 AM CDT ? [facility] ?[address] [place], [place] ??[id number] ? Test Date: ?2020-02-29 Pat Name: ? ALTHEA KONG ?Department: ? Room: ? Gender: ? Female ? Fork Assembler: ?? NDOS : ?1965 ? Requested By: RUSSELL GRIMALDO Order Number: [id number] ? Reading MD: ?? Manish Solomon ? Measurements Intervals ?[place] ? Rate: ? 98 ? P: ?26 RI: ? 152 ?QRS: ?-38 QRSD: ? 98 ? T: ?50 QT: ? 346 ? QTc: ?444 ? Interpretive Statements SINUS RHYTHM LEFT AXIS DEVIATION Procedure Note Manish Solomon MD - 03/01/[address] [place] [address] Test Date: 2020-02-29 Pat Name: ALTHEA KONG Department: Room: Gender: Female Fork Assembler: JESICAJINA : 1965 Requested By: RUSSELL GRIMALDO Order Number: [id number] Barbie MD: Manish Solomon Measurements Intervals [place] Rate: 98 P: 26 RI: 152 QRS: -38 QRSD: 98 T: 50 QT: 346 QTc: 444 Interpretive Statements SINUS RHYTHM LEFT AXIS DEVIATION us Russell Grimaldo MD ECG ORDERABLES Final Result [facility] documented in this encounter Visit Diagnoses Diagnosis Pneumonia- Primary Pneumonia, organism unspecified Hypoxia Hypoxemia documented in this encounter Administered Medications Inactive Administered Medications - up to 3 most recent administrations Medication Order MAR Action Action Date Dose Rate Site acetaminophen (TYLENOL) tablet 650 mg 650 mg, Oral, Once, 1 dose, On Fri02/29/20 at 1100, Maximum dose of acetaminophen is 4000 mg from all sources in 24 hours. Given 02/29/2020 11:44 AM CDT 650 mg azithromycin (ZITHROMAX) 500 mg in sodium chloride 0.9 % 250 mL IVPB 500 mg, Intravenous, at 250 mL/hr, Once, 1 dose, On Fri02/29/20 at 1100 New Bag 02/29/2020 11:46 AM CDT 500 mg 250 mL/hr ketorolac (TORADOL) injection 15 mg 15 mg, Intravenous, Once, 1 dose, On Fri02/29/20 at 1130, For IV administration, give over 15 seconds. Given 02/29/2020 11:44 AM CDT 15 mg magnesium sulfate IVPB 2 g 2 g, Intravenous, at 25 mL/hr, Once, 1 dose, On Fri02/29/20 at 1300 New Bag 02/29/2020 1:33 PM CDT 2 g 25 mL/hr potassium chloride CR (KLOR-CON M) tablet 60 mEq 60 mEq, Oral, Once, 1 dose, On Fri02/29/20 at 1215, Give with food to prevent stomach upset. Do not chew, crush, or suck on tablet. May break in half. May dissolve whole tablet in 120 mL of water and drink immediately. Given 02/29/2020 1:02 PM CDT 60 mEq sodium chloride 0.9% bolus infusion SOLN 500 mL 500 mL, Intravenous, Administer over 15 Minutes, Once, 1 dose, On Fri02/29/20 at 1100 New Bag 02/29/2020 11:45 AM CDT 500 mLs documented in this encounter Active and Recently Administered Medications Times are shown in CDT. Scheduled Medication Order 02/27/2020 02/28/2020 02/29/2020 acetaminophen (TYLENOL) tablet 650 mg (COMPLETED) 650 mg, Oral, Once, 1 dose, On Fri02/29/20 at 1100, Maximum dose of acetaminophen is 4000 mg from all sources in 24 hours. 1144 (Given - Provid er: Jose Ramon Chacko RN) azithromycin (ZITHROMAX) 500 mg in sodium chloride 0.9 % 250 mL IVPB (COMPLETED) 500 mg, Intravenous, at 250 mL/hr, Once, 1 dose, On Fri02/29/20 at 1100 1146 (New Bag - Prov ider: Jose Ramon Chacko RN)1250 (Infusion Stop Time - Provider: Jose Ramon Chacko RN) ketorolac (TORADOL) injection 15 mg (COMPLETED) 15 mg, Intravenous, Once, 1 dose, On Fri02/29/20 at 1130, For IV administration, give over 15 seconds. 1144 (Given - Provid er: Jose Ramon Chacko RN) magnesium sulfate IVPB 2 g (COMPLETED) 2 g, Intravenous, at 25 mL/hr, Once, 1 dose, On Fri02/29/20 at 1300 1333 (New Bag - Prov ider: Jose Ramon Chacko RN)1354 (Infusing on Discharge from Facility - Provider: Jose Ramon Chacko RN) potassium chloride CR (KLOR-CON M) tablet 60 mEq (COMPLETED) 60 mEq, Oral, Once, 1 dose, On Fri02/29/20 at 1215, Give with food to prevent stomach upset. Do not chew, crush, or suck on tablet. May break in half. May dissolve whole tablet in 120 mL of water and drink immediately. 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
--- OUTSIDE RECORDS SUMMARY | 2024-07-15 23:58 | XMS_ITS | Encounter Summary ---
Author Organization [facility] Address [facility] 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
--- NOTE | 2024-07-22 10:40 | WPDHOLTEREM ---
Holter/Event Monitor Holter/Event Monitor Date of procedure: 07/08/24 Holter/Event Procedure: 3-7 Day Holter Monitor Conclusion: 1. 5 days holter monitor on 07/08/14. 2. Predominant rhythm is sinus rhythm. HR range 45-164 bpm; average HR 60 bpm. HR at 45 pm was on 07/13/24 at 4:58 am. 3. There are rare premature supraventricular complexes, rare supraventricular couplets, and rare supraventricular triplets. There are 60 episodes of atrial tachycardia/SVT with fastest at 160 bpm and longest lasting 16 beats. 4. There are rare premature ventricular complexes. No ventricular tachycardia. 5. No significant pauses greater than 3 seconds. 6. Patient reports 6 episodes of symptoms of shortness of breath, chest pain which demonstrate sinus rhythm, HR range 57-75 bpm with 3 episodes with PAC's and 1 episode with PVC.
== END 2024-07-08 09:41 | disposition home or self-care (01) ==
LOC: CHSCARD 09:43
PROVIDERS: PCP Internal Medicine; Visit Provider Internal Medicine
DX: I49.8 Other specified cardiac arrhythmias (principal); R42 Dizziness and giddiness; R06.02 Shortness of breath
CPT/HCPCS: 93246